=== PATIENT | female | born 1955 | race Caucasian/White ===

== ENCOUNTER → 2016-11-08 | Outpatient (CLI) | payer MEDICARE, BC ==
[2016-11-08 12:05] LABS: Basophils % (A) 1 %; CH 32.1; CHCM 32.7; Eosinophils # (A) 0.2 k/uL (0-0.7); Eosinophils % (A) 3 %; HCT 43.6 % (34.0-46.0); HDW 2.91; Luc # (Auto) 0.19; Luc % (Auto) 3; Lymphocytes # (A) 1.9 k/uL (1.0-4.8); Lymphocytes % (A) 27 %; MCH 31.8 pg (25.0-35.0); MCHC 32.1 g/dL (31.0-37.0); MCV 98.8 fL (80.0-100.0); Mean Platelet Volume 7.7; Monocytes # (A) 0.4 k/uL (0-1.0); Monocytes % (A) 6 %; Neutrophils # (A) 4.1 k/uL (1.3-7.7); Neutrophils % (A) 60 %; RBC 4.41 m/uL (3.80-5.40); RDW 14.4 % (11.5-15.5); WBC 6.8 k/uL (3.8-10.6); WBC (Perox) 7.01
[2016-11-08 12:17] LABS: ALT 30 U/L (9-52); AST 18 U/L (14-36); Alkaline Phosphatase 106 U/L (38-126); Anion Gap 11 mmol/L; Blood Urea Nitrogen 16 mg/dL (7-17); Calcium 9.4 mg/dL (8.4-10.2); Carbon Dioxide 25 mmol/L (22-30); Chloride 107 mmol/L (98-107); Cholesterol 173 mg/dL (<200); Glucose 100 mg/dL (74-99); HDL Cholesterol 49 mg/dL (40-60); Non-African American GFR(MDRD) 56 (>60 ml/min/1.73 sqM); Potassium 4.4 mmol/L (3.5-5.1); Sodium 143 mmol/L (137-145); Total Bilirubin 0.6 mg/dL (0.2-1.3); Total Protein 6.7 g/dL (6.3-8.2); Triglycerides 121 mg/dL (<150)
[2016-11-08 13:21] LABS: Vitamin B12 299 pg/mL (239-931)
== END | disposition home or self-care (01) ==
LOC: LABWHC1 11:35
PROVIDERS: ATTEND Family Medicine
DX: E55.9 Vitamin D deficiency, unspecified (principal); I10 Essential (primary) hypertension; E78.00 Pure hypercholesterolemia, unspecified; E53.8 Deficiency of other specified B group vitamins; E03.9 Hypothyroidism, unspecified
CPT/HCPCS: 36415; 80053; 80061; 82306; 82607; 82746; 84443; 85025

== ENCOUNTER → 2016-11-26 | Outpatient (CLI) | payer MEDICARE, BC ==
--- NOTE | 2016-11-26 13:34 | US ---
EXAMINATION TYPE: US thyroid st tissue head/neck DATE OF EXAM: 11/26/2016 12:38 PM COMPARISON: NONE CLINICAL HISTORY: E04.1 THYROID NODULE. follow up from 2013 scan GLAND SIZE: Right Lobe: 3.9 x 1.5 x 1.5 cm Overall Parenchyma: heterogenous Left Lobe: 3.4 x 1.4 x 1.4 cm Overall Parenchyma: heterogeneous Isthmus Thickness: 0.3 cm NODULES RIGHT: # of nodules measured on right: 2 1. 0.6 X 0.6 x 0.7 cm hypoechoic solid nodule at the lower pole with well-defined margins; present with microcalcifications. This nodule is wider than tall and shows intranodular vascularity. Prior size: 0.6 x 0.5 x 0.6 cm 2. 0.7 X 0.3 x 0.7 cm hypoechoic mixed nodule at the mid pole with well-defined margins; . This nod ule is taller than wide and shows no intranodular vascularity. Prior size: not previously measured even though multiple other nodules were seen under 5mm. LEFT: # of nodules measured on left: 1 1. 0.9 X 0.4 x 0.7 cm hypoechoic cystic nodule at the mid pole with well-defined margins; . This n odule is wider than tall and shows no intranodular vascularity. Prior size: 0.6 x 0.3 x 0.6 cm ISTHMUS: # of nodules measured in the isthmus: 0 Bilateral neck scanned, no evidence of lymphadenopathy. Nodules as described IMPRESSION: MULTINODULAR GOITER.
== END | disposition home or self-care (01) ==
LOC: RADUSWWP 12:19
PROVIDERS: ATTEND Family Medicine
DX: E04.2 Nontoxic multinodular goiter (principal)
CPT/HCPCS: 76536

== ENCOUNTER → 2017-03-01 | Outpatient (CLI) | payer MEDICARE, BC ==
[2017-03-01 10:24] LABS: INR 1.1 (<1.2); Partial Thromboplastin Time 23.6 sec (22.0-30.0); Prothrombin Time 10.8 sec (9.0-12.0)
== END | disposition home or self-care (01) ==
LOC: LABWHC1 09:51
PROVIDERS: ATTEND Physical Medicine & Rehabilitation
DX: M51.17 Intervertebral disc disorders with radiculopathy, lumbosacral region (principal); M43.16 Spondylolisthesis, lumbar region; M47.817 Spondylosis without myelopathy or radiculopathy, lumbosacral region; M41.86 Other forms of scoliosis, lumbar region; R20.2 Paresthesia of skin; Z86.718 Personal history of other venous thrombosis and embolism; Z51.81 Encounter for therapeutic drug level monitoring; Z79.01 Long term (current) use of anticoagulants
CPT/HCPCS: 36415; 85610; 85730; 86735; 86762; 86765; 86787

== ENCOUNTER → 2017-03-15 | Outpatient (CLI) | payer MEDICARE, BC | END | disposition home or self-care (01) | LOC: LABWHC1 13:48 | PROVIDERS: ATTEND Internal Medicine Endocrinology, Diabetes & Metabolism | DX: E03.8 Other specified hypothyroidism (principal); E04.1 Nontoxic single thyroid nodule | CPT/HCPCS: 36415; 84439; 84443; 84481 ==

== ENCOUNTER → 2017-07-11 | Outpatient (CLI) | payer MEDICARE, BC ==
[2017-07-11 12:08] LABS: Basophils % (A) 1 %; Eosinophils # (A) 0.2 k/uL (0-0.7); Eosinophils % (A) 4 %; HDW 2.72; HGB 13.6 gm/dL (11.4-16.0); Luc # (Auto) 0.24; Luc % (Auto) 4; Lymphocytes # (A) 2.1 k/uL (1.0-4.8); Lymphocytes % (A) 33 %; MCH 31.5 pg (25.0-35.0); MCHC 32.3 g/dL (31.0-37.0); MCV 97.3 fL (80.0-100.0); Mean Platelet Volume 7.1; Monocytes # (A) 0.4 k/uL (0-1.0); Monocytes % (A) 6 %; Neutrophils # (A) 3.4 k/uL (1.3-7.7); Neutrophils % (A) 54 %; RBC 4.31 m/uL (3.80-5.40); RDW 14.1 % (11.5-15.5); WBC 6.4 k/uL (3.8-10.6); WBC (Perox) 6.43
[2017-07-11 12:20] LABS: Appearance,Urine Cloudy (Clear); Bacteria,Urine Rare /hpf; Bilirubin,Urine Negative (Negative); Glucose,Urine (UA) Negative (Negative); Ketones,Urine Negative (Negative); Leukocyte Esterase,Urine Negative (Negative); Mucus,Urine Few /hpf; Nitrite,Urine Negative (Negative); PH, Urine 5.5 (5.0-8.0); Particle Count 4844; Protein,Urine 1+ (Negative); RBC,Urine <1 /hpf (0-5); Specific Gravity,Urine 1.023 (1.001-1.035); Squamous Epithelial Cell,Urine 12 /hpf (0-4); UA Billing (MACRO vs. MICRO) MICRO; Urobilinogen,Urine <2.0 mg/dL (<2.0); WBC,Urine 2 /hpf (0-5)
[2017-07-11 12:40] LABS: Anion Gap 8 mmol/L; Blood Urea Nitrogen 16 mg/dL (7-17); Calcium 9.5 mg/dL (8.4-10.2); Carbon Dioxide 22 mmol/L (22-30); Chloride 110 mmol/L (98-107); Glucose 104 mg/dL (74-99); Non-African American GFR(MDRD) 56 (>60 ml/min/1.73 sqM); Potassium 4.5 mmol/L (3.5-5.1); Sodium 140 mmol/L (137-145)
[2017-07-11 13:32] LABS: INR 1.9 (<1.2); Partial Thromboplastin Time 29.2 sec (22.0-30.0); Prothrombin Time 18.7 sec (9.0-12.0)
--- NOTE | 2017-07-11 16:38 | XR ---
EXAMINATION TYPE: XR chest 2V DATE OF EXAM: 07/11/2017 COMPARISON: 12/29/2015 HISTORY: 61-year-old female preoperative evaluation prior to lumbar fusion TECHNIQUE: Frontal and lateral views FINDINGS: The heart is borderline enlarged. Aorta and pulmonary vasculature within normal limits. Mild intersti tial prominence is chronic and unchanged. No consolidation or pleural effusion. IMPRESSION: 1. Borderline heart size. 2. Chronic changes; no acute cardiopulmonary process.
== END | disposition home or self-care (01) ==
LOC: LABPAT 11:21
PROVIDERS: ATTEND Orthopaedic Surgery Orthopaedic Surgery of the Spine
DX: Z01.818 Encounter for other preprocedural examination (principal); Z01.812 Encounter for preprocedural laboratory examination; M48.061 Spinal stenosis, lumbar region without neurogenic claudication
CPT/HCPCS: 36415; 71020; 80048; 81001; 85025; 85610; 85730; 87070

== ENCOUNTER → 2017-07-22 | Outpatient (CLI) | payer MEDICARE, BC | END | disposition home or self-care (01) | LOC: LABWHC1 09:00 | PROVIDERS: ATTEND Orthopaedic Surgery Orthopaedic Surgery of the Spine | DX: Z01.812 Encounter for preprocedural laboratory examination (principal) | CPT/HCPCS: 86850; 86900; 86901 ==

== ENCOUNTER → 2017-12-22 | Outpatient (CLI) | payer MEDICARE, BC ==
[2017-12-22 11:06] LABS: Basophils % (A) 0 %; Eosinophils # (A) 0.2 k/uL (0-0.7); Eosinophils % (A) 3 %; HCT 36.1 % (34.0-46.0); HGB 12.2 gm/dL (11.4-16.0); Lymphocytes # (A) 2.4 k/uL (1.0-4.8); Lymphocytes % (A) 30 %; MCH 30.5 pg (25.0-35.0); MCHC 33.6 g/dL (31.0-37.0); MCV 90.6 fL (80.0-100.0); Mean Platelet Volume 7.1; Monocytes # (A) 0.5 k/uL (0-1.0); Monocytes % (A) 6 %; Neutrophils # (A) 4.8 k/uL (1.3-7.7); Neutrophils % (A) 59 %; Platelet Count 328 k/uL (150-450); RBC 3.99 m/uL (3.80-5.40); WBC 8.1 k/uL (3.8-10.6)
[2017-12-22 11:16] LABS: INR 2.9 (<1.2); Prothrombin Time 25.9 sec (9.0-12.0)
[2017-12-22 11:32] LABS: Albumin 3.7 g/dL (3.5-5.0); Calcium 9.4 mg/dL (8.4-10.2); Potassium 4.2 mmol/L (3.5-5.1); Total Bilirubin 0.5 mg/dL (0.2-1.3); Total Protein 6.5 g/dL (6.3-8.2)
== END | disposition home or self-care (01) ==
LOC: LABWHC1 10:40
PROVIDERS: ATTEND Family Medicine
DX: E55.9 Vitamin D deficiency, unspecified (principal); I10 Essential (primary) hypertension; E03.9 Hypothyroidism, unspecified; D68.9 Coagulation defect, unspecified
CPT/HCPCS: 36415; 80053; 80061; 82306; 84443; 85025; 85610

== ENCOUNTER → 2018-05-30 | Outpatient (CLI) | payer MEDICARE, BC ==
--- NOTE | 2018-05-30 08:19 | BD ---
EXAMINATION TYPE: Axial Bone Density DATE OF EXAM: 05/30/2018 CLINICAL HISTORY: Postmenopausal female. Osteoporosis screening. Height: 62.5 Weight: 218 FRAX RISK QUESTIONS: Alcohol (3 or more units per day): no Family History (Parent hip fracture): no Glucocorticoids (More than 3mos): yes, on & off as needed (Ex: prednisone, prednisolone, methylprednisolone, dexamethasone, and hydrocortisone). History of Fracture in Adulthood: yes; both feet, ankle Secondary Osteoporosis: 1. Type 1 Diabetes: no 2. Hyperthyroidism: no 3. Menopause before 45: yes 4. Malnutrition: no 5. Chronic liver disease: no Rheumatoid Arthritis: no Current Tobacco Use: yes RISK FACTORS HISTORY OF: History of Wrist Fracture: yes; patient believes it was right When: as child Surgery to Spine, hips, : yes, laminectomy fusion Jul 2017 & bilateral hip replacement Family History of Osteoporosis: yes, mother Active: yes Diet low in dairy products/other sources of calcium: perhaps about one serving a day of cheese Postmenopausal woman: yes Take estrogen and/or progesterone medications: not now How long: about age [age] Lost more than 2 inches in height since high school: states was about 64 inches tall at one time, to ay measure at about 62.5 inches Frequent falls: yes Poor Health: fair health Hyperparathyroidism: no Adrenal Insufficiency: no MEDICATIONS: Prednisone or other steroids: yes How Long: about 20 years as needed Thyroid Medications: yes Which medication: Synthroid How Long: about 40 years Osteoporosis Medications: no Additional Medications: blood pressure meds, cholesterol meds (see notes scanned ) Additional History: multilevel degenerative disc disease EXAM MEASUREMENTS: Bone mineral densitometry was performed using the [employer]. Bone mineral density NOT measured about the Lumbar spine because of back surgery since last Bone Dens ity study in 2011 Bone mineral density about the R hip NOT measured due to right replacement since last Bone Density st udy in 2011 Bone mineral density about the L hip NOT measured due to left replacement since last Bone Density st udy in 2011 Bone mineral density about the L Wrist (g/cm2): 0.642 T Score values are as follows: -----Dist. R+U: -0.4 -----Prox. R+U: -0.2 -----Radius total: -0.5 Bone mineral density for wrist is BASELINE ( previously scan was performed on hips & Lumbar Spine) IMPRESSION: Normal (Values between +1 and -1 indicate normal bone mass). Consider repeating this study in 5 year s or sooner if there is some new clinical indication. NOTE: T-SCORE=SD OF THE YOUNG ADULT MEAN.
--- NOTE | 2018-05-30 08:51 | US ---
EXAMINATION TYPE: US thyroid st tissue head/neck DATE OF EXAM: 05/30/2018 COMPARISON: 2017 CLINICAL HISTORY: E04.1.THYROID NODULE. GLAND SIZE: Right Lobe: 4.5 X 1.0 X 1.7 cm Overall Parenchyma: heterogenous Left Lobe: 4.1 X 1.1 X 1.2 cm Overall Parenchyma: heterogeneous Isthmus Thickness: 0.2 cm NODULES RIGHT: # of nodules measured on right: 3 1. 0.5 X 0.6 x 0.5 cm solid nodule at the lower pole with well-defined margins; . This nodule is w ider than tall and shows intranodular vascularity. Prior size: 0.6 x 0.6 x 0.7 cm 2. 0.7 X 0.6 x 0.5 cm mixed nodule at the mid pole with well-defined margins; . This nodule is wider than tall and shows no intranodular vascularity. Prior size: 0.7 x 0.3 x 0.7 cm 3. 0.6 X 0.7 x 0.5 cm solid nodule at the upper pole with well-defined margins; present with microca lcifications. This nodule is wider than tall and shows no intranodular vascularity. Prior size: no prior LEFT: # of nodules measured on left: 1 1. 0.9 X 0.6 x 0.4 cm cystic nodule at the mid pole with well-defined margins; . This nodule is wi aiden than tall and shows no intranodular vascularity. Prior size: 0.9 x 0.4 x 0.7 cm ISTHMUS: # of nodules measured in the isthmus: 0 Bilateral neck scanned, no evidence of lymphadenopathy. IMPRESSION: Similar size of the bilateral multiple thyroid nodules in a mildly enlarged thyroid gland compatible with multinodular goiter. No greater than 1 cm nodule.
--- NOTE | 2018-05-30 11:15 | MM ---
Reason for exam: screening (asymptomatic). Last mammogram was performed 1 year and 10 months ago. History: Patient is postmenopausal. Took estrogen for 10 years beginning at age 26. Physical Findings: A clinical breast exam by your physician is recommended on an annual basis and results should be correlated with mammographic findings. MG 3D Screening Mammo W/Cad Bilateral CC and MLO view(s) were taken. Prior study comparison: July 30, 2016, bilateral MG 3d screening mammo w/cad. August 13, 2013, bilateral digital screening mammo w/CAD. The breast tissue is almost entirely fat. No significant changes when compared with prior studies. ASSESSMENT: Benign, BI-RAD 2 RECOMMENDATION: Routine screening mammogram of both breasts in 1 year.
== END ==
LOC: RADBDWWP 07:04
PROVIDERS: ATTEND Family Medicine
DX: Z12.31 Encounter for screening mammogram for malignant neoplasm of breast (principal); E04.2 Nontoxic multinodular goiter; Z78.0 Asymptomatic menopausal state
CPT/HCPCS: 76536; 77063; 77067; 77081

== ENCOUNTER → 2019-01-24 | Outpatient (CLI) | payer MEDICARE, BC ==
[2019-01-24 11:55] LABS: INR 2.8 (<1.2); Prothrombin Time 27.2 sec (9.0-12.0)
== END | disposition home or self-care (01) ==
LOC: LABWHC1 10:20
PROVIDERS: ATTEND Family Medicine
DX: D68.9 Coagulation defect, unspecified (principal)
CPT/HCPCS: 36415; 85610

== ENCOUNTER → 2020-05-27 | Outpatient (CLI) | payer MEDICARE, BC ==
--- NOTE | 2020-05-27 07:52 | US ---
EXAMINATION TYPE: US thyroid st tissue head/neck DATE OF EXAM: 05/27/2020 COMPARISON: US CLINICAL HISTORY: Z12.31 Screening mammogram; E04.1 thyroid nodule. F/U nodules GLAND SIZE: Right Lobe: 4.0 x 1.4 x 1.1 cm Overall Parenchyma: heterogenous Left Lobe: 3.8 x 1.4 x 1.2 cm Overall Parenchyma: heterogeneous Isthmus Thickness: 0.2 cm NODULES RIGHT: # of nodules measured on right: 1 1. 0.5 X 0.6 x 0.6 cm isoechoic solid nodule at the lower pole with well-defined margins; This nod ule is wider than tall and shows no intranodular vascularity. Prior size: 0.5 x 0.6 x 0.5 cm Stable sub-centimeter cystic nodules scattered throughout right lobe LEFT: # of nodules measured on left: 1 1. 0.7 X 0.2 x 0.5 cm cystic nodule at the mid pole with well-defined margins; This nodule is wider than tall and shows no intranodular vascularity. Prior size: 0.9 x 0.4 x 0.6 cm Stable sub-centimeter cystic nodules scattered throughout left lobe Bilateral neck scanned, no evidence of lymphadenopathy. Stable sub-centimeter nodules bilaterally. IMPRESSION: Stable nonspecific thyroid nodularity.
[2020-05-27 08:25] LABS: Basophils # (A) 0.1 k/uL (0-0.2); Basophils % (A) 1 %; Eosinophils # (A) 0.2 k/uL (0-0.7); Eosinophils % (A) 4 %; HCT 43.3 % (34.0-46.0); HGB 14.3 gm/dL (11.4-16.0); Lymphocytes # (A) 2.4 k/uL (1.0-4.8); Lymphocytes % (A) 35 %; MCH 33.9 pg (25.0-35.0); MCHC 33.1 g/dL (31.0-37.0); MCV 102.3 fL (80.0-100.0); Macrocytosis Slight; Mean Platelet Volume 6.9; Monocytes # (A) 0.4 k/uL (0-1.0); Monocytes % (A) 6 %; Neutrophils # (A) 3.5 k/uL (1.3-7.7); Neutrophils % (A) 52 %; Platelet Count 263 k/uL (150-450); RBC 4.23 m/uL (3.80-5.40); RDW 14.3 % (11.5-15.5); WBC 6.7 k/uL (3.8-10.6)
[2020-05-27 09:01] LABS: Albumin 3.8 g/dL (3.5-5.0); Calcium 9.2 mg/dL (8.4-10.2); Potassium 4.5 mmol/L (3.5-5.1); Total Bilirubin 0.6 mg/dL (0.2-1.3); Total Protein 6.8 g/dL (6.3-8.2)
--- NOTE | 2020-05-28 11:42 | MM ---
Reason for exam: screening (asymptomatic). Last mammogram was performed 2 years ago. History: Patient is postmenopausal and history of other cancer. Took estrogen for 10 years beginning at age 26. Physical Findings: A clinical breast exam by your physician is recommended on an annual basis and results should be correlated with mammographic findings. MG 3D Screening Mammo W/Cad Bilateral CC and MLO view(s) were taken. Prior study comparison: May 30, 2018, bilateral MG 3d screening mammo w/cad. July 30, 2016, bilateral MG 3d screening mammo w/cad. There are scattered fibroglandular densities. There is no discrete abnormality. No significant changes when compared with prior studies. ASSESSMENT: Negative, BI-RAD 1 RECOMMENDATION: Routine screening mammogram of both breasts in 1 year.
== END | disposition home or self-care (01) ==
LOC: RADMAMWWP 06:57
PROVIDERS: ATTEND Family Medicine
DX: Z12.31 Encounter for screening mammogram for malignant neoplasm of breast (principal); E04.1 Nontoxic single thyroid nodule; I10 Essential (primary) hypertension; E55.9 Vitamin D deficiency, unspecified
CPT/HCPCS: 36415; 76536; 77063; 77067; 80053; 82306; 84443; 85025; 85610

== ENCOUNTER 2020-07-12 00:06 | Emergency (ER) | payer MEDICARE, BC ==
[2020-07-12] MEDS ORDERED: SODIUM CHLORIDE 0.9% 500 ML 500 ML IV STA (00:19)
[2020-07-12 00:27] LABS: Glucose,Whole Blood 119 mg/dL (75-99)
--- NOTE | 2020-07-12 00:54 | ED ---
Weakness HPI - General Chief complaint: Weakness Stated complaint: Poss stroke Time Seen by Provider: 07/12/20 00:12 Source: patient, EMS Mode of arrival: EMS Limitations: no limitations, physical limitation - History of Present Illness Initial comments: This patient is a 64-year-old woman brought by ambulance to be evaluated for right-sided weakness. The patient relates that on night at about 8 PM she had a fall. Subsequent to that she noticed development of right-sided weakness which has gotten worse. She also has headache. She does note that there had been a little bit of a headache going back to 3 days is now much worse. The patient states that she takes warfarin and has done so for years after she had developed PE approximately 2004. MD Complaint: focal weakness Onset/Timin -: hour(s) Location: RUE, DILLANE Severity: severe Quality: constant Consistency: constant Improves with: none Worsens with: none Context: trauma/injury - Related Data Home Medications Medication Instructions Recorded Confirmed Aspirin 81 mg PO QAM 07/27/14 07/27/17 Warfarin [Coumadin] 2.5 mg PO SUTUTHSA 07/27/14 07/27/17 Warfarin [Coumadin] 5 mg PO MOWEFR 07/27/14 07/27/17 oxyCODONE HCL [oxyCODONE HCL (IR)] 10 mg PO Q8H PRN 07/27/14 07/27/17 Albuterol Inhaler (Mhu) [Ventolin 2 puff INHALATION RT-Q6H PRN 12/28/15 07/27/17 Hfa Inhaler (Mhu)] Artificial Tears-Hypromellose 1 drops BOTH EYES TID PRN 12/28/15 07/27/17 [Artificial Tear Drops] Cevimeline [Evoxac] 30 mg PO TID 12/28/15 07/27/17 Cholecalciferol [Vitamin D3 (25 2,000 unit PO QAM 12/28/15 07/27/17 Mcg = 1000 Iu)] Docusate [Colace] 100 mg PO Q48H PRN 12/28/15 07/27/17 Famotidine [Pepcid] 20 mg PO BID 12/28/15 07/27/17 Levothyroxine Sodium [Synthroid] 37.5 mcg PO QAM 12/28/15 07/27/17 Lisinopril [Prinivil] 5 mg PO HS 12/28/15 07/27/17 Montelukast Sodium [Singulair] 10 mg PO HS 12/28/15 07/27/17 Pravastatin Sodium [Pravachol] 10 mg PO HS 12/28/15 07/27/17 Pregabalin [Lyrica] 150 mg PO BID 12/28/15 07/27/17 Venlafaxine HCl ER [Effexor XR] 150 mg PO QAM 12/28/15 07/27/17 Budesonide-Formot 160-4.5 Mcg 2 puff INHALATION RT-BID PRN 07/27/17 07/27/17 [Symbicort 160-4.5 Mcg Inhaler] Ipratropium Nebulized [Atrovent 0.5 mg INHALATION RT-QID PRN 07/27/17 07/27/17 Nebulized 0.2 MG/ML] Levalbuterol Nebulized (Conc) 1.25 mg INHALATION RT-QID PRN 07/27/17 07/27/17 [Xopenex Nebulized (Conc)] Metoprolol Succinate (ER) [Toprol 50 mg PO DAILY 07/27/17 07/27/17 Xl] amLODIPine BESYLATE [Norvasc] 5 mg PO DAILY 07/27/17 07/27/17 Previous Rx's Medication Instructions Recorded Nicotine 14Mg/24Hr Patch [Habitrol] 1 patch TRANSDERM DAILY #30 patch 12/31/15 diazePAM [Valium] 5 mg PO TID PRN #90 tab 08/03/17 Allergies Allergy/AdvReac Type Severity Reaction Status Date / Time erythromycin lactobionate Allergy RASH,VOMITI Verified 07/12/20 00:46 [From Erythrocin] NG influenza virus vaccine, Allergy LOW WHITE Verified 07/12/20 00:46 specific COUNT,INFLAMED [influenza virus LIVER vacc,specific] morphine Allergy Nausea & Verified 07/12/20 00:46 Vomiting shellfish derived [Shellfish] Allergy Swelling Verified 07/12/20 00:46 of tongue,rash iodine AdvReac Anaphylaxis Verified 07/12/20 00:46 Review of Systems ROS Statement: Those systems with pertinent positive or pertinent negative responses have been documented in the HPI. ROS Other: All systems not noted in ROS Statement are negative. Constitutional: Denies: fever, chills Eyes: Denies: vision change ENT: Denies: hearing loss, epistaxis Respiratory: Denies: cough, dyspnea Cardiovascular: Denies: chest pain, palpitations, syncope Gastrointestinal: Denies: abdominal pain, vomiting, diarrhea Genitourinary: Denies: dysuria, hematuria Musculoskeletal: Denies: back pain Skin: Denies: rash Neurological: Reports: headache, weakness Hematological/Lymphatic: Reports: other (Taking warfarin) Past Medical History Past Medical History: Asthma, Coronary Artery Disease (CAD), Deep Vein Thrombosis (DVT), Fibromyalgia, GERD/Reflux, Hyperlipidemia, Hypertension, Osteoarthritis (OA), Pneumonia, Thyroid Disorder Additional Past Medical History / Comment(s): "osteopenia, renal insufficiency, back pain chronic per patient" History of Any Multi-Drug Resistant Organisms: None Reported Past Surgical History: Appendectomy, Cholecystectomy, Hysterectomy, Joint Replacement Additional Past Surgical History / Comment(s): TOTAL RIGHT AND LEFT HIP, TOTAL RIGHT AND LEFT KNEE, BILATERAL FOOT SURGERY, BILATERAL HAND SURGERY-JOINT REPLACEMENT, Chamisal filter placement, left wrist tendon repair, posterior lateral decompression and fusion of the lumbar spine Past Anesthesia/Blood Transfusion Reactions: No Reported Reaction Past Psychological History: No Psychological Hx Reported Smoking Status: Current every day smoker Past Alcohol Use History: Occasional Past Drug Use History: Marijuana - Past Family History Father Family Medical History: Congestive Heart Failure (CHF) Additional Family Medical History / Comment(s): Father is alive at age 85 currently at the hospice home with history of mesothelioma Mother Family Medical History: Cancer, Deep Vein Thrombosis (DVT) Additional Family Medical History / Comment(s): Mother is alive at age 85 currently at the hospice home with history of dementia and GI cancer. Sister(s) Family Medical History: Cancer Additional Family Medical History / Comment(s): Patient has 3 sisters and 3 brothers. Daughter(s) Additional Family Medical History / Comment(s): Patient is 3 daughters and one has history of arrhythmia. Patient has 2 sons with no major medical problems. General Exam Limitations: no limitations, physical limitation General appearance: alert, in no apparent distress Head exam: Present: atraumatic, normocephalic Eye exam: Present: normal appearance, PERRL, EOMI. Absent: scleral icterus, conjunctival injection ENT exam: Present: normal oropharynx Neck exam: Present: normal inspection Respiratory exam: Present: normal lung sounds bilaterally. Absent: respiratory distress, wheezes, rales, rhonchi, stridor Cardiovascular Exam: Present: regular rate, normal rhythm, normal heart sounds. Absent: systolic murmur, diastolic murmur, rubs, gallop GI/Abdominal exam: Present: soft. Absent: distended, tenderness, guarding, rebo und, rigid, mass Extremities exam: Present: normal inspection, normal capillary refill. Absent: pedal edema, calf tenderness Back exam: Present: normal inspection. Absent: CVA tenderness (R), CVA tenderness (L) Neurological exam: Present: alert, oriented X3, CN II-XII intact, motor sensory deficit Course Vital Signs 07/12/20 07/12/20 07/12/20 00:07 00:25 00:35 Temperature 98.7 F Pulse Rate 107 H 104 H 106 H Respiratory 22 22 20 Rate Blood Pressure 186/99 172/92 154/120 O2 Sat by Pulse 96 96 96 Oximetry 07/12/20 07/12/20 07/12/20 00:50 01:05 01:20 Temperature 98.7 F Pulse Rate 105 H 105 H 104 H Respiratory 18 16 18 Rate Blood Pressure 162/82 182/97 185/96 O2 Sat by Pulse 96 96 96 Oximetry - Reevaluation(s) Reevaluation #1: 07/12/20 01:16 I reviewed the patient's computed tomography scan which does show intraparenchymal and subdural hemorrhage, I did receive a call from the radiologist. I did initiate the transfer team attempting to reach neurosurgeon through [facility] Reevaluation #2: 07/12/20 01:45 Transfer team at [facility] did inform us that neurosurgery is not able to take the patient though there was some delay and they're getting back to us. The patient then expressed desire for [facility]. I surgical he discussed case with Dr. Waldrop at [facility] who will accept patient after she had discussed the case with their neurosurgeon on-call Reevaluation #3: 07/12/20 02:10 Subsequent discussion with patient's on the phone, reveals the patient may have been having some weakness prior to the fall that this weakness may have led to the fall. EKG Findings - EKG Results: EKG: interpreted by GRABIEL, sinus rhythm, normal axis, normal QRS, normal ST/T EKG shows: tachycardia (Rate 13 bpm) Medical Decision Making - Medical Decision Making Patient is 64-year-old woman with ground-level fall approximately 29 hours prior presenting with right sided weakness. Her CT does show intraparenchymal and subdural hemorrhage. Initially discussed with patient and she expressed desire to go to closest facility, [facility]. Please see the course. Patient then expressed desire to go to [facility] after [facility] unavailable. - Lab Data Result diagrams: 07/12/20 00:29 07/12/20 00:29 Lab Results 07/12/20 07/12/20 07/12/20 Range/Units 00:22 00:29 00:29 WBC 10.9 H (3.8-10.6) k/uL RBC 4.26 (3.80-5.40) m/uL Hgb 13.6 (11.4-16.0) gm/dL Hct 42.5 (34.0-46.0) % MCV 99.8 (80.0-100.0) fL MCH 31.8 (25.0-35.0) pg MCHC 31.9 (31.0-37.0) g/dL RDW 15.4 (11.5-15.5) % Plt Count 286 (150-450) k/uL MPV 7.4 Neutrophils % 72 % Lymphocytes % 18 % Monocytes % 8 % Eosinophils % 1 % Basophils % 0 % Neutrophils # 7.8 H (1.3-7.7) k/uL Lymphocytes # 1.9 (1.0-4.8) k/uL Monocytes # 0.9 (0-1.0) k/uL Eosinophils # 0.1 (0-0.7) k/uL Basophils # 0.0 (0-0.2) k/uL Macrocytosis Slight PT 44.5 H (9.0-12.0) sec INR 4.5 H (<1.2) APTT 53.5 H (22.0-30.0) sec Sodium (137-145) mmol/L Potassium (3.5-5.1) mmol/L Chloride (98-107) mmol/L Carbon Dioxide (22-30) mmol/L Anion Gap mmol/L BUN (7-17) mg/dL Creatinine (0.52-1.04) mg/dL Est GFR (CKD-EPI)AfAm (>60 ml/min/1.73 sqM) Est GFR (CKD-EPI)NonAf (>60 ml/min/1.73 sqM) Glucose (74-99) mg/dL POC Glucose (mg/dL) 119 H (75-99) mg/dL POC Glu [employer] Analyst ID Giovana Oro Calcium (8.4-10.2) mg/dL Total Bilirubin (0.2-1.3) mg/dL AST (14-36) U/L ALT (4-34) U/L Alkaline Phosphatase (38-126) U/L Troponin I (0.000-0.034) ng/mL Total Protein (6.3-8.2) g/dL Albumin (3.5-5.0) g/dL 07/12/20 07/12/20 Range/Units 00:29 00:29 WBC (3.8-10.6) k/uL RBC (3.80-5.40) m/uL Hgb (11.4-16.0) gm/dL Hct (34.0-46.0) % MCV (80.0-100.0) fL MCH (25.0-35.0) pg MCHC (31.0-37.0) g/dL RDW (11.5-15.5) % Plt Count (150-450) k/uL MPV Neutrophils % % Lymphocytes % % Monocytes % % Eosinophils % % Basophils % % Neutrophils # (1.3-7.7) k/uL Lymphocytes # (1.0-4.8) k/uL Monocytes # (0-1.0) k/uL Eosinophils # (0-0.7) k/uL Basophils # (0-0.2) k/uL Macrocytosis PT (9.0-12.0) sec INR (<1.2) APTT (22.0-30.0) sec Sodium 136 L (137-145) mmol/L Potassium 4.8 (3.5-5.1) mmol/L Chloride 106 (98-107) mmol/L Carbon Dioxide 25 (22-30) mmol/L Anion Gap 5 mmol/L BUN 23 H (7-17) mg/dL Creatinine 1.52 H (0.52-1.04) mg/dL Est GFR (CKD-EPI)AfAm 41 (>60 ml/min/1.73 sqM) Est GFR (CKD-EPI)NonAf 36 (>60 ml/min/1.73 sqM) Glucose 122 H (74-99) mg/dL POC Glucose (mg/dL) (75-99) mg/dL POC Glu [employer] Systems Analyst ID Calcium 9.5 (8.4-10.2) mg/dL Total Bilirubin 0.7 (0.2-1.3) mg/dL AST 56 H (14-36) U/L ALT 50 H (4-34) U/L Alkaline Phosphatase 198 H (38-126) U/L Troponin I <0.012 (0.000-0.034) ng/mL Total Protein 7.4 (6.3-8.2) g/dL Albumin 4.2 (3.5-5.0) g/dL Critical Care Time Critical Care Time: Yes (60) Disposition Clinical Impression: Subdural hematoma, Intraparenchymal hematoma of brain due to trauma Disposition: ADMITTED IP TO THIS [facility] Condition: Critical Is patient prescribed a controlled substance at d/c from ED?: No Referrals: Eddy Siu MD [Primary Care Provider] - 1-2 days
--- NOTE | 2020-07-12 00:56 | XR ---
EXAMINATION TYPE: XR chest 1V DATE OF EXAM: 07/12/2020 COMPARISON: 07/11/2017 HISTORY: Altered mental status TECHNIQUE: FINDINGS: Heart is enlarged. There is pulmonary interstitial edema. Exam limited by patient's size. T here is no definite pleural effusion. There are chest leads. IMPRESSION: There is new pulmonary interstitial edema compared to old exam that could be acute heart failure. No significant pleural fluid.
[2020-07-12 00:58] LABS: Basophils % (A) 0 %; Eosinophils # (A) 0.1 k/uL (0-0.7); Eosinophils % (A) 1 %; HCT 42.5 % (34.0-46.0); HGB 13.6 gm/dL (11.4-16.0); Lymphocytes # (A) 1.9 k/uL (1.0-4.8); Lymphocytes % (A) 18 %; MCH 31.8 pg (25.0-35.0); MCHC 31.9 g/dL (31.0-37.0); MCV 99.8 fL (80.0-100.0); Macrocytosis Slight; Mean Platelet Volume 7.4; Monocytes # (A) 0.9 k/uL (0-1.0); Monocytes % (A) 8 %; Neutrophils # (A) 7.8 k/uL (1.3-7.7); Neutrophils % (A) 72 %; Platelet Count 286 k/uL (150-450); RBC 4.26 m/uL (3.80-5.40); RDW 15.4 % (11.5-15.5); WBC 10.9 k/uL (3.8-10.6)
[2020-07-12] MEDS ORDERED: HYDROmorphone 0.5 MG/0.5 ML SYRINGE IVP STA (01:06)
[2020-07-12 01:07] LABS: INR 4.5 (<1.2); Partial Thromboplastin Time 53.5 sec (22.0-30.0); Prothrombin Time 44.5 sec (9.0-12.0)
[2020-07-12 01:12] LABS: Albumin 4.2 g/dL (3.5-5.0); Calcium 9.5 mg/dL (8.4-10.2); Potassium 4.8 mmol/L (3.5-5.1); Total Bilirubin 0.7 mg/dL (0.2-1.3); Total Protein 7.4 g/dL (6.3-8.2)
--- NOTE | 2020-07-12 01:16 | CT ---
EXAMINATION TYPE: CT brain wo con DATE OF EXAM: 07/12/2020 COMPARISON: None HISTORY: RIGHT ARM NUMBNESS CT DLP: 1063.4 mGycm Automated exposure control for dose reduction was used. There is 2.3 cm rounded area of high attenuation left posterior frontal lobe white matter. There is l arge area of intracranial hemorrhage involving the left frontoparietal convexity that appears extra-a xial and subdural and measures up to 2 cm in thickness. There is some mass effect upon the left later al ventricle with slight effacement. There is slight midline shift to the right side. There are a few small foci of calcification in the left parietal convexity near the midline at could BE arachnoid ca lcification. The calvarium is intact. I see no evidence of a skull fracture. The skull base is intact . There is normal aeration of the mastoid sinuses. There is small amount of subdural acute hemorrhage along the inferior left temporal lobe extending in to the left middle cranial fossa. IMPRESSION: Large left hemisphere subdural acute hemorrhage as above. There is a smaller component of left art consultant ior frontal and left anterior parietal lobe parenchymal hemorrhage. Hemorrhage appears acute. This wo uld be consistent with acute traumatic subdural and intraparenchymal hemorrhage. No skull fracture se en. Exam was discussed with Dr. Coyle at 1:00 AM.
[2020-07-12 01:36] VITALS: PULSE 104
[2020-07-12 02:12] VITALS: BP 172/97; RESP 16; TEMP 98.2
== END 2020-07-12 02:10 | disposition other institution (70) ==
LOC: EC 00:06
DX: S06.5X0A Traumatic subdural hemorrhage without loss of consciousness, initial encounter (principal); J45.909 Unspecified asthma, uncomplicated; I25.10 Atherosclerotic heart disease of native coronary artery without angina pectoris; M79.7 Fibromyalgia; K21.9 Gastro-esophageal reflux disease without esophagitis; E78.5 Hyperlipidemia, unspecified; I10 Essential (primary) hypertension; M19.90 Unspecified osteoarthritis, unspecified site; E07.9 Disorder of thyroid, unspecified; G89.29 Other chronic pain; M85.80 Other specified disorders of bone density and structure, unspecified site; F17.200 Nicotine dependence, unspecified, uncomplicated; Z79.51 Long term (current) use of inhaled steroids; Z79.899 Other long term (current) drug therapy; Z79.890 Hormone replacement therapy; Z79.82 Long term (current) use of aspirin; Z79.01 Long term (current) use of anticoagulants; Z90.49 Acquired absence of other specified parts of digestive tract; Z88.1 Allergy status to other antibiotic agents; Z91.048 Other nonmedicinal substance allergy status; Z88.5 Allergy status to narcotic agent; Z88.7 Allergy status to serum and vaccine; Z91.013 Allergy to seafood; Z96.653 Presence of artificial knee joint, bilateral; Z96.643 Presence of artificial hip joint, bilateral; Z86.718 Personal history of other venous thrombosis and embolism; W18.39XA Other fall on same level, initial encounter
CPT/HCPCS: 36415; 93005; 80053; 84484; 85025; 85610; 85730; 71045; 70450; 99291; 96374; J1170

== ENCOUNTER 2020-08-16 10:04 | Inpatient (IN) | payer MEDICARE, BC ==
--- NOTE | 2020-08-16 10:17 | ED ---
General Adult HPI - General Stated complaint: TAYO Time Seen by Provider: 08/16/20 10:04 Source: patient, RN notes reviewed, old records reviewed - History of Present Illness Initial comments: This is a 64-year-old female presents emergency Department with a past history for COPD and a recent craniotomy for meningioma. No details on that surgery other than what was mentioned is available at this time. No family members with the patient at this time. Patient is confused and her history may not be accurate. Patient believes it is 1952. Patient does not complain of any pain currently she denies any shortness of breath. Patient is only oxygenating in the 80s. When EMS arrived at her house she was unresponsive and her oxygen was in the 40s. Patient was discharged from the hospital recently. No further history is available this time - Related Data Home Medications Medication Instructions Recorded Confirmed Aspirin 81 mg PO QAM 07/27/14 07/27/17 Warfarin [Coumadin] 2.5 mg PO SUTUTHSA 07/27/14 07/27/17 Warfarin [Coumadin] 5 mg PO MOWEFR 07/27/14 07/27/17 oxyCODONE HCL [oxyCODONE HCL (IR)] 10 mg PO Q8H PRN 07/27/14 07/27/17 Albuterol Inhaler (Mhu) [Ventolin 2 puff INHALATION RT-Q6H PRN 12/28/15 07/27/17 Hfa Inhaler (Mhu)] Artificial Tears-Hypromellose 1 drops BOTH EYES TID PRN 12/28/15 07/27/17 [Artificial Tear Drops] Cevimeline [Evoxac] 30 mg PO TID 12/28/15 07/27/17 Cholecalciferol [Vitamin D3 (25 2,000 unit PO QAM 12/28/15 07/27/17 Mcg = 1000 Iu)] Docusate [Colace] 100 mg PO Q48H PRN 12/28/15 07/27/17 Famotidine [Pepcid] 20 mg PO BID 12/28/15 07/27/17 Levothyroxine Sodium [Synthroid] 37.5 mcg PO QAM 12/28/15 07/27/17 Lisinopril [Prinivil] 5 mg PO HS 12/28/15 07/27/17 Montelukast Sodium [Singulair] 10 mg PO HS 12/28/15 07/27/17 Pravastatin Sodium [Pravachol] 10 mg PO HS 12/28/15 07/27/17 Pregabalin [Lyrica] 150 mg PO BID 12/28/15 07/27/17 Venlafaxine HCl ER [Effexor XR] 150 mg PO QAM 12/28/15 07/27/17 Budesonide-Formot 160-4.5 Mcg 2 puff INHALATION RT-BID PRN 07/27/17 07/27/17 [Symbicort 160-4.5 Mcg Inhaler] Ipratropium Nebulized [Atrovent 0.5 mg INHALATION RT-QID PRN 07/27/17 07/27/17 Nebulized 0.2 MG/ML] Levalbuterol Nebulized (Conc) 1.25 mg INHALATION RT-QID PRN 07/27/17 07/27/17 [Xopenex Nebulized (Conc)] Metoprolol Succinate (ER) [Toprol 50 mg PO DAILY 07/27/17 07/27/17 Xl] amLODIPine BESYLATE [Norvasc] 5 mg PO DAILY 07/27/17 07/27/17 Previous Rx's Medication Instructions Recorded Nicotine 14Mg/24Hr Patch [Habitrol] 1 patch TRANSDERM DAILY #30 patch 12/31/15 diazePAM [Valium] 5 mg PO TID PRN #90 tab 08/03/17 Allergies Allergy/AdvReac Type Severity Reaction Status Date / Time erythromycin lactobionate Allergy RASH,VOMITI Verified 07/12/20 00:46 [From Erythrocin] NG influenza virus vaccine, Allergy LOW WHITE Verified 07/12/20 00:46 specific COUNT,INFLAMED [influenza virus LIVER vacc,specific] morphine Allergy Nausea & Verified 07/12/20 00:46 Vomiting shellfish derived [Shellfish] Allergy Swelling Verified 07/12/20 00:46 of tongue,rash iodine AdvReac Anaphylaxis Verified 07/12/20 00:46 Review of Systems ROS Statement: Those systems with pertinent positive or pertinent negative responses have been documented in the HPI. ROS Other: All systems not noted in ROS Statement are negative. Past Medical History Past Medical History: Asthma, Coronary Artery Disease (CAD), Deep Vein Thrombosis (DVT), Fibromyalgia, GERD/Reflux, Hyperlipidemia, Hypertension, Osteoarthritis (OA), Pneumonia, Thyroid Disorder Additional Past Medical History / Comment(s): "osteopenia, renal insufficiency, back pain chronic per patient" History of Any Multi-Drug Resistant Organisms: None Reported Past Surgical History: Appendectomy, Cholecystectomy, Hysterectomy, Joint Replacement Additional Past Surgical History / Comment(s): TOTAL RIGHT AND LEFT HIP, TOTAL RIGHT AND LEFT KNEE, BILATERAL FOOT SURGERY, BILATERAL HAND SURGERY-JOINT REPLACEMENT, [place] filter placement, left wrist tendon repair, posterior lateral decompression and fusion of the lumbar spine Past Anesthesia/Blood Transfusion Reactions: No Reported Reaction Past Psychological History: No Psychological Hx Reported Smoking Status: Current every day smoker Past Alcohol Use History: Occasional Past Drug Use History: Marijuana - Past Family History Father Family Medical History: Congestive Heart Failure (CHF) Additional Family Medical History / Comment(s): Father is alive at age 85 currently at the hospice home with history of mesothelioma Mother Family Medical History: Cancer, Deep Vein Thrombosis (DVT) Additional Family Medical History / Comment(s): Mother is alive at age 85 currently at the hospice home with history of dementia and GI cancer. Sister(s) Family Medical History: Cancer Additional Family Medical History / Comment(s): Patient has 3 sisters and 3 brothers. Daughter(s) Additional Family Medical History / Comment(s): Patient is 3 daughters and one has history of arrhythmia. Patient has 2 sons with no major medical problems. General Exam - General Exam Comments Initial Comments: GENERAL: Patient is well-developed and well-nourished. Patient is nontoxic and well- hydrated and is in mild distress. ENT: Neck is soft and supple. No significant lymphadenopathy is noted. Oropharynx is clear. Moist mucous membranes. Neck has full range of motion without eliciting any pain. EYES: The sclera were anicteric and conjunctiva were pink and moist. Extraocular movements were intact and pupils were equal round and reactive to light. Eyeli ds were unremarkable. PULMONARY: Patient is crackles bilateral bases CARDIOVASCULAR: There is a regular rate and rhythm without any murmurs gallops or rubs. ABDOMEN: Soft and nontender with normal bowel sounds. SKIN: Skin is clear with no lesions or rashes and otherwise unremarkable. NEUROLOGIC: Patient is alert and oriented x3. Cranial nerves II through XII are grossly intact. Motor and sensory are also intact. Normal speech, volume and content. Symmetrical smile. MUSCULOSKELETAL: Normal extremities with adequate strength and full range of motion. LYMPHATICS: No significant lymphadenopathy is noted PSYCHIATRIC: Normal psychiatric evaluation. Course Vital Signs 08/16/20 08/16/20 10:08 11:15 Temperature 97.7 F 97.5 F L Pulse Rate 92 87 Respiratory 22 17 Rate Blood Pressure 133/62 129/76 O2 Sat by Pulse 86 L 100 Oximetry Medical Decision Making - Medical Decision Making EKG shows normal sinus rhythm at 91 bpm UT interval 244 QRS is 80 QT interval 3 32 QTC is 408. Patient's EKG shows no ST segment elevation or depression. Chest x-ray shows diffuse infiltrates bilaterally consistent with COVID. Patient is COVID positive. I spoke with Dr. Orta she agreed to admit the patient admitted the patient wrote admitting orders. Patient continued on BiPAP and I started the patient on steroids as well. - Lab Data Result diagrams: 08/16/20 10:16 08/16/20 10:16 Lab Results 08/16/20 08/16/20 08/16/20 Range/Units 10:16 10:16 10:16 WBC 5.8 (3.8-10.6) k/uL RBC 3.02 L (3.80-5.40) m/uL Hgb 10.4 L D (11.4-16.0) gm/dL Hct 31.0 L (34.0-46.0) % MCV 102.7 H (80.0-100.0) fL MCH 34.5 (25.0-35.0) pg MCHC 33.6 (31.0-37.0) g/dL RDW 16.1 H (11.5-15.5) % Plt Count 162 (150-450) k/uL MPV 8.5 Neutrophils % 84 % Lymphocytes % 12 % Monocytes % 3 % Eosinophils % 0 % Basophils % 0 % Neutrophils # 4.8 (1.3-7.7) k/uL Lymphocytes # 0.7 L (1.0-4.8) k/uL Monocytes # 0.2 (0-1.0) k/uL Eosinophils # 0.0 (0-0.7) k/uL Basophils # 0.0 (0-0.2) k/uL Anisocytosis Slight Macrocytosis Moderate PT 25.8 H (9.0-12.0) sec INR 2.6 H (<1.2) APTT 50.0 H (22.0-30.0) sec D-Dimer 0.52 (<0.60) mg/L FEU Sample Site ABG pH (7.35-7.45) ABG pCO2 (35-45) mmHg ABG pO2 (83-108) mmHg ABG HCO3 (21-25) mmol/L ABG Total CO2 (19-24) mmol/L ABG O2 Saturation (94-97) % ABG Base Excess mmol/L Edson Test FiO2 % Sodium 146 H (137-145) mmol/L Potassium 4.8 (3.5-5.1) mmol/L Chloride 117 H (98-107) mmol/L Carbon Dioxide 27 (22-30) mmol/L Anion Gap 2 mmol/L BUN 48 H (7-17) mg/dL Creatinine 1.01 (0.52-1.04) mg/dL Est GFR (CKD-EPI)AfAm 67 (>60 ml/min/1.73 sqM) Est GFR (CKD-EPI)NonAf 58 (>60 ml/min/1.73 sqM) Glucose 110 H (74-99) mg/dL Plasma Lactic Acid Dino (0.7-2.0) mmol/L Calcium 9.1 (8.4-10.2) mg/dL Magnesium 2.5 H (1.6-2.3) mg/dL Total Bilirubin 0.4 (0.2-1.3) mg/dL AST 74 H (14-36) U/L ALT 79 H (4-34) U/L Alkaline Phosphatase 116 (38-126) U/L Lactate Dehydrogenase 2556 H (313-618) U/L Troponin I (0.000-0.034) ng/mL C-Reactive Protein 220.6 H (<10.0) mg/L NT-Pro-B Natriuret Pep pg/mL Total Protein 5.9 L (6.3-8.2) g/dL Albumin 3.2 L (3.5-5.0) g/dL Coronavirus (PCR) (Not Detectd) 08/16/20 08/16/20 08/16/20 Range/Units 10:16 10:16 10:16 WBC (3.8-10.6) k/uL RBC (3.80-5.40) m/uL Hgb (11.4-16.0) gm/dL Hct (34.0-46.0) % MCV (80.0-100.0) fL MCH (25.0-35.0) pg MCHC (31.0-37.0) g/dL RDW (11.5-15.5) % Plt Count (150-450) k/uL MPV Neutrophils % % Lymphocytes % % Monocytes % % Eosinophils % % Basophils % % Neutrophils # (1.3-7.7) k/uL Lymphocytes # (1.0-4.8) k/uL Monocytes # (0-1.0) k/uL Eosinophils # (0-0.7) k/uL Basophils # (0-0.2) k/uL Anisocytosis Macrocytosis PT (9.0-12.0) sec INR (<1.2) APTT (22.0-30.0) sec D-Dimer (<0.60) mg/L FEU Sample Site ABG pH (7.35-7.45) ABG pCO2 (35-45) mmHg ABG pO2 (83-108) mmHg ABG HCO3 (21-25) mmol/L ABG Total CO2 (19-24) mmol/L ABG O2 Saturation (94-97) % ABG Base Excess mmol/L Edson Test FiO2 % Sodium (137-145) mmol/L Potassium (3.5-5.1) mmol/L Chloride (98-107) mmol/L Carbon Dioxide (22-30) mmol/L Anion Gap mmol/L BUN (7-17) mg/dL Creatinine (0.52-1.04) mg/dL Est GFR (CKD-EPI)AfAm (>60 ml/min/1.73 sqM) Est GFR (CKD-EPI)NonAf (>60 ml/min/1.73 sqM) Glucose (74-99) mg/dL Plasma Lactic Acid Dino 1.6 (0.7-2.0) mmol/L Calcium (8.4-10.2) mg/dL Magnesium (1.6-2.3) mg/dL Total Bilirubin (0.2-1.3) mg/dL AST (14-36) U/L ALT (4-34) U/L Alkaline Phosphatase (38-126) U/L Lactate Dehydrogenase (313-618) U/L Troponin I 0.021 (0.000-0.034) ng/mL C-Reactive Protein (<10.0) mg/L NT-Pro-B Natriuret Pep 1560 pg/mL Total Protein (6.3-8.2) g/dL Albumin (3.5-5.0) g/dL Coronavirus (PCR) (Not Detectd) 08/16/20 08/16/20 Range/Units 10:22 10:44 WBC (3.8-10.6) k/uL RBC (3.80-5.40) m/uL Hgb (11.4-16.0) gm/dL Hct (34.0-46.0) % MCV (80.0-100.0) fL MCH (25.0-35.0) pg MCHC (31.0-37.0) g/dL RDW (11.5-15.5) % Plt Count (150-450) k/uL MPV Neutrophils % % Lymphocytes % % Monocytes % % Eosinophils % % Basophils % % Neutrophils # (1.3-7.7) k/uL Lymphocytes # (1.0-4.8) k/uL Monocytes # (0-1.0) k/uL Eosinophils # (0-0.7) k/uL Basophils # (0-0.2) k/uL Anisocytosis Macrocytosis PT (9.0-12.0) sec INR (<1.2) APTT (22.0-30.0) sec D-Dimer (<0.60) mg/L FEU Sample Site rbrac ABG pH 7.35 (7.35-7.45) ABG pCO2 44 (35-45) mmHg ABG pO2 55 L* (83-108) mmHg ABG HCO3 24 (21-25) mmol/L ABG Total CO2 26 H (19-24) mmol/L ABG O2 Saturation 87.8 L (94-97) % ABG Base Excess -1.5 mmol/L Edson Test Yes FiO2 100 % Sodium (137-145) mmol/L Potassium (3.5-5.1) mmol/L Chloride (98-107) mmol/L Carbon Dioxide (22-30) mmol/L Anion Gap mmol/L BUN (7-17) mg/dL Creatinine (0.52-1.04) mg/dL Est GFR (CKD-EPI)AfAm (>60 ml/min/1.73 sqM) Est GFR (CKD-EPI)NonAf (>60 ml/min/1.73 sqM) Glucose (74-99) mg/dL Plasma Lactic Acid Dino (0.7-2.0) mmol/L Calcium (8.4-10.2) mg/dL Magnesium (1.6-2.3) mg/dL Total Bilirubin (0.2-1.3) mg/dL AST (14-36) U/L ALT (4-34) U/L Alkaline Phosphatase (38-126) U/L Lactate Dehydrogenase (313-618) U/L Troponin I (0.000-0.034) ng/mL C-Reactive Protein (<10.0) mg/L NT-Pro-B Natriuret Pep pg/mL Total Protein (6.3-8.2) g/dL Albumin (3.5-5.0) g/dL Coronavirus (PCR) Detected A (Not Detectd) Disposition Clinical Impression: Pneumonia due to COVID-19 virus, Hypoxia Disposition: ADMITTED IP TO THIS HOSP Referrals: Eddy Siu MD [Primary Care Provider] - 1-2 days Time of Disposition: 11:37
[2020-08-16 10:37] LABS: Anisocytosis Slight; Basophils % (A) 0 %; Eosinophils % (A) 0 %; Lymphocytes # (A) 0.7 k/uL (1.0-4.8); Lymphocytes % (A) 12 %; MCH 34.5 pg (25.0-35.0); MCHC 33.6 g/dL (31.0-37.0); MCV 102.7 fL (80.0-100.0); Macrocytosis Moderate; Mean Platelet Volume 8.5; Monocytes # (A) 0.2 k/uL (0-1.0); Monocytes % (A) 3 %; Neutrophils # (A) 4.8 k/uL (1.3-7.7); Neutrophils % (A) 84 %; Platelet Count 162 k/uL (150-450); RBC 3.02 m/uL (3.80-5.40); RDW 16.1 % (11.5-15.5); WBC 5.8 k/uL (3.8-10.6)
[2020-08-16 10:43] LABS: Potassium 4.8 mmol/L (3.5-5.1)
[2020-08-16 10:44] LABS: HGB 10.4 gm/dL (11.4-16.0)
[2020-08-16 10:45] LABS: Albumin 3.2 g/dL (3.5-5.0); Calcium 9.1 mg/dL (8.4-10.2); Magnesium 2.5 mg/dL (1.6-2.3); Total Bilirubin 0.4 mg/dL (0.2-1.3); Total Protein 5.9 g/dL (6.3-8.2)
[2020-08-16 10:46] LABS: ABG Base Excess -1.5 mmol/L; ABG HCO3 24 mmol/L (21-25); ABG Oxygen Saturation 87.8 % (94-97); ABG PCO2 44 mmHg (35-45); ABG PH 7.35 (7.35-7.45); ABG TCO2 26 mmol/L (19-24); Allen Test Performed? Yes
[2020-08-16 10:46] LABS: D-Dimer 0.52 mg/L FEU (<0.60); INR 2.6 (<1.2); Prothrombin Time 25.8 sec (9.0-12.0)
[2020-08-16 10:49] LABS: ABG PO2 55 mmHg (83-108)
[2020-08-16 10:58] LABS: C Reactive Protein 220.6 mg/L (<10.0)
[2020-08-16] MEDS ORDERED: dexAMETHasone 2 MG TAB PO STA (11:08)
--- NOTE | 2020-08-16 11:09 | XR ---
EXAMINATION TYPE: XR chest 1V portable DATE OF EXAM: 08/16/2020 COMPARISON: Chest x-ray July 12, 2020 HISTORY: Altered mental status and weakness. TECHNIQUE: Single AP portable frontal upright view of the chest is obtained. FINDINGS: Multifocal bilateral opacities. No pleural effusion or pneumothorax seen bilaterally. The cardiac silhouette size is stable and enlarged. The osseous structures are intact. IMPRESSION: Cardiomegaly with bilateral multifocal acute infiltrates could reflect product of covid 19 infection.
--- NOTE | 2020-08-16 11:24 | CT ---
EXAMINATION TYPE: CT brain wo con DATE OF EXAM: 08/16/2020 HISTORY: Difficulty in breathing CT DLP: 1064.4 mGycm. Automated Exposure Control for Dose Reduction was Utilized. TECHNIQUE: CT scan of the head is performed without contrast. COMPARISON: CT brain July 12, 2020. FINDINGS: New left frontal craniotomy. Some new encephalomalacia over the left frontal lobe. No acu te intracranial hemorrhage currently. Background mild ventricular and sulcal prominence. Background m ild to moderate low-attenuation in the periventricular white matter. Globes are intact and visualized sinuses are clear. IMPRESSION: Interval surgical decompression. There is mild diffuse age-related cerebral atrophy and mild to moderate chronic small vessel ischemic change currently. No recurrent acute intracranial hem orrhage.
[2020-08-16 14:57] LABS: Glucose,Whole Blood 110 mg/dL (75-99)
[2020-08-16] MEDS: ZINC SULFATE 220 MG CAP PO SCH (16:05)
[2020-08-16] MEDS: hydrALAZINE HCL 50 MG TAB PO SCH ×2 (16:05→21:27)
[2020-08-16] MEDS: CHOLECALCIFEROL 1,000 UNIT TAB PO SCH (16:05)
[2020-08-16] MEDS: ASCORBIC ACID 500 MG TAB PO SCH (16:06)
--- NOTE | 2020-08-16 16:12 | P.HPIM ---
History of Present Illness H&P Date: 08/16/20 Ms. Sutherland is a 64 years old female patient of Dr. Siu with past medical history of coronary artery disease, hypertension, history of DVT and pulmonary embolism in 2002, fibromyalgia, asthma who presented to the hospital with worsening shortness of breath associated with change in mental status for the past 24 hours. Patient was in [facility] for subdural hemorrhage associated with meningioma in the left frontal lobe. Patient underwent left frontal craniotomy and was discharged on 08/13 on seizure precaution medication and pain medication. Patient's daughter is an RN who checked her oxygen at home which was saturating at 38%. Patient was brought to the hospital by EMS as patient was found unresponsive with her oxygen in the 40s and was placed on a BiPAP. Patient is unable to provide any history as she Is confused. Called patient's who stated that patient was doing well post discharge until last night when she became short of breath and confused. Patient did have acute stroke from the subdural hemorrhage causing right arm and right leg weakness associated with a phase ER. Patient was in the hospital for 6 weeks and recovered from both right upper and lower extremity weakness and a phasia. Patient was smoking at home post discharge. She was evaluated by her daughter who is an RN who insisted on calling EMS as she did not appear well.On evaluation in the ER patient was found to have bilateral groundglass opacities concerning for call with pneumonia. Vital suggested temp of 97.9 pulse 81 blood pressure 122/78 respiratory rate of 20. Call with 19 was positive. WBC 5.8 hemoglobin 10.4. ABG was obtained with a pO2 of 55 pCO2 of 44 . Patient's sodium is 146 chloride 117 BUN 48 creatinine 1.01 glucose 110 AST 74 8079 magnesium 2.5 proBNP 1560 LDH 2556 troponin negative 1 CRP 220. INR is elevated at 2.6. Pulmonary consult was placed. Patient placed on Solu-Medrol 60 every 6, zinc sulfide 220 vitamin C 1000 mg daily. EKG was normal sinus rhythm with no ST or segment depression or elevation. Review of Systems Could not be obtained due to patient's confusion Past Medical History Past Medical History: Asthma, Coronary Artery Disease (CAD), Deep Vein Thrombosis (DVT), Fibromyalgia, GERD/Reflux, Hyperlipidemia, Hypertension, Osteoarthritis (OA), Pneumonia, Thyroid Disorder Additional Past Medical History / Comment(s): "osteopenia, renal insufficiency, back pain chronic per patient" History of Any Multi-Drug Resistant Organisms: None Reported Past Surgical History: Appendectomy, Cholecystectomy, Hysterectomy, Joint Replacement Additional Past Surgical History / Comment(s): TOTAL RIGHT AND LEFT HIP, TOTAL RIGHT AND LEFT KNEE, BILATERAL FOOT SURGERY, BILATERAL HAND SURGERY-JOINT REPLACEMENT, [place] filter placement, left wrist tendon repair, posterior lateral decompression and fusion of the lumbar spine Past Anesthesia/Blood Transfusion Reactions: No Reported Reaction Past Psychological History: No Psychological Hx Reported Smoking Status: Current every day smoker Past Alcohol Use History: Occasional Past Drug Use History: Marijuana - Past Family History Father Family Medical History: Congestive Heart Failure (CHF) Additional Family Medical History / Comment(s): Father is alive at age 85 currently at the hospice home with history of mesothelioma Mother Family Medical History: Cancer, Deep Vein Thrombosis (DVT) Additional Family Medical History / Comment(s): Mother is alive at age 85 currently at the hospice home with history of dementia and GI cancer. Sister(s) Family Medical History: Cancer Additional Family Medical History / Comment(s): Patient has 3 sisters and 3 brothers. Daughter(s) Additional Family Medical History / Comment(s): Patient is 3 daughters and one has history of arrhythmia. Patient has 2 sons with no major medical problems. Medications and Allergies Home Medications Medication Instructions Recorded Confirmed Type Warfarin [Coumadin] 2.5 mg PO HS 07/27/14 08/16/20 History Cholecalciferol [Vitamin D3 (25 1,000 unit PO QAM 12/28/15 08/16/20 History Mcg = 1000 Iu)] Docusate [Colace] 100 mg PO DAILY 12/28/15 08/16/20 History Famotidine [Pepcid] 20 mg PO DAILY 12/28/15 08/16/20 History Pravastatin Sodium [Pravachol] 10 mg PO HS 12/28/15 08/16/20 History Pregabalin [Lyrica] 150 mg PO BID 12/28/15 08/16/20 History Venlafaxine HCl ER [Effexor XR] 150 mg PO DAILY 12/28/15 08/16/20 History amLODIPine BESYLATE [Norvasc] 5 mg PO BID 07/27/17 08/16/20 History Albuterol Inhaler [Ventolin Hfa 1 puff INHALATION RT-Q6H PRN 08/16/20 08/16/20 History Inhaler] Bisacodyl 10 mg PO DAILY 08/16/20 08/16/20 History Carvedilol [Coreg] 25 mg PO BID 08/16/20 08/16/20 History Fluticasone/Vilanterol [Breo 1 puff INHALATION RT-DAILY 08/16/20 08/16/20 History Ellipta 100-25 Mcg Inhaler] HYDROcodone/APAP 5-325MG [Carlton 1 - 2 tab PO Q4HR PRN 08/16/20 08/16/20 History 5-325] Levothyroxine Sodium [Synthroid] 37.5 mcg PO DAILY 08/16/20 08/16/20 History Miconazole Nitrate [Desenex] 1 applic TOPICAL BID 08/16/20 08/16/20 History dexAMETHasone [Dexamethasone] 2 mg PO BID 08/16/20 08/16/20 History hydrALAZINE HCL [Apresoline] 100 mg PO TID 08/16/20 08/16/20 History levETIRAcetam [Keppra] 500 mg PO Q12HR 08/16/20 08/16/20 History Allergies Allergy/AdvReac Type Severity Reaction Status Date / Time erythromycin lactobionate Allergy RASH,VOMITI Verified 08/16/20 11:46 [From Erythrocin] NG influenza virus vaccine, Allergy LOW WHITE Verified 08/16/20 11:46 specific COUNT,INFLAMED [influenza virus LIVER vacc,specific] morphine Allergy Nausea & Verified 08/16/20 11:46 Vomiting shellfish derived [Shellfish] Allergy Swelling Verified 08/16/20 11:46 of tongue,rash iodine AdvReac Anaphylaxis Verified 08/16/20 11:46 Physical Exam Vitals: Vital Signs Temp Pulse Pulse Resp BP BP Pulse Ox 08/16/20 14:18 97.8 F 80 20 165/71 97 08/16/20 14:00 20 08/16/20 13:30 97.9 F 82 20 141/72 97 08/16/20 12:00 81 16 122/78 100 08/16/20 11:15 97.5 F L 87 17 129/76 100 08/16/20 10:08 97.7 F 92 22 133/62 86 L Intake and Output 08/16/20 08/16/20 08/16/20 06:59 14:59 22:59 Other: Weight 113.398 kg - Constitutional General appearance: cooperative, mild to moderate distress, obese - EENT Eyes: anicteric sclerae, PERRLA, normal appearance ENT: hearing grossly normal - Neck Neck: no lymphadenopathy, normal ROM, no other, no rigidity, no stridor, no thyromegaly - Respiratory Respiratory: bilateral: Decreased air entry with crackles at the bases - Cardiovascular Rhythm: regular Heart sounds: normal: S1, S2 Abnormal Heart Sounds: 3/6 systolic murmur, no diastolic murmur, no rub, no S3 Gallop, no S4 Gallop, no click, no other - Gastrointestinal General gastrointestinal: normal bowel sounds, soft, nontender - Integumentary Integumentary: no rash - Neurologic Neurologic: CNII-XII intact - Musculoskeletal Musculoskeletal: V in all extremities - Psychiatric Psychiatric: A& continues to repeat one word again and again, oriented 1, ap propriate affect Results CBC & Chem 7: 08/16/20 10:16 08/16/20 10:16 Labs: Abnormal Lab Results - Last 24 Hours (Table) 08/16/20 08/16/20 08/16/20 Range/Units 10:16 10:16 10:16 RBC 3.02 L (3.80-5.40) m/uL Hgb 10.4 L D (11.4-16.0) gm/dL Hct 31.0 L (34.0-46.0) % MCV 102.7 H (80.0-100.0) fL RDW 16.1 H (11.5-15.5) % Lymphocytes # 0.7 L (1.0-4.8) k/uL PT 25.8 H (9.0-12.0) sec INR 2.6 H (<1.2) APTT 50.0 H (22.0-30.0) sec ABG pO2 (83-108) mmHg ABG Total CO2 (19-24) mmol/L ABG O2 Saturation (94-97) % Sodium 146 H (137-145) mmol/L Chloride 117 H (98-107) mmol/L BUN 48 H (7-17) mg/dL Glucose 110 H (74-99) mg/dL POC Glucose (mg/dL) (75-99) mg/dL Magnesium 2.5 H (1.6-2.3) mg/dL AST 74 H (14-36) U/L ALT 79 H (4-34) U/L Lactate Dehydrogenase 2556 H (313-618) U/L C-Reactive Protein 220.6 H (<10.0) mg/L Total Protein 5.9 L (6.3-8.2) g/dL Albumin 3.2 L (3.5-5.0) g/dL Coronavirus (PCR) (Not Detectd) 08/16/20 08/16/20 08/16/20 Range/Units 10:22 10:44 14:55 RBC (3.80-5.40) m/uL Hgb (11.4-16.0) gm/dL Hct (34.0-46.0) % MCV (80.0-100.0) fL RDW (11.5-15.5) % Lymphocytes # (1.0-4.8) k/uL PT (9.0-12.0) sec INR (<1.2) APTT (22.0-30.0) sec ABG pO2 55 L* (83-108) mmHg ABG Total CO2 26 H (19-24) mmol/L ABG O2 Saturation 87.8 L (94-97) % Sodium (137-145) mmol/L Chloride (98-107) mmol/L BUN (7-17) mg/dL Glucose (74-99) mg/dL POC Glucose (mg/dL) 110 H (75-99) mg/dL Magnesium (1.6-2.3) mg/dL AST (14-36) U/L ALT (4-34) U/L Lactate Dehydrogenase (313-618) U/L C-Reactive Protein (<10.0) mg/L Total Protein (6.3-8.2) g/dL Albumin (3.5-5.0) g/dL Coronavirus (PCR) Detected A (Not Detectd) Thrombosis Risk Factor Assmnt - DVT/VTE Prophylaxis DVT/VTE Prophylaxis: Pharmacologic Prophylaxis ordered Assessment and Plan Plan: #1 acute hypoxic respiratory failure secondary to covid pneumonia with underlying COPD exacerbation. Continue Solu-Medrol 60 IV every 6. Patient transferred to the ICU for stabilization. Pulmonary consult placed bronchodilators per pulmonary recommendations. Patient would benefit from anticoag and remdesiver, zinc and vitamin C and .D. #2 acute hemorrhagic stroke with acute left subdural hemorrhage with benign tumor status post left frontal craniotomy. Recently discharged on 08/13 from [facility]. Was on dexamethasone 2 mg twice a day switch to Solu-Medrol for acute Covid pneumonia. Continue Keppra 500 by mouth every 12. #3 acute metabolic encephalopathy likely secondary to COVID 19. Other possibility includes new prescription for Carlton and Keppra. We will hold Carlton and watch for improvement. CT head suggestive of postsurgical changes with mild diffuse age-related cerebral atrophy and mild to moderate chronic small vessel ischemic changes. No acute intracranial hemorrhage noted. #4 history of pulmonary embolism and DVT continue Coumadin currently therapeutic. #5 coronary artery disease continue Coreg 25 twice a day, pravastatin 10 mg daily at bedtime #6 hypertension continue Norvasc 5 mg twice a day, Coreg 25 twice a day, hydralazine 100 3 times a day #7 low back pain stable. Hold lyrica, and Carlton #8 hypothyroidism continue levothyroxine 37.5 g by mouth daily # 9 Hyperlipidemia continue pravastatin 10 mg by mouth daily #10 Depression venlafaxine 150 mg po daily #11 CODE STATUS full code #12 detailed discussion with the was done. Patient is full code including intubation and resuscitation if needed. Family will change with status based on patient's prognosis and recovery
--- NOTE | 2020-08-16 18:13 | CONS ---
CONSULTATION PULMONARY/CRITICAL CARE CONSULTATION: August 16, 2020 REASON FOR CONSULTATION: COVID-19 pneumonitis, acute hypoxemic respiratory failure, shortness of breath. HISTORY OF PRESENT ILLNESS: This 64-year-old female who apparently presented to the emergency department for shortness of breath. The patient had a recent craniotomy for meningioma at an outside hospital. The patient apparently was profoundly short of breath over the last 3 or 4 days. She states that the breathing continued to get worse and for that reason, she wanted to be evaluated. She apparently was confused and her saturations were quite low when the EMS arrived at the house. Apparently her saturations were below 60%. Anyway, she apparently told the ER doctor she thought it was 1949 as opposed to 2020. She denies currently any pain. She is not coughing or bringing up any phlegm. No fever, chills. She just feels that her breathing is off. Apparently, according to the ER obinna, her saturations were actually in the 40s and she was somewhat unresponsive. Currently, she is on the floor. She was admitted to the floor from the ER. She is on BiPAP at 12/5 and FiO2 of 100%. She is awake and alert. Her saturations are good. Her chest x-ray is off, although and we are concerned that the patient may deteriorate, so we decided to move the patient to the intensive care unit for further monitoring. Home medications include aspirin, Coumadin, oxycodone, albuterol inhaler, Artificial Tears, Evoxac, vitamin D3, Colace, Pepcid, Synthroid, Prinivil, Singulair, Pravachol, Lyrica, Effexor XR, Symbicort, updrafts, with Xopenex and Atrovent, metoprolol and amlodipine. She also apparently was placed on a nicotine patch and Valium. ALLERGIES: INCLUDE ERYTHROMYCIN, INFLUENZA VACCINE, MORPHINE, AND SHELLFISH. MEDICAL HISTORY: COPD from heavy tobacco use. Actually she quit she tells us 3 weeks ago. She also has a history of CAD, deep venous thrombosis, fibromyalgia, GERD, hyperlipidemia, hypertension, DJD, pneumonia, and hypothyroidism. In addition, she apparently had a recent craniotomy for meningioma. Other medical problems include chronic back pain. SURGICAL HISTORY: Includes appendectomy, cholecystectomy, hysterectomy, total right and left hip replacement, total right and left knee replacement, bilateral foot surgery, bilateral hand surgery, Marissa filter placement, left wrist tendon repair, and lumbar decompression and fusion of the lumbar spine. In addition, her history is positive for recent craniotomy for meningioma. SOCIAL HISTORY: Positive for many years of tobacco use. She has been smoking probably for 50 years or so. She states she quit 3 weeks ago. She apparently drinks alcohol occasionally and also uses marijuana. FAMILY HISTORY: Positive for congestive heart failure. Her father who also apparently had mesothelioma and mother with a history of gastrointestinal cancer, dementia, deep venous thrombosis. She has a sister with cancer and a daughter with history of cardiac arrhythmia. REVIEW OF SYSTEMS: CONSTITUTIONAL negative. NEUROLOGIC confusion. HEENT negative. CARDIOVASCULAR negative. PULMONARY: Shortness of breath, minimal cough. GI negative. negative. RHEUMATOLOGIC negative. IMMUNOLOGIC negative. ENDOCRINOLOGIC negative. DERMATOLOGIC negative. PHYSICAL EXAMINATION: VITAL SIGNS: Vital signs reviewed. Temperature 97.5. Heart rate 81, respiratory rate 20. Blood pressure 122/78, mean 92. Saturations are 100% on BiPAP at 12/5 and 100%. GENERAL: She is awake and alert. Seems to be pretty with it at this time. HEENT: Examination is grossly unremarkable. BiPAP mask in place. NECK: Supple. Full range of motion. No adenopathy. Neck veins are flat. CARDIOVASCULAR: Examination reveals regular rhythm and rate. Heart rate 81. Heart sounds distant. LUNGS: Reveal diffuse coarse rhonchi. Breath sounds equal. No wheezes or crackles. ABDOMEN: Obese. Bowel sounds are heard. EXTREMITIES: Reveal no edema. SKIN: Without rash. NEUROLOGIC: Examination is brief but nonfocal. LABS: Reviewed. White count 5.8, hemoglobin 10.4, hematocrit 31, platelet count 162,000. PT/INR were 25.8 and 2.6. PTT is 50. D-dimer 0.52. Blood gases show pO2 of 55, a pCO2 of 44, and pH of 7.35. These blood gases are consistent with hypoxemia and a mild respiratory acidosis. Sodium 146, potassium 4.8, chloride 117, CO2 27, anion gap is 2, BUN and creatinine were 48 and 1.01, glucose 110, magnesium 2.5, AST 74, ALT 79, LDH 2556. Troponin 0.021. C-reactive protein 221. N terminal proBNP 50 160. Covid testing was positive. Microbiology is pending or negative. Chest x-ray shows diffuse bilateral infiltrates with consolidation. Brain CT shows interval surgical decompression with evidence of age-related cerebral atrophy and mild to moderate small-vessel ischemic changes. CURRENT MEDICATIONS: Reviewed. The patient is on vitamin C, vitamin D3, famotidine, melatonin, and zinc. The patient is also on Solu-Medrol 60 mg q.6 hours. ASSESSMENT: 1. Acute hypoxemic respiratory failure secondary to acute COVID-19 pneumonitis/pneumonia. 2. Recent craniotomy for subdural hematoma. 3. Probable underlying chronic obstructive pulmonary disease from heavy tobacco use. 4. History of coronary artery disease. 5. Deep vein thrombosis. 6. Fibromyalgia. 7. Gastroesophageal reflux disease. 8. Hyperlipidemia. 9. Hypertension. 10.Osteoarthritis. 11.History of pneumonia. 12.Hypothyroidism. 13.Osteopenia. 14.Chronic back pain. 15.Multiple orthopedic procedures. PLAN: The patient will be moved to the ICU. She has acute hypoxemic respiratory failure secondary to acute COVID-19 pneumonitis. She also had a recent craniotomy for a left frontal subdural hematoma. It was done at an outside hospital I suspect. The patient will be started on vitamin C, vitamin D3, and zinc. In addition, we will give her melatonin and Pepcid as well as high-dose corticosteroids in the form of Solu-Medrol 60 mg q.6h. Because of her high FiO2 requirements, she is not a candidate for Remdesivir. We may even consider convalescent plasma should she not show any improvement. Additional recommendations and suggestions are forthcoming. Prognosis is guarded. The patient is at high risk for deterioration. MMODL / IJN: [id number] /
[2020-08-16 18:17] LABS: Glucose,Whole Blood 119 mg/dL (75-99)
[2020-08-16] MEDS: INSULIN ASPART (NovoLOG) 100 UNIT/ML VIAL SQ SCH (18:18)
[2020-08-16] MEDS: methylPREDNISolone SOD SUCCI 125 MG/2 ML VIAL IV SCH (18:23)
[2020-08-16] MEDS: carvediloL 12.5 MG TAB PO SCH (18:23)
[2020-08-16] MEDS ORDERED: WARFARIN 2.5 MG TAB PO SCH (21:00)
[2020-08-16] MEDS ORDERED: PRAVASTATIN SODIUM 20 MG TAB PO SCH (21:00)
[2020-08-16] MEDS ORDERED: PREGABALIN 50 MG CAP PO SCH (21:00)
[2020-08-16] MEDS: amLODIPine 5 MG TAB PO SCH (21:27)
[2020-08-16] MEDS: MELATONIN 5 MG TABLET PO SCH (21:27)
[2020-08-16] MEDS: FAMOTIDINE 20 MG TAB PO SCH (21:27)
[2020-08-16] MEDS: levETIRAcetam 500 MG TAB PO SCH (21:28)
[2020-08-17 00:02] LABS: Glucose,Whole Blood 145 mg/dL (75-99)
[2020-08-17] MEDS: methylPREDNISolone SOD SUCCI 125 MG/2 ML VIAL IV SCH ×5 (00:22→23:57)
[2020-08-17] MEDS: INSULIN ASPART (NovoLOG) 100 UNIT/ML VIAL SQ SCH ×5 (00:22→23:54)
[2020-08-17 05:29] LABS: Hypochromasia Slight; MCH 33.1 pg (25.0-35.0); MCHC 31.9 g/dL (31.0-37.0); MCV 103.7 fL (80.0-100.0); Macrocytosis Moderate; Mean Platelet Volume 7.6; Platelet Count 188 k/uL (150-450); RBC 2.41 m/uL (3.80-5.40); RDW 15.8 % (11.5-15.5); WBC 8.1 k/uL (3.8-10.6)
[2020-08-17 05:42] LABS: D-Dimer 0.97 mg/L FEU (<0.60); INR 1.8 (<1.2); Partial Thromboplastin Time 36.6 sec (22.0-30.0); Prothrombin Time 17.6 sec (9.0-12.0)
[2020-08-17 05:54] LABS: Glucose,Whole Blood 140 mg/dL (75-99)
[2020-08-17 05:56] LABS: Albumin 3.4 g/dL (3.5-5.0); Calcium 9.3 mg/dL (8.4-10.2); Magnesium 2.5 mg/dL (1.6-2.3); Potassium 4.7 mmol/L (3.5-5.1); Total Bilirubin 0.3 mg/dL (0.2-1.3); Total Protein 6.2 g/dL (6.3-8.2)
[2020-08-17 06:12] LABS: C Reactive Protein 190.8 mg/L (<10.0)
[2020-08-17] MEDS ORDERED: LEVOTHYROXINE 75 MCG TAB PO SCH (06:30)
[2020-08-17] MEDS: carvediloL 12.5 MG TAB PO SCH (06:37)
--- NOTE | 2020-08-17 07:08 | XR ---
EXAMINATION TYPE: XR chest 1V portable DATE OF EXAM: 08/17/2020 CLINICAL HISTORY: Difficulty breathing progress study. TECHNIQUE: Single AP portable semiupright view of the chest is obtained. COMPARISON: Chest x-ray from one day earlier and older studies FINDINGS: Multifocal bilateral opacities remain present. The cardiac silhouette size is stable and e nlarged. The osseous structures are intact. Overlying EKG leads noted. IMPRESSION: Cardiomegaly with bilateral multifocal acute infiltrates consistent with product of covi d 19 infection. No significant change from prior.
[2020-08-17] MEDS ORDERED: FAMOTIDINE 20 MG TAB PO SCH (09:00)
[2020-08-17] MEDS ORDERED: dexAMETHasone 2 MG TAB PO SCH (09:00)
[2020-08-17] MEDS ORDERED: CHOLECALCIFEROL 1,000 UNIT TAB PO SCH (09:00)
[2020-08-17] MEDS ORDERED: bisacodyL 5 MG TABLET.DR PO SCH (09:00)
[2020-08-17 09:52] LABS: ABG Base Excess 0.9 mmol/L; ABG HCO3 26 mmol/L (21-25); ABG Oxygen Saturation 95.4 % (94-97); ABG PCO2 46 mmHg (35-45); ABG PH 7.37 (7.35-7.45); ABG PO2 71 mmHg (83-108); ABG TCO2 28 mmol/L (19-24); Allen Test Performed? Yes
[2020-08-17] MEDS: ASCORBIC ACID 500 MG TAB PO SCH (10:12)
[2020-08-17] MEDS: CHOLECALCIFEROL 1,000 UNIT TAB PO SCH (10:12)
[2020-08-17] MEDS: DOCUSATE 100 MG CAP PO SCH (10:12)
[2020-08-17] MEDS: ZINC SULFATE 220 MG CAP PO SCH (10:12)
[2020-08-17] MEDS ORDERED: METOPROLOL TARTRATE 5 MG/5 ML VIAL IVP PRN (10:17)
[2020-08-17] MEDS: VENLAFAXINE HCL ER 150 MG CAP PO SCH (10:32)
[2020-08-17] MEDS: levETIRAcetam IV 500 MG in SODIUM CHLORIDE 0.9% 100 ML IVPB SCH ×2 (10:33→21:02)
[2020-08-17] MEDS: FAMOTIDINE 20 MG/2 ML VIAL IV SCH ×2 (10:33→21:02)
--- NOTE | 2020-08-17 10:36 | P.PN ---
Subjective Progress Note Date: 08/17/20 Principal diagnosis: Chief complaint acute shortness of breath, change in mental status, COVID 19 pneumonia Ms. Sutherland is a 64 years old female patient of Dr. Siu with past medical history of coronary artery disease, hypertension, history of DVT and pulmonary embolism in 2002, fibromyalgia, asthma who presented to the hospital with worsening shortness of breath associated with change in mental status for the past 24 hours. Patient was in [facility] for subdural hemorrhage associated with meningioma in the left frontal lobe. Patient underwent left frontal craniotomy and was discharged on 08/13 on seizure precaution medication and pain medication. Patient's daughter is an RN who checked her oxygen at home which was saturating at 38%. Patient was brought to the hospital by EMS as patient was found unresponsive with her oxygen in the 40s and was placed on a BiPAP. Patient is unable to provide any history as she Is confused. Called patient's who stated that patient was doing well post discharge until last night when she became short of breath and confused. Patient did have acute stroke from the subdural hemorrhage causing right arm and right leg weakness associated with a phase ER. Patient was in the hospital for 6 weeks and recover ed from both right upper and lower extremity weakness and a phasia. Patient was smoking at home post discharge. She was evaluated by her daughter who is an RN who insisted on calling EMS as she did not appear well.On evaluation in the ER patient was found to have bilateral groundglass opacities concerning for call with pneumonia. Vital suggested temp of 97.9 pulse 81 blood pressure 122/78 respiratory rate of 20. Call with 19 was positive. WBC 5.8 hemoglobin 10.4. ABG was obtained with a pO2 of 55 pCO2 of 44 . Patient's sodium is 146 chloride 117 BUN 48 creatinine 1.01 glucose 110 AST 74 8079 magnesium 2.5 proBNP 1560 LDH 2556 troponin negative 1 CRP 220. INR is elevated at 2.6. Pulmonary consult was placed. Patient placed on Solu-Medrol 60 every 6, zinc sulfide 220 vitamin C 1000 mg daily. EKG was normal sinus rhythm with no ST or segment depression or elevation. 1/3 patient assessed in ICU currently on BiPAP. Patient is oriented 2. Patient was not able to tolerate being off BiPAP for even a few minutes to take her medications. Patient is currently on 100% FiO2 on BiPAP saturating at 91- 92% vitals otherwise stable temp of 98.8 pulse 75 respiratory rate 27 blood p ressure 129/53. Patient has a drop of hemoglobin from 10.4-8 today with MCV 103. INR is 1.8 subtherapeutic, elevated APTT 50 in origin and d-dimer 0.97. PCO2 is 46 pO2 71 bicarb 28 with a pH of 7.37, sodium 146 chloride 1:15, BUN 48 creatinine 0.87 glucose 125. Alkaline phosphatase has increased to 215 from 1:15, AST increased from 7 to 151 ALT increased from 79 to 201. Ultrasound abdomen ordered to evaluate for liver and gallbladder. 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 Patient is unable to take oral medication will switch patient's medication to IV today ROS Could not be obtained due to mental status Objective - Vital Signs Vital signs: Vital Signs Temp 98.8 F 08/17/20 08:00 Pulse 73 08/17/20 10:00 Resp 18 08/17/20 10:00 BP 118/52 08/17/20 10:00 Pulse Ox 98 08/17/20 10:00 Intake & Output 08/16/20 08/17/20 08/17/20 18:59 06:59 18:59 Intake Total 200 592 Output Total 280 615 250 Balance -80 -23 -250 Weight 113.398 kg 103.6 kg Intake: Blood Product 200 592 Ffp Convalescent Plasma 283 Cpd Unit [id number] Ffp Convalescent Plasma 0 309 Cpd Unit [id number] Output: Urine 280 615 250 Other: Voiding Method Indwelling Catheter Indwelling Catheter Indwelling Catheter - Exam - Constitutional General appearance: cooperative, mild distress on BiPAP, obese - EENT Eyes: anicteric sclerae, PERRLA, normal appearance ENT: hearing grossly normal - Neck Neck: no lymphadenopathy, normal ROM, no other, no rigidity, no stridor, no thyromegaly - Respiratory Respiratory: Decreased air entry bilaterally with crackles at the bases - Cardiovascular Rhythm: regular Heart sounds: normal: S1, S2 Abnormal Heart Sounds: 3/6 systolic murmur, no diastolic murmur, no rub, no S3 Gallop, no S4 Gallop, no click, no other - Gastrointestinal General gastrointestinal: normal bowel sounds, soft nontender - Integumentary Integumentary: no rash - Neurologic Neurologic: CNII-XII intact no motor deficit but appears to be generally follows commands - Musculoskeletal Musculoskeletal: gait not assessed strength equal bilaterally - Psychiatric Psychiatric: A&O x's 2, appropriate affect - Labs CBC & Chem 7: 08/17/20 05:12 08/17/20 05:12 Labs: Abnormal Lab Results - Last 24 Hours (Table) 08/16/20 08/16/20 08/16/20 Range/Units 10:16 10:16 10:16 RBC 3.02 L (3.80-5.40) m/uL Hgb 10.4 L D (11.4-16.0) gm/dL Hct 31.0 L (34.0-46.0) % MCV 102.7 H (80.0-100.0) fL RDW 16.1 H (11.5-15.5) % Lymphocytes # 0.7 L (1.0-4.8) k/uL PT 25.8 H (9.0-12.0) sec INR 2.6 H (<1.2) APTT 50.0 H (22.0-30.0) sec Fibrinogen (200-500) mg/dL D-Dimer (<0.60) mg/L FEU ABG pCO2 (35-45) mmHg ABG pO2 (83-108) mmHg ABG HCO3 (21-25) mmol/L ABG Total CO2 (19-24) mmol/L ABG O2 Saturation (94-97) % Sodium 146 H (137-145) mmol/L Chloride 117 H (98-107) mmol/L BUN 48 H (7-17) mg/dL Glucose 110 H (74-99) mg/dL POC Glucose (mg/dL) (75-99) mg/dL Magnesium 2.5 H (1.6-2.3) mg/dL Ferritin 3653.0 H (10.0-291.0) ng/mL AST 74 H (14-36) U/L ALT 79 H (4-34) U/L Alkaline Phosphatase (38-126) U/L Lactate Dehydrogenase 2556 H (313-618) U/L Creatine Kinase (30-135) U/L C-Reactive Protein 220.6 H (<10.0) mg/L Total Protein 5.9 L (6.3-8.2) g/dL Albumin 3.2 L (3.5-5.0) g/dL Procalcitonin (0.02-0.09) ng/mL Coronavirus (PCR) (Not Detectd) 08/16/20 08/16/20 08/16/20 Range/Units 10:16 10:22 10:44 RBC (3.80-5.40) m/uL Hgb (11.4-16.0) gm/dL Hct (34.0-46.0) % MCV (80.0-100.0) fL RDW (11.5-15.5) % Lymphocytes # (1.0-4.8) k/uL PT (9.0-12.0) sec INR (<1.2) APTT (22.0-30.0) sec Fibrinogen (200-500) mg/dL D-Dimer (<0.60) mg/L FEU ABG pCO2 (35-45) mmHg ABG pO2 55 L* (83-108) mmHg ABG HCO3 (21-25) mmol/L ABG Total CO2 26 H (19-24) mmol/L ABG O2 Saturation 87.8 L (94-97) % Sodium (137-145) mmol/L Chloride (98-107) mmol/L BUN (7-17) mg/dL Glucose (74-99) mg/dL POC Glucose (mg/dL) (75-99) mg/dL Magnesium (1.6-2.3) mg/dL Ferritin (10.0-291.0) ng/mL AST (14-36) U/L ALT (4-34) U/L Alkaline Phosphatase (38-126) U/L Lactate Dehydrogenase (313-618) U/L Creatine Kinase (30-135) U/L C-Reactive Protein (<10.0) mg/L Total Protein (6.3-8.2) g/dL Albumin (3.5-5.0) g/dL Procalcitonin 0.34 H (0.02-0.09) ng/mL Coronavirus (PCR) Detected A (Not Detectd) 08/16/20 08/16/20 08/17/20 Range/Units 14:55 18:15 00:01 RBC (3.80-5.40) m/uL Hgb (11.4-16.0) gm/dL Hct (34.0-46.0) % MCV (80.0-100.0) fL RDW (11.5-15.5) % Lymphocytes # (1.0-4.8) k/uL PT (9.0-12.0) sec INR (<1.2) APTT (22.0-30.0) sec Fibrinogen (200-500) mg/dL D-Dimer (<0.60) mg/L FEU ABG pCO2 (35-45) mmHg ABG pO2 (83-108) mmHg ABG HCO3 (21-25) mmol/L ABG Total CO2 (19-24) mmol/L ABG O2 Saturation (94-97) % Sodium (137-145) mmol/L Chloride (98-107) mmol/L BUN (7-17) mg/dL Glucose (74-99) mg/dL POC Glucose (mg/dL) 110 H 119 H 145 H (75-99) mg/dL Magnesium (1.6-2.3) mg/dL Ferritin (10.0-291.0) ng/mL AST (14-36) U/L ALT (4-34) U/L Alkaline Phosphatase (38-126) U/L Lactate Dehydrogenase (313-618) U/L Creatine Kinase (30-135) U/L C-Reactive Protein (<10.0) mg/L Total Protein (6.3-8.2) g/dL Albumin (3.5-5.0) g/dL Procalcitonin (0.02-0.09) ng/mL Coronavirus (PCR) (Not Detectd) 08/17/20 08/17/20 08/17/20 Range/Units 05:12 05:12 05:12 RBC 2.41 L (3.80-5.40) m/uL Hgb 8.0 L D (11.4-16.0) gm/dL Hct 25.0 L (34.0-46.0) % MCV 103.7 H (80.0-100.0) fL RDW 15.8 H (11.5-15.5) % Lymphocytes # (1.0-4.8) k/uL PT 17.6 H (9.0-12.0) sec INR 1.8 H (<1.2) APTT 36.6 H (22.0-30.0) sec Fibrinogen 655 H (200-500) mg/dL D-Dimer 0.97 H (<0.60) mg/L FEU ABG pCO2 (35-45) mmHg ABG pO2 (83-108) mmHg ABG HCO3 (21-25) mmol/L ABG Total CO2 (19-24) mmol/L ABG O2 Saturation (94-97) % Sodium 146 H (137-145) mmol/L Chloride 115 H (98-107) mmol/L BUN 48 H (7-17) mg/dL Glucose 125 H (74-99) mg/dL POC Glucose (mg/dL) (75-99) mg/dL Magnesium 2.5 H (1.6-2.3) mg/dL Ferritin (10.0-291.0) ng/mL AST 151 H (14-36) U/L ALT 201 H (4-34) U/L Alkaline Phosphatase 208 H (38-126) U/L Lactate Dehydrogenase 2805 H (313-618) U/L Creatine Kinase 25 L (30-135) U/L C-Reactive Protein 190.8 H (<10.0) mg/L Total Protein 6.2 L (6.3-8.2) g/dL Albumin 3.4 L (3.5-5.0) g/dL Procalcitonin (0.02-0.09) ng/mL Coronavirus (PCR) (Not Detectd) 08/17/20 08/17/20 Range/Units 05:42 09:48 RBC (3.80-5.40) m/uL Hgb (11.4-16.0) gm/dL Hct (34.0-46.0) % MCV (80.0-100.0) fL RDW (11.5-15.5) % Lymphocytes # (1.0-4.8) k/uL PT (9.0-12.0) sec INR (<1.2) APTT (22.0-30.0) sec Fibrinogen (200-500) mg/dL D-Dimer (<0.60) mg/L FEU ABG pCO2 46 H (35-45) mmHg ABG pO2 71 L (83-108) mmHg ABG HCO3 26 H (21-25) mmol/L ABG Total CO2 28 H (19-24) mmol/L ABG O2 Saturation (94-97) % Sodium (137-145) mmol/L Chloride (98-107) mmol/L BUN (7-17) mg/dL Glucose (74-99) mg/dL POC Glucose (mg/dL) 140 H (75-99) mg/dL Magnesium (1.6-2.3) mg/dL Ferritin (10.0-291.0) ng/mL AST (14-36) U/L ALT (4-34) U/L Alkaline Phosphatase (38-126) U/L Lactate Dehydrogenase (313-618) U/L Creatine Kinase (30-135) U/L C-Reactive Protein (<10.0) mg/L Total Protein (6.3-8.2) g/dL Albumin (3.5-5.0) g/dL Procalcitonin (0.02-0.09) ng/mL Coronavirus (PCR) (Not Detectd) Assessment and Plan Plan: #1 acute hypoxic respiratory failure secondary to covid pneumonia with underlying COPD exacerbation. Continue Solu-Medrol 60 IV every 6. Patient transferred to the ICU for stabilization. Pulmonary consult placed bronchodi lators per pulmonary recommendations. Patient would benefit from anticoag. Patient initiated on heparin drip , zinc and vitamin C and .D. Remdesivir not indicated due to high FiO2 #2 acute hemorrhagic stroke with acute left subdural hemorrhage with benign tumor status post left frontal craniotomy. Recently discharged on 08/13 from [facility]. Was on dexamethasone 2 mg twice a day switch to Solu-Medrol for acute Covid pneumonia. Continue Keppra 500 by mouth every 12. Switch to IV as patient is unable to take oral medication #3 acute metabolic encephalopathy likely secondary to COVID 19. Other possibility includes new prescription for [place] and Keppra. Rule out central diabetes insipidus We will hold [place] and watch for improvement. CT head suggestive of postsurgical changes with mild diffuse age-related cerebral atrophy and mild to moderate chronic small vessel ischemic changes. No acute intracranial hemorrhage noted. Positive consult #4 history of pulmonary embolism and DVT hold Coumadin was started on heparin drip #5 coronary artery disease continue Coreg 25 twice a day, pravastatin 10 mg daily at bedtime #6 hypertension hold Norvasc, Coreg and hydralazine switch to metoprolol and hydralazine IV push every 6 hours for high blood pressure #7 low back pain stable. Hold lyrica, and [place] #8 hypothyroidism hold levothyroxine 37.5 g by mouth daily # 9 Hyperlipidemia hold pravastatin 10 mg by mouth daily #10 Depression venlafaxine 150 mg po daily #11 hypernatremia likely central diabetes insipidus for recent history of craniotomy. Urine sodium, urine osmolality and serum osmolality ordered. Neurology consulted #11 CODE STATUS full code #12 detailed discussion with the was done. Patient is full code including intubation and resuscitation if needed. Family will change with status based on patient's prognosis and recovery
[2020-08-17 11:09] LABS: Glucose,Whole Blood 137 mg/dL (75-99)
--- NOTE | 2020-08-17 11:22 | US ---
EXAMINATION TYPE: US abdomen complete DATE OF EXAM: 08/17/2020 COMPARISON: NONE CLINICAL HISTORY: transaminitis. ICU Patient and her RN stated she had cholecystectomy, COVID patient , large body habitus at 228lbs,Ht 5'2". EXAM MEASUREMENTS: Liver Length: 17.3 cm Gallbladder Wall: surgically removed after confirmation from patient's RN CBD: 0.65 cm post cholecystectomy Spleen: 10.3 cm Right Kidney: 11.2 x 6.8 x 6.6 cm Left Kidney: 13.1 x 7.6 x 6.4 cm Pancreas: hyperechoic Liver: increased echogenicity and attenuated posteriorly suggests fatty liver Gallbladder: surgically removed Evidence for sonographic Garcia's sign: patient c/o overall body pain with probe pressure CBD: wnl post Spleen: wnl Right Kidney: thin renal cortex, mid cortical cyt = 1.7 x 1.8 x 1.2cm Left Kidney: thinner cortex of cysts mid lower pole = 7.1 x 7.6 x 6.1cm Upper IVC: wnl Abd Aorta: upper aorta size wnl with wall thickening noted here;mid and distal aorta obscured by ove rlying bowel gas Small amount of complex ascites noted inferior to liver on images #[id number], [id number]. Visualized pancreas is slightly heterogeneous in appearance. No aneurysmal change of visualized upper abdominal aorta. IVC seen near hepatic dome. Visualized liver is heterogeneously hyperechoic. Evalua tion for focal masses suboptimal due to the heterogeneity. No intrapelvic ductal dilatation. Gallblad aiden noted surgically absent. Some cortical thinning in both kidneys. No hydronephrosis seen bilateral ly. Technologist [place] 1.5 cm simple appearing thin-walled cyst right kidney. There is larger 7.0 cm thin-walled cyst lower level left kidney. Spleen is normal in size IMPRESSION: Heterogeneous hyperechoic appearance of liver likely on basis of diffuse fatty infiltrati on. Evidence of chronic medical renal disease. Gallbladder noted surgically absent.
--- NOTE | 2020-08-17 12:14 | PN ---
PROGRESS NOTE PULMONARY/CRITICAL CARE PROGRESS NOTE: DATE OF SERVICE: 08/17/2020 This is a 64-year-old female who we saw yesterday in consultation. She was admitted with a diagnosis of COVID-19 pneumonitis with acute hypoxemic respiratory failure. Because she was requiring high-flow oxygen and 100% oxygen, the patient was transferred to the intensive care unit. Currently, she is on BiPAP with settings of IPAP 12, EPAP of 5 and 100%. She is not receiving any IV fluids. We did ask the nurses to get a blood gas. The patient had a recent craniotomy for a subdural hematoma. I believe it was done at [facility]. The patient is currently doing about the same. She is oriented x1 according to the nurse. The patient may end up finding herself on the mechanical ventilator. We are hoping to prevent that if possible. PHYSICAL EXAMINATION: VITAL SIGNS: Current vital signs are reviewed. Temperature is 98.8, heart rate 78, respiratory rate 15, blood pressure 117/55, mean 75 and saturations are 97% on BiPAP. Appears with mild respiratory distress. HEENT: Examination is grossly unremarkable. BiPAP mask in place. NECK: Supple. Full range of motion. CARDIOVASCULAR: Examination reveals regular rhythm and rate. Heart rate 78 beats per minute. S1, S2 normal. LUNGS: Reveal diffuse coarse rhonchi. Some bibasilar crackles. No wheezes. ABDOMEN: Soft. No masses or tenderness. EXTREMITIES are intact. There is no edema. SKIN: Without rash. NEUROLOGIC: Examination is nonfocal. LABS: Reviewed. White count 8.1, hemoglobin 8, hematocrit 25.0, platelet count 188,000. PT 17.6, INR 1.8, PTT 36.6, fibrinogen 655. D-dimer 0.97. Blood gases show pO2 of 71, a pCO2 of 46 and a pH of 7.37. This blood gas is consistent with a mixed acid-base disturbance including a mild respiratory acidosis and metabolic alkalosis. PH is essentially normal. Sodium 146, potassium 4.7, chloride 115, CO2 26, anion gap is 5. BUN and creatinine were 48 and 0.87. Magnesium 2.5. Ferritin 5001. AST 151, ALT 201, alkaline phosphatase 208, LDH 2805. CK 25. C-reactive protein 191. Albumin 3.4. Current microbiology is negative. Chest x-ray shows diffuse bilateral patchy infiltrates. CURRENT MEDICATIONS: Reviewed. The patient is on vitamin C, vitamin D3, Colace, Lovenox, Pepcid, Apresoline, insulin, Keppra, melatonin, Solu-Medrol, metoprolol, Effexor, and zinc. ASSESSMENT: 1. Acute hypoxemic respiratory failure secondary to acute COVID-19 pneumonitis/pneumonia. 2. Recent craniotomy for subdural hematoma. 3. Probable underlying chronic obstructive pulmonary disease from heavy tobacco use. 4. History of coronary artery disease. 5. Deep venous thrombosis status post Marissa filter. 6. Fibromyalgia. 7. Gastroesophageal reflux disease. 8. Hyperlipidemia. 9. Essential hypertension. 10.Degenerative joint disease. 11.History of pneumonia. 12.Hypothyroidism. 13.Osteopenia. 14.Chronic back pain. 15.Multiple orthopedic procedures. PLAN: The patient remains on the COVID cocktail including vitamin C, vitamin D3, zinc, and corticosteroids. The patient was beyond on the Remdesivir window. We did give the patient convalescent plasma x2. She is currently on BiPAP with settings of 12/5 and 100%. She is not receiving any IV fluids. Overall prognosis remains very guarded. Will continue to follow. She may end up requiring intubation and mechanical ventilation. Critical care time greater than 30 minutes. MMODL / IJN: [id number] /
[2020-08-17] MEDS: ENOXAPARIN 80 MG/0.8 ML SYRINGE SQ SCH ×2 (12:19→21:29)
[2020-08-17 17:35] LABS: Glucose,Whole Blood 138 mg/dL (75-99)
[2020-08-17] MEDS ORDERED: WARFARIN 3 MG TAB PO ONE (18:00)
[2020-08-17] MEDS: MELATONIN 5 MG TABLET PO SCH (21:02)
[2020-08-17 22:57] LABS: Hemoglobin A1C 5.6 % (4.0-6.0)
[2020-08-17 23:48] LABS: Glucose,Whole Blood 123 mg/dL (75-99)
[2020-08-18 04:22] LABS: D-Dimer 1.09 mg/L FEU (<0.60); INR 3.1 (<1.2); Partial Thromboplastin Time 59.9 sec (22.0-30.0); Prothrombin Time 30.6 sec (9.0-12.0)
[2020-08-18 04:32] LABS: C Reactive Protein 87.9 mg/L (<10.0)
[2020-08-18 05:53] LABS: Glucose,Whole Blood 138 mg/dL (75-99)
[2020-08-18 06:22] LABS: Anisocytosis Slight; Basophils % (A) 0 %; Eosinophils % (A) 0 %; HCT 32.3 % (34.0-46.0); Hypochromasia Slight; Lymphocytes # (A) 0.6 k/uL (1.0-4.8); Lymphocytes % (A) 9 %; MCH 32.4 pg (25.0-35.0); MCV 104.3 fL (80.0-100.0); Macrocytosis Moderate; Mean Platelet Volume 9.1; Monocytes # (A) 0.2 k/uL (0-1.0); Monocytes % (A) 3 %; Neutrophils # (A) 5.4 k/uL (1.3-7.7); Neutrophils % (A) 86 %; Platelet Count 173 k/uL (150-450); RDW 16.3 % (11.5-15.5); WBC 6.3 k/uL (3.8-10.6)
[2020-08-18] MEDS: INSULIN ASPART (NovoLOG) 100 UNIT/ML VIAL SQ SCH ×3 (06:32→17:53)
[2020-08-18] MEDS: methylPREDNISolone SOD SUCCI 125 MG/2 ML VIAL IV SCH ×3 (06:32→17:53)
--- NOTE | 2020-08-18 07:53 | XR ---
EXAMINATION TYPE: XR chest 1V DATE OF EXAM: 08/18/2020 COMPARISON: 08/17/2020 HISTORY: 64-year-old female COVID TECHNIQUE: Single frontal view of the chest is obtained. FINDINGS: Heart mildly enlarged. Diffuse bilateral airspace opacity persists. No sizable effusion. IMPRESSION: Continued diffuse bilateral airspace disease.
[2020-08-18] MEDS: levETIRAcetam IV 500 MG in SODIUM CHLORIDE 0.9% 100 ML IVPB SCH ×2 (08:40→20:54)
[2020-08-18] MEDS: ENOXAPARIN 80 MG/0.8 ML SYRINGE SQ SCH ×2 (08:40→20:55)
[2020-08-18] MEDS: FAMOTIDINE 20 MG/2 ML VIAL IV SCH ×2 (08:40→20:54)
[2020-08-18] MEDS ORDERED: DESMOPRESSIN 0.2 MG TAB PO SCH (09:15)
[2020-08-18 10:08] LABS: Calcium 9.2 mg/dL (8.4-10.2); Potassium 4.4 mmol/L (3.5-5.1)
--- NOTE | 2020-08-18 10:10 | P.NPCON ---
History of Present Illness - Reason for Consult hypernatremia - History of Present Illness Reason for consultation: Hypernatremia History of present illness: Patient is a 64-year-old female seen in consultation for hypernatremia. Patient presented to the hospital on 08/16/2020 as she was found unresponsive at her house. She was noted to be hypoxic. She is Covid positive and is currently on BiPAP. Her sodium level has been stable at 146 the last 2 days. Labs from this morning are pending. She is currently not on any IV fluids or diuretics. Patient has history of subdural hemorrhage and meningioma and recently underwent left frontal craniotomy at [facility] in July 2020. Patient's urine output in the last 24 hours is documented as 1315 mL. She has been making about 40-70 cc of urine per hour. Patient's urine sodium was 47 and urine osmolality 631. Serum osmolality was high at 331. She is not able to tolerate much oral intake at this time. Blood pressure is stable. Creatinine 0.87 as of yesterday. Vital signs are stable. HEENT: Head exam is unremarkable. On BiPAP. LUNGS: Breath sounds decreased. HEART: Rate and Rhythm are regular. ABDOMEN: Soft, nontender. EXTREMITITES: No edema. Past Medical History Past Medical History: Asthma, Coronary Artery Disease (CAD), Deep Vein Thrombosis (DVT), Fibromyalgia, GERD/Reflux, Hyperlipidemia, Hypertension, Osteoarthritis (OA), Pneumonia, Thyroid Disorder Additional Past Medical History / Comment(s): "osteopenia, renal insufficiency, back pain chronic per patient" History of Any Multi-Drug Resistant Organisms: None Reported Past Surgical History: Appendectomy, Cholecystectomy, Hysterectomy, Joint Repla cement Additional Past Surgical History / Comment(s): TOTAL RIGHT AND LEFT HIP, TOTAL RIGHT AND LEFT KNEE, BILATERAL FOOT SURGERY, BILATERAL HAND SURGERY-JOINT REPLACEMENT, [place]issa filter placement, left wrist tendon repair, posterior lateral decompression and fusion of the lumbar spine Past Anesthesia/Blood Transfusion Reactions: No Reported Reaction Past Psychological History: No Psychological Hx Reported Smoking Status: Current every day smoker Past Alcohol Use History: Occasional Past Drug Use History: Marijuana - Past Family History Father Family Medical History: Congestive Heart Failure (CHF) Additional Family Medical History / Comment(s): Father is alive at age 85 currently at the hospice home with history of mesothelioma Mother Family Medical History: Cancer, Deep Vein Thrombosis (DVT) Additional Family Medical History / Comment(s): Mother is alive at age 85 currently at the hospice home with history of dementia and GI cancer. Sister(s) Family Medical History: Cancer Additional Family Medical History / Comment(s): Patient has 3 sisters and 3 brothers. Daughter(s) Additional Family Medical History / Comment(s): Patient is 3 daughters and one has history of arrhythmia. Patient has 2 sons with no major medical problems. Medications and Allergies Home Medications Medication Instructions Recorded Confirmed Type Warfarin [Coumadin] 2.5 mg PO HS 07/27/14 08/16/20 History Cholecalciferol [Vitamin D3 (25 1,000 unit PO QAM 12/28/15 08/16/20 History Mcg = 1000 Iu)] Docusate [Colace] 100 mg PO DAILY 12/28/15 08/16/20 History Famotidine [Pepcid] 20 mg PO DAILY 12/28/15 08/16/20 History Pravastatin Sodium [Pravachol] 10 mg PO HS 12/28/15 08/16/20 History Pregabalin [Lyrica] 150 mg PO BID 12/28/15 08/16/20 History Venlafaxine HCl ER [Effexor XR] 150 mg PO DAILY 12/28/15 08/16/20 History amLODIPine BESYLATE [Norvasc] 5 mg PO BID 07/27/17 08/16/20 History Albuterol Inhaler [Ventolin Hfa 1 puff INHALATION RT-Q6H PRN 08/16/20 08/16/20 History Inhaler] Bisacodyl 10 mg PO DAILY 08/16/20 08/16/20 History Carvedilol [Coreg] 25 mg PO BID 08/16/20 08/16/20 History Fluticasone/Vilanterol [Breo 1 puff INHALATION RT-DAILY 08/16/20 08/16/20 History Ellipta 100-25 Mcg Inhaler] HYDROcodone/APAP 5-325MG [[place] 1 - 2 tab PO Q4HR PRN 08/16/20 08/16/20 History 5-325] Levothyroxine Sodium [Synthroid] 37.5 mcg PO DAILY 08/16/20 08/16/20 History Miconazole Nitrate [Desenex] 1 applic TOPICAL BID 08/16/20 08/16/20 History dexAMETHasone [Dexamethasone] 2 mg PO BID 08/16/20 08/16/20 History hydrALAZINE HCL [Apresoline] 100 mg PO TID 08/16/20 08/16/20 History levETIRAcetam [Keppra] 500 mg PO Q12HR 08/16/20 08/16/20 History Allergies Allergy/AdvReac Type Severity Reaction Status Date / Time erythromycin lactobionate Allergy RASH,VOMITI Verified 08/16/20 11:46 [From Erythrocin] NG influenza virus vaccine, Allergy LOW WHITE Verified 08/16/20 11:46 specific COUNT,INFLAMED [influenza virus LIVER vacc,specific] morphine Allergy Nausea & Verified 08/16/20 11:46 Vomiting shellfish derived [Shellfish] Allergy Swelling Verified 08/16/20 11:46 of tongue,rash iodine AdvReac Anaphylaxis Verified 08/16/20 11:46 Physical Exam Vitals: Vital Signs Temp Pulse Resp BP Pulse Ox 08/18/20 09:00 73 22 143/76 96 08/18/20 08:00 73 21 146/75 95 08/18/20 07:00 74 18 131/68 91 L 08/18/20 06:00 73 14 122/73 95 08/18/20 05:00 86 18 126/66 95 08/18/20 04:00 75 17 133/71 88 L 08/18/20 03:00 77 20 131/66 95 08/18/20 02:00 69 35 H 132/68 93 L 08/18/20 01:00 74 23 114/62 95 08/18/20 00:17 68 17 114/62 93 L 08/18/20 00:00 71 19 117/63 94 L 08/17/20 23:00 74 16 115/64 93 L 08/17/20 22:00 73 17 116/63 93 L 08/17/20 21:00 70 16 118/65 94 L 08/17/20 20:00 98.2 F 80 11 L 113/67 93 L 08/17/20 19:00 69 15 112/63 93 L 08/17/20 18:00 75 20 108/64 95 08/17/20 17:00 70 24 120/65 92 L 08/17/20 16:00 98.7 F 68 17 103/60 93 L 08/17/20 15:00 78 18 141/72 93 L 08/17/20 14:00 76 18 131/60 93 L 08/17/20 13:00 77 17 140/77 88 L 08/17/20 12:00 98.3 F 81 26 H 108/45 97 08/17/20 11:00 78 15 117/55 97 08/17/20 10:00 73 18 118/52 98 Intake and Output 08/17/20 08/18/20 08/18/20 22:59 06:59 14:59 Intake Total 100 100 Output Total 420 445 165 Balance -420 -070 -65 Intake: Intake, IV Titration 100 Amount levETIRAcetam IV 500 mg 100 In Sodium Chloride 0.9% 100 ml @ 400 mls/hr IVPB Q12HR [facility] Rx#:[id number] Oral 100 Output: Urine 420 445 165 Other: Voiding Method Indwelling Catheter Indwelling Catheter Indwelling Catheter Weight 100.6 kg Results - Lab Results Most recent lab results ABG pH 7.37 (7.35-7.45) 08/17/20 09:48 ABG pCO2 46 mmHg (35-45) H 08/17/20 09:48 ABG pO2 71 mmHg (83-108) L 08/17/20 09:48 ABG HCO3 26 mmol/L (21-25) H 08/17/20 09:48 ABG O2 Saturation 95.4 % (94-97) 08/17/20 09:48 Calcium 9.3 mg/dL (8.4-10.2) 08/17/20 05:12 Magnesium 2.5 mg/dL (1.6-2.3) H 08/17/20 05:12 08/18/20 03:28 08/17/20 05:12 Assessment and Plan Plan: Assessment: 1. Hypernatremia secondary to lack of oral water intake. Patient does not polyuric. Urine osmolality 631 and urine random sodium 47. No evidence of diabetes insipidus. 2. Acute hypoxic respiratory failure secondary to covid 19 pneumonia. C urrently on BiPAP. 3. History of meningioma and left subdural hemorrhage status post left frontal craniotomy in July 2020. 4. Benign hypertension. Stable. Plan: Start normal saline at 50 mL an hour. I will change to D5W if sodium level still elevated. Continue to monitor renal function and urine output. Check UA. Follow-up morning labs. Thank you for the consultation. I will continue to follow the patient with you during her hospital stay.
[2020-08-18] MEDS: ASCORBIC ACID 500 MG TAB PO SCH (10:13)
[2020-08-18] MEDS: CHOLECALCIFEROL 1,000 UNIT TAB PO SCH (10:14)
[2020-08-18] MEDS: DOCUSATE 100 MG CAP PO SCH (10:14)
[2020-08-18] MEDS: VENLAFAXINE HCL ER 150 MG CAP PO SCH (10:14)
[2020-08-18] MEDS: ZINC SULFATE 220 MG CAP PO SCH (10:14)
[2020-08-18] MEDS: THIAMINE 100 MG TAB PO SCH (10:14)
[2020-08-18] MEDS: DEXTROSE 5% IN WATER 1,000 ML IV SCH (10:15)
--- NOTE | 2020-08-18 10:20 | P.CNNES ---
History of Present Illness Consult date: 08/18/19 Requesting physician: Alexandra Orta Reason for Consult: altered mental status History of Present Illness: This is a 64-year-old woman with medical history of left frontal subdural hemorrhage with meningioma status post recent craniotomy, coronary artery disease, hypertension, DVT, pulmonary embolism (2002), , fibromyalgia who presented to the emergency department on 08/16/2020 for altered mental status. History is obtained from the medical records since the patient is unable to provide all of the history. Currently the patient is on BiPAP machine and that was the main reason she cannot provide most of the history. That she stated that she had a stroke over the left frontal region and that she had that craniot denis and she was over at [facility]. She stated that her stroke was about 5 weeks ago. Per medical records, the patient daughter is a nurse who checked on her on 08/16/2019 and it is documented that patient having shortness of breath, her oxygen was saturating at 30%. EMS was the contacted and that they found the patient unresponsive in her oxygen was in the 40s. She was placed on BiPAP. According to the daughter she stated that the patient had a acute stroke from the subdural hemorrhage causing right arm and right leg weakness as well as the patient had the aphasia. Patient had the craniotomy over the left frontal and was hospitalized at the [facility] and was discharged on 08/13/2020. She was placed on a seizure prophylaxis. She was hospitalized for a total of 6 week s and her weakness as well as speech difficulty improved. Patient was discharged on Keppra 500 mg 1 tablet twice a day. Workup in the hospital consisted of: Initial vital signs is a blood pressure of 133/62, heart rate of 92, average of 97.7 Fahrenheit axillary, respiratory of 22 and the pulse ox of 86 L on 15 L of non-rebreather. CT of the head was reported as interval surgical decompression. There is mild diffuse age-related related as cerebral atrophy and mild to moderate chronic small vessel ischemic changes currently. No recurrent acute intracranial hemorrhage. In the body of the report and mentioned that the there is a new left frontal craniotomy. Some manual encephalomalacia over the left frontal lobe. No acute intracranial hemorrhage currently. EKG is reported as normal sinus rhythm. Nonspecific T wave abnormality. Abnormal EKG. Chest x-ray is reported as cardiomegaly with bilateral multifocal acute infiltrates consistent with a product of covert 19 infection. No significant change from prior. The flores virus PCR on 08/16/2020 is detected Patient MCV is 102.7 on presentation the repeat is 103.7. Upon initial hemoglobin 7.4 and a repeat is 8.0. Initial coagulation study: PT of 25.8, INR 2.6 and PTT of 50.0 Initial arterial blood gas shows pO2 of 55, oxygen saturation of 87.8 and a total CO2 is 26. Fine Initial sodium was 146, BUN 48, glucose initially is 110 and the repeated POC glucose is 110. AST a 74 and ALT 79. Patient was restarted on the Keppra 500 mg 1 tablet twice a day. Per the patient nurse the patient continues to have a large urine output even though the patient is not getting much of fluids. Per the patient nurse has not had IV fluids for 2 days and regard oral cheese having minimal to none. Urine output that she is urinating the in the 60 to his mid 60s cc an hour. Review of Systems R the 12 point review of system is limited because of patient condition by the prone positive and negative as per HPI. Past Medical History Past Medical History: Asthma, Coronary Artery Disease (CAD), Deep Vein Thrombosis (DVT), Fibromyalgia, GERD/Reflux, Hyperlipidemia, Hypertension, Osteoarthritis (OA), Pneumonia, Thyroid Disorder Additional Past Medical History / Comment(s): "osteopenia, renal insufficiency, back pain chronic per patient" History of Any Multi-Drug Resistant Organisms: None Reported Past Surgical History: Appendectomy, Cholecystectomy, Hysterectomy, Joint Replacement Additional Past Surgical History / Comment(s): TOTAL RIGHT AND LEFT HIP, TOTAL RIGHT AND LEFT KNEE, BILATERAL FOOT SURGERY, BILATERAL HAND SURGERY-JOINT REPLACEMENT, [place] filter placement, left wrist tendon repair, posterior lateral decompression and fusion of the lumbar spine Past Anesthesia/Blood Transfusion Reactions: No Reported Reaction Past Psychological History: No Psychological Hx Reported Smoking Status: Current every day smoker Past Alcohol Use History: Occasional Past Drug Use History: Marijuana - Past Family History Father Family Medical History: Congestive Heart Failure (CHF) Additional Family Medical History / Comment(s): Father is alive at age 85 curre ntly at the hospice home with history of mesothelioma Mother Family Medical History: Cancer, Deep Vein Thrombosis (DVT) Additional Family Medical History / Comment(s): Mother is alive at age 85 currently at the hospice home with history of dementia and GI cancer. Sister(s) Family Medical History: Cancer Additional Family Medical History / Comment(s): Patient has 3 sisters and 3 brothers. Daughter(s) Additional Family Medical History / Comment(s): Patient is 3 daughters and one has history of arrhythmia. Patient has 2 sons with no major medical problems. Medications and Allergies Home Medications Medication Instructions Recorded Confirmed Type Warfarin [Coumadin] 2.5 mg PO HS 07/27/14 08/16/20 History Cholecalciferol [Vitamin D3 (25 1,000 unit PO QAM 12/28/15 08/16/20 History Mcg = 1000 Iu)] Docusate [Colace] 100 mg PO DAILY 12/28/15 08/16/20 History Famotidine [Pepcid] 20 mg PO DAILY 12/28/15 08/16/20 History Pravastatin Sodium [Pravachol] 10 mg PO HS 12/28/15 08/16/20 History Pregabalin [Lyrica] 150 mg PO BID 12/28/15 08/16/20 History Venlafaxine HCl ER [Effexor XR] 150 mg PO DAILY 12/28/15 08/16/20 History amLODIPine BESYLATE [Norvasc] 5 mg PO BID 07/27/17 08/16/20 History Albuterol Inhaler [Ventolin Hfa 1 puff INHALATION RT-Q6H PRN 08/16/20 08/16/20 History Inhaler] Bisacodyl 10 mg PO DAILY 08/16/20 08/16/20 History Carvedilol [Coreg] 25 mg PO BID 08/16/20 08/16/20 History Fluticasone/Vilanterol [Breo 1 puff INHALATION RT-DAILY 08/16/20 08/16/20 History Ellipta 100-25 Mcg Inhaler] HYDROcodone/APAP 5-325MG [[place] 1 - 2 tab PO Q4HR PRN 08/16/20 08/16/20 History 5-325] Levothyroxine Sodium [Synthroid] 37.5 mcg PO DAILY 08/16/20 08/16/20 History Miconazole Nitrate [Desenex] 1 applic TOPICAL BID 08/16/20 08/16/20 History dexAMETHasone [Dexamethasone] 2 mg PO BID 08/16/20 08/16/20 History hydrALAZINE HCL [Apresoline] 100 mg PO TID 08/16/20 08/16/20 History levETIRAcetam [Keppra] 500 mg PO Q12HR 08/16/20 08/16/20 History Allergies Allergy/AdvReac Type Severity Reaction Status Date / Time erythromycin lactobionate Allergy RASH,VOMITI Verified 08/16/20 11:46 [From Erythrocin] NG influenza virus vaccine, Allergy LOW WHITE Verified 08/16/20 11:46 specific COUNT,INFLAMED [influenza virus LIVER vacc,specific] morphine Allergy Nausea & Verified 08/16/20 11:46 Vomiting shellfish derived [Shellfish] Allergy Swelling Verified 08/16/20 11:46 of tongue,rash iodine AdvReac Anaphylaxis Verified 08/16/20 11:46 Physical Examination - Vital Signs Vital Signs: Vital Signs Temp Pulse Resp BP Pulse Ox 08/18/20 07:00 74 18 131/68 91 L 08/18/20 06:00 73 14 122/73 95 08/18/20 05:00 86 18 126/66 95 08/18/20 04:00 75 17 133/71 88 L 08/18/20 03:00 77 20 131/66 95 08/18/20 02:00 69 35 H 132/68 93 L 08/18/20 01:00 74 23 114/62 95 08/18/20 00:17 68 17 114/62 93 L 08/18/20 00:00 71 19 117/63 94 L 08/17/20 23:00 74 16 115/64 93 L 08/17/20 22:00 73 17 116/63 93 L 08/17/20 21:00 70 16 118/65 94 L 08/17/20 20:00 98.2 F 80 11 L 113/67 93 L 08/17/20 19:00 69 15 112/63 93 L 08/17/20 18:00 75 20 108/64 95 08/17/20 17:00 70 24 120/65 92 L 08/17/20 16:00 98.7 F 68 17 103/60 93 L 08/17/20 15:00 78 18 141/72 93 L 08/17/20 14:00 76 18 131/60 93 L 08/17/20 13:00 77 17 140/77 88 L 08/17/20 12:00 98.3 F 81 26 H 108/45 97 08/17/20 11:00 78 15 117/55 97 08/17/20 10:00 73 18 118/52 98 08/17/20 09:00 73 23 123/48 91 L Intake and Output 08/17/20 08/18/20 08/18/20 22:59 06:59 14:59 Intake Total 100 Output Total 420 445 50 Balance -420 -345 -50 Intake: Oral 100 Output: Urine 420 445 50 Other: Voiding Method Indwelling Catheter Indwelling Catheter Weight 100.6 kg GENERAL: The patient is lying in bed and is not in acute distress. CHEST: The heart rate is regular rate rhythm. No murmurs to auscultation. LUNG: Clear to auscultation bilaterally no wheezing noted throughout. Not labored breathing. Is currently on BiPAP machine. ABDOMEN/GI: Bowel sounds present in all 4 quadrants. No tenderness to palpation throughout. NEUROLOGICAL: Limited since on BIPAP machine. Higher mental function: The patient is awake, alert, oriented to self, place. Regarding to time she correctly answered it to options. Patient is following commands. No aphasia and no neglect. Cranial nerves: The pupils are round, equal and reactive to light and accommodation. Visual mccauley are full to confrontation throughout. Extraocular movement is intact no nystagmus is noted. Facial sensation is normal to touch throughout. The facial strength could not fully assess since had mask for respiratory treatment but no focal deficit seen with mask on. Hearing is normal bilaterally to hand rub. Shoulder shrug is normal bilaterally. Motor: Gait is deferred because of patient's condition. 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 Otherwise I felt it was 5/5 throughout. Normal tone and bulk. Sensation: Sensation is normal to touch throughout. Reflexes (right/left): 3+ right patellar otherwise 2+ throughout. Plantars are downgoing bilaterally. Results Urine osmolality is 631. Urine random sodium is 47mmole/L - Laboratory Findings CBC and BMP: 08/18/20 03:28 08/17/20 05:12 Abnormal Lab Findings: Abnormal Labs 08/16/20 08/16/20 08/16/20 10:16 10:16 10:16 RBC 3.02 L Hgb 10.4 L D Hct 31.0 L MCV 102.7 H RDW 16.1 H Lymphocytes # 0.7 L PT 25.8 H INR 2.6 H APTT 50.0 H Fibrinogen D-Dimer ABG pCO2 ABG pO2 ABG HCO3 ABG Total CO2 ABG O2 Saturation Sodium 146 H Chloride 117 H BUN 48 H Glucose 110 H POC Glucose (mg/dL) Osmolality Magnesium 2.5 H Ferritin 3653.0 H AST 74 H ALT 79 H Alkaline Phosphatase Lactate Dehydrogenase 2556 H Creatine Kinase C-Reactive Protein 220.6 H Total Protein 5.9 L Albumin 3.2 L Procalcitonin Coronavirus (PCR) 08/16/20 08/16/20 08/16/20 10:16 10:22 10:44 RBC Hgb Hct MCV RDW Lymphocytes # PT INR APTT Fibrinogen D-Dimer ABG pCO2 ABG pO2 55 L* ABG HCO3 ABG Total CO2 26 H ABG O2 Saturation 87.8 L Sodium Chloride BUN Glucose POC Glucose (mg/dL) Osmolality Magnesium Ferritin AST ALT Alkaline Phosphatase Lactate Dehydrogenase Creatine Kinase C-Reactive Protein Total Protein Albumin Procalcitonin 0.34 H Coronavirus (PCR) Detected A 08/16/20 08/16/20 08/17/20 14:55 18:15 00:01 RBC Hgb Hct MCV RDW Lymphocytes # PT INR APTT Fibrinogen D-Dimer ABG pCO2 ABG pO2 ABG HCO3 ABG Total CO2 ABG O2 Saturation Sodium Chloride BUN Glucose POC Glucose (mg/dL) 110 H 119 H 145 H Osmolality Magnesium Ferritin AST ALT Alkaline Phosphatase Lactate Dehydrogenase Creatine Kinase C-Reactive Protein Total Protein Albumin Procalcitonin Coronavirus (PCR) 08/17/20 08/17/20 08/17/20 05:12 05:12 05:12 RBC 2.41 L Hgb 8.0 L D Hct 25.0 L MCV 103.7 H RDW 15.8 H Lymphocytes # PT 17.6 H INR 1.8 H APTT 36.6 H Fibrinogen 655 H D-Dimer 0.97 H ABG pCO2 ABG pO2 ABG HCO3 ABG Total CO2 ABG O2 Saturation Sodium 146 H Chloride 115 H BUN 48 H Glucose 125 H POC Glucose (mg/dL) Osmolality Magnesium 2.5 H Ferritin 5001.0 H AST 151 H ALT 201 H Alkaline Phosphatase 208 H Lactate Dehydrogenase 2805 H Creatine Kinase 25 L C-Reactive Protein 190.8 H Total Protein 6.2 L Albumin 3.4 L Procalcitonin Coronavirus (PCR) 08/17/20 08/17/20 08/17/20 05:34 05:42 09:48 RBC Hgb Hct MCV RDW Lymphocytes # PT INR APTT Fibrinogen D-Dimer ABG pCO2 46 H ABG pO2 71 L ABG HCO3 26 H ABG Total CO2 28 H ABG O2 Saturation Sodium Chloride BUN Glucose POC Glucose (mg/dL) 140 H Osmolality 331 H* Magnesium Ferritin AST ALT Alkaline Phosphatase Lactate Dehydrogenase Creatine Kinase C-Reactive Protein Total Protein Albumin Procalcitonin Coronavirus (PCR) 08/17/20 08/17/20 08/17/20 11:08 17:34 23:47 RBC Hgb Hct MCV RDW Lymphocytes # PT INR APTT Fibrinogen D-Dimer ABG pCO2 ABG pO2 ABG HCO3 ABG Total CO2 ABG O2 Saturation Sodium Chloride BUN Glucose POC Glucose (mg/dL) 137 H 138 H 123 H Osmolality Magnesium Ferritin AST ALT Alkaline Phosphatase Lactate Dehydrogenase Creatine Kinase C-Reactive Protein Total Protein Albumin Procalcitonin Coronavirus (PCR) 08/18/20 08/18/20 08/18/20 03:28 03:28 03:28 RBC 3.10 L Hgb 10.0 L D Hct 32.3 L MCV 104.3 H RDW 16.3 H Lymphocytes # 0.6 L PT 30.6 H INR 3.1 H APTT 59.9 H Fibrinogen 572 H D-Dimer 1.09 H ABG pCO2 ABG pO2 ABG HCO3 ABG Total CO2 ABG O2 Saturation Sodium Chloride BUN Glucose POC Glucose (mg/dL) Osmolality Magnesium Ferritin AST ALT Alkaline Phosphatase Lactate Dehydrogenase 2721 H Creatine Kinase 22 L C-Reactive Protein 87.9 H Total Protein Albumin Procalcitonin Coronavirus (PCR) 08/18/20 05:50 RBC Hgb Hct MCV RDW Lymphocytes # PT INR APTT Fibrinogen D-Dimer ABG pCO2 ABG pO2 ABG HCO3 ABG Total CO2 ABG O2 Saturation Sodium Chloride BUN Glucose POC Glucose (mg/dL) 138 H Osmolality Magnesium Ferritin AST ALT Alkaline Phosphatase Lactate Dehydrogenase Creatine Kinase C-Reactive Protein Total Protein Albumin Procalcitonin Coronavirus (PCR) Assessment and Plan Assessment: This is a 64-year-old woman with medical history of recent left hemorrhage stroke/frontal subdural hemorrhage with meningioma status post recent craniotomy that presented to the emergency department on 08/16/2020 since the patient was having shortness of breath and the her oxygen saturation per the daughter was in the 30s. She was found to have the Covid 19 positive on this admission. Altered mental status as seems to be toxic metabolic encephalopathy (from multifactorial: Elevated liver function tests, mild hypernatremia, anemia, hypoxia) and underlying pneumonia from covid---improving. Recent left hemorrhage stroke from subdural hemorrhage over the left frontal with meningioma status post craniotomy (at [facility] and discharged on 08/13/2020). 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 Acute hypoxic respiratory failure secondary due to Covid pneumonia was underlying COPD exacerbation Elevated liver function test Macrocytic anemia History of DVT History of pulmonary embolism History of coronary artery disease Hypertension Hypothyroidism Hyperlipidemia Fibromyalgia Depression Plan: Continue Keppra 500 mg 1 tablet twice a day as seizure prophylaxis. An EEG is not warranted since the patient is awake alert oriented 3 and that was following commands. If the patient's condition worsens an EEG can be considered. During nighttime the patient gets agitated and likely it's the due to delirium because of her medical condition as well as hospital stay. Will try to obtain records from [facility]. 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 If there is a decrease in the urine output after desmopressin then that this seems the to support the central diabetes insipidus. Regarding the macrocytic anemia I'll order vitamin B12 and folate level. I'll also order a TSH and ammonia level. I started the patient on thiamine 100mg daily. Continue stricts In/outs. Recommend daily serum sodium and osmolality as well as urine sodium and urine osmolality Nephrology is on board. Regarding the rest of the medical management will defer to the primary team as well as ICU team. The plan was discussed with the patient's nurse. Thank you for the consultation. James Nava MD Neuro-hospitalist. Time with Patient: Greater than 30
[2020-08-18 10:39] LABS: Ferritin 6418.7 ng/mL (10.0-291.0)
--- NOTE | 2020-08-18 10:53 | P.PN ---
Subjective Progress Note Date: 08/18/20 HISTORY OF PRESENT ILLNESS Ms. Sutherland is a 64 years old female patient of Dr. Siu with past medical history of coronary artery disease, hypertension, history of DVT and pul monary embolism in 2002, fibromyalgia, asthma who presented to the hospital with worsening shortness of breath associated with change in mental status for the past 24 hours. Patient was in [facility] for subdural hemorrhage associated with meningioma in the left frontal lobe. Patient underwent left frontal craniotomy and was discharged on 08/13 on seizure precaution medication and pain medication. Patient's daughter is an RN who checked her oxygen at home which was saturating at 38%. Patient was brought to the hospital by EMS as patient was found unresponsive with her oxygen in the 40s and was placed on a BiPAP. Patient is unable to provide any history as she Is confused. Called patient's who stated that patient was doing well post discharge until last night when she became short of breath and confused. Patient did have acute stroke from the subdural hemorrhage causing right arm and right leg weakness associated with a phase ER. Patient was in the hospital for 6 weeks and recovered from both right upper and lower extremity weakness and a phasia. Patient was smoking at home post discharge. She was evaluated by her daughter who is an RN who insisted on calling EMS as she did not appear well.On evaluation in the ER patient was found to have bilateral groundglass opacities concerning for call with pneumonia. Vital suggested temp of 97.9 pulse 81 blood pressure 122/78 respiratory rate of 20. Call with 19 was positive. WBC 5.8 hemoglobin 10.4. ABG was obtained with a pO2 of 55 pCO2 of 44 . Patient's sodium is 146 chloride 117 BUN 48 creatinine 1.01 glucose 110 AST 74 8079 magnesium 2.5 proBNP 1560 LDH 2556 troponin negative 1 CRP 220. INR is jose vated at 2.6. Pulmonary consult was placed. Patient placed on Solu-Medrol 60 every 6, zinc sulfide 220 vitamin C 1000 mg daily. EKG was normal sinus rhythm with no ST or segment depression or elevation. 1/3 patient assessed in ICU currently on BiPAP. Patient is oriented 2. Patient was not able to tolerate being off BiPAP for even a few minutes to take her medications. Patient is currently on 100% FiO2 on BiPAP saturating at 91- 92% vitals otherwise stable temp of 98.8 pulse 75 respiratory rate 27 blood pressure 129/53. Patient has a drop of hemoglobin from 10.4-8 today with MCV 103. INR is 1.8 subtherapeutic, elevated APTT 50 in origin and d-dimer 0.97. PCO2 is 46 pO2 71 bicarb 28 with a pH of 7.37, sodium 146 chloride 1:15, BUN 48 creatinine 0.87 glucose 125. Alkaline phosphatase has increased to 215 from 1:15, AST increased from 7 to 151 ALT increased from 79 to 201. Ultrasound abdomen ordered to evaluate for liver and gallbladder. 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 Patient is unable to take oral medication will switch patient's medication to IV today 08/18: Patient remains in the intensive care unit on BiPAP. She maintains a pulse ox of 91-96% but quickly drops if BiPAP is removed. She's been afebrile, heart rate 73, blood pressure 146/75. Repeat blood work reveals WBC 6.3, hemoglobin 10, platelet count 173. INR is 3.1. Fibrinogen 572, d-dimer 1.09. Sodium 152, potassium 4.4, chloride 117, CO2 31, BUN 48 and creatinine 0.89. TSH 0.305. ProBNP 1290. C-reactive protein 87.9. CK 22, LDH 2721. Blood sugars running in the 120s and 130s. Repeat chest x-ray reveals continued bilateral airspace disease. Patient has been seen by neurology with recommendations to continue Keppra 500 mg twice daily for seizure prophylaxis. Records from [facility] to be obtained. Patient was started on desmopressin 0.05 mg 1 tablet twice a day for central diabetes insipidus. Vitamin B-12 and folate levels ordered. TSH and ammonia level. Thiamine was started. Patient was also seen by nephrology for hypernatremia and started on normal saline at 50 mL per hour for now. REVIEW OF SYSTEMS Constitutional: No fever, no chills, no night sweats. No weight change. Reports weakness, reports fatigue, reports daytime sleepiness. EENT: No headache. No blurred vision or double vision, no loss of vision. No loss of Hearing, no ringing in the ears, no dizziness. No nasal drainage or congestion. No epistaxis. No sore throat. Lungs: Reports shortness of breath, reports cough, no sputum production. No wheezing. Cardiovascular: No chest pain, no lower extremity edema. No palpitations. No paroxysmal nocturnal dyspnea. No orthopnea. No lightheadedness or dizziness. No syncopal episodes. Abdominal: No abdominal pain. No nausea, vomiting. No diarrhea. No constipation. No bloody or tarry stools.. No loss of appetite. Genitourinary: No dysuria, increased frequency, urgency. No urinary retention. Musculoskeletal: No myalgias. No muscle weakness, no gait dysfunction, no frequent falls. No back pain. No neck pain. Integumentary: No wounds, no lesions. No rash or pruritus. No unusual bruising. No change in hair or nails. Neurologic: No aphasia. No facial droop. Reported change in mentation- improving. No head injury. No headache. No paralysis. No paresthesia. Psychiatric: No depression. No anxiety. No mood swings. Endocrine: No abnormal blood sugars. No weight change. PHYSICAL EXAMINATION Gen: This is a 63-year-old female. She is in the ICU on BiPAP. HEENT: Head is atraumatic, normocephalic. Pupils equal, round. Sclerae is anicteric. NECK: Supple. No JVD. No lymphadenopathy. No thyromegaly. LUNGS: Scattered rhonchi. No wheezes. Mild intercostal retractions. HEART: Regular rate and rhythm. 3/6 systolic murmur. ABDOMEN: Soft. Bowel sounds are present. No masses. No tenderness. Moses catheter in place. EXTREMITIES: No pedal edema. No calf tenderness. NEUROLOGICAL: Patient is awake, alert and oriented x3. Cranial nerves 2 through 12 are grossly intact. Mental status has improved. ASSESSMENT AND PLAN 1. Acute hypoxic respiratory failure secondary to COVID-19 Pneumonia and COPD exacerbation. Consult with pulmonary medicine appreciated. Continue oxygen therapy currently on BiPAP 2. COVID-19 pneumonia. Continue vitamin C, vitamin D, zinc, Solu-Medrol, Lovenox. 3. COPD exacerbation. Continue Solu-Medrol 60 mg IV every 6 hours, pulmonary c onsult appreciated. 4. Acute hemorrhagic stroke with acute left subdural hemorrhage with benign tu mor status post left frontal craniotomy. Patient was discharged on August 13 from [facility]/rehab facility. Continue Keppra and steroids. Consult with neurology appreciated. 5. Acute toxic metabolic encephalopathy secondary to Covid 19. Neurology consult appreciated. Continue Keppra for prophylaxis seizure activity. Hold [place] and Lyrica. 6. Central diabetes insipidus with hypernatremia. Patient is currently on desmopressin 0.05 mg 1 tablet twice daily. 7. History of pulmonary embolism and DVT. Continue Lovenox 80 mg subcu every 12 hours. Hold Coumadin. 8. History of coronary artery disease. Continue Lopressor 9. Hypertension. Continue Lopressor 5 mg IV push every 6 hours as needed, hydralazine 10 mg IV push every 6 hours as needed 10. Hypothyroidism. Patient will be resumed on levothyroxine 25 g IV daily. 11. Hyperlipidemia. Hold pravastatin. 12. Recurrent depression. Continue venlafaxine 150 mg oral daily. 13. GI prophylaxis. Pepcid 20 mg IV every 12 hours. 14. DVT prophylaxis. Lovenox subcu. DISCHARGE PLAN To be determined. Impression and plan of care have been directed as dictated by the signing physician. Karyn Tamayo nurse practitioner acting as scribe for signing physician. Objective - Vital Signs Vital signs: Vital Signs Temp 98.2 F 08/17/20 20:00 Pulse 74 08/18/20 07:00 Resp 18 08/18/20 07:00 BP 131/68 08/18/20 07:00 Pulse Ox 91 L 08/18/20 07:00 Intake & Output 08/17/20 08/18/20 08/18/20 18:59 06:59 18:59 Intake Total 50 100 Output Total 675 640 50 Balance -625 -540 -50 Weight 100.6 kg Intake: Oral 50 100 Output: Urine 675 640 50 Other: Voiding Method Indwelling Catheter Indwelling Catheter - Labs CBC & Chem 7: 08/18/20 03:28 08/18/20 09:00 Labs: Abnormal Lab Results - Last 24 Hours (Table) 08/17/20 08/17/20 08/17/20 Range/Units 05:12 05:34 09:48 RBC (3.80-5.40) m/uL Hgb (11.4-16.0) gm/dL Hct (34.0-46.0) % MCV (80.0-100.0) fL RDW (11.5-15.5) % Lymphocytes # (1.0-4.8) k/uL PT (9.0-12.0) sec INR (<1.2) APTT (22.0-30.0) sec Fibrinogen (200-500) mg/dL D-Dimer (<0.60) mg/L FEU ABG pCO2 46 H (35-45) mmHg ABG pO2 71 L (83-108) mmHg ABG HCO3 26 H (21-25) mmol/L ABG Total CO2 28 H (19-24) mmol/L POC Glucose (mg/dL) (75-99) mg/dL Osmolality 331 H* (280-301) mosm/kg Ferritin 5001.0 H (10.0-291.0) ng/mL Lactate Dehydrogenase (313-618) U/L Creatine Kinase (30-135) U/L C-Reactive Protein (<10.0) mg/L 08/17/20 08/17/20 08/17/20 Range/Units 11:08 17:34 23:47 RBC (3.80-5.40) m/uL Hgb (11.4-16.0) gm/dL Hct (34.0-46.0) % MCV (80.0-100.0) fL RDW (11.5-15.5) % Lymphocytes # (1.0-4.8) k/uL PT (9.0-12.0) sec INR (<1.2) APTT (22.0-30.0) sec Fibrinogen (200-500) mg/dL D-Dimer (<0.60) mg/L FEU ABG pCO2 (35-45) mmHg ABG pO2 (83-108) mmHg ABG HCO3 (21-25) mmol/L ABG Total CO2 (19-24) mmol/L POC Glucose (mg/dL) 137 H 138 H 123 H (75-99) mg/dL Osmolality (280-301) mosm/kg Ferritin (10.0-291.0) ng/mL Lactate Dehydrogenase (313-618) U/L Creatine Kinase (30-135) U/L C-Reactive Protein (<10.0) mg/L 08/18/20 08/18/20 08/18/20 Range/Units 03:28 03:28 03:28 RBC 3.10 L (3.80-5.40) m/uL Hgb 10.0 L D (11.4-16.0) gm/dL Hct 32.3 L (34.0-46.0) % MCV 104.3 H (80.0-100.0) fL RDW 16.3 H (11.5-15.5) % Lymphocytes # 0.6 L (1.0-4.8) k/uL PT 30.6 H (9.0-12.0) sec INR 3.1 H (<1.2) APTT 59.9 H (22.0-30.0) sec Fibrinogen 572 H (200-500) mg/dL D-Dimer 1.09 H (<0.60) mg/L FEU ABG pCO2 (35-45) mmHg ABG pO2 (83-108) mmHg ABG HCO3 (21-25) mmol/L ABG Total CO2 (19-24) mmol/L POC Glucose (mg/dL) (75-99) mg/dL Osmolality (280-301) mosm/kg Ferritin (10.0-291.0) ng/mL Lactate Dehydrogenase 2721 H (313-618) U/L Creatine Kinase 22 L (30-135) U/L C-Reactive Protein 87.9 H (<10.0) mg/L 08/18/20 Range/Units 05:50 RBC (3.80-5.40) m/uL Hgb (11.4-16.0) gm/dL Hct (34.0-46.0) % MCV (80.0-100.0) fL RDW (11.5-15.5) % Lymphocytes # (1.0-4.8) k/uL PT (9.0-12.0) sec INR (<1.2) APTT (22.0-30.0) sec Fibrinogen (200-500) mg/dL D-Dimer (<0.60) mg/L FEU ABG pCO2 (35-45) mmHg ABG pO2 (83-108) mmHg ABG HCO3 (21-25) mmol/L ABG Total CO2 (19-24) mmol/L POC Glucose (mg/dL) 138 H (75-99) mg/dL Osmolality (280-301) mosm/kg Ferritin (10.0-291.0) ng/mL Lactate Dehydrogenase (313-618) U/L Creatine Kinase (30-135) U/L C-Reactive Protein (<10.0) mg/L Microbiology - Last 24 Hours (Table) 08/16/20 11:43 Blood Culture - Preliminary Blood No Growth after 24 hours 08/16/20 11:55 Blood Culture - Preliminary Blood No Growth after 24 hours
[2020-08-18 11:11] LABS: T4, Free (Free Thyroxine) 0.85 ng/dL (0.78-2.19)
[2020-08-18] MEDS: LEVOTHYROXINE IVP 100 MCG/5 ML VIAL IV SCH (11:13)
[2020-08-18] MEDS: DESMOPRESSIN ACETATE 4 MCG/ML VIAL (MDV) IV SCH ×2 (11:14→20:53)
[2020-08-18 11:27] LABS: Glucose,Whole Blood 157 mg/dL (75-99)
[2020-08-18 12:05] LABS: Appearance,Urine Turbid (Clear); Bacteria,Urine Many /hpf; Bilirubin,Urine Negative (Negative); Blood,Urine Small (Negative); Color,Urine Yellow; Glucose,Urine (UA) Negative (Negative); Ketones,Urine Negative (Negative); Leukocyte Esterase,Urine Large (Negative); Mucus,Urine Occasional /hpf; Nitrite,Urine Positive (Negative); PH, Urine 5.5 (5.0-8.0); Protein,Urine 1+ (Negative); RBC,Urine 5 /hpf (0-5); Specific Gravity,Urine 1.019 (1.001-1.035); Squamous Epithelial Cell,Urine 1 /hpf (0-4); Urobilinogen,Urine <2.0 mg/dL (<2.0); WBC,Urine 125 /hpf (0-5)
--- NOTE | 2020-08-18 13:39 | P.PN ---
Subjective Progress Note Date: 08/18/20 Principal diagnosis: Acute hypoxic respiratory failure secondary to covid 19 pneumonitis. Patient was reevaluated today on 08/18/2020, remains in the ICU, she seems to be now almost BiPAP dependent. Patient was admitted 2 days ago, she has covid 19 pneumonia. Patient was out of the window for remdesivir, received 2 units of convalescent plasma. Chest x-ray shows diffuse interstitial infiltrates. Overall pulmonary status is marginal at best. Patient seems to be quite ill, and I have a strong feeling that the patient may eventually require intubation and mechanical ventilation. O2 saturation is marginal. She is being evaluated by nephrology for hyponatremia felt to be secondary to lack of water intake. Patient is not polyuric, and her urine osmolality does not point to diabetes insipidus. Patient did have previous history of meningioma and left subdural hemorrhage she had previous left frontal craniotomy in July of 2020. Sodium level today went as high as 152, and I have switched the patient to D5W. Looking at the chart, patient had recent craniotomy at [facility], and she was discharged on 08/13/2020. Her other medical problems included history of DVT and pulmonary embolism, history of hypertension, fibromyalgia, and depression as well as hypothyroidism. Objective - Vital Signs Vital signs: Vital Signs Temp 97.8 F 08/18/20 11:00 Pulse 85 08/18/20 12:00 Resp 22 08/18/20 12:00 BP 122/63 08/18/20 12:00 Pulse Ox 92 L 08/18/20 12:00 Intake & Output 08/17/20 08/18/20 08/18/20 18:59 06:59 18:59 Intake Total 50 100 350 Output Total 675 640 320 Balance -625 -540 30 Weight 100.6 kg Intake: Intake, IV Titration 100 Amount levETIRAcetam IV 500 mg 100 In Sodium Chloride 0.9% 100 ml @ 400 mls/hr IVPB Q12HR [facility] Rx#:[id number] Oral 50 100 250 Output: Urine 675 640 320 Other: Voiding Method Indwelling Catheter Indwelling Catheter Indwelling Catheter - Exam Gen: This is a 63-year-old female. She is in the ICU on BiPAP. HEENT: Head is atraumatic, normocephalic. Pupils equal, round. Sclerae is anicteric. NECK: Supple. No JVD. No lymphadenopathy. No thyromegaly. LUNGS: Scattered rhonchi. No wheezes. Mild intercostal retractions. HEART: Regular rate and rhythm. 3/6 systolic murmur. ABDOMEN: Soft. Bowel sounds are present. No masses. No tenderness. Moses catheter in place. EXTREMITIES: No pedal edema. No calf tenderness. NEUROLOGICAL: Patient is awake, alert and oriented x3. Cranial nerves 2 through 12 are grossly intact. Mental status has improved. - Labs CBC & Chem 7: 08/18/20 03:28 08/18/20 09:00 Labs: Abnormal Lab Results - Last 24 Hours (Table) 08/17/20 08/17/20 08/18/20 Range/Units 17:34 23:47 03:28 RBC (3.80-5.40) m/uL Hgb (11.4-16.0) gm/dL Hct (34.0-46.0) % MCV (80.0-100.0) fL RDW (11.5-15.5) % Lymphocytes # (1.0-4.8) k/uL PT 30.6 H (9.0-12.0) sec INR 3.1 H (<1.2) APTT 59.9 H (22.0-30.0) sec Fibrinogen 572 H (200-500) mg/dL D-Dimer 1.09 H (<0.60) mg/L FEU Sodium (137-145) mmol/L Chloride (98-107) mmol/L Carbon Dioxide (22-30) mmol/L BUN (7-17) mg/dL Glucose (74-99) mg/dL POC Glucose (mg/dL) 138 H 123 H (75-99) mg/dL Magnesium (1.6-2.3) mg/dL Ferritin (10.0-291.0) ng/mL Lactate Dehydrogenase (313-618) U/L Creatine Kinase (30-135) U/L C-Reactive Protein (<10.0) mg/L TSH (0.465-4.680) mIU/L Urine Appearance (Clear) Urine Protein (Negative) Urine Blood (Negative) Urine Nitrite (Negative) Ur Leukocyte Esterase (Negative) Urine WBC (0-5) /hpf Urine WBC Clumps (None) /hpf Urine Bacteria (None) /hpf Urine Mucus (None) /hpf 08/18/20 08/18/20 08/18/20 Range/Units 03:28 03:28 05:50 RBC 3.10 L (3.80-5.40) m/uL Hgb 10.0 L D (11.4-16.0) gm/dL Hct 32.3 L (34.0-46.0) % MCV 104.3 H (80.0-100.0) fL RDW 16.3 H (11.5-15.5) % Lymphocytes # 0.6 L (1.0-4.8) k/uL PT (9.0-12.0) sec INR (<1.2) APTT (22.0-30.0) sec Fibrinogen (200-500) mg/dL D-Dimer (<0.60) mg/L FEU Sodium (137-145) mmol/L Chloride (98-107) mmol/L Carbon Dioxide (22-30) mmol/L BUN (7-17) mg/dL Glucose (74-99) mg/dL POC Glucose (mg/dL) 138 H (75-99) mg/dL Magnesium (1.6-2.3) mg/dL Ferritin 6418.7 H (10.0-291.0) ng/mL Lactate Dehydrogenase 2721 H (313-618) U/L Creatine Kinase 22 L (30-135) U/L C-Reactive Protein 87.9 H (<10.0) mg/L TSH (0.465-4.680) mIU/L Urine Appearance (Clear) Urine Protein (Negative) Urine Blood (Negative) Urine Nitrite (Negative) Ur Leukocyte Esterase (Negative) Urine WBC (0-5) /hpf Urine WBC Clumps (None) /hpf Urine Bacteria (None) /hpf Urine Mucus (None) /hpf 08/18/20 08/18/20 08/18/20 Range/Units 09:00 09:00 09:00 RBC (3.80-5.40) m/uL Hgb (11.4-16.0) gm/dL Hct (34.0-46.0) % MCV (80.0-100.0) fL RDW (11.5-15.5) % Lymphocytes # (1.0-4.8) k/uL PT (9.0-12.0) sec INR (<1.2) APTT (22.0-30.0) sec Fibrinogen (200-500) mg/dL D-Dimer (<0.60) mg/L FEU Sodium 152 H (137-145) mmol/L Chloride 117 H (98-107) mmol/L Carbon Dioxide 31 H (22-30) mmol/L BUN 48 H (7-17) mg/dL Glucose 135 H (74-99) mg/dL POC Glucose (mg/dL) (75-99) mg/dL Magnesium 2.8 H (1.6-2.3) mg/dL Ferritin (10.0-291.0) ng/mL Lactate Dehydrogenase (313-618) U/L Creatine Kinase (30-135) U/L C-Reactive Protein (<10.0) mg/L TSH 0.305 L (0.465-4.680) mIU/L Urine Appearance (Clear) Urine Protein (Negative) Urine Blood (Negative) Urine Nitrite (Negative) Ur Leukocyte Esterase (Negative) Urine WBC (0-5) /hpf Urine WBC Clumps (None) /hpf Urine Bacteria (None) /hpf Urine Mucus (None) /hpf 08/18/20 08/18/20 Range/Units 10:08 11:26 RBC (3.80-5.40) m/uL Hgb (11.4-16.0) gm/dL Hct (34.0-46.0) % MCV (80.0-100.0) fL RDW (11.5-15.5) % Lymphocytes # (1.0-4.8) k/uL PT (9.0-12.0) sec INR (<1.2) APTT (22.0-30.0) sec Fibrinogen (200-500) mg/dL D-Dimer (<0.60) mg/L FEU Sodium (137-145) mmol/L Chloride (98-107) mmol/L Carbon Dioxide (22-30) mmol/L BUN (7-17) mg/dL Glucose (74-99) mg/dL POC Glucose (mg/dL) 157 H (75-99) mg/dL Magnesium (1.6-2.3) mg/dL Ferritin (10.0-291.0) ng/mL Lactate Dehydrogenase (313-618) U/L Creatine Kinase (30-135) U/L C-Reactive Protein (<10.0) mg/L TSH (0.465-4.680) mIU/L Urine Appearance Turbid H (Clear) Urine Protein 1+ H (Negative) Urine Blood Small H (Negative) Urine Nitrite Positive H (Negative) Ur Leukocyte Esterase Large H (Negative) Urine WBC 125 H (0-5) /hpf Urine WBC Clumps Few H (None) /hpf Urine Bacteria Many H (None) /hpf Urine Mucus Occasional H (None) /hpf Microbiology - Last 24 Hours (Table) 08/16/20 11:43 Blood Culture - Preliminary Blood No Growth after 24 hours 08/16/20 11:55 Blood Culture - Preliminary Blood No Growth after 24 hours Assessment and Plan Assessment: Impression: Acute hypoxic respiratory failure secondary tocovid 19 and pneumonia. Recent history of hemorrhagic stroke with left subdural hematoma status post left frontal craniotomy Acute toxic metabolic encephalopathy Mild hypernatremia, clearly not related to diabetes insipidus based on the urinary findings. However the patient will improve with liberalizing free water but no need for DDAVP. History of pulmonary embolism and DVT. On Lovenox. History of underlying coronary artery disease. Benign essential hypertension. Hypothyroidism. Dyslipidemia. Recommendation: Continue BiPAP. And titrate accordingly. If the patient's condition deteriorates, may require intubation and mechanical ventilation. We'll arrange for PICC line placement and this patient. Continue the Covid 19 cocktail. Continue Solu-Medrol. Continue free water. Continue GI and DVT prophylaxis. Continue Lovenox. Overall prognosis remains poor and guarded. Critical care time is over 30 minutes. Time with Patient: Greater than 30
[2020-08-18 17:51] LABS: Glucose,Whole Blood 124 mg/dL (75-99)
[2020-08-18] MEDS: MELATONIN 5 MG TABLET PO SCH (20:55)
[2020-08-19 00:05] LABS: Glucose,Whole Blood 225 mg/dL (75-99)
[2020-08-19] MEDS: methylPREDNISolone SOD SUCCI 125 MG/2 ML VIAL IV SCH ×4 (00:16→18:33)
[2020-08-19] MEDS: INSULIN ASPART (NovoLOG) 100 UNIT/ML VIAL SQ SCH ×4 (00:16→18:26)
[2020-08-19 05:43] LABS: Glucose,Whole Blood 174 mg/dL (75-99)
[2020-08-19 05:52] LABS: Basophils % (A) 1 %; Eosinophils % (A) 0 %; HCT 28.4 % (34.0-46.0); HGB 9.2 gm/dL (11.4-16.0); Lymphocytes # (A) 0.5 k/uL (1.0-4.8); Lymphocytes % (A) 8 %; MCHC 32.4 g/dL (31.0-37.0); MCV 101.8 fL (80.0-100.0); Macrocytosis Slight; Mean Platelet Volume 8.5; Monocytes # (A) 0.2 k/uL (0-1.0); Monocytes % (A) 3 %; Neutrophils # (A) 5.7 k/uL (1.3-7.7); Neutrophils % (A) 87 %; Platelet Count 161 k/uL (150-450); RBC 2.79 m/uL (3.80-5.40); RDW 15.7 % (11.5-15.5); WBC 6.5 k/uL (3.8-10.6)
[2020-08-19 06:06] LABS: D-Dimer 2.63 mg/L FEU (<0.60); INR 4.1 (<1.2); Prothrombin Time 39.7 sec (9.0-12.0)
[2020-08-19 06:08] LABS: Calcium 8.7 mg/dL (8.4-10.2); Potassium 3.7 mmol/L (3.5-5.1)
[2020-08-19] MEDS: DEXTROSE 5% IN WATER 1,000 ML IV SCH ×2 (09:57→13:29)
[2020-08-19] MEDS: ASCORBIC ACID 500 MG TAB PO SCH (10:11)
[2020-08-19] MEDS: VENLAFAXINE HCL ER 150 MG CAP PO SCH (10:14)
[2020-08-19] MEDS: ZINC SULFATE 220 MG CAP PO SCH (10:15)
[2020-08-19] MEDS: DOCUSATE 100 MG CAP PO SCH (10:15)
[2020-08-19] MEDS: THIAMINE 100 MG TAB PO SCH (10:15)
[2020-08-19] MEDS: CHOLECALCIFEROL 1,000 UNIT TAB PO SCH (10:16)
[2020-08-19] MEDS: FAMOTIDINE 20 MG/2 ML VIAL IV SCH ×2 (10:16→22:28)
[2020-08-19] MEDS: levETIRAcetam IV 500 MG in SODIUM CHLORIDE 0.9% 100 ML IVPB SCH ×2 (10:27→22:28)
--- NOTE | 2020-08-19 10:30 | XR ---
EXAMINATION TYPE: XR chest 1V DATE OF EXAM: 08/19/2020 COMPARISON: 08/18/2020 INDICATION: Covid TECHNIQUE: Single frontal view of the chest is obtained. FINDINGS: The heart size is normal. The pulmonary vasculature is normal. Diffuse increased opacity is present. This may have mild improvement. Findings are nonspecific and ca n be compatible with atypical pneumonia. IMPRESSION: 1. Slight improvement of diffuse infiltrate can be compatible with atypical pneumonia
[2020-08-19 10:46] LABS: Ferritin 3735.7 ng/mL (10.0-291.0)
--- NOTE | 2020-08-19 11:25 | P.PN ---
Subjective Patient is seen in follow-up for hyponatremia. Sodium level normal today. She is maintained on D5W at 60 mL an hour. She did receive DDAVP yesterday but was discontinued this morning. Patient is awake and alert. Oxygen is being weaned. No chest pain or shortness of breath. Vital signs are stable. General: The patient appeared well nourished and normally developed. HEENT: Head exam is unremarkable. Neck is without jugular venous distension. LUNGS: Breath sounds decreased. HEART: Rate and Rhythm are regular. ABDOMEN: Soft, nontender. EXTREMITITES: No edema. Objective - Vital Signs Vital signs: Vital Signs Temp 97.9 F 08/19/20 04:00 Pulse 73 08/19/20 11:00 Resp 33 H 08/19/20 11:00 BP 101/59 08/19/20 11:00 Pulse Ox 89 L 08/19/20 11:00 Intake & Output 08/18/20 08/19/20 08/19/20 18:59 06:59 18:59 Intake Total 1250 1400 400 Output Total 680 955 400 Balance 570 445 0 Weight 104.1 kg Intake: Intake, IV Titration 1000 720 400 Amount Dextrose 5% in Water 1, 900 720 300 000 ml @ 60 mls/hr IV . [id number] [facility] Rx#:[id number] levETIRAcetam IV 500 mg 100 100 In Sodium Chloride 0.9% 100 ml @ 400 mls/hr IVPB Q12HR [facility] Rx#:[id number] Oral 250 680 Output: Urine 680 955 400 Other: Voiding Method Indwelling Catheter Indwelling Catheter Indwelling Catheter - Labs CBC & Chem 7: 08/19/20 05:39 08/19/20 05:39 Labs: Abnormal Lab Results - Last 24 Hours (Table) 08/18/20 08/18/20 08/18/20 Range/Units 10:08 11:26 16:40 RBC (3.80-5.40) m/uL Hgb (11.4-16.0) gm/dL Hct (34.0-46.0) % MCV (80.0-100.0) fL RDW (11.5-15.5) % Lymphocytes # (1.0-4.8) k/uL PT (9.0-12.0) sec INR (<1.2) APTT (22.0-30.0) sec Fibrinogen (200-500) mg/dL D-Dimer (<0.60) mg/L FEU Sodium 146 H (137-145) mmol/L Chloride (98-107) mmol/L BUN (7-17) mg/dL Glucose (74-99) mg/dL POC Glucose (mg/dL) 157 H (75-99) mg/dL Osmolality (280-301) mosm/kg Ferritin (10.0-291.0) ng/mL Lactate Dehydrogenase (313-618) U/L Creatine Kinase (30-135) U/L C-Reactive Protein (<10.0) mg/L Urine Appearance Turbid H (Clear) Urine Protein 1+ H (Negative) Urine Blood Small H (Negative) Urine Nitrite Positive H (Negative) Ur Leukocyte Esterase Large H (Negative) Urine WBC 125 H (0-5) /hpf Urine WBC Clumps Few H (None) /hpf Urine Bacteria Many H (None) /hpf Urine Mucus Occasional H (None) /hpf 08/18/20 08/19/20 08/19/20 Range/Units 17:49 00:03 05:39 RBC (3.80-5.40) m/uL Hgb (11.4-16.0) gm/dL Hct (34.0-46.0) % MCV (80.0-100.0) fL RDW (11.5-15.5) % Lymphocytes # (1.0-4.8) k/uL PT 39.7 H (9.0-12.0) sec INR 4.1 H (<1.2) APTT 47.0 H (22.0-30.0) sec Fibrinogen 503 H (200-500) mg/dL D-Dimer 2.63 H (<0.60) mg/L FEU Sodium (137-145) mmol/L Chloride (98-107) mmol/L BUN (7-17) mg/dL Glucose (74-99) mg/dL POC Glucose (mg/dL) 124 H 225 H (75-99) mg/dL Osmolality (280-301) mosm/kg Ferritin (10.0-291.0) ng/mL Lactate Dehydrogenase (313-618) U/L Creatine Kinase (30-135) U/L C-Reactive Protein (<10.0) mg/L Urine Appearance (Clear) Urine Protein (Negative) Urine Blood (Negative) Urine Nitrite (Negative) Ur Leukocyte Esterase (Negative) Urine WBC (0-5) /hpf Urine WBC Clumps (None) /hpf Urine Bacteria (None) /hpf Urine Mucus (None) /hpf 08/19/20 08/19/20 08/19/20 Range/Units 05:39 05:39 05:39 RBC 2.79 L (3.80-5.40) m/uL Hgb 9.2 L (11.4-16.0) gm/dL Hct 28.4 L (34.0-46.0) % MCV 101.8 H (80.0-100.0) fL RDW 15.7 H (11.5-15.5) % Lymphocytes # 0.5 L (1.0-4.8) k/uL PT (9.0-12.0) sec INR (<1.2) APTT (22.0-30.0) sec Fibrinogen (200-500) mg/dL D-Dimer (<0.60) mg/L FEU Sodium (137-145) mmol/L Chloride 112 H (98-107) mmol/L BUN 42 H (7-17) mg/dL Glucose 171 H (74-99) mg/dL POC Glucose (mg/dL) (75-99) mg/dL Osmolality 313 H (280-301) mosm/kg Ferritin 3735.7 H (10.0-291.0) ng/mL Lactate Dehydrogenase 2437 H (313-618) U/L Creatine Kinase 21 L (30-135) U/L C-Reactive Protein 41.0 H (<10.0) mg/L Urine Appearance (Clear) Urine Protein (Negative) Urine Blood (Negative) Urine Nitrite (Negative) Ur Leukocyte Esterase (Negative) Urine WBC (0-5) /hpf Urine WBC Clumps (None) /hpf Urine Bacteria (None) /hpf Urine Mucus (None) /hpf 08/19/20 Range/Units 05:40 RBC (3.80-5.40) m/uL Hgb (11.4-16.0) gm/dL Hct (34.0-46.0) % MCV (80.0-100.0) fL RDW (11.5-15.5) % Lymphocytes # (1.0-4.8) k/uL PT (9.0-12.0) sec INR (<1.2) APTT (22.0-30.0) sec Fibrinogen (200-500) mg/dL D-Dimer (<0.60) mg/L FEU Sodium (137-145) mmol/L Chloride (98-107) mmol/L BUN (7-17) mg/dL Glucose (74-99) mg/dL POC Glucose (mg/dL) 174 H (75-99) mg/dL Osmolality (280-301) mosm/kg Ferritin (10.0-291.0) ng/mL Lactate Dehydrogenase (313-618) U/L Creatine Kinase (30-135) U/L C-Reactive Protein (<10.0) mg/L Urine Appearance (Clear) Urine Protein (Negative) Urine Blood (Negative) Urine Nitrite (Negative) Ur Leukocyte Esterase (Negative) Urine WBC (0-5) /hpf Urine WBC Clumps (None) /hpf Urine Bacteria (None) /hpf Urine Mucus (None) /hpf Microbiology - Last 24 Hours (Table) 08/18/20 10:08 Urine Culture - Preliminary Urine,Voided 08/16/20 11:55 Blood Culture - Preliminary Blood No Growth after 48 hours 08/16/20 11:43 Blood Culture - Preliminary Blood No Growth after 48 hours Assessment and Plan Plan: Assessment: 1. Hypernatremia secondary to lack of oral water intake. Patient is not polyuric. Urine osmolality 631 and urine random sodium 47. No evidence of diabetes insipidus. Sodium level is improving. 2. Acute hypoxic respiratory failure secondary to covid 19 pneumonia. 3. History of meningioma and left subdural hemorrhage status post left frontal craniotomy in July 2020. 4. Benign hypertension. Stable. Plan: Maintain D5W at 60 mL an hour. Encourage oral intake, including free water. DDAVP discontinued.
[2020-08-19 12:00] LABS: Glucose,Whole Blood 146 mg/dL (75-99)
[2020-08-19] MEDS: LEVOTHYROXINE IVP 100 MCG/5 ML VIAL IV SCH (12:09)
[2020-08-19] MEDS: ENOXAPARIN 80 MG/0.8 ML SYRINGE SQ SCH ×2 (12:09→22:28)
--- NOTE | 2020-08-19 13:54 | P.PN ---
Subjective Progress Note Date: 08/19/20 HISTORY OF PRESENT ILLNESS Ms. Sutherland is a 64 years old female patient of Dr. Siu with past medical history of coronary artery disease, hypertension, history of DVT and pul monary embolism in 2002, fibromyalgia, asthma who presented to the hospital with worsening shortness of breath associated with change in mental status for the past 24 hours. Patient was in [facility] for subdural hemorrhage associated with meningioma in the left frontal lobe. Patient underwent left frontal craniotomy and was discharged on 08/13 on seizure precaution medication and pain medication. Patient's daughter is an RN who checked her oxygen at home which was saturating at 38%. Patient was brought to the hospital by EMS as patient was found unresponsive with her oxygen in the 40s and was placed on a BiPAP. Patient is unable to provide any history as she Is confused. Called patient's who stated that patient was doing well post discharge until last night when she became short of breath and confused. Patient did have acute stroke from the subdural hemorrhage causing right arm and right leg weakness associated with a phase ER. Patient was in the hospital for 6 weeks and recovered from both right upper and lower extremity weakness and a phasia. Patient was smoking at home post discharge. She was evaluated by her daughter who is an RN who insisted on calling EMS as she did not appear well.On evaluation in the ER patient was found to have bilateral groundglass opacities concerning for call with pneumonia. Vital suggested temp of 97.9 pulse 81 blood pressure 122/78 respiratory rate of 20. Call with 19 was positive. WBC 5.8 hemoglobin 10.4. ABG was obtained with a pO2 of 55 pCO2 of 44 . Patient's sodium is 146 chloride 117 BUN 48 creatinine 1.01 glucose 110 AST 74 8079 magnesium 2.5 proBNP 1560 LDH 2556 troponin negative 1 CRP 220. INR is jose vated at 2.6. Pulmonary consult was placed. Patient placed on Solu-Medrol 60 every 6, zinc sulfide 220 vitamin C 1000 mg daily. EKG was normal sinus rhythm with no ST or segment depression or elevation. 1/3 patient assessed in ICU currently on BiPAP. Patient is oriented 2. Patient was not able to tolerate being off BiPAP for even a few minutes to take her medications. Patient is currently on 100% FiO2 on BiPAP saturating at 91- 92% vitals otherwise stable temp of 98.8 pulse 75 respiratory rate 27 blood pressure 129/53. Patient has a drop of hemoglobin from 10.4-8 today with MCV 103. INR is 1.8 subtherapeutic, elevated APTT 50 in origin and d-dimer 0.97. PCO2 is 46 pO2 71 bicarb 28 with a pH of 7.37, sodium 146 chloride 1:15, BUN 48 creatinine 0.87 glucose 125. Alkaline phosphatase has increased to 215 from 1:15, AST increased from 7 to 151 ALT increased from 79 to 201. Ultrasound abdomen ordered to evaluate for liver and gallbladder. 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 Patient is unable to take oral medication will switch patient's medication to IV today 08/18: Patient remains in the intensive care unit on BiPAP. She maintains a pulse ox of 91-96% but quickly drops if BiPAP is removed. She's been afebrile, heart rate 73, blood pressure 146/75. Repeat blood work reveals WBC 6.3, hemoglobin 10, platelet count 173. INR is 3.1. Fibrinogen 572, d-dimer 1.09. Sodium 152, potassium 4.4, chloride 117, CO2 31, BUN 48 and creatinine 0.89. TSH 0.305. ProBNP 1290. C-reactive protein 87.9. CK 22, LDH 2721. Blood sugars running in the 120s and 130s. Repeat chest x-ray reveals continued bilateral airspace disease. Patient has been seen by neurology with recommendations to continue Keppra 500 mg twice daily for seizure prophylaxis. Records from [facility] to be obtained. Patient was started on desmopressin 0.05 mg 1 tablet twice a day for central diabetes insipidus. Vitamin B-12 and folate levels ordered. TSH and ammonia level. Thiamine was started. Patient was also seen by nephrology for hypernatremia and started on normal saline at 50 mL per hour for now. 08/19: Patient remains in the intensive care unit oxygen is down to 80% on BiPAP with pulse ox running between 89 and 92. She has been afebrile, heart rate 73, blood pressure 101/59. Pulse ox drops if BiPAP is removed. We will start a soft diet as she is stating she is hungry. Midline was placed yesterday. Repe at blood work reveals WBC 6.5, hemoglobin 9.2, platelet count 161. D-dimer 2.63, fibrinogen 503, INR 4.1. Creatinine 0.81. Blood sugars run between 146 and 225. Repeat chest x-ray reveals slight improvement of diffuse infiltrate can be compatible with atypical pneumonia. Patient received DDAVP yesterday. She is currently on D5W at 60 mL per hour. She remains on Solu-Medrol 60 mg IV every 6 hours. REVIEW OF SYSTEMS Constitutional: No fever, no chills, no night sweats. No weight change. Reports weakness, reports fatigue, reports daytime sleepiness. EENT: No headache. No blurred vision or double vision, no loss of vision. No loss of Hearing, no ringing in the ears, no dizziness. No nasal drainage or congestion. No epistaxis. No sore throat. Lungs: Reports continued shortness of breath, reports cough, no sputum production. No wheezing. Cardiovascular: No chest pain, no lower extremity edema. No palpitations. No paroxysmal nocturnal dyspnea. No orthopnea. No lightheadedness or dizziness. No syncopal episodes. Abdominal: No abdominal pain. No nausea, vomiting. No diarrhea. No constipation. No bloody or tarry stools. Reports increased appetite. Genitourinary: No dysuria, increased frequency, urgency. No urinary retention. Musculoskeletal: No myalgias. No muscle weakness, no gait dysfunction, no frequent falls. No back pain. No neck pain. Integumentary: No wounds, no lesions. No rash or pruritus. No unusual bruising. No change in hair or nails. Neurologic: No aphasia. No facial droop. Reported change in mentation-improving. No head injury. No headache. No paralysis. No paresthesia. Psychiatric: No depression. No anxiety. No mood swings. Endocrine: No abnormal blood sugars. No weight change. PHYSICAL EXAMINATION Gen: This is a 63-year-old female. She is in the ICU on BiPAP. No acute distress. HEENT: Head is atraumatic, normocephalic. Pupils equal, round. Sclerae is anicteric. NECK: Supple. No JVD. No lymphadenopathy. No thyromegaly. LUNGS: Scattered rhonchi. No wheezes. Mild intercostal retractions. HEART: Regular rate and rhythm. 3/6 systolic murmur. ABDOMEN: Soft. Bowel sounds are present. No masses. No tenderness. Moses catheter in place. EXTREMITIES: No pedal edema. No calf tenderness. NEUROLOGICAL: Patient is awake, alert and oriented x3. Cranial nerves 2 through 12 are grossly intact. Mental status has improved. ASSESSMENT AND PLAN 1. Acute hypoxic respiratory failure secondary to COVID-19 Pneumonia and COPD exacerbation. Consult with pulmonary medicine appreciated. Continue oxygen therapy currently on BiPAP 2. COVID-19 pneumonia. Continue vitamin C, vitamin D, zinc, Solu-Medrol 60 mg IV every 6 hours, Lovenox. 3. COPD exacerbation. Continue Solu-Medrol 60 mg IV every 6 hours, pulmonary consult appreciated. 4. Acute hemorrhagic stroke with acute left subdural hemorrhage with benign tumor status post left frontal craniotomy. Patient was discharged on August 13 from [facility]/rehab facility. Continue Keppra and steroids. Consult with neurology appreciated. 5. Acute toxic metabolic encephalopathy secondary to Covid 19. Neurology consult appreciated. Continue Keppra for prophylaxis seizure activity. Hold Malden and Lyrica. 6. Central diabetes insipidus with hypernatremia. 7. History of pulmonary embolism and DVT. Continue Lovenox 80 mg subcu every 12 hours. Hold Coumadin. 8. History of coronary artery disease. Continue Lopressor 9. Hypertension. Continue Lopressor 5 mg IV push every 6 hours as needed, hydralazine 10 mg IV push every 6 hours as needed 10. Hypothyroidism. Patient will be resumed on levothyroxine 25 g IV daily. 11. Hyperlipidemia. Hold pravastatin. 12. Recurrent depression. Continue venlafaxine 150 mg oral daily. 13. GI prophylaxis. Pepcid 20 mg IV every 12 hours. 14. DVT prophylaxis. Lovenox subcu. DISCHARGE PLAN To be determined. Impression and plan of care have been directed as dictated by the signing physician. Karyn Tamayo nurse practitioner acting as scribe for signing physician. Objective - Vital Signs Vital signs: Vital Signs Temp 97.9 F 08/19/20 04:00 Pulse 75 08/19/20 07:00 Resp 18 08/19/20 07:00 BP 151/72 08/19/20 07:00 Pulse Ox 92 L 08/19/20 07:00 Intake & Output 08/18/20 08/19/20 08/19/20 18:59 06:59 18:59 Intake Total 1250 1400 120 Output Total 680 955 225 Balance 570 445 -105 Weight 104.1 kg Intake: Intake, IV Titration 1000 720 120 Amount Dextrose 5% in Water 1, 900 720 120 000 ml @ 60 mls/hr IV . [id number] [facility] Rx#:[id number] levETIRAcetam IV 500 mg 100 In Sodium Chloride 0.9% 100 ml @ 400 mls/hr IVPB Q12HR [facility] Rx#:[id number] Oral 250 680 Output: Urine 680 955 225 Other: Voiding Method Indwelling Catheter Indwelling Catheter - Labs CBC & Chem 7: 08/19/20 05:39 08/19/20 05:39 Labs: Abnormal Lab Results - Last 24 Hours (Table) 08/18/20 08/18/20 08/18/20 Range/Units 03:28 09:00 09:00 RBC (3.80-5.40) m/uL Hgb (11.4-16.0) gm/dL Hct (34.0-46.0) % MCV (80.0-100.0) fL RDW (11.5-15.5) % Lymphocytes # (1.0-4.8) k/uL PT (9.0-12.0) sec INR (<1.2) APTT (22.0-30.0) sec Fibrinogen (200-500) mg/dL D-Dimer (<0.60) mg/L FEU Sodium 152 H (137-145) mmol/L Chloride 117 H (98-107) mmol/L Carbon Dioxide 31 H (22-30) mmol/L BUN 48 H (7-17) mg/dL Glucose 135 H (74-99) mg/dL POC Glucose (mg/dL) (75-99) mg/dL Osmolality (280-301) mosm/kg Magnesium (1.6-2.3) mg/dL Ferritin 6418.7 H (10.0-291.0) ng/mL Lactate Dehydrogenase (313-618) U/L Creatine Kinase (30-135) U/L C-Reactive Protein (<10.0) mg/L TSH 0.305 L (0.465-4.680) mIU/L Urine Appearance (Clear) Urine Protein (Negative) Urine Blood (Negative) Urine Nitrite (Negative) Ur Leukocyte Esterase (Negative) Urine WBC (0-5) /hpf Urine WBC Clumps (None) /hpf Urine Bacteria (None) /hpf Urine Mucus (None) /hpf 08/18/20 08/18/20 08/18/20 Range/Units 09:00 10:08 11:26 RBC (3.80-5.40) m/uL Hgb (11.4-16.0) gm/dL Hct (34.0-46.0) % MCV (80.0-100.0) fL RDW (11.5-15.5) % Lymphocytes # (1.0-4.8) k/uL PT (9.0-12.0) sec INR (<1.2) APTT (22.0-30.0) sec Fibrinogen (200-500) mg/dL D-Dimer (<0.60) mg/L FEU Sodium (137-145) mmol/L Chloride (98-107) mmol/L Carbon Dioxide (22-30) mmol/L BUN (7-17) mg/dL Glucose (74-99) mg/dL POC Glucose (mg/dL) 157 H (75-99) mg/dL Osmolality (280-301) mosm/kg Magnesium 2.8 H (1.6-2.3) mg/dL Ferritin (10.0-291.0) ng/mL Lactate Dehydrogenase (313-618) U/L Creatine Kinase (30-135) U/L C-Reactive Protein (<10.0) mg/L TSH (0.465-4.680) mIU/L Urine Appearance Turbid H (Clear) Urine Protein 1+ H (Negative) Urine Blood Small H (Negative) Urine Nitrite Positive H (Negative) Ur Leukocyte Esterase Large H (Negative) Urine WBC 125 H (0-5) /hpf Urine WBC Clumps Few H (None) /hpf Urine Bacteria Many H (None) /hpf Urine Mucus Occasional H (None) /hpf 08/18/20 08/18/20 08/19/20 Range/Units 16:40 17:49 00:03 RBC (3.80-5.40) m/uL Hgb (11.4-16.0) gm/dL Hct (34.0-46.0) % MCV (80.0-100.0) fL RDW (11.5-15.5) % Lymphocytes # (1.0-4.8) k/uL PT (9.0-12.0) sec INR (<1.2) APTT (22.0-30.0) sec Fibrinogen (200-500) mg/dL D-Dimer (<0.60) mg/L FEU Sodium 146 H (137-145) mmol/L Chloride (98-107) mmol/L Carbon Dioxide (22-30) mmol/L BUN (7-17) mg/dL Glucose (74-99) mg/dL POC Glucose (mg/dL) 124 H 225 H (75-99) mg/dL Osmolality (280-301) mosm/kg Magnesium (1.6-2.3) mg/dL Ferritin (10.0-291.0) ng/mL Lactate Dehydrogenase (313-618) U/L Creatine Kinase (30-135) U/L C-Reactive Protein (<10.0) mg/L TSH (0.465-4.680) mIU/L Urine Appearance (Clear) Urine Protein (Negative) Urine Blood (Negative) Urine Nitrite (Negative) Ur Leukocyte Esterase (Negative) Urine WBC (0-5) /hpf Urine WBC Clumps (None) /hpf Urine Bacteria (None) /hpf Urine Mucus (None) /hpf 08/19/20 08/19/20 08/19/20 Range/Units 05:39 05:39 05:39 RBC 2.79 L (3.80-5.40) m/uL Hgb 9.2 L (11.4-16.0) gm/dL Hct 28.4 L (34.0-46.0) % MCV 101.8 H (80.0-100.0) fL RDW 15.7 H (11.5-15.5) % Lymphocytes # 0.5 L (1.0-4.8) k/uL PT 39.7 H (9.0-12.0) sec INR 4.1 H (<1.2) APTT 47.0 H (22.0-30.0) sec Fibrinogen 503 H (200-500) mg/dL D-Dimer 2.63 H (<0.60) mg/L FEU Sodium (137-145) mmol/L Chloride 112 H (98-107) mmol/L Carbon Dioxide (22-30) mmol/L BUN 42 H (7-17) mg/dL Glucose 171 H (74-99) mg/dL POC Glucose (mg/dL) (75-99) mg/dL Osmolality (280-301) mosm/kg Magnesium (1.6-2.3) mg/dL Ferritin (10.0-291.0) ng/mL Lactate Dehydrogenase 2437 H (313-618) U/L Creatine Kinase 21 L (30-135) U/L C-Reactive Protein 41.0 H (<10.0) mg/L TSH (0.465-4.680) mIU/L Urine Appearance (Clear) Urine Protein (Negative) Urine Blood (Negative) Urine Nitrite (Negative) Ur Leukocyte Esterase (Negative) Urine WBC (0-5) /hpf Urine WBC Clumps (None) /hpf Urine Bacteria (None) /hpf Urine Mucus (None) /hpf 08/19/20 08/19/20 Range/Units 05:39 05:40 RBC (3.80-5.40) m/uL Hgb (11.4-16.0) gm/dL Hct (34.0-46.0) % MCV (80.0-100.0) fL RDW (11.5-15.5) % Lymphocytes # (1.0-4.8) k/uL PT (9.0-12.0) sec INR (<1.2) APTT (22.0-30.0) sec Fibrinogen (200-500) mg/dL D-Dimer (<0.60) mg/L FEU Sodium (137-145) mmol/L Chloride (98-107) mmol/L Carbon Dioxide (22-30) mmol/L BUN (7-17) mg/dL Glucose (74-99) mg/dL POC Glucose (mg/dL) 174 H (75-99) mg/dL Osmolality 313 H (280-301) mosm/kg Magnesium (1.6-2.3) mg/dL Ferritin (10.0-291.0) ng/mL Lactate Dehydrogenase (313-618) U/L Creatine Kinase (30-135) U/L C-Reactive Protein (<10.0) mg/L TSH (0.465-4.680) mIU/L Urine Appearance (Clear) Urine Protein (Negative) Urine Blood (Negative) Urine Nitrite (Negative) Ur Leukocyte Esterase (Negative) Urine WBC (0-5) /hpf Urine WBC Clumps (None) /hpf Urine Bacteria (None) /hpf Urine Mucus (None) /hpf Microbiology - Last 24 Hours (Table) 08/18/20 10:08 Urine Culture - Preliminary Urine,Voided 08/16/20 11:55 Blood Culture - Preliminary Blood No Growth after 48 hours 08/16/20 11:43 Blood Culture - Preliminary Blood No Growth after 48 hours
--- NOTE | 2020-08-19 14:16 | P.PN ---
Subjective Progress Note Date: 08/19/20 Principal diagnosis: Acute hypoxic respiratory failure secondary to covid 19 pneumonitis. Patient was reevaluated today on 08/18/2020, remains in the ICU, she seems to be now almost BiPAP dependent. Patient was admitted 2 days ago, she has covid 19 pneumonia. Patient was out of the window for remdesivir, received 2 units of convalescent plasma. Chest x-ray shows diffuse interstitial infiltrates. Overall pulmonary status is marginal at best. Patient seems to be quite ill, and I have a strong feeling that the patient may eventually require intubation and mechanical ventilation. O2 saturation is marginal. She is being evaluated by nephrology for hyponatremia felt to be secondary to lack of water intake. Patient is not polyuric, and her urine osmolality does not point to diabetes insipidus. Patient did have previous history of meningioma and left subdural hemorrhage she had previous left frontal craniotomy in July of 2020. Sodium level today went as high as 152, and I have switched the patient to D5W. Looking at the chart, patient had recent craniotomy at [facility], and she was discharged on 08/13/2020. Her other medical problems included history of DVT and pulmonary embolism, history of hypertension, fibromyalgia, and depression as well as hypothyroidism. Reevaluated today on 08/19/2020, patient remains in the ICU, presently on BiPAP, with IPAP of 12 and EPAP 5, FiO2 80% I cut it down to 70%. She is on D5W at 60 mL/h. Clearly her urine tests and her osmolality as well as specific gravity do not point to diabetes insipidus. Sodium is correcting nicely with D5W. Has discontinued DDAVP. Patient is being treated for acute hypoxic respiratory failure secondary to Covid 19 pneumonitis. Patient was outside the window for remdesivir but she did receive 2 units of convalescent plasma. Overall I believe the patient is making slight improvement, hence I was able to titrate her FiO2 down to 70%. Remains on Lovenox 80 mg subcu twice a day and she is also on Solu-Medrol. She is also on the Covid 19 cocktails. Objective - Vital Signs Vital signs: Vital Signs Temp 97.9 F 08/19/20 04:00 Pulse 74 08/19/20 13:00 Resp 27 H 08/19/20 13:00 BP 136/76 08/19/20 13:00 Pulse Ox 90 L 08/19/20 13:00 Intake & Output 08/18/20 08/19/20 08/19/20 18:59 06:59 18:59 Intake Total 1250 1400 580 Output Total 680 955 575 Balance 570 445 5 Weight 104.1 kg Intake: Intake, IV Titration 1000 720 580 Amount Dextrose 5% in Water 1, 900 720 480 000 ml @ 60 mls/hr IV . [id number] TABATHA Rx#:[id number] levETIRAcetam IV 500 mg 100 100 In Sodium Chloride 0.9% 100 ml @ 400 mls/hr IVPB Q12HR TABATHA Rx#:[id number] Oral 250 680 Output: Urine 680 955 575 Other: Voiding Method Indwelling Catheter Indwelling Catheter Indwelling Catheter - Exam Gen: This is a 63-year-old female. She is in the ICU on BiPAP. 07/19/80% HEENT: Head is atraumatic, normocephalic. Pupils equal, round. Sclerae is anicteric. NECK: Supple. No JVD. No lymphadenopathy. No thyromegaly. LUNGS: Scattered rhonchi. No wheezes. Mild intercostal retractions. HEART: Regular rate and rhythm. 3/6 systolic murmur. ABDOMEN: Soft. Bowel sounds are present. No masses. No tenderness. Moses catheter in place. EXTREMITIES: No pedal edema. No calf tenderness. NEUROLOGICAL: Patient is awake, alert and oriented x3. Cranial nerves 2 through 12 are grossly intact. - Labs CBC & Chem 7: 08/19/20 05:39 08/19/20 05:39 Labs: Abnormal Lab Results - Last 24 Hours (Table) 08/18/20 08/18/20 08/19/20 Range/Units 16:40 17:49 00:03 RBC (3.80-5.40) m/uL Hgb (11.4-16.0) gm/dL Hct (34.0-46.0) % MCV (80.0-100.0) fL RDW (11.5-15.5) % Lymphocytes # (1.0-4.8) k/uL PT (9.0-12.0) sec INR (<1.2) APTT (22.0-30.0) sec Fibrinogen (200-500) mg/dL D-Dimer (<0.60) mg/L FEU Sodium 146 H (137-145) mmol/L Chloride (98-107) mmol/L BUN (7-17) mg/dL Glucose (74-99) mg/dL POC Glucose (mg/dL) 124 H 225 H (75-99) mg/dL Osmolality (280-301) mosm/kg Ferritin (10.0-291.0) ng/mL Lactate Dehydrogenase (313-618) U/L Creatine Kinase (30-135) U/L C-Reactive Protein (<10.0) mg/L 08/19/20 08/19/20 08/19/20 Range/Units 05:39 05:39 05:39 RBC 2.79 L (3.80-5.40) m/uL Hgb 9.2 L (11.4-16.0) gm/dL Hct 28.4 L (34.0-46.0) % MCV 101.8 H (80.0-100.0) fL RDW 15.7 H (11.5-15.5) % Lymphocytes # 0.5 L (1.0-4.8) k/uL PT 39.7 H (9.0-12.0) sec INR 4.1 H (<1.2) APTT 47.0 H (22.0-30.0) sec Fibrinogen 503 H (200-500) mg/dL D-Dimer 2.63 H (<0.60) mg/L FEU Sodium (137-145) mmol/L Chloride 112 H (98-107) mmol/L BUN 42 H (7-17) mg/dL Glucose 171 H (74-99) mg/dL POC Glucose (mg/dL) (75-99) mg/dL Osmolality (280-301) mosm/kg Ferritin 3735.7 H (10.0-291.0) ng/mL Lactate Dehydrogenase 2437 H (313-618) U/L Creatine Kinase 21 L (30-135) U/L C-Reactive Protein 41.0 H (<10.0) mg/L 08/19/20 08/19/20 08/19/20 Range/Units 05:39 05:40 11:59 RBC (3.80-5.40) m/uL Hgb (11.4-16.0) gm/dL Hct (34.0-46.0) % MCV (80.0-100.0) fL RDW (11.5-15.5) % Lymphocytes # (1.0-4.8) k/uL PT (9.0-12.0) sec INR (<1.2) APTT (22.0-30.0) sec Fibrinogen (200-500) mg/dL D-Dimer (<0.60) mg/L FEU Sodium (137-145) mmol/L Chloride (98-107) mmol/L BUN (7-17) mg/dL Glucose (74-99) mg/dL POC Glucose (mg/dL) 174 H 146 H (75-99) mg/dL Osmolality 313 H (280-301) mosm/kg Ferritin (10.0-291.0) ng/mL Lactate Dehydrogenase (313-618) U/L Creatine Kinase (30-135) U/L C-Reactive Protein (<10.0) mg/L Microbiology - Last 24 Hours (Table) 08/16/20 11:55 Blood Culture - Preliminary Blood No Growth after 72 hours 08/16/20 11:43 Blood Culture - Preliminary Blood No Growth after 72 hours 08/18/20 10:08 Urine Culture - Preliminary Urine,Voided Assessment and Plan Assessment: Impression: Acute hypoxic respiratory failure secondary tocovid 19 and pneumonia. Recent history of hemorrhagic stroke with left subdural hematoma status post left frontal craniotomy Acute toxic metabolic encephalopathy Mild hypernatremia, clearly not related to diabetes insipidus based on the urinary findings. However the patient will improve with liberalizing free water but no need for DDAVP. History of pulmonary embolism and DVT. On Lovenox. History of underlying coronary artery disease. Benign essential hypertension. Hypothyroidism. Dyslipidemia. Recommendation: Continue BiPAP. Decreased FiO2 down to 70%, remains on 07/19 PICC line was placed yesterday. Continue the Covid 19 cocktail. Continue Solu-Medrol. Continue free water. Continue GI and DVT prophylaxis. Continue Lovenox. Overall prognosis remains poor and guarded. Critical care time is over 30 minutes. Time with Patient: Greater than 30
--- NOTE | 2020-08-19 17:00 | P.PN ---
Subjective Progress Note Date: 08/19/20 The patient stated that she's doing better today compared that to her initial presentation. He denies of any new weakness numbness or visual disturbance. Desmopressin was discontinued by the ICU team since it was not felt she has the central diabetes insepdius by the senior teller as well as ICU which I'm in agreement. Objective - Vital Signs Vital signs: Vital Signs Temp 97.9 F 08/19/20 04:00 Pulse 70 08/19/20 14:00 Resp 23 08/19/20 14:00 BP 144/78 08/19/20 14:00 Pulse Ox 90 L 08/19/20 13:00 Intake & Output 08/18/20 08/19/20 08/19/20 18:59 06:59 18:59 Intake Total 1250 1400 580 Output Total 680 955 575 Balance 570 445 5 Weight 104.1 kg Intake: Intake, IV Titration 1000 720 580 Amount Dextrose 5% in Water 1, 900 720 480 000 ml @ 60 mls/hr IV . [id number] TABATHA Rx#:[id number] levETIRAcetam IV 500 mg 100 100 In Sodium Chloride 0.9% 100 ml @ 400 mls/hr IVPB Q12HR TABATHA Rx#:[id number] Oral 250 680 Output: Urine 680 955 575 Other: Voiding Method Indwelling Catheter Indwelling Catheter Indwelling Catheter - Exam GENERAL: The patient is lying in bed and is not in acute distress. NEUROLOGICAL: Limited since on BIPAP machine. Higher mental function: The patient is awake, alert, oriented to self and place. Regarding to time she correctly answered it to options. Patient is following commands. No aphasia and no neglect. Cranial nerves: The pupils are round, equal and reactive to light and accommodation. Visual mccauley are full to confrontation throughout. Extraocular movement is intact no nystagmus is noted. Facial sensation is normal to touch throughout. The facial strength could not fully assess since had mask for respiratory treatment but no focal deficit seen with mask on. Hearing is normal bilaterally to hand rub. Shoulder shrug is normal bilaterally. Motor: Gait is deferred because of patient's condition. The strength is right upper extremity of right elbow flexion is 4+ while right hand fur farmer is 5-. Otherwise strength is 5/5 throughout. Normal tone and bulk. Sensation: Sensation is normal to touch throughout. Reflexes (right/left): 3+ right patellar otherwise 2+ throughout. Plantars are downgoing bilaterally. - Labs CBC & Chem 7: 08/19/20 05:39 08/19/20 05:39 Labs: Abnormal Lab Results - Last 24 Hours (Table) 08/18/20 08/18/20 08/19/20 Range/Units 16:40 17:49 00:03 RBC (3.80-5.40) m/uL Hgb (11.4-16.0) gm/dL Hct (34.0-46.0) % MCV (80.0-100.0) fL RDW (11.5-15.5) % Lymphocytes # (1.0-4.8) k/uL PT (9.0-12.0) sec INR (<1.2) APTT (22.0-30.0) sec Fibrinogen (200-500) mg/dL D-Dimer (<0.60) mg/L FEU Sodium 146 H (137-145) mmol/L Chloride (98-107) mmol/L BUN (7-17) mg/dL Glucose (74-99) mg/dL POC Glucose (mg/dL) 124 H 225 H (75-99) mg/dL Osmolality (280-301) mosm/kg Ferritin (10.0-291.0) ng/mL Lactate Dehydrogenase (313-618) U/L Creatine Kinase (30-135) U/L C-Reactive Protein (<10.0) mg/L 08/19/20 08/19/20 08/19/20 Range/Units 05:39 05:39 05:39 RBC 2.79 L (3.80-5.40) m/uL Hgb 9.2 L (11.4-16.0) gm/dL Hct 28.4 L (34.0-46.0) % MCV 101.8 H (80.0-100.0) fL RDW 15.7 H (11.5-15.5) % Lymphocytes # 0.5 L (1.0-4.8) k/uL PT 39.7 H (9.0-12.0) sec INR 4.1 H (<1.2) APTT 47.0 H (22.0-30.0) sec Fibrinogen 503 H (200-500) mg/dL D-Dimer 2.63 H (<0.60) mg/L FEU Sodium (137-145) mmol/L Chloride 112 H (98-107) mmol/L BUN 42 H (7-17) mg/dL Glucose 171 H (74-99) mg/dL POC Glucose (mg/dL) (75-99) mg/dL Osmolality (280-301) mosm/kg Ferritin 3735.7 H (10.0-291.0) ng/mL Lactate Dehydrogenase 2437 H (313-618) U/L Creatine Kinase 21 L (30-135) U/L C-Reactive Protein 41.0 H (<10.0) mg/L 08/19/20 08/19/20 08/19/20 Range/Units 05:39 05:40 11:59 RBC (3.80-5.40) m/uL Hgb (11.4-16.0) gm/dL Hct (34.0-46.0) % MCV (80.0-100.0) fL RDW (11.5-15.5) % Lymphocytes # (1.0-4.8) k/uL PT (9.0-12.0) sec INR (<1.2) APTT (22.0-30.0) sec Fibrinogen (200-500) mg/dL D-Dimer (<0.60) mg/L FEU Sodium (137-145) mmol/L Chloride (98-107) mmol/L BUN (7-17) mg/dL Glucose (74-99) mg/dL POC Glucose (mg/dL) 174 H 146 H (75-99) mg/dL Osmolality 313 H (280-301) mosm/kg Ferritin (10.0-291.0) ng/mL Lactate Dehydrogenase (313-618) U/L Creatine Kinase (30-135) U/L C-Reactive Protein (<10.0) mg/L Microbiology - Last 24 Hours (Table) 08/16/20 11:55 Blood Culture - Preliminary Blood No Growth after 72 hours 08/16/20 11:43 Blood Culture - Preliminary Blood No Growth after 72 hours 08/18/20 10:08 Urine Culture - Preliminary Urine,Voided Assessment and Plan Assessment: This is a 64-year-old woman with medical history of recent left hemorrhage stroke/frontal subdural hemorrhage with meningioma status post recent craniotomy that presented to the emergency department on 08/16/2020 since the patient was having shortness of breath and the her oxygen saturation per the daughter was in the 30s. She was found to have the Covid 19 positive on this admission. Altered mental status as seems to be toxic metabolic encephalopathy (from multifactorial: Elevated liver function tests, mild hypernatremia, anemia, hypoxia) and underlying pneumonia from covid---resolved Recent left hemorrhage stroke from subdural hemorrhage over the left frontal with meningioma status post craniotomy (at [facility] and discharged on 08/13/2020). Mild hypernatremia due to dehydration---resolved Acute hypoxic respiratory failure secondary due to Covid pneumonia was underlying COPD exacerbation Elevated liver function test Macrocytic anemia History of DVT History of pulmonary embolism History of coronary artery disease Hypertension Hypothyroidism Hyperlipidemia Fibromyalgia Depression Plan: Continue Keppra 500 mg 1 tablet twice a day as seizure prophylaxis. An EEG is not warranted since the patient is awake alert oriented 3 and that was following commands. If the patient's condition worsens an EEG can be considered. During nighttime the patient gets agitated and likely it's the due to delirium because of her medical condition as well as hospital stay. Regarding the macrocytic anemia: Vitamin B-12 is a 342 which is low normal as a result, I'll place the patient on 1000 g daily. Pending the folate. Ammonia level is less than 9 which is normal. TSH is 0.305 which is low and the free T4 is 0.85 which is considered within normal range. Continue thiamine 100mg daily. Nephrology is on board. Regarding the rest of the medical management will defer to the primary team as well as ICU team. The plan was discussed with the patient's nurse. James Nava MD Neuro-hospitalist. Time with Patient: Less than 30
[2020-08-19 17:11] LABS: Glucose,Whole Blood 133 mg/dL (75-99)
[2020-08-19] MEDS: CYANOCOBALAMIN 500 MCG TAB PO SCH (18:28)
[2020-08-19] MEDS: MELATONIN 5 MG TABLET PO SCH (22:27)
[2020-08-20 01:29] LABS: Glucose,Whole Blood 142 mg/dL (75-99)
[2020-08-20] MEDS: methylPREDNISolone SOD SUCCI 125 MG/2 ML VIAL IV SCH ×4 (01:43→17:41)
[2020-08-20] MEDS: INSULIN ASPART (NovoLOG) 100 UNIT/ML VIAL SQ SCH ×4 (01:43→17:49)
[2020-08-20 04:06] LABS: Basophils % (A) 1 %; Eosinophils % (A) 1 %; HCT 28.3 % (34.0-46.0); HGB 9.6 gm/dL (11.4-16.0); Lymphocytes # (A) 0.7 k/uL (1.0-4.8); Lymphocytes % (A) 11 %; MCH 34.1 pg (25.0-35.0); MCHC 34.1 g/dL (31.0-37.0); MCV 100.1 fL (80.0-100.0); Macrocytosis Slight; Mean Platelet Volume 7.8; Monocytes # (A) 0.2 k/uL (0-1.0); Monocytes % (A) 3 %; Neutrophils # (A) 5.3 k/uL (1.3-7.7); Neutrophils % (A) 83 %; Platelet Count 158 k/uL (150-450); RBC 2.82 m/uL (3.80-5.40); RDW 15.3 % (11.5-15.5); WBC 6.3 k/uL (3.8-10.6)
[2020-08-20 04:28] LABS: ALT 198 U/L (4-34); AST 92 U/L (14-36); African American GFR (CKD) >90 (>60 ml/min/1.73 sqM); Albumin 3.1 g/dL (3.5-5.0); Alkaline Phosphatase 294 U/L (38-126); Anion Gap 2 mmol/L; Blood Urea Nitrogen 36 mg/dL (7-17); Calcium 8.8 mg/dL (8.4-10.2); Carbon Dioxide 30 mmol/L (22-30); Chloride 109 mmol/L (98-107); Glucose 139 mg/dL (74-99); Non-African American GFR(CKD) 88 (>60 ml/min/1.73 sqM); Potassium 3.9 mmol/L (3.5-5.1); Sodium 141 mmol/L (137-145)
[2020-08-20 04:29] LABS: C Reactive Protein 22.7 mg/L (<10.0); Creatine Kinase 21 U/L (30-135)
[2020-08-20 04:33] LABS: LDH 2668 U/L (313-618)
[2020-08-20] MEDS ORDERED: Potassium Replacement Protocol 1 EACH MISC MISCELLANE PRN (05:06)
[2020-08-20] MEDS: POTASSIUM CHLORIDE 10 MEQ in WATER FOR INJECTION 1 100ML.BAG IVPB SCH ×2 (05:15→06:26)
[2020-08-20] MEDS: hydrALAZINE HCL 20 MG/ML 1 ML VIAL IVP PRN ×3 (06:26→17:41)
--- NOTE | 2020-08-20 06:40 | XR ---
EXAMINATION TYPE: XR chest 1V DATE OF EXAM: 08/20/2020 CLINICAL HISTORY: Difficulty breathing and covid 19 infection progress study. TECHNIQUE: Single AP portable upright view of the chest is obtained. COMPARISON: Chest x-ray from one day earlier and older studies. FINDINGS: Multifocal bilateral opacities remain present. The cardiac silhouette size is stable and e nlarged. The osseous structures are intact. Overlying EKG leads noted. IMPRESSION: Cardiomegaly with bilateral multifocal acute infiltrates consistent with product of covi d 19 infection. No significant change from most recent prior.
[2020-08-20] MEDS: CYANOCOBALAMIN 500 MCG TAB PO SCH (08:28)
[2020-08-20] MEDS: ASCORBIC ACID 500 MG TAB PO SCH ×2 (08:28→10:23)
[2020-08-20] MEDS: LEVOTHYROXINE IVP 100 MCG/5 ML VIAL IV SCH (08:29)
[2020-08-20] MEDS: ZINC SULFATE 220 MG CAP PO SCH (08:29)
[2020-08-20] MEDS: THIAMINE 100 MG TAB PO SCH (08:29)
[2020-08-20] MEDS: DOCUSATE 100 MG CAP PO SCH (08:29)
[2020-08-20] MEDS: FAMOTIDINE 20 MG/2 ML VIAL IV SCH ×2 (08:31→20:12)
[2020-08-20] MEDS: levETIRAcetam IV 500 MG in SODIUM CHLORIDE 0.9% 100 ML IVPB SCH ×2 (08:39→20:11)
[2020-08-20] MEDS: ENOXAPARIN 80 MG/0.8 ML SYRINGE SQ SCH ×2 (08:40→20:11)
[2020-08-20] MEDS: VENLAFAXINE HCL ER 150 MG CAP PO SCH (08:40)
[2020-08-20] MEDS: DEXTROSE 5% IN WATER 1,000 ML IV SCH (08:40)
[2020-08-20] MEDS: CHOLECALCIFEROL 1,000 UNIT TAB PO SCH (08:49)
[2020-08-20] MEDS ORDERED: FUROSEMIDE 10 MG/ML 4 ML VIAL IV STA (09:22)
[2020-08-20 10:12] LABS: Ferritin 2476.2 ng/mL (10.0-291.0)
--- NOTE | 2020-08-20 11:06 | P.PN ---
Subjective Patient is seen in follow-up for hyponatremia. Sodium level normal today. She is maintained on D5W at 60 mL an hour. Currently on BiPAP. Oral intake poor per the nurse. Vital signs are stable. On BiPAP. No gross edema noted. Exam discussed with the nurse. Objective - Vital Signs Vital signs: Vital Signs Temp 98.8 F 08/20/20 09:00 Pulse 76 08/20/20 10:00 Resp 38 H 08/20/20 10:00 BP 163/93 08/20/20 10:00 Pulse Ox 95 08/20/20 10:00 Intake & Output 08/19/20 08/20/20 08/20/20 18:59 06:59 18:59 Intake Total 760 780 240 Output Total 750 1050 410 Balance 10 -270 -170 Weight 99.7 kg Intake: IV 780 240 Dextrose 5% in Water 1, 480 240 000 ml @ 60 mls/hr IV . [id number] TABATHA Rx#:[id number] Potassium Chloride 10 meq 200 In Water For Injection 1 100ml.bag @ 100 mls/hr IVPB Q1H TABATHA Rx#: [id number] levETIRAcetam IV 500 mg 100 In Sodium Chloride 0.9% 100 ml @ 400 mls/hr IVPB Q12HR TABATHA Rx#:[id number] Intake, IV Titration 760 Amount Dextrose 5% in Water 1, 660 000 ml @ 60 mls/hr IV . [id number] TABATHA Rx#:[id number] levETIRAcetam IV 500 mg 100 In Sodium Chloride 0.9% 100 ml @ 400 mls/hr IVPB Q12HR TABATHA Rx#:[id number] Output: Urine 750 1050 410 Other: Voiding Method Indwelling Catheter Indwelling Catheter - Labs CBC & Chem 7: 08/20/20 03:50 08/20/20 03:50 Labs: Abnormal Lab Results - Last 24 Hours (Table) 08/19/20 08/19/20 08/20/20 Range/Units 11:59 17:10 01:27 RBC (3.80-5.40) m/uL Hgb (11.4-16.0) gm/dL Hct (34.0-46.0) % MCV (80.0-100.0) fL Lymphocytes # (1.0-4.8) k/uL Chloride (98-107) mmol/L BUN (7-17) mg/dL Glucose (74-99) mg/dL POC Glucose (mg/dL) 146 H 133 H 142 H (75-99) mg/dL Ferritin (10.0-291.0) ng/mL AST (14-36) U/L ALT (4-34) U/L Alkaline Phosphatase (38-126) U/L Lactate Dehydrogenase (313-618) U/L Creatine Kinase (30-135) U/L C-Reactive Protein (<10.0) mg/L Total Protein (6.3-8.2) g/dL Albumin (3.5-5.0) g/dL 08/20/20 08/20/20 Range/Units 03:50 03:50 RBC 2.82 L (3.80-5.40) m/uL Hgb 9.6 L (11.4-16.0) gm/dL Hct 28.3 L (34.0-46.0) % MCV 100.1 H (80.0-100.0) fL Lymphocytes # 0.7 L (1.0-4.8) k/uL Chloride 109 H (98-107) mmol/L BUN 36 H (7-17) mg/dL Glucose 139 H (74-99) mg/dL POC Glucose (mg/dL) (75-99) mg/dL Ferritin 2476.2 H (10.0-291.0) ng/mL AST 92 H (14-36) U/L ALT 198 H (4-34) U/L Alkaline Phosphatase 294 H (38-126) U/L Lactate Dehydrogenase 2668 H (313-618) U/L Creatine Kinase 21 L (30-135) U/L C-Reactive Protein 22.7 H (<10.0) mg/L Total Protein 6.0 L (6.3-8.2) g/dL Albumin 3.1 L (3.5-5.0) g/dL Microbiology - Last 24 Hours (Table) 08/18/20 10:08 Urine Culture - Preliminary Urine,Voided Gram Neg Bacilli 08/16/20 11:55 Blood Culture - Preliminary Blood No Growth after 72 hours 08/16/20 11:43 Blood Culture - Preliminary Blood No Growth after 72 hours Assessment and Plan Plan: Assessment: 1. Hypernatremia secondary to lack of oral water intake. Patient is not polyuric. Urine osmolality 631 and urine random sodium 47. No evidence of diabetes insipidus. Sodium level is improving. 2. Acute hypoxic respiratory failure secondary to covid 19 pneumonia. On BiPap. 3. History of meningioma and left subdural hemorrhage status post left frontal craniotomy in July 2020. 4. Benign hypertension. Exacerbated by steroids. Maintained on Lopressor and hydralazine. Plan: Agree with changing IV fluids to half-normal saline. Encourage oral intake, including free water. Status post IV Lasix this morning. Wean FiO2. Repeat electrolytes in the morning.
[2020-08-20] MEDS: DEXTROSE 5%-0.45% NACL 1,000 ML IV SCH (11:19)
[2020-08-20 11:49] LABS: Glucose,Whole Blood 148 mg/dL (75-99)
--- NOTE | 2020-08-20 12:47 | P.PN ---
Subjective Progress Note Date: 08/20/20 HISTORY OF PRESENT ILLNESS Ms. Sutherland is a 64 years old female patient of Dr. Siu with past medical history of coronary artery disease, hypertension, history of DVT and pul monary embolism in 2002, fibromyalgia, asthma who presented to the hospital with worsening shortness of breath associated with change in mental status for the past 24 hours. Patient was in [facility] for subdural hemorrhage associated with meningioma in the left frontal lobe. Patient underwent left frontal craniotomy and was discharged on 08/13 on seizure precaution medication and pain medication. Patient's daughter is an RN who checked her oxygen at home which was saturating at 38%. Patient was brought to the hospital by EMS as patient was found unresponsive with her oxygen in the 40s and was placed on a BiPAP. Patient is unable to provide any history as she Is confused. Called patient's who stated that patient was doing well post discharge until last night when she became short of breath and confused. Patient did have acute stroke from the subdural hemorrhage causing right arm and right leg weakness associated with a phase ER. Patient was in the hospital for 6 weeks and recovered from both right upper and lower extremity weakness and a phasia. Patient was smoking at home post discharge. She was evaluated by her daughter who is an RN who insisted on calling EMS as she did not appear well.On evaluation in the ER patient was found to have bilateral groundglass opacities concerning for call with pneumonia. Vital suggested temp of 97.9 pulse 81 blood pressure 122/78 respiratory rate of 20. Call with 19 was positive. WBC 5.8 hemoglobin 10.4. ABG was obtained with a pO2 of 55 pCO2 of 44 . Patient's sodium is 146 chloride 117 BUN 48 creatinine 1.01 glucose 110 AST 74 8079 magnesium 2.5 proBNP 1560 LDH 2556 troponin negative 1 CRP 220. INR is jose vated at 2.6. Pulmonary consult was placed. Patient placed on Solu-Medrol 60 every 6, zinc sulfide 220 vitamin C 1000 mg daily. EKG was normal sinus rhythm with no ST or segment depression or elevation. 1/3 patient assessed in ICU currently on BiPAP. Patient is oriented 2. Patient was not able to tolerate being off BiPAP for even a few minutes to take her medications. Patient is currently on 100% FiO2 on BiPAP saturating at 91- 92% vitals otherwise stable temp of 98.8 pulse 75 respiratory rate 27 blood pressure 129/53. Patient has a drop of hemoglobin from 10.4-8 today with MCV 103. INR is 1.8 subtherapeutic, elevated APTT 50 in origin and d-dimer 0.97. PCO2 is 46 pO2 71 bicarb 28 with a pH of 7.37, sodium 146 chloride 1:15, BUN 48 creatinine 0.87 glucose 125. Alkaline phosphatase has increased to 215 from 1:15, AST increased from 7 to 151 ALT increased from 79 to 201. Ultrasound abdomen ordered to evaluate for liver and gallbladder. 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 Patient is unable to take oral medication will switch patient's medication to IV today 08/18: Patient remains in the intensive care unit on BiPAP. She maintains a pulse ox of 91-96% but quickly drops if BiPAP is removed. She's been afebrile, heart rate 73, blood pressure 146/75. Repeat blood work reveals WBC 6.3, hemoglobin 10, platelet count 173. INR is 3.1. Fibrinogen 572, d-dimer 1.09. Sodium 152, potassium 4.4, chloride 117, CO2 31, BUN 48 and creatinine 0.89. TSH 0.305. ProBNP 1290. C-reactive protein 87.9. CK 22, LDH 2721. Blood sugars running in the 120s and 130s. Repeat chest x-ray reveals continued bilateral airspace disease. Patient has been seen by neurology with recommendations to continue Keppra 500 mg twice daily for seizure prophylaxis. Records from [facility] to be obtained. Patient was started on desmopressin 0.05 mg 1 tablet twice a day for central diabetes insipidus. Vitamin B-12 and folate levels ordered. TSH and ammonia level. Thiamine was started. Patient was also seen by nephrology for hypernatremia and started on normal saline at 50 mL per hour for now. 08/19: Patient remains in the intensive care unit oxygen is down to 80% on BiPAP with pulse ox running between 89 and 92. She has been afebrile, heart rate 73, blood pressure 101/59. Pulse ox drops if BiPAP is removed. We will start a soft diet as she is stating she is hungry. Midline was placed yesterday. Repe at blood work reveals WBC 6.5, hemoglobin 9.2, platelet count 161. D-dimer 2.63, fibrinogen 503, INR 4.1. Creatinine 0.81. Blood sugars run between 146 and 225. Repeat chest x-ray reveals slight improvement of diffuse infiltrate can be compatible with atypical pneumonia. Patient received DDAVP yesterday. She is currently on D5W at 60 mL per hour. She remains on Solu-Medrol 60 mg IV every 6 hours. 08/20: Patient remains in intensive care unit. She is on BiPAP and desats quickly if this is removed down to 75. She is confused and has pulled off her BiPAP. She is able to a very little today due to desaturation. Daughter has been updated during the night of the patient's status. She has been afebrile, heart rate 80, respiratory rate 26-44, blood pressure 169/88, pulse ox 92% on 70% FiO2 on BiPAP. Repeat blood work reveals Gaby BC 6.3, hemoglobin 9.6, platelet count 158. Lymphocytes are 0.7. BUN 36 creatinine 0.72. Blood sugars running between 130 348. Ferritin 2476. AST 92, ALT 198, alkaline phosphatase 294. LDH 2668. CK 0.1, C-reactive protein 22.7. Urine culture is showing gram- negative bacilli. Blood culture no growth after 72 hours 2 specimens. Repeat chest x-ray reveals cardiomegaly with bilateral multifocal acute infiltrates consistent with COVID-19. Patient is continued on IV fluids of D5W at 60 mL per hour and change today to half-normal saline. Patient received 1 dose of IV Lasix this morning. Desmopressin was discontinued as central diabetes insipidus was ruled out. REVIEW OF SYSTEMS Constitutional: No fever, no chills, no night sweats. No weight change. Reports weakness, reports fatigue, reports daytime sleepiness. EENT: No headache. No blurred vision or double vision, no loss of vision. No loss of Hearing, no ringing in the ears, no dizziness. No nasal drainage or congestion. No epistaxis. No sore throat. Lungs: Reports continued shortness of breath, reports cough, no sputum production. No wheezing. Cardiovascular: No chest pain, no lower extremity edema. No palpitations. No paroxysmal nocturnal dyspnea. No orthopnea. No lightheadedness or dizziness. No syncopal episodes. Abdominal: No abdominal pain. No nausea, vomiting. No diarrhea. No constipation. No bloody or tarry stools. Reports increased appetite. Genitourinary: No dysuria, increased frequency, urgency. No urinary retention. Moses catheter in place. Musculoskeletal: No myalgias. No muscle weakness, no gait dysfunction, no frequent falls. No back pain. No neck pain. Integumentary: No wounds, no lesions. No rash or pruritus. No unusual bruising. Neurologic: No aphasia. No facial droop. Reported change in mentation- improving. No head injury. No headache. No paralysis. No paresthesia. Psychiatric: No depression. No anxiety. No mood swings. Endocrine: No abnormal blood sugars. No weight change. PHYSICAL EXAMINATION Gen: This is a 63-year-old female. She is in the ICU on BiPAP. HEENT: Head is atraumatic, normocephalic. Pupils equal, round. Sclerae is anicteric. NECK: Supple. No JVD. No lymphadenopathy. No thyromegaly. LUNGS: Scattered rhonchi. No wheezes. Mild intercostal retractions. HEART: Regular rate and rhythm. 3/6 systolic murmur. ABDOMEN: Soft. Bowel sounds are present. No masses. No tenderness. Moses catheter in place. EXTREMITIES: No pedal edema. No calf tenderness. NEUROLOGICAL: Patient is awake, alert and oriented to person and place. ASSESSMENT AND PLAN 1. Acute hypoxic respiratory failure secondary to COVID-19 Pneumonia and COPD exacerbation. Consult with pulmonary medicine appreciated. Continue oxygen therapy currently on BiPAP 2. COVID-19 pneumonia. Continue vitamin C, vitamin D, zinc, Solu-Medrol 60 mg IV every 6 hours, Lovenox. 3. COPD exacerbation. Continue Solu-Medrol 60 mg IV every 6 hours, pulmonary consult appreciated. 4. Acute hemorrhagic stroke with acute left subdural hemorrhage with benign tumor status post left frontal craniotomy. Patient was discharged on August 13 from [facility]/rehab facility. Continue Keppra and steroids. Consult with neurology appreciated. 5. Acute toxic metabolic encephalopathy secondary to Covid 19, hyponatremia. Neurology consult appreciated. Continue Keppra for prophylaxis seizure activity. Hold [place] and Lyrica. 6. Central diabetes insipidus ruled out. 7. History of pulmonary embolism and DVT. Continue Lovenox 80 mg subcu every 12 hours. Hold Coumadin. 8. History of coronary artery disease. Continue Lopressor 9. Hypertension. Continue Lopressor 5 mg IV push every 6 hours as needed, hydralazine 10 mg IV push every 6 hours as needed 10. Hypothyroidism. Patient will be resumed on levothyroxine 25 g IV daily. 11. Hyperlipidemia. Hold pravastatin. 12. Recurrent depression. Continue venlafaxine 150 mg oral daily. 13. GI prophylaxis. Pepcid 20 mg IV every 12 hours. 14. DVT prophylaxis. Lovenox subcu. DISCHARGE PLAN To be determined. Impression and plan of care have been directed as dictated by the signing physician. Karyn Tamayo nurse practitioner acting as scribe for signing physician. Objective - Vital Signs Vital signs: Vital Signs Temp 98.6 F 08/20/20 08:00 Pulse 117 H 08/20/20 08:00 Resp 21 08/20/20 08:00 BP 168/82 08/20/20 08:00 Pulse Ox 88 L 08/20/20 08:00 Intake & Output 08/19/20 08/20/20 08/20/20 18:59 06:59 18:59 Intake Total 760 780 120 Output Total 750 1050 250 Balance 10 -270 -130 Weight 99.7 kg Intake: IV 780 120 Dextrose 5% in Water 1, 480 120 000 ml @ 60 mls/hr IV . [id number] TABATHA Rx#:[id number] Potassium Chloride 10 meq 200 In Water For Injection 1 100ml.bag @ 100 mls/hr IVPB Q1H TABATHA Rx#: [id number] levETIRAcetam IV 500 mg 100 In Sodium Chloride 0.9% 100 ml @ 400 mls/hr IVPB Q12HR TABATHA Rx#:[id number] Intake, IV Titration 760 Amount Dextrose 5% in Water 1, 660 000 ml @ 60 mls/hr IV . [id number] TABATHA Rx#:[id number] levETIRAcetam IV 500 mg 100 In Sodium Chloride 0.9% 100 ml @ 400 mls/hr IVPB Q12HR TABATHA Rx#:[id number] Output: Urine 750 1050 250 Other: Voiding Method Indwelling Catheter Indwelling Catheter - Labs CBC & Chem 7: 08/20/20 03:50 08/20/20 03:50 Labs: Abnormal Lab Results - Last 24 Hours (Table) 08/19/20 08/19/20 08/19/20 Range/Units 05:39 11:59 17:10 RBC (3.80-5.40) m/uL Hgb (11.4-16.0) gm/dL Hct (34.0-46.0) % MCV (80.0-100.0) fL Lymphocytes # (1.0-4.8) k/uL Chloride (98-107) mmol/L BUN (7-17) mg/dL Glucose (74-99) mg/dL POC Glucose (mg/dL) 146 H 133 H (75-99) mg/dL Ferritin 3735.7 H (10.0-291.0) ng/mL AST (14-36) U/L ALT (4-34) U/L Alkaline Phosphatase (38-126) U/L Lactate Dehydrogenase (313-618) U/L Creatine Kinase (30-135) U/L C-Reactive Protein (<10.0) mg/L Total Protein (6.3-8.2) g/dL Albumin (3.5-5.0) g/dL 08/20/20 08/20/20 08/20/20 Range/Units 01:27 03:50 03:50 RBC 2.82 L (3.80-5.40) m/uL Hgb 9.6 L (11.4-16.0) gm/dL Hct 28.3 L (34.0-46.0) % MCV 100.1 H (80.0-100.0) fL Lymphocytes # 0.7 L (1.0-4.8) k/uL Chloride 109 H (98-107) mmol/L BUN 36 H (7-17) mg/dL Glucose 139 H (74-99) mg/dL POC Glucose (mg/dL) 142 H (75-99) mg/dL Ferritin (10.0-291.0) ng/mL AST 92 H (14-36) U/L ALT 198 H (4-34) U/L Alkaline Phosphatase 294 H (38-126) U/L Lactate Dehydrogenase 2668 H (313-618) U/L Creatine Kinase 21 L (30-135) U/L C-Reactive Protein 22.7 H (<10.0) mg/L Total Protein 6.0 L (6.3-8.2) g/dL Albumin 3.1 L (3.5-5.0) g/dL Microbiology - Last 24 Hours (Table) 08/18/20 10:08 Urine Culture - Preliminary Urine,Voided Gram Neg Bacilli 08/16/20 11:55 Blood Culture - Preliminary Blood No Growth after 72 hours 08/16/20 11:43 Blood Culture - Preliminary Blood No Growth after 72 hours
--- NOTE | 2020-08-20 13:42 | P.PN ---
Subjective Progress Note Date: 08/20/20 Principal diagnosis: Acute hypoxic respiratory failure secondary to covid 19 pneumonitis. Patient was reevaluated today on 08/18/2020, remains in the ICU, she seems to be now almost BiPAP dependent. Patient was admitted 2 days ago, she has covid 19 pneumonia. Patient was out of the window for remdesivir, received 2 units of convalescent plasma. Chest x-ray shows diffuse interstitial infiltrates. Overall pulmonary status is marginal at best. Patient seems to be quite ill, and I have a strong feeling that the patient may eventually require intubation and mechanical ventilation. O2 saturation is marginal. She is being evaluated by nephrology for hyponatremia felt to be secondary to lack of water intake. Patient is not polyuric, and her urine osmolality does not point to diabetes insipidus. Patient did have previous history of meningioma and left subdural hemorrhage she had previous left frontal craniotomy in July of 2020. Sodium level today went as high as 152, and I have switched the patient to D5W. Looking at the chart, patient had recent craniotomy at [facility], and she was discharged on 08/13/2020. Her other medical problems included history of DVT and pulmonary embolism, history of hypertension, fibromyalgia, and depression as well as hypothyroidism. Reevaluated today on 08/19/2020, patient remains in the ICU, presently on BiPAP, with IPAP of 12 and EPAP 5, FiO2 80% I cut it down to 70%. She is on D5W at 60 mL/h. Clearly her urine tests and her osmolality as well as specific gravity do not point to diabetes insipidus. Sodium is correcting nicely with D5W. Has discontinued DDAVP. Patient is being treated for acute hypoxic respiratory failure secondary to Covid 19 pneumonitis. Patient was outside the window for remdesivir but she did receive 2 units of convalescent plasma. Overall I believe the patient is making slight improvement, hence I was able to titrate her FiO2 down to 70%. Remains on Lovenox 80 mg subcu twice a day and she is also on Solu-Medrol. She is also on the Covid 19 cocktails. Reevaluated today on 08/20/2020, patient remains in the ICU, she is presently on BiPAP with IPAP of 12 and EPAP of 5, O2 saturations 96%, patient could not swallow, hence we attempted placement of the nasogastric tube, did not tolerate that very well, hence I will go ahead and recommend a PICC line and TPN on this patient and set of enteral feeding. Not much change noted since the patient was admitted, she remains marginal at best. IV fluids remains at D545 at 60 mL per hour. And we have consulted dietitian to evaluate for TPN. Chest x-ray continues to show diffuse airspace disease consistent with Covid 19 pneumonitis. CBC is relatively normal basic metabolic profile is normal renal profile is normal. LDH is 2668 and C-reactive protein is 22.7. Objective - Vital Signs Vital signs: Vital Signs Temp 97.8 F 08/20/20 12:00 Pulse 80 08/20/20 12:00 Resp 26 H 08/20/20 12:00 BP 169/88 08/20/20 12:00 Pulse Ox 92 L 08/20/20 12:00 Intake & Output 08/19/20 08/20/20 08/20/20 18:59 06:59 18:59 Intake Total 760 780 460 Output Total 750 1050 610 Balance 10 -270 -150 Weight 99.7 kg Intake: IV 780 460 Dextrose 5% in Water 1, 480 240 000 ml @ 60 mls/hr IV . [id number] TABATHA Rx#:[id number] Dextrose 5%-0.45% NaCl 1, 120 000 ml @ 60 mls/hr IV . [id number] TABATHA Rx#:[id number] Potassium Chloride 10 meq 200 In Water For Injection 1 100ml.bag @ 100 mls/hr IVPB Q1H TABATHA Rx#: [id number] levETIRAcetam IV 500 mg 100 100 In Sodium Chloride 0.9% 100 ml @ 400 mls/hr IVPB Q12HR TABATHA Rx#:[id number] Intake, IV Titration 760 Amount Dextrose 5% in Water 1, 660 000 ml @ 60 mls/hr IV . [id number] TABATHA Rx#:[id number] levETIRAcetam IV 500 mg 100 In Sodium Chloride 0.9% 100 ml @ 400 mls/hr IVPB Q12HR TABATHA Rx#:[id number] Output: Urine 750 1050 610 Other: Voiding Method Indwelling Catheter Indwelling Catheter Indwelling Catheter - Exam Gen: This is a 63-year-old female. She is in the ICU on BiPAP. 07/19/70 HEENT: Head is atraumatic, normocephalic. Pupils equal, round. Sclerae is anic teric. NECK: Supple. No JVD. No lymphadenopathy. No thyromegaly. LUNGS: Scattered rhonchi. No wheezes. Mild intercostal retractions. HEART: Regular rate and rhythm. 3/6 systolic murmur. ABDOMEN: Soft. Bowel sounds are present. No masses. No tenderness. Moses catheter in place. EXTREMITIES: No pedal edema. No calf tenderness. NEUROLOGICAL: Patient is awake, alert and oriented x3. Cranial nerves 2 through 12 are grossly intact. - Labs CBC & Chem 7: 08/20/20 03:50 08/20/20 03:50 Labs: Abnormal Lab Results - Last 24 Hours (Table) 08/19/20 08/20/20 08/20/20 Range/Units 17:10 01:27 03:50 RBC 2.82 L (3.80-5.40) m/uL Hgb 9.6 L (11.4-16.0) gm/dL Hct 28.3 L (34.0-46.0) % MCV 100.1 H (80.0-100.0) fL Lymphocytes # 0.7 L (1.0-4.8) k/uL Chloride (98-107) mmol/L BUN (7-17) mg/dL Glucose (74-99) mg/dL POC Glucose (mg/dL) 133 H 142 H (75-99) mg/dL Ferritin (10.0-291.0) ng/mL AST (14-36) U/L ALT (4-34) U/L Alkaline Phosphatase (38-126) U/L Lactate Dehydrogenase (313-618) U/L Creatine Kinase (30-135) U/L C-Reactive Protein (<10.0) mg/L Total Protein (6.3-8.2) g/dL Albumin (3.5-5.0) g/dL 08/20/20 08/20/20 Range/Units 03:50 11:46 RBC (3.80-5.40) m/uL Hgb (11.4-16.0) gm/dL Hct (34.0-46.0) % MCV (80.0-100.0) fL Lymphocytes # (1.0-4.8) k/uL Chloride 109 H (98-107) mmol/L BUN 36 H (7-17) mg/dL Glucose 139 H (74-99) mg/dL POC Glucose (mg/dL) 148 H (75-99) mg/dL Ferritin 2476.2 H (10.0-291.0) ng/mL AST 92 H (14-36) U/L ALT 198 H (4-34) U/L Alkaline Phosphatase 294 H (38-126) U/L Lactate Dehydrogenase 2668 H (313-618) U/L Creatine Kinase 21 L (30-135) U/L C-Reactive Protein 22.7 H (<10.0) mg/L Total Protein 6.0 L (6.3-8.2) g/dL Albumin 3.1 L (3.5-5.0) g/dL Microbiology - Last 24 Hours (Table) 08/18/20 10:08 Urine Culture - Preliminary Urine,Voided Gram Neg Bacilli 08/16/20 11:55 Blood Culture - Preliminary Blood No Growth after 72 hours 08/16/20 11:43 Blood Culture - Preliminary Blood No Growth after 72 hours Assessment and Plan Assessment: Impression: Acute hypoxic respiratory failure secondary to covid 19 and pneumonia. Recent history of hemorrhagic stroke with left subdural hematoma status post left frontal craniotomy Acute toxic metabolic encephalopathy Mild hypernatremia, clearly not related to diabetes insipidus based on the urinary findings. However the patient will improve with liberalizing free water but no need for DDAVP. History of pulmonary embolism and DVT. On Lovenox. History of underlying coronary artery disease. Benign essential hypertension. Hypothyroidism. Dyslipidemia. Recommendation: Continue BiPAP. Titrate FiO2 accordingly. Enteral feeding via PICC line.. Continue the Covid 19 cocktail. Continue Solu-Medrol. Change IV fluid to D5 45. Continue GI and DVT prophylaxis. Continue Lovenox. Overall prognosis remains poor and guarded. We'll continue to follow, I am afraid that the patient may end up deteriorating and requiring intubation, hence I would keep the patient in the ICU for now. Time with Patient: Less than 30
[2020-08-20 15:12] LABS: Magnesium 2.2 mg/dL (1.6-2.3)
[2020-08-20] MEDS ORDERED: MVI, ADULT NO.4 WITH VIT K 10 ML, TRACE (CONC-1ML/DOSE) 1 ML in AMINO ACID 5%-D20W+LYTE... IV SCH ×3 (16:00)
--- NOTE | 2020-08-20 16:52 | P.PN ---
Subjective Progress Note Date: 08/20/20 She was seen at bedside today and she feels about the same as yesterday. While seen her she was she was on BiPAP machine. Objective - Vital Signs Vital signs: Vital Signs Temp 97.8 F 08/20/20 12:00 Pulse 77 08/20/20 15:00 Resp 32 H 08/20/20 15:00 BP 142/89 08/20/20 15:00 Pulse Ox 95 08/20/20 16:47 Intake & Output 08/19/20 08/20/20 08/20/20 18:59 06:59 18:59 Intake Total 760 780 580 Output Total 750 1050 1550 Balance 10 270 -970 Weight 99.7 kg 99.7 kg Intake: IV 780 580 Dextrose 5% in Water 1, 480 240 000 ml @ 60 mls/hr IV . [id number] [facility] Rx#:[id number] Dextrose 5%-0.45% NaCl 1, 240 000 ml @ 60 mls/hr IV . [id number] [facility] Rx#:[id number] Potassium Chloride 10 meq 200 In Water For Injection 1 100ml.bag @ 100 mls/hr IVPB Q1H [facility] Rx#: [id number] levETIRAcetam IV 500 mg 100 100 In Sodium Chloride 0.9% 100 ml @ 400 mls/hr IVPB Q12HR [facility] Rx#:[id number] Intake, IV Titration 760 Amount Dextrose 5% in Water 1, 660 000 ml @ 60 mls/hr IV . [id number] [facility] Rx#:[id number] levETIRAcetam IV 500 mg 100 In Sodium Chloride 0.9% 100 ml @ 400 mls/hr IVPB Q12HR [facility] Rx#:[id number] Output: Urine 750 1050 1550 Other: Voiding Method Indwelling Catheter Indwelling Catheter Indwelling Catheter - Exam GENERAL: The patient is lying in bed and is not in acute distress. NEUROLOGICAL: Limited since on BIPAP machine. Higher mental function: The patient is awake, alert, oriented to self and place. Regarding to time she correctly answered it to options. Patient is following commands. No aphasia and no neglect. Cranial nerves: The pupils are round, equal and reactive to light and accommodation. Visual mccauley are full to confrontation throughout. Extraocular movement is intact no nystagmus is noted. Facial sensation is normal to touch throughout. The facial strength could not fully assess since had mask for respiratory treatment but no focal deficit seen with mask on. Hearing is normal bilaterally to hand rub. Shoulder shrug is normal bilaterally. Motor: Gait is deferred because of patient's condition. The strength is right upper extremity of right elbow flexion is 4+ while right hand mail manager is 5-. Otherwise strength is 5/5 throughout. Normal tone and bulk. Sensation: Sensation is normal to touch throughout. Reflexes (right/left): 3+ right patellar otherwise 2+ throughout. Plantars are downgoing bilaterally. - Labs CBC & Chem 7: 08/20/20 03:50 08/20/20 03:50 Labs: Abnormal Lab Results - Last 24 Hours (Table) 08/19/20 08/20/20 08/20/20 Range/Units 17:10 01:27 03:50 RBC 2.82 L (3.80-5.40) m/uL Hgb 9.6 L (11.4-16.0) gm/dL Hct 28.3 L (34.0-46.0) % MCV 100.1 H (80.0-100.0) fL Lymphocytes # 0.7 L (1.0-4.8) k/uL Chloride (98-107) mmol/L BUN (7-17) mg/dL Glucose (74-99) mg/dL POC Glucose (mg/dL) 133 H 142 H (75-99) mg/dL Ferritin (10.0-291.0) ng/mL AST (14-36) U/L ALT (4-34) U/L Alkaline Phosphatase (38-126) U/L Lactate Dehydrogenase (313-618) U/L Creatine Kinase (30-135) U/L C-Reactive Protein (<10.0) mg/L Total Protein (6.3-8.2) g/dL Albumin (3.5-5.0) g/dL Triglycerides (<150) mg/dL 08/20/20 08/20/20 08/20/20 Range/Units 03:50 11:46 14:29 RBC (3.80-5.40) m/uL Hgb (11.4-16.0) gm/dL Hct (34.0-46.0) % MCV (80.0-100.0) fL Lymphocytes # (1.0-4.8) k/uL Chloride 109 H (98-107) mmol/L BUN 36 H (7-17) mg/dL Glucose 139 H (74-99) mg/dL POC Glucose (mg/dL) 148 H (75-99) mg/dL Ferritin 2476.2 H (10.0-291.0) ng/mL AST 92 H (14-36) U/L ALT 198 H (4-34) U/L Alkaline Phosphatase 294 H (38-126) U/L Lactate Dehydrogenase 2668 H (313-618) U/L Creatine Kinase 21 L (30-135) U/L C-Reactive Protein 22.7 H (<10.0) mg/L Total Protein 6.0 L (6.3-8.2) g/dL Albumin 3.1 L (3.5-5.0) g/dL Triglycerides 225 H (<150) mg/dL Microbiology - Last 24 Hours (Table) 08/16/20 11:55 Blood Culture - Preliminary Blood No Growth after 96 hours 08/16/20 11:43 Blood Culture - Preliminary Blood No Growth after 96 hours 08/18/20 10:08 Urine Culture - Preliminary Urine,Voided Gram Neg Bacilli Assessment and Plan Assessment: This is a 64-year-old woman with medical history of recent left hemorrhage stroke/frontal subdural hemorrhage with meningioma status post recent craniotomy that presented to the emergency department on 08/16/2020 since the patient was having shortness of breath and the her oxygen saturation per the daughter was in the 30s. She was found to have the Covid 19 positive on this admission. Altered mental status as seems to be toxic metabolic encephalopathy (from multifactorial: Elevated liver function tests, mild hypernatremia, anemia, hypoxia) and underlying pneumonia from covid---resolved Recent left hemorrhage stroke from subdural hemorrhage over the left frontal wit h meningioma status post craniotomy (at [facility] and discharged on 08/13/2020). Mild hypernatremia due to dehydration---resolved Acute hypoxic respiratory failure secondary due to Covid pneumonia was underlying COPD exacerbation Elevated liver function test Macrocytic anemia History of DVT History of pulmonary embolism History of coronary artery disease Hypertension Hypothyroidism Hyperlipidemia Fibromyalgia Depression Plan: Continue Keppra 500 mg 1 tablet twice a day as seizure prophylaxis. An EEG is not warranted since the patient is awake alert oriented 3 and that was following commands. If the patient's condition worsens an EEG can be considered. During nighttime the patient gets agitated and likely it's the due to delirium because of her medical condition as well as hospital stay. Regarding the macrocytic anemia: Vitamin B-12 is a 342 which is low normal as a result, I placed the patient on 1000 g daily. RBC Folate: 768 (normal). Ammonia level is less than 9 which is normal. TSH is 0.305 which is low and the free T4 is 0.85 which is considered within normal range. Continue thiamine 100mg daily. Nephrology is on board. Regarding the rest of the medical management will defer to the primary team as well as ICU team. The plan was discussed with the patient's nurse. We'll follow up with the patient sporadically. James Nava MD Neuro-hospitalist. Time with Patient: Less than 30
[2020-08-20] MEDS: FAT EMULSION 20% 250 ML in EMPTY BAG 1 BAG IV SCH (17:38)
[2020-08-20 17:48] LABS: Glucose,Whole Blood 165 mg/dL (75-99)
[2020-08-20] MEDS ORDERED: cloNIDine 0.1 MG/24HR PATCH TRANSDERM SCH (19:45)
[2020-08-20] MEDS: MELATONIN 5 MG TABLET PO SCH (20:12)
[2020-08-20] MEDS ORDERED: CALCIUM CARBONATE 500 MG CHEWABLE PO PRN (21:51)
[2020-08-20 22:57] LABS: Glucose,Whole Blood 154 mg/dL (75-99)
[2020-08-21] MEDS: methylPREDNISolone SOD SUCCI 125 MG/2 ML VIAL IV SCH ×5 (00:42→23:07)
[2020-08-21] MEDS: INSULIN ASPART (NovoLOG) 100 UNIT/ML VIAL SQ SCH ×5 (00:42→23:07)
[2020-08-21 04:19] LABS: Basophils # (A) 0.2 k/uL (0-0.2); Basophils % (A) 2 %; Eosinophils % (A) 0 %; HCT 28.3 % (34.0-46.0); HGB 9.5 gm/dL (11.4-16.0); Lymphocytes # (A) 0.7 k/uL (1.0-4.8); Lymphocytes % (A) 9 %; MCH 33.5 pg (25.0-35.0); MCHC 33.7 g/dL (31.0-37.0); MCV 99.6 fL (80.0-100.0); Macrocytosis Slight; Monocytes # (A) 0.2 k/uL (0-1.0); Monocytes % (A) 3 %; Neutrophils % (A) 82 %; Platelet Count 158 k/uL (150-450); RBC 2.84 m/uL (3.80-5.40); RDW 15.4 % (11.5-15.5); WBC 7.4 k/uL (3.8-10.6)
[2020-08-21 05:29] LABS: ALT 233 U/L (4-34); AST 78 U/L (14-36); African American GFR (CKD) >90 (>60 ml/min/1.73 sqM); Alkaline Phosphatase 287 U/L (38-126); Anion Gap 2 mmol/L; Blood Urea Nitrogen 38 mg/dL (7-17); C Reactive Protein 10.8 mg/L (<10.0); Calcium 8.9 mg/dL (8.4-10.2); Carbon Dioxide 31 mmol/L (22-30); Chloride 106 mmol/L (98-107); Creatine Kinase <20 U/L (30-135); Glucose 164 mg/dL (74-99); Magnesium 2.3 mg/dL (1.6-2.3); Non-African American GFR(CKD) 86 (>60 ml/min/1.73 sqM); Phosphorus 3.3 mg/dL (2.5-4.5); Potassium 3.6 mmol/L (3.5-5.1); Sodium 139 mmol/L (137-145); Total Protein 5.5 g/dL (6.3-8.2)
[2020-08-21 05:52] LABS: Glucose,Whole Blood 148 mg/dL (75-99)
[2020-08-21] MEDS: DEXTROSE 5%-0.45% NACL 1,000 ML IV SCH ×2 (05:55→18:54)
[2020-08-21 06:02] LABS: LDH 2566 U/L (313-618)
[2020-08-21] MEDS: POTASSIUM CHLORIDE 10 MEQ in WATER FOR INJECTION 1 100ML.BAG IVPB SCH ×2 (06:03→09:23)
[2020-08-21] MEDS: hydrALAZINE HCL 20 MG/ML 1 ML VIAL IVP PRN (06:19)
--- NOTE | 2020-08-21 07:08 | XR ---
EXAMINATION TYPE: XR chest 1V DATE OF EXAM: 08/21/2020 COMPARISON: 08/20/2020 INDICATION: Covid TECHNIQUE: Single frontal view of the chest is obtained. FINDINGS: The heart size is normal. The pulmonary vasculature is prominent. Diffuse patchy infiltrate is present bilaterally. IMPRESSION: 1. Stable bilateral lung infiltrates
[2020-08-21] MEDS ORDERED: LIDOCAINE 4% CREAM 5 GM TUBE TOPICAL PRN (09:16)
[2020-08-21] MEDS: CHOLECALCIFEROL 1,000 UNIT TAB PO SCH (09:24)
[2020-08-21] MEDS: ASCORBIC ACID 500 MG TAB PO SCH (09:24)
[2020-08-21] MEDS: DOCUSATE 100 MG CAP PO SCH (09:25)
[2020-08-21] MEDS: CYANOCOBALAMIN 500 MCG TAB PO SCH (09:25)
[2020-08-21] MEDS: ENOXAPARIN 80 MG/0.8 ML SYRINGE SQ SCH ×2 (09:25→20:10)
[2020-08-21] MEDS: FAMOTIDINE 20 MG/2 ML VIAL IV SCH ×2 (09:25→20:10)
[2020-08-21] MEDS: THIAMINE 100 MG TAB PO SCH (09:26)
[2020-08-21] MEDS: LEVOTHYROXINE IVP 100 MCG/5 ML VIAL IV SCH (09:26)
[2020-08-21] MEDS: levETIRAcetam IV 500 MG in SODIUM CHLORIDE 0.9% 100 ML IVPB SCH ×2 (09:26→20:09)
[2020-08-21] MEDS: ZINC SULFATE 220 MG CAP PO SCH (09:27)
[2020-08-21] MEDS ORDERED: FUROSEMIDE 10 MG/ML 2 ML VIAL IV ONE (10:02)
[2020-08-21] MEDS: VENLAFAXINE HCL ER 150 MG CAP PO SCH (10:38)
[2020-08-21] MEDS: HYDROcodone/APAP 5-325MG 1 EACH TAB PO PRN (10:42)
--- NOTE | 2020-08-21 11:10 | P.PN ---
Subjective Patient is seen in follow-up for hyponatremia. Sodium level normal today. She is maintained on half-normal saline at 60 mL an hour. Still requiring high amounts of oxygen. Oral intake poor per the nurse. Vital signs are stable. On Airvo. No gross edema noted. Exam discussed with the nurse. Objective - Vital Signs Vital signs: Vital Signs Temp 98.8 F 08/21/20 04:00 Pulse 82 08/21/20 07:00 Resp 24 08/21/20 07:00 BP 156/75 08/21/20 07:00 Pulse Ox 93 L 08/21/20 07:00 Intake & Output 08/20/20 08/21/20 08/21/20 18:59 06:59 18:59 Intake Total 820 910 100 Output Total 1910 1075 100 Balance -1090 -165 0 Weight 99.7 kg 101.3 kg Intake: IV 820 660 100 Dextrose 5% in Water 1, 240 000 ml @ 60 mls/hr IV . [id number] [facility] Rx#:[id number] Dextrose 5%-0.45% NaCl 1, 480 660 000 ml @ 60 mls/hr IV . [id number] [facility] Rx#:[id number] Potassium Chloride 10 meq 100 In Water For Injection 1 100ml.bag @ 100 mls/hr IVPB Q1H [facility] Rx#: [id number] levETIRAcetam IV 500 mg 100 In Sodium Chloride 0.9% 100 ml @ 400 mls/hr IVPB Q12HR [facility] Rx#:[id number] Oral 250 Output: Urine 1910 1075 100 Other: Voiding Method Indwelling Catheter Indwelling Catheter # Bowel Movements 1 - Labs CBC & Chem 7: 08/21/20 04:00 08/21/20 04:00 Labs: Abnormal Lab Results - Last 24 Hours (Table) 08/20/20 08/20/20 08/20/20 Range/Units 11:46 14:29 17:47 RBC (3.80-5.40) m/uL Hgb (11.4-16.0) gm/dL Hct (34.0-46.0) % Lymphocytes # (1.0-4.8) k/uL D-Dimer (<0.60) mg/L FEU Carbon Dioxide (22-30) mmol/L BUN (7-17) mg/dL Glucose (74-99) mg/dL POC Glucose (mg/dL) 148 H 165 H (75-99) mg/dL AST (14-36) U/L ALT (4-34) U/L Alkaline Phosphatase (38-126) U/L Lactate Dehydrogenase (313-618) U/L Creatine Kinase (30-135) U/L C-Reactive Protein (<10.0) mg/L Total Protein (6.3-8.2) g/dL Albumin (3.5-5.0) g/dL Triglycerides 225 H (<150) mg/dL 08/20/20 08/21/20 08/21/20 Range/Units 22:56 04:00 04:00 RBC 2.84 L (3.80-5.40) m/uL Hgb 9.5 L (11.4-16.0) gm/dL Hct 28.3 L (34.0-46.0) % Lymphocytes # 0.7 L (1.0-4.8) k/uL D-Dimer (<0.60) mg/L FEU Carbon Dioxide 31 H (22-30) mmol/L BUN 38 H (7-17) mg/dL Glucose 164 H (74-99) mg/dL POC Glucose (mg/dL) 154 H (75-99) mg/dL AST 78 H (14-36) U/L ALT 233 H (4-34) U/L Alkaline Phosphatase 287 H (38-126) U/L Lactate Dehydrogenase 2566 H (313-618) U/L Creatine Kinase <20 L (30-135) U/L C-Reactive Protein 10.8 H (<10.0) mg/L Total Protein 5.5 L (6.3-8.2) g/dL Albumin 3.0 L (3.5-5.0) g/dL Triglycerides (<150) mg/dL 08/21/20 08/21/20 Range/Units 04:00 05:50 RBC (3.80-5.40) m/uL Hgb (11.4-16.0) gm/dL Hct (34.0-46.0) % Lymphocytes # (1.0-4.8) k/uL D-Dimer 5.26 H (<0.60) mg/L FEU Carbon Dioxide (22-30) mmol/L BUN (7-17) mg/dL Glucose (74-99) mg/dL POC Glucose (mg/dL) 148 H (75-99) mg/dL AST (14-36) U/L ALT (4-34) U/L Alkaline Phosphatase (38-126) U/L Lactate Dehydrogenase (313-618) U/L Creatine Kinase (30-135) U/L C-Reactive Protein (<10.0) mg/L Total Protein (6.3-8.2) g/dL Albumin (3.5-5.0) g/dL Triglycerides (<150) mg/dL Microbiology - Last 24 Hours (Table) 08/18/20 10:08 Urine Culture - Final Urine,Voided Escherichia coli 08/16/20 11:55 Blood Culture - Preliminary Blood No Growth after 96 hours 08/16/20 11:43 Blood Culture - Preliminary Blood No Growth after 96 hours Assessment and Plan Plan: Assessment: 1. Hypernatremia secondary to lack of oral water intake. Patient is not polyuric. Urine osmolality 631 and urine random sodium 47. No evidence of diabetes insipidus. Sodium level is improving. 2. Acute hypoxic respiratory failure secondary to covid 19 pneumonia. 3. History of meningioma and left subdural hemorrhage status post left frontal craniotomy in July 2020. 4. Benign hypertension. Exacerbated by steroids. Stable. 5. Hypokalemia from diuresis and poor intake. Replaced. Plan: Hep-Lock IV fluids. She will be started on TPN today. Wean FiO2. Repeat electrolytes in the morning.
[2020-08-21 11:50] LABS: Glucose,Whole Blood 194 mg/dL (75-99)
[2020-08-21] MEDS ORDERED: POTASSIUM CHLORIDE 20 MEQ in WATER FOR INJECTION 1 100ML.BAG IVPB STA (11:55)
--- NOTE | 2020-08-21 11:57 | P.PN ---
Subjective Progress Note Date: 08/21/20 HISTORY OF PRESENT ILLNESS Ms. Sutherland is a 64 years old female patient of Dr. Siu with past medical history of coronary artery disease, hypertension, history of DVT and pul monary embolism in 2002, fibromyalgia, asthma who presented to the hospital with worsening shortness of breath associated with change in mental status for the past 24 hours. Patient was in [facility] for subdural hemorrhage associated with meningioma in the left frontal lobe. Patient underwent left frontal craniotomy and was discharged on 08/13 on seizure precaution medication and pain medication. Patient's daughter is an RN who checked her oxygen at home which was saturating at 38%. Patient was brought to the hospital by EMS as patient was found unresponsive with her oxygen in the 40s and was placed on a BiPAP. Patient is unable to provide any history as she Is confused. Called patient's who stated that patient was doing well post discharge until last night when she became short of breath and confused. Patient did have acute stroke from the subdural hemorrhage causing right arm and right leg weakness associated with a phase ER. Patient was in the hospital for 6 weeks and recovered from both right upper and lower extremity weakness and a phasia. Patient was smoking at home post discharge. She was evaluated by her daughter who is an RN who insisted on calling EMS as she did not appear well.On evaluation in the ER patient was found to have bilateral groundglass opacities concerning for call with pneumonia. Vital suggested temp of 97.9 pulse 81 blood pressure 122/78 respiratory rate of 20. Call with 19 was positive. WBC 5.8 hemoglobin 10.4. ABG was obtained with a pO2 of 55 pCO2 of 44 . Patient's sodium is 146 chloride 117 BUN 48 creatinine 1.01 glucose 110 AST 74 8079 magnesium 2.5 proBNP 1560 LDH 2556 troponin negative 1 CRP 220. INR is jose vated at 2.6. Pulmonary consult was placed. Patient placed on Solu-Medrol 60 every 6, zinc sulfide 220 vitamin C 1000 mg daily. EKG was normal sinus rhythm with no ST or segment depression or elevation. 1/3 patient assessed in ICU currently on BiPAP. Patient is oriented 2. Patient was not able to tolerate being off BiPAP for even a few minutes to take her medications. Patient is currently on 100% FiO2 on BiPAP saturating at 91- 92% vitals otherwise stable temp of 98.8 pulse 75 respiratory rate 27 blood pressure 129/53. Patient has a drop of hemoglobin from 10.4-8 today with MCV 103. INR is 1.8 subtherapeutic, elevated APTT 50 in origin and d-dimer 0.97. PCO2 is 46 pO2 71 bicarb 28 with a pH of 7.37, sodium 146 chloride 1:15, BUN 48 creatinine 0.87 glucose 125. Alkaline phosphatase has increased to 215 from 1:15, AST increased from 7 to 151 ALT increased from 79 to 201. Ultrasound abdomen ordered to evaluate for liver and gallbladder. 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 Patient is unable to take oral medication will switch patient's medication to IV today 08/18: Patient remains in the intensive care unit on BiPAP. She maintains a pulse ox of 91-96% but quickly drops if BiPAP is removed. She's been afebrile, heart rate 73, blood pressure 146/75. Repeat blood work reveals WBC 6.3, hemoglobin 10, platelet count 173. INR is 3.1. Fibrinogen 572, d-dimer 1.09. Sodium 152, potassium 4.4, chloride 117, CO2 31, BUN 48 and creatinine 0.89. TSH 0.305. ProBNP 1290. C-reactive protein 87.9. CK 22, LDH 2721. Blood sugars running in the 120s and 130s. Repeat chest x-ray reveals continued bilateral airspace disease. Patient has been seen by neurology with recommendations to continue Keppra 500 mg twice daily for seizure prophylaxis. Records from [facility] to be obtained. Patient was started on desmopressin 0.05 mg 1 tablet twice a day for central diabetes insipidus. Vitamin B-12 and folate levels ordered. TSH and ammonia level. Thiamine was started. Patient was also seen by nephrology for hypernatremia and started on normal saline at 50 mL per hour for now. 08/19: Patient remains in the intensive care unit oxygen is down to 80% on BiPAP with pulse ox running between 89 and 92. She has been afebrile, heart rate 73, blood pressure 101/59. Pulse ox drops if BiPAP is removed. We will start a soft diet as she is stating she is hungry. Midline was placed yesterday. Repe at blood work reveals WBC 6.5, hemoglobin 9.2, platelet count 161. D-dimer 2.63, fibrinogen 503, INR 4.1. Creatinine 0.81. Blood sugars run between 146 and 225. Repeat chest x-ray reveals slight improvement of diffuse infiltrate can be compatible with atypical pneumonia. Patient received DDAVP yesterday. She is currently on D5W at 60 mL per hour. She remains on Solu-Medrol 60 mg IV every 6 hours. 08/20: Patient remains in intensive care unit. She is on BiPAP and desats quickly if this is removed down to 75. She is confused and has pulled off her BiPAP. She is able to a very little today due to desaturation. Daughter has been updated during the night of the patient's status. She has been afebrile, heart rate 80, respiratory rate 26-44, blood pressure 169/88, pulse ox 92% on 70% FiO2 on BiPAP. Repeat blood work reveals Gaby BC 6.3, hemoglobin 9.6, platelet count 158. Lymphocytes are 0.7. BUN 36 creatinine 0.72. Blood sugars running between 130 348. Ferritin 2476. AST 92, ALT 198, alkaline phosphatase 294. LDH 2668. CK 0.1, C-reactive protein 22.7. Urine culture is showing gram- negative bacilli. Blood culture no growth after 72 hours 2 specimens. Repeat chest x-ray reveals cardiomegaly with bilateral multifocal acute infiltrates consistent with COVID-19. Patient is continued on IV fluids of D5W at 60 mL per hour and change today to half-normal saline. Patient received 1 dose of IV Lasix this morning. Desmopressin was discontinued as central diabetes insipidus was ruled out. 08/21: The patient is more alert today. She is now on high flow AirVo with FiO2 of 85%. Patient was able to tolerate chopped diet as morning. She was started yesterday on TPN. She is complaining of right shoulder pain which is of chronic nature and Buskirk resumed as well as lidocaine cream started. Patient has been afebrile, heart rate 82, blood pressure 156/75. Respiratory rate 24. Pulse ox 93% on FiO2 of 85%. satellite project site monitor is a sinus rhythm. Repeat chest x-ray reveals stable bilateral lung infiltrates. Repeat blood work reveals WBC 7.4, hemoglobin 9.5. Creatinine 0.73. Blood sugars between 148 and 165. Liver function tests remain elevated with total bilirubin 1, AST 78, ALT 233, alkaline phosphatase 286. LDH is 2566. CK less than 20. C-reactive protein 10.8. Urine culture finalized with E. coli. Blood cultures showing no growth. REVIEW OF SYSTEMS Constitutional: No fever, no chills, no night sweats. No weight change. Reports weakness, reports fatigue, reports daytime sleepiness. EENT: No headache. No blurred vision or double vision, no loss of vision. No loss of Hearing, no ringing in the ears, no dizziness. No nasal drainage or congestion. No epistaxis. No sore throat. Lungs: Reports continued shortness of breath, reports cough, no sputum production. No wheezing. Cardiovascular: No chest pain, no lower extremity edema. No palpitations. No paroxysmal nocturnal dyspnea. No orthopnea. No lightheadedness or dizziness. No syncopal episodes. Abdominal: No abdominal pain. No nausea, vomiting. No diarrhea. No constipation. No bloody or tarry stools. Reports increased appetite. Genitourinary: No dysuria, increased frequency, urgency. No urinary retention. Moses catheter in place. Musculoskeletal: No myalgias. No muscle weakness, no gait dysfunction, no frequent falls. No back pain. No neck pain. Integumentary: No wounds, no lesions. No rash or pruritus. No unusual bruising. Neurologic: No aphasia. No facial droop. Reported change in mentation- improving. No head injury. No headache. No paralysis. No paresthesia. Psychiatric: No depression. No anxiety. No mood swings. Endocrine: No abnormal blood sugars. No weight change. PHYSICAL EXAMINATION Gen: This is a 63-year-old female. She is in the ICU on BiPAP. HEENT: Head is atraumatic, normocephalic. Pupils equal, round. Sclerae is anicteric. NECK: Supple. No JVD. No lymphadenopathy. No thyromegaly. LUNGS: Scattered rhonchi. No wheezes. Mild intercostal retractions. HEART: Regular rate and rhythm. 3/6 systolic murmur. ABDOMEN: Soft. Bowel sounds are present. No masses. No tenderness. Moses catheter in place. EXTREMITIES: No pedal edema. No calf tenderness. NEUROLOGICAL: Patient is awake, alert and oriented to person and place. ASSESSMENT AND PLAN 1. Acute hypoxic respiratory failure secondary to COVID-19 Pneumonia and COPD exacerbation. Consult with pulmonary medicine appreciated. Continue oxygen therapy currently on AirVO. 2. COVID-19 pneumonia. Continue vitamin C, vitamin D, zinc, Solu-Medrol 60 mg IV every 6 hours, Lovenox. 3. COPD exacerbation. Continue Solu-Medrol 60 mg IV every 6 hours, pulmonary consult appreciated. 4. Acute hemorrhagic stroke with acute left subdural hemorrhage with benign tumor status post left frontal craniotomy. Patient was discharged on August 13 from [facility]/rehab facility. Continue Keppra and steroids. Consult with neurology appreciated. 5. Acute toxic metabolic encephalopathy secondary to Covid 19, hyponatremia. Neurology consult appreciated. Continue Keppra for prophylaxis seizure activity. Hold Lyrica. Buskirk resumed for shoulder pain. 6. Central diabetes insipidus ruled out. 7. History of pulmonary embolism and DVT. Continue Lovenox 80 mg subcu every 12 hours. Hold Coumadin. 8. History of coronary artery disease. Continue Lopressor 9. Hypertension. Continue Lopressor 5 mg IV push every 6 hours as needed, hydralazine 10 mg IV push every 6 hours as needed 10. Hypothyroidism. Patient will be resumed on levothyroxine 25 g IV daily. 11. Hyperlipidemia. Hold pravastatin. 12. Recurrent depression. Continue venlafaxine 150 mg oral daily. 13. GI prophylaxis. Pepcid 20 mg IV every 12 hours. 14. DVT prophylaxis. Lovenox subcu. 14. UTI. Patient started on Rocephin. DISCHARGE PLAN To be determined. Impression and plan of care have been directed as dictated by the signing physician. Karyn Tamayo nurse practitioner acting as scribe for signing physician. Objective - Vital Signs Vital signs: Vital Signs Temp 98.8 F 08/21/20 04:00 Pulse 82 08/21/20 07:00 Resp 24 08/21/20 07:00 BP 156/75 08/21/20 07:00 Pulse Ox 93 L 08/21/20 07:00 Intake & Output 08/20/20 08/21/20 08/21/20 18:59 06:59 18:59 Intake Total 820 910 100 Output Total 1910 1075 100 Balance -1090 -165 0 Weight 99.7 kg 101.3 kg Intake: IV 820 660 100 Dextrose 5% in Water 1, 240 000 ml @ 60 mls/hr IV . [id number] [facility] Rx#:[id number] Dextrose 5%-0.45% NaCl 1, 480 660 000 ml @ 60 mls/hr IV . [id number] [facility] Rx#:[id number] Potassium Chloride 10 meq 100 In Water For Injection 1 100ml.bag @ 100 mls/hr IVPB Q1H [facility] Rx#: [id number] levETIRAcetam IV 500 mg 100 In Sodium Chloride 0.9% 100 ml @ 400 mls/hr IVPB Q12HR [facility] Rx#:[id number] Oral 250 Output: Urine 1910 1075 100 Other: Voiding Method Indwelling Catheter Indwelling Catheter # Bowel Movements 1 - Labs CBC & Chem 7: 08/21/20 04:00 08/21/20 04:00 Labs: Abnormal Lab Results - Last 24 Hours (Table) 08/20/20 08/20/20 08/20/20 Range/Units 03:50 11:46 14:29 RBC (3.80-5.40) m/uL Hgb (11.4-16.0) gm/dL Hct (34.0-46.0) % Lymphocytes # (1.0-4.8) k/uL D-Dimer (<0.60) mg/L FEU Carbon Dioxide (22-30) mmol/L BUN (7-17) mg/dL Glucose (74-99) mg/dL POC Glucose (mg/dL) 148 H (75-99) mg/dL Ferritin 2476.2 H (10.0-291.0) ng/mL AST (14-36) U/L ALT (4-34) U/L Alkaline Phosphatase (38-126) U/L Lactate Dehydrogenase (313-618) U/L Creatine Kinase (30-135) U/L C-Reactive Protein (<10.0) mg/L Total Protein (6.3-8.2) g/dL Albumin (3.5-5.0) g/dL Triglycerides 225 H (<150) mg/dL 08/20/20 08/20/20 08/21/20 Range/Units 17:47 22:56 04:00 RBC (3.80-5.40) m/uL Hgb (11.4-16.0) gm/dL Hct (34.0-46.0) % Lymphocytes # (1.0-4.8) k/uL D-Dimer (<0.60) mg/L FEU Carbon Dioxide 31 H (22-30) mmol/L BUN 38 H (7-17) mg/dL Glucose 164 H (74-99) mg/dL POC Glucose (mg/dL) 165 H 154 H (75-99) mg/dL Ferritin (10.0-291.0) ng/mL AST 78 H (14-36) U/L ALT 233 H (4-34) U/L Alkaline Phosphatase 287 H (38-126) U/L Lactate Dehydrogenase 2566 H (313-618) U/L Creatine Kinase <20 L (30-135) U/L C-Reactive Protein 10.8 H (<10.0) mg/L Total Protein 5.5 L (6.3-8.2) g/dL Albumin 3.0 L (3.5-5.0) g/dL Triglycerides (<150) mg/dL 08/21/20 08/21/20 08/21/20 Range/Units 04:00 04:00 05:50 RBC 2.84 L (3.80-5.40) m/uL Hgb 9.5 L (11.4-16.0) gm/dL Hct 28.3 L (34.0-46.0) % Lymphocytes # 0.7 L (1.0-4.8) k/uL D-Dimer 5.26 H (<0.60) mg/L FEU Carbon Dioxide (22-30) mmol/L BUN (7-17) mg/dL Glucose (74-99) mg/dL POC Glucose (mg/dL) 148 H (75-99) mg/dL Ferritin (10.0-291.0) ng/mL AST (14-36) U/L ALT (4-34) U/L Alkaline Phosphatase (38-126) U/L Lactate Dehydrogenase (313-618) U/L Creatine Kinase (30-135) U/L C-Reactive Protein (<10.0) mg/L Total Protein (6.3-8.2) g/dL Albumin (3.5-5.0) g/dL Triglycerides (<150) mg/dL Microbiology - Last 24 Hours (Table) 08/18/20 10:08 Urine Culture - Final Urine,Voided Escherichia coli 08/16/20 11:55 Blood Culture - Preliminary Blood No Growth after 96 hours 08/16/20 11:43 Blood Culture - Preliminary Blood No Growth after 96 hours
[2020-08-21 12:41] LABS: Ferritin 2279.5 ng/mL (10.0-291.0)
--- NOTE | 2020-08-21 13:41 | P.PN ---
Subjective Progress Note Date: 08/21/20 Principal diagnosis: Acute hypoxic respiratory failure secondary to covid 19 pneumonitis. Patient was reevaluated today on 08/18/2020, remains in the ICU, she seems to be now almost BiPAP dependent. Patient was admitted 2 days ago, she has covid 19 pneumonia. Patient was out of the window for remdesivir, received 2 units of convalescent plasma. Chest x-ray shows diffuse interstitial infiltrates. Overall pulmonary status is marginal at best. Patient seems to be quite ill, and I have a strong feeling that the patient may eventually require intubation and mechanical ventilation. O2 saturation is marginal. She is being evaluated by nephrology for hyponatremia felt to be secondary to lack of water intake. Patient is not polyuric, and her urine osmolality does not point to diabetes insipidus. Patient did have previous history of meningioma and left subdural hemorrhage she had previous left frontal craniotomy in July of 2020. Sodium level today went as high as 152, and I have switched the patient to D5W. Looking at the chart, patient had recent craniotomy at [facility], and she was discharged on 08/13/2020. Her other medical problems included history of DVT and pulmonary embolism, history of hypertension, fibromyalgia, and depression as well as hypothyroidism. Reevaluated today on 08/19/2020, patient remains in the ICU, presently on BiPAP, with IPAP of 12 and EPAP 5, FiO2 80% I cut it down to 70%. She is on D5W at 60 mL/h. Clearly her urine tests and her osmolality as well as specific gravity do not point to diabetes insipidus. Sodium is correcting nicely with D5W. Has discontinued DDAVP. Patient is being treated for acute hypoxic respiratory failure secondary to Covid 19 pneumonitis. Patient was outside the window for remdesivir but she did receive 2 units of convalescent plasma. Overall I believe the patient is making slight improvement, hence I was able to titrate her FiO2 down to 70%. Remains on Lovenox 80 mg subcu twice a day and she is also on Solu-Medrol. She is also on the Covid 19 cocktails. Reevaluated today on 08/20/2020, patient remains in the ICU, she is presently on BiPAP with IPAP of 12 and EPAP of 5, O2 saturations 96%, patient could not swallow, hence we attempted placement of the nasogastric tube, did not tolerate that very well, hence I will go ahead and recommend a PICC line and TPN on this patient and set of enteral feeding. Not much change noted since the patient was admitted, she remains marginal at best. IV fluids remains at D545 at 60 mL per hour. And we have consulted dietitian to evaluate for TPN. Chest x-ray continues to show diffuse airspace disease consistent with Covid 19 pneumonitis. CBC is relatively normal basic metabolic profile is normal renal profile is normal. LDH is 2668 and C-reactive protein is 22.7. Patient was reevaluated today on 08/21/2020, patient remains in the ICU, remains on airvo, patient is on 60 L flow and 84% FiO2. And her O2 saturation is 92%. Patient is fatigued, but seems to be in no distress. Comfortable with the present high flow oxygenation. Patient is still not eating much, hence we'll arrange for TPN to be started today. Via PICC line. Chest x-ray continues to show worsening facial infiltrates. More diuretics will be given to the patient today, one dose of Lasix will be given 40 mg times one. Basic metabolic profile is normal LDH remains high at 2566, C-reactive protein is 10.8. Objective - Vital Signs Vital signs: Vital Signs Temp 99.2 F 08/21/20 08:00 Pulse 89 08/21/20 13:00 Resp 22 08/21/20 13:00 BP 139/70 08/21/20 13:00 Pulse Ox 95 08/21/20 13:00 Intake & Output 08/20/20 08/21/20 08/21/20 18:59 06:59 18:59 Intake Total 820 910 840 Output Total 1910 1075 635 Balance -1090 -165 205 Weight 99.7 kg 101.3 kg Intake: IV 820 660 340 Dextrose 5% in Water 1, 240 000 ml @ 60 mls/hr IV . [id number] [facility] Rx#:[id number] Dextrose 5%-0.45% NaCl 1, 480 660 240 000 ml @ 20 mls/hr IV . Q24H [facility] Rx#:[id number] Potassium Chloride 10 meq 100 In Water For Injection 1 100ml.bag @ 100 mls/hr IVPB Q1H [facility] Rx#: [id number] levETIRAcetam IV 500 mg 100 In Sodium Chloride 0.9% 100 ml @ 400 mls/hr IVPB Q12HR [facility] Rx#:[id number] Intake, IV Titration 400 Amount Potassium Chloride 10 meq 100 In Water For Injection 1 100ml.bag @ 100 mls/hr IVPB Q1H [facility] Rx#: [id number] Potassium Chloride 20 meq 100 In Water For Injection 1 100ml.bag @ 50 mls/hr IVPB ONCE [facility] Rx#: [id number] cefTRIAXone 1 gm In 100 Sodium Chloride 0.9% 50 ml @ 100 mls/hr IVPB Q24HR [facility] Rx#:[id number] levETIRAcetam IV 500 mg 100 In Sodium Chloride 0.9% 100 ml @ 400 mls/hr IVPB Q12HR [facility] Rx#:[id number] Oral 250 100 Output: Urine 1910 1075 635 Other: Voiding Method Indwelling Catheter Indwelling Catheter Indwelling Catheter # Bowel Movements 1 - Exam Gen: This is a 63-year-old female. on airvo HEENT: Head is atraumatic, normocephalic. Pupils equal, round. Sclerae is anicteric. NECK: Supple. No JVD. No lymphadenopathy. No thyromegaly. LUNGS: Scattered rhonchi. No wheezes. Mild intercostal retractions. HEART: Regular rate and rhythm. 3/6 systolic murmur. ABDOMEN: Soft. Bowel sounds are present. No masses. No tenderness. Moses catheter in place. EXTREMITIES: No pedal edema. No calf tenderness. NEUROLOGICAL: Patient is awake, alert and oriented x3. Cranial nerves 2 through 12 are grossly intact. - Labs CBC & Chem 7: 08/21/20 04:00 08/21/20 04:00 Labs: Abnormal Lab Results - Last 24 Hours (Table) 08/20/20 08/20/20 08/20/20 Range/Units 14:29 17:47 22:56 RBC (3.80-5.40) m/uL Hgb (11.4-16.0) gm/dL Hct (34.0-46.0) % Lymphocytes # (1.0-4.8) k/uL D-Dimer (<0.60) mg/L FEU Carbon Dioxide (22-30) mmol/L BUN (7-17) mg/dL Glucose (74-99) mg/dL POC Glucose (mg/dL) 165 H 154 H (75-99) mg/dL Ferritin (10.0-291.0) ng/mL AST (14-36) U/L ALT (4-34) U/L Alkaline Phosphatase (38-126) U/L Lactate Dehydrogenase (313-618) U/L Creatine Kinase (30-135) U/L C-Reactive Protein (<10.0) mg/L Total Protein (6.3-8.2) g/dL Albumin (3.5-5.0) g/dL Triglycerides 225 H (<150) mg/dL 08/21/20 08/21/20 08/21/20 Range/Units 04:00 04:00 04:00 RBC 2.84 L (3.80-5.40) m/uL Hgb 9.5 L (11.4-16.0) gm/dL Hct 28.3 L (34.0-46.0) % Lymphocytes # 0.7 L (1.0-4.8) k/uL D-Dimer 5.26 H (<0.60) mg/L FEU Carbon Dioxide 31 H (22-30) mmol/L BUN 38 H (7-17) mg/dL Glucose 164 H (74-99) mg/dL POC Glucose (mg/dL) (75-99) mg/dL Ferritin 2279.5 H (10.0-291.0) ng/mL AST 78 H (14-36) U/L ALT 233 H (4-34) U/L Alkaline Phosphatase 287 H (38-126) U/L Lactate Dehydrogenase 2566 H (313-618) U/L Creatine Kinase <20 L (30-135) U/L C-Reactive Protein 10.8 H (<10.0) mg/L Total Protein 5.5 L (6.3-8.2) g/dL Albumin 3.0 L (3.5-5.0) g/dL Triglycerides (<150) mg/dL 08/21/20 08/21/20 Range/Units 05:50 11:48 RBC (3.80-5.40) m/uL Hgb (11.4-16.0) gm/dL Hct (34.0-46.0) % Lymphocytes # (1.0-4.8) k/uL D-Dimer (<0.60) mg/L FEU Carbon Dioxide (22-30) mmol/L BUN (7-17) mg/dL Glucose (74-99) mg/dL POC Glucose (mg/dL) 148 H 194 H (75-99) mg/dL Ferritin (10.0-291.0) ng/mL AST (14-36) U/L ALT (4-34) U/L Alkaline Phosphatase (38-126) U/L Lactate Dehydrogenase (313-618) U/L Creatine Kinase (30-135) U/L C-Reactive Protein (<10.0) mg/L Total Protein (6.3-8.2) g/dL Albumin (3.5-5.0) g/dL Triglycerides (<150) mg/dL Microbiology - Last 24 Hours (Table) 08/18/20 10:08 Urine Culture - Final Urine,Voided Escherichia coli 08/16/20 11:55 Blood Culture - Preliminary Blood No Growth after 96 hours 08/16/20 11:43 Blood Culture - Preliminary Blood No Growth after 96 hours Assessment and Plan Assessment: Impression: Acute hypoxic respiratory failure secondary to covid 19 pneumonia. Recent history of hemorrhagic stroke with left subdural hematoma status post left frontal craniotomy Acute toxic metabolic encephalopathy Mild hypernatremia, clearly not related to diabetes insipidus based on the urinary findings. However the patient will improve with liberalizing free water but no need for DDAVP. History of pulmonary embolism and DVT. On Lovenox. History of underlying coronary artery disease. Benign essential hypertension. Hypothyroidism. Dyslipidemia. Recommendation: Continue high flow oxygen.. Titrate FiO2 accordingly. TPN via PICC line today. Continue the Covid 19 cocktail. Continue Solu-Medrol. Decrease of the fluid to KVO since the patient is going to be started on TPN. Gentle diuresis. Continue GI and DVT prophylaxis. Continue Lovenox. Overall prognosis remains poor and guarded. Time with Patient: Less than 30
[2020-08-21] MEDS ORDERED: LIDOCAINE 1% INJ 10MG/ML (20 ML MDV) SQ ONE (13:47)
--- NOTE | 2020-08-21 14:15 | XR ---
EXAMINATION TYPE: XR chest 1V portable DATE OF EXAM: 08/21/2020 COMPARISON: 08/21/2020 INDICATION: PICC line TECHNIQUE: Single frontal view of the chest is obtained. FINDINGS: The heart size is mildly prominent. The pulmonary vasculature is indistinct. Diffuse patchy infiltrates are present bilaterally. Findings are worsening over the interval. Findings present on the right with the tip in the right atrium. IMPRESSION: 1. Worsening bilateral lung infiltrates. 2. Placement of a PICC line with the tip in the right atrium
--- NOTE | 2020-08-21 14:38 | IR ---
PICC LINE PLACEMENT: HISTORY: Infection requiring long-term antibiotic therapy PROCEDURE: Ultrasound guidance of PICC line placement. LEAD CASE MANAGER: Dr. Belle. COMPLICATIONS: None ANESTHESIA: 1. 1% Lidocaine locally. FINDINGS/TECHNIQUE: The procedure was explained to the patient. The risks, complications, benefits and alternatives were discussed and any questions were answered. Informed consent was obtained. The patient was placed supine on the fluoroscopic table and prepped and draped in the usual sterile formerly [facility] ion. Utilizing a 21 gauge needle and sonographic guidance, access in right cephalic vein was achiev ed and there is placement of a 0.018 guidewire. The vein is patent. A 5-F. sheath was placed over t he guidewire. The guidewire and dilator were removed and a 5-F. Double lumen PICC line was placed th rough the sheath with the chest x-ray confirming the tip at the level of the SVC. The sheath was rem meagan, the catheter was flushed and sutured into position. The patient was stable throughout the proc edure and remained stable upon discharge from the Department of Radiology. The vein puncture was patent under ultrasound. A ferreira scale image was obtained to document patency of the vein punctured. All elements of the maximal barrier technique were utilized. IMPRESSION: 1. Successful PICC line placement under ultrasound performed bedside within the ICU.
[2020-08-21] MEDS ORDERED: DEXTROSE 5% IN WATER 100 ML with AMIODARONE 150 MG IV ONE (17:02)
[2020-08-21] MEDS ORDERED: AMIODARONE 360 MG in DEXTROSE 5% IN WATER 200 ML IV ONE ×2 (17:30)
[2020-08-21 17:45] LABS: Glucose,Whole Blood 156 mg/dL (75-99)
[2020-08-21] MEDS: MVI, ADULT NO.4 WITH VIT K 10 ML, TRACE (CONC-1ML/DOSE) 1 ML in AMINO ACID 5%-D20W+LYTE... IV SCH ×3 (17:46)
[2020-08-21] MEDS ORDERED: DILTIAZEM DRIP BOLUS FROM BAG 1 MG SOLN IV ONE (18:32)
[2020-08-21] MEDS: DILTIAZEM 125 MG in SODIUM CHLORIDE 0.9% 100 ML IV SCH (18:56)
[2020-08-21] MEDS: MELATONIN 5 MG TABLET PO SCH (20:10)
[2020-08-21] MEDS ORDERED: AMIODARONE 450 MG in DEXTROSE 5% IN WATER 250 ML IV SCH ×2 (23:02)
[2020-08-21 23:06] LABS: Glucose,Whole Blood 300 mg/dL (75-99)
[2020-08-22] MEDS: DILTIAZEM 125 MG in SODIUM CHLORIDE 0.9% 100 ML IV SCH ×2 (03:08→09:16)
[2020-08-22 04:52] LABS: HCT 27.8 % (34.0-46.0); HGB 9.4 gm/dL (11.4-16.0); MCH 33.6 pg (25.0-35.0); MCHC 33.6 g/dL (31.0-37.0); MCV 99.9 fL (80.0-100.0); Macrocytosis Slight; Mean Platelet Volume 7.7; Platelet Count 176 k/uL (150-450); RBC 2.79 m/uL (3.80-5.40); RDW 15.2 % (11.5-15.5)
[2020-08-22] MEDS: methylPREDNISolone SOD SUCCI 125 MG/2 ML VIAL IV SCH ×3 (05:54→17:48)
[2020-08-22 06:03] LABS: Glucose,Whole Blood 250 mg/dL (75-99)
[2020-08-22 06:04] LABS: ALT 288 U/L (4-34); AST 75 U/L (14-36); African American GFR (CKD) >90 (>60 ml/min/1.73 sqM); Albumin 2.8 g/dL (3.5-5.0); Alkaline Phosphatase 282 U/L (38-126); Anion Gap 1 mmol/L; Blood Urea Nitrogen 40 mg/dL (7-17); C Reactive Protein 8.8 mg/L (<10.0); Calcium 8.6 mg/dL (8.4-10.2); Carbon Dioxide 30 mmol/L (22-30); Chloride 106 mmol/L (98-107); Creatine Kinase <20 U/L (30-135); Glucose 228 mg/dL (74-99); Magnesium 2.4 mg/dL (1.6-2.3); Non-African American GFR(CKD) 88 (>60 ml/min/1.73 sqM); Phosphorus 3.1 mg/dL (2.5-4.5); Potassium 4.4 mmol/L (3.5-5.1); Sodium 137 mmol/L (137-145); Total Bilirubin 0.6 mg/dL (0.2-1.3); Total Protein 5.3 g/dL (6.3-8.2)
[2020-08-22] MEDS: INSULIN ASPART (NovoLOG) 100 UNIT/ML VIAL SQ SCH ×3 (06:05→17:47)
[2020-08-22 06:28] LABS: Anisocytosis (M) Present; Band Neutrophils % 9 %; Metamyelocytes # (M) 0.08 k/uL (0); Metamyelocytes % 1 %; Monocytes # (M) 0.08 k/uL (0-1.0); Neutrophils % (M) 80 %; Nucleated Red Blood Cells 0 /100 WBC (0-0); Total Cells Counted 200
[2020-08-22 06:29] LABS: Polychromasia Present
[2020-08-22 06:32] LABS: LDH 2469 U/L (313-618)
--- NOTE | 2020-08-22 07:43 | XR ---
EXAMINATION TYPE: XR chest 1V DATE OF EXAM: 08/22/2020 COMPARISON: 08/21/2020 INDICATION: Covid TECHNIQUE: Single frontal view of the chest is obtained. FINDINGS: The heart size is normal. The pulmonary vasculature is normal. Diffuse patchy infiltrate is present bilaterally. This has slight improvement over the interval. PICC line enters on the right with the tip in the distal superior vena cava region IMPRESSION: 1. Slight improvement of diffuse patchy infiltrates throughout the bilateral lung mccauley
[2020-08-22] MEDS: INSULIN DETEMIR (LEVEMIR) 100 UNIT/ML SYR SQ SCH ×2 (09:03→20:22)
[2020-08-22] MEDS: ASCORBIC ACID 500 MG TAB PO SCH (09:03)
[2020-08-22] MEDS: AMIODARONE 200 MG TAB PO SCH ×2 (09:03→20:22)
[2020-08-22] MEDS: DOCUSATE 100 MG CAP PO SCH (09:04)
[2020-08-22] MEDS: ENOXAPARIN 80 MG/0.8 ML SYRINGE SQ SCH ×2 (09:04→20:22)
[2020-08-22] MEDS: FAMOTIDINE 20 MG/2 ML VIAL IV SCH ×2 (09:04→20:22)
[2020-08-22] MEDS: CYANOCOBALAMIN 500 MCG TAB PO SCH (09:04)
[2020-08-22] MEDS: CHOLECALCIFEROL 1,000 UNIT TAB PO SCH (09:05)
[2020-08-22] MEDS: ZINC SULFATE 220 MG CAP PO SCH (09:05)
[2020-08-22] MEDS: LEVOTHYROXINE IVP 100 MCG/5 ML VIAL IV SCH (09:05)
[2020-08-22] MEDS: THIAMINE 100 MG TAB PO SCH (09:05)
[2020-08-22] MEDS: METOPROLOL TARTRATE 50 MG TAB PO SCH ×2 (09:05→20:22)
[2020-08-22] MEDS: VENLAFAXINE HCL ER 150 MG CAP PO SCH (09:05)
[2020-08-22] MEDS: levETIRAcetam IV 500 MG in SODIUM CHLORIDE 0.9% 100 ML IVPB SCH ×2 (09:09→20:24)
[2020-08-22] MEDS: HYDROcodone/APAP 5-325MG 1 EACH TAB PO PRN (09:14)
--- NOTE | 2020-08-22 10:05 | P.PN ---
Subjective Patient is seen in follow-up for hypernatremia. Sodium level 137 today. She is maintained on half-normal saline at 60 mL an hour. Still requiring high amounts of oxygen. Oral intake poor per the nurse. Receiving TPN. Vital signs are stable. On Airvo. No gross edema noted. Exam discussed with the nurse. Objective - Vital Signs Vital signs: Vital Signs Temp 98.0 F 08/22/20 04:00 Pulse 120 H 08/22/20 10:00 Resp 31 H 08/22/20 10:00 BP 126/79 08/22/20 10:00 Pulse Ox 95 08/22/20 10:00 Intake & Output 08/21/20 08/22/20 08/22/20 18:59 06:59 18:59 Intake Total 1076.6 1339.25 448.6 Output Total 850 745 255 Balance 226.6 594.25 193.6 Intake: IV 360 1182.7 356.6 Amiodarone 360 mg In 99.9 Dextrose 5% in Water 200 ml @ 1 MG/MIN 33.333 mls/ hr IV .Q6H [facility] Rx#: [id number] Amiodarone 450 mg In 132.8 16.6 Dextrose 5% in Water 250 ml @ 0.5 MG/MIN 16.667 mls/hr IV .Q15H [facility] Rx#: [id number] Dextrose 5%-0.45% NaCl 1, 260 200 80 000 ml @ 20 mls/hr IV . Q24H [facility] Rx#:[id number] Mvi, Adult No.4 with Vit 650 260 K 10 ml Trace (Conc-1Ml/ Dose) 1 ml In Amino Acid 5%-D20w+Lytes*E* 1,000 ml @ 65 mls/hr IV .[id number] [facility] Rx#:[id number] Potassium Chloride 10 meq 100 In Water For Injection 1 100ml.bag @ 100 mls/hr IVPB Q1H [facility] Rx#: [id number] levETIRAcetam IV 500 mg 100 In Sodium Chloride 0.9% 100 ml @ 400 mls/hr IVPB Q12HR [facility] Rx#:[id number] Intake, IV Titration 566.6 156.55 92 Amount Amiodarone 360 mg In 100 Dextrose 5% in Water 200 ml @ 1 MG/MIN 33.333 mls/ hr IV .Q6H [facility] Rx#: [id number] Amiodarone 450 mg In 66.6 33.3 Dextrose 5% in Water 250 ml @ 0.5 MG/MIN 16.667 mls/hr IV .Q15H [facility] Rx#: [id number] Diltiazem 125 mg In 123.25 92 Sodium Chloride 0.9% 100 ml @ Per Protocol IV .Q0M [facility] Rx#:[id number] Potassium Chloride 10 meq 100 In Water For Injection 1 100ml.bag @ 100 mls/hr IVPB Q1H [facility] Rx#: [id number] Potassium Chloride 20 meq 100 In Water For Injection 1 100ml.bag @ 50 mls/hr IVPB ONCE [facility] Rx#: [id number] cefTRIAXone 1 gm In 100 Sodium Chloride 0.9% 50 ml @ 100 mls/hr IVPB Q24HR [facility] Rx#:[id number] levETIRAcetam IV 500 mg 100 In Sodium Chloride 0.9% 100 ml @ 400 mls/hr IVPB Q12HR [facility] Rx#:[id number] Oral 150 Output: Urine 850 745 255 Other: Voiding Method Indwelling Catheter Indwelling Catheter - Labs CBC & Chem 7: 08/22/20 04:30 08/22/20 04:30 Labs: Abnormal Lab Results - Last 24 Hours (Table) 08/21/20 08/21/20 08/21/20 Range/Units 04:00 11:48 17:43 RBC (3.80-5.40) m/uL Hgb (11.4-16.0) gm/dL Hct (34.0-46.0) % Lymphocytes # (Manual) (1.0-4.8) k/uL Metamyelocytes # (Man) (0) k/uL BUN (7-17) mg/dL Glucose (74-99) mg/dL POC Glucose (mg/dL) 194 H 156 H (75-99) mg/dL Magnesium (1.6-2.3) mg/dL Ferritin 2279.5 H (10.0-291.0) ng/mL AST (14-36) U/L ALT (4-34) U/L Alkaline Phosphatase (38-126) U/L Lactate Dehydrogenase (313-618) U/L Creatine Kinase (30-135) U/L Total Protein (6.3-8.2) g/dL Albumin (3.5-5.0) g/dL 08/21/20 08/22/20 08/22/20 Range/Units 23:03 04:30 04:30 RBC 2.79 L (3.80-5.40) m/uL Hgb 9.4 L (11.4-16.0) gm/dL Hct 27.8 L (34.0-46.0) % Lymphocytes # (Manual) 0.80 L (1.0-4.8) k/uL Metamyelocytes # (Man) 0.08 H (0) k/uL BUN 40 H (7-17) mg/dL Glucose 228 H (74-99) mg/dL POC Glucose (mg/dL) 300 H (75-99) mg/dL Magnesium 2.4 H (1.6-2.3) mg/dL Ferritin (10.0-291.0) ng/mL AST 75 H (14-36) U/L ALT 288 H (4-34) U/L Alkaline Phosphatase 282 H (38-126) U/L Lactate Dehydrogenase 2469 H (313-618) U/L Creatine Kinase <20 L (30-135) U/L Total Protein 5.3 L (6.3-8.2) g/dL Albumin 2.8 L (3.5-5.0) g/dL 08/22/20 Range/Units 06:01 RBC (3.80-5.40) m/uL Hgb (11.4-16.0) gm/dL Hct (34.0-46.0) % Lymphocytes # (Manual) (1.0-4.8) k/uL Metamyelocytes # (Man) (0) k/uL BUN (7-17) mg/dL Glucose (74-99) mg/dL POC Glucose (mg/dL) 250 H (75-99) mg/dL Magnesium (1.6-2.3) mg/dL Ferritin (10.0-291.0) ng/mL AST (14-36) U/L ALT (4-34) U/L Alkaline Phosphatase (38-126) U/L Lactate Dehydrogenase (313-618) U/L Creatine Kinase (30-135) U/L Total Protein (6.3-8.2) g/dL Albumin (3.5-5.0) g/dL Microbiology - Last 24 Hours (Table) 08/16/20 11:43 Blood Culture - Preliminary Blood No Growth after 120 hours 08/16/20 11:55 Blood Culture - Preliminary Blood No Growth after 120 hours Assessment and Plan Plan: Assessment: 1. Hypernatremia secondary to lack of oral water intake. Patient is not polyuric. Urine osmolality 631 and urine random sodium 47. No evidence of diabetes insipidus. Hypernatremia resolved. 2. Acute hypoxic respiratory failure secondary to covid 19 pneumonia. 3. History of meningioma and left subdural hemorrhage status post left frontal craniotomy in July 2020. 4. Benign hypertension. Exacerbated by steroids. Stable. 5. Hypokalemia from diuresis and poor intake. Status post placement. Resolved. Plan: Hep-Lock IV fluids. Receiving TPN. I will sign off. Please call with any further questions or concerns.
--- NOTE | 2020-08-22 10:37 | P.PN ---
Subjective Progress Note Date: 08/22/20 HISTORY OF PRESENT ILLNESS Ms. Sutherland is a 64 years old female patient of Dr. Siu with past medical history of coronary artery disease, hypertension, history of DVT and pul monary embolism in 2002, fibromyalgia, asthma who presented to the hospital with worsening shortness of breath associated with change in mental status for the past 24 hours. Patient was in [facility] for subdural hemorrhage associated with meningioma in the left frontal lobe. Patient underwent left frontal craniotomy and was discharged on 08/13 on seizure precaution medication and pain medication. Patient's daughter is an RN who checked her oxygen at home which was saturating at 38%. Patient was brought to the hospital by EMS as patient was found unresponsive with her oxygen in the 40s and was placed on a BiPAP. Patient is unable to provide any history as she Is confused. Called patient's who stated that patient was doing well post discharge until last night when she became short of breath and confused. Patient did have acute stroke from the subdural hemorrhage causing right arm and right leg weakness associated with a phase ER. Patient was in the hospital for 6 weeks and recovered from both right upper and lower extremity weakness and a phasia. Patient was smoking at home post discharge. She was evaluated by her daughter who is an RN who insisted on calling EMS as she did not appear well.On evaluation in the ER patient was found to have bilateral groundglass opacities concerning for call with pneumonia. Vital suggested temp of 97.9 pulse 81 blood pressure 122/78 respiratory rate of 20. Call with 19 was positive. WBC 5.8 hemoglobin 10.4. ABG was obtained with a pO2 of 55 pCO2 of 44 . Patient's sodium is 146 chloride 117 BUN 48 creatinine 1.01 glucose 110 AST 74 8079 magnesium 2.5 proBNP 1560 LDH 2556 troponin negative 1 CRP 220. INR is jose vated at 2.6. Pulmonary consult was placed. Patient placed on Solu-Medrol 60 every 6, zinc sulfide 220 vitamin C 1000 mg daily. EKG was normal sinus rhythm with no ST or segment depression or elevation. 1/3 patient assessed in ICU currently on BiPAP. Patient is oriented 2. Patient was not able to tolerate being off BiPAP for even a few minutes to take her medications. Patient is currently on 100% FiO2 on BiPAP saturating at 91- 92% vitals otherwise stable temp of 98.8 pulse 75 respiratory rate 27 blood pressure 129/53. Patient has a drop of hemoglobin from 10.4-8 today with MCV 103. INR is 1.8 subtherapeutic, elevated APTT 50 in origin and d-dimer 0.97. PCO2 is 46 pO2 71 bicarb 28 with a pH of 7.37, sodium 146 chloride 1:15, BUN 48 creatinine 0.87 glucose 125. Alkaline phosphatase has increased to 215 from 1:15, AST increased from 7 to 151 ALT increased from 79 to 201. Ultrasound abdomen ordered to evaluate for liver and gallbladder. 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 Patient is unable to take oral medication will switch patient's medication to IV today 08/18: Patient remains in the intensive care unit on BiPAP. She maintains a pulse ox of 91-96% but quickly drops if BiPAP is removed. She's been afebrile, heart rate 73, blood pressure 146/75. Repeat blood work reveals WBC 6.3, hemoglobin 10, platelet count 173. INR is 3.1. Fibrinogen 572, d-dimer 1.09. Sodium 152, potassium 4.4, chloride 117, CO2 31, BUN 48 and creatinine 0.89. TSH 0.305. ProBNP 1290. C-reactive protein 87.9. CK 22, LDH 2721. Blood sugars running in the 120s and 130s. Repeat chest x-ray reveals continued bilateral airspace disease. Patient has been seen by neurology with recommendations to continue Keppra 500 mg twice daily for seizure prophylaxis. Records from [facility] to be obtained. Patient was started on desmopressin 0.05 mg 1 tablet twice a day for central diabetes insipidus. Vitamin B-12 and folate levels ordered. TSH and ammonia level. Thiamine was started. Patient was also seen by nephrology for hypernatremia and started on normal saline at 50 mL per hour for now. 08/19: Patient remains in the intensive care unit oxygen is down to 80% on BiPAP with pulse ox running between 89 and 92. She has been afebrile, heart rate 73, blood pressure 101/59. Pulse ox drops if BiPAP is removed. We will start a soft diet as she is stating she is hungry. Midline was placed yesterday. Repe at blood work reveals WBC 6.5, hemoglobin 9.2, platelet count 161. D-dimer 2.63, fibrinogen 503, INR 4.1. Creatinine 0.81. Blood sugars run between 146 and 225. Repeat chest x-ray reveals slight improvement of diffuse infiltrate can be compatible with atypical pneumonia. Patient received DDAVP yesterday. She is currently on D5W at 60 mL per hour. She remains on Solu-Medrol 60 mg IV every 6 hours. 08/20: Patient remains in intensive care unit. She is on BiPAP and desats quickly if this is removed down to 75. She is confused and has pulled off her BiPAP. She is able to a very little today due to desaturation. Daughter has been updated during the night of the patient's status. She has been afebrile, heart rate 80, respiratory rate 26-44, blood pressure 169/88, pulse ox 92% on 70% FiO2 on BiPAP. Repeat blood work reveals Gaby BC 6.3, hemoglobin 9.6, platelet count 158. Lymphocytes are 0.7. BUN 36 creatinine 0.72. Blood sugars running between 130 348. Ferritin 2476. AST 92, ALT 198, alkaline phosphatase 294. LDH 2668. CK 0.1, C-reactive protein 22.7. Urine culture is showing gram- negative bacilli. Blood culture no growth after 72 hours 2 specimens. Repeat chest x-ray reveals cardiomegaly with bilateral multifocal acute infiltrates consistent with COVID-19. Patient is continued on IV fluids of D5W at 60 mL per hour and change today to half-normal saline. Patient received 1 dose of IV Lasix this morning. Desmopressin was discontinued as central diabetes insipidus was ruled out. 08/21: The patient is more alert today. She is now on high flow AirVo with FiO2 of 85%. Patient was able to tolerate chopped diet as morning. She was started yesterday on TPN. She is complaining of right shoulder pain which is of chronic nature and [place] resumed as well as lidocaine cream started. Patient has been afebrile, heart rate 82, blood pressure 156/75. Respiratory rate 24. Pulse ox 93% on FiO2 of 85%. monitoring manager is a sinus rhythm. Repeat chest x-ray reveals stable bilateral lung infiltrates. Repeat blood work reveals WBC 7.4, hemoglobin 9.5. Creatinine 0.73. Blood sugars between 148 and 165. Liver function tests remain elevated with total bilirubin 1, AST 78, ALT 233, alkaline phosphatase 286. LDH is 2566. CK less than 20. C-reactive protein 10.8. Urine culture finalized with E. coli. Blood cultures showing no growth. 08/22: Patient remains in the intensive care unit. Oxygen is down to 70% with pulse ox of 95%. Heart rate is 140 and patient went into atrial fibrillation currently transitioned to oral amiodarone and Cardizem drip. TPN was started and patient ate 50% of her breakfast this morning. She has been afebrile. Blood pressure 147/83. Repeat blood work reveals WBC 8, hemoglobin 9.4. Blood sugars running between 228 and 300. Electrolytes normal, creatinine 0.72. Phosphorus 3.1, magnesium 2.4. Ferritin 2011, total bilirubin 0.6, AST 75, ALT 288, alkaline phosphatase 282. LDH 2469. CK less than 20. REVIEW OF SYSTEMS Constitutional: No fever, no chills, no night sweats. No weight change. Reports weakness, reports fatigue, reports daytime sleepiness. EENT: No headache. No blurred vision or double vision, no loss of vision. No loss of Hearing, no ringing in the ears, no dizziness. No nasal drainage or congestion. No epistaxis. No sore throat. Lungs: Reports continued shortness of breath, reports cough, no sputum production. No wheezing. Cardiovascular: No chest pain, no lower extremity edema. No palpitations. No paroxysmal nocturnal dyspnea. No orthopnea. No lightheadedness or dizziness. No syncopal episodes. Abdominal: No abdominal pain. No nausea, vomiting. No diarrhea. No constipation. No bloody or tarry stools. Reports increased appetite. Genitourinary: No dysuria, increased frequency, urgency. No urinary retention. Moses catheter in place. Musculoskeletal: No myalgias. No muscle weakness, no gait dysfunction, no frequent falls. No back pain. No neck pain. Integumentary: No wounds, no lesions. No rash or pruritus. No unusual bruising. Neurologic: No aphasia. No facial droop. Reported change in mentation- improving. No head injury. No headache. No paralysis. No paresthesia. Psychiatric: No depression. No anxiety. No mood swings. Endocrine: No abnormal blood sugars. No weight change. PHYSICAL EXAMINATION Gen: This is a 63-year-old female. She is in the ICU on BiPAP. HEENT: Head is atraumatic, normocephalic. Pupils equal, round. Sclerae is anicteric. NECK: Supple. No JVD. No lymphadenopathy. No thyromegaly. LUNGS: Scattered rhonchi. No wheezes. Mild intercostal retractions. HEART: Regular rate and rhythm. 3/6 systolic murmur. ABDOMEN: Soft. Bowel sounds are present. No masses. No tenderness. Moses catheter in place. EXTREMITIES: No pedal edema. No calf tenderness. NEUROLOGICAL: Patient is awake, alert and oriented to person and place. ASSESSMENT AND PLAN 1. Acute hypoxic respiratory failure secondary to COVID-19 Pneumonia and COPD exacerbation. Consult with pulmonary medicine appreciated. Continue oxygen therapy currently on AirVO. 2. COVID-19 pneumonia. Continue vitamin C, vitamin D, zinc, Solu-Medrol 60 mg IV every 6 hours, Lovenox. 3. COPD exacerbation. Continue Solu-Medrol 60 mg IV every 6 hours, pulmonary consult appreciated. 4. Acute hemorrhagic stroke with acute left subdural hemorrhage with benign tumor status post left frontal craniotomy. Patient was discharged on August 13 from [facility]/rehab facility. Continue Keppra and steroids. Consult with neurology appreciated. 5. Acute toxic metabolic encephalopathy secondary to Covid 19, hyponatremia. Neurology consult appreciated. Continue Keppra for prophylaxis seizure activity. Hold Lyrica. [place] resumed for shoulder pain. 6. Central diabetes insipidus ruled out. 7. History of pulmonary embolism and DVT. Continue Lovenox 80 mg subcu every 12 hours. Hold Coumadin. 8. History of coronary artery disease. Continue Lopressor 9. Hypertension. Continue Lopressor 5 mg IV push every 6 hours as needed, hydralazine 10 mg IV push every 6 hours as needed 10. Hypothyroidism. Patient will be resumed on levothyroxine 25 g IV daily. 11. Hyperlipidemia. Hold pravastatin. 12. Recurrent depression. Continue venlafaxine 150 mg oral daily. 13. GI prophylaxis. Pepcid 20 mg IV every 12 hours. 14. DVT prophylaxis. Lovenox subcu. 15. UTI. Patient started on Rocephin. 16. Chronic right shoulder pain. [place] and lidocaine cream. 17. Severe protein calorie malnutrition. Patient is on TPN and oral intake as well. DISCHARGE PLAN To be determined. Impression and plan of care have been directed as dictated by the signing physician. Karyn Tamayo nurse practitioner acting as scribe for signing physician. Objective - Vital Signs Vital signs: Vital Signs Temp 98.0 F 08/22/20 04:00 Pulse 140 H 08/22/20 07:00 Resp 35 H 08/22/20 07:00 BP 147/83 08/22/20 07:00 Pulse Ox 96 08/22/20 07:00 Intake & Output 08/21/20 08/22/20 08/22/20 18:59 06:59 18:59 Intake Total 1076.6 1339.25 193.6 Output Total 850 745 65 Balance 226.6 594.25 128.6 Intake: IV 360 1182.7 101.6 Amiodarone 360 mg In 99.9 Dextrose 5% in Water 200 ml @ 1 MG/MIN 33.333 mls/ hr IV .Q6H ONE Rx#: [id number] Amiodarone 450 mg In 132.8 16.6 Dextrose 5% in Water 250 ml @ 0.5 MG/MIN 16.667 mls/hr IV .Q15H [facility] Rx#: [id number] Dextrose 5%-0.45% NaCl 1, 260 200 20 000 ml @ 20 mls/hr IV . Q24H [facility] Rx#:[id number] Mvi, Adult No.4 with Vit 650 65 K 10 ml Trace (Conc-1Ml/ Dose) 1 ml In Amino Acid 5%-D20w+Lytes*E* 1,000 ml @ 65 mls/hr IV .[id number] [facility] Rx#:[id number] Potassium Chloride 10 meq 100 In Water For Injection 1 100ml.bag @ 100 mls/hr IVPB Q1H [facility] Rx#: [id number] levETIRAcetam IV 500 mg 100 In Sodium Chloride 0.9% 100 ml @ 400 mls/hr IVPB Q12HR [facility] Rx#:[id number] Intake, IV Titration 566.6 156.55 92 Amount Amiodarone 360 mg In 100 Dextrose 5% in Water 200 ml @ 1 MG/MIN 33.333 mls/ hr IV .Q6H ONE Rx#: [id number] Amiodarone 450 mg In 66.6 33.3 Dextrose 5% in Water 250 ml @ 0.5 MG/MIN 16.667 mls/hr IV .Q15H [facility] Rx#: [id number] Diltiazem 125 mg In 123.25 92 Sodium Chloride 0.9% 100 ml @ Per Protocol IV .Q0M [facility] Rx#:[id number] Potassium Chloride 10 meq 100 In Water For Injection 1 100ml.bag @ 100 mls/hr IVPB Q1H [facility] Rx#: [id number] Potassium Chloride 20 meq 100 In Water For Injection 1 100ml.bag @ 50 mls/hr IVPB ONCE STA Rx#: [id number] cefTRIAXone 1 gm In 100 Sodium Chloride 0.9% 50 ml @ 100 mls/hr IVPB Q24HR [facility] Rx#:[id number] levETIRAcetam IV 500 mg 100 In Sodium Chloride 0.9% 100 ml @ 400 mls/hr IVPB Q12HR [facility] Rx#:[id number] Oral 150 Output: Urine 850 745 65 Other: Voiding Method Indwelling Catheter Indwelling Catheter - Labs CBC & Chem 7: 08/22/20 04:30 08/22/20 04:30 Labs: Abnormal Lab Results - Last 24 Hours (Table) 08/21/20 08/21/20 08/21/20 Range/Units 04:00 11:48 17:43 RBC (3.80-5.40) m/uL Hgb (11.4-16.0) gm/dL Hct (34.0-46.0) % Lymphocytes # (Manual) (1.0-4.8) k/uL Metamyelocytes # (Man) (0) k/uL BUN (7-17) mg/dL Glucose (74-99) mg/dL POC Glucose (mg/dL) 194 H 156 H (75-99) mg/dL Magnesium (1.6-2.3) mg/dL Ferritin 2279.5 H (10.0-291.0) ng/mL AST (14-36) U/L ALT (4-34) U/L Alkaline Phosphatase (38-126) U/L Lactate Dehydrogenase (313-618) U/L Creatine Kinase (30-135) U/L Total Protein (6.3-8.2) g/dL Albumin (3.5-5.0) g/dL 08/21/20 08/22/20 08/22/20 Range/Units 23:03 04:30 04:30 RBC 2.79 L (3.80-5.40) m/uL Hgb 9.4 L (11.4-16.0) gm/dL Hct 27.8 L (34.0-46.0) % Lymphocytes # (Manual) 0.80 L (1.0-4.8) k/uL Metamyelocytes # (Man) 0.08 H (0) k/uL BUN 40 H (7-17) mg/dL Glucose 228 H (74-99) mg/dL POC Glucose (mg/dL) 300 H (75-99) mg/dL Magnesium 2.4 H (1.6-2.3) mg/dL Ferritin (10.0-291.0) ng/mL AST 75 H (14-36) U/L ALT 288 H (4-34) U/L Alkaline Phosphatase 282 H (38-126) U/L Lactate Dehydrogenase 2469 H (313-618) U/L Creatine Kinase <20 L (30-135) U/L Total Protein 5.3 L (6.3-8.2) g/dL Albumin 2.8 L (3.5-5.0) g/dL 08/22/20 Range/Units 06:01 RBC (3.80-5.40) m/uL Hgb (11.4-16.0) gm/dL Hct (34.0-46.0) % Lymphocytes # (Manual) (1.0-4.8) k/uL Metamyelocytes # (Man) (0) k/uL BUN (7-17) mg/dL Glucose (74-99) mg/dL POC Glucose (mg/dL) 250 H (75-99) mg/dL Magnesium (1.6-2.3) mg/dL Ferritin (10.0-291.0) ng/mL AST (14-36) U/L ALT (4-34) U/L Alkaline Phosphatase (38-126) U/L Lactate Dehydrogenase (313-618) U/L Creatine Kinase (30-135) U/L Total Protein (6.3-8.2) g/dL Albumin (3.5-5.0) g/dL Microbiology - Last 24 Hours (Table) 08/16/20 11:43 Blood Culture - Preliminary Blood No Growth after 120 hours 08/16/20 11:55 Blood Culture - Preliminary Blood No Growth after 120 hours
--- NOTE | 2020-08-22 11:00 | ECHOF ---
Referral Reason:NEW ONSET AFIB MEASUREMENTS -------- HEIGHT: 162.6 cm WEIGHT: 101.2 kg BP: 131/85 RVIDd: 2.9 cm (< 3.3) IVSd: 1.4 cm (0.6 - 1.1) LVIDd: 3.9 cm (3.9 - 5.3) LVPWd: 1.3 cm (0.6 - 1.1) IVSs: 1.5 cm LVIDs: 2.6 cm LVPWs: 1.6 cm LA Diam: 3.6 cm (2.7 - 3.8) Ao Diam: 3.4 cm (2.0 - 3.7) AV Cusp: 1.6 cm (1.5 - 2.6) MV EXCURSION: 4.901 mm (> 18.000) MV EF SLOPE: 52 mm/s (70 - 150) EPSS: 0.9 cm RAP: 5.00 mmHg RVSP: 32.72 mmHg FINDINGS -------- Atrial fibrillation. This was a technically difficult study with suboptimal views. The left ventricular size is normal. There is moderate concentric left ventricular hypertrophy. O verall left ventricular systolic function is normal with, an EF between 60 - 65 %. The right ventricle is normal in size. The left atrium is normal in size. The right atrium is normal in size. 5.0mg of Lumason was utilized for enhancement of images There is mild aortic valve sclerosis. Mild mitral annular calcification present. There is trace to mild mitral regurgitation. Mild tricuspid regurgitation present. Right ventricular systolic pressure is normal at < 35 mmHg. The pulmonic valve was not well visualized. The aortic root size is normal. Normal inferior vena cava with normal inspiratory collapse consistent with estimated right atrial pre ssure of 5 mmHg. There is no pericardial effusion. CONCLUSIONS -------- 1. The left ventricular size is normal. 2. There is moderate concentric left ventricular hypertrophy. 3. Overall left ventricular systolic function is normal with, an EF between 60 - 65 %. 4. 5.0mg of Lumason was utilized for enhancement of images 5. There is mild aortic valve sclerosis. 6. Mild mitral annular calcification present. 7. There is trace to mild mitral regurgitation. 8. Mild tricuspid regurgitation present. 9. There is no pericardial effusion. AUT[employer]IVE TIRE WORKER: PRASHANT Parker
[2020-08-22] MEDS: MVI, ADULT NO.4 WITH VIT K 10 ML, TRACE (CONC-1ML/DOSE) 1 ML in AMINO ACID 5%-D20W+LYTE... IV SCH ×6 (12:04→21:40)
[2020-08-22 12:07] LABS: Glucose,Whole Blood 249 mg/dL (75-99)
--- NOTE | 2020-08-22 12:33 | CONS ---
CONSULTATION Mrs. Sutherland is a 64-year-old female who was admitted to the hospital with symptoms of progressive dyspnea and COVID-19 pneumonia. Cardiology consultation was requested because of recent onset atrial fibrillation. The patient was discharged shortly before from [facility] after being admitted for subdural hemorrhage and angioma. She underwent left frontal craniotomy. The patient is awake, alert, confused at this time. She denies any symptoms of chest discomfort. She denies any history of myocardial infarction on knowledge of atrial fibrillation. She denies any history of heart attack, although according to the notes, there is a mention of history of coronary artery disease. She has a history of DVT and pulmonary embolism and has been on Coumadin as an outpatient prior to admission to [facility]. The patient does not feel her palpitation is not aware of the arrhythmia. She had no ventricular ectopic activity and no pauses. She was started on IV Cardizem and IV amiodarone yesterday. Hemodynamically, she continues to be relatively stable. She continues to be quite dyspneic and hypoxic high oxygen at delivery. Her oral intake has been low. MEDICATIONS: Her medications prior to admission included Keppra, Apresoline 100 mg 3 times a day, Norvasc, pravastatin, Synthroid, Colace, Coreg 25 mg twice a day. She is on IV amiodarone at this time. She is on a clonidine patch and Lopressor on a p.r.n. basis. REVIEW OF SYSTEMS: RESPIRATORY SYSTEM: She has significant dyspnea on exertion, requiring high-flow oxygen. She continues to be tachypneic during the examination. GI SYSTEM: She denies any recent GI bleeding. She has nausea. SYSTEM: No dysuria or hematuria. NERVOUS SYSTEM: She had the hemorrhage and the craniotomy as noted. PHYSICAL EXAMINATION: She was in sinus mechanism, her rate was in the 90s. She is now up to the one-teens to 140. Blood pressure 140/80. HEAD: Normocephalic. EYES: Sclerae anicteric. NECK: No bruit. LUNGS: With crackles bilaterally. HEART: Tachycardic, S1, S2 irregular, irregular. No rub. ABDOMEN: Soft, nontender. Positive bowel sounds. No organomegaly. EXTREMITIES: No edema. LAB DATA: Lab data revealed BUN and creatinine 40 and 2820.72, potassium 4.4, hemoglobin of 9.4. Her AST is , ALT of , which has been in the same range for the last few days. Her chest x-ray shows bilateral patchy infiltrate. EKG on presentation shows sinus mechanism with nonspecific ST-T wave changes. IMPRESSION: 1. Acute COVID-19 pneumonitis with severe hypoxemia requiring high-flow oxygen. 2. Atrial fibrillation. 3. Toxic encephalopathy, stabilizing. 4. Prior history of pulmonary embolism and deep vein thrombosis. 5. History of recent craniotomy for bleeding. 6. History of hypertension. 7. Hyperlipidemia in the past. RECOMMENDATION: From the cardiac standpoint, I will switch her to oral amiodarone and switch her to oral beta josh. I will obtain echocardiogram with Doppler. At this time, she is not a candidate for anticoagulation because of her recent neurological surgery and bleeding. Depending on her progress, further recommendation will be made. Thank you for this consult. We will follow with you. MMSHAEL / IJN: [id number] /
--- NOTE | 2020-08-22 13:37 | P.PN ---
Subjective Progress Note Date: 08/22/20 Principal diagnosis: Acute hypoxic respiratory failure secondary to covid 19 pneumonitis. Patient was reevaluated today on 08/18/2020, remains in the ICU, she seems to be now almost BiPAP dependent. Patient was admitted 2 days ago, she has covid 19 pneumonia. Patient was out of the window for remdesivir, received 2 units of convalescent plasma. Chest x-ray shows diffuse interstitial infiltrates. Overall pulmonary status is marginal at best. Patient seems to be quite ill, and I have a strong feeling that the patient may eventually require intubation and mechanical ventilation. O2 saturation is marginal. She is being evaluated by nephrology for hyponatremia felt to be secondary to lack of water intake. Patient is not polyuric, and her urine osmolality does not point to diabetes insipidus. Patient did have previous history of meningioma and left subdural hemorrhage she had previous left frontal craniotomy in July of 2020. Sodium level today went as high as 152, and I have switched the patient to D5W. Looking at the chart, patient had recent craniotomy at [facility], and she was discharged on 08/13/2020. Her other medical problems included history of DVT and pulmonary embolism, history of hypertension, fibromyalgia, and depression as well as hypothyroidism. Reevaluated today on 08/19/2020, patient remains in the ICU, presently on BiPAP, with IPAP of 12 and EPAP 5, FiO2 80% I cut it down to 70%. She is on D5W at 60 mL/h. Clearly her urine tests and her osmolality as well as specific gravity do not point to diabetes insipidus. Sodium is correcting nicely with D5W. Has discontinued DDAVP. Patient is being treated for acute hypoxic respiratory failure secondary to Covid 19 pneumonitis. Patient was outside the window for remdesivir but she did receive 2 units of convalescent plasma. Overall I believe the patient is making slight improvement, hence I was able to titrate her FiO2 down to 70%. Remains on Lovenox 80 mg subcu twice a day and she is also on Solu-Medrol. She is also on the Covid 19 cocktails. Reevaluated today on 08/20/2020, patient remains in the ICU, she is presently on BiPAP with IPAP of 12 and EPAP of 5, O2 saturations 96%, patient could not swallow, hence we attempted placement of the nasogastric tube, did not tolerate that very well, hence I will go ahead and recommend a PICC line and TPN on this patient and set of enteral feeding. Not much change noted since the patient was admitted, she remains marginal at best. IV fluids remains at D545 at 60 mL per hour. And we have consulted dietitian to evaluate for TPN. Chest x-ray continues to show diffuse airspace disease consistent with Covid 19 pneumonitis. CBC is relatively normal basic metabolic profile is normal renal profile is normal. LDH is 2668 and C-reactive protein is 22.7. Patient was reevaluated today on 08/21/2020, patient remains in the ICU, remains on airvo, patient is on 60 L flow and 84% FiO2. And her O2 saturation is 92%. Patient is fatigued, but seems to be in no distress. Comfortable with the present high flow oxygenation. Patient is still not eating much, hence we'll arrange for TPN to be started today. Via PICC line. Chest x-ray continues to show worsening facial infiltrates. More diuretics will be given to the patient today, one dose of Lasix will be given 40 mg times one. Basic metabolic profile is normal LDH remains high at 2566, C-reactive protein is 10.8. Reevaluated today on 08/22/2020, patient remains in the ICU, remains on same FiO2 settings, she is on 60 L flow, 85% FiO2, she is also on Cardizem drip because of atrial fibrillation yesterday, she was also placed on oral beta blockers, and her Cardizem drip is at 15 mg per hour. Patient remains on TPN, however she seems to be doing a bit better today in oral feeding, however she needs of system, shape 50% of her breakfast today. Hence may eventually discontinued TPN. But for now we will continue TPN at least for the next 24-48 hours. I believe the patient is definitely showing some improvement, and I would watch her in the ICU for the next 24 hours, and then we'll decide whether the patient could be transferred to a regular medical floor. Chest x-ray continues to show bilateral interstitial infiltrates. Objective - Vital Signs Vital signs: Vital Signs Temp 98.2 F 08/22/20 11:00 Pulse 98 08/22/20 11:00 Resp 32 H 08/22/20 11:00 BP 127/76 08/22/20 11:00 Pulse Ox 95 08/22/20 11:00 Intake & Output 08/21/20 08/22/20 08/22/20 18:59 06:59 18:59 Intake Total 1076.6 1339.25 1459.6 Output Total 850 745 255 Balance 226.6 594.25 1204.6 Weight 101.3 kg Intake: IV 360 1182.7 356.6 Amiodarone 360 mg In 99.9 Dextrose 5% in Water 200 ml @ 1 MG/MIN 33.333 mls/ hr IV .Q6H [facility] Rx#: [id number] Amiodarone 450 mg In 132.8 16.6 Dextrose 5% in Water 250 ml @ 0.5 MG/MIN 16.667 mls/hr IV .Q15H [facility] Rx#: [id number] Dextrose 5%-0.45% NaCl 1, 260 200 80 000 ml @ 20 mls/hr IV . Q24H [facility] Rx#:[id number] Mvi, Adult No.4 with Vit 650 260 K 10 ml Trace (Conc-1Ml/ Dose) 1 ml In Amino Acid 5%-D20w+Lytes*E* 1,000 ml @ 65 mls/hr IV .[id number] [facility] Rx#:[id number] Potassium Chloride 10 meq 100 In Water For Injection 1 100ml.bag @ 100 mls/hr IVPB Q1H [facility] Rx#: [id number] levETIRAcetam IV 500 mg 100 In Sodium Chloride 0.9% 100 ml @ 400 mls/hr IVPB Q12HR [facility] Rx#:[id number] Intake, IV Titration 566.6 156.55 1103 Amount Amiodarone 360 mg In 100 Dextrose 5% in Water 200 ml @ 1 MG/MIN 33.333 mls/ hr IV .Q6H [facility] Rx#: [id number] Amiodarone 450 mg In 66.6 33.3 Dextrose 5% in Water 250 ml @ 0.5 MG/MIN 16.667 mls/hr IV .Q15H [facility] Rx#: [id number] Diltiazem 125 mg In 123.25 92 Sodium Chloride 0.9% 100 ml @ Per Protocol IV .Q0M [facility] Rx#:[id number] Mvi, Adult No.4 with Vit 1011 K 10 ml Trace (Conc-1Ml/ Dose) 1 ml In Amino Acid 5%-D20w+Lytes*E* 1,000 ml @ 65 mls/hr IV .[id number] [facility] Rx#:[id number] Potassium Chloride 10 meq 100 In Water For Injection 1 100ml.bag @ 100 mls/hr IVPB Q1H [facility] Rx#: [id number] Potassium Chloride 20 meq 100 In Water For Injection 1 100ml.bag @ 50 mls/hr IVPB ONCE [facility] Rx#: [id number] cefTRIAXone 1 gm In 100 Sodium Chloride 0.9% 50 ml @ 100 mls/hr IVPB Q24HR [facility] Rx#:[id number] levETIRAcetam IV 500 mg 100 In Sodium Chloride 0.9% 100 ml @ 400 mls/hr IVPB Q12HR [facility] Rx#:[id number] Oral 150 Output: Urine 850 745 255 Other: Voiding Method Indwelling Catheter Indwelling Catheter Indwelling Catheter - Exam Gen: This is a 63-year-old female. on airvo at 60 L and 85% FiO2 HEENT: Head is atraumatic, normocephalic. Pupils equal, round. Sclerae is anicteric. NECK: Supple. No JVD. No lymphadenopathy. No thyromegaly. LUNGS: Scattered rhonchi. No wheezes. Mild intercostal retractions. HEART: Regular rate and rhythm. 3/6 systolic murmur. ABDOMEN: Soft. Bowel sounds are present. No masses. No tenderness. Moses catheter in place. EXTREMITIES: No pedal edema. No calf tenderness. NEUROLOGICAL: Patient is awake, alert and oriented x3. Cranial nerves 2 through 12 are grossly intact. - Labs CBC & Chem 7: 08/22/20 04:30 08/22/20 04:30 Labs: Abnormal Lab Results - Last 24 Hours (Table) 08/21/20 08/21/20 08/22/20 Range/Units 17:43 23:03 04:30 RBC (3.80-5.40) m/uL Hgb (11.4-16.0) gm/dL Hct (34.0-46.0) % Lymphocytes # (Manual) (1.0-4.8) k/uL Metamyelocytes # (Man) (0) k/uL BUN 40 H (7-17) mg/dL Glucose 228 H (74-99) mg/dL POC Glucose (mg/dL) 156 H 300 H (75-99) mg/dL Magnesium 2.4 H (1.6-2.3) mg/dL Ferritin 2011.6 H (10.0-291.0) ng/mL AST 75 H (14-36) U/L ALT 288 H (4-34) U/L Alkaline Phosphatase 282 H (38-126) U/L Lactate Dehydrogenase 2469 H (313-618) U/L Creatine Kinase <20 L (30-135) U/L Total Protein 5.3 L (6.3-8.2) g/dL Albumin 2.8 L (3.5-5.0) g/dL 08/22/20 08/22/20 08/22/20 Range/Units 04:30 06:01 12:05 RBC 2.79 L (3.80-5.40) m/uL Hgb 9.4 L (11.4-16.0) gm/dL Hct 27.8 L (34.0-46.0) % Lymphocytes # (Manual) 0.80 L (1.0-4.8) k/uL Metamyelocytes # (Man) 0.08 H (0) k/uL BUN (7-17) mg/dL Glucose (74-99) mg/dL POC Glucose (mg/dL) 250 H 249 H (75-99) mg/dL Magnesium (1.6-2.3) mg/dL Ferritin (10.0-291.0) ng/mL AST (14-36) U/L ALT (4-34) U/L Alkaline Phosphatase (38-126) U/L Lactate Dehydrogenase (313-618) U/L Creatine Kinase (30-135) U/L Total Protein (6.3-8.2) g/dL Albumin (3.5-5.0) g/dL Microbiology - Last 24 Hours (Table) 08/16/20 11:43 Blood Culture - Preliminary Blood No Growth after 120 hours 08/16/20 11:55 Blood Culture - Preliminary Blood No Growth after 120 hours Assessment and Plan Assessment: Impression: Acute hypoxic respiratory failure secondary to covid 19 pneumonia. Recent history of hemorrhagic stroke with left subdural hematoma status post left frontal craniotomy Acute toxic metabolic encephalopathy History of pulmonary embolism and DVT. On Lovenox. History of underlying coronary artery disease. Benign essential hypertension. Hypothyroidism. Dyslipidemia. Paroxysmal atrial fibrillation, patient is now on Cardizem, and beta blockers. Recommendation: Continue high flow oxygen.. Titrate FiO2 accordingly. 2 new TPN for now, may switch to oral feeding and the patient improves on her oral feedings. Continue the Covid 19 cocktail. Continue Solu-Medrol. Gentle diuresis. As needed. Continue GI and DVT prophylaxis. Continue Lovenox. Overall prognosis remains poor and guarded. We'll continue to monitor in the ICU for the next 24 hours Time with Patient: Less than 30
--- NOTE | 2020-08-22 15:40 | CDI ---
Documentation Clarification Form Date: 08/29/2020 03:05:40 PM From: Inez Cueva RN CCDS Admit Date: 08/16/2020 11:47:00 AM Patient Name: Michelle Sutherland Visit Number: [id number] Discharge Date: ATTENTION: The Clinical Documentation Specialists (CDI) and [facility] Coding Staff appreciate your assistance in clarifying documentation. Please respond to the clarification below the line at the bottom and electronically sign. The CDI & [facility] Coding staff will review the response and follow-up if needed. Please note: Queries are made part of the Legal Health Record. If you have any questions, please contact the author of this message via ITS. Dr. Valentín Ariza UTI is documented in the Internal medicine progress notes 08/21 and 08/22. History/Risk Factors: 64-year-old female presents to the ED Via EMS from home after being found unresponsive with oxygen in the 40s placed on BiPAP. Medical History: Hemorrhagic stroke with left subdural hemorrhage with benign tumor s/p left frontal craniotomy. HTN, CAD and Pulmonary embolism. Clinical Indicators: Vital Signs 08/18: B/P 115/81; HR 65; Temp 97.8 F Oral; RR 16; SpO2 95% BiPAP WBC 08/18: 6.4 Urinalysis 08/18: Appearance Turbid; Blood small; Nitrate positive; Leukocyte esterase Large; Wbc 125; Wbc clumps few; Bacteria many. Urine Culture 08/20: Escherichia coli Nursing assessment 08/16 14:00: Voiding Pattern - Incontinent Nursing assessment 08/16 16:00: Voiding Pattern Indwelling Catheter Treatment: Antibiotics: 08/21 Rocephin Ivpb Q24HR Please document the condition that these clinical indicators signify cause if known: xx UTI due to herrmann catheter UTI not due to herrmann catheter Other, please specify Unable to determine (Last Revision: May 2017) MTDD
[2020-08-22] MEDS: FAT EMULSION 20% 250 ML in EMPTY BAG 1 BAG IV SCH (16:24)
[2020-08-22 17:32] LABS: Glucose,Whole Blood 179 mg/dL (75-99)
[2020-08-22] MEDS: DEXTROSE 5%-0.45% NACL 1,000 ML IV SCH (17:45)
--- NOTE | 2020-08-22 19:35 | P.PN ---
Subjective Progress Note Date: 08/22/20 She was seen at the bedside and she is doing about the same as the couple days. There is no worsening of her weakness, numbness or visual disturbance. The patient nurse she gets agitated at night and that she was started on Seroquel 25 mg daily at bedtime. Patient sugar has been fluctuating between 150s to 300. Patient's liver function test AST On initial presentation was 74 than a got of 151 and the last read it is 75. ALT on presentation is 79 and on the last read is today it's to 88. Objective - Vital Signs Vital signs: Vital Signs Temp 98.0 F 08/22/20 04:00 Pulse 120 H 08/22/20 10:00 Resp 31 H 08/22/20 10:00 BP 126/79 08/22/20 10:00 Pulse Ox 95 08/22/20 10:00 Intake & Output 08/21/20 08/22/20 08/22/20 18:59 06:59 18:59 Intake Total 1076.6 1339.25 448.6 Output Total 850 745 255 Balance 226.6 594.25 193.6 Intake: IV 360 1182.7 356.6 Amiodarone 360 mg In 99.9 Dextrose 5% in Water 200 ml @ 1 MG/MIN 33.333 mls/ hr IV .Q6H [facility] Rx#: [id number] Amiodarone 450 mg In 132.8 16.6 Dextrose 5% in Water 250 ml @ 0.5 MG/MIN 16.667 mls/hr IV .Q15H [facility] Rx#: [id number] Dextrose 5%-0.45% NaCl 1, 260 200 80 000 ml @ 20 mls/hr IV . Q24H [facility] Rx#:[id number] Mvi, Adult No.4 with Vit 650 260 K 10 ml Trace (Conc-1Ml/ Dose) 1 ml In Amino Acid 5%-D20w+Lytes*E* 1,000 ml @ 65 mls/hr IV .[id number] [facility] Rx#:[id number] Potassium Chloride 10 meq 100 In Water For Injection 1 100ml.bag @ 100 mls/hr IVPB Q1H [facility] Rx#: [id number] levETIRAcetam IV 500 mg 100 In Sodium Chloride 0.9% 100 ml @ 400 mls/hr IVPB Q12HR [facility] Rx#:[id number] Intake, IV Titration 566.6 156.55 92 Amount Amiodarone 360 mg In 100 Dextrose 5% in Water 200 ml @ 1 MG/MIN 33.333 mls/ hr IV .Q6H [facility] Rx#: [id number] Amiodarone 450 mg In 66.6 33.3 Dextrose 5% in Water 250 ml @ 0.5 MG/MIN 16.667 mls/hr IV .Q15H [facility] Rx#: [id number] Diltiazem 125 mg In 123.25 92 Sodium Chloride 0.9% 100 ml @ Per Protocol IV .Q0M [facility] Rx#:[id number] Potassium Chloride 10 meq 100 In Water For Injection 1 100ml.bag @ 100 mls/hr IVPB Q1H [facility] Rx#: [id number] Potassium Chloride 20 meq 100 In Water For Injection 1 100ml.bag @ 50 mls/hr IVPB ONCE [facility] Rx#: [id number] cefTRIAXone 1 gm In 100 Sodium Chloride 0.9% 50 ml @ 100 mls/hr IVPB Q24HR [facility] Rx#:[id number] levETIRAcetam IV 500 mg 100 In Sodium Chloride 0.9% 100 ml @ 400 mls/hr IVPB Q12HR [facility] Rx#:[id number] Oral 150 Output: Urine 850 745 255 Other: Voiding Method Indwelling Catheter Indwelling Catheter Indwelling Catheter - Exam GENERAL: The patient is lying in bed and is not in acute distress. NEUROLOGICAL: Limited since on BIPAP machine. Higher mental function: The patient is awake, alert, oriented to self and place. Regarding to time she correctly answered it to options. Patient is following commands. No aphasia and no neglect. Cranial nerves: The pupils are round, equal and reactive to light and accommodation. Visual mccauley are full to confrontation throughout. Extraocular movement is intact no nystagmus is noted. Facial sensation is normal to touch throughout. The facial strength could not fully assess since had mask for respiratory treatment but no focal deficit seen with mask on. Hearing is normal bilaterally to hand rub. Shoulder shrug is normal bilaterally. Motor: Gait is deferred because of patient's condition. The strength is right upper extremity of right elbow flexion is 4+ while right hand tip cutter is 5-. Otherwise strength is 5/5 throughout. Normal tone and bulk. Sensation: Sensation is normal to touch throughout. Reflexes (right/left): 3+ right patellar otherwise 2+ throughout. Plantars are downgoing bilaterally. - Labs CBC & Chem 7: 08/22/20 04:30 08/22/20 04:30 Labs: Abnormal Lab Results - Last 24 Hours (Table) 08/21/20 08/21/20 08/21/20 Range/Units 04:00 11:48 17:43 RBC (3.80-5.40) m/uL Hgb (11.4-16.0) gm/dL Hct (34.0-46.0) % Lymphocytes # (Manual) (1.0-4.8) k/uL Metamyelocytes # (Man) (0) k/uL BUN (7-17) mg/dL Glucose (74-99) mg/dL POC Glucose (mg/dL) 194 H 156 H (75-99) mg/dL Magnesium (1.6-2.3) mg/dL Ferritin 2279.5 H (10.0-291.0) ng/mL AST (14-36) U/L ALT (4-34) U/L Alkaline Phosphatase (38-126) U/L Lactate Dehydrogenase (313-618) U/L Creatine Kinase (30-135) U/L Total Protein (6.3-8.2) g/dL Albumin (3.5-5.0) g/dL 08/21/20 08/22/20 08/22/20 Range/Units 23:03 04:30 04:30 RBC 2.79 L (3.80-5.40) m/uL Hgb 9.4 L (11.4-16.0) gm/dL Hct 27.8 L (34.0-46.0) % Lymphocytes # (Manual) 0.80 L (1.0-4.8) k/uL Metamyelocytes # (Man) 0.08 H (0) k/uL BUN 40 H (7-17) mg/dL Glucose 228 H (74-99) mg/dL POC Glucose (mg/dL) 300 H (75-99) mg/dL Magnesium 2.4 H (1.6-2.3) mg/dL Ferritin 2011.6 H (10.0-291.0) ng/mL AST 75 H (14-36) U/L ALT 288 H (4-34) U/L Alkaline Phosphatase 282 H (38-126) U/L Lactate Dehydrogenase 2469 H (313-618) U/L Creatine Kinase <20 L (30-135) U/L Total Protein 5.3 L (6.3-8.2) g/dL Albumin 2.8 L (3.5-5.0) g/dL 08/22/20 Range/Units 06:01 RBC (3.80-5.40) m/uL Hgb (11.4-16.0) gm/dL Hct (34.0-46.0) % Lymphocytes # (Manual) (1.0-4.8) k/uL Metamyelocytes # (Man) (0) k/uL BUN (7-17) mg/dL Glucose (74-99) mg/dL POC Glucose (mg/dL) 250 H (75-99) mg/dL Magnesium (1.6-2.3) mg/dL Ferritin (10.0-291.0) ng/mL AST (14-36) U/L ALT (4-34) U/L Alkaline Phosphatase (38-126) U/L Lactate Dehydrogenase (313-618) U/L Creatine Kinase (30-135) U/L Total Protein (6.3-8.2) g/dL Albumin (3.5-5.0) g/dL Microbiology - Last 24 Hours (Table) 08/16/20 11:43 Blood Culture - Preliminary Blood No Growth after 120 hours 08/16/20 11:55 Blood Culture - Preliminary Blood No Growth after 120 hours Assessment and Plan Assessment: This is a 64-year-old woman with medical history of recent left hemorrhage stroke/frontal subdural hemorrhage with meningioma status post recent craniotomy that presented to the emergency department on 08/16/2020 since the patient was having shortness of breath and the her oxygen saturation per the daughter was in the 30s. She was found to have the Covid 19 positive on this admission. Altered mental status as seems to be toxic metabolic encephalopathy (from multifactorial: elevated sugar, mild hypernatremia, anemia, hypoxia) and underlying pneumonia from covid Delirium due to above Recent left hemorrhage stroke from subdural hemorrhage over the left frontal with meningioma status post craniotomy (at [facility] and discharged on 08/13/2020). Mild hypernatremia due to dehydration---resolved Acute hypoxic respiratory failure secondary due to Covid pneumonia was underlying COPD exacerbation Elevated liver function test--slightly worsening Macrocytic anemia History of DVT History of pulmonary embolism History of coronary artery disease Hypertension Hypothyroidism Hyperlipidemia Fibromyalgia Depression Plan: Continue Keppra 500 mg 1 tablet twice a day as seizure prophylaxis. An EEG is not warranted since the patient is awake alert oriented 3 and that was following commands. If the patient's condition worsens an EEG can be considered. During nighttime the patient gets agitated and likely it's the due to delirium because of her medical condition as well as hospital stay. Regarding the macrocytic anemia: Vitamin B-12 is a 342 which is low normal as a result, I placed the patient on 1000 g daily. RBC Folate: 768 (normal). Ammonia level is less than 9 which is normal. TSH is 0.305 which is low and the free T4 is 0.85 which is considered within normal range. Continue thiamine 100mg daily. He is on Seroquel 25mg qhs. Nephrology is on board. Regarding the patient the elevated liver function defer the management to the primary and ICU team met. Regarding the rest of the medical management will defer to the primary team as well as ICU team. The patient needs to follow-up with her neurologist as well as neurosurgeon as an outpatient within the 1-2 weeks upon discharge. The plan was discussed with the patient's nurse. There is no further workup from a neurology perspective. We will sign off. Please reconsult if needed James Nava MD Neuro-hospitalist. Time with Patient: Less than 30
[2020-08-22] MEDS: QUEtiapine 25 MG TAB PO SCH (20:22)
[2020-08-22] MEDS: MELATONIN 5 MG TABLET PO SCH (20:22)
[2020-08-22 23:59] LABS: Glucose,Whole Blood 231 mg/dL (75-99)
[2020-08-23] MEDS: INSULIN ASPART (NovoLOG) 100 UNIT/ML VIAL SQ SCH ×5 (00:16→22:03)
[2020-08-23] MEDS: methylPREDNISolone SOD SUCCI 125 MG/2 ML VIAL IV SCH ×4 (00:16→17:54)
[2020-08-23] MEDS: INSULIN DETEMIR (LEVEMIR) 100 UNIT/ML SYR SQ SCH ×2 (05:59→22:04)
[2020-08-23 06:00] LABS: Glucose,Whole Blood 291 mg/dL (75-99)
[2020-08-23 06:42] LABS: Basophils % (A) 1 %; Eosinophils % (A) 0 %; HCT 26.1 % (34.0-46.0); HGB 8.2 gm/dL (11.4-16.0); Hypochromasia Slight; Lymphocytes # (A) 0.6 k/uL (1.0-4.8); Lymphocytes % (A) 7 %; MCH 32.3 pg (25.0-35.0); MCHC 31.5 g/dL (31.0-37.0); MCV 102.5 fL (80.0-100.0); Macrocytosis Slight; Mean Platelet Volume 8.2; Monocytes # (A) 0.3 k/uL (0-1.0); Monocytes % (A) 3 %; Neutrophils # (A) 7.8 k/uL (1.3-7.7); Neutrophils % (A) 87 %; Platelet Count 190 k/uL (150-450); RBC 2.55 m/uL (3.80-5.40); RDW 15.9 % (11.5-15.5)
[2020-08-23 06:56] LABS: ALT 211 U/L (4-34); AST 37 U/L (14-36); African American GFR (CKD) >90 (>60 ml/min/1.73 sqM); Albumin 2.7 g/dL (3.5-5.0); Alkaline Phosphatase 258 U/L (38-126); Anion Gap 1 mmol/L; Blood Urea Nitrogen 42 mg/dL (7-17); C Reactive Protein <5.0 mg/L (<10.0); Calcium 8.7 mg/dL (8.4-10.2); Carbon Dioxide 30 mmol/L (22-30); Chloride 106 mmol/L (98-107); Creatine Kinase <20 U/L (30-135); Glucose 258 mg/dL (74-99); Magnesium 2.4 mg/dL (1.6-2.3); Non-African American GFR(CKD) 81 (>60 ml/min/1.73 sqM); Phosphorus 3.3 mg/dL (2.5-4.5); Potassium 4.6 mmol/L (3.5-5.1); Sodium 137 mmol/L (137-145); Total Bilirubin 0.5 mg/dL (0.2-1.3); Total Protein 5.2 g/dL (6.3-8.2)
[2020-08-23 07:06] LABS: LDH 1980 U/L (313-618)
--- NOTE | 2020-08-23 07:11 | XR ---
EXAMINATION TYPE: XR chest 1V DATE OF EXAM: 08/23/2020 COMPARISON: 08/22/2020 HISTORY: Cough TECHNIQUE: Single frontal view of the chest is obtained. FINDINGS: A diffuse bilateral patchy infiltrates. Heart is prominent PICC line is in good position. No pneumothorax or sizable pleural effusion. IMPRESSION: Stable diffuse bilateral infiltrates
[2020-08-23] MEDS: AMIODARONE 200 MG TAB PO SCH ×2 (08:16→22:01)
[2020-08-23] MEDS: ASCORBIC ACID 500 MG TAB PO SCH (08:16)
[2020-08-23] MEDS: CHOLECALCIFEROL 1,000 UNIT TAB PO SCH (08:16)
[2020-08-23] MEDS: CYANOCOBALAMIN 500 MCG TAB PO SCH (08:17)
[2020-08-23] MEDS: ENOXAPARIN 80 MG/0.8 ML SYRINGE SQ SCH ×2 (08:17→22:39)
[2020-08-23] MEDS: levETIRAcetam IV 500 MG in SODIUM CHLORIDE 0.9% 100 ML IVPB SCH (08:17)
[2020-08-23] MEDS: LEVOTHYROXINE IVP 100 MCG/5 ML VIAL IV SCH (08:17)
[2020-08-23] MEDS: FAMOTIDINE 20 MG/2 ML VIAL IV SCH ×2 (08:17→22:02)
[2020-08-23] MEDS: DOCUSATE 100 MG CAP PO SCH (08:17)
[2020-08-23] MEDS: VENLAFAXINE HCL ER 150 MG CAP PO SCH (08:18)
[2020-08-23] MEDS: ZINC SULFATE 220 MG CAP PO SCH (08:18)
[2020-08-23] MEDS: THIAMINE 100 MG TAB PO SCH (08:18)
[2020-08-23] MEDS: METOPROLOL TARTRATE 50 MG TAB PO SCH ×2 (08:18→22:02)
--- NOTE | 2020-08-23 09:40 | PN ---
PROGRESS NOTE Mrs. Sutherland is a 64-year-old female who presented with symptoms of progressive dyspnea and evidence of COVID-19 pneumonia. Yesterday, she had an episode of atrial fibrillation. She is back in sinus mechanism. Today, discussing her case with the nursing staff, she is hemodynamically stable. She had no symptoms of chest discomfort. Her breathing is stable. She continues to be on high-flow oxygen. She is off the IV Cardizem. She had an echocardiogram yesterday that showed a preserved left ventricular size and systolic function with no significant valvular abnormalities. She continues to be at this time on amiodarone 400 mg twice a day, clonidine patch once a day and metoprolol tartrate 50 mg twice a day. PHYSICAL EXAM: Revealed a blood pressure running in the 130s to 140s with a heart rate in the 70s. IMPRESSION: 1. Respiratory failure with COVID-19 pneumonia. 2. Atrial fibrillation, paroxysmal, back in sinus mechanism. 3. History of recent hemorrhagic stroke with left-sided subdural hematoma. 4. History of pulmonary embolism and deep venous thrombosis, the patient is now on Lovenox. 5. History of hypertension. 6. Hyperlipidemia. RECOMMENDATION: From the cardiac standpoint, I will continue present therapy, follow her blood pressure and if stable, the clonidine patch can be stopped. I will continue on the beta josh and continue on present dose of amiodarone for another 72 hours and then the dose of Amiodarone can be decreased. Depending on her progress, further recommendations will be made. If stable, then she can be switched back to her oral Coumadin. MMODL / IJN: [id number] /
--- NOTE | 2020-08-23 11:25 | P.PN ---
Subjective Progress Note Date: 08/23/20 HISTORY OF PRESENT ILLNESS Ms. Sutherland is a 64 years old female patient of Dr. Siu with past medical history of coronary artery disease, hypertension, history of DVT and pul monary embolism in 2002, fibromyalgia, asthma who presented to the hospital with worsening shortness of breath associated with change in mental status for the past 24 hours. Patient was in [facility] for subdural hemorrhage associated with meningioma in the left frontal lobe. Patient underwent left frontal craniotomy and was discharged on 08/13 on seizure precaution medication and pain medication. Patient's daughter is an RN who checked her oxygen at home which was saturating at 38%. Patient was brought to the hospital by EMS as patient was found unresponsive with her oxygen in the 40s and was placed on a BiPAP. Patient is unable to provide any history as she Is confused. Called patient's who stated that patient was doing well post discharge until last night when she became short of breath and confused. Patient did have acute stroke from the subdural hemorrhage causing right arm and right leg weakness associated with a phase ER. Patient was in the hospital for 6 weeks and recovered from both right upper and lower extremity weakness and a phasia. Patient was smoking at home post discharge. She was evaluated by her daughter who is an RN who insisted on calling EMS as she did not appear well.On evaluation in the ER patient was found to have bilateral groundglass opacities concerning for call with pneumonia. Vital suggested temp of 97.9 pulse 81 blood pressure 122/78 respiratory rate of 20. Call with 19 was positive. WBC 5.8 hemoglobin 10.4. ABG was obtained with a pO2 of 55 pCO2 of 44 . Patient's sodium is 146 chloride 117 BUN 48 creatinine 1.01 glucose 110 AST 74 8079 magnesium 2.5 proBNP 1560 LDH 2556 troponin negative 1 CRP 220. INR is jose vated at 2.6. Pulmonary consult was placed. Patient placed on Solu-Medrol 60 every 6, zinc sulfide 220 vitamin C 1000 mg daily. EKG was normal sinus rhythm with no ST or segment depression or elevation. 1/3 patient assessed in ICU currently on BiPAP. Patient is oriented 2. Patient was not able to tolerate being off BiPAP for even a few minutes to take her medications. Patient is currently on 100% FiO2 on BiPAP saturating at 91- 92% vitals otherwise stable temp of 98.8 pulse 75 respiratory rate 27 blood pressure 129/53. Patient has a drop of hemoglobin from 10.4-8 today with MCV 103. INR is 1.8 subtherapeutic, elevated APTT 50 in origin and d-dimer 0.97. PCO2 is 46 pO2 71 bicarb 28 with a pH of 7.37, sodium 146 chloride 1:15, BUN 48 creatinine 0.87 glucose 125. Alkaline phosphatase has increased to 215 from 1:15, AST increased from 7 to 151 ALT increased from 79 to 201. Ultrasound abdomen ordered to evaluate for liver and gallbladder. 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 Patient is unable to take oral medication will switch patient's medication to IV today 08/18: Patient remains in the intensive care unit on BiPAP. She maintains a pulse ox of 91-96% but quickly drops if BiPAP is removed. She's been afebrile, heart rate 73, blood pressure 146/75. Repeat blood work reveals WBC 6.3, hemoglobin 10, platelet count 173. INR is 3.1. Fibrinogen 572, d-dimer 1.09. Sodium 152, potassium 4.4, chloride 117, CO2 31, BUN 48 and creatinine 0.89. TSH 0.305. ProBNP 1290. C-reactive protein 87.9. CK 22, LDH 2721. Blood sugars running in the 120s and 130s. Repeat chest x-ray reveals continued bilateral airspace disease. Patient has been seen by neurology with recommendations to continue Keppra 500 mg twice daily for seizure prophylaxis. Records from [facility] to be obtained. Patient was started on desmopressin 0.05 mg 1 tablet twice a day for central diabetes insipidus. Vitamin B-12 and folate levels ordered. TSH and ammonia level. Thiamine was started. Patient was also seen by nephrology for hypernatremia and started on normal saline at 50 mL per hour for now. 08/19: Patient remains in the intensive care unit oxygen is down to 80% on BiPAP with pulse ox running between 89 and 92. She has been afebrile, heart rate 73, blood pressure 101/59. Pulse ox drops if BiPAP is removed. We will start a soft diet as she is stating she is hungry. Midline was placed yesterday. Repe at blood work reveals WBC 6.5, hemoglobin 9.2, platelet count 161. D-dimer 2.63, fibrinogen 503, INR 4.1. Creatinine 0.81. Blood sugars run between 146 and 225. Repeat chest x-ray reveals slight improvement of diffuse infiltrate can be compatible with atypical pneumonia. Patient received DDAVP yesterday. She is currently on D5W at 60 mL per hour. She remains on Solu-Medrol 60 mg IV every 6 hours. 08/20: Patient remains in intensive care unit. She is on BiPAP and desats quickly if this is removed down to 75. She is confused and has pulled off her BiPAP. She is able to a very little today due to desaturation. Daughter has been updated during the night of the patient's status. She has been afebrile, heart rate 80, respiratory rate 26-44, blood pressure 169/88, pulse ox 92% on 70% FiO2 on BiPAP. Repeat blood work reveals Gaby BC 6.3, hemoglobin 9.6, platelet count 158. Lymphocytes are 0.7. BUN 36 creatinine 0.72. Blood sugars running between 130 348. Ferritin 2476. AST 92, ALT 198, alkaline phosphatase 294. LDH 2668. CK 0.1, C-reactive protein 22.7. Urine culture is showing gram- negative bacilli. Blood culture no growth after 72 hours 2 specimens. Repeat chest x-ray reveals cardiomegaly with bilateral multifocal acute infiltrates consistent with COVID-19. Patient is continued on IV fluids of D5W at 60 mL per hour and change today to half-normal saline. Patient received 1 dose of IV Lasix this morning. Desmopressin was discontinued as central diabetes insipidus was ruled out. 08/21: The patient is more alert today. She is now on high flow AirVo with FiO2 of 85%. Patient was able to tolerate chopped diet as morning. She was started yesterday on TPN. She is complaining of right shoulder pain which is of chronic nature and Blacklick resumed as well as lidocaine cream started. Patient has been afebrile, heart rate 82, blood pressure 156/75. Respiratory rate 24. Pulse ox 93% on FiO2 of 85%. residential monitor is a sinus rhythm. Repeat chest x-ray reveals stable bilateral lung infiltrates. Repeat blood work reveals WBC 7.4, hemoglobin 9.5. Creatinine 0.73. Blood sugars between 148 and 165. Liver function tests remain elevated with total bilirubin 1, AST 78, ALT 233, alkaline phosphatase 286. LDH is 2566. CK less than 20. C-reactive protein 10.8. Urine culture finalized with E. coli. Blood cultures showing no growth. 08/22: Patient remains in the intensive care unit. Oxygen is down to 70% with pulse ox of 95%. Heart rate is 140 and patient went into atrial fibrillation currently transitioned to oral amiodarone and Cardizem drip. TPN was started and patient ate 50% of her breakfast this morning. She has been afebrile. Blood pressure 147/83. Repeat blood work reveals WBC 8, hemoglobin 9.4. Blood sugars running between 228 and 300. Electrolytes normal, creatinine 0.72. Phosphorus 3.1, magnesium 2.4. Ferritin 2011, total bilirubin 0.6, AST 75, ALT 288, alkaline phosphatase 282. LDH 2469. CK less than 20. 08/23: Patient remains in the intensive care unit but has progressed very well over the past 24 hours and is scheduled for transfer out to the [facility] floor. Repeat chest x-ray reveals stable diffuse bilateral infiltrates. Dr. English has recommended continued treatment for blood pressure and his blood pressure is stable, clonidine patch can be discontinued. Patient continued on beta josh and amiodarone for another 72 hours and then amiodarone dose can be decreased. The patient can be switched back to oral Coumadin. She has been afebrile, heart rate 69, blood pressure 133/71, pulse ox 95% on high flow nasal cannula 15 L. WBC 9.0, hemoglobin 8.2. Electrolytes normal, BUN 42 and creatinine 0.77. Blood sugars running between 179 and 291. LDH 1980. Total bilirubin 0.5. AST 37, ALT 211, alkaline phosphatase 258. REVIEW OF SYSTEMS Constitutional: No fever, no chills, no night sweats. No weight change. Reports weakness, reports fatigue, reports daytime sleepiness. EENT: No headache. No blurred vision or double vision, no loss of vision. No loss of Hearing, no ringing in the ears, no dizziness. No nasal drainage or congestion. No epistaxis. No sore throat. Lungs: Reports continued shortness of breath, reports cough, no sputum production. No wheezing. Cardiovascular: No chest pain, no lower extremity edema. No palpitations. No paroxysmal nocturnal dyspnea. No orthopnea. No lightheadedness or dizziness. No syncopal episodes. Abdominal: No abdominal pain. No nausea, vomiting. No diarrhea. No constipation. No bloody or tarry stools. Reports increased appetite. Genitourinary: No dysuria, increased frequency, urgency. No urinary retention. Moses catheter in place. Musculoskeletal: No myalgias. No muscle weakness, no gait dysfunction, no frequent falls. No back pain. No neck pain. Integumentary: No wounds, no lesions. No rash or pruritus. No unusual bruising. Neurologic: No aphasia. No facial droop. Reported change in mentation- improving. No head injury. No headache. No paralysis. No paresthesia. Psychiatric: No depression. No anxiety. No mood swings. Endocrine: No abnormal blood sugars. No weight change. PHYSICAL EXAMINATION Gen: This is a 63-year-old female. She is in the ICU on high flow nasal cannula. HEENT: Head is atraumatic, normocephalic. Physical exam deferred to emergency dispatcher due to Covid 19. ASSESSMENT AND PLAN 1. Acute hypoxic respiratory failure secondary to COVID-19 Pneumonia and COPD exacerbation. Consult with pulmonary medicine appreciated. Continue oxygen therapy. She cleared for transfer to [facility] floor. 2. COVID-19 pneumonia. Continue vitamin C, vitamin D, zinc, Solu-Medrol 60 mg IV every 6 hours, Lovenox. 3. COPD exacerbation. Continue Solu-Medrol 60 mg IV every 6 hours, pulmonary consult appreciated. 4. Acute hemorrhagic stroke with acute left subdural hemorrhage with benign tumor status post left frontal craniotomy. Patient was discharged on August 13 from [facility]/rehab facility. Continue Keppra and steroids. Consult with neurology appreciated. 5. Acute toxic metabolic encephalopathy secondary to Covid 19, hyponatremia. Neurology consult appreciated. Continue Keppra for prophylaxis seizure activity. Hold Lyrica. Blacklick resumed for shoulder pain. IV Keppra will be transitioned to oral. 6. Central diabetes insipidus ruled out. 7. History of pulmonary embolism and DVT. Continue Lovenox 80 mg subcu every 12 hours. Resume Coumadin 5 mg tonight. Monitor INR daily. 8. History of coronary artery disease. Continue Lopressor 9. Hypertension. Continue Lopressor 5 mg IV push every 6 hours as needed, hydralazine 10 mg IV push every 6 hours as needed 10. Hypothyroidism. Patient will be resumed on levothyroxine 25 g IV daily. 11. Hyperlipidemia. Hold pravastatin. 12. Recurrent depression. Continue venlafaxine 150 mg oral daily. Seroquel 25 mg at bedtime. 13. GI prophylaxis. Pepcid 20 mg IV every 12 hours. 14. DVT prophylaxis. Lovenox subcu. 15. UTI. Patient started on Rocephin. 16. Chronic right shoulder pain. Blacklick and lidocaine cream. 17. Severe protein calorie malnutrition. Patient is on TPN and oral intake as well. 18. Hyperglycemia secondary to steroids. Hemoglobin A1c is 5.6. Levemir increased to 12 units twice daily, continue NovoLog scale before meals and at bedtime. DISCHARGE PLAN To be determined. Impression and plan of care have been directed as dictated by the signing physician. Karyn Tamayo nurse practitioner acting as scribe for signing physician. Objective - Vital Signs Vital signs: Vital Signs Temp 98.9 F 08/23/20 08:00 Pulse 69 08/23/20 10:00 Resp 12 08/23/20 10:00 BP 133/71 08/23/20 10:00 Pulse Ox 95 08/23/20 10:00 Intake & Output 08/22/20 08/23/20 08/23/20 18:59 06:59 18:59 Intake Total 2862.6 1917 435 Output Total 625 850 310 Balance 2237.6 1067 125 Weight 101.3 kg Intake: IV 1759.6 1168 435 Amiodarone 450 mg In 16.6 Dextrose 5% in Water 250 ml @ 0.5 MG/MIN 16.667 mls/hr IV .Q15H [facility] Rx#: [id number] Dextrose 5%-0.45% NaCl 1, 230 220 40 000 ml @ 20 mls/hr IV . Q24H [facility] Rx#:[id number] Fat Emulsion 20% 250 ml 42 168 In Empty Bag 1 bag @ 21 mls/hr IV MoWeFr [facility] Rx#: [id number] Mvi, Adult No.4 with Vit 1371 780 195 K 10 ml Trace (Conc-1Ml/ Dose) 1 ml In Amino Acid 5%-D20w+Lytes*E* 1,000 ml @ 65 mls/hr IV .[id number] [facility] Rx#:[id number] cefTRIAXone 1 gm In 100 Sodium Chloride 0.9% 50 ml @ 100 mls/hr IVPB Q24HR [facility] Rx#:[id number] levETIRAcetam IV 500 mg 100 100 In Sodium Chloride 0.9% 100 ml @ 400 mls/hr IVPB Q12HR [facility] Rx#:[id number] Intake, IV Titration 1103 749 Amount Diltiazem 125 mg In 92 125 Sodium Chloride 0.9% 100 ml @ Per Protocol IV .Q0M [facility] Rx#:[id number] Mvi, Adult No.4 with Vit 1011 624 K 10 ml Trace (Conc-1Ml/ Dose) 1 ml In Amino Acid 5%-D20w+Lytes*E* 1,000 ml @ 65 mls/hr IV .[id number] [facility] Rx#:[id number] Output: Urine 625 850 310 Other: Voiding Method Indwelling Catheter Indwelling Catheter Indwelling Catheter - Labs CBC & Chem 7: 08/23/20 06:14 08/23/20 06:14 Labs: Abnormal Lab Results - Last 24 Hours (Table) 08/22/20 08/22/20 08/22/20 Range/Units 12:05 17:11 23:57 RBC (3.80-5.40) m/uL Hgb (11.4-16.0) gm/dL Hct (34.0-46.0) % MCV (80.0-100.0) fL RDW (11.5-15.5) % Neutrophils # (1.3-7.7) k/uL Lymphocytes # (1.0-4.8) k/uL BUN (7-17) mg/dL Glucose (74-99) mg/dL POC Glucose (mg/dL) 249 H 179 H 231 H (75-99) mg/dL Magnesium (1.6-2.3) mg/dL AST (14-36) U/L ALT (4-34) U/L Alkaline Phosphatase (38-126) U/L Lactate Dehydrogenase (313-618) U/L Creatine Kinase (30-135) U/L Total Protein (6.3-8.2) g/dL Albumin (3.5-5.0) g/dL 08/23/20 08/23/2008/23/21 Range/Units 05:48 06:14 06:14 RBC 2.55 L (3.80-5.40) m/uL Hgb 8.2 L (11.4-16.0) gm/dL Hct 26.1 L (34.0-46.0) % MCV 102.5 H (80.0-100.0) fL RDW 15.9 H (11.5-15.5) % Neutrophils # 7.8 H (1.3-7.7) k/uL Lymphocytes # 0.6 L (1.0-4.8) k/uL BUN 42 H (7-17) mg/dL Glucose 258 H (74-99) mg/dL POC Glucose (mg/dL) 291 H (75-99) mg/dL Magnesium 2.4 H (1.6-2.3) mg/dL AST 37 H (14-36) U/L ALT 211 H (4-34) U/L Alkaline Phosphatase 258 H (38-126) U/L Lactate Dehydrogenase 1980 H (313-618) U/L Creatine Kinase <20 L (30-135) U/L Total Protein 5.2 L (6.3-8.2) g/dL Albumin 2.7 L (3.5-5.0) g/dL Microbiology - Last 24 Hours (Table) 08/16/20 11:55 Blood Culture - Final Blood No Growth after 144 hours 08/16/20 11:43 Blood Culture - Final Blood No Growth after 144 hours
[2020-08-23 12:36] LABS: INR 1.2 (<1.2); Prothrombin Time 12.8 sec (9.0-12.0)
[2020-08-23 12:37] LABS: Ferritin 1492.2 ng/mL (10.0-291.0)
[2020-08-23 12:38] LABS: Glucose,Whole Blood 176 mg/dL (75-99)
--- NOTE | 2020-08-23 13:43 | P.PN ---
Subjective Progress Note Date: 08/23/20 Principal diagnosis: Acute hypoxic respiratory failure secondary to covid 19 pneumonitis. Patient was reevaluated today on 08/18/2020, remains in the ICU, she seems to be now almost BiPAP dependent. Patient was admitted 2 days ago, she has covid 19 pneumonia. Patient was out of the window for remdesivir, received 2 units of convalescent plasma. Chest x-ray shows diffuse interstitial infiltrates. Overall pulmonary status is marginal at best. Patient seems to be quite ill, and I have a strong feeling that the patient may eventually require intubation and mechanical ventilation. O2 saturation is marginal. She is being evaluated by nephrology for hyponatremia felt to be secondary to lack of water intake. Patient is not polyuric, and her urine osmolality does not point to diabetes insipidus. Patient did have previous history of meningioma and left subdural hemorrhage she had previous left frontal craniotomy in July of 2020. Sodium level today went as high as 152, and I have switched the patient to D5W. Looking at the chart, patient had recent craniotomy at [facility], and she was discharged on 08/13/2020. Her other medical problems included history of DVT and pulmonary embolism, history of hypertension, fibromyalgia, and depression as well as hypothyroidism. Reevaluated today on 08/19/2020, patient remains in the ICU, presently on BiPAP, with IPAP of 12 and EPAP 5, FiO2 80% I cut it down to 70%. She is on D5W at 60 mL/h. Clearly her urine tests and her osmolality as well as specific gravity do not point to diabetes insipidus. Sodium is correcting nicely with D5W. Has discontinued DDAVP. Patient is being treated for acute hypoxic respiratory failure secondary to Covid 19 pneumonitis. Patient was outside the window for remdesivir but she did receive 2 units of convalescent plasma. Overall I believe the patient is making slight improvement, hence I was able to titrate her FiO2 down to 70%. Remains on Lovenox 80 mg subcu twice a day and she is also on Solu-Medrol. She is also on the Covid 19 cocktails. Reevaluated today on 08/20/2020, patient remains in the ICU, she is presently on BiPAP with IPAP of 12 and EPAP of 5, O2 saturations 96%, patient could not swallow, hence we attempted placement of the nasogastric tube, did not tolerate that very well, hence I will go ahead and recommend a PICC line and TPN on this patient and set of enteral feeding. Not much change noted since the patient was admitted, she remains marginal at best. IV fluids remains at D545 at 60 mL per hour. And we have consulted dietitian to evaluate for TPN. Chest x-ray continues to show diffuse airspace disease consistent with Covid 19 pneumonitis. CBC is relatively normal basic metabolic profile is normal renal profile is normal. LDH is 2668 and C-reactive protein is 22.7. Patient was reevaluated today on 08/21/2020, patient remains in the ICU, remains on airvo, patient is on 60 L flow and 84% FiO2. And her O2 saturation is 92%. Patient is fatigued, but seems to be in no distress. Comfortable with the present high flow oxygenation. Patient is still not eating much, hence we'll arrange for TPN to be started today. Via PICC line. Chest x-ray continues to show worsening facial infiltrates. More diuretics will be given to the patient today, one dose of Lasix will be given 40 mg times one. Basic metabolic profile is normal LDH remains high at 2566, C-reactive protein is 10.8. Reevaluated today on 08/22/2020, patient remains in the ICU, remains on same FiO2 settings, she is on 60 L flow, 85% FiO2, she is also on Cardizem drip because of atrial fibrillation yesterday, she was also placed on oral beta blockers, and her Cardizem drip is at 15 mg per hour. Patient remains on TPN, however she seems to be doing a bit better today in oral feeding, however she needs of system, shape 50% of her breakfast today. Hence may eventually discontinued TPN. But for now we will continue TPN at least for the next 24-48 hours. I believe the patient is definitely showing some improvement, and I would watch her in the ICU for the next 24 hours, and then we'll decide whether the patient could be transferred to a regular medical floor. Chest x-ray continues to show bilateral interstitial infiltrates. Reevaluated today on 08/23/2020, patient is now down to 15 L high flow nasal cannula, O2 saturation is in the low 90s, patient is feeling much better today compared to how she felt over the last few days. Chest x-ray continues to show bilateral interstitial. Patient is eating now, hence TPN was discontinued. Patient was placed on beta blockers 50 mg of Lopressor twice a day, and she is now in sinus rhythm. Significant improvement noted in the last 24 hours, hence I plan to transfer the patient out of the ICU to a regular medical floor with telemetry. LDH remains elevated at 1980, C-reactive protein is less than 5. LDH is down from 2668 a few days ago. Objective - Vital Signs Vital signs: Vital Signs Temp 98.2 F 08/23/20 12:00 Pulse 69 08/23/20 12:00 Resp 20 08/23/20 12:00 BP 128/64 08/23/20 12:00 Pulse Ox 96 08/23/20 12:00 Intake & Output 08/22/20 08/23/20 08/23/20 18:59 06:59 18:59 Intake Total 2862.6 1917 455 Output Total 625 850 510 Balance 2237.6 1067 -55 Weight 101.3 kg Intake: IV 1759.6 1168 455 Amiodarone 450 mg In 16.6 Dextrose 5% in Water 250 ml @ 0.5 MG/MIN 16.667 mls/hr IV .Q15H TABATHA Rx#: [id number] Dextrose 5%-0.45% NaCl 1, 230 220 60 000 ml @ 20 mls/hr IV . Q24H TABATHA Rx#:[id number] Fat Emulsion 20% 250 ml 42 168 In Empty Bag 1 bag @ 21 mls/hr IV MoWeFr TABATHA Rx#: [id number] Mvi, Adult No.4 with Vit 1371 780 195 K 10 ml Trace (Conc-1Ml/ Dose) 1 ml In Amino Acid 5%-D20w+Lytes*E* 1,000 ml @ 65 mls/hr IV .[id number] TABATHA Rx#:[id number] cefTRIAXone 1 gm In 100 Sodium Chloride 0.9% 50 ml @ 100 mls/hr IVPB Q24HR TABATHA Rx#:[id number] levETIRAcetam IV 500 mg 100 100 In Sodium Chloride 0.9% 100 ml @ 400 mls/hr IVPB Q12HR TABATHA Rx#:[id number] Intake, IV Titration 1103 749 Amount Diltiazem 125 mg In 92 125 Sodium Chloride 0.9% 100 ml @ Per Protocol IV .Q0M TABATHA Rx#:[id number] Mvi, Adult No.4 with Vit 1011 624 K 10 ml Trace (Conc-1Ml/ Dose) 1 ml In Amino Acid 5%-D20w+Lytes*E* 1,000 ml @ 65 mls/hr IV .[id number] TABATHA Rx#:[id number] Output: Urine 625 850 510 Other: Voiding Method Indwelling Catheter Indwelling Catheter Indwelling Catheter - Exam Gen: This is a 63-year-old female. on airvo at 60 L and 80% FiO2. O2 saturation is in the mid 90s. HEENT: Head is atraumatic, normocephalic. Pupils equal, round. Sclerae is anicteric. NECK: Supple. No JVD. No lymphadenopathy. No thyromegaly. LUNGS: Scattered rhonchi. No wheezes. Mild intercostal retractions. HEART: Regular rate and rhythm. 3/6 systolic murmur. ABDOMEN: Soft. Bowel sounds are present. No masses. No tenderness. Moses catheter in place. EXTREMITIES: No pedal edema. No calf tenderness. NEUROLOGICAL: Patient is awake, alert and oriented x3. Cranial nerves 2 through 12 are grossly intact. Psychiatric: Normal mood, affect and normal mental status examination. Skin: No rashes - Labs CBC & Chem 7: 08/23/20 06:14 08/23/20 06:14 Labs: Abnormal Lab Results - Last 24 Hours (Table) 08/22/20 08/22/20 08/23/20 Range/Units 17:11 23:57 05:48 RBC (3.80-5.40) m/uL Hgb (11.4-16.0) gm/dL Hct (34.0-46.0) % MCV (80.0-100.0) fL RDW (11.5-15.5) % Neutrophils # (1.3-7.7) k/uL Lymphocytes # (1.0-4.8) k/uL PT (9.0-12.0) sec INR (<1.2) BUN (7-17) mg/dL Glucose (74-99) mg/dL POC Glucose (mg/dL) 179 H 231 H 291 H (75-99) mg/dL Magnesium (1.6-2.3) mg/dL Ferritin (10.0-291.0) ng/mL AST (14-36) U/L ALT (4-34) U/L Alkaline Phosphatase (38-126) U/L Lactate Dehydrogenase (313-618) U/L Creatine Kinase (30-135) U/L Total Protein (6.3-8.2) g/dL Albumin (3.5-5.0) g/dL 08/23/20 08/23/20 08/23/20 Range/Units 06:14 06:14 12:18 RBC 2.55 L (3.80-5.40) m/uL Hgb 8.2 L (11.4-16.0) gm/dL Hct 26.1 L (34.0-46.0) % MCV 102.5 H (80.0-100.0) fL RDW 15.9 H (11.5-15.5) % Neutrophils # 7.8 H (1.3-7.7) k/uL Lymphocytes # 0.6 L (1.0-4.8) k/uL PT (9.0-12.0) sec INR (<1.2) BUN 42 H (7-17) mg/dL Glucose 258 H (74-99) mg/dL POC Glucose (mg/dL) 176 H (75-99) mg/dL Magnesium 2.4 H (1.6-2.3) mg/dL Ferritin 1492.2 H (10.0-291.0) ng/mL AST 37 H (14-36) U/L ALT 211 H (4-34) U/L Alkaline Phosphatase 258 H (38-126) U/L Lactate Dehydrogenase 1980 H (313-618) U/L Creatine Kinase <20 L (30-135) U/L Total Protein 5.2 L (6.3-8.2) g/dL Albumin 2.7 L (3.5-5.0) g/dL 08/23/20 Range/Units 12:20 RBC (3.80-5.40) m/uL Hgb (11.4-16.0) gm/dL Hct (34.0-46.0) % MCV (80.0-100.0) fL RDW (11.5-15.5) % Neutrophils # (1.3-7.7) k/uL Lymphocytes # (1.0-4.8) k/uL PT 12.8 H (9.0-12.0) sec INR 1.2 H (<1.2) BUN (7-17) mg/dL Glucose (74-99) mg/dL POC Glucose (mg/dL) (75-99) mg/dL Magnesium (1.6-2.3) mg/dL Ferritin (10.0-291.0) ng/mL AST (14-36) U/L ALT (4-34) U/L Alkaline Phosphatase (38-126) U/L Lactate Dehydrogenase (313-618) U/L Creatine Kinase (30-135) U/L Total Protein (6.3-8.2) g/dL Albumin (3.5-5.0) g/dL Microbiology - Last 24 Hours (Table) 08/16/20 11:55 Blood Culture - Final Blood No Growth after 144 hours 08/16/20 11:43 Blood Culture - Final Blood No Growth after 144 hours Assessment and Plan Assessment: Impression: Acute hypoxic respiratory failure secondary to covid 19 pneumonia. Recent history of hemorrhagic stroke with left subdural hematoma status post left frontal craniotomy Acute toxic metabolic encephalopathy History of pulmonary embolism and DVT. On Lovenox. History of underlying coronary artery disease. Benign essential hypertension. Hypothyroidism. Dyslipidemia. Paroxysmal atrial fibrillation, patient is now on Cardizem, and beta blockers. Presently in sinus rhythm. Recommendation: Continue high flow oxygen.. Titrate as recommended. Stop TPN and continue enteral feeding. Patient is feeding well on her own. Continue the Covid 19 cocktail. Continue Solu-Medrol. Gentle diuresis. As needed. Continue GI and DVT prophylaxis. Continue Lovenox. Transfer patient to a monitor bed today, we'll continue to follow. Time with Patient: Less than 30
[2020-08-23 17:22] LABS: Glucose,Whole Blood 134 mg/dL (75-99)
[2020-08-23] MEDS ORDERED: WARFARIN 5 MG TAB PO ONE (18:00)
[2020-08-23] MEDS: levETIRAcetam 500 MG TAB PO SCH ×2 (20:47→22:01)
[2020-08-23] MEDS: amLODIPine 5 MG TAB PO SCH (20:47)
[2020-08-23] MEDS: hydrALAZINE HCL 50 MG TAB PO SCH (20:47)
[2020-08-23] MEDS: FAMOTIDINE 20 MG TAB PO SCH (20:47)
[2020-08-23] MEDS: DESMOPRESSIN ACETATE 4 MCG/ML VIAL (MDV) IV SCH (20:48)
[2020-08-23 21:04] LABS: Glucose,Whole Blood 129 mg/dL (75-99)
[2020-08-23] MEDS: MELATONIN 5 MG TABLET PO SCH (22:02)
[2020-08-23] MEDS: QUEtiapine 25 MG TAB PO SCH (22:04)
[2020-08-24] MEDS: methylPREDNISolone SOD SUCCI 125 MG/2 ML VIAL IV SCH ×5 (00:06→23:31)
[2020-08-24 05:05] LABS: Glucose,Whole Blood 143 mg/dL (75-99)
[2020-08-24] MEDS: LEVOTHYROXINE 75 MCG TAB PO SCH (05:42)
[2020-08-24 06:41] LABS: D-Dimer 1.21 mg/L FEU (<0.60); INR 1.2 (<1.2); Prothrombin Time 12.4 sec (9.0-12.0)
[2020-08-24 07:42] LABS: Glucose,Whole Blood 144 mg/dL (75-99)
[2020-08-24] MEDS: levETIRAcetam 500 MG TAB PO SCH ×2 (08:14→21:22)
[2020-08-24] MEDS: CHOLECALCIFEROL 1,000 UNIT TAB PO SCH (08:15)
[2020-08-24] MEDS: ENOXAPARIN 80 MG/0.8 ML SYRINGE SQ SCH ×2 (08:15→21:22)
[2020-08-24] MEDS: INSULIN DETEMIR (LEVEMIR) 100 UNIT/ML SYR SQ SCH ×2 (08:15→21:24)
[2020-08-24] MEDS: THIAMINE 100 MG TAB PO SCH (08:15)
[2020-08-24] MEDS: DOCUSATE 100 MG CAP PO SCH (08:15)
[2020-08-24] MEDS: VENLAFAXINE HCL ER 150 MG CAP PO SCH (08:15)
[2020-08-24] MEDS: FAMOTIDINE 20 MG/2 ML VIAL IV SCH ×2 (08:15→21:22)
[2020-08-24] MEDS: AMIODARONE 200 MG TAB PO SCH ×2 (08:15→21:23)
[2020-08-24] MEDS: METOPROLOL TARTRATE 50 MG TAB PO SCH ×2 (08:15→21:24)
[2020-08-24] MEDS: CYANOCOBALAMIN 500 MCG TAB PO SCH (08:15)
[2020-08-24] MEDS: ZINC SULFATE 220 MG CAP PO SCH (08:15)
[2020-08-24] MEDS: ASCORBIC ACID 500 MG TAB PO SCH (08:15)
[2020-08-24] MEDS: INSULIN ASPART (NovoLOG) 100 UNIT/ML VIAL SQ SCH ×4 (08:18→21:23)
[2020-08-24 10:42] LABS: Albumin 3.4 g/dL (3.80-4.90); Albumin/Globulin Ratio 1.89 (1.60-3.17); Anion Gap 5.8 mmol/L (4.00-12.00); Calcium 8.6 mg/dL (8.7-10.3); Carbon Dioxide 28.2 mmol/L (21.6-31.8); Globulin 1.8 g/dL (1.6-3.3); Magnesium 2.5 mg/dL (1.5-2.4); Non-African American GFR(CKD) 76.8 (60.0-200.0); Phosphorus 4.4 mg/dL (2.4-5.1); Potassium 5.1 mmol/L (3.5-5.5); Total Bilirubin 0.4 mg/dL (0.3-1.2); Total Protein 5.2 g/dL (6.2-8.2)
--- NOTE | 2020-08-24 11:15 | P.PN ---
Subjective Progress Note Date: 08/24/20 HISTORY OF PRESENT ILLNESS Ms. Sutherland is a 64 years old female patient of Dr. Siu with past medical history of coronary artery disease, hypertension, history of DVT and pul monary embolism in 2002, fibromyalgia, asthma who presented to the hospital with worsening shortness of breath associated with change in mental status for the past 24 hours. Patient was in [facility] for subdural hemorrhage associated with meningioma in the left frontal lobe. Patient underwent left frontal craniotomy and was discharged on 08/13 on seizure precaution medication and pain medication. Patient's daughter is an RN who checked her oxygen at home which was saturating at 38%. Patient was brought to the hospital by EMS as patient was found unresponsive with her oxygen in the 40s and was placed on a BiPAP. Patient is unable to provide any history as she Is confused. Called patient's who stated that patient was doing well post discharge until last night when she became short of breath and confused. Patient did have acute stroke from the subdural hemorrhage causing right arm and right leg weakness associated with a phase ER. Patient was in the hospital for 6 weeks and recovered from both right upper and lower extremity weakness and a phasia. Patient was smoking at home post discharge. She was evaluated by her daughter who is an RN who insisted on calling EMS as she did not appear well.On evaluation in the ER patient was found to have bilateral groundglass opacities concerning for call with pneumonia. Vital suggested temp of 97.9 pulse 81 blood pressure 122/78 respiratory rate of 20. Call with 19 was positive. WBC 5.8 hemoglobin 10.4. ABG was obtained with a pO2 of 55 pCO2 of 44 . Patient's sodium is 146 chloride 117 BUN 48 creatinine 1.01 glucose 110 AST 74 8079 magnesium 2.5 proBNP 1560 LDH 2556 troponin negative 1 CRP 220. INR is jose vated at 2.6. Pulmonary consult was placed. Patient placed on Solu-Medrol 60 every 6, zinc sulfide 220 vitamin C 1000 mg daily. EKG was normal sinus rhythm with no ST or segment depression or elevation. 1/3 patient assessed in ICU currently on BiPAP. Patient is oriented 2. Patient was not able to tolerate being off BiPAP for even a few minutes to take her medications. Patient is currently on 100% FiO2 on BiPAP saturating at 91- 92% vitals otherwise stable temp of 98.8 pulse 75 respiratory rate 27 blood pressure 129/53. Patient has a drop of hemoglobin from 10.4-8 today with MCV 103. INR is 1.8 subtherapeutic, elevated APTT 50 in origin and d-dimer 0.97. PCO2 is 46 pO2 71 bicarb 28 with a pH of 7.37, sodium 146 chloride 1:15, BUN 48 creatinine 0.87 glucose 125. Alkaline phosphatase has increased to 215 from 1:15, AST increased from 7 to 151 ALT increased from 79 to 201. Ultrasound abdomen ordered to evaluate for liver and gallbladder. 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 Patient is unable to take oral medication will switch patient's medication to IV today 08/18: Patient remains in the intensive care unit on BiPAP. She maintains a pulse ox of 91-96% but quickly drops if BiPAP is removed. She's been afebrile, heart rate 73, blood pressure 146/75. Repeat blood work reveals WBC 6.3, hemoglobin 10, platelet count 173. INR is 3.1. Fibrinogen 572, d-dimer 1.09. Sodium 152, potassium 4.4, chloride 117, CO2 31, BUN 48 and creatinine 0.89. TSH 0.305. ProBNP 1290. C-reactive protein 87.9. CK 22, LDH 2721. Blood sugars running in the 120s and 130s. Repeat chest x-ray reveals continued bilateral airspace disease. Patient has been seen by neurology with recommendations to continue Keppra 500 mg twice daily for seizure prophylaxis. Records from [facility] to be obtained. Patient was started on desmopressin 0.05 mg 1 tablet twice a day for central diabetes insipidus. Vitamin B-12 and folate levels ordered. TSH and ammonia level. Thiamine was started. Patient was also seen by nephrology for hypernatremia and started on normal saline at 50 mL per hour for now. 08/19: Patient remains in the intensive care unit oxygen is down to 80% on BiPAP with pulse ox running between 89 and 92. She has been afebrile, heart rate 73, blood pressure 101/59. Pulse ox drops if BiPAP is removed. We will start a soft diet as she is stating she is hungry. Midline was placed yesterday. Repe at blood work reveals WBC 6.5, hemoglobin 9.2, platelet count 161. D-dimer 2.63, fibrinogen 503, INR 4.1. Creatinine 0.81. Blood sugars run between 146 and 225. Repeat chest x-ray reveals slight improvement of diffuse infiltrate can be compatible with atypical pneumonia. Patient received DDAVP yesterday. She is currently on D5W at 60 mL per hour. She remains on Solu-Medrol 60 mg IV every 6 hours. 08/20: Patient remains in intensive care unit. She is on BiPAP and desats quickly if this is removed down to 75. She is confused and has pulled off her BiPAP. She is able to a very little today due to desaturation. Daughter has been updated during the night of the patient's status. She has been afebrile, heart rate 80, respiratory rate 26-44, blood pressure 169/88, pulse ox 92% on 70% FiO2 on BiPAP. Repeat blood work reveals Gaby BC 6.3, hemoglobin 9.6, platelet count 158. Lymphocytes are 0.7. BUN 36 creatinine 0.72. Blood sugars running between 130 348. Ferritin 2476. AST 92, ALT 198, alkaline phosphatase 294. LDH 2668. CK 0.1, C-reactive protein 22.7. Urine culture is showing gram- negative bacilli. Blood culture no growth after 72 hours 2 specimens. Repeat chest x-ray reveals cardiomegaly with bilateral multifocal acute infiltrates consistent with COVID-19. Patient is continued on IV fluids of D5W at 60 mL per hour and change today to half-normal saline. Patient received 1 dose of IV Lasix this morning. Desmopressin was discontinued as central diabetes insipidus was ruled out. 08/21: The patient is more alert today. She is now on high flow AirVo with FiO2 of 85%. Patient was able to tolerate chopped diet as morning. She was started yesterday on TPN. She is complaining of right shoulder pain which is of chronic nature and Ringgold resumed as well as lidocaine cream started. Patient has been afebrile, heart rate 82, blood pressure 156/75. Respiratory rate 24. Pulse ox 93% on FiO2 of 85%. equipment monitor phototypesetting is a sinus rhythm. Repeat chest x-ray reveals stable bilateral lung infiltrates. Repeat blood work reveals WBC 7.4, hemoglobin 9.5. Creatinine 0.73. Blood sugars between 148 and 165. Liver function tests remain elevated with total bilirubin 1, AST 78, ALT 233, alkaline phosphatase 286. LDH is 2566. CK less than 20. C-reactive protein 10.8. Urine culture finalized with E. coli. Blood cultures showing no growth. 08/22: Patient remains in the intensive care unit. Oxygen is down to 70% with pulse ox of 95%. Heart rate is 140 and patient went into atrial fibrillation currently transitioned to oral amiodarone and Cardizem drip. TPN was started and patient ate 50% of her breakfast this morning. She has been afebrile. Blood pressure 147/83. Repeat blood work reveals WBC 8, hemoglobin 9.4. Blood sugars running between 228 and 300. Electrolytes normal, creatinine 0.72. Phosphorus 3.1, magnesium 2.4. Ferritin 2011, total bilirubin 0.6, AST 75, ALT 288, alkaline phosphatase 282. LDH 2469. CK less than 20. 08/23: Patient remains in the intensive care unit but has progressed very well over the past 24 hours and is scheduled for transfer out to the [facility] floor. Repeat chest x-ray reveals stable diffuse bilateral infiltrates. Dr. English has recommended continued treatment for blood pressure and his blood pressure is stable, clonidine patch can be discontinued. Patient continued on beta josh and amiodarone for another 72 hours and then amiodarone dose can be decreased. The patient can be switched back to oral Coumadin. She has been afebrile, heart rate 69, blood pressure 133/71, pulse ox 95% on high flow nasal cannula 15 L. WBC 9.0, hemoglobin 8.2. Electrolytes normal, BUN 42 and creatinine 0.77. Blood sugars running between 179 and 291. LDH 1980. Total bilirubin 0.5. AST 37, ALT 211, alkaline phosphatase 258. 08/24: Patient continues to have cough. Patient has been afebrile, heart rate 80, blood pressure 138/79, pulse ox 94-97% on 15 L high flow nasal cannula. INR is 1.2. Patient was started on Coumadin last night of 5 mg, pharmacy dosing. Blood sugar 129 244.She is very much looking forward to getting home eventually. She is agreeable to subacute rehab and PT has recommended subacute rehab. We will plan for his risk compliance manager/social services specialist following up tomorrow. REVIEW OF SYSTEMS Constitutional: No fever, no chills, no night sweats. No weight change. Reports weakness, reports fatigue, reports daytime sleepiness. EENT: No headache. No blurred vision or double vision, no loss of vision. No loss of Hearing, no ringing in the ears, no dizziness. No nasal drainage or congestion. No epistaxis. No sore throat. Lungs: Reports continued shortness of breath, reports cough, no sputum production. No wheezing. Cardiovascular: No chest pain, no lower extremity edema. No palpitations. No paroxysmal nocturnal dyspnea. No orthopnea. No lightheadedness or dizziness. No syncopal episodes. Abdominal: No abdominal pain. No nausea, vomiting. No diarrhea. No constipation. No bloody or tarry stools. Reports increased appetite. Genitourinary: No dysuria, increased frequency, urgency. No urinary retention. Moses catheter in place. Musculoskeletal: No myalgias. No muscle weakness, no gait dysfunction, no frequent falls. No back pain. No neck pain. Integumentary: No wounds, no lesions. No rash or pruritus. No unusual bruising. Neurologic: No aphasia. No facial droop. No change in mentation. No head injury. No headache. No paralysis. No paresthesia. Psychiatric: No depression. No anxiety. No mood swings. Endocrine: No abnormal blood sugars. No weight change. PHYSICAL EXAMINATION Gen: This is a 63-year-old female. She is seen today on the [facility] floor.. HEENT: Head is atraumatic, normocephalic. Pupils equal, round. Sclerae is anicteric. NECK: Supple. No JVD. No lymphadenopathy. No thyromegaly. LUNGS: Scattered rhonchi. No wheezes. Mild intercostal retractions. HEART: Regular rate and rhythm. 3/6 systolic murmur. ABDOMEN: Soft. Bowel sounds are present. No masses. No tenderness. Moses catheter in place. EXTREMITIES: No pedal edema. No calf tenderness. NEUROLOGICAL: Patient is awake, alert and oriented to person and place. ASSESSMENT AND PLAN 1. Acute hypoxic respiratory failure secondary to COVID-19 Pneumonia and COPD exacerbation. Consult with pulmonary medicine appreciated. Continue oxygen therapy. 2. COVID-19 pneumonia. Continue vitamin C, vitamin D, zinc, Solu-Medrol 60 mg IV every 6 hours, Lovenox. 3. COPD exacerbation. Continue Solu-Medrol 60 mg IV every 6 hours, pulmonary consult appreciated. 4. Acute hemorrhagic stroke with acute left subdural hemorrhage with benign tumor status post left frontal craniotomy. Patient was discharged on August 13 from [facility]/rehab facility. Continue Keppra and steroids. Consult with neurology appreciated. 5. Acute toxic metabolic encephalopathy secondary to Covid 19, hyponatremia. Neurology consult appreciated. Continue Keppra for prophylaxis seizure a ctivity. Hold Lyrica. Ringgold resumed for shoulder pain. IV Keppra will be transitioned to oral. 6. Central diabetes insipidus ruled out. 7. History of pulmonary embolism and DVT. Continue Lovenox 80 mg subcu every 12 hours. Resume Coumadin 5 mg tonight. Monitor INR daily. 8. History of coronary artery disease. Continue Lopressor 9. Hypertension. Continue Lopressor 5 mg IV push every 6 hours as needed, hydralazine 10 mg IV push every 6 hours as needed 10. Hypothyroidism. Patient will be resumed on levothyroxine 25 g IV daily. 11. Hyperlipidemia. Hold pravastatin. 12. Recurrent depression. Continue venlafaxine 150 mg oral daily. Seroquel 25 mg at bedtime. 13. GI prophylaxis. Pepcid 20 mg IV every 12 hours. 14. DVT prophylaxis. Lovenox subcu. 15. UTI. Patient started on Rocephin. 16. Chronic right shoulder pain. Ringgold and lidocaine cream. 17. Severe protein calorie malnutrition. TPN has been discontinued. Continue oral diet. 18. Hyperglycemia secondary to steroids. Hemoglobin A1c is 5.6. Levemir increased to 12 units twice daily, continue NovoLog scale before meals and at bedtime. DISCHARGE PLAN Subacute rehab at this week. Impression and plan of care have been directed as dictated by the signing physician. Karyn Tamayo nurse practitioner acting as scribe for signing physician. Objective - Vital Signs Vital signs: Vital Signs Temp 98.6 F 08/24/20 04:48 Pulse 80 08/24/20 04:48 Resp 16 08/24/20 04:48 BP 138/79 08/24/20 04:48 Pulse Ox 97 08/24/20 04:48 Intake & Output 08/23/20 08/24/20 08/24/20 18:59 06:59 18:59 Intake Total 455 480 Output Total 510 600 Balance -55 -120 Weight 104 kg Intake: IV 455 Dextrose 5%-0.45% NaCl 1, 60 000 ml @ 20 mls/hr IV . Q24H TABATHA Rx#:[id number] Mvi, Adult No.4 with Vit 195 K 10 ml Trace (Conc-1Ml/ Dose) 1 ml In Amino Acid 5%-D20w+Lytes*E* 1,000 ml @ 65 mls/hr IV .[id number] TABATHA Rx#:[id number] cefTRIAXone 1 gm In 100 Sodium Chloride 0.9% 50 ml @ 100 mls/hr IVPB Q24HR TABATHA Rx#:[id number] levETIRAcetam IV 500 mg 100 In Sodium Chloride 0.9% 100 ml @ 400 mls/hr IVPB Q12HR TABATHA Rx#:[id number] Oral 480 Output: Urine 510 600 Uretheral (Moses) 600 Other: Voiding Method Indwelling Catheter Indwelling Catheter - Labs CBC & Chem 7: 08/23/20 06:14 08/24/20 05:15 Labs: Abnormal Lab Results - Last 24 Hours (Table) 08/23/20 08/23/20 08/23/20 Range/Units 06:14 12:18 12:20 PT 12.8 H (9.0-12.0) sec INR 1.2 H (<1.2) D-Dimer (<0.60) mg/L FEU POC Glucose (mg/dL) 176 H (75-99) mg/dL Ferritin 1492.2 H (10.0-291.0) ng/mL 08/23/20 08/23/20 08/24/20 Range/Units 17:21 21:03 04:58 PT (9.0-12.0) sec INR (<1.2) D-Dimer (<0.60) mg/L FEU POC Glucose (mg/dL) 134 H 129 H 143 H (75-99) mg/dL Ferritin (10.0-291.0) ng/mL 08/24/20 08/24/20 Range/Units 05:15 07:41 PT 12.4 H (9.0-12.0) sec INR 1.2 H (<1.2) D-Dimer 1.21 H (<0.60) mg/L FEU POC Glucose (mg/dL) 144 H (75-99) mg/dL Ferritin (10.0-291.0) ng/mL
[2020-08-24 11:36] LABS: Glucose,Whole Blood 254 mg/dL (75-99)
--- NOTE | 2020-08-24 12:15 | P.PN ---
Subjective Progress Note Date: 08/24/20 Principal diagnosis: Acute hypoxic respiratory failure secondary to CoVID 19 pneumonitis The patient is seen today 08/24/2020 in follow-up on the regular medical floor. She was admitted for acute hypoxic respiratory failure secondary to CoVID 19 pneumonitis. She was outside the window for Remdesivir. She did receive 2 units of convalescent plasma. She was transferred out of the ICU yesterday. She remains awake and alert in no acute distress. Currently still requiring 15 L high flow nasal cannula to maintain O2 saturations in the 90s. Urine culture positive for E. coli. D-dimer 1.1. Sodium 145. Potassium 5.1. Creatinine 0.8. Remains on ceftriaxone. IV Solu-Medrol. Anticoagulated with Lovenox and initiated on warfarin. Objective - Vital Signs Vital signs: Vital Signs Temp 98.5 F 08/24/20 11:00 Pulse 72 08/24/20 11:00 Resp 18 08/24/20 11:00 BP 135/71 08/24/20 11:00 Pulse Ox 96 08/24/20 11:00 Intake & Output 08/23/20 08/24/20 08/24/20 18:59 06:59 18:59 Intake Total 455 480 Output Total 510 600 Balance -55 -120 Weight 104 kg Intake: IV 455 Dextrose 5%-0.45% NaCl 1, 60 000 ml @ 20 mls/hr IV . Q24H TABATHA Rx#:[id number] Mvi, Adult No.4 with Vit 195 K 10 ml Trace (Conc-1Ml/ Dose) 1 ml In Amino Acid 5%-D20w+Lytes*E* 1,000 ml @ 65 mls/hr IV .[id number] TABATHA Rx#:[id number] cefTRIAXone 1 gm In 100 Sodium Chloride 0.9% 50 ml @ 100 mls/hr IVPB Q24HR TABATHA Rx#:[id number] levETIRAcetam IV 500 mg 100 In Sodium Chloride 0.9% 100 ml @ 400 mls/hr IVPB Q12HR TABATHA Rx#:[id number] Oral 480 Output: Urine 510 600 Uretheral (Moses) 600 Other: Voiding Method Indwelling Catheter Indwelling Catheter Indwelling Catheter - Exam Gen: This is a 63-year-old female patient on 15 L high flow nasal cannula. O2 saturation is in the mid 90s. HEENT: Head is atraumatic, normocephalic. Pupils equal, round. Sclerae is anicteric. NECK: Supple. No JVD. No lymphadenopathy. No thyromegaly. LUNGS: Scattered rhonchi. No wheezes. Mild intercostal retractions. HEART: Regular rate and rhythm. 3/6 systolic murmur. ABDOMEN: Soft. Bowel sounds are present. No masses. No tenderness. Moses catheter in place. EXTREMITIES: No pedal edema. No calf tenderness. NEUROLOGICAL: Patient is awake, alert and oriented x3. Cranial nerves 2 through 12 are grossly intact. Psychiatric: Normal mood, affect and normal mental status examination. Skin: No rashes - Labs CBC & Chem 7: 08/23/20 06:14 08/24/20 05:15 Labs: Abnormal Lab Results - Last 24 Hours (Table) 08/23/20 08/23/20 08/23/20 Range/Units 06:14 12:18 12:20 PT 12.8 H (9.0-12.0) sec INR 1.2 H (<1.2) D-Dimer (<0.60) mg/L FEU Chloride (96-109) mmol/L BUN (9.0-27.0) mg/dL BUN/Creatinine Ratio (12.00-20.00) Ratio Glucose (70-110) mg/dL POC Glucose (mg/dL) 176 H (75-99) mg/dL Calcium (8.7-10.3) mg/dL Magnesium (1.5-2.4) mg/dL Ferritin 1492.2 H (10.0-291.0) ng/mL AST (13-35) U/L ALT (8-44) U/L Alkaline Phosphatase (41-126) U/L Total Protein (6.2-8.2) g/dL Albumin (3.80-4.90) g/dL 08/23/20 08/23/20 08/24/20 Range/Units 17:21 21:03 04:58 PT (9.0-12.0) sec INR (<1.2) D-Dimer (<0.60) mg/L FEU Chloride (96-109) mmol/L BUN (9.0-27.0) mg/dL BUN/Creatinine Ratio (12.00-20.00) Ratio Glucose (70-110) mg/dL POC Glucose (mg/dL) 134 H 129 H 143 H (75-99) mg/dL Calcium (8.7-10.3) mg/dL Magnesium (1.5-2.4) mg/dL Ferritin (10.0-291.0) ng/mL AST (13-35) U/L ALT (8-44) U/L Alkaline Phosphatase (41-126) U/L Total Protein (6.2-8.2) g/dL Albumin (3.80-4.90) g/dL 08/24/20 08/24/20 08/24/20 Range/Units 05:15 05:15 07:41 PT 12.4 H (9.0-12.0) sec INR 1.2 H (<1.2) D-Dimer 1.21 H (<0.60) mg/L FEU Chloride 111 H (96-109) mmol/L BUN 48.0 H (9.0-27.0) mg/dL BUN/Creatinine Ratio 60.00 H (12.00-20.00) Ratio Glucose 125 H (70-110) mg/dL POC Glucose (mg/dL) 144 H (75-99) mg/dL Calcium 8.6 L (8.7-10.3) mg/dL Magnesium 2.5 H (1.5-2.4) mg/dL Ferritin (10.0-291.0) ng/mL AST 47 H (13-35) U/L ALT 254 H (8-44) U/L Alkaline Phosphatase 280 H (41-126) U/L Total Protein 5.2 L (6.2-8.2) g/dL Albumin 3.40 L (3.80-4.90) g/dL 08/24/20 Range/Units 11:34 PT (9.0-12.0) sec INR (<1.2) D-Dimer (<0.60) mg/L FEU Chloride (96-109) mmol/L BUN (9.0-27.0) mg/dL BUN/Creatinine Ratio (12.00-20.00) Ratio Glucose (70-110) mg/dL POC Glucose (mg/dL) 254 H (75-99) mg/dL Calcium (8.7-10.3) mg/dL Magnesium (1.5-2.4) mg/dL Ferritin (10.0-291.0) ng/mL AST (13-35) U/L ALT (8-44) U/L Alkaline Phosphatase (41-126) U/L Total Protein (6.2-8.2) g/dL Albumin (3.80-4.90) g/dL Assessment and Plan Assessment: 1 Acute hypoxic respiratory failure secondary to CoVID 19 pneumonia. Outside t he window for Remdesivir. Did receive 2 units of convalescent plasma 2 Recent history of hemorrhagic stroke with left subdural hematoma status post left frontal craniotomy 3 Acute toxic metabolic encephalopathy 4 History of pulmonary embolism and DVT. On Lovenox. 5 History of underlying coronary artery disease. 6 Benign essential hypertension. 7 Hypothyroidism. 8 Dyslipidemia. 9 Paroxysmal atrial fibrillation, patient is now on Cardizem, and beta blockers. Presently in sinus rhythm. Plan: The patient was seen and evaluated by Dr. Benjamin Currently on 15 L high flow nasal cannula Continue the current treatment plan Resumed warfarin Titrate down the FiO2 as tolerated Chest x-ray in the a.m. We'll continue to follow I, the cosigning physician, performed a history & physical examination of the patient. Lungs sounds with bilateral scattered rhonchi. Maintaining good O2 saturations in the 90s on 15 L high flow nasal cannula. I discussed the assessment and plan of care with my nurse practitioner, Janneth Andrew. I attest to the above note as dictated by her.
--- NOTE | 2020-08-24 12:46 | P.PN ---
Subjective Progress Note Date: 08/24/20 HISTORY OF PRESENT ILLNESS: Patient examined this morning at bedside. She denies chest pain or pressure. She denies shortness of breath. She is maintaining sinus mechanism. Heart rate controlled. Blood pressure 138/79. PHYSICAL EXAM: VITAL SIGNS: Reviewed. GENERAL: Well-developed in no acute distress. NECK: Supple. No JVD or thyromegaly LUNGS: Respirations even and unlabored. Lungs essentially clear to auscultation bilaterally. HEART: Regular rate and rhythm. S1 and S2 heard. EXTREMITIES: Normal range of motion. No clubbing or cyanosis. Peripheral pulses intact. No lower extremity edema ASSESSMENT: Covid 19 pneumonia Acute hypoxic respiratory failure Paroxysmal atrial fibrillation History of recent hemorrhagic stroke with left-sided subdural hematoma History of PE and DVT Hypertension Hyperlipidemia PLAN: Discontinue clonidine patch Resume Norvasc 5 mg daily Continue amiodarone. Will decrease dose of amiodarone tomorrow Further recommendations pending patient's course Nurse practitioner note has been reviewed by physician. Signing provider agrees with the documented findings, assessment, and plan of care. Objective - Vital Signs Vital signs: Vital Signs Temp 98.5 F 08/24/20 11:00 Pulse 72 08/24/20 11:00 Resp 18 08/24/20 11:00 BP 135/71 08/24/20 11:00 Pulse Ox 96 08/24/20 11:00 Intake & Output 08/23/20 08/24/20 08/24/20 18:59 06:59 18:59 Intake Total 455 480 Output Total 510 600 Balance -55 -120 Weight 104 kg Intake: IV 455 Dextrose 5%-0.45% NaCl 1, 60 000 ml @ 20 mls/hr IV . Q24H TABATHA Rx#:[id number] Mvi, Adult No.4 with Vit 195 K 10 ml Trace (Conc-1Ml/ Dose) 1 ml In Amino Acid 5%-D20w+Lytes*E* 1,000 ml @ 65 mls/hr IV .[id number] TABATHA Rx#:[id number] cefTRIAXone 1 gm In 100 Sodium Chloride 0.9% 50 ml @ 100 mls/hr IVPB Q24HR TABATHA Rx#:[id number] levETIRAcetam IV 500 mg 100 In Sodium Chloride 0.9% 100 ml @ 400 mls/hr IVPB Q12HR TABATHA Rx#:[id number] Oral 480 Output: Urine 510 600 Uretheral (Moses) 600 Other: Voiding Method Indwelling Catheter Indwelling Catheter Indwelling Catheter - Labs CBC & Chem 7: 08/23/20 06:14 08/24/20 05:15 Labs: Abnormal Lab Results - Last 24 Hours (Table) 08/23/20 08/23/20 08/23/20 Range/Units 06:14 12:18 17:21 PT (9.0-12.0) sec INR (<1.2) D-Dimer (<0.60) mg/L FEU Chloride (96-109) mmol/L BUN (9.0-27.0) mg/dL BUN/Creatinine Ratio (12.00-20.00) Ratio Glucose (70-110) mg/dL POC Glucose (mg/dL) 176 H 134 H (75-99) mg/dL Calcium (8.7-10.3) mg/dL Magnesium (1.5-2.4) mg/dL Ferritin 1492.2 H (10.0-291.0) ng/mL AST (13-35) U/L ALT (8-44) U/L Alkaline Phosphatase (41-126) U/L Total Protein (6.2-8.2) g/dL Albumin (3.80-4.90) g/dL 08/23/20 08/24/20 08/24/20 Range/Units 21:03 04:58 05:15 PT (9.0-12.0) sec INR (<1.2) D-Dimer (<0.60) mg/L FEU Chloride 111 H (96-109) mmol/L BUN 48.0 H (9.0-27.0) mg/dL BUN/Creatinine Ratio 60.00 H (12.00-20.00) Ratio Glucose 125 H (70-110) mg/dL POC Glucose (mg/dL) 129 H 143 H (75-99) mg/dL Calcium 8.6 L (8.7-10.3) mg/dL Magnesium 2.5 H (1.5-2.4) mg/dL Ferritin (10.0-291.0) ng/mL AST 47 H (13-35) U/L ALT 254 H (8-44) U/L Alkaline Phosphatase 280 H (41-126) U/L Total Protein 5.2 L (6.2-8.2) g/dL Albumin 3.40 L (3.80-4.90) g/dL 08/24/20 08/24/20 08/24/20 Range/Units 05:15 07:41 11:34 PT 12.4 H (9.0-12.0) sec INR 1.2 H (<1.2) D-Dimer 1.21 H (<0.60) mg/L FEU Chloride (96-109) mmol/L BUN (9.0-27.0) mg/dL BUN/Creatinine Ratio (12.00-20.00) Ratio Glucose (70-110) mg/dL POC Glucose (mg/dL) 144 H 254 H (75-99) mg/dL Calcium (8.7-10.3) mg/dL Magnesium (1.5-2.4) mg/dL Ferritin (10.0-291.0) ng/mL AST (13-35) U/L ALT (8-44) U/L Alkaline Phosphatase (41-126) U/L Total Protein (6.2-8.2) g/dL Albumin (3.80-4.90) g/dL
[2020-08-24] MEDS: amLODIPine 5 MG TAB PO SCH (13:10)
[2020-08-24 17:52] LABS: Glucose,Whole Blood 200 mg/dL (75-99)
[2020-08-24] MEDS ORDERED: WARFARIN 5 MG TAB PO ONE (18:00)
[2020-08-24 20:44] LABS: Glucose,Whole Blood 188 mg/dL (75-99)
[2020-08-24] MEDS: HYDROcodone/APAP 5-325MG 1 EACH TAB PO PRN (21:22)
[2020-08-24] MEDS: QUEtiapine 25 MG TAB PO SCH (21:22)
[2020-08-24] MEDS: MELATONIN 5 MG TABLET PO SCH (21:35)
[2020-08-25] MEDS: methylPREDNISolone SOD SUCCI 125 MG/2 ML VIAL IV SCH ×2 (05:40→13:01)
[2020-08-25] MEDS: LEVOTHYROXINE 75 MCG TAB PO SCH (05:40)
[2020-08-25 06:17] LABS: Basophils # (A) 0.2 k/uL (0-0.2); Basophils % (A) 2 %; Eosinophils % (A) 1 %; HCT 27.9 % (34.0-46.0); HGB 9.3 gm/dL (11.4-16.0); Lymphocytes # (A) 0.3 k/uL (1.0-4.8); Lymphocytes % (A) 3 %; MCH 33.8 pg (25.0-35.0); MCHC 33.4 g/dL (31.0-37.0); MCV 101.2 fL (80.0-100.0); Macrocytosis Slight; Mean Platelet Volume 8.1; Monocytes # (A) 0.5 k/uL (0-1.0); Monocytes % (A) 6 %; Neutrophils # (A) 7.4 k/uL (1.3-7.7); Neutrophils % (A) 86 %; Platelet Count 226 k/uL (150-450); RBC 2.76 m/uL (3.80-5.40); RDW 15.6 % (11.5-15.5); WBC 8.6 k/uL (3.8-10.6)
[2020-08-25 07:02] LABS: Glucose,Whole Blood 155 mg/dL (75-99)
[2020-08-25] MEDS: INSULIN DETEMIR (LEVEMIR) 100 UNIT/ML SYR SQ SCH ×2 (08:27→22:14)
[2020-08-25] MEDS: INSULIN ASPART (NovoLOG) 100 UNIT/ML VIAL SQ SCH ×4 (08:28→22:14)
[2020-08-25] MEDS: AMIODARONE 200 MG TAB PO SCH ×2 (08:28→21:15)
[2020-08-25] MEDS: THIAMINE 100 MG TAB PO SCH (08:28)
[2020-08-25] MEDS: ASCORBIC ACID 500 MG TAB PO SCH (08:29)
[2020-08-25] MEDS: levETIRAcetam 500 MG TAB PO SCH ×2 (08:29→21:15)
[2020-08-25] MEDS: CHOLECALCIFEROL 1,000 UNIT TAB PO SCH (08:29)
[2020-08-25] MEDS: ZINC SULFATE 220 MG CAP PO SCH (08:29)
[2020-08-25] MEDS: DOCUSATE 100 MG CAP PO SCH (08:29)
[2020-08-25] MEDS: METOPROLOL TARTRATE 50 MG TAB PO SCH ×2 (08:29→21:16)
[2020-08-25] MEDS: FAMOTIDINE 20 MG/2 ML VIAL IV SCH ×2 (08:30→21:15)
[2020-08-25] MEDS: CYANOCOBALAMIN 500 MCG TAB PO SCH (08:30)
[2020-08-25] MEDS: amLODIPine 5 MG TAB PO SCH (08:30)
[2020-08-25] MEDS: ENOXAPARIN 80 MG/0.8 ML SYRINGE SQ SCH ×2 (08:31→21:15)
[2020-08-25 08:56] LABS: INR 1.7 (0.90-1.11); Prothrombin Time 17.7 sec (9.9-11.9)
[2020-08-25] MEDS: VENLAFAXINE HCL ER 150 MG CAP PO SCH (09:20)
[2020-08-25 09:34] LABS: Albumin 3.5 g/dL (3.80-4.90); Albumin/Globulin Ratio 1.84 (1.60-3.17); Anion Gap 6.5 mmol/L (4.00-12.00); Calcium 8.6 mg/dL (8.7-10.3); Carbon Dioxide 27.5 mmol/L (21.6-31.8); Globulin 1.9 g/dL (1.6-3.3); Magnesium 2.6 mg/dL (1.5-2.4); Non-African American GFR(CKD) 58.7 (60.0-200.0); Phosphorus 4.3 mg/dL (2.4-5.1); Potassium 5.4 mmol/L (3.5-5.5); Total Bilirubin 0.3 mg/dL (0.3-1.2); Total Protein 5.4 g/dL (6.2-8.2)
[2020-08-25 11:24] LABS: Glucose,Whole Blood 154 mg/dL (75-99)
--- NOTE | 2020-08-25 11:26 | P.PN ---
Subjective This is a pleasant 64-year-old female past medical history significant for hypertension, dyslipidemia, prior history of DVT and PE on warfarin in the past and hemorrhagic stroke with left-sided subdural hematoma status post left frontal craniotomy 07/2020. 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 She is currently being treated for Covid 19. Information was obtained from the medical record and nursing staff. She continues to maintain sinus mechanism on telemetry. Blood pressure 130/74 heart rate 70 requires high flow oxygen via nasal cannula to maintain normal oxygen saturation and she is afebrile. Laboratory data reviewed, WBC 8.6, hemoglobin 9.3, platelets 226, INR 1.7, sodium 147, potassium 5.4, creatinine 1.0 and magnesium 2.6. Currently maintained on amiodarone 400 mg twice a day, amlodipine 5 mg daily, Lovenox 80 mg twice a day, Lopressor 50 mg twice a day and daily warfarin. ASSESSMENT Acute Covid 19 pneumonitis New onset paroxysmal atrial fibrillation Toxic encephalopathy, stable Prior history of pulmonary embolism and DVT Recent craniotomy secondary to subdural hematoma Hypertension Dyslipidemia PLAN Decrease amiodarone to 200 mg twice a day for 7 days and then decrease to 200 mg daily thereafter. She continues to maintain sinus mechanism and is appropriately anticoagulated with Lovenox bridging. Target INR 2-3. We will follow along as needed, please feel free to call with further questions or concerns. Follow up upon discharge with Dr. English. Nurse Practitioner note has been reviewed, I agree with a documented findings and plan of care. Patient was seen and examined. Objective - Vital Signs Vital signs: Vital Signs Temp 98.7 F 08/25/20 10:31 Pulse 70 08/25/20 10:31 Resp 16 08/25/20 10:31 BP 130/74 08/25/20 10:31 Pulse Ox 98 08/25/20 10:31 Intake & Output 08/24/20 08/25/20 08/25/20 18:59 06:59 18:59 Output Total 600 Balance -600 Weight 104 kg 100.5 kg Output: Urine 600 Other: Voiding Method Indwelling Catheter Indwelling Catheter Indwelling Catheter # Bowel Movements 1 1 - Labs CBC & Chem 7: 08/25/20 05:51 08/25/20 05:51 Labs: Abnormal Lab Results - Last 24 Hours (Table) 01/06/0408/24/20 08/24/20 Range/Units 11:34 17:51 20:23 RBC (3.80-5.40) m/uL Hgb (11.4-16.0) gm/dL Hct (34.0-46.0) % MCV (80.0-100.0) fL RDW (11.5-15.5) % Lymphocytes # (1.0-4.8) k/uL PT (9.9-11.9) sec INR (0.90-1.11) Sodium (135-145) mmol/L Chloride (96-109) mmol/L BUN (9.0-27.0) mg/dL Est GFR (CKD-EPI)NonAf (60.0-200.0) BUN/Creatinine Ratio (12.00-20.00) Ratio Glucose (70-110) mg/dL POC Glucose (mg/dL) 254 H 200 H 188 H (75-99) mg/dL Calcium (8.7-10.3) mg/dL Magnesium (1.5-2.4) mg/dL AST (13-35) U/L ALT (8-44) U/L Alkaline Phosphatase (41-126) U/L Total Protein (6.2-8.2) g/dL Albumin (3.80-4.90) g/dL 08/25/20 08/25/20 08/25/20 Range/Units 05:51 05:51 05:51 RBC 2.76 L (3.80-5.40) m/uL Hgb 9.3 L (11.4-16.0) gm/dL Hct 27.9 L (34.0-46.0) % MCV 101.2 H (80.0-100.0) fL RDW 15.6 H (11.5-15.5) % Lymphocytes # 0.3 L (1.0-4.8) k/uL PT 17.7 H (9.9-11.9) sec INR 1.70 H (0.90-1.11) Sodium 147 H (135-145) mmol/L Chloride 113 H (96-109) mmol/L BUN 55.0 H (9.0-27.0) mg/dL Est GFR (CKD-EPI)NonAf 58.7 L (60.0-200.0) BUN/Creatinine Ratio 55.00 H (12.00-20.00) Ratio Glucose 137 H (70-110) mg/dL POC Glucose (mg/dL) (75-99) mg/dL Calcium 8.6 L (8.7-10.3) mg/dL Magnesium 2.6 H (1.5-2.4) mg/dL AST 51 H (13-35) U/L ALT 342 H (8-44) U/L Alkaline Phosphatase 265 H (41-126) U/L Total Protein 5.4 L (6.2-8.2) g/dL Albumin 3.50 L (3.80-4.90) g/dL 08/25/20 Range/Units 06:59 RBC (3.80-5.40) m/uL Hgb (11.4-16.0) gm/dL Hct (34.0-46.0) % MCV (80.0-100.0) fL RDW (11.5-15.5) % Lymphocytes # (1.0-4.8) k/uL PT (9.9-11.9) sec INR (0.90-1.11) Sodium (135-145) mmol/L Chloride (96-109) mmol/L BUN (9.0-27.0) mg/dL Est GFR (CKD-EPI)NonAf (60.0-200.0) BUN/Creatinine Ratio (12.00-20.00) Ratio Glucose (70-110) mg/dL POC Glucose (mg/dL) 155 H (75-99) mg/dL Calcium (8.7-10.3) mg/dL Magnesium (1.5-2.4) mg/dL AST (13-35) U/L ALT (8-44) U/L Alkaline Phosphatase (41-126) U/L Total Protein (6.2-8.2) g/dL Albumin (3.80-4.90) g/dL
--- NOTE | 2020-08-25 15:29 | PN ---
PROGRESS NOTE Patient is seen for followup for hypernatremia. Patient's serum sodium had improved to about 137, however, it has started to increase again. It is up to 145 yesterday and today it is at 147. Patient denies any significant complaints. She is not on any IV fluids. PHYSICAL EXAMINATION: On examination, blood pressure is 130/74, heart rate 70 per minute. Patient is afebrile. Examination of the leg shows no significant edema. Abdomen is soft, nontender. Lungs and heart are not examined. LABS: Labs show sodium 147, potassium 5.4, chloride 113, CO2 is 27.5, BUN 55, serum creatinine 1.0. Blood sugar is not significantly high. It was around 137. ASSESSMENT: 1. Hypernatremia associated with free water deficit. Encourage increased free water intake. If the patient is not able, I will restart D5W. 2. COVID-19 pneumonia. 3. History of meningioma and left subdural hemorrhage, status post left frontal craniotomy in July. 4. Hypokalemia from diuresis, status post replacement. Potassium, currently on the higher side. PLAN: Encourage increased free water. Consider adding D5W if serum sodium remains elevated tomorrow. Discontinue potassium supplementation. MMODL / IJN: [id number] /
--- NOTE | 2020-08-25 16:11 | P.PN ---
Subjective Progress Note Date: 08/25/20 HISTORY OF PRESENT ILLNESS Ms. Sutherland is a 64 years old female patient of Dr. Siu with past medical history of coronary artery disease, hypertension, history of DVT and pul monary embolism in 2002, fibromyalgia, asthma who presented to the hospital with worsening shortness of breath associated with change in mental status for the past 24 hours. Patient was in [facility] for subdural hemorrhage associated with meningioma in the left frontal lobe. Patient underwent left frontal craniotomy and was discharged on 08/13 on seizure precaution medication and pain medication. Patient's daughter is an RN who checked her oxygen at home which was saturating at 38%. Patient was brought to the hospital by EMS as patient was found unresponsive with her oxygen in the 40s and was placed on a BiPAP. Patient is unable to provide any history as she Is confused. Called patient's who stated that patient was doing well post discharge until last night when she became short of breath and confused. Patient did have acute stroke from the subdural hemorrhage causing right arm and right leg weakness associated with a phase ER. Patient was in the hospital for 6 weeks and recovered from both right upper and lower extremity weakness and a phasia. Patient was smoking at home post discharge. She was evaluated by her daughter who is an RN who insisted on calling EMS as she did not appear well.On evaluation in the ER patient was found to have bilateral groundglass opacities concerning for call with pneumonia. Vital suggested temp of 97.9 pulse 81 blood pressure 122/78 respiratory rate of 20. Call with 19 was positive. WBC 5.8 hemoglobin 10.4. ABG was obtained with a pO2 of 55 pCO2 of 44 . Patient's sodium is 146 chloride 117 BUN 48 creatinine 1.01 glucose 110 AST 74 8079 magnesium 2.5 proBNP 1560 LDH 2556 troponin negative 1 CRP 220. INR is jose vated at 2.6. Pulmonary consult was placed. Patient placed on Solu-Medrol 60 every 6, zinc sulfide 220 vitamin C 1000 mg daily. EKG was normal sinus rhythm with no ST or segment depression or elevation. 1/3 patient assessed in ICU currently on BiPAP. Patient is oriented 2. Patient was not able to tolerate being off BiPAP for even a few minutes to take her medications. Patient is currently on 100% FiO2 on BiPAP saturating at 91- 92% vitals otherwise stable temp of 98.8 pulse 75 respiratory rate 27 blood pressure 129/53. Patient has a drop of hemoglobin from 10.4-8 today with MCV 103. INR is 1.8 subtherapeutic, elevated APTT 50 in origin and d-dimer 0.97. PCO2 is 46 pO2 71 bicarb 28 with a pH of 7.37, sodium 146 chloride 1:15, BUN 48 creatinine 0.87 glucose 125. Alkaline phosphatase has increased to 215 from 1:15, AST increased from 7 to 151 ALT increased from 79 to 201. Ultrasound abdomen ordered to evaluate for liver and gallbladder. 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 Patient is unable to take oral medication will switch patient's medication to IV today 08/18: Patient remains in the intensive care unit on BiPAP. She maintains a pulse ox of 91-96% but quickly drops if BiPAP is removed. She's been afebrile, heart rate 73, blood pressure 146/75. Repeat blood work reveals WBC 6.3, hemoglobin 10, platelet count 173. INR is 3.1. Fibrinogen 572, d-dimer 1.09. Sodium 152, potassium 4.4, chloride 117, CO2 31, BUN 48 and creatinine 0.89. TSH 0.305. ProBNP 1290. C-reactive protein 87.9. CK 22, LDH 2721. Blood sugars running in the 120s and 130s. Repeat chest x-ray reveals continued bilateral airspace disease. Patient has been seen by neurology with recommendations to continue Keppra 500 mg twice daily for seizure prophylaxis. Records from [facility] to be obtained. Patient was started on desmopressin 0.05 mg 1 tablet twice a day for central diabetes insipidus. Vitamin B-12 and folate levels ordered. TSH and ammonia level. Thiamine was started. Patient was also seen by nephrology for hypernatremia and started on normal saline at 50 mL per hour for now. 08/19: Patient remains in the intensive care unit oxygen is down to 80% on BiPAP with pulse ox running between 89 and 92. She has been afebrile, heart rate 73, blood pressure 101/59. Pulse ox drops if BiPAP is removed. We will start a soft diet as she is stating she is hungry. Midline was placed yesterday. Repe at blood work reveals WBC 6.5, hemoglobin 9.2, platelet count 161. D-dimer 2.63, fibrinogen 503, INR 4.1. Creatinine 0.81. Blood sugars run between 146 and 225. Repeat chest x-ray reveals slight improvement of diffuse infiltrate can be compatible with atypical pneumonia. Patient received DDAVP yesterday. She is currently on D5W at 60 mL per hour. She remains on Solu-Medrol 60 mg IV every 6 hours. 08/20: Patient remains in intensive care unit. She is on BiPAP and desats quickly if this is removed down to 75. She is confused and has pulled off her BiPAP. She is able to a very little today due to desaturation. Daughter has been updated during the night of the patient's status. She has been afebrile, heart rate 80, respiratory rate 26-44, blood pressure 169/88, pulse ox 92% on 70% FiO2 on BiPAP. Repeat blood work reveals Gaby BC 6.3, hemoglobin 9.6, platelet count 158. Lymphocytes are 0.7. BUN 36 creatinine 0.72. Blood sugars running between 130 348. Ferritin 2476. AST 92, ALT 198, alkaline phosphatase 294. LDH 2668. CK 0.1, C-reactive protein 22.7. Urine culture is showing gram- negative bacilli. Blood culture no growth after 72 hours 2 specimens. Repeat chest x-ray reveals cardiomegaly with bilateral multifocal acute infiltrates consistent with COVID-19. Patient is continued on IV fluids of D5W at 60 mL per hour and change today to half-normal saline. Patient received 1 dose of IV Lasix this morning. Desmopressin was discontinued as central diabetes insipidus was ruled out. 08/21: The patient is more alert today. She is now on high flow AirVo with FiO2 of 85%. Patient was able to tolerate chopped diet as morning. She was started yesterday on TPN. She is complaining of right shoulder pain which is of chronic nature and [place] resumed as well as lidocaine cream started. Patient has been afebrile, heart rate 82, blood pressure 156/75. Respiratory rate 24. Pulse ox 93% on FiO2 of 85%. bus monitor is a sinus rhythm. Repeat chest x-ray reveals stable bilateral lung infiltrates. Repeat blood work reveals WBC 7.4, hemoglobin 9.5. Creatinine 0.73. Blood sugars between 148 and 165. Liver function tests remain elevated with total bilirubin 1, AST 78, ALT 233, alkaline phosphatase 286. LDH is 2566. CK less than 20. C-reactive protein 10.8. Urine culture finalized with E. coli. Blood cultures showing no growth. 08/22: Patient remains in the intensive care unit. Oxygen is down to 70% with pulse ox of 95%. Heart rate is 140 and patient went into atrial fibrillation currently transitioned to oral amiodarone and Cardizem drip. TPN was started and patient ate 50% of her breakfast this morning. She has been afebrile. Blood pressure 147/83. Repeat blood work reveals WBC 8, hemoglobin 9.4. Blood sugars running between 228 and 300. Electrolytes normal, creatinine 0.72. Phosphorus 3.1, magnesium 2.4. Ferritin 2011, total bilirubin 0.6, AST 75, ALT 288, alkaline phosphatase 282. LDH 2469. CK less than 20. 08/23: Patient remains in the intensive care unit but has progressed very well over the past 24 hours and is scheduled for transfer out to the [facility] floor. Repeat chest x-ray reveals stable diffuse bilateral infiltrates. Dr. English has recommended continued treatment for blood pressure and his blood pressure is stable, clonidine patch can be discontinued. Patient continued on beta josh and amiodarone for another 72 hours and then amiodarone dose can be decreased. The patient can be switched back to oral Coumadin. She has been afebrile, heart rate 69, blood pressure 133/71, pulse ox 95% on high flow nasal cannula 15 L. WBC 9.0, hemoglobin 8.2. Electrolytes normal, BUN 42 and creatinine 0.77. Blood sugars running between 179 and 291. LDH 1980. Total bilirubin 0.5. AST 37, ALT 211, alkaline phosphatase 258. 08/24: Patient continues to have cough. Patient has been afebrile, heart rate 80, blood pressure 138/79, pulse ox 94-97% on 15 L high flow nasal cannula. INR is 1.2. Patient was started on Coumadin last night of 5 mg, pharmacy dosing. Blood sugar 129 244.She is very much looking forward to getting home eventually. She is agreeable to subacute rehab and PT has recommended subacute rehab. We will plan for his manager language/community mental health social worker following up tomorrow. 08/25: Patient's pain status continues to improve. She has been afebrile, heart rate 76, blood pressure 163/74, pulse ox is 98% on 10 L high flow nasal cannula. WBC 8.6, hemoglobin 9.3, platelet count 226. Patient denies any abdominal pain. She is tolerating diet. She is continued on IV Solu-Medrol. INR today 1.7 and pharmacy is dosing Coumadin. Sodium 147, potassium 5.4, chloride 113, CO2 27.5. BUN 55 and creatinine 1. Blood sugars run between 137-188. Liver function tests remain elevated with AST 51, ALT 342, alkaline phosphatase 265. Nephrology has discontinued potassium supplement and considering D5W tomorrow sodium remains elevated. PT and OT to start working with the patient is a need for subacute rehab. REVIEW OF SYSTEMS Constitutional: No fever, no chills, no night sweats. No weight change. Reports continuedweakness, reports fatigue, reports daytime sleepiness. EENT: No headache. No blurred vision or double vision, no loss of vision. No loss of Hearing, no ringing in the ears, no dizziness. No nasal drainage or congestion. No epistaxis. No sore throat. Lungs: Reports continued shortness of breath, reports cough, no sputum production. No wheezing. Cardiovascular: No chest pain, no lower extremity edema. No palpitations. No paroxysmal nocturnal dyspnea. No orthopnea. No lightheadedness or dizziness. No syncopal episodes. Abdominal: No abdominal pain. No nausea, vomiting. No diarrhea. No constipation. No bloody or tarry stools. Reports increased appetite. Genitourinary: No dysuria, increased frequency, urgency. No urinary retention. Moses catheter in place. Musculoskeletal: No myalgias. No muscle weakness, no gait dysfunction, no frequent falls. No back pain. No neck pain. Integumentary: No wounds, no lesions. No rash or pruritus. No unusual bruising. Neurologic: No aphasia. No facial droop. No change in mentation. No head injury. No headache. No paralysis. No paresthesia. Psychiatric: No depression. No anxiety. No mood swings. Endocrine: No abnormal blood sugars. No weight change. PHYSICAL EXAMINATION Gen: This is a 63-year-old female. She is seen today on the [facility] floor.. HEENT: Head is atraumatic, normocephalic. Pupils equal, round. Sclerae is anicteric. NECK: Supple. No JVD. No lymphadenopathy. No thyromegaly. LUNGS: Scattered rhonchi. No wheezes. Mild intercostal retractions. HEART: Regular rate and rhythm. 3/6 systolic murmur. ABDOMEN: Soft. Bowel sounds are present. No masses. No tenderness. Moses catheter in place. EXTREMITIES: No pedal edema. No calf tenderness. NEUROLOGICAL: Patient is awake, alert and oriented to person and place. ASSESSMENT AND PLAN 1. Acute hypoxic respiratory failure secondary to COVID-19 Pneumonia and COPD exacerbation. Consult with pulmonary medicine appreciated. Continue oxygen therapy. 2. COVID-19 pneumonia. Continue vitamin C, vitamin D, zinc, Solu-Medrol 60 mg IV every 6 hours, Lovenox. 3. COPD exacerbation. Continue Solu-Medrol 60 mg IV every 6 hours, pulmonary consult appreciated. 4. Acute hemorrhagic stroke with acute left subdural hemorrhage with benign t umor status post left frontal craniotomy. Patient was discharged on August 13 from [facility]/rehab facility. Continue Keppra and steroids. Consult with neurology appreciated. 5. Acute toxic metabolic encephalopathy secondary to Covid 19, hyponatremia. Neurology consult appreciated. Continue Keppra for prophylaxis seizure activity. Hold Lyrica. [place] resumed for shoulder pain. IV Keppra will be transitioned to oral. 6. Central diabetes insipidus ruled out. 7. History of pulmonary embolism and DVT. Continue Lovenox 80 mg subcu every 12 hours. Resume Coumadin 5 mg tonight. Monitor INR daily. 8. History of coronary artery disease. Continue Lopressor 9. Hypertension. Continue Lopressor 5 mg IV push every 6 hours as needed, hydralazine 10 mg IV push every 6 hours as needed 10. Hypothyroidism. Patient will be resumed on levothyroxine 25 g IV daily. 11. Hyperlipidemia. Hold pravastatin. 12. Recurrent depression. Continue venlafaxine 150 mg oral daily. Seroquel 25 mg at bedtime. 13. GI prophylaxis. Pepcid 20 mg IV every 12 hours. 14. DVT prophylaxis. Lovenox subcu. 15. UTI. Patient started on Rocephin. 16. Chronic right shoulder pain. [place] and lidocaine cream. 17. Severe protein calorie malnutrition. TPN has been discontinued. Continue oral diet. 18. Hyperglycemia secondary to steroids. Hemoglobin A1c is 5.6. Levemir inc reased to 12 units twice daily, continue NovoLog scale before meals and at bedtime. 19. Hypernatremia. Nephrology is following. Possible need for D5W tomorrow. Potassium discontinued. DISCHARGE PLAN Subacute rehab this week. Impression and plan of care have been directed as dictated by the signing physician. Karyn Tamayo nurse practitioner acting as scribe for signing physician. Objective - Vital Signs Vital signs: Vital Signs Temp 98.6 F 08/25/20 04:50 Pulse 76 08/25/20 07:23 Resp 16 08/25/20 07:23 BP 163/74 08/25/20 04:50 Pulse Ox 98 08/25/20 04:50 Intake & Output 08/24/20 08/25/20 08/25/20 18:59 06:59 18:59 Output Total 600 Balance -600 Weight 104 kg 100.5 kg Output: Urine 600 Other: Voiding Method Indwelling Catheter Indwelling Catheter Indwelling Catheter # Bowel Movements 1 1 - Labs CBC & Chem 7: 08/25/20 05:51 08/25/20 05:51 Labs: Abnormal Lab Results - Last 24 Hours (Table) 08/24/20 08/24/20 08/24/20 Range/Units 05:15 11:34 17:51 RBC (3.80-5.40) m/uL Hgb (11.4-16.0) gm/dL Hct (34.0-46.0) % MCV (80.0-100.0) fL RDW (11.5-15.5) % Lymphocytes # (1.0-4.8) k/uL Chloride 111 H (96-109) mmol/L BUN 48.0 H (9.0-27.0) mg/dL BUN/Creatinine Ratio 60.00 H (12.00-20.00) Ratio Glucose 125 H (70-110) mg/dL POC Glucose (mg/dL) 254 H 200 H (75-99) mg/dL Calcium 8.6 L (8.7-10.3) mg/dL Magnesium 2.5 H (1.5-2.4) mg/dL AST 47 H (13-35) U/L ALT 254 H (8-44) U/L Alkaline Phosphatase 280 H (41-126) U/L Total Protein 5.2 L (6.2-8.2) g/dL Albumin 3.40 L (3.80-4.90) g/dL 08/24/20 08/25/20 08/25/20 Range/Units 20:23 05:51 06:59 RBC 2.76 L (3.80-5.40) m/uL Hgb 9.3 L (11.4-16.0) gm/dL Hct 27.9 L (34.0-46.0) % MCV 101.2 H (80.0-100.0) fL RDW 15.6 H (11.5-15.5) % Lymphocytes # 0.3 L (1.0-4.8) k/uL Chloride (96-109) mmol/L BUN (9.0-27.0) mg/dL BUN/Creatinine Ratio (12.00-20.00) Ratio Glucose (70-110) mg/dL POC Glucose (mg/dL) 188 H 155 H (75-99) mg/dL Calcium (8.7-10.3) mg/dL Magnesium (1.5-2.4) mg/dL AST (13-35) U/L ALT (8-44) U/L Alkaline Phosphatase (41-126) U/L Total Protein (6.2-8.2) g/dL Albumin (3.80-4.90) g/dL
--- NOTE | 2020-08-25 16:53 | PN ---
PROGRESS NOTE This is a 64-year-old female who was admitted back on August 16. She was admitted with a diagnosis of COVID-19 pneumonitis and hypoxemic respiratory failure. She did not receive remdesivir because she was outside the window. Currently the patient is doing better. She did receive 2 units of convalescent plasma. She was discharged out of the ICU a couple days back. She is currently on between 10 and 15 L high-flow oxygen therapy. Her saturations are in the low 90s. Her urine tested positive for E coli. Her inflammatory markers are reviewed. She remains on ceftriaxone. PHYSICAL EXAMINATION: VITAL SIGNS: Current vital signs are stable and include temperature 98.7, heart rate 70, respiratory rate 16, blood pressure 130/74, mean 92, and 10-liter high-flow oxygen saturations are 98%. That can be titrated down. HEENT: Examination is grossly unremarkable. Nasal oxygen noted. NECK: Supple. Full range of motion. No adenopathy. Neck veins are flat. CARDIOVASCULAR: Examination reveals regular rhythm and rate. S1, S2 normal. No S3, S4, murmur. Heart rate 70. LUNGS: Lungs reveal a few scattered rhonchi. No wheezes. Some bilateral basilar crackles are noted. ABDOMEN: Soft. Bowel sounds are heard. EXTREMITIES: Intact. No cyanosis, clubbing or edema. SKIN: Without rash. NEUROLOGIC: Neurologic examination is nonfocal. LABS: White count 8.6, hemoglobin 9.3, hematocrit 27.9, platelet count 226,000. PT 17.7, INR 1.7. Sodium 147, potassium 5.4, chloride 113, CO2 27.5. BUN and creatinine were 55 and 1.0. Her AST is 51, ALT 342. The rest of her labs are reviewed. Microbiology is showing E coli in the urine. That is from August 18. No recent chest x-ray. CURRENT MEDICATIONS: Reviewed. The patient is on Cordarone, amlodipine, vitamin C, Tums, ceftriaxone, vitamin D3, vitamin B12, Colace, Lovenox, famotidine, hydralazine, [place], NovoLog insulin, Keppra, levothyroxine, lidocaine cream, melatonin, Solu-Medrol, metoprolol, potassium replacement, Seroquel, thiamine, warfarin and zinc. ASSESSMENT: 1. Acute hypoxemic respiratory failure secondary to COVID-19 pneumonia/pneumonitis. The patient was outside the remdesivir window but did receive 2 units of convalescent plasma. 2. Recent history of hemorrhagic stroke with left subdural hematoma, status post left frontal craniotomy and evacuation. 3. Metabolic encephalopathy. 4. History of pulmonary embolism and deep venous thrombosis. 5. History of coronary artery disease. 6. Benign essential hypertension. 7. Hypothyroidism. 8. Hyperlipidemia. 9. History of paroxysmal atrial fibrillation. PLAN: Currently the patient has been weaned down to 10 L high-flow nasal oxygen. Her saturations are excellent, and she can probably come down further. She remains on appropriate treatment. She remains on steroids, vitamin C, vitamin D3 and zinc. Will continue to follow. Prognosis is guarded. MMODL / IJN: [id number] /
[2020-08-25 17:26] LABS: Glucose,Whole Blood 218 mg/dL (75-99)
[2020-08-25] MEDS: methylPREDNISolone SOD SUCCI 40 MG/ML 1 ML VIAL IV SCH ×2 (17:53→23:23)
[2020-08-25] MEDS ORDERED: WARFARIN 2 MG TAB PO ONE (18:00)
[2020-08-25] MEDS: MELATONIN 5 MG TABLET PO SCH (21:15)
[2020-08-25] MEDS: QUEtiapine 25 MG TAB PO SCH (21:16)
[2020-08-25 21:34] LABS: Glucose,Whole Blood 181 mg/dL (75-99)
[2020-08-26] MEDS: methylPREDNISolone SOD SUCCI 40 MG/ML 1 ML VIAL IV SCH ×4 (05:07→23:44)
[2020-08-26] MEDS: LEVOTHYROXINE 75 MCG TAB PO SCH (05:07)
[2020-08-26 06:58] LABS: Glucose,Whole Blood 150 mg/dL (75-99)
[2020-08-26] MEDS: INSULIN DETEMIR (LEVEMIR) 100 UNIT/ML SYR SQ SCH ×2 (09:03→20:58)
[2020-08-26] MEDS: METOPROLOL TARTRATE 50 MG TAB PO SCH ×2 (09:03→20:58)
[2020-08-26] MEDS: INSULIN ASPART (NovoLOG) 100 UNIT/ML VIAL SQ SCH ×4 (09:04→21:33)
[2020-08-26] MEDS: CYANOCOBALAMIN 500 MCG TAB PO SCH (09:04)
[2020-08-26] MEDS: FAMOTIDINE 20 MG/2 ML VIAL IV SCH ×2 (09:05→20:58)
[2020-08-26] MEDS: DOCUSATE 100 MG CAP PO SCH (09:05)
[2020-08-26] MEDS: AMIODARONE 200 MG TAB PO SCH ×2 (09:05→20:58)
[2020-08-26] MEDS: THIAMINE 100 MG TAB PO SCH (09:05)
[2020-08-26] MEDS: ASCORBIC ACID 500 MG TAB PO SCH (09:05)
[2020-08-26] MEDS: CHOLECALCIFEROL 1,000 UNIT TAB PO SCH (09:05)
[2020-08-26] MEDS: amLODIPine 5 MG TAB PO SCH (09:06)
[2020-08-26] MEDS: ENOXAPARIN 80 MG/0.8 ML SYRINGE SQ SCH (09:06)
[2020-08-26] MEDS: ZINC SULFATE 220 MG CAP PO SCH (09:06)
[2020-08-26] MEDS: levETIRAcetam 500 MG TAB PO SCH ×2 (09:06→20:58)
[2020-08-26] MEDS: VENLAFAXINE HCL ER 150 MG CAP PO SCH (09:06)
--- NOTE | 2020-08-26 10:27 | P.PN ---
Subjective Progress Note Date: 08/26/20 Principal diagnosis: COVID 19 pneumonia This is a 64-year-old white female patient that was admitted on 08/16/2020 with a diagnosis of Coumadin team pneumonitis, patient required intensive care admission, requiring high flow oxygen, and BiPAP support. She was out of the window for Remdesivir, she is status post transfusion with 2 units of convalescent plasma, she remains on IV steroids currently down to 40 mg every 6 hours, she is on Coumadin, and she is on Lovenox at 80 mg twice daily. He is awake and alert, she is currently down to 8 L of oxygen, she has not required B iPAP support overnight, pulse ox is 94-96%, doing well, no fever or chills, breathing has much improved since admission, still has exertional dyspnea, overall she is weak, she is currently participating with physical therapy, vital signs have been stable, is not had a chest x-ray since August which showed stable diffuse bilateral infiltrates. Yesterday's INR was 1.7, last d- dimer from [facility] was 1.21. Objective - Vital Signs Vital signs: Vital Signs Temp 97.5 F L 08/26/20 05:00 Pulse 75 08/26/20 05:00 Resp 16 08/26/20 05:00 BP 106/76 08/26/20 05:00 Pulse Ox 94 L 08/26/20 08:23 Intake & Output 08/25/20 08/26/20 08/26/20 18:59 06:59 18:59 Output Total 1025 475 Balance -1025 -475 Weight 101.5 kg Output: Urine 1025 475 Other: Voiding Method Indwelling Catheter Indwelling Catheter # Bowel Movements 1 - Exam GENERAL EXAM: Alert, active, very pleasant, obese 64-year-old white female, currently on 8 L of oxygen pulse ox of 93-96% comfortable in no apparent distress. HEAD: Normocephalic/atraumatic. EYES: Normal reaction of pupils, equal size. Conjunctiva pink, sclera white. NOSE: Clear with pink turbinates. THROAT: No erythema or exudates. NECK: No masses, no JVD, no thyroid enlargement, no adenopathy. CHEST: No chest wall deformity. Symmetrical expansion. LUNGS: Equal air entry with reddish breath sounds, CVS: Regular rate and rhythm, normal S1 and S2, no gallops, no murmurs, no rubs ABDOMEN: Soft, nontender. No hepatosplenomegaly, normal bowel sounds, no guarding or rigidity. EXTREMITIES: No clubbing, no edema, no cyanosis, 2+ pulses and upper and lower extremities. MUSCULOSKELETAL: Muscle strength and tone normal. SPINE: No scoliosis or deformity SKIN: No rashes CENTRAL NERVOUS SYSTEM: Alert and oriented -3. No focal deficits, tone is normal in all 4 extremities. PSYCHIATRIC: Alert and oriented -3. Appropriate affect. Intact judgment and insight. - Labs CBC & Chem 7: 08/25/20 05:51 08/25/20 05:51 Labs: Abnormal Lab Results - Last 24 Hours (Table) 08/22/20 08/25/20 08/25/20 Range/Units 11:01 11:16 17:21 POC Glucose (mg/dL) 154 H 218 H (75-99) mg/dL Interleukin 6 9.2 H (<6.4) pg/mL 08/25/20 08/26/20 Range/Units 21:32 06:54 POC Glucose (mg/dL) 181 H 150 H (75-99) mg/dL Interleukin 6 (<6.4) pg/mL Assessment and Plan Plan: Assessment: #1. Acute hypoxemic respiratory failure second to quit in 19 pneumonia/pneumoni tis, patient missed the Remdesivir window but did receive 2 units of convalescent plasma received anticoagulation in the form of Lovenox at therapeutic doses, and IV steroids #2. Recent history of hemorrhagic stroke with left subdural hematoma, status post left frontal craniotomy and evacuation #3. Metabolic encephalopathy, improved #4. History of pulmonary embolism and deep venous thrombosis #5. History of coronary artery disease #6. Benign essential hypertension #7. Hypothyroidism #8. Hyperlipidemia #9. History of problems point atrial fibrillation on Coumadin #10. Hypernatremia Plan: Continue weaning down FiO2 to keep O2 sat at 90% or better, increase activity as tolerated, continue same dose IV steroids, we will obtain follow-up chest x-ray, obtain follow-up d-dimer, PT INR, continue vitamin C, vitamin D3 and zinc, continue physical therapy I performed a history & physical examination of the patient and discussed their management with my nurse practitioner, Meenu Baker. I reviewed the nurse practitioner's note and agree with the documented findings and plan of care. Lung sounds are positive for bilateral crackles. The findings and the impression was discussed with the patient. I attest to the documentation by the nurse practitioner. Time with Patient: Less than 30
[2020-08-26 10:36] LABS: INR 2.29 (0.90-1.11); Prothrombin Time 23.3 sec (9.9-11.9)
[2020-08-26 11:06] LABS: African American GFR (CKD) >90 (>60 ml/min/1.73 sqM); Anion Gap 2 mmol/L; Blood Urea Nitrogen 49 mg/dL (7-17); Calcium 8.9 mg/dL (8.4-10.2); Carbon Dioxide 31 mmol/L (22-30); Chloride 111 mmol/L (98-107); Glucose 159 mg/dL (74-99); Non-African American GFR(CKD) 83 (>60 ml/min/1.73 sqM); Potassium 5.1 mmol/L (3.5-5.1); Sodium 144 mmol/L (137-145)
[2020-08-26 11:23] LABS: Glucose,Whole Blood 140 mg/dL (75-99)
--- NOTE | 2020-08-26 14:33 | P.PN ---
Subjective Progress Note Date: 08/26/20 HISTORY OF PRESENT ILLNESS Ms. Sutherland is a 64 years old female patient of Dr. Siu with past medical history of coronary artery disease, hypertension, history of DVT and pul monary embolism in 2002, fibromyalgia, asthma who presented to the hospital with worsening shortness of breath associated with change in mental status for the past 24 hours. Patient was in [facility] for subdural hemorrhage associated with meningioma in the left frontal lobe. Patient underwent left frontal craniotomy and was discharged on 08/13 on seizure precaution medication and pain medication. Patient's daughter is an RN who checked her oxygen at home which was saturating at 38%. Patient was brought to the hospital by EMS as patient was found unresponsive with her oxygen in the 40s and was placed on a BiPAP. Patient is unable to provide any history as she Is confused. Called patient's who stated that patient was doing well post discharge until last night when she became short of breath and confused. Patient did have acute stroke from the subdural hemorrhage causing right arm and right leg weakness associated with a phase ER. Patient was in the hospital for 6 weeks and recovered from both right upper and lower extremity weakness and a phasia. Patient was smoking at home post discharge. She was evaluated by her daughter who is an RN who insisted on calling EMS as she did not appear well.On evaluation in the ER patient was found to have bilateral groundglass opacities concerning for call with pneumonia. Vital suggested temp of 97.9 pulse 81 blood pressure 122/78 respiratory rate of 20. Call with 19 was positive. WBC 5.8 hemoglobin 10.4. ABG was obtained with a pO2 of 55 pCO2 of 44 . Patient's sodium is 146 chloride 117 BUN 48 creatinine 1.01 glucose 110 AST 74 8079 magnesium 2.5 proBNP 1560 LDH 2556 troponin negative 1 CRP 220. INR is jose vated at 2.6. Pulmonary consult was placed. Patient placed on Solu-Medrol 60 every 6, zinc sulfide 220 vitamin C 1000 mg daily. EKG was normal sinus rhythm with no ST or segment depression or elevation. 1/3 patient assessed in ICU currently on BiPAP. Patient is oriented 2. Patient was not able to tolerate being off BiPAP for even a few minutes to take her medications. Patient is currently on 100% FiO2 on BiPAP saturating at 91- 92% vitals otherwise stable temp of 98.8 pulse 75 respiratory rate 27 blood pressure 129/53. Patient has a drop of hemoglobin from 10.4-8 today with MCV 103. INR is 1.8 subtherapeutic, elevated APTT 50 in origin and d-dimer 0.97. PCO2 is 46 pO2 71 bicarb 28 with a pH of 7.37, sodium 146 chloride 1:15, BUN 48 creatinine 0.87 glucose 125. Alkaline phosphatase has increased to 215 from 1:15, AST increased from 7 to 151 ALT increased from 79 to 201. Ultrasound abdomen ordered to evaluate for liver and gallbladder. 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 Patient is unable to take oral medication will switch patient's medication to IV today 08/18: Patient remains in the intensive care unit on BiPAP. She maintains a pulse ox of 91-96% but quickly drops if BiPAP is removed. She's been afebrile, heart rate 73, blood pressure 146/75. Repeat blood work reveals WBC 6.3, hemoglobin 10, platelet count 173. INR is 3.1. Fibrinogen 572, d-dimer 1.09. Sodium 152, potassium 4.4, chloride 117, CO2 31, BUN 48 and creatinine 0.89. TSH 0.305. ProBNP 1290. C-reactive protein 87.9. CK 22, LDH 2721. Blood sugars running in the 120s and 130s. Repeat chest x-ray reveals continued bilateral airspace disease. Patient has been seen by neurology with recommendations to continue Keppra 500 mg twice daily for seizure prophylaxis. Records from [facility] to be obtained. Patient was started on desmopressin 0.05 mg 1 tablet twice a day for central diabetes insipidus. Vitamin B-12 and folate levels ordered. TSH and ammonia level. Thiamine was started. Patient was also seen by nephrology for hypernatremia and started on normal saline at 50 mL per hour for now. 08/19: Patient remains in the intensive care unit oxygen is down to 80% on BiPAP with pulse ox running between 89 and 92. She has been afebrile, heart rate 73, blood pressure 101/59. Pulse ox drops if BiPAP is removed. We will start a soft diet as she is stating she is hungry. Midline was placed yesterday. Repe at blood work reveals WBC 6.5, hemoglobin 9.2, platelet count 161. D-dimer 2.63, fibrinogen 503, INR 4.1. Creatinine 0.81. Blood sugars run between 146 and 225. Repeat chest x-ray reveals slight improvement of diffuse infiltrate can be compatible with atypical pneumonia. Patient received DDAVP yesterday. She is currently on D5W at 60 mL per hour. She remains on Solu-Medrol 60 mg IV every 6 hours. 08/20: Patient remains in intensive care unit. She is on BiPAP and desats quickly if this is removed down to 75. She is confused and has pulled off her BiPAP. She is able to a very little today due to desaturation. Daughter has been updated during the night of the patient's status. She has been afebrile, heart rate 80, respiratory rate 26-44, blood pressure 169/88, pulse ox 92% on 70% FiO2 on BiPAP. Repeat blood work reveals Gaby BC 6.3, hemoglobin 9.6, platelet count 158. Lymphocytes are 0.7. BUN 36 creatinine 0.72. Blood sugars running between 130 348. Ferritin 2476. AST 92, ALT 198, alkaline phosphatase 294. LDH 2668. CK 0.1, C-reactive protein 22.7. Urine culture is showing gram- negative bacilli. Blood culture no growth after 72 hours 2 specimens. Repeat chest x-ray reveals cardiomegaly with bilateral multifocal acute infiltrates consistent with COVID-19. Patient is continued on IV fluids of D5W at 60 mL per hour and change today to half-normal saline. Patient received 1 dose of IV Lasix this morning. Desmopressin was discontinued as central diabetes insipidus was ruled out. 08/21: The patient is more alert today. She is now on high flow AirVo with FiO2 of 85%. Patient was able to tolerate chopped diet as morning. She was started yesterday on TPN. She is complaining of right shoulder pain which is of chronic nature and [place] resumed as well as lidocaine cream started. Patient has been afebrile, heart rate 82, blood pressure 156/75. Respiratory rate 24. Pulse ox 93% on FiO2 of 85%. cardiovascular or nurse is a sinus rhythm. Repeat chest x-ray reveals stable bilateral lung infiltrates. Repeat blood work reveals WBC 7.4, hemoglobin 9.5. Creatinine 0.73. Blood sugars between 148 and 165. Liver function tests remain elevated with total bilirubin 1, AST 78, ALT 233, alkaline phosphatase 286. LDH is 2566. CK less than 20. C-reactive protein 10.8. Urine culture finalized with E. coli. Blood cultures showing no growth. 08/22: Patient remains in the intensive care unit. Oxygen is down to 70% with pulse ox of 95%. Heart rate is 140 and patient went into atrial fibrillation currently transitioned to oral amiodarone and Cardizem drip. TPN was started and patient ate 50% of her breakfast this morning. She has been afebrile. Blood pressure 147/83. Repeat blood work reveals WBC 8, hemoglobin 9.4. Blood sugars running between 228 and 300. Electrolytes normal, creatinine 0.72. Phosphorus 3.1, magnesium 2.4. Ferritin 2011, total bilirubin 0.6, AST 75, ALT 288, alkaline phosphatase 282. LDH 2469. CK less than 20. 08/23: Patient remains in the intensive care unit but has progressed very well over the past 24 hours and is scheduled for transfer out to the [facility] floor. Repeat chest x-ray reveals stable diffuse bilateral infiltrates. Dr. English has recommended continued treatment for blood pressure and his blood pressure is stable, clonidine patch can be discontinued. Patient continued on beta josh and amiodarone for another 72 hours and then amiodarone dose can be decreased. The patient can be switched back to oral Coumadin. She has been afebrile, heart rate 69, blood pressure 133/71, pulse ox 95% on high flow nasal cannula 15 L. WBC 9.0, hemoglobin 8.2. Electrolytes normal, BUN 42 and creatinine 0.77. Blood sugars running between 179 and 291. LDH 1980. Total bilirubin 0.5. AST 37, ALT 211, alkaline phosphatase 258. 08/24: Patient continues to have cough. Patient has been afebrile, heart rate 80, blood pressure 138/79, pulse ox 94-97% on 15 L high flow nasal cannula. INR is 1.2. Patient was started on Coumadin last night of 5 mg, pharmacy dosing. Blood sugar 129 244.She is very much looking forward to getting home eventually. She is agreeable to subacute rehab and PT has recommended subacute rehab. We will plan for his commercial manager/licensed master social worker following up tomorrow. 08/25: Patient's pain status continues to improve. She has been afebrile, heart rate 76, blood pressure 163/74, pulse ox is 98% on 10 L high flow nasal cannula. WBC 8.6, hemoglobin 9.3, platelet count 226. Patient denies any abdominal pain. She is tolerating diet. She is continued on IV Solu-Medrol. INR today 1.7 and pharmacy is dosing Coumadin. Sodium 147, potassium 5.4, chloride 113, CO2 27.5. BUN 55 and creatinine 1. Blood sugars run between 137-188. Liver function tests remain elevated with AST 51, ALT 342, alkaline phosphatase 265. Nephrology has discontinued potassium supplement and considering D5W tomorrow sodium remains elevated. PT and OT to start working with the patient is a need for subacute rehab. 08/26: She has been afebrile, heart rate 75, blood pressure 106/76, pulse ox 90- 96% on 8 L high flow nasal cannula. Blood sugars running between 150 and 218. Repeat INR 2.29 and Lovenox will be discontinued. Patient continues to complain of weakness. She denies having any diarrhea. Patient is awake and alert. No mental status changes. general manager road production is in process of making discharge plans with patient's . REVIEW OF SYSTEMS Constitutional: No fever, no chills, no night sweats. No weight change. Reports continued weakness, reports fatigue, reports daytime sleepiness. EENT: No headache. No blurred vision or double vision, no loss of vision. No loss of Hearing, no ringing in the ears, no dizziness. No nasal drainage or congestion. No epistaxis. No sore throat. Lungs: Reports continued shortness of breath improving, reports cough, no sputum production. No wheezing. Cardiovascular: No chest pain, no lower extremity edema. No palpitations. No paroxysmal nocturnal dyspnea. No orthopnea. No lightheadedness or dizziness. No syncopal episodes. Abdominal: No abdominal pain. No nausea, vomiting. No diarrhea. No constipation. No bloody or tarry stools. Reports increased appetite. Genitourinary: No dysuria, increased frequency, urgency. No urinary retention. Moses catheter in place. Musculoskeletal: No myalgias. No muscle weakness, no gait dysfunction, no frequent falls. No back pain. No neck pain. Integumentary: No wounds, no lesions. No rash or pruritus. No unusual bruising. Neurologic: No aphasia. No facial droop. No change in mentation. No head injury. No headache. No paralysis. No paresthesia. Psychiatric: No depression. No anxiety. No mood swings. Endocrine: No abnormal blood sugars. No weight change. PHYSICAL EXAMINATION Gen: This is a 63-year-old female. She is seen today on the [facility] floor. HEENT: Head is atraumatic, normocephalic. Pupils equal, round. Sclerae is anicteric. NECK: Supple. No JVD. No lymphadenopathy. No thyromegaly. LUNGS: Scattered rhonchi. No wheezes. Mild intercostal retractions. HEART: Regular rate and rhythm. 3/6 systolic murmur. ABDOMEN: Soft. Bowel sounds are present. No masses. No tenderness. Moses catheter in place. EXTREMITIES: No pedal edema. No calf tenderness. NEUROLOGICAL: Patient is awake, alert and oriented to person and place. ASSESSMENT AND PLAN 1. Acute hypoxic respiratory failure secondary to COVID-19 Pneumonia and COPD exacerbation. Consult with pulmonary medicine appreciated. Continue oxygen therapy. 2. COVID-19 pneumonia. Continue vitamin C, vitamin D, zinc, Solu-Medrol decreased to 40 mg IV every 6 hours, Lovenox. 3. COPD exacerbation. Continue Solu-Medrol 60 mg IV every 6 hours, pulmonary consult appreciated. 4. Acute hemorrhagic stroke with acute left subdural hemorrhage with benign tumor status post left frontal craniotomy. Patient was discharged on August 13 from [facility]/rehab facility. Continue Keppra and steroids. Cons ult with neurology appreciated. 5. Acute toxic metabolic encephalopathy secondary to Covid 19, hyponatremia. Neurology consult appreciated. Continue Keppra for prophylaxis seizure activity. Hold Lyrica. [place] resumed for shoulder pain. IV Keppra will be transitioned to oral. 6. Central diabetes insipidus ruled out. 7. History of pulmonary embolism and DVT. Continue Lovenox 80 mg subcu every 12 hours. Resume Coumadin 5 mg tonight. Monitor INR daily. 8. History of coronary artery disease. Continue Lopressor 9. Hypertension. Continue Lopressor 5 mg IV push every 6 hours as needed, hydralazine 10 mg IV push every 6 hours as needed 10. Hypothyroidism. Patient will be resumed on levothyroxine 25 g IV daily. 11. Hyperlipidemia. Hold pravastatin. 12. Recurrent depression. Continue venlafaxine 150 mg oral daily. Seroquel 25 mg at bedtime. 13. GI prophylaxis. Pepcid 20 mg IV every 12 hours. 14. DVT prophylaxis. Lovenox subcu. 15. UTI. Patient started on Rocephin. 16. Chronic right shoulder pain. [place] and lidocaine cream. 17. Severe protein calorie malnutrition. TPN has been discontinued. Continue oral diet. 18. Hyperglycemia secondary to steroids. Hemoglobin A1c is 5.6. Levemir increased to 12 units twice daily, continue NovoLog scale before meals and at bedtime. 19. Hypernatremia. Nephrology is following. DISCHARGE PLAN Subacute rehab this week. Impression and plan of care have been directed as dictated by the signing physician. Karyn Tamayo nurse practitioner acting as scribe for signing physician. Objective - Vital Signs Vital signs: Vital Signs Temp 97.5 F L 08/26/20 05:00 Pulse 75 08/26/20 05:00 Resp 16 08/26/20 05:00 BP 106/76 08/26/20 05:00 Pulse Ox 96 08/26/20 05:00 Intake & Output 08/25/20 08/26/20 08/26/20 18:59 06:59 18:59 Output Total 1025 475 Balance -1025 -475 Weight 101.5 kg Output: Urine 1025 475 Other: Voiding Method Indwelling Catheter Indwelling Catheter - Labs CBC & Chem 7: 08/25/20 05:51 08/26/20 05:28 Labs: Abnormal Lab Results - Last 24 Hours (Table) 08/22/20 08/25/20 08/25/20 Range/Units 11:01 05:51 05:51 PT 17.7 H (9.9-11.9) sec INR 1.70 H (0.90-1.11) Sodium 147 H (135-145) mmol/L Chloride 113 H (96-109) mmol/L BUN 55.0 H (9.0-27.0) mg/dL Est GFR (CKD-EPI)NonAf 58.7 L (60.0-200.0) BUN/Creatinine Ratio 55.00 H (12.00-20.00) Ratio Glucose 137 H (70-110) mg/dL POC Glucose (mg/dL) (75-99) mg/dL Calcium 8.6 L (8.7-10.3) mg/dL Magnesium 2.6 H (1.5-2.4) mg/dL AST 51 H (13-35) U/L ALT 342 H (8-44) U/L Alkaline Phosphatase 265 H (41-126) U/L Total Protein 5.4 L (6.2-8.2) g/dL Albumin 3.50 L (3.80-4.90) g/dL Interleukin 6 9.2 H (<6.4) pg/mL 08/25/20 08/25/20 08/25/20 Range/Units 11:16 17:21 21:32 PT (9.9-11.9) sec INR (0.90-1.11) Sodium (135-145) mmol/L Chloride (96-109) mmol/L BUN (9.0-27.0) mg/dL Est GFR (CKD-EPI)NonAf (60.0-200.0) BUN/Creatinine Ratio (12.00-20.00) Ratio Glucose (70-110) mg/dL POC Glucose (mg/dL) 154 H 218 H 181 H (75-99) mg/dL Calcium (8.7-10.3) mg/dL Magnesium (1.5-2.4) mg/dL AST (13-35) U/L ALT (8-44) U/L Alkaline Phosphatase (41-126) U/L Total Protein (6.2-8.2) g/dL Albumin (3.80-4.90) g/dL Interleukin 6 (<6.4) pg/mL 08/26/20 Range/Units 06:54 PT (9.9-11.9) sec INR (0.90-1.11) Sodium (135-145) mmol/L Chloride (96-109) mmol/L BUN (9.0-27.0) mg/dL Est GFR (CKD-EPI)NonAf (60.0-200.0) BUN/Creatinine Ratio (12.00-20.00) Ratio Glucose (70-110) mg/dL POC Glucose (mg/dL) 150 H (75-99) mg/dL Calcium (8.7-10.3) mg/dL Magnesium (1.5-2.4) mg/dL AST (13-35) U/L ALT (8-44) U/L Alkaline Phosphatase (41-126) U/L Total Protein (6.2-8.2) g/dL Albumin (3.80-4.90) g/dL Interleukin 6 (<6.4) pg/mL
[2020-08-26] MEDS: DEXTROSE 5% IN WATER 1,000 ML IV SCH ×2 (14:36→23:39)
--- NOTE | 2020-08-26 15:16 | P.PN ---
Subjective Progress Note Date: 08/26/[address] Patient initially seen by Dr. Vipin Nava. Please refer to his note for details. Reconsulted for altered mental status. Patient appears encephalopathic, laying in the bed, somewhat short of breath. Patient answers to some questions. Denies headache. Patient's INR is 2.29. Electrolytes are normal. BUN 49, creatinine 0.76. CBC with WBC 8.6, hemoglobin 9.3 with elevated MCV 101.2. Hemoglobin A1c 5.6 Ammonia <9 B12 342, folate normal TSH is mildly low 0.305. Free T4 normal 0.85. IM to address thyroid dysfunction. Objective - Vital Signs Vital signs: Vital Signs Temp 99.0 F 08/26/20 10:36 Pulse 78 08/26/20 10:36 Resp 16 08/26/20 10:36 BP 123/76 08/26/20 10:36 Pulse Ox 93 L 08/26/20 10:36 Intake & Output 08/25/20 08/26/20 08/26/20 18:59 06:59 18:59 Output Total 1025 475 Balance -1025 -475 Weight 101.5 kg Output: Urine 1025 475 Other: Voiding Method Indwelling Catheter Indwelling Catheter Indwelling Catheter # Bowel Movements 1 - Exam Patient encephalopathic, but able to tell me her name, date of and that she is in [facility]. Could not tell the current month or the year. Patient was able to name objects like thumb, straw. Patient's pupils are round and reacting. Visual mccauley could not be tested reliably because of her mental status. Her face is symmetric. Tongue protrudes the midline. On muscle strength testing patient is weak in the right arm as compared to the left. Patient denies headache. Plantars are withdrawal bilaterally. Patient moves her legs equally to plantar stimulation. No obvious seizure-like activity noted. Tone is equal. - Labs CBC & Chem 7: 08/25/20 05:51 08/26/20 05:28 Labs: Abnormal Lab Results - Last 24 Hours (Table) 08/25/20 08/25/20 08/26/20 Range/Units 17:21 21:32 05:28 PT 23.3 H (9.9-11.9) sec INR 2.29 H (0.90-1.11) Chloride (98-107) mmol/L Carbon Dioxide (22-30) mmol/L BUN (7-17) mg/dL Glucose (74-99) mg/dL POC Glucose (mg/dL) 218 H 181 H (75-99) mg/dL 08/26/20 08/26/20 08/26/20 Range/Units 05:28 06:54 11:13 PT (9.9-11.9) sec INR (0.90-1.11) Chloride 111 H (98-107) mmol/L Carbon Dioxide 31 H (22-30) mmol/L BUN 49 H (7-17) mg/dL Glucose 159 H (74-99) mg/dL POC Glucose (mg/dL) 150 H 140 H (75-99) mg/dL Assessment and Plan Assessment: * Recent history of left intracerebral hemorrhage, with left-sided frontal subdural hematoma status post craniotomy at [facility], discharged on 08/13/2020. Patient has mild residual right hemiparesis. * Altered mental status, likely due to toxic metabolic encephalopathy. * Recent history of Covid pneumonia. * Atrial fibrillation, currently on warfarin. * Anemia * Hypertension * Hypothyroidism * Hyperlipidemia Plan: * Patient's altered mental status is likely due to toxic metabolic encephalopathy. * Patient also has history of recent left-sided intracerebral hemorrhage with subdural hematoma requiring craniotomy. Patient's altered mentation could also be related to effect of recent craniotomy, CVA, recent Covid and other metabolic dysfunctions as mentioned above. * No evidence of seizures. No indication for EEG. Patient currently on Keppra 500 mg every 12 hours. * Patient's encephalopathy hopefully will improve over time. * No other workup indicated.
[2020-08-26 17:09] LABS: Glucose,Whole Blood 118 mg/dL (75-99)
[2020-08-26] MEDS ORDERED: WARFARIN 1 MG TAB PO ONE (18:00)
[2020-08-26] MEDS: QUEtiapine 25 MG TAB PO SCH (20:57)
[2020-08-26] MEDS: MELATONIN 5 MG TABLET PO SCH (20:58)
[2020-08-26 21:22] LABS: Glucose,Whole Blood 197 mg/dL (75-99)
[2020-08-27] MEDS: LEVOTHYROXINE 75 MCG TAB PO SCH (05:10)
[2020-08-27] MEDS: methylPREDNISolone SOD SUCCI 40 MG/ML 1 ML VIAL IV SCH ×3 (05:11→17:35)
[2020-08-27 06:55] LABS: Basophils % (A) 0 %; Eosinophils % (A) 0 %; HCT 24.8 % (34.0-46.0); HGB 8.3 gm/dL (11.4-16.0); Lymphocytes # (A) 0.5 k/uL (1.0-4.8); Lymphocytes % (A) 6 %; MCH 33.7 pg (25.0-35.0); MCHC 33.6 g/dL (31.0-37.0); MCV 100.4 fL (80.0-100.0); Macrocytosis Slight; Mean Platelet Volume 7.6; Monocytes # (A) 0.3 k/uL (0-1.0); Monocytes % (A) 5 %; Neutrophils # (A) 6.2 k/uL (1.3-7.7); Neutrophils % (A) 87 %; Platelet Count 282 k/uL (150-450); RBC 2.47 m/uL (3.80-5.40); RDW 15.5 % (11.5-15.5); WBC 7.2 k/uL (3.8-10.6)
[2020-08-27 07:11] LABS: D-Dimer 0.55 mg/L FEU (<0.60); INR 2.6 (<1.2); Prothrombin Time 25.2 sec (9.0-12.0)
[2020-08-27 07:15] LABS: Glucose,Whole Blood 136 mg/dL (75-99)
--- NOTE | 2020-08-27 07:57 | XR ---
EXAMINATION TYPE: XR chest 1V DATE OF EXAM: 08/27/2020 COMPARISON: 08/23/2020 HISTORY: 64-year-old female COVID 19, shortness of breath TECHNIQUE: Single frontal view of the chest is obtained. FINDINGS: Right PICC tip at the cavoatrial junction. Heart is enlarged. Diffuse bilateral airspace opacities. N o sizable effusion. IMPRESSION: Continued diffuse bilateral airspace disease. Cardiomegaly also redemonstrated.
[2020-08-27] MEDS: ZINC SULFATE 220 MG CAP PO SCH (08:18)
[2020-08-27] MEDS: FAMOTIDINE 20 MG/2 ML VIAL IV SCH ×2 (08:18→21:07)
[2020-08-27] MEDS: CHOLECALCIFEROL 1,000 UNIT TAB PO SCH (08:18)
[2020-08-27] MEDS: amLODIPine 5 MG TAB PO SCH (08:18)
[2020-08-27] MEDS: levETIRAcetam 500 MG TAB PO SCH ×2 (08:19→21:08)
[2020-08-27] MEDS: CYANOCOBALAMIN 500 MCG TAB PO SCH (08:19)
[2020-08-27] MEDS: METOPROLOL TARTRATE 50 MG TAB PO SCH ×2 (08:19→21:07)
[2020-08-27] MEDS: VENLAFAXINE HCL ER 150 MG CAP PO SCH (08:19)
[2020-08-27] MEDS: INSULIN DETEMIR (LEVEMIR) 100 UNIT/ML SYR SQ SCH ×2 (08:19→21:07)
[2020-08-27] MEDS: AMIODARONE 200 MG TAB PO SCH ×2 (08:19→21:07)
[2020-08-27] MEDS: ASCORBIC ACID 500 MG TAB PO SCH (08:19)
[2020-08-27] MEDS: THIAMINE 100 MG TAB PO SCH (08:19)
[2020-08-27] MEDS: INSULIN ASPART (NovoLOG) 100 UNIT/ML VIAL SQ SCH ×4 (08:20→21:06)
[2020-08-27] MEDS: DOCUSATE 100 MG CAP PO SCH (08:32)
[2020-08-27 10:22] LABS: African American GFR (CKD) 104.6 (60.0-200.0); Albumin 3.2 g/dL (3.80-4.90); Anion Gap 2.3 mmol/L (4.00-12.00); BUN/Creat Ratio 58.57 Ratio (12.00-20.00); C Reactive Protein 0.9 mg/dL (0.0-0.8); Calcium 8.5 mg/dL (8.7-10.3); Carbon Dioxide 33.7 mmol/L (21.6-31.8); Globulin 1.6 g/dL (1.6-3.3); Non-African American GFR(CKD) 90.3 (60.0-200.0); Potassium 4.8 mmol/L (3.5-5.5); Total Bilirubin 0.4 mg/dL (0.3-1.2); Total Protein 4.8 g/dL (6.2-8.2)
[2020-08-27 11:17] LABS: Glucose,Whole Blood 166 mg/dL (75-99)
--- NOTE | 2020-08-27 12:57 | P.PN ---
Subjective Progress Note Date: 08/27/20 HISTORY OF PRESENT ILLNESS Ms. Sutherland is a 64 years old female patient of Dr. Siu with past medical history of coronary artery disease, hypertension, history of DVT and pul monary embolism in 2002, fibromyalgia, asthma who presented to the hospital with worsening shortness of breath associated with change in mental status for the past 24 hours. Patient was in [facility] for subdural hemorrhage associated with meningioma in the left frontal lobe. Patient underwent left frontal craniotomy and was discharged on 08/13 on seizure precaution medication and pain medication. Patient's daughter is an RN who checked her oxygen at home which was saturating at 38%. Patient was brought to the hospital by EMS as patient was found unresponsive with her oxygen in the 40s and was placed on a BiPAP. Patient is unable to provide any history as she Is confused. Called patient's who stated that patient was doing well post discharge until last night when she became short of breath and confused. Patient did have acute stroke from the subdural hemorrhage causing right arm and right leg weakness associated with a phase ER. Patient was in the hospital for 6 weeks and recovered from both right upper and lower extremity weakness and a phasia. Patient was smoking at home post discharge. She was evaluated by her daughter who is an RN who insisted on calling EMS as she did not appear well.On evaluation in the ER patient was found to have bilateral groundglass opacities concerning for call with pneumonia. Vital suggested temp of 97.9 pulse 81 blood pressure 122/78 respiratory rate of 20. Call with 19 was positive. WBC 5.8 hemoglobin 10.4. ABG was obtained with a pO2 of 55 pCO2 of 44 . Patient's sodium is 146 chloride 117 BUN 48 creatinine 1.01 glucose 110 AST 74 8079 magnesium 2.5 proBNP 1560 LDH 2556 troponin negative 1 CRP 220. INR is jose vated at 2.6. Pulmonary consult was placed. Patient placed on Solu-Medrol 60 every 6, zinc sulfide 220 vitamin C 1000 mg daily. EKG was normal sinus rhythm with no ST or segment depression or elevation. 1/3 patient assessed in ICU currently on BiPAP. Patient is oriented 2. Patient was not able to tolerate being off BiPAP for even a few minutes to take her medications. Patient is currently on 100% FiO2 on BiPAP saturating at 91- 92% vitals otherwise stable temp of 98.8 pulse 75 respiratory rate 27 blood pressure 129/53. Patient has a drop of hemoglobin from 10.4-8 today with MCV 103. INR is 1.8 subtherapeutic, elevated APTT 50 in origin and d-dimer 0.97. PCO2 is 46 pO2 71 bicarb 28 with a pH of 7.37, sodium 146 chloride 1:15, BUN 48 creatinine 0.87 glucose 125. Alkaline phosphatase has increased to 215 from 1:15, AST increased from 7 to 151 ALT increased from 79 to 201. Ultrasound abdomen ordered to evaluate for liver and gallbladder. 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 Patient is unable to take oral medication will switch patient's medication to IV today 08/18: Patient remains in the intensive care unit on BiPAP. She maintains a pulse ox of 91-96% but quickly drops if BiPAP is removed. She's been afebrile, heart rate 73, blood pressure 146/75. Repeat blood work reveals WBC 6.3, hemoglobin 10, platelet count 173. INR is 3.1. Fibrinogen 572, d-dimer 1.09. Sodium 152, potassium 4.4, chloride 117, CO2 31, BUN 48 and creatinine 0.89. TSH 0.305. ProBNP 1290. C-reactive protein 87.9. CK 22, LDH 2721. Blood sugars running in the 120s and 130s. Repeat chest x-ray reveals continued bilateral airspace disease. Patient has been seen by neurology with recommendations to continue Keppra 500 mg twice daily for seizure prophylaxis. Records from [facility] to be obtained. Patient was started on desmopressin 0.05 mg 1 tablet twice a day for central diabetes insipidus. Vitamin B-12 and folate levels ordered. TSH and ammonia level. Thiamine was started. Patient was also seen by nephrology for hypernatremia and started on normal saline at 50 mL per hour for now. 08/19: Patient remains in the intensive care unit oxygen is down to 80% on BiPAP with pulse ox running between 89 and 92. She has been afebrile, heart rate 73, blood pressure 101/59. Pulse ox drops if BiPAP is removed. We will start a soft diet as she is stating she is hungry. Midline was placed yesterday. Repe at blood work reveals WBC 6.5, hemoglobin 9.2, platelet count 161. D-dimer 2.63, fibrinogen 503, INR 4.1. Creatinine 0.81. Blood sugars run between 146 and 225. Repeat chest x-ray reveals slight improvement of diffuse infiltrate can be compatible with atypical pneumonia. Patient received DDAVP yesterday. She is currently on D5W at 60 mL per hour. She remains on Solu-Medrol 60 mg IV every 6 hours. 08/20: Patient remains in intensive care unit. She is on BiPAP and desats quickly if this is removed down to 75. She is confused and has pulled off her BiPAP. She is able to a very little today due to desaturation. Daughter has been updated during the night of the patient's status. She has been afebrile, heart rate 80, respiratory rate 26-44, blood pressure 169/88, pulse ox 92% on 70% FiO2 on BiPAP. Repeat blood work reveals Gaby BC 6.3, hemoglobin 9.6, platelet count 158. Lymphocytes are 0.7. BUN 36 creatinine 0.72. Blood sugars running between 130 348. Ferritin 2476. AST 92, ALT 198, alkaline phosphatase 294. LDH 2668. CK 0.1, C-reactive protein 22.7. Urine culture is showing gram- negative bacilli. Blood culture no growth after 72 hours 2 specimens. Repeat chest x-ray reveals cardiomegaly with bilateral multifocal acute infiltrates consistent with COVID-19. Patient is continued on IV fluids of D5W at 60 mL per hour and change today to half-normal saline. Patient received 1 dose of IV Lasix this morning. Desmopressin was discontinued as central diabetes insipidus was ruled out. 08/21: The patient is more alert today. She is now on high flow AirVo with FiO2 of 85%. Patient was able to tolerate chopped diet as morning. She was started yesterday on TPN. She is complaining of right shoulder pain which is of chronic nature and [place] resumed as well as lidocaine cream started. Patient has been afebrile, heart rate 82, blood pressure 156/75. Respiratory rate 24. Pulse ox 93% on FiO2 of 85%. hall monitor is a sinus rhythm. Repeat chest x-ray reveals stable bilateral lung infiltrates. Repeat blood work reveals WBC 7.4, hemoglobin 9.5. Creatinine 0.73. Blood sugars between 148 and 165. Liver function tests remain elevated with total bilirubin 1, AST 78, ALT 233, alkaline phosphatase 286. LDH is 2566. CK less than 20. C-reactive protein 10.8. Urine culture finalized with E. coli. Blood cultures showing no growth. 08/22: Patient remains in the intensive care unit. Oxygen is down to 70% with pulse ox of 95%. Heart rate is 140 and patient went into atrial fibrillation currently transitioned to oral amiodarone and Cardizem drip. TPN was started and patient ate 50% of her breakfast this morning. She has been afebrile. Blood pressure 147/83. Repeat blood work reveals WBC 8, hemoglobin 9.4. Blood sugars running between 228 and 300. Electrolytes normal, creatinine 0.72. Phosphorus 3.1, magnesium 2.4. Ferritin 2011, total bilirubin 0.6, AST 75, ALT 288, alkaline phosphatase 282. LDH 2469. CK less than 20. 08/23: Patient remains in the intensive care unit but has progressed very well over the past 24 hours and is scheduled for transfer out to the [facility] floor. Repeat chest x-ray reveals stable diffuse bilateral infiltrates. Dr. English has recommended continued treatment for blood pressure and his blood pressure is stable, clonidine patch can be discontinued. Patient continued on beta josh and amiodarone for another 72 hours and then amiodarone dose can be decreased. The patient can be switched back to oral Coumadin. She has been afebrile, heart rate 69, blood pressure 133/71, pulse ox 95% on high flow nasal cannula 15 L. WBC 9.0, hemoglobin 8.2. Electrolytes normal, BUN 42 and creatinine 0.77. Blood sugars running between 179 and 291. LDH 1980. Total bilirubin 0.5. AST 37, ALT 211, alkaline phosphatase 258. 08/24: Patient continues to have cough. Patient has been afebrile, heart rate 80, blood pressure 138/79, pulse ox 94-97% on 15 L high flow nasal cannula. INR is 1.2. Patient was started on Coumadin last night of 5 mg, pharmacy dosing. Blood sugar 129 244.She is very much looking forward to getting home eventually. She is agreeable to subacute rehab and PT has recommended subacute rehab. We will plan for his jewelry store manager/administrator social welfare following up tomorrow. 08/25: Patient's pain status continues to improve. She has been afebrile, heart rate 76, blood pressure 163/74, pulse ox is 98% on 10 L high flow nasal cannula. WBC 8.6, hemoglobin 9.3, platelet count 226. Patient denies any abdominal pain. She is tolerating diet. She is continued on IV Solu-Medrol. INR today 1.7 and pharmacy is dosing Coumadin. Sodium 147, potassium 5.4, chloride 113, CO2 27.5. BUN 55 and creatinine 1. Blood sugars run between 137-188. Liver function tests remain elevated with AST 51, ALT 342, alkaline phosphatase 265. Nephrology has discontinued potassium supplement and considering D5W tomorrow sodium remains elevated. PT and OT to start working with the patient is a need for subacute rehab. 08/26: She has been afebrile, heart rate 75, blood pressure 106/76, pulse ox 90- 96% on 8 L high flow nasal cannula. Blood sugars running between 150 and 218. Repeat INR 2.29 and Lovenox will be discontinued. Patient continues to complain of weakness. She denies having any diarrhea. Patient is awake and alert. No mental status changes. workshop manager is in process of making discharge plans with patient's . 08/27: Patient has been afebrile, heart rate 78, blood pressure 133/75, pulse ox 92% on 8 L nasal cannula. Patient states that she is feeling so-so but better since she is bit on the MedSurg floor. The patient will update her to call social work regarding discharge planning. INR is 2.6. W BC 7.2, hemoglobin 8.3, platelet count 282. Blood sugars running between 118 197. Sodium 147, potassium 4.8. BUN 41 creatinine 0.7. ALT 189, alkaline phosphat ase 192, LDH 541, C-reactive protein 0.9. D-dimer 0.55. REVIEW OF SYSTEMS Constitutional: No fever, no chills, no night sweats. No weight change. Reports continued weakness, reports fatigue, reports daytime sleepiness. EENT: No headache. No blurred vision or double vision, no loss of vision. No loss of Hearing, no ringing in the ears, no dizziness. No nasal drainage or congestion. No epistaxis. No sore throat. Lungs: Reports continued shortness of breath improving, reports cough, no sputum production. No wheezing. Cardiovascular: No chest pain, no lower extremity edema. No palpitations. No paroxysmal nocturnal dyspnea. No orthopnea. No lightheadedness or dizziness. No syncopal episodes. Abdominal: No abdominal pain. No nausea, vomiting. No diarrhea. No constipation. No bloody or tarry stools. Reports increased appetite. Genitourinary: No dysuria, increased frequency, urgency. No urinary retention. Moses catheter in place. Musculoskeletal: No myalgias. No muscle weakness, no gait dysfunction, no frequent falls. No back pain. No neck pain. Integumentary: No wounds, no lesions. No rash or pruritus. No unusual bruising. Neurologic: No aphasia. No facial droop. No change in mentation. No head injury. No headache. No paralysis. No paresthesia. Psychiatric: No depression. No anxiety. Endocrine: No abnormal blood sugars. No weight change. PHYSICAL EXAMINATION Gen: This is a 63-year-old female. She is seen today on the [facility] floor. HEENT: Head is atraumatic, normocephalic. Pupils equal, round. Sclerae is anicteric. NECK: Supple. No JVD. No lymphadenopathy. No thyromegaly. LUNGS: Scattered rhonchi. No wheezes. Mild intercostal retractions. HEART: Regular rate and rhythm. 3/6 systolic murmur. ABDOMEN: Soft. Bowel sounds are present. No masses. No tenderness. Moses verito ter in place. EXTREMITIES: No pedal edema. No calf tenderness. NEUROLOGICAL: Patient is awake, alert and oriented 3. ASSESSMENT AND PLAN 1. Acute hypoxic respiratory failure secondary to COVID-19 Pneumonia and COPD exacerbation. Consult with pulmonary medicine appreciated. Continue oxygen therapy. 2. COVID-19 pneumonia. Continue vitamin C, vitamin D, zinc, Solu-Medrol decreased to 40 mg IV every 6 hours, Lovenox. 3. COPD exacerbation. Continue Solu-Medrol 60 mg IV every 6 hours, pulmonary consult appreciated. 4. Acute hemorrhagic stroke with acute left subdural hemorrhage with benign tumor status post left frontal craniotomy. Patient was discharged on August 13 from [facility]/rehab facility. Continue Keppra and steroids. Consult with neurology appreciated. 5. Acute toxic metabolic encephalopathy secondary to Covid 19, hyponatremia. Neurology consult appreciated. Continue Keppra for prophylaxis seizure activity. Hold Lyrica. [place] resumed for shoulder pain. IV Keppra will be transitioned to oral. 6. Central diabetes insipidus ruled out. 7. History of pulmonary embolism and DVT. Continue Lovenox 80 mg subcu every 12 hours. Resume Coumadin 5 mg tonight. Monitor INR daily. 8. History of coronary artery disease. Continue Lopressor 9. Hypertension. Continue Lopressor 5 mg IV push every 6 hours as needed, hydralazine 10 mg IV push every 6 hours as needed 10. Hypothyroidism. Patient will be resumed on levothyroxine 25 g IV daily. 11. Hyperlipidemia. Hold pravastatin. 12. Recurrent depression. Continue venlafaxine 150 mg oral daily. Seroquel 25 mg at bedtime. 13. GI prophylaxis. Pepcid 20 mg IV every 12 hours. 14. DVT prophylaxis. Lovenox subcu. 15. UTI. Patient started on Rocephin. 16. Chronic right shoulder pain. [place] and lidocaine cream. 17. Severe protein calorie malnutrition. TPN has been discontinued. Continue oral diet. 18. Hyperglycemia secondary to steroids. Hemoglobin A1c is 5.6. Levemir increased to 12 units twice daily, continue NovoLog scale before meals and at bedtime. 19. Hypernatremia. Nephrology is following. DISCHARGE PLAN Subacute rehab possibly on Tuesday. Impression and plan of care have been directed as dictated by the signing physician. Karyn Tamayo nurse practitioner acting as scribe for signing physician. Objective - Vital Signs Vital signs: Vital Signs Temp 98 F 08/27/20 11:00 Pulse 74 08/27/20 11:00 Resp 17 08/27/20 11:00 BP 144/79 08/27/20 11:00 Pulse Ox 91 L 08/27/20 11:00 Intake & Output 08/26/20 08/27/20 08/27/20 18:59 06:59 18:59 Intake Total 240 Output Total 650 700 Balance -650 -460 Weight 100.9 kg Intake: Oral 240 Output: Urine 650 700 Other: Voiding Method Indwelling Catheter Indwelling Catheter Indwelling Catheter # Bowel Movements 1 - Labs CBC & Chem 7: 08/27/20 06:20 08/27/20 06:20 Labs: Abnormal Lab Results - Last 24 Hours (Table) 01/08/0408/26/20 08/27/20 Range/Units 17:05 21:20 06:20 RBC (3.80-5.40) m/uL Hgb (11.4-16.0) gm/dL Hct (34.0-46.0) % MCV (80.0-100.0) fL Lymphocytes # (1.0-4.8) k/uL PT 25.2 H (9.0-12.0) sec INR 2.6 H (<1.2) Sodium (135-145) mmol/L Chloride (96-109) mmol/L Carbon Dioxide (21.6-31.8) mmol/L Anion Gap (4.00-12.00) mmol/L BUN (9.0-27.0) mg/dL BUN/Creatinine Ratio (12.00-20.00) Ratio Glucose (70-110) mg/dL POC Glucose (mg/dL) 118 H 197 H (75-99) mg/dL Calcium (8.7-10.3) mg/dL ALT (8-44) U/L Alkaline Phosphatase (41-126) U/L Lactate Dehydrogenase (120-246) U/L C-Reactive Protein (0.0-0.8) mg/dL Total Protein (6.2-8.2) g/dL Albumin (3.80-4.90) g/dL 08/27/20 08/27/20 08/27/20 Range/Units 06:20 06:20 07:14 RBC 2.47 L (3.80-5.40) m/uL Hgb 8.3 L (11.4-16.0) gm/dL Hct 24.8 L (34.0-46.0) % MCV 100.4 H (80.0-100.0) fL Lymphocytes # 0.5 L (1.0-4.8) k/uL PT (9.0-12.0) sec INR (<1.2) Sodium 147 H (135-145) mmol/L Chloride 111 H (96-109) mmol/L Carbon Dioxide 33.7 H (21.6-31.8) mmol/L Anion Gap 2.30 L (4.00-12.00) mmol/L BUN 41.0 H (9.0-27.0) mg/dL BUN/Creatinine Ratio 58.57 H (12.00-20.00) Ratio Glucose 132 H (70-110) mg/dL POC Glucose (mg/dL) 136 H (75-99) mg/dL Calcium 8.5 L (8.7-10.3) mg/dL ALT 189 H (8-44) U/L Alkaline Phosphatase 192 H (41-126) U/L Lactate Dehydrogenase 541 H (120-246) U/L C-Reactive Protein 0.9 H (0.0-0.8) mg/dL Total Protein 4.8 L (6.2-8.2) g/dL Albumin 3.20 L (3.80-4.90) g/dL 08/27/20 Range/Units 11:16 RBC (3.80-5.40) m/uL Hgb (11.4-16.0) gm/dL Hct (34.0-46.0) % MCV (80.0-100.0) fL Lymphocytes # (1.0-4.8) k/uL PT (9.0-12.0) sec INR (<1.2) Sodium (135-145) mmol/L Chloride (96-109) mmol/L Carbon Dioxide (21.6-31.8) mmol/L Anion Gap (4.00-12.00) mmol/L BUN (9.0-27.0) mg/dL BUN/Creatinine Ratio (12.00-20.00) Ratio Glucose (70-110) mg/dL POC Glucose (mg/dL) 166 H (75-99) mg/dL Calcium (8.7-10.3) mg/dL ALT (8-44) U/L Alkaline Phosphatase (41-126) U/L Lactate Dehydrogenase (120-246) U/L C-Reactive Protein (0.0-0.8) mg/dL Total Protein (6.2-8.2) g/dL Albumin (3.80-4.90) g/dL
--- NOTE | 2020-08-27 15:21 | P.PN ---
Subjective Progress Note Date: 08/27/20 Principal diagnosis: Acute hypoxic respiratory failure secondary to CoVID 19 pneumonitis The patient is seen today 08/27/2020 in follow-up on the regular medical floor. She was admitted for acute hypoxic respiratory failure secondary to CoVID 19 pneumonitis. She was outside the window for Remdesivir. She did receive 2 units of convalescent plasma. She remains awake and alert in no acute distress. Confused to place. Calling out for her father. Currently requiring 8 L high flow nasal cannula to maintain O2 saturations in the 90s. Chest x-ray continues to show diffuse bilateral airspace disease. White count 7.2. Hemoglobin 8.3. Lymphocytes 0.5. INR 2.6. D-dimer 0.55. Sodium 147. Potassium 4.8. Creatinine 0.7. LDH 541. Remains on IV Solu-Medrol, Pepcid, vitamin supplements. Anticoagulated with warfarin. Objective - Vital Signs Vital signs: Vital Signs Temp 98 F 08/27/20 11:00 Pulse 74 08/27/20 11:00 Resp 17 08/27/20 11:00 BP 144/79 08/27/20 11:00 Pulse Ox 91 L 08/27/20 11:00 Intake & Output 08/26/20 08/27/20 08/27/20 18:59 06:59 18:59 Intake Total 240 Output Total 650 700 Balance -650 -460 Weight 100.9 kg Intake: Oral 240 Output: Urine 650 700 Other: Voiding Method Indwelling Catheter Indwelling Catheter Indwelling Catheter # Bowel Movements 1 - Exam Gen: This is a 63-year-old female patient on 8 L high flow nasal cannula. O2 saturation is in the 90s. HEENT: Head is atraumatic, normocephalic. Pupils equal, round. Sclerae is anicteric. NECK: Supple. No JVD. No lymphadenopathy. No thyromegaly. LUNGS: Scattered rhonchi. No wheezes. Mild intercostal retractions. HEART: Regular rate and rhythm. 3/6 systolic murmur. ABDOMEN: Soft. Bowel sounds are present. No masses. No tenderness. Moses catheter in place. EXTREMITIES: No pedal edema. No calf tenderness. NEUROLOGICAL: Patient is awake, alert and oriented x3. Cranial nerves 2 through 12 are grossly intact. Psychiatric: Normal mood, affect and normal mental status examination. Skin: No rashes - Labs CBC & Chem 7: 08/27/20 06:20 08/27/20 06:20 Labs: Abnormal Lab Results - Last 24 Hours (Table) 08/26/20 08/26/20 08/27/20 Range/Units 17:05 21:20 06:20 RBC (3.80-5.40) m/uL Hgb (11.4-16.0) gm/dL Hct (34.0-46.0) % MCV (80.0-100.0) fL Lymphocytes # (1.0-4.8) k/uL PT 25.2 H (9.0-12.0) sec INR 2.6 H (<1.2) Sodium (135-145) mmol/L Chloride (96-109) mmol/L Carbon Dioxide (21.6-31.8) mmol/L Anion Gap (4.00-12.00) mmol/L BUN (9.0-27.0) mg/dL BUN/Creatinine Ratio (12.00-20.00) Ratio Glucose (70-110) mg/dL POC Glucose (mg/dL) 118 H 197 H (75-99) mg/dL Calcium (8.7-10.3) mg/dL ALT (8-44) U/L Alkaline Phosphatase (41-126) U/L Lactate Dehydrogenase (120-246) U/L C-Reactive Protein (0.0-0.8) mg/dL Total Protein (6.2-8.2) g/dL Albumin (3.80-4.90) g/dL 08/27/20 08/27/20 08/27/20 Range/Units 06:20 06:20 07:14 RBC 2.47 L (3.80-5.40) m/uL Hgb 8.3 L (11.4-16.0) gm/dL Hct 24.8 L (34.0-46.0) % MCV 100.4 H (80.0-100.0) fL Lymphocytes # 0.5 L (1.0-4.8) k/uL PT (9.0-12.0) sec INR (<1.2) Sodium 147 H (135-145) mmol/L Chloride 111 H (96-109) mmol/L Carbon Dioxide 33.7 H (21.6-31.8) mmol/L Anion Gap 2.30 L (4.00-12.00) mmol/L BUN 41.0 H (9.0-27.0) mg/dL BUN/Creatinine Ratio 58.57 H (12.00-20.00) Ratio Glucose 132 H (70-110) mg/dL POC Glucose (mg/dL) 136 H (75-99) mg/dL Calcium 8.5 L (8.7-10.3) mg/dL ALT 189 H (8-44) U/L Alkaline Phosphatase 192 H (41-126) U/L Lactate Dehydrogenase 541 H (120-246) U/L C-Reactive Protein 0.9 H (0.0-0.8) mg/dL Total Protein 4.8 L (6.2-8.2) g/dL Albumin 3.20 L (3.80-4.90) g/dL 08/27/20 Range/Units 11:16 RBC (3.80-5.40) m/uL Hgb (11.4-16.0) gm/dL Hct (34.0-46.0) % MCV (80.0-100.0) fL Lymphocytes # (1.0-4.8) k/uL PT (9.0-12.0) sec INR (<1.2) Sodium (135-145) mmol/L Chloride (96-109) mmol/L Carbon Dioxide (21.6-31.8) mmol/L Anion Gap (4.00-12.00) mmol/L BUN (9.0-27.0) mg/dL BUN/Creatinine Ratio (12.00-20.00) Ratio Glucose (70-110) mg/dL POC Glucose (mg/dL) 166 H (75-99) mg/dL Calcium (8.7-10.3) mg/dL ALT (8-44) U/L Alkaline Phosphatase (41-126) U/L Lactate Dehydrogenase (120-246) U/L C-Reactive Protein (0.0-0.8) mg/dL Total Protein (6.2-8.2) g/dL Albumin (3.80-4.90) g/dL Assessment and Plan Assessment: 1 Acute hypoxic respiratory failure secondary to CoVID 19 pneumonia. Outside the window for Remdesivir. Did receive 2 units of convalescent plasma 2 Recent history of hemorrhagic stroke with left subdural hematoma status post left frontal craniotomy 3 Acute toxic metabolic encephalopathy 4 History of pulmonary embolism and DVT. On Lovenox. 5 History of underlying coronary artery disease. 6 Benign essential hypertension. 7 Hypothyroidism. 8 Dyslipidemia. 9 Paroxysmal atrial fibrillation, patient is now on Cardizem, and beta blockers. Presently in sinus rhythm. Anticoagulated with warfarin. Plan: The patient was seen and evaluated by Dr. Nava Chest x-ray and labs reviewed Continue the current treatment plan Anticoagulated with warfarin Titrate down the FiO2 as tolerated We'll continue to follow I, the cosigning physician, performed a history & physical examination of the patient. Lungs sounds with bilateral scattered rhonchi. Maintaining good O2 saturations in the 90s on 8 L high flow nasal cannula. I discussed the assessment and plan of care with my nurse practitioner, Janneth Andrew. I attest to the above note as dictated by her.
[2020-08-27 16:38] LABS: Glucose,Whole Blood 165 mg/dL (75-99)
[2020-08-27] MEDS ORDERED: WARFARIN 1.5 MG TAB PO ONE (18:00)
[2020-08-27 20:13] LABS: Glucose,Whole Blood 239 mg/dL (75-99)
[2020-08-27] MEDS: MELATONIN 5 MG TABLET PO SCH (21:07)
[2020-08-27] MEDS: QUEtiapine 25 MG TAB PO SCH (21:07)
[2020-08-27] MEDS: HYDROcodone/APAP 5-325MG 1 EACH TAB PO PRN (21:08)
[2020-08-28] MEDS: methylPREDNISolone SOD SUCCI 40 MG/ML 1 ML VIAL IV SCH ×5 (00:29→23:54)
[2020-08-28] MEDS: LEVOTHYROXINE 75 MCG TAB PO SCH (05:38)
[2020-08-28] MEDS: DEXTROSE 5% IN WATER 1,000 ML IV SCH ×2 (06:44→23:53)
[2020-08-28 06:58] LABS: HCT 25.5 % (34.0-46.0); HGB 8.4 gm/dL (11.4-16.0); MCH 33.4 pg (25.0-35.0); MCHC 33.1 g/dL (31.0-37.0); MCV 101.1 fL (80.0-100.0); Macrocytosis Slight; Mean Platelet Volume 7.6; Platelet Count 296 k/uL (150-450); RBC 2.52 m/uL (3.80-5.40); RDW 15.9 % (11.5-15.5); WBC 9.4 k/uL (3.8-10.6)
[2020-08-28 07:06] LABS: Glucose,Whole Blood 132 mg/dL (75-99)
[2020-08-28] MEDS: INSULIN DETEMIR (LEVEMIR) 100 UNIT/ML SYR SQ SCH ×2 (08:18→20:52)
[2020-08-28] MEDS: INSULIN ASPART (NovoLOG) 100 UNIT/ML VIAL SQ SCH ×4 (08:19→20:51)
[2020-08-28] MEDS: amLODIPine 5 MG TAB PO SCH ×2 (08:20→20:31)
[2020-08-28] MEDS: AMIODARONE 200 MG TAB PO SCH ×2 (08:20→20:31)
[2020-08-28] MEDS: FAMOTIDINE 20 MG/2 ML VIAL IV SCH (08:21)
[2020-08-28] MEDS: CHOLECALCIFEROL 1,000 UNIT TAB PO SCH (08:21)
[2020-08-28] MEDS: CYANOCOBALAMIN 500 MCG TAB PO SCH (08:21)
[2020-08-28] MEDS: ASCORBIC ACID 500 MG TAB PO SCH (08:21)
[2020-08-28] MEDS: VENLAFAXINE HCL ER 150 MG CAP PO SCH (08:21)
[2020-08-28] MEDS: DOCUSATE 100 MG CAP PO SCH (08:21)
[2020-08-28] MEDS: levETIRAcetam 500 MG TAB PO SCH ×2 (08:21→20:31)
[2020-08-28] MEDS: ZINC SULFATE 220 MG CAP PO SCH (08:21)
[2020-08-28] MEDS: METOPROLOL TARTRATE 50 MG TAB PO SCH ×2 (08:21→20:31)
[2020-08-28] MEDS: THIAMINE 100 MG TAB PO SCH (08:21)
[2020-08-28 10:02] LABS: INR 2.37 (0.90-1.11)
[2020-08-28 10:47] LABS: Albumin 3.4 g/dL (3.80-4.90); Albumin/Globulin Ratio 1.89 (1.60-3.17); Anion Gap 8.6 mmol/L (4.00-12.00); Calcium 8.8 mg/dL (8.7-10.3); Carbon Dioxide 27.4 mmol/L (21.6-31.8); Globulin 1.8 g/dL (1.6-3.3); Non-African American GFR(CKD) 76.8 (60.0-200.0); Total Bilirubin 0.4 mg/dL (0.2-1.2); Total Protein 5.2 g/dL (6.2-8.2)
[2020-08-28 11:19] LABS: Glucose,Whole Blood 213 mg/dL (75-99)
--- NOTE | 2020-08-28 14:47 | P.PN ---
Subjective Progress Note Date: 08/28/20 HISTORY OF PRESENT ILLNESS Ms. Sutherland is a 64 years old female patient of Dr. Siu with past medical history of coronary artery disease, hypertension, history of DVT and pul monary embolism in 2002, fibromyalgia, asthma who presented to the hospital with worsening shortness of breath associated with change in mental status for the past 24 hours. Patient was in [facility] for subdural hemorrhage associated with meningioma in the left frontal lobe. Patient underwent left frontal craniotomy and was discharged on 08/13 on seizure precaution medication and pain medication. Patient's daughter is an RN who checked her oxygen at home which was saturating at 38%. Patient was brought to the hospital by EMS as patient was found unresponsive with her oxygen in the 40s and was placed on a BiPAP. Patient is unable to provide any history as she Is confused. Called patient's who stated that patient was doing well post discharge until last night when she became short of breath and confused. Patient did have acute stroke from the subdural hemorrhage causing right arm and right leg weakness associated with a phase ER. Patient was in the hospital for 6 weeks and recovered from both right upper and lower extremity weakness and a phasia. Patient was smoking at home post discharge. She was evaluated by her daughter who is an RN who insisted on calling EMS as she did not appear well.On evaluation in the ER patient was found to have bilateral groundglass opacities concerning for call with pneumonia. Vital suggested temp of 97.9 pulse 81 blood pressure 122/78 respiratory rate of 20. Call with 19 was positive. WBC 5.8 hemoglobin 10.4. ABG was obtained with a pO2 of 55 pCO2 of 44 . Patient's sodium is 146 chloride 117 BUN 48 creatinine 1.01 glucose 110 AST 74 8079 magnesium 2.5 proBNP 1560 LDH 2556 troponin negative 1 CRP 220. INR is jose vated at 2.6. Pulmonary consult was placed. Patient placed on Solu-Medrol 60 every 6, zinc sulfide 220 vitamin C 1000 mg daily. EKG was normal sinus rhythm with no ST or segment depression or elevation. 1/3 patient assessed in ICU currently on BiPAP. Patient is oriented 2. Patient was not able to tolerate being off BiPAP for even a few minutes to take her medications. Patient is currently on 100% FiO2 on BiPAP saturating at 91- 92% vitals otherwise stable temp of 98.8 pulse 75 respiratory rate 27 blood pressure 129/53. Patient has a drop of hemoglobin from 10.4-8 today with MCV 103. INR is 1.8 subtherapeutic, elevated APTT 50 in origin and d-dimer 0.97. PCO2 is 46 pO2 71 bicarb 28 with a pH of 7.37, sodium 146 chloride 1:15, BUN 48 creatinine 0.87 glucose 125. Alkaline phosphatase has increased to 215 from 1:15, AST increased from 7 to 151 ALT increased from 79 to 201. Ultrasound abdomen ordered to evaluate for liver and gallbladder. 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 Patient is unable to take oral medication will switch patient's medication to IV today 08/18: Patient remains in the intensive care unit on BiPAP. She maintains a pulse ox of 91-96% but quickly drops if BiPAP is removed. She's been afebrile, heart rate 73, blood pressure 146/75. Repeat blood work reveals WBC 6.3, hemoglobin 10, platelet count 173. INR is 3.1. Fibrinogen 572, d-dimer 1.09. Sodium 152, potassium 4.4, chloride 117, CO2 31, BUN 48 and creatinine 0.89. TSH 0.305. ProBNP 1290. C-reactive protein 87.9. CK 22, LDH 2721. Blood sugars running in the 120s and 130s. Repeat chest x-ray reveals continued bilateral airspace disease. Patient has been seen by neurology with recommendations to continue Keppra 500 mg twice daily for seizure prophylaxis. Records from [facility] to be obtained. Patient was started on desmopressin 0.05 mg 1 tablet twice a day for central diabetes insipidus. Vitamin B-12 and folate levels ordered. TSH and ammonia level. Thiamine was started. Patient was also seen by nephrology for hypernatremia and started on normal saline at 50 mL per hour for now. 08/19: Patient remains in the intensive care unit oxygen is down to 80% on BiPAP with pulse ox running between 89 and 92. She has been afebrile, heart rate 73, blood pressure 101/59. Pulse ox drops if BiPAP is removed. We will start a soft diet as she is stating she is hungry. Midline was placed yesterday. Repe at blood work reveals WBC 6.5, hemoglobin 9.2, platelet count 161. D-dimer 2.63, fibrinogen 503, INR 4.1. Creatinine 0.81. Blood sugars run between 146 and 225. Repeat chest x-ray reveals slight improvement of diffuse infiltrate can be compatible with atypical pneumonia. Patient received DDAVP yesterday. She is currently on D5W at 60 mL per hour. She remains on Solu-Medrol 60 mg IV every 6 hours. 08/20: Patient remains in intensive care unit. She is on BiPAP and desats quickly if this is removed down to 75. She is confused and has pulled off her BiPAP. She is able to a very little today due to desaturation. Daughter has been updated during the night of the patient's status. She has been afebrile, heart rate 80, respiratory rate 26-44, blood pressure 169/88, pulse ox 92% on 70% FiO2 on BiPAP. Repeat blood work reveals Gaby BC 6.3, hemoglobin 9.6, platelet count 158. Lymphocytes are 0.7. BUN 36 creatinine 0.72. Blood sugars running between 130 348. Ferritin 2476. AST 92, ALT 198, alkaline phosphatase 294. LDH 2668. CK 0.1, C-reactive protein 22.7. Urine culture is showing gram- negative bacilli. Blood culture no growth after 72 hours 2 specimens. Repeat chest x-ray reveals cardiomegaly with bilateral multifocal acute infiltrates consistent with COVID-19. Patient is continued on IV fluids of D5W at 60 mL per hour and change today to half-normal saline. Patient received 1 dose of IV Lasix this morning. Desmopressin was discontinued as central diabetes insipidus was ruled out. 08/21: The patient is more alert today. She is now on high flow AirVo with FiO2 of 85%. Patient was able to tolerate chopped diet as morning. She was started yesterday on TPN. She is complaining of right shoulder pain which is of chronic nature and Newell resumed as well as lidocaine cream started. Patient has been afebrile, heart rate 82, blood pressure 156/75. Respiratory rate 24. Pulse ox 93% on FiO2 of 85%. 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 Repeat chest x-ray reveals stable bilateral lung infiltrates. Repeat blood work reveals WBC 7.4, hemoglobin 9.5. Creatinine 0.73. Blood sugars between 148 and 165. Liver function tests remain elevated with total bilirubin 1, AST 78, ALT 233, alkaline phosphatase 286. LDH is 2566. CK less than 20. C-reactive protein 10.8. Urine culture finalized with E. coli. Blood cultures showing no growth. 08/22: Patient remains in the intensive care unit. Oxygen is down to 70% with pulse ox of 95%. Heart rate is 140 and patient went into atrial fibrillation currently transitioned to oral amiodarone and Cardizem drip. TPN was started and patient ate 50% of her breakfast this morning. She has been afebrile. Blood pressure 147/83. Repeat blood work reveals WBC 8, hemoglobin 9.4. Blood sugars running between 228 and 300. Electrolytes normal, creatinine 0.72. Phosphorus 3.1, magnesium 2.4. Ferritin 2011, total bilirubin 0.6, AST 75, ALT 288, alkaline phosphatase 282. LDH 2469. CK less than 20. 08/23: Patient remains in the intensive care unit but has progressed very well over the past 24 hours and is scheduled for transfer out to the [facility] floor. Repeat chest x-ray reveals stable diffuse bilateral infiltrates. Dr. English has recommended continued treatment for blood pressure and his blood pressure is stable, clonidine patch can be discontinued. Patient continued on beta josh and amiodarone for another 72 hours and then amiodarone dose can be decreased. The patient can be switched back to oral Coumadin. She has been afebrile, heart rate 69, blood pressure 133/71, pulse ox 95% on high flow nasal cannula 15 L. WBC 9.0, hemoglobin 8.2. Electrolytes normal, BUN 42 and creatinine 0.77. Blood sugars running between 179 and 291. LDH 1980. Total bilirubin 0.5. AST 37, ALT 211, alkaline phosphatase 258. 08/24: Patient continues to have cough. Patient has been afebrile, heart rate 80, blood pressure 138/79, pulse ox 94-97% on 15 L high flow nasal cannula. INR is 1.2. Patient was started on Coumadin last night of 5 mg, pharmacy dosing. Blood sugar 129 244.She is very much looking forward to getting home eventually. She is agreeable to subacute rehab and PT has recommended subacute rehab. We will plan for his base manager/social work supervisor following up tomorrow. 08/25: Patient's pain status continues to improve. She has been afebrile, heart rate 76, blood pressure 163/74, pulse ox is 98% on 10 L high flow nasal cannula. WBC 8.6, hemoglobin 9.3, platelet count 226. Patient denies any abdominal pain. She is tolerating diet. She is continued on IV Solu-Medrol. INR today 1.7 and pharmacy is dosing Coumadin. Sodium 147, potassium 5.4, chloride 113, CO2 27.5. BUN 55 and creatinine 1. Blood sugars run between 137-188. Liver function tests remain elevated with AST 51, ALT 342, alkaline phosphatase 265. Nephrology has discontinued potassium supplement and considering D5W tomorrow sodium remains elevated. PT and OT to start working with the patient is a need for subacute rehab. 08/26: She has been afebrile, heart rate 75, blood pressure 106/76, pulse ox 90- 96% on 8 L high flow nasal cannula. Blood sugars running between 150 and 218. Repeat INR 2.29 and Lovenox will be discontinued. Patient continues to complain of weakness. She denies having any diarrhea. Patient is awake and alert. No mental status changes. 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 08/27: Patient has been afebrile, heart rate 78, blood pressure 133/75, pulse ox 92% on 8 L nasal cannula. Patient states that she is feeling so-so but better since she is bit on the MedSurg floor. The patient will update her to call social work regarding discharge planning. INR is 2.6. W BC 7.2, hemoglobin 8.3, platelet count 282. Blood sugars running between 118 197. Sodium 147, potassium 4.8. BUN 41 creatinine 0.7. ALT 189, alkaline phosphat ase 192, LDH 541, C-reactive protein 0.9. D-dimer 0.55. 08/28: Patient has no new complaints. Respiratory status is slowly improving. Her pulse ox today is at 90% on 10 L nasal cannula, afebrile, heart rate 76, blood pressure 156/77. WBC 9.4, hemoglobin 8.4, platelet count 296. Blood sugars run between 132 and 239. Electrolytes are normal, creatinine 0.8. AST 29, ALT 170, alkaline phosphatase 176. Patient's has been contacted and updated regarding patient's progress. Anticipate discharge once oxygen need is down to 6 L. REVIEW OF SYSTEMS Constitutional: No fever, no chills, no night sweats. No weight change. Reports continued weakness, reports fatigue, reports daytime sleepiness. EENT: No headache. No blurred vision or double vision, no loss of vision. No loss of Hearing, no ringing in the ears, no dizziness. No nasal drainage or congestion. No epistaxis. No sore throat. Lungs: Reports continued shortness of breath improving, reports cough improving, no sputum production. No wheezing. Cardiovascular: No chest pain, no lower extremity edema. No palpitations. No paroxysmal nocturnal dyspnea. No orthopnea. No lightheadedness or dizziness. No syncopal episodes. Abdominal: No abdominal pain. No nausea, vomiting. No diarrhea. No constipation. No bloody or tarry stools. Reports increased appetite. Genitourinary: No dysuria, increased frequency, urgency. No urinary retention. Moses catheter in place. Musculoskeletal: No myalgias. No muscle weakness, no gait dysfunction, no frequent falls. No back pain. No neck pain. Integumentary: No wounds, no lesions. No rash or pruritus. No unusual bruising. Neurologic: No aphasia. No facial droop. No change in mentation. No head injury. No headache. No paralysis. No paresthesia. Psychiatric: No depression. No anxiety. Endocrine: No abnormal blood sugars. No weight change. PHYSICAL EXAMINATION Gen: This is a 63-year-old female. She is seen today on the [facility] floor. HEENT: Head is atraumatic, normocephalic. Pupils equal, round. Sclerae is anicteric. NECK: Supple. No JVD. No lymphadenopathy. No thyromegaly. LUNGS: Scattered rhonchi. No wheezes. Mild intercostal retractions. HEART: Regular rate and rhythm. 3/6 systolic murmur. ABDOMEN: Soft. Bowel sounds are present. No masses. No tenderness. Moses catheter in place. EXTREMITIES: No pedal edema. No calf tenderness. NEUROLOGICAL: Patient is awake, alert and oriented 3. No neuro deficits noted. ASSESSMENT AND PLAN 1. Acute hypoxic respiratory failure secondary to COVID-19 Pneumonia and COPD exacerbation. Consult with pulmonary medicine appreciated. Continue oxygen therapy. 2. COVID-19 pneumonia. Continue vitamin C, vitamin D, zinc, Solu-Medrol 40 mg IV every 6 hours, Lovenox. 3. COPD exacerbation. Continue Solu-Medrol 60 mg IV every 6 hours, pulmonary consult appreciated. 4. Acute hemorrhagic stroke with acute left subdural hemorrhage with benign tumor status post left frontal craniotomy. Patient was discharged on August 13 from [facility]/rehab facility. Continue Keppra and steroids. Consult with neurology appreciated. 5. Acute toxic metabolic encephalopathy secondary to Covid 19, hyponatremia. Neurology consult appreciated. Continue Keppra for prophylaxis seizure activity. Hold Lyrica. Newell resumed for shoulder pain. IV Keppra will be transitioned to oral. 6. Central diabetes insipidus ruled out. 7. History of pulmonary embolism and DVT. Continue Coumadin, pharmacy dosing. Monitor INR daily. 8. History of coronary artery disease. Continue Lopressor 9. Hypertension. Continue Lopressor 50 mg twice daily, amlodipine increased to 5 mg twice daily. hydralazine 10 mg IV push every 6 hours as needed 10. Hypothyroidism. Patient will be resumed on levothyroxine 25 g IV daily. 11. Hyperlipidemia. Hold pravastatin. 12. Recurrent depression. Continue venlafaxine 150 mg oral daily. Seroquel 25 mg at bedtime. 13. GI prophylaxis. Pepcid 20 mg IV every 12 hours. 14. DVT prophylaxis. Coumadin 15. UTI. Patient started on Rocephin. 16. Chronic right shoulder pain. Newell and lidocaine cream. 17. Severe protein calorie malnutrition. TPN has been discontinued. Continue oral diet. 18. Hyperglycemia secondary to steroids. Hemoglobin A1c is 5.6. Levemir 12 units twice daily, continue NovoLog scale before meals and at bedtime. 19. Hypernatremia. Nephrology is following. DISCHARGE PLAN Subacute rehab possibly on Tuesday. Impression and plan of care have been directed as dictated by the signing physician. Karyn Tamayo nurse practitioner acting as scribe for signing physician. Objective - Vital Signs Vital signs: Vital Signs Temp 98.7 F 08/28/20 05:00 Pulse 76 08/28/20 05:00 Resp 20 08/28/20 05:00 BP 156/77 08/28/20 05:00 Pulse Ox 90 L 08/28/20 05:00 Intake & Output 08/27/20 08/28/2021 18:59 06:59 18:59 Intake Total 590 Output Total 700 Balance -110 Weight 100.5 kg Intake: Oral 590 Output: Urine 700 Uretheral (Moses) 700 Other: Voiding Method Indwelling Catheter Indwelling Catheter # Bowel Movements 1 - Labs CBC & Chem 7: 08/28/20 06:22 08/28/20 06:22 Labs: Abnormal Lab Results - Last 24 Hours (Table) 08/27/20 08/27/20 08/27/20 Range/Units 06:20 11:16 16:37 RBC (3.80-5.40) m/uL Hgb (11.4-16.0) gm/dL Hct (34.0-46.0) % MCV (80.0-100.0) fL RDW (11.5-15.5) % Sodium 147 H (135-145) mmol/L Chloride 111 H (96-109) mmol/L Carbon Dioxide 33.7 H (21.6-31.8) mmol/L Anion Gap 2.30 L (4.00-12.00) mmol/L BUN 41.0 H (9.0-27.0) mg/dL BUN/Creatinine Ratio 58.57 H (12.00-20.00) Ratio Glucose 132 H (70-110) mg/dL POC Glucose (mg/dL) 166 H 165 H (75-99) mg/dL Calcium 8.5 L (8.7-10.3) mg/dL ALT 189 H (8-44) U/L Alkaline Phosphatase 192 H (41-126) U/L Lactate Dehydrogenase 541 H (120-246) U/L C-Reactive Protein 0.9 H (0.0-0.8) mg/dL Total Protein 4.8 L (6.2-8.2) g/dL Albumin 3.20 L (3.80-4.90) g/dL 08/27/20 08/28/20 08/28/20 Range/Units 20:11 06:22 07:03 RBC 2.52 L (3.80-5.40) m/uL Hgb 8.4 L (11.4-16.0) gm/dL Hct 25.5 L (34.0-46.0) % MCV 101.1 H (80.0-100.0) fL RDW 15.9 H (11.5-15.5) % Sodium (135-145) mmol/L Chloride (96-109) mmol/L Carbon Dioxide (21.6-31.8) mmol/L Anion Gap (4.00-12.00) mmol/L BUN (9.0-27.0) mg/dL BUN/Creatinine Ratio (12.00-20.00) Ratio Glucose (70-110) mg/dL POC Glucose (mg/dL) 239 H 132 H (75-99) mg/dL Calcium (8.7-10.3) mg/dL ALT (8-44) U/L Alkaline Phosphatase (41-126) U/L Lactate Dehydrogenase (120-246) U/L C-Reactive Protein (0.0-0.8) mg/dL Total Protein (6.2-8.2) g/dL Albumin (3.80-4.90) g/dL
--- NOTE | 2020-08-28 17:09 | PN ---
PROGRESS NOTE Patient is seen for followup for hypernatremia. Her sodium has improved. It had gone down to 144 but then increased again to 147 yesterday. Patient is maintained on D5W. She has been drinking as well. This morning blood pressure was 141/80, heart rate 65 per minute. She is afebrile. Patient appears euvolemic. No evidence of edema in lower extremities. Abdomen is soft, nontender. Labs show sodium 143, potassium 5.0, chloride 107. BUN 44, creatinine 0.8. ASSESSMENT: 1. Hypernatremia associated with free water deficit, currently improved. Patient has been maintained on D5W. If she has increased oral intake, we may be able to discontinue the D5W. Continue to monitor electrolytes periodically. 2. COVID-19 pneumonia, status post steroids. 3. Acute hemorrhagic stroke with acute left subdural hemorrhage with a benign tumor, status post left frontal craniotomy at [facility], being followed by Neurology. 4. Escherichia coli urinary tract infection, status post antibiotics. PLAN: Continue D5W until patient is eating better. Continue to encourage free water intake. MMODL / IJN: [id number] /
--- NOTE | 2020-08-28 17:17 | P.PN ---
Subjective Progress Note Date: 08/28/20 Principal diagnosis: Acute hypoxic respiratory failure secondary to CoVID 19 pneumonitis The patient is seen today 08/27/2020 in follow-up on the regular medical floor. She was admitted for acute hypoxic respiratory failure secondary to CoVID 19 pneumonitis. She was outside the window for Remdesivir. She did receive 2 units of convalescent plasma. She remains awake and alert in no acute distress. Confused to place. Calling out for her father. Currently requiring 8 L high flow nasal cannula to maintain O2 saturations in the 90s. Chest x-ray continues to show diffuse bilateral airspace disease. White count 7.2. Hemoglobin 8.3. Lymphocytes 0.5. INR 2.6. D-dimer 0.55. Sodium 147. Potassium 4.8. Creatinine 0.7. LDH 541. Remains on IV Solu-Medrol, Pepcid, vitamin supplements. Anticoagulated with warfarin. Patient is seen today 08/28/2020 follow-up on the regular medical floor. She is currently resting quite comfortably in bed. Awake and alert in no acute distress. States she is breathing easier today today. Remains on 10 L high flow nasal cannula. She's afebrile. White count 9.4. Hemoglobin 8.4. INR 2.37. Sodium 143. Potassium 5.0. Creatinine 0.8. She remains on vitamin supplements, Pepcid, melatonin, IV Solu-Medrol, anticoagulated with warfarin. Objective - Vital Signs Vital signs: Vital Signs Temp 97.8 F 08/28/20 17:00 Pulse 69 08/28/20 17:00 Resp 17 08/28/20 17:00 BP 146/83 08/28/20 17:00 Pulse Ox 99 08/28/20 17:00 Intake & Output 08/27/20 08/28/20 08/28/20 18:59 06:59 18:59 Intake Total 590 240 Output Total 700 700 Balance -110 -460 Weight 100.5 kg 100.5 kg Intake: Oral 590 240 Output: Urine 700 700 Uretheral (Moses) 700 Other: Voiding Method Indwelling Catheter Indwelling Catheter Indwelling Catheter # Bowel Movements 1 - Exam Gen: This is a pleasant 63-year-old female patient on 10 L high flow nasal cannula. O2 saturation is in the 90s. HEENT: Head is atraumatic, normocephalic. Pupils equal, round. Sclerae is anicteric. NECK: Supple. No JVD. No lymphadenopathy. No thyromegaly. LUNGS: Scattered rhonchi. No wheezes. Mild intercostal retractions. HEART: Regular rate and rhythm. 3/6 systolic murmur. ABDOMEN: Soft. Bowel sounds are present. No masses. No tenderness. Moses catheter in place. EXTREMITIES: No pedal edema. No calf tenderness. NEUROLOGICAL: Patient is awake, alert and oriented x3. Cranial nerves 2 through 12 are grossly intact. Psychiatric: Normal mood, affect and normal mental status examination. Skin: No rashes - Labs CBC & Chem 7: 08/28/20 06:22 08/28/20 06:22 Labs: Abnormal Lab Results - Last 24 Hours (Table) 08/27/20 08/28/20 08/28/20 Range/Units 20:11 06:22 06:22 RBC 2.52 L (3.80-5.40) m/uL Hgb 8.4 L (11.4-16.0) gm/dL Hct 25.5 L (34.0-46.0) % MCV 101.1 H (80.0-100.0) fL RDW 15.9 H (11.5-15.5) % PT 24.0 H (9.9-11.9) sec INR 2.37 H (0.90-1.11) BUN (9.0-27.0) mg/dL BUN/Creatinine Ratio (12.00-20.00) Ratio Glucose (70-110) mg/dL POC Glucose (mg/dL) 239 H (75-99) mg/dL ALT (8-44) U/L Alkaline Phosphatase (41-126) U/L Total Protein (6.2-8.2) g/dL Albumin (3.80-4.90) g/dL 08/28/20 08/28/20 08/28/20 Range/Units 06:22 07:03 11:16 RBC (3.80-5.40) m/uL Hgb (11.4-16.0) gm/dL Hct (34.0-46.0) % MCV (80.0-100.0) fL RDW (11.5-15.5) % PT (9.9-11.9) sec INR (0.90-1.11) BUN 44.0 H (9.0-27.0) mg/dL BUN/Creatinine Ratio 55.00 H (12.00-20.00) Ratio Glucose 120 H (70-110) mg/dL POC Glucose (mg/dL) 132 H 213 H (75-99) mg/dL ALT 170 H (8-44) U/L Alkaline Phosphatase 176 H (41-126) U/L Total Protein 5.2 L (6.2-8.2) g/dL Albumin 3.40 L (3.80-4.90) g/dL Assessment and Plan Assessment: 1 Acute hypoxic respiratory failure secondary to CoVID 19 pneumonia. Outside the window for Remdesivir. Did receive 2 units of convalescent plasma 2 Recent history of hemorrhagic stroke with left subdural hematoma status post left frontal craniotomy 3 Acute toxic metabolic encephalopathy 4 History of pulmonary embolism and DVT. On Lovenox. 5 History of underlying coronary artery disease. 6 Benign essential hypertension. 7 Hypothyroidism. 8 Dyslipidemia. 9 Paroxysmal atrial fibrillation, patient is now on Cardizem, and beta blockers. Presently in sinus rhythm. Anticoagulated with warfarin. Plan: The patient was seen and evaluated by Dr. Nava Continue the current treatment plan Anticoagulated with warfarin Titrate down the FiO2 as tolerated We'll continue to follow I, the cosigning physician, performed a history & physical examination of the patient. Lungs sounds with bilateral scattered rhonchi. Maintaining good O2 saturations in the 90s on 10 L high flow nasal cannula. I discussed the assessment and plan of care with my nurse practitioner, Janneth Andrew. I attest to the above note as dictated by her.
[2020-08-28 17:23] LABS: Glucose,Whole Blood 124 mg/dL (75-99)
[2020-08-28] MEDS ORDERED: WARFARIN 2 MG TAB PO ONE (18:00)
--- NOTE | 2020-08-28 18:30 | P.PN ---
Subjective Progress Note Date: 08/28/20 06/28/2021: Patient continues to be tachypneic. Patient still appears sick, short of breath, Denies any headache. Does not offer any complaints otherwise. 06/26/2021: Patient initially seen by Dr. Vipin Nava. Please refer to his note for details. Patient initially presented for altered mental status. Patient has history of left frontal subdural hemorrhage with meningioma status post craniotomy, previous history of pulmonary embolism. Reconsulted for altered mental status. Patient appears encephalopathic, laying in the bed, somewhat short of breath. Patient answers to some questions. Denie s headache. Patient's INR is 2.29. Electrolytes are normal. BUN 49, creatinine 0.76. CBC with WBC 8.6, hemoglobin 9.3 with elevated MCV 101.2. Hemoglobin A1c 5.6 Ammonia <9 B12 342, folate normal TSH is mildly low 0.305. Free T4 normal 0.85. IM to address thyroid dysfunction. Chest x-ray showed continued diffuse bilateral airspace disease. Cardiomegaly also demonstrated. 2-D echo showed left-ventricular size is normal. Moderate concentric LVH. EF is 60-65%. Mild aortic valve sclerosis. Objective - Vital Signs Vital signs: Vital Signs Temp 97.8 F 08/28/20 17:00 Pulse 69 08/28/20 17:00 Resp 17 08/28/20 17:00 BP 146/83 08/28/20 17:00 Pulse Ox 99 08/28/20 17:00 Intake & Output 08/27/20 08/28/20 08/28/20 18:59 06:59 18:59 Intake Total 590 720 Output Total 700 700 Balance -110 20 Weight 100.5 kg 100.5 kg Intake: Oral 590 720 Output: Urine 700 700 Uretheral ([facility]) 700 Other: Voiding Method Indwelling Catheter Indwelling Catheter Indwelling Catheter # Bowel Movements 1 - Exam Patient more alert and awake. Still slightly encephalopathic. Able to tell me her name, and the current year, and that she is in [facility]. Speech and language functions are clear. Face is symmetric. Pupils are round and reacting. Tongue protrudes the midline. On muscle strength testing patient is weak in the right arm as compared to the left. Patient able to wiggle her feet, toes, but not able to lift her legs. Patient has peripheral edema. Cerebellar functions, sensations patient did not cooperate, she was too sick, tachypneic to answer. Patient's patient breathing at 28/m. - Labs CBC & Chem 7: 08/28/20 06:22 08/28/20 06:22 Labs: Abnormal Lab Results - Last 24 Hours (Table) 08/27/20 08/28/20 08/28/20 Range/Units 20:11 06:22 06:22 RBC 2.52 L (3.80-5.40) m/uL Hgb 8.4 L (11.4-16.0) gm/dL Hct 25.5 L (34.0-46.0) % MCV 101.1 H (80.0-100.0) fL RDW 15.9 H (11.5-15.5) % PT 24.0 H (9.9-11.9) sec INR 2.37 H (0.90-1.11) BUN (9.0-27.0) mg/dL BUN/Creatinine Ratio (12.00-20.00) Ratio Glucose (70-110) mg/dL POC Glucose (mg/dL) 239 H (75-99) mg/dL ALT (8-44) U/L Alkaline Phosphatase (41-126) U/L Total Protein (6.2-8.2) g/dL Albumin (3.80-4.90) g/dL 08/28/20 08/28/20 08/28/20 Range/Units 06:22 07:03 11:16 RBC (3.80-5.40) m/uL Hgb (11.4-16.0) gm/dL Hct (34.0-46.0) % MCV (80.0-100.0) fL RDW (11.5-15.5) % PT (9.9-11.9) sec INR (0.90-1.11) BUN 44.0 H (9.0-27.0) mg/dL BUN/Creatinine Ratio 55.00 H (12.00-20.00) Ratio Glucose 120 H (70-110) mg/dL POC Glucose (mg/dL) 132 H 213 H (75-99) mg/dL ALT 170 H (8-44) U/L Alkaline Phosphatase 176 H (41-126) U/L Total Protein 5.2 L (6.2-8.2) g/dL Albumin 3.40 L (3.80-4.90) g/dL 08/28/20 Range/Units 17:22 RBC (3.80-5.40) m/uL Hgb (11.4-16.0) gm/dL Hct (34.0-46.0) % MCV (80.0-100.0) fL RDW (11.5-15.5) % PT (9.9-11.9) sec INR (0.90-1.11) BUN (9.0-27.0) mg/dL BUN/Creatinine Ratio (12.00-20.00) Ratio Glucose (70-110) mg/dL POC Glucose (mg/dL) 124 H (75-99) mg/dL ALT (8-44) U/L Alkaline Phosphatase (41-126) U/L Total Protein (6.2-8.2) g/dL Albumin (3.80-4.90) g/dL Assessment and Plan Assessment: * Recent history of left intracerebral hemorrhage, with left-sided frontal subdural hematoma status post craniotomy at [facility], discharged on 08/13/2020. Patient has mild residual right hemiparesis. * Altered mental status, likely due to toxic metabolic encephalopathy, improved. * Recent history of Covid pneumonia. Patient still tachypneic, appears to have difficulty breathing. * Atrial fibrillation, currently on warfarin. * Anemia * Hypertension * Hypothyroidism * Hyperlipidemia Plan: * Patient's altered mental status is likely due to toxic metabolic encephalopathy. Overall improved, but patient continues to be encephalopathic. * Patient also has history of recent left-sided intracerebral hemorrhage with subdural hematoma requiring craniotomy. Patient's altered mentation could a lso be related to effect of recent craniotomy, CVA, recent Covid and other metabolic dysfunctions as mentioned above. * No evidence of seizures. No indication for EEG. Patient currently on Keppra 500 mg every 12 hours. * Patient's encephalopathy hopefully will improve over time. * B12 342, folate normal. No other workup indicated. * Neurology will sign off. Please reconsult if any concerns.
[2020-08-28] MEDS: MELATONIN 5 MG TABLET PO SCH (20:32)
[2020-08-28] MEDS: QUEtiapine 25 MG TAB PO SCH (20:32)
[2020-08-28] MEDS: FAMOTIDINE 20 MG TAB PO SCH (20:32)
[2020-08-28] MEDS: HYDROcodone/APAP 5-325MG 1 EACH TAB PO PRN (20:33)
[2020-08-28 20:40] LABS: Glucose,Whole Blood 233 mg/dL (75-99)
[2020-08-29] MEDS: LEVOTHYROXINE 75 MCG TAB PO SCH (05:55)
[2020-08-29] MEDS: methylPREDNISolone SOD SUCCI 40 MG/ML 1 ML VIAL IV SCH ×3 (05:55→17:14)
--- NOTE | 2020-08-29 07:08 | CT ---
EXAMINATION TYPE: CT brain wo con DATE OF EXAM: 08/29/2020 HISTORY: Change in MS, post Craniotomy CT DLP: 1108.4 mGycm. Automated Exposure Control for Dose Reduction was Utilized. TECHNIQUE: CT scan of the head is performed without contrast. COMPARISON: CT brain 13 days ago. FINDINGS: There is no acute intracranial hemorrhage or midline shift identified. High left frontopa rietal craniotomy change is redemonstrated. Some adjacent focal encephalomalacia and dystrophic calci fication at this level again seen There is mild to moderate diffuse ventricular and sulcal prominence consistent with diffuse age-related cerebral atrophy. There is moderate low-attenuation in the artemio ventricular white matter consistent with chronic small vessel ischemic change. The globes are intact and the visualized sinuses are clear. IMPRESSION: No new acute intracranial hemorrhage or midline shift. Left-sided postsurgical changes r edemonstrated. There is mild to moderate diffuse age-related cerebral atrophy and chronic small vesse l ischemic change redemonstrated. No significant change from recent CT.
[2020-08-29 07:22] LABS: Glucose,Whole Blood 156 mg/dL (75-99)
[2020-08-29] MEDS: INSULIN DETEMIR (LEVEMIR) 100 UNIT/ML SYR SQ SCH ×2 (08:22→21:32)
[2020-08-29] MEDS: CHOLECALCIFEROL 1,000 UNIT TAB PO SCH (08:23)
[2020-08-29] MEDS: AMIODARONE 200 MG TAB PO SCH ×2 (08:23→21:30)
[2020-08-29] MEDS: VENLAFAXINE HCL ER 150 MG CAP PO SCH (08:23)
[2020-08-29] MEDS: ASCORBIC ACID 500 MG TAB PO SCH (08:23)
[2020-08-29] MEDS: DOCUSATE 100 MG CAP PO SCH (08:23)
[2020-08-29] MEDS: amLODIPine 5 MG TAB PO SCH ×2 (08:23→21:31)
[2020-08-29] MEDS: INSULIN ASPART (NovoLOG) 100 UNIT/ML VIAL SQ SCH ×4 (08:23→21:32)
[2020-08-29] MEDS: levETIRAcetam 500 MG TAB PO SCH ×2 (08:24→21:31)
[2020-08-29] MEDS: FAMOTIDINE 20 MG TAB PO SCH ×2 (08:24→21:30)
[2020-08-29] MEDS: CYANOCOBALAMIN 500 MCG TAB PO SCH (08:24)
[2020-08-29] MEDS: METOPROLOL TARTRATE 50 MG TAB PO SCH ×2 (09:03→21:30)
[2020-08-29] MEDS: THIAMINE 100 MG TAB PO SCH (09:03)
[2020-08-29] MEDS: ZINC SULFATE 220 MG CAP PO SCH (09:03)
[2020-08-29 10:00] LABS: INR 2.65 (0.90-1.11); Prothrombin Time 26.6 sec (9.9-11.9)
--- NOTE | 2020-08-29 10:55 | P.PN ---
Subjective Progress Note Date: 08/29/20 HISTORY OF PRESENT ILLNESS Ms. Sutherland is a 64 years old female patient of Dr. Siu with past medical history of coronary artery disease, hypertension, history of DVT and pul monary embolism in 2002, fibromyalgia, asthma who presented to the hospital with worsening shortness of breath associated with change in mental status for the past 24 hours. Patient was in [facility] for subdural hemorrhage associated with meningioma in the left frontal lobe. Patient underwent left frontal craniotomy and was discharged on 08/13 on seizure precaution medication and pain medication. Patient's daughter is an RN who checked her oxygen at home which was saturating at 38%. Patient was brought to the hospital by EMS as patient was found unresponsive with her oxygen in the 40s and was placed on a BiPAP. Patient is unable to provide any history as she Is confused. Called patient's who stated that patient was doing well post discharge until last night when she became short of breath and confused. Patient did have acute stroke from the subdural hemorrhage causing right arm and right leg weakness associated with a phase ER. Patient was in the hospital for 6 weeks and recovered from both right upper and lower extremity weakness and a phasia. Patient was smoking at home post discharge. She was evaluated by her daughter who is an RN who insisted on calling EMS as she did not appear well.On evaluation in the ER patient was found to have bilateral groundglass opacities concerning for call with pneumonia. Vital suggested temp of 97.9 pulse 81 blood pressure 122/78 respiratory rate of 20. Call with 19 was positive. WBC 5.8 hemoglobin 10.4. ABG was obtained with a pO2 of 55 pCO2 of 44 . Patient's sodium is 146 chloride 117 BUN 48 creatinine 1.01 glucose 110 AST 74 8079 magnesium 2.5 proBNP 1560 LDH 2556 troponin negative 1 CRP 220. INR is jose vated at 2.6. Pulmonary consult was placed. Patient placed on Solu-Medrol 60 every 6, zinc sulfide 220 vitamin C 1000 mg daily. EKG was normal sinus rhythm with no ST or segment depression or elevation. 1/3 patient assessed in ICU currently on BiPAP. Patient is oriented 2. Patient was not able to tolerate being off BiPAP for even a few minutes to take her medications. Patient is currently on 100% FiO2 on BiPAP saturating at 91- 92% vitals otherwise stable temp of 98.8 pulse 75 respiratory rate 27 blood pressure 129/53. Patient has a drop of hemoglobin from 10.4-8 today with MCV 103. INR is 1.8 subtherapeutic, elevated APTT 50 in origin and d-dimer 0.97. PCO2 is 46 pO2 71 bicarb 28 with a pH of 7.37, sodium 146 chloride 1:15, BUN 48 creatinine 0.87 glucose 125. Alkaline phosphatase has increased to 215 from 1:15, AST increased from 7 to 151 ALT increased from 79 to 201. Ultrasound abdomen ordered to evaluate for liver and gallbladder. 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 Patient is unable to take oral medication will switch patient's medication to IV today 08/18: Patient remains in the intensive care unit on BiPAP. She maintains a pulse ox of 91-96% but quickly drops if BiPAP is removed. She's been afebrile, heart rate 73, blood pressure 146/75. Repeat blood work reveals WBC 6.3, hemoglobin 10, platelet count 173. INR is 3.1. Fibrinogen 572, d-dimer 1.09. Sodium 152, potassium 4.4, chloride 117, CO2 31, BUN 48 and creatinine 0.89. TSH 0.305. ProBNP 1290. C-reactive protein 87.9. CK 22, LDH 2721. Blood sugars running in the 120s and 130s. Repeat chest x-ray reveals continued bilateral airspace disease. Patient has been seen by neurology with recommendations to continue Keppra 500 mg twice daily for seizure prophylaxis. Records from [facility] to be obtained. Patient was started on desmopressin 0.05 mg 1 tablet twice a day for central diabetes insipidus. Vitamin B-12 and folate levels ordered. TSH and ammonia level. Thiamine was started. Patient was also seen by nephrology for hypernatremia and started on normal saline at 50 mL per hour for now. 08/19: Patient remains in the intensive care unit oxygen is down to 80% on BiPAP with pulse ox running between 89 and 92. She has been afebrile, heart rate 73, blood pressure 101/59. Pulse ox drops if BiPAP is removed. We will start a soft diet as she is stating she is hungry. Midline was placed yesterday. Repe at blood work reveals WBC 6.5, hemoglobin 9.2, platelet count 161. D-dimer 2.63, fibrinogen 503, INR 4.1. Creatinine 0.81. Blood sugars run between 146 and 225. Repeat chest x-ray reveals slight improvement of diffuse infiltrate can be compatible with atypical pneumonia. Patient received DDAVP yesterday. She is currently on D5W at 60 mL per hour. She remains on Solu-Medrol 60 mg IV every 6 hours. 08/20: Patient remains in intensive care unit. She is on BiPAP and desats quickly if this is removed down to 75. She is confused and has pulled off her BiPAP. She is able to a very little today due to desaturation. Daughter has been updated during the night of the patient's status. She has been afebrile, heart rate 80, respiratory rate 26-44, blood pressure 169/88, pulse ox 92% on 70% FiO2 on BiPAP. Repeat blood work reveals Gaby BC 6.3, hemoglobin 9.6, platelet count 158. Lymphocytes are 0.7. BUN 36 creatinine 0.72. Blood sugars running between 130 348. Ferritin 2476. AST 92, ALT 198, alkaline phosphatase 294. LDH 2668. CK 0.1, C-reactive protein 22.7. Urine culture is showing gram- negative bacilli. Blood culture no growth after 72 hours 2 specimens. Repeat chest x-ray reveals cardiomegaly with bilateral multifocal acute infiltrates consistent with COVID-19. Patient is continued on IV fluids of D5W at 60 mL per hour and change today to half-normal saline. Patient received 1 dose of IV Lasix this morning. Desmopressin was discontinued as central diabetes insipidus was ruled out. 08/21: The patient is more alert today. She is now on high flow AirVo with FiO2 of 85%. Patient was able to tolerate chopped diet as morning. She was started yesterday on TPN. She is complaining of right shoulder pain which is of chronic nature and [place] resumed as well as lidocaine cream started. Patient has been afebrile, heart rate 82, blood pressure 156/75. Respiratory rate 24. Pulse ox 93% on FiO2 of 85%. manager monitoring is a sinus rhythm. Repeat chest x-ray reveals stable bilateral lung infiltrates. Repeat blood work reveals WBC 7.4, hemoglobin 9.5. Creatinine 0.73. Blood sugars between 148 and 165. Liver function tests remain elevated with total bilirubin 1, AST 78, ALT 233, alkaline phosphatase 286. LDH is 2566. CK less than 20. C-reactive protein 10.8. Urine culture finalized with E. coli. Blood cultures showing no growth. 08/22: Patient remains in the intensive care unit. Oxygen is down to 70% with pulse ox of 95%. Heart rate is 140 and patient went into atrial fibrillation currently transitioned to oral amiodarone and Cardizem drip. TPN was started and patient ate 50% of her breakfast this morning. She has been afebrile. Blood pressure 147/83. Repeat blood work reveals WBC 8, hemoglobin 9.4. Blood sugars running between 228 and 300. Electrolytes normal, creatinine 0.72. Phosphorus 3.1, magnesium 2.4. Ferritin 2011, total bilirubin 0.6, AST 75, ALT 288, alkaline phosphatase 282. LDH 2469. CK less than 20. 08/23: Patient remains in the intensive care unit but has progressed very well over the past 24 hours and is scheduled for transfer out to the [facility] floor. Repeat chest x-ray reveals stable diffuse bilateral infiltrates. Dr. English has recommended continued treatment for blood pressure and his blood pressure is stable, clonidine patch can be discontinued. Patient continued on beta josh and amiodarone for another 72 hours and then amiodarone dose can be decreased. The patient can be switched back to oral Coumadin. She has been afebrile, heart rate 69, blood pressure 133/71, pulse ox 95% on high flow nasal cannula 15 L. WBC 9.0, hemoglobin 8.2. Electrolytes normal, BUN 42 and creatinine 0.77. Blood sugars running between 179 and 291. LDH 1980. Total bilirubin 0.5. AST 37, ALT 211, alkaline phosphatase 258. 08/24: Patient continues to have cough. Patient has been afebrile, heart rate 80, blood pressure 138/79, pulse ox 94-97% on 15 L high flow nasal cannula. INR is 1.2. Patient was started on Coumadin last night of 5 mg, pharmacy dosing. Blood sugar 129 244.She is very much looking forward to getting home eventually. She is agreeable to subacute rehab and PT has recommended subacute rehab. We will plan for his manager cancer/social science analyst following up tomorrow. 08/25: Patient's pain status continues to improve. She has been afebrile, heart rate 76, blood pressure 163/74, pulse ox is 98% on 10 L high flow nasal cannula. WBC 8.6, hemoglobin 9.3, platelet count 226. Patient denies any abdominal pain. She is tolerating diet. She is continued on IV Solu-Medrol. INR today 1.7 and pharmacy is dosing Coumadin. Sodium 147, potassium 5.4, chloride 113, CO2 27.5. BUN 55 and creatinine 1. Blood sugars run between 137-188. Liver function tests remain elevated with AST 51, ALT 342, alkaline phosphatase 265. Nephrology has discontinued potassium supplement and considering D5W tomorrow sodium remains elevated. PT and OT to start working with the patient is a need for subacute rehab. 08/26: She has been afebrile, heart rate 75, blood pressure 106/76, pulse ox 90- 96% on 8 L high flow nasal cannula. Blood sugars running between 150 and 218. Repeat INR 2.29 and Lovenox will be discontinued. Patient continues to complain of weakness. She denies having any diarrhea. Patient is awake and alert. No mental status changes. aerospace project manager is in process of making discharge plans with patient's . 08/27: Patient has been afebrile, heart rate 78, blood pressure 133/75, pulse ox 92% on 8 L nasal cannula. Patient states that she is feeling so-so but better since she is bit on the MedSurg floor. The patient will update her to call social work regarding discharge planning. INR is 2.6. W BC 7.2, hemoglobin 8.3, platelet count 282. Blood sugars running between 118 197. Sodium 147, potassium 4.8. BUN 41 creatinine 0.7. ALT 189, alkaline phosphat ase 192, LDH 541, C-reactive protein 0.9. D-dimer 0.55. 08/28: Patient has no new complaints. Respiratory status is slowly improving. Her pulse ox today is at 90% on 10 L nasal cannula, afebrile, heart rate 76, blood pressure 156/77. WBC 9.4, hemoglobin 8.4, platelet count 296. Blood sugars run between 132 and 239. Electrolytes are normal, creatinine 0.8. AST 29, ALT 170, alkaline phosphatase 176. Patient's has been contacted and updated regarding patient's progress. Anticipate discharge once oxygen need is down to 6 L. 08/29: Patient's oxygen was increased to 10 L high flow nasal cannula. It appears that she did not have any respiratory distress that would warrant this. Discussed with the nurse this morning that we will need to get a back to 8 and our goal will be 6 or below so that she can go to the senior care on Tuesday. Patient's was updated via phone call by Dr. Ariza yesterday. Our discharge plan is for [facility] or [facility] on Tuesday. Patient has been afebrile, heart rate 71, blood pressure 168/77. Pulse ox 97% on 8 L high flow nasal cannula. INR is 2.65 and pharmacy is dosing. Blood sugars running between 156 and 233. Norvasc has been increased to twice daily 5 mg yesterday. Hydralazine will be resumed at 50 mg twice daily for blood pressure control. Patient is normally on hydralazine 100 mg 3 times daily. REVIEW OF SYSTEMS Constitutional: No fever, no chills, no night sweats. No weight change. Reports continued weakness, reports fatigue, reports daytime sleepiness. EENT: No headache. No blurred vision or double vision, no loss of vision. No loss of Hearing, no ringing in the ears, no dizziness. No nasal drainage or congestion. No epistaxis. No sore throat. Lungs: Reports continued shortness of breath improving, reports cough improving, no sputum production. No wheezing. Cardiovascular: No chest pain, no lower extremity edema. No palpitations. No paroxysmal nocturnal dyspnea. No orthopnea. No lightheadedness or dizziness. No syncopal episodes. Abdominal: No abdominal pain. No nausea, vomiting. No diarrhea. No constipation. No bloody or tarry stools. Reports increased appetite. Genitourinary: No dysuria, increased frequency, urgency. No urinary retention. Moses catheter in place. Musculoskeletal: No myalgias. No muscle weakness, no gait dysfunction, no frequent falls. No back pain. No neck pain. Integumentary: No wounds, no lesions. No rash or pruritus. No unusual bruising. Neurologic: No aphasia. No facial droop. No change in mentation. No head injury. No headache. No paralysis. No paresthesia. Psychiatric: No depression. No anxiety. Endocrine: Reports abnormal blood sugars. No weight change. PHYSICAL EXAMINATION Gen: This is a 63-year-old female. She is seen today on the [facility] floor. Patient is to be in no acute respiratory distress at rest. HEENT: Head is atraumatic, normocephalic. Pupils equal, round. Sclerae is anicteric. NECK: Supple. No JVD. No lymphadenopathy. No thyromegaly. LUNGS: Scattered rhonchi. No wheezes. Mild intercostal retractions. HEART: Regular rate and rhythm. 3/6 systolic murmur. ABDOMEN: Soft. Bowel sounds are present. No masses. No tenderness. Moses catheter in place. EXTREMITIES: No pedal edema. No calf tenderness. NEUROLOGICAL: Patient is awake, alert and oriented 3. No neuro deficits noted. ASSESSMENT AND PLAN 1. Acute hypoxic respiratory failure secondary to COVID-19 Pneumonia and COPD exacerbation. Consult with pulmonary medicine appreciated. Continue oxygen therapy. 2. COVID-19 pneumonia. Continue vitamin C, vitamin D, zinc, Solu-Medrol 40 mg IV every 6 hours, Coumadin. 3. COPD exacerbation. Continue Solu-Medrol 40 mg IV every 6 hours, pulmonary consult appreciated. 4. Acute hemorrhagic stroke with acute left subdural hemorrhage with benign tumor status post left frontal craniotomy. Patient was discharged on August 13 from [facility]/rehab facility. Continue Keppra and steroids. Consult with neurology appreciated. 5. Acute toxic metabolic encephalopathy secondary to Covid 19, hyponatremia. Neurology consult appreciated. Continue Keppra for prophylaxis seizure activity. Hold Lyrica. [place] resumed for shoulder pain. 6. Central diabetes insipidus ruled out. 7. History of pulmonary embolism and DVT. Continue Coumadin, pharmacy dosing. Monitor INR daily. 8. History of coronary artery disease. Continue Lopressor 9. Hypertension. Continue Lopressor 50 mg twice daily, amlodipine 5 mg twice daily. Resume hydralazine at 50 mg twice daily. hydralazine 10 mg IV push ever y 6 hours as needed 10. Hypothyroidism. Continue levothyroxine 37.5 mg daily. 11. Hyperlipidemia. Hold pravastatin. 12. Recurrent depression. Continue venlafaxine 150 mg oral daily. Seroquel 25 mg at bedtime. 13. GI prophylaxis. Pepcid 20 mg oral every 12 hours. 14. DVT prophylaxis. Coumadin 15. UTI. Patient started on Rocephin. 16. Chronic right shoulder pain. [place] and lidocaine cream. 17. Severe protein calorie malnutrition. TPN has been discontinued. Continue oral diet. 18. Hyperglycemia secondary to steroids. Hemoglobin A1c is 5.6. Levemir 12 units twice daily, continue NovoLog scale before meals and at bedtime. 19. Hypernatremia. Nephrology is following. DISCHARGE PLAN Subacute rehab possibly on Tuesday. Impression and plan of care have been directed as dictated by the signing physician. Karyn Tamayo nurse practitioner acting as scribe for signing physician. Objective - Vital Signs Vital signs: Vital Signs Temp 98.1 F 08/29/20 05:00 Pulse 73 08/29/20 05:00 Resp 20 08/29/20 05:00 BP 168/77 08/29/20 05:00 Pulse Ox 96 08/29/20 05:00 Intake & Output 08/28/20 08/29/20 08/29/20 18:59 06:59 18:59 Intake Total 1920 100 Output Total 820 0 Balance 1100 100 Weight 100.5 kg 101 kg Intake: IV 120 Dextrose 5%-0.45% NaCl 1, 120 000 ml @ 20 mls/hr IV . Q24H TABATHA Rx#:[id number] Intake, IV Titration 600 Amount Dextrose 5% in Water 1, 600 000 ml @ 50 mls/hr IV . Q20H TABATHA Rx#:[id number] Oral 1200 100 Output: Urine 820 0 Other: Voiding Method Indwelling Catheter Indwelling Catheter # Voids 1 0 # Bowel Movements 0 - Labs CBC & Chem 7: 08/28/20 06:22 08/28/20 06:22 Labs: Abnormal Lab Results - Last 24 Hours (Table) 08/28/20 08/28/20 08/28/20 Range/Units 06:22 06:22 11:16 PT 24.0 H (9.9-11.9) sec INR 2.37 H (0.90-1.11) BUN 44.0 H (9.0-27.0) mg/dL BUN/Creatinine Ratio 55.00 H (12.00-20.00) Ratio Glucose 120 H (70-110) mg/dL POC Glucose (mg/dL) 213 H (75-99) mg/dL ALT 170 H (8-44) U/L Alkaline Phosphatase 176 H (41-126) U/L Total Protein 5.2 L (6.2-8.2) g/dL Albumin 3.40 L (3.80-4.90) g/dL 08/28/20 08/28/20 08/29/20 Range/Units 17:22 20:34 07:21 PT (9.9-11.9) sec INR (0.90-1.11) BUN (9.0-27.0) mg/dL BUN/Creatinine Ratio (12.00-20.00) Ratio Glucose (70-110) mg/dL POC Glucose (mg/dL) 124 H 233 H 156 H (75-99) mg/dL ALT (8-44) U/L Alkaline Phosphatase (41-126) U/L Total Protein (6.2-8.2) g/dL Albumin (3.80-4.90) g/dL
[2020-08-29 11:22] LABS: Glucose,Whole Blood 189 mg/dL (75-99)
[2020-08-29] MEDS: hydrALAZINE HCL 50 MG TAB PO SCH ×2 (11:53→21:30)
--- NOTE | 2020-08-29 14:10 | P.PN ---
Subjective Progress Note Date: 08/29/20 Principal diagnosis: Acute hypoxic respiratory failure secondary to CoVID 19 pneumonitis The patient is seen today 08/27/2020 in follow-up on the regular medical floor. She was admitted for acute hypoxic respiratory failure secondary to CoVID 19 pneumonitis. She was outside the window for Remdesivir. She did receive 2 units of convalescent plasma. She remains awake and alert in no acute distress. Confused to place. Calling out for her father. Currently requiring 8 L high flow nasal cannula to maintain O2 saturations in the 90s. Chest x-ray continues to show diffuse bilateral airspace disease. White count 7.2. Hemoglobin 8.3. Lymphocytes 0.5. INR 2.6. D-dimer 0.55. Sodium 147. Potassium 4.8. Creatinine 0.7. LDH 541. Remains on IV Solu-Medrol, Pepcid, vitamin supplements. Anticoagulated with warfarin. Patient is seen today 08/28/2020 follow-up on the regular medical floor. She is currently resting quite comfortably in bed. Awake and alert in no acute distress. States she is breathing easier today today. Remains on 10 L high flow nasal cannula. She's afebrile. White count 9.4. Hemoglobin 8.4. INR 2.37. Sodium 143. Potassium 5.0. Creatinine 0.8. She remains on vitamin supplements, Pepcid, melatonin, IV Solu-Medrol, anticoagulated with warfarin. The patient is seen today 01/27/2021 follow-up on the regular medical floor. She is awake and alert in no acute distress. Resting fairly comfortably in bed. Maintaining O2 saturations in the 90s on 8 L high flow nasal cannula. Currently afebrile. Hemodynamically stable. INR 2.65. Blood glucose 156. She remains on vitamin supplements, Pepcid, melatonin, IV Solu-Medrol, anticoagu lated with warfarin. Computed tomography scan of the brain reveals no new acute intracranial hemorrhage or midline shift. Left-sided postsurgical changes redemonstrated. There is [id number] diffuse age-related cerebral atrophy and chronic small vessel ischemic changes redemonstrated. No changes compared to previous CT 2 weeks ago. Objective - Vital Signs Vital signs: Vital Signs Temp 99.0 F 08/29/20 11:18 Pulse 66 08/29/20 11:18 Resp 16 01/15/21 11:18 BP 129/72 08/29/20 11:18 Pulse Ox 94 L 08/29/20 11:18 Intake & Output 08/28/20 08/29/20 08/29/20 18:59 06:59 18:59 Intake Total 1920 100 100 Output Total 820 0 Balance 1100 100 100 Weight 100.5 kg 101 kg Intake: IV 120 Dextrose 5%-0.45% NaCl 1, 120 000 ml @ 20 mls/hr IV . Q24H TABATHA Rx#:[id number] Intake, IV Titration 600 Amount Dextrose 5% in Water 1, 600 000 ml @ 50 mls/hr IV . Q20H TABATHA Rx#:[id number] Oral 1200 100 100 Output: Urine 820 0 Other: Voiding Method Indwelling Catheter Indwelling Catheter Indwelling Catheter # Voids 1 0 # Bowel Movements 0 - Exam Gen: This is a pleasant 63-year-old female patient on 8 L high flow nasal cannula. O2 saturation is in the 90s. HEENT: Head is atraumatic, normocephalic. Pupils equal, round. Sclerae is anicteric. NECK: Supple. No JVD. No lymphadenopathy. No thyromegaly. LUNGS: Scattered rhonchi. No wheezes. Mild intercostal retractions. HEART: Regular rate and rhythm. 3/6 systolic murmur. ABDOMEN: Soft. Bowel sounds are present. No masses. No tenderness. Moses catheter in place. EXTREMITIES: No pedal edema. No calf tenderness. NEUROLOGICAL: Patient is awake, alert and oriented x3. Cranial nerves 2 through 12 are grossly intact. Psychiatric: Normal mood, affect and normal mental status examination. Skin: No rashes - Labs CBC & Chem 7: 08/28/20 06:22 08/28/20 06:22 Labs: Abnormal Lab Results - Last 24 Hours (Table) 08/28/20 08/28/20 08/29/20 Range/Units 17:22 20:34 06:01 PT 26.6 H (9.9-11.9) sec INR 2.65 H (0.90-1.11) POC Glucose (mg/dL) 124 H 233 H (75-99) mg/dL 08/29/20 08/29/20 Range/Units 07:21 11:20 PT (9.9-11.9) sec INR (0.90-1.11) POC Glucose (mg/dL) 156 H 189 H (75-99) mg/dL Assessment and Plan Assessment: 1 Acute hypoxic respiratory failure secondary to CoVID 19 pneumonia. Outside the window for Remdesivir. Did receive 2 units of convalescent plasma 2 Recent history of hemorrhagic stroke with left subdural hematoma status post left frontal craniotomy. Computed tomography scan of the brain performed today 08/29/2020 revealed no acute intracranial hemorrhage or midline shift. Left- sided postsurgical changes redemonstrated. There is [id number] diffuse age-related cerebral atrophy and chronic small vessel ischemic changes. No significant change from recent computed tomography scan 13 days ago. 3 Acute toxic metabolic encephalopathy 4 History of pulmonary embolism and DVT. On Lovenox. 5 History of underlying coronary artery disease. 6 Benign essential hypertension. 7 Hypothyroidism. 8 Dyslipidemia. 9 Paroxysmal atrial fibrillation, presently in sinus rhythm. Anticoagulated with warfarin. Plan: The patient was seen and evaluated by Dr. Nava Continue the current treatment plan Titrate down the FiO2 as tolerated Discharge planning in place for ECF 09/01/2020 We'll continue to follow I, the cosigning physician, performed a history & physical examination of the patient. Lungs sounds with bilateral scattered rhonchi. Maintaining good O2 saturations in the 90s on 8 L high flow nasal cannula. I discussed the assessment and plan of care with my nurse practitioner, Janneth Andrew. I attest to the above note as dictated by her.
[2020-08-29] MEDS: DEXTROSE 5% IN WATER 1,000 ML IV SCH (17:15)
[2020-08-29 17:34] LABS: Glucose,Whole Blood 195 mg/dL (75-99)
[2020-08-29] MEDS ORDERED: WARFARIN 1.5 MG TAB PO ONE (18:00)
[2020-08-29 20:20] LABS: Glucose,Whole Blood 309 mg/dL (75-99)
[2020-08-29] MEDS: HYDROcodone/APAP 5-325MG 1 EACH TAB PO PRN (21:28)
[2020-08-29] MEDS: MELATONIN 5 MG TABLET PO SCH (21:31)
[2020-08-29] MEDS: QUEtiapine 25 MG TAB PO SCH (21:32)
[2020-08-30] MEDS: methylPREDNISolone SOD SUCCI 40 MG/ML 1 ML VIAL IV SCH ×4 (01:00→18:20)
[2020-08-30] MEDS: LEVOTHYROXINE 75 MCG TAB PO SCH (05:57)
[2020-08-30] MEDS: DEXTROSE 5% IN WATER 1,000 ML IV SCH ×2 (06:03→22:36)
[2020-08-30 07:42] LABS: Glucose,Whole Blood 140 mg/dL (75-99)
[2020-08-30] MEDS: INSULIN DETEMIR (LEVEMIR) 100 UNIT/ML SYR SQ SCH ×2 (09:25→21:57)
[2020-08-30] MEDS: INSULIN ASPART (NovoLOG) 100 UNIT/ML VIAL SQ SCH ×4 (09:25→22:22)
[2020-08-30] MEDS: METOPROLOL TARTRATE 50 MG TAB PO SCH ×2 (09:25→21:56)
[2020-08-30] MEDS: THIAMINE 100 MG TAB PO SCH (09:25)
[2020-08-30] MEDS: FAMOTIDINE 20 MG TAB PO SCH ×2 (09:26→21:56)
[2020-08-30] MEDS: ZINC SULFATE 220 MG CAP PO SCH (09:26)
[2020-08-30] MEDS: amLODIPine 5 MG TAB PO SCH ×2 (09:26→21:57)
[2020-08-30] MEDS: AMIODARONE 200 MG TAB PO SCH ×2 (09:26→21:57)
[2020-08-30] MEDS: DOCUSATE 100 MG CAP PO SCH (09:26)
[2020-08-30] MEDS: CYANOCOBALAMIN 500 MCG TAB PO SCH (09:26)
[2020-08-30] MEDS: ASCORBIC ACID 500 MG TAB PO SCH (09:26)
[2020-08-30] MEDS: hydrALAZINE HCL 50 MG TAB PO SCH ×2 (09:27→21:56)
[2020-08-30] MEDS: VENLAFAXINE HCL ER 150 MG CAP PO SCH (09:27)
[2020-08-30] MEDS: CHOLECALCIFEROL 1,000 UNIT TAB PO SCH (09:27)
[2020-08-30] MEDS: levETIRAcetam 500 MG TAB PO SCH ×2 (09:27→21:56)
--- NOTE | 2020-08-30 10:44 | P.PN ---
Subjective Progress Note Date: 08/30/20 HISTORY OF PRESENT ILLNESS Ms. Sutherland is a 64 years old female patient of Dr. Siu with past medical history of coronary artery disease, hypertension, history of DVT and pulmonary embolism in 2002, fibromyalgia, asthma who presented to the hospital with worsening shortness of breath associated with change in mental status for the past 24 hours. Patient was in [facility] for subdural hemorrhage associated with meningioma in the left frontal lobe. Patient underwent left frontal craniotomy and was discharged on 08/13 on seizure precaution medication and pain medication. Patient's daughter is an RN who checked her oxygen at home which was saturating at 38%. Patient was brought to the hospital by EMS as patient was found unresponsive with her oxygen in the 40s and was placed on a BiPAP. Patient is unable to provide any history as she Is confused. Called patient's who stated that patient was doing well post discharge until last night when she became short of breath and confused. Patient did have acute stroke from the subdural hemorrhage causing right arm and right leg weakness associated with a phase ER. Patient was in the hospital for 6 weeks and recovered from both right upper and lower extremity weakness and a phasia. Patient was smoking at home post discharge. She was evaluated by her daughter who is an RN who insisted on calling EMS as she did not appear well.On evaluation in the ER patient was found to have bilateral groundglass opacities concerning for call with pneumonia. Vital suggested temp of 97.9 pulse 81 blood pressure 122/78 respiratory rate of 20. Call with 19 was positive. WBC 5.8 hemoglobin 10.4. ABG was obtained with a pO2 of 55 pCO2 of 44 . Patient's sodium is 146 chloride 117 BUN 48 creatinine 1.01 glucose 110 AST 74 8079 magnesium 2.5 proBNP 1560 LDH 2556 troponin negative 1 CRP 220. INR is elev ated at 2.6. Pulmonary consult was placed. Patient placed on Solu-Medrol 60 every 6, zinc sulfide 220 vitamin C 1000 mg daily. EKG was normal sinus rhythm with no ST or segment depression or elevation. 1/3 patient assessed in ICU currently on BiPAP. Patient is oriented 2. Patient was not able to tolerate being off BiPAP for even a few minutes to take her medications. Patient is currently on 100% FiO2 on BiPAP saturating at 91- 92% vitals otherwise stable temp of 98.8 pulse 75 respiratory rate 27 blood pressure 129/53. Patient has a drop of hemoglobin from 10.4-8 today with MCV 103. INR is 1.8 subtherapeutic, elevated APTT 50 in origin and d-dimer 0.97. PCO2 is 46 pO2 71 bicarb 28 with a pH of 7.37, sodium 146 chloride 1:15, BUN 48 creatinine 0.87 glucose 125. Alkaline phosphatase has increased to 215 from 1:15, AST increased from 7 to 151 ALT increased from 79 to 201. Ultrasound abdomen ordered to evaluate for liver and gallbladder. 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 Patient is unable to take oral medication will switch patient's medication to IV today 08/18: Patient remains in the intensive care unit on BiPAP. She maintains a pulse ox of 91-96% but quickly drops if BiPAP is removed. She's been afebrile, heart rate 73, blood pressure 146/75. Repeat blood work reveals WBC 6.3, hemoglobin 10, platelet count 173. INR is 3.1. Fibrinogen 572, d-dimer 1.09. Sodium 152, potassium 4.4, chloride 117, CO2 31, BUN 48 and creatinine 0.89. TSH 0.305. ProBNP 1290. C-reactive protein 87.9. CK 22, LDH 2721. Blood sugars running in the 120s and 130s. Repeat chest x-ray reveals continued bilateral airspace disease. Patient has been seen by neurology with recommendations to continue Keppra 500 mg twice daily for seizure prophylaxis. Records from [facility] to be obtained. Patient was started on desmopressin 0.05 mg 1 tablet twice a day for central diabetes insipidus. Vitamin B-12 and folate levels ordered. TSH and ammonia level. Thiamine was started. Patient was also seen by nephrology for hypernatremia and started on normal saline at 50 mL per hour for now. 08/19: Patient remains in the intensive care unit oxygen is down to 80% on BiPAP with pulse ox running between 89 and 92. She has been afebrile, heart rate 73, blood pressure 101/59. Pulse ox drops if BiPAP is removed. We will start a soft diet as she is stating she is hungry. Midline was placed yesterday. Repea t blood work reveals WBC 6.5, hemoglobin 9.2, platelet count 161. D-dimer 2.63, fibrinogen 503, INR 4.1. Creatinine 0.81. Blood sugars run between 146 and 225. Repeat chest x-ray reveals slight improvement of diffuse infiltrate can be compatible with atypical pneumonia. Patient received DDAVP yesterday. She is currently on D5W at 60 mL per hour. She remains on Solu-Medrol 60 mg IV every 6 hours. 08/20: Patient remains in intensive care unit. She is on BiPAP and desats quickly if this is removed down to 75. She is confused and has pulled off her BiPAP. She is able to a very little today due to desaturation. Daughter has been updated during the night of the patient's status. She has been afebrile, heart rate 80, respiratory rate 26-44, blood pressure 169/88, pulse ox 92% on 70% FiO2 on BiPAP. Repeat blood work reveals Gaby BC 6.3, hemoglobin 9.6, platelet count 158. Lymphocytes are 0.7. BUN 36 creatinine 0.72. Blood sugars running between 130 348. Ferritin 2476. AST 92, ALT 198, alkaline phosphatase 294. LDH 2668. CK 0.1, C-reactive protein 22.7. Urine culture is showing gram- negative bacilli. Blood culture no growth after 72 hours 2 specimens. Repeat chest x-ray reveals cardiomegaly with bilateral multifocal acute infiltrates consistent with COVID-19. Patient is continued on IV fluids of D5W at 60 mL per hour and change today to half-normal saline. Patient received 1 dose of IV Lasix this morning. Desmopressin was discontinued as central diabetes insipidus was ruled out. 08/21: The patient is more alert today. She is now on high flow AirVo with FiO2 of 85%. Patient was able to tolerate chopped diet as morning. She was started yesterday on TPN. She is complaining of right shoulder pain which is of chronic nature and [place] resumed as well as lidocaine cream started. Patient has been afebrile, heart rate 82, blood pressure 156/75. Respiratory rate 24. Pulse ox 93% on FiO2 of 85%. nurse monitoring is a sinus rhythm. Repeat chest x-ray r eveals stable bilateral lung infiltrates. Repeat blood work reveals WBC 7.4, hemoglobin 9.5. Creatinine 0.73. Blood sugars between 148 and 165. Liver function tests remain elevated with total bilirubin 1, AST 78, ALT 233, alkaline phosphatase 286. LDH is 2566. CK less than 20. C-reactive protein 10.8. Urine culture finalized with E. coli. Blood cultures showing no growth. 08/22: Patient remains in the intensive care unit. Oxygen is down to 70% with pulse ox of 95%. Heart rate is 140 and patient went into atrial fibrillation currently transitioned to oral amiodarone and Cardizem drip. TPN was started and patient ate 50% of her breakfast this morning. She has been afebrile. Blood pressure 147/83. Repeat blood work reveals WBC 8, hemoglobin 9.4. Blood sugars running between 228 and 300. Electrolytes normal, creatinine 0.72. Phosphorus 3.1, magnesium 2.4. Ferritin 2011, total bilirubin 0.6, AST 75, ALT 288, alkaline phosphatase 282. LDH 2469. CK less than 20. 08/23: Patient remains in the intensive care unit but has progressed very well over the past 24 hours and is scheduled for transfer out to the [facility] floor. Repeat chest x-ray reveals stable diffuse bilateral infiltrates. Dr. English has recommended continued treatment for blood pressure and his blood pressure is stable, clonidine patch can be discontinued. Patient continued on beta josh and amiodarone for another 72 hours and then amiodarone dose can be decreased. The patient can be switched back to oral Coumadin. She has been afebrile, heart rate 69, blood pressure 133/71, pulse ox 95% on high flow nasal cannula 15 L. WBC 9.0, hemoglobin 8.2. Electrolytes normal, BUN 42 and creatinine 0.77. Blood sugars running between 179 and 291. LDH 1980. Total bilirubin 0.5. AST 37, ALT 211, alkaline phosphatase 258. 08/24: Patient continues to have cough. Patient has been afebrile, heart rate 80, blood pressure 138/79, pulse ox 94-97% on 15 L high flow nasal cannula. INR is 1.2. Patient was started on Coumadin last night of 5 mg, pharmacy dosing. Blood sugar 129 244.She is very much looking forward to getting home eventually. She is agreeable to subacute rehab and PT has recommended subacute rehab. We will plan for his assistant accounting manager/social psychologist following up tomorrow. 08/25: Patient's pain status continues to improve. She has been afebrile, heart rate 76, blood pressure 163/74, pulse ox is 98% on 10 L high flow nasal cannula. WBC 8.6, hemoglobin 9.3, platelet count 226. Patient denies any abdominal pain. She is tolerating diet. She is continued on IV Solu-Medrol. INR today 1.7 and pharmacy is dosing Coumadin. Sodium 147, potassium 5.4, chloride 113, CO2 27.5. BUN 55 and creatinine 1. Blood sugars run between 137-188. Liver function tests remain elevated with AST 51, ALT 342, alkaline phosphatase 265. Nephrology has discontinued potassium supplement and considering D5W tomorrow sodium remains elevated. PT and OT to start working with the patient is a need for subacute rehab. 08/26: She has been afebrile, heart rate 75, blood pressure 106/76, pulse ox 90- 96% on 8 L high flow nasal cannula. Blood sugars running between 150 and 218. Repeat INR 2.29 and Lovenox will be discontinued. Patient continues to complain of weakness. She denies having any diarrhea. Patient is awake and alert. No mental status changes. manager business banking is in process of making discharge plans with patient's . 08/27: Patient has been afebrile, heart rate 78, blood pressure 133/75, pulse ox 92% on 8 L nasal cannula. Patient states that she is feeling so-so but better since she is bit on the MedSurg floor. The patient will update her to call social work regarding discharge planning. INR is 2.6. W BC 7.2, hemoglobin 8.3, platelet count 282. Blood sugars running between 118 197. Sodium 147, potassium 4.8. BUN 41 creatinine 0.7. ALT 189, alkaline phosphata se 192, LDH 541, C-reactive protein 0.9. D-dimer 0.55. 08/28: Patient has no new complaints. Respiratory status is slowly improving. Her pulse ox today is at 90% on 10 L nasal cannula, afebrile, heart rate 76, blood pressure 156/77. WBC 9.4, hemoglobin 8.4, platelet count 296. Blood sugars run between 132 and 239. Electrolytes are normal, creatinine 0.8. AST 29, ALT 170, alkaline phosphatase 176. Patient's has been contacted and updated regarding patient's progress. Anticipate discharge once oxygen need is down to 6 L. 08/29: Patient's oxygen was increased to 10 L high flow nasal cannula. It appears that she did not have any respiratory distress that would warrant this. Discussed with the nurse this morning that we will need to get a back to 8 and our goal will be 6 or below so that she can go to the longterm on Tuesday. Patient's was updated via phone call by Dr. Ariza yesterday. Our discharge plan is for [facility] or [facility] on Tuesday. Patient has been afebrile, heart rate 71, blood pressure 168/77. Pulse ox 97% on 8 L high flow nasal cannula. INR is 2.65 and pharmacy is dosing. Blood sugars running between 156 and 233. Norvasc has been increased to twice daily 5 mg yesterday. Hydralazine will be resumed at 50 mg twice daily for blood pressure control. Patient is normally on hydralazine 100 mg 3 times daily. 08/30: Attempted to wean patient off the high flow nasal cannula. However she was intolerant pulse ox dropped to the 60s. She is currently on a 100% Ventimask with [address] cann[address] in place. Due to the hypoxia patient became c onfused and has sitter at the bedside. Her lungs sound still show congestion specifically at the left base with rhonchi and no wheezes. Patient remains afebrile, pulse rate 75, respirations 16 with shortness of breath noted with activity, blood pressure 147/73, pulse oxing 100% on a nonrebreather with 15 L high flow oxygen. REVIEW OF SYSTEMS Constitutional: No fever, no chills, no night sweats. No weight change. Reports continued weakness, reports fatigue, reports daytime sleepiness. EENT: No headache. No blurred vision or double vision, no loss of vision. No loss of Hearing, no ringing in the ears, no dizziness. No nasal drainage or congestion. No epistaxis. No sore throat. Lungs: Reports continued shortness of breath improving, reports cough improving, no sputum production. No wheezing. Cardiovascular: No chest pain, no lower extremity edema. No palpitations. No paroxysmal nocturnal dyspnea. No orthopnea. No lightheadedness or dizziness. No syncopal episodes. Abdominal: No abdominal pain. No nausea, vomiting. No diarrhea. No constipation. No bloody or tarry stools. Reports increased appetite. Genitourinary: No dysuria, increased frequency, urgency. No urinary retention. Moses catheter in place. Musculoskeletal: No myalgias. No muscle weakness, no gait dysfunction, no frequent falls. No back pain. No neck pain. Integumentary: No wounds, no lesions. No rash or pruritus. No unusual bruising. Neurologic: No aphasia. No facial droop. No change in mentation. No head injury. No headache. No paralysis. No paresthesia. Psychiatric: No depression. No anxiety. Endocrine: Reports abnormal blood sugars. No weight change. PHYSICAL EXAMINATION Gen: This is a 63-year-old female. She is seen today on the [facility] floor. Patient is to be in no acute respiratory distress at rest. HEENT: Head is atraumatic, normocephalic. Pupils equal, round. Sclerae is anicteric. NECK: Supple. No JVD. No lymphadenopathy. No thyromegaly. LUNGS: Scattered rhonchi. No wheezes. Mild intercostal retractions. HEART: Regular rate and rhythm. 3/6 systolic murmur. ABDOMEN: Soft. Bowel sounds are present. No masses. No tenderness. Moses catheter in place. EXTREMITIES: No pedal edema. No calf tenderness. NEUROLOGICAL: Patient is awake, alert and oriented 3. No neuro deficits noted. ASSESSMENT AND PLAN 1. Acute hypoxic respiratory failure secondary to COVID-19 Pneumonia and COPD exacerbation. Consult with pulmonary medicine appreciated. Continue oxygen therapy. 2. COVID-19 pneumonia. Continue vitamin C, vitamin D, zinc, Solu-Medrol 40 mg IV every 6 hours, Coumadin. 3. COPD exacerbation. Continue Solu-Medrol 40 mg IV every 6 hours, pulmonary consult appreciated. 4. Acute hemorrhagic stroke with acute left subdural hemorrhage with benign tumor status post left frontal craniotomy. Patient was discharged on August 13 from [facility]/rehab facility. Continue Keppra and steroids. Consult with neurology appreciated. 5. Acute toxic metabolic encephalopathy secondary to Covid 19, hyponatremia. Neurology consult appreciated. Continue Keppra for prophylaxis seizure activity. Hold Lyrica. [place] resumed for shoulder pain. 6. Central diabetes insipidus ruled out. 7. History of pulmonary embolism and DVT. Continue Coumadin, pharmacy dosing. Monitor INR daily. 8. History of coronary artery disease. Continue Lopressor 9. Hypertension. Continue Lopressor 50 mg twice daily, amlodipine 5 mg twice daily. Resume hydralazine at 50 mg twice daily. hydralazine 10 mg IV push every 6 hours as needed 10. Hypothyroidism. Continue levothyroxine 37.5 mg daily. 11. Hyperlipidemia. Hold pravastatin. 12. Recurrent depression. Continue venlafaxine 150 mg oral daily. Seroquel 25 mg at bedtime. 13. GI prophylaxis. Pepcid 20 mg oral every 12 hours. 14. DVT prophylaxis. Coumadin 15. UTI. Patient started on Rocephin. 16. Chronic right shoulder pain. [place] and lidocaine cream. 17. Severe protein calorie malnutrition. TPN has been discontinued. Continue oral diet. 18. Hyperglycemia secondary to steroids. Hemoglobin A1c is 5.6. Levemir 12 units twice daily, continue NovoLog scale before meals and at bedtime. 19. Hypernatremia. Nephrology is following. DISCHARGE PLAN Subacute rehab possibly on Tuesday. Impression and plan of care have been directed as dictated by the signing physician. Pauline Turner nurse practitioner acting as scribe for signing physician. Objective - Vital Signs Vital signs: Vital Signs Temp 97.9 F 08/30/20 04:15 Pulse 75 08/30/20 04:15 Resp 16 08/30/20 07:40 BP 147/73 08/30/20 04:15 Pulse Ox 100 08/30/20 04:15 Intake & Output 08/29/20 08/30/20 08/30/20 18:59 06:59 18:59 Intake Total 1260 Output Total 350 2200 Balance 910 -2200 Weight 100.5 kg Intake: Intake, IV Titration 200 Amount Dextrose 5% in Water 1, 200 000 ml @ 50 mls/hr IV . Q20H TABATHA Rx#:[id number] Oral 1060 Output: Urine 350 2200 Uretheral ([place]) 1100 Other: Voiding Method Indwelling Catheter Indwelling Catheter Indwelling Catheter # Voids 4 - Labs CBC & Chem 7: 08/28/20 06:22 08/28/20 06:22 Labs: Abnormal Lab Results - Last 24 Hours (Table) 08/29/20 08/29/20 08/29/20 Range/Units 11:20 17:33 20:18 POC Glucose (mg/dL) 189 H 195 H 309 H (75-99) mg/dL 08/30/20 Range/Units 07:40 POC Glucose (mg/dL) 140 H (75-99) mg/dL
[2020-08-30 12:12] LABS: Glucose,Whole Blood 155 mg/dL (75-99)
[2020-08-30 12:40] LABS: INR 2.81 (0.90-1.11); Prothrombin Time 28.1 sec (9.9-11.9)
--- NOTE | 2020-08-30 12:58 | P.PN ---
Subjective Progress Note Date: 08/30/20 Principal diagnosis: Acute hypoxic respiratory failure secondary to CoVID 19 pneumonitis The patient is seen today 08/27/2020 in follow-up on the regular medical floor. She was admitted for acute hypoxic respiratory failure secondary to CoVID 19 pneumonitis. She was outside the window for Remdesivir. She did receive 2 units of convalescent plasma. She remains awake and alert in no acute distress. Confused to place. Calling out for her father. Currently requiring 8 L high flow nasal cannula to maintain O2 saturations in the 90s. Chest x-ray continues to show diffuse bilateral airspace disease. White count 7.2. Hemoglobin 8.3. Lymphocytes 0.5. INR 2.6. D-dimer 0.55. Sodium 147. Potassium 4.8. Creatinine 0.7. LDH 541. Remains on IV Solu-Medrol, Pepcid, vitamin supplements. Anticoagulated with warfarin. Patient is seen today 08/28/2020 follow-up on the regular medical floor. She is currently resting quite comfortably in bed. Awake and alert in no acute distress. States she is breathing easier today today. Remains on 10 L high flow nasal cannula. She's afebrile. White count 9.4. Hemoglobin 8.4. INR 2.37. Sodium 143. Potassium 5.0. Creatinine 0.8. She remains on vitamin supplements, Pepcid, melatonin, IV Solu-Medrol, anticoagulated with warfarin. The patient is seen today 01/27/2021 follow-up on the regular medical floor. She is awake and alert in no acute distress. Resting fairly comfortably in bed. Maintaining O2 saturations in the 90s on 8 L high flow nasal cannula. Currently afebrile. Hemodynamically stable. INR 2.65. Blood glucose 156. She remains on vitamin supplements, Pepcid, melatonin, IV Solu-Medrol, anticoagu lated with warfarin. Computed tomography scan of the brain reveals no new acute intracranial hemorrhage or midline shift. Left-sided postsurgical changes redemonstrated. There is [id number] diffuse age-related cerebral atrophy and chronic small vessel ischemic changes redemonstrated. No changes compared to previous CT 2 weeks ago. The patient is seen today 08/30/2020 follow-up on the regular medical floor. He is currently resting in bed. She is now requiring 15 L high flow nasal cannula in addition to a nonrebreather mask. Increased oxygen requirement since yesterday. He is less responsive. INR 2.81. Glucose 155. She remains on vitamin supplements, Pepcid, melatonin, IV Solu-Medrol, anticoagulated with warfarin. Objective - Vital Signs Vital signs: Vital Signs Temp 97.9 F 08/30/20 04:15 Pulse 75 08/30/20 04:15 Resp 16 08/30/20 07:40 BP 147/73 08/30/20 04:15 Pulse Ox 100 08/30/20 04:15 Intake & Output 08/29/20 08/30/20 08/30/20 18:59 06:59 18:59 Intake Total 1260 Output Total 350 2200 Balance 910 -2200 Weight 100.5 kg Intake: Intake, IV Titration 200 Amount Dextrose 5% in Water 1, 200 000 ml @ 50 mls/hr IV . Q20H [facility] Rx#:[id number] Oral 1060 Output: Urine 350 2200 Uretheral ([facility]) 1100 Other: Voiding Method Indwelling Catheter Indwelling Catheter Indwelling Catheter # Voids 4 - Exam Gen: This is a pleasant 63-year-old female patient, alertness waxes and wanes, on 15 L high flow nasal cannula and nonrebreather mask. O2 saturation is in the 90s. HEENT: Head is atraumatic, normocephalic. Pupils equal, round. Sclerae is anicteric. NECK: Supple. No JVD. No lymphadenopathy. No thyromegaly. LUNGS: Scattered rhonchi. No wheezes. Mild intercostal retractions. HEART: Regular rate and rhythm. 3/6 systolic murmur. ABDOMEN: Soft. Bowel sounds are present. No masses. No tenderness. Moses catheter in place. EXTREMITIES: No pedal edema. No calf tenderness. NEUROLOGICAL: Patient is awake, alert and oriented x3. Cranial nerves 2 through 12 are grossly intact. Psychiatric: Arousable, Normal mood, affect and normal mental status examination. Skin: No rashes - Labs CBC & Chem 7: 08/28/20 06:22 08/28/20 06:22 Labs: Abnormal Lab Results - Last 24 Hours (Table) 08/29/20 08/29/20 08/30/20 Range/Units 17:33 20:18 06:14 PT 28.1 H (9.9-11.9) sec INR 2.81 H (0.90-1.11) POC Glucose (mg/dL) 195 H 309 H (75-99) mg/dL 08/30/20 08/30/20 Range/Units 07:40 12:04 PT (9.9-11.9) sec INR (0.90-1.11) POC Glucose (mg/dL) 140 H 155 H (75-99) mg/dL Assessment and Plan Assessment: 1 Acute hypoxic respiratory failure secondary to CoVID 19 pneumonia. Outside the window for Remdesivir. Did receive 2 units of convalescent plasma. Currently required 15 L high flow along with a nonrebreather mask. 2 Recent history of hemorrhagic stroke with left subdural hematoma status post left frontal craniotomy. Computed tomography scan of the brain performed today 08/29/2020 revealed no acute intracranial hemorrhage or midline shift. Left- sided postsurgical changes redemonstrated. There is [id number] diffuse age-related cerebral atrophy and chronic small vessel ischemic changes. No significant change from recent computed tomography scan 13 days ago. 3 Acute toxic metabolic encephalopathy 4 History of pulmonary embolism and DVT. On Lovenox. 5 History of underlying coronary artery disease. 6 Benign essential hypertension. 7 Hypothyroidism. 8 Dyslipidemia. 9 Paroxysmal atrial fibrillation, presently in sinus rhythm. Anticoagulated with warfarin. Plan: The patient was seen and evaluated by Dr. Nava Continue the current treatment plan Titrate down the FiO2 as tolerated Chest x-ray in a.m. Prognosis is guarded Discharge planning in place for ECF 09/01/2020 We'll continue to follow I, the cosigning physician, performed a history & physical examination of the patient. Lungs sounds with bilateral scattered rhonchi. Maintaining good O2 saturations in the 90s on 15 L high flow nasal cannula with a nonrebreather mask. I discussed the assessment and plan of care with my nurse practitioner, Janneth Andrew. I attest to the above note as dictated by her.
[2020-08-30 17:21] LABS: Glucose,Whole Blood 126 mg/dL (75-99)
[2020-08-30] MEDS ORDERED: WARFARIN 1.25 MG TAB PO ONE (18:00)
[2020-08-30] MEDS: QUEtiapine 25 MG TAB PO SCH (21:56)
[2020-08-30] MEDS: MELATONIN 5 MG TABLET PO SCH (21:57)
[2020-08-30 22:03] LABS: Glucose,Whole Blood 154 mg/dL (75-99)
[2020-08-31] MEDS: methylPREDNISolone SOD SUCCI 40 MG/ML 1 ML VIAL IV SCH ×5 (00:13→23:44)
[2020-08-31] MEDS: LEVOTHYROXINE 75 MCG TAB PO SCH (05:38)
[2020-08-31 07:22] LABS: Glucose,Whole Blood 171 mg/dL (75-99)
--- NOTE | 2020-08-31 08:20 | XR ---
EXAMINATION TYPE: XR chest 1V portable DATE OF EXAM: 08/31/2020 COMPARISON: Chest x-ray 08/27/2020 HISTORY: Covid pneumonia TECHNIQUE: Single frontal view of the chest is obtained. FINDINGS: Findings are similar. There is bilateral airspace disease. Cardiac mediastinal silhouette is stable. There is no pneumothorax or sizable effusion. Right-sided PICC line is present, distal tip is overlying the superior vena cava. Lung volumes are low and the patient is rotated. There are over lying leads. IMPRESSION: Correlate for pneumonia, edema, stable cardiomegaly
[2020-08-31] MEDS: INSULIN DETEMIR (LEVEMIR) 100 UNIT/ML SYR SQ SCH ×2 (10:04→21:57)
[2020-08-31] MEDS: INSULIN ASPART (NovoLOG) 100 UNIT/ML VIAL SQ SCH ×4 (10:05→21:57)
[2020-08-31] MEDS: DOCUSATE 100 MG CAP PO SCH (10:06)
[2020-08-31] MEDS: ASCORBIC ACID 500 MG TAB PO SCH (10:06)
[2020-08-31] MEDS: VENLAFAXINE HCL ER 150 MG CAP PO SCH (10:06)
[2020-08-31] MEDS: amLODIPine 5 MG TAB PO SCH ×2 (10:06→21:59)
[2020-08-31] MEDS: CYANOCOBALAMIN 500 MCG TAB PO SCH (10:07)
[2020-08-31] MEDS: ZINC SULFATE 220 MG CAP PO SCH (10:07)
[2020-08-31] MEDS: CHOLECALCIFEROL 1,000 UNIT TAB PO SCH (10:07)
[2020-08-31] MEDS: hydrALAZINE HCL 50 MG TAB PO SCH ×2 (10:07→21:59)
[2020-08-31] MEDS: METOPROLOL TARTRATE 50 MG TAB PO SCH ×2 (10:08→21:59)
[2020-08-31] MEDS: levETIRAcetam 500 MG TAB PO SCH ×2 (10:08→22:00)
[2020-08-31] MEDS: AMIODARONE 200 MG TAB PO SCH ×2 (10:08→21:59)
[2020-08-31] MEDS: FAMOTIDINE 20 MG TAB PO SCH ×2 (10:08→21:59)
[2020-08-31] MEDS: THIAMINE 100 MG TAB PO SCH (10:08)
[2020-08-31] MEDS: SODIUM CHLORIDE 0.9% 1,000 ML IV SCH ×2 (10:09→23:44)
[2020-08-31] MEDS ORDERED: FUROSEMIDE 10 MG/ML 4 ML VIAL IV STA (11:03)
[2020-08-31 11:16] LABS: Glucose,Whole Blood 197 mg/dL (75-99)
--- NOTE | 2020-08-31 11:30 | P.PN ---
Subjective Progress Note Date: 08/31/20 HISTORY OF PRESENT ILLNESS Ms. Sutherland is a 64 years old female patient of Dr. Siu with past medical history of coronary artery disease, hypertension, history of DVT and pulmonary embolism in 2002, fibromyalgia, asthma who presented to the hospital with worsening shortness of breath associated with change in mental status for the past 24 hours. Patient was in [facility] for subdural hemorrhage associated with meningioma in the left frontal lobe. Patient underwent left frontal craniotomy and was discharged on 08/13 on seizure precaution medication and pain medication. Patient's daughter is an RN who checked her oxygen at home which was saturating at 38%. Patient was brought to the hospital by EMS as patient was found unresponsive with her oxygen in the 40s and was placed on a BiPAP. Patient is unable to provide any history as she Is confused. Called patient's who stated that patient was doing well post discharge until last night when she became short of breath and confused. Patient did have acute stroke from the subdural hemorrhage causing right arm and right leg weakness associated with a phase ER. Patient was in the hospital for 6 weeks and recovered from both right upper and lower extremity weakness and a phasia. Patient was smoking at home post discharge. She was evaluated by her daughter who is an RN who insisted on calling EMS as she did not appear well.On evaluation in the ER patient was found to have bilateral groundglass opacities concerning for call with pneumonia. Vital suggested temp of 97.9 pulse 81 blood pressure 122/78 respiratory rate of 20. Call with 19 was positive. WBC 5.8 hemoglobin 10.4. ABG was obtained with a pO2 of 55 pCO2 of 44 . Patient's sodium is 146 chloride 117 BUN 48 creatinine 1.01 glucose 110 AST 74 8079 magnesium 2.5 proBNP 1560 LDH 2556 troponin negative 1 CRP 220. INR is elev ated at 2.6. Pulmonary consult was placed. Patient placed on Solu-Medrol 60 every 6, zinc sulfide 220 vitamin C 1000 mg daily. EKG was normal sinus rhythm with no ST or segment depression or elevation. 1/3 patient assessed in ICU currently on BiPAP. Patient is oriented 2. Patient was not able to tolerate being off BiPAP for even a few minutes to take her medications. Patient is currently on 100% FiO2 on BiPAP saturating at 91- 92% vitals otherwise stable temp of 98.8 pulse 75 respiratory rate 27 blood pressure 129/53. Patient has a drop of hemoglobin from 10.4-8 today with MCV 103. INR is 1.8 subtherapeutic, elevated APTT 50 in origin and d-dimer 0.97. PCO2 is 46 pO2 71 bicarb 28 with a pH of 7.37, sodium 146 chloride 1:15, BUN 48 creatinine 0.87 glucose 125. Alkaline phosphatase has increased to 215 from 1:15, AST increased from 7 to 151 ALT increased from 79 to 201. Ultrasound abdomen ordered to evaluate for liver and gallbladder. 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 Patient is unable to take oral medication will switch patient's medication to IV today 08/18: Patient remains in the intensive care unit on BiPAP. She maintains a pulse ox of 91-96% but quickly drops if BiPAP is removed. She's been afebrile, heart rate 73, blood pressure 146/75. Repeat blood work reveals WBC 6.3, hemoglobin 10, platelet count 173. INR is 3.1. Fibrinogen 572, d-dimer 1.09. Sodium 152, potassium 4.4, chloride 117, CO2 31, BUN 48 and creatinine 0.89. TSH 0.305. ProBNP 1290. C-reactive protein 87.9. CK 22, LDH 2721. Blood sugars running in the 120s and 130s. Repeat chest x-ray reveals continued bilateral airspace disease. Patient has been seen by neurology with recommendations to continue Keppra 500 mg twice daily for seizure prophylaxis. Records from [facility] to be obtained. Patient was started on desmopressin 0.05 mg 1 tablet twice a day for central diabetes insipidus. Vitamin B-12 and folate levels ordered. TSH and ammonia level. Thiamine was started. Patient was also seen by nephrology for hypernatremia and started on normal saline at 50 mL per hour for now. 08/19: Patient remains in the intensive care unit oxygen is down to 80% on BiPAP with pulse ox running between 89 and 92. She has been afebrile, heart rate 73, blood pressure 101/59. Pulse ox drops if BiPAP is removed. We will start a soft diet as she is stating she is hungry. Midline was placed yesterday. Repea t blood work reveals WBC 6.5, hemoglobin 9.2, platelet count 161. D-dimer 2.63, fibrinogen 503, INR 4.1. Creatinine 0.81. Blood sugars run between 146 and 225. Repeat chest x-ray reveals slight improvement of diffuse infiltrate can be compatible with atypical pneumonia. Patient received DDAVP yesterday. She is currently on D5W at 60 mL per hour. She remains on Solu-Medrol 60 mg IV every 6 hours. 08/20: Patient remains in intensive care unit. She is on BiPAP and desats quickly if this is removed down to 75. She is confused and has pulled off her BiPAP. She is able to a very little today due to desaturation. Daughter has been updated during the night of the patient's status. She has been afebrile, heart rate 80, respiratory rate 26-44, blood pressure 169/88, pulse ox 92% on 70% FiO2 on BiPAP. Repeat blood work reveals Gaby BC 6.3, hemoglobin 9.6, platelet count 158. Lymphocytes are 0.7. BUN 36 creatinine 0.72. Blood sugars running between 130 348. Ferritin 2476. AST 92, ALT 198, alkaline phosphatase 294. LDH 2668. CK 0.1, C-reactive protein 22.7. Urine culture is showing gram- negative bacilli. Blood culture no growth after 72 hours 2 specimens. Repeat chest x-ray reveals cardiomegaly with bilateral multifocal acute infiltrates consistent with COVID-19. Patient is continued on IV fluids of D5W at 60 mL per hour and change today to half-normal saline. Patient received 1 dose of IV Lasix this morning. Desmopressin was discontinued as central diabetes insipidus was ruled out. 08/21: The patient is more alert today. She is now on high flow AirVo with FiO2 of 85%. Patient was able to tolerate chopped diet as morning. She was started yesterday on TPN. She is complaining of right shoulder pain which is of chronic nature and Salem resumed as well as lidocaine cream started. Patient has been afebrile, heart rate 82, blood pressure 156/75. Respiratory rate 24. Pulse ox 93% on FiO2 of 85%. cafeteria monitor is a sinus rhythm. Repeat chest x-ray r eveals stable bilateral lung infiltrates. Repeat blood work reveals WBC 7.4, hemoglobin 9.5. Creatinine 0.73. Blood sugars between 148 and 165. Liver function tests remain elevated with total bilirubin 1, AST 78, ALT 233, alkaline phosphatase 286. LDH is 2566. CK less than 20. C-reactive protein 10.8. Urine culture finalized with E. coli. Blood cultures showing no growth. 08/22: Patient remains in the intensive care unit. Oxygen is down to 70% with pulse ox of 95%. Heart rate is 140 and patient went into atrial fibrillation currently transitioned to oral amiodarone and Cardizem drip. TPN was started and patient ate 50% of her breakfast this morning. She has been afebrile. Blood pressure 147/83. Repeat blood work reveals WBC 8, hemoglobin 9.4. Blood sugars running between 228 and 300. Electrolytes normal, creatinine 0.72. Phosphorus 3.1, magnesium 2.4. Ferritin 2011, total bilirubin 0.6, AST 75, ALT 288, alkaline phosphatase 282. LDH 2469. CK less than 20. 08/23: Patient remains in the intensive care unit but has progressed very well over the past 24 hours and is scheduled for transfer out to the [facility] floor. Repeat chest x-ray reveals stable diffuse bilateral infiltrates. Dr. English has recommended continued treatment for blood pressure and his blood pressure is stable, clonidine patch can be discontinued. Patient continued on beta josh and amiodarone for another 72 hours and then amiodarone dose can be decreased. The patient can be switched back to oral Coumadin. She has been afebrile, heart rate 69, blood pressure 133/71, pulse ox 95% on high flow nasal cannula 15 L. WBC 9.0, hemoglobin 8.2. Electrolytes normal, BUN 42 and creatinine 0.77. Blood sugars running between 179 and 291. LDH 1980. Total bilirubin 0.5. AST 37, ALT 211, alkaline phosphatase 258. 08/24: Patient continues to have cough. Patient has been afebrile, heart rate 80, blood pressure 138/79, pulse ox 94-97% on 15 L high flow nasal cannula. INR is 1.2. Patient was started on Coumadin last night of 5 mg, pharmacy dosing. Blood sugar 129 244.She is very much looking forward to getting home eventually. She is agreeable to subacute rehab and PT has recommended subacute rehab. We will plan for his material requirements planning manager/bilingual social worker following up tomorrow. 08/25: Patient's pain status continues to improve. She has been afebrile, heart rate 76, blood pressure 163/74, pulse ox is 98% on 10 L high flow nasal cannula. WBC 8.6, hemoglobin 9.3, platelet count 226. Patient denies any abdominal pain. She is tolerating diet. She is continued on IV Solu-Medrol. INR today 1.7 and pharmacy is dosing Coumadin. Sodium 147, potassium 5.4, chloride 113, CO2 27.5. BUN 55 and creatinine 1. Blood sugars run between 137-188. Liver function tests remain elevated with AST 51, ALT 342, alkaline phosphatase 265. Nephrology has discontinued potassium supplement and considering D5W tomorrow sodium remains elevated. PT and OT to start working with the patient is a need for subacute rehab. 08/26: She has been afebrile, heart rate 75, blood pressure 106/76, pulse ox 90- 96% on 8 L high flow nasal cannula. Blood sugars running between 150 and 218. Repeat INR 2.29 and Lovenox will be discontinued. Patient continues to complain of weakness. She denies having any diarrhea. Patient is awake and alert. No mental status changes. entertainment manager is in process of making discharge plans with patient's . 08/27: Patient has been afebrile, heart rate 78, blood pressure 133/75, pulse ox 92% on 8 L nasal cannula. Patient states that she is feeling so-so but better since she is bit on the MedSurg floor. The patient will update her to call social work regarding discharge planning. INR is 2.6. W BC 7.2, hemoglobin 8.3, platelet count 282. Blood sugars running between 118 197. Sodium 147, potassium 4.8. BUN 41 creatinine 0.7. ALT 189, alkaline phosphata se 192, LDH 541, C-reactive protein 0.9. D-dimer 0.55. 08/28: Patient has no new complaints. Respiratory status is slowly improving. Her pulse ox today is at 90% on 10 L nasal cannula, afebrile, heart rate 76, blood pressure 156/77. WBC 9.4, hemoglobin 8.4, platelet count 296. Blood sugars run between 132 and 239. Electrolytes are normal, creatinine 0.8. AST 29, ALT 170, alkaline phosphatase 176. Patient's has been contacted and updated regarding patient's progress. Anticipate discharge once oxygen need is down to 6 L. 08/29: Patient's oxygen was increased to 10 L high flow nasal cannula. It appears that she did not have any respiratory distress that would warrant this. Discussed with the nurse this morning that we will need to get a back to 8 and our goal will be 6 or below so that she can go to the retirement on Tuesday. Patient's was updated via phone call by Dr. Ariza yesterday. Our discharge plan is for [facility] or [facility] on Tuesday. Patient has been afebrile, heart rate 71, blood pressure 168/77. Pulse ox 97% on 8 L high flow nasal cannula. INR is 2.65 and pharmacy is dosing. Blood sugars running between 156 and 233. Norvasc has been increased to twice daily 5 mg yesterday. Hydralazine will be resumed at 50 mg twice daily for blood pressure control. Patient is normally on hydralazine 100 mg 3 times daily. 08/30: Attempted to wean patient off the high flow nasal cannula. However she was intolerant pulse ox dropped to the 60s. She is currently on a 100% Ventimask with [address] cannula in place. Due to the hypoxia patient became c onfused and has sitter at the bedside. Her lungs sound still show congestion specifically at the left base with rhonchi and no wheezes. Patient remains afebrile, pulse rate 75, respirations 16 with shortness of breath noted with activity, blood pressure 147/73, pulse oxing 100% on a nonrebreather with 15 L high flow oxygen. 08/31: She continues to require 15 L of high flow oxygen via nasal cannula and a nonrebreather. With any activity or movement patient's pulse ox will drop down to the 70s. Respiratory therapy was in this morning to attempt to wean patient off of her oxygen requirements and were unsuccessful. Discussed with patient and her results of her chest x-ray and her poor prognosis. Questions were answered and complications were discussed. Chest x-ray this morning shows findings are similar. There is bilateral airspace disease. Lung volumes are low, correlate for pneumonia, edema, stable cardiomegaly REVIEW OF SYSTEMS Constitutional: No fever, no chills, no night sweats. No weight change. Reports continued weakness, reports fatigue, reports daytime sleepiness. EENT: No headache. No blurred vision or double vision, no loss of vision. No loss of Hearing, no ringing in the ears, no dizziness. No nasal drainage or congestion. No epistaxis. No sore throat. Lungs: Reports continued shortness of breath improving, reports cough improving, no sputum production. No wheezing. Cardiovascular: No chest pain, no lower extremity edema. No palpitations. No paroxysmal nocturnal dyspnea. No orthopnea. No lightheadedness or dizziness. No syncopal episodes. Abdominal: No abdominal pain. No nausea, vomiting. No diarrhea. No constipation. No bloody or tarry stools. Reports increased appetite. Genitourinary: No dysuria, increased frequency, urgency. No urinary retention. Moses catheter in place. Musculoskeletal: No myalgias. No muscle weakness, no gait dysfunction, no frequent falls. No back pain. No neck pain. Integumentary: No wounds, no lesions. No rash or pruritus. No unusual bruising. Neurologic: No aphasia. No facial droop. No change in mentation. No head injury. No headache. No paralysis. No paresthesia. Psychiatric: No depression. No anxiety. Endocrine: Reports abnormal blood sugars. No weight change. PHYSICAL EXAMINATION Gen: This is a 63-year-old female. She is seen today on the [facility] floor. Patient is to be in no acute respiratory distress at rest. HEENT: Head is atraumatic, normocephalic. Pupils equal, round. Sclerae is anicteric. NECK: Supple. No JVD. No lymphadenopathy. No thyromegaly. LUNGS: Scattered rhonchi. No wheezes. Mild intercostal retractions. HEART: Regular rate and rhythm. 3/6 systolic murmur. ABDOMEN: Soft. Bowel sounds are present. No masses. No tenderness. Moses catheter in place. EXTREMITIES: No pedal edema. No calf tenderness. NEUROLOGICAL: Patient is awake, alert and oriented 3. No neuro deficits noted. ASSESSMENT AND PLAN 1. Acute hypoxic respiratory failure secondary to COVID-19 Pneumonia and COPD exacerbation. Consult with pulmonary medicine appreciated. Continue oxygen therapy. 2. COVID-19 pneumonia. Continue vitamin C, vitamin D, zinc, Solu-Medrol 40 mg IV every 6 hours, Coumadin. 3. COPD exacerbation. Continue Solu-Medrol 40 mg IV every 6 hours, pulmonary consult appreciated. 4. Acute hemorrhagic stroke with acute left subdural hemorrhage with benign tumor status post left frontal craniotomy. Patient was discharged on August 13 from [facility]/rehab facility. Continue Keppra and steroids. Consult with neurology appreciated. 5. Acute toxic metabolic encephalopathy secondary to Covid 19, hyponatremia. Neurology consult appreciated. Continue Keppra for prophylaxis seizure activity. Hold Lyrica. Salem resumed for shoulder pain. 6. Central diabetes insipidus ruled out. 7. History of pulmonary embolism and DVT. Continue Coumadin, pharmacy dosing. Monitor INR daily. 8. History of coronary artery disease. Continue Lopressor 9. Hypertension. Continue Lopressor 50 mg twice daily, amlodipine 5 mg twice daily. Resume hydralazine at 50 mg twice daily. hydralazine 10 mg IV push every 6 hours as needed 10. Hypothyroidism. Continue levothyroxine 37.5 mg daily. 11. Hyperlipidemia. Hold pravastatin. 12. Recurrent depression. Continue venlafaxine 150 mg oral daily. Seroquel 25 mg at bedtime. 13. GI prophylaxis. Pepcid 20 mg oral every 12 hours. 14. DVT prophylaxis. Coumadin 15. UTI. Patient started on Rocephin. 16. Chronic right shoulder pain. Salem and lidocaine cream. 17. Severe protein calorie malnutrition. TPN has been discontinued. Continue oral diet. 18. Hyperglycemia secondary to steroids. Hemoglobin A1c is 5.6. Levemir 12 units twice daily, continue NovoLog scale before meals and at bedtime. 19. Hypernatremia. Nephrology is following. Prognosis: Poor DISCHARGE PLAN Subacute rehab. Impression and plan of care have been directed as dictated by the signing physician. Pauline Turner nurse practitioner acting as scribe for signing physician. Objective - Vital Signs Vital signs: Vital Signs Temp 98.7 F 08/31/20 04:40 Pulse 75 08/31/20 04:40 Resp 16 08/31/20 07:10 BP 129/68 08/31/20 04:40 Pulse Ox 100 08/31/20 09:22 Intake & Output 08/30/20 08/31/20 08/31/20 18:59 06:59 18:59 Intake Total 900 1190 Output Total 2200 Balance 900 -1010 Weight 100.5 kg Intake: Intake, IV Titration 600 600 Amount Dextrose 5% in Water 1, 600 600 000 ml @ 50 mls/hr IV . Q20H [facility] Rx#:[id number] Oral 300 590 Output: Urine 2200 Uretheral ([facility]) 1100 Other: Voiding Method Indwelling Catheter Indwelling Catheter Indwelling Catheter # Voids 4 - Labs CBC & Chem 7: 08/28/20 06:22 08/28/20 06:22 Labs: Abnormal Lab Results - Last 24 Hours (Table) 08/30/20 08/30/20 08/30/20 Range/Units 06:14 12:04 17:15 PT 28.1 H (9.9-11.9) sec INR 2.81 H (0.90-1.11) POC Glucose (mg/dL) 155 H 126 H (75-99) mg/dL 08/30/20 08/31/20 08/31/20 Range/Units 22:02 07:20 11:09 PT (9.9-11.9) sec INR (0.90-1.11) POC Glucose (mg/dL) 154 H 171 H 197 H (75-99) mg/dL
[2020-08-31 12:12] LABS: INR 2.65 (0.90-1.11); Prothrombin Time 26.6 sec (9.9-11.9)
[2020-08-31 12:41] LABS: ABG Base Excess 9.1 mmol/L; ABG HCO3 34 mmol/L (21-25); ABG PCO2 52 mmHg (35-45); ABG PH 7.42 (7.35-7.45); ABG PO2 203 mmHg (83-108); ABG TCO2 35 mmol/L (19-24); Allen Test Performed? Yes
--- NOTE | 2020-08-31 14:12 | P.PN ---
Subjective Progress Note Date: 08/31/20 Principal diagnosis: Acute hypoxic respiratory failure secondary to CoVID 19 pneumonitis The patient is seen today 08/27/2020 in follow-up on the regular medical floor. She was admitted for acute hypoxic respiratory failure secondary to CoVID 19 pneumonitis. She was outside the window for Remdesivir. She did receive 2 units of convalescent plasma. She remains awake and alert in no acute distress. Confused to place. Calling out for her father. Currently requiring 8 L high flow nasal cannula to maintain O2 saturations in the 90s. Chest x-ray continues to show diffuse bilateral airspace disease. White count 7.2. Hemoglobin 8.3. Lymphocytes 0.5. INR 2.6. D-dimer 0.55. Sodium 147. Potassium 4.8. Creatinine 0.7. LDH 541. Remains on IV Solu-Medrol, Pepcid, vitamin supplements. Anticoagulated with warfarin. Patient is seen today 08/28/2020 follow-up on the regular medical floor. She is currently resting quite comfortably in bed. Awake and alert in no acute distress. States she is breathing easier today today. Remains on 10 L high flow nasal cannula. She's afebrile. White count 9.4. Hemoglobin 8.4. INR 2.37. Sodium 143. Potassium 5.0. Creatinine 0.8. She remains on vitamin supplements, Pepcid, melatonin, IV Solu-Medrol, anticoagulated with warfarin. The patient is seen today 01/27/2021 follow-up on the regular medical floor. She is awake and alert in no acute distress. Resting fairly comfortably in bed. Maintaining O2 saturations in the 90s on 8 L high flow nasal cannula. Currently afebrile. Hemodynamically stable. INR 2.65. Blood glucose 156. She remains on vitamin supplements, Pepcid, melatonin, IV Solu-Medrol, anticoagu lated with warfarin. Computed tomography scan of the brain reveals no new acute intracranial hemorrhage or midline shift. Left-sided postsurgical changes redemonstrated. There is [id number] diffuse age-related cerebral atrophy and chronic small vessel ischemic changes redemonstrated. No changes compared to previous CT 2 weeks ago. The patient is seen today 08/30/2020 follow-up on the regular medical floor. He is currently resting in bed. She is now requiring 15 L high flow nasal cannula in addition to a nonrebreather mask. Increased oxygen requirement since yesterday. He is less responsive. INR 2.81. Glucose 155. She remains on vitamin supplements, Pepcid, melatonin, IV Solu-Medrol, anticoagulated with warfarin. The patient is seen today 08/31/2020 follow-up on the regular medical floor. She is currently sitting up in bed. Awake and alert. Following simple command s. She is requiring 15 L high flow nasal cannula and a nonrebreather mask to maintain O2 saturations in the 90s. Chest x-ray reveals bilateral airspace disease. Arterial blood gases were drawn on 100% FiO2 and the patient's PT O2 is 203, pCO2 52, pH 7.42. INR 2.65. Glucose 197. She has been slow to progress. Remains on IV Solu-Medrol, anti-coagulated with warfarin, Pepcid, melatonin, vitamin supplements. Objective - Vital Signs Vital signs: Vital Signs Temp 98.2 F 08/31/20 10:47 Pulse 76 08/31/20 10:47 Resp 19 08/31/20 10:47 BP 125/74 08/31/20 10:47 Pulse Ox 99 08/31/20 12:49 Intake & Output 08/30/20 08/31/20 08/31/20 18:59 06:59 18:59 Intake Total 900 1190 Output Total 2200 Balance 900 -1010 Weight 100.5 kg Intake: Intake, IV Titration 600 600 Amount Dextrose 5% in Water 1, 600 600 000 ml @ 50 mls/hr IV . [facility] Rx#:[id number] Oral 300 590 Output: Urine 2200 Uretheral ([facility]) 1100 Other: Voiding Method Indwelling Catheter Indwelling Catheter Indwelling Catheter # Voids 4 - Exam Gen: This is a pleasant 63-year-old female patient, alertness waxes and wanes, on 15 L high flow nasal cannula and nonrebreather mask. O2 saturation is in the 90s. HEENT: Head is atraumatic, normocephalic. Pupils equal, round. Sclerae is anicteric. NECK: Supple. No JVD. No lymphadenopathy. No thyromegaly. LUNGS: Scattered rhonchi. No wheezes. Mild intercostal retractions. HEART: Regular rate and rhythm. 3/6 systolic murmur. ABDOMEN: Soft. Bowel sounds are present. No masses. No tenderness. Moses catheter in place. EXTREMITIES: No pedal edema. No calf tenderness. NEUROLOGICAL: Patient is awake, alert and oriented x3. Cranial nerves 2 through 12 are grossly intact. Psychiatric: Arousable, Normal mood, affect and normal mental status examination. Skin: No rashes - Labs CBC & Chem 7: 08/28/20 06:22 08/28/20 06:22 Labs: Abnormal Lab Results - Last 24 Hours (Table) 08/30/20 08/30/20 08/31/20 Range/Units 17:15 22:02 06:38 PT 26.6 H (9.9-11.9) sec INR 2.65 H (0.90-1.11) ABG pCO2 (35-45) mmHg ABG pO2 (83-108) mmHg ABG HCO3 (21-25) mmol/L ABG Total CO2 (19-24) mmol/L ABG O2 Saturation (94-97) % POC Glucose (mg/dL) 126 H 154 H (75-99) mg/dL 08/31/20 08/31/20 08/31/20 Range/Units 07:20 11:09 12:35 PT (9.9-11.9) sec INR (0.90-1.11) ABG pCO2 52 H (35-45) mmHg ABG pO2 203 H (83-108) mmHg ABG HCO3 34 H (21-25) mmol/L ABG Total CO2 35 H (19-24) mmol/L ABG O2 Saturation 100.0 H (94-97) % POC Glucose (mg/dL) 171 H 197 H (75-99) mg/dL Assessment and Plan Assessment: 1 Acute hypoxic respiratory failure secondary to CoVID 19 pneumonia. Outside the window for Remdesivir. Did receive 2 units of convalescent plasma. Currently required 15 L high flow along with a nonrebreather mask. 2 Recent history of hemorrhagic stroke with left subdural hematoma status post left frontal craniotomy. Computed tomography scan of the brain performed today 08/29/2020 revealed no acute intracranial hemorrhage or midline shift. Left- sided postsurgical changes redemonstrated. There is [id number] diffuse age-related cerebral atrophy and chronic small vessel ischemic changes. No significant change from recent computed tomography scan 13 days ago. 3 Acute toxic metabolic encephalopathy 4 History of pulmonary embolism and DVT. On Lovenox. 5 History of underlying coronary artery disease. 6 Benign essential hypertension. 7 Hypothyroidism. 8 Dyslipidemia. 9 Paroxysmal atrial fibrillation, presently in sinus rhythm. Anticoagulated with warfarin. Plan: The patient was seen and evaluated by Dr. Nava Chest x-ray and ABGs reviewed Titrate down the FiO2 as tolerated Prognosis is guarded We'll continue to follow I, the cosigning physician, performed a history & physical examination of the patient. Lungs sounds with bilateral scattered rhonchi. Maintaining good O2 saturations in the 90s on 15 L high flow nasal cannula with a nonrebreather mask. I discussed the assessment and plan of care with my nurse practitioner, Janneth Andrew. I attest to the above note as dictated by her.
[2020-08-31] MEDS ORDERED: bisacodyL 10 MG SUPP RECTAL STA (15:34)
[2020-08-31] MEDS: MAGNESIUM HYDROXIDE 2,400 MG/10 ML CUP PO PRN (15:49)
[2020-08-31] MEDS ORDERED: WARFARIN 1.25 MG TAB PO ONE (18:00)
[2020-08-31 18:10] LABS: Glucose,Whole Blood 119 mg/dL (75-99)
[2020-08-31 20:28] LABS: Glucose,Whole Blood 185 mg/dL (75-99)
[2020-08-31] MEDS: MELATONIN 5 MG TABLET PO SCH (22:00)
[2020-08-31] MEDS: QUEtiapine 25 MG TAB PO SCH (22:00)
[2020-09-01] MEDS: LEVOTHYROXINE 75 MCG TAB PO SCH (05:55)
[2020-09-01] MEDS: methylPREDNISolone SOD SUCCI 40 MG/ML 1 ML VIAL IV SCH ×4 (05:55→23:36)
[2020-09-01] MEDS: HYDROcodone/APAP 5-325MG 1 EACH TAB PO PRN ×2 (06:06→17:20)
[2020-09-01 07:14] LABS: Glucose,Whole Blood 166 mg/dL (75-99)
--- NOTE | 2020-09-01 07:31 | XR ---
EXAMINATION TYPE: XR chest 1V DATE OF EXAM: 09/01/2020 COMPARISON: 08/31/2020 HISTORY: 64 year-old female shortness of breath TECHNIQUE: Single frontal view of the chest is obtained. FINDINGS: Right PICC tip at the caval atrial junction. Heart is mildly enlarged. Diffuse interstitial and patch y opacities persist without significant change. IMPRESSION: Cardiomegaly with continued diffuse interstitial and patchy airspace opacities without significant ch mihai.
[2020-09-01] MEDS: INSULIN ASPART (NovoLOG) 100 UNIT/ML VIAL SQ SCH ×4 (09:06→21:47)
[2020-09-01] MEDS: INSULIN DETEMIR (LEVEMIR) 100 UNIT/ML SYR SQ SCH ×2 (09:06→21:48)
[2020-09-01] MEDS: DOCUSATE 100 MG CAP PO SCH (09:07)
[2020-09-01] MEDS: ZINC SULFATE 220 MG CAP PO SCH (09:07)
[2020-09-01] MEDS: METOPROLOL TARTRATE 50 MG TAB PO SCH ×2 (09:07→21:47)
[2020-09-01] MEDS: CHOLECALCIFEROL 1,000 UNIT TAB PO SCH (09:07)
[2020-09-01] MEDS: amLODIPine 5 MG TAB PO SCH ×2 (09:07→21:47)
[2020-09-01] MEDS: VENLAFAXINE HCL ER 150 MG CAP PO SCH (09:07)
[2020-09-01] MEDS: THIAMINE 100 MG TAB PO SCH (09:07)
[2020-09-01] MEDS: ASCORBIC ACID 500 MG TAB PO SCH (09:07)
[2020-09-01] MEDS: levETIRAcetam 500 MG TAB PO SCH ×2 (09:07→21:47)
[2020-09-01] MEDS: AMIODARONE 200 MG TAB PO SCH ×2 (09:07→21:47)
[2020-09-01] MEDS: hydrALAZINE HCL 50 MG TAB PO SCH ×2 (09:08→21:47)
[2020-09-01] MEDS: FAMOTIDINE 20 MG TAB PO SCH ×2 (09:08→21:47)
[2020-09-01] MEDS: CYANOCOBALAMIN 500 MCG TAB PO SCH (09:08)
[2020-09-01 09:18] LABS: INR 2.06 (0.90-1.11); Prothrombin Time 21.1 sec (9.9-11.9)
--- NOTE | 2020-09-01 10:05 | P.PN ---
Subjective Progress Note Date: 09/01/20 Ms. Sutherland is a 64 years old female patient of Dr. Siu with past medical history of coronary artery disease, hypertension, history of DVT and pulmonary embolism in 2002, fibromyalgia, asthma who presented to the hospital with worsening shortness of breath associated with change in mental status for the past 24 hours. Patient was in [facility] for subdural hemorrhage associated with meningioma in the left frontal lobe. Patient underwent left frontal craniotomy and was discharged on 08/13 on seizure precaution medication and pain medication. Patient's daughter is an RN who checked her oxygen at home which was saturating at 38%. Patient was brought to the hospital by EMS as patient was found unresponsive with her oxygen in the 40s and was placed on a BiPAP. Patient is unable to provide any history as she Is confused. Called patient's who stated that patient was doing well post discharge until last night when she became short of breath and confused. Patient did have acute stroke from the subdural hemorrhage causing right arm and right leg weakness associated with a phase ER. Patient was in the hospital for 6 weeks and recovered from both right upper and lower extremity weakness and a phasia. Patient was smoking at home post discharge. She was evaluated by her daughter who is an RN who insisted on calling EMS as she did not appear well.On evaluation in the ER patient was found to have bilateral groundglass opacities concerning for call with pneumonia. Vital suggested temp of 97.9 pulse 81 blood pressure 122/78 respiratory rate of 20. Call with 19 was positive. WBC 5.8 hemoglobin 10.4. ABG was obtained with a pO2 of 55 pCO2 of 44 . Patient's so dium is 146 chloride 117 BUN 48 creatinine 1.01 glucose 110 AST 74 8079 magnesium 2.5 proBNP 1560 LDH 2556 troponin negative 1 CRP 220. INR is elevated at 2.6. Pulmonary consult was placed. Patient placed on Solu-Medrol 60 every 6, zinc sulfide 220 vitamin C 1000 mg daily. EKG was normal sinus rhythm with no ST or segment depression or elevation. 1/3 patient assessed in ICU currently on BiPAP. Patient is oriented 2. Patient was not able to tolerate being off BiPAP for even a few minutes to take her medications. Patient is currently on 100% FiO2 on BiPAP saturating at 91- 92% vitals otherwise stable temp of 98.8 pulse 75 respiratory rate 27 blood pressure 129/53. Patient has a drop of hemoglobin from 10.4-8 today with MCV 103. INR is 1.8 subtherapeutic, elevated APTT 50 in origin and d-dimer 0.97. PCO2 is 46 pO2 71 bicarb 28 with a pH of 7.37, sodium 146 chloride 1:15, BUN 48 creatinine 0.87 glucose 125. Alkaline phosphatase has increased to 215 from 1:15, AST increased from 7 to 151 ALT increased from 79 to 201. Ultrasound abdomen ordered to evaluate for liver and gallbladder. 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 Patient is unable to take oral medication will switch patient's medication to IV today 08/18: Patient remains in the intensive care unit on BiPAP. She maintains a pulse ox of 91-96% but quickly drops if BiPAP is removed. She's been afebrile, heart rate 73, blood pressure 146/75. Repeat blood work reveals WBC 6.3, hemoglobin 10, platelet count 173. INR is 3.1. Fibrinogen 572, d-dimer 1.09. Sodium 152, potassium 4.4, chloride 117, CO2 31, BUN 48 and creatinine 0.89. TSH 0.305. ProBNP 1290. C-reactive protein 87.9. CK 22, LDH 2721. Blood sugars running in the 120s and 130s. Repeat chest x-ray reveals continued bilateral airspace disease. Patient has been seen by neurology with recommendations to continue Keppra 500 mg twice daily for seizure prophylaxis. Records from [facility] to be obtained. Patient was started on desmopressin 0.05 mg 1 tablet twice a day for central diabetes insipidus. Vitamin B-12 and folate levels ordered. TSH and ammonia level. Thiamine was started. Patient was also seen by nephrology for hypernatremia and started on normal saline at 50 mL per hour for now. 08/19: Patient remains in the intensive care unit oxygen is down to 80% on BiPAP with pulse ox running between 89 and 92. She has been afebrile, heart rate 73, blood pressure 101/59. Pulse ox drops if BiPAP is removed. We will start a soft diet as she is stating she is hungry. Midline was placed yesterday. Repeat blood work reveals WBC 6.5, hemoglobin 9.2, platelet count 161. D-dimer 2.63, fibrinogen 503, INR 4.1. Creatinine 0.81. Blood sugars run between 146 and 225. Repeat chest x-ray reveals slight improvement of diffuse infiltrate can be compatible with atypical pneumonia. Patient received DDAVP yesterday. She is currently on D5W at 60 mL per hour. She remains on Solu-Medrol 60 mg IV every 6 hours. 08/20: Patient remains in intensive care unit. She is on BiPAP and desats quickly if this is removed down to 75. She is confused and has pulled off her BiPAP. She is able to a very little today due to desaturation. Daughter has been updated during the night of the patient's status. She has been afebrile, heart rate 80, respiratory rate 26-44, blood pressure 169/88, pulse ox 92% on 70% FiO2 on BiPAP. Repeat blood work reveals Gaby BC 6.3, hemoglobin 9.6, platelet count 158. Lymphocytes are 0.7. BUN 36 creatinine 0.72. Blood sugars running between 130 348. Ferritin 2476. AST 92, ALT 198, alkaline phosphatase 294. LDH 2668. CK 0.1, C-reactive protein 22.7. Urine culture is showing gram- negative bacilli. Blood culture no growth after 72 hours 2 specimens. Repeat chest x-ray reveals cardiomegaly with bilateral multifocal acute infiltrates consistent with COVID-19. Patient is continued on IV fluids of D5W at 60 mL per hour and change today to half-normal saline. Patient received 1 dose of IV Lasix this morning. Desmopressin was discontinued as central diabetes insipidus was ruled out. 08/21: The patient is more alert today. She is now on high flow AirVo with FiO2 of 85%. Patient was able to tolerate chopped diet as morning. She was started yesterday on TPN. She is complaining of right shoulder pain which is of chronic nature and [place] resumed as well as lidocaine cream started. Patient has been afebrile, heart rate 82, blood pressure 156/75. Respiratory rate 24. Pulse ox 93% on FiO2 of 85%. color television console monitor is a sinus rhythm. Repeat chest x-ray reveals stable bilateral lung infiltrates. Repeat blood work reveals WBC 7.4, hemoglobin 9.5. Creatinine 0.73. Blood sugars between 148 and 165. Liver function tests remain elevated with total bilirubin 1, AST 78, ALT 233, alkaline phosphatase 286. LDH is 2566. CK less than 20. C-reactive protein 10.8. Urine culture finalized with E. coli. Blood cultures showing no growth. 08/22: Patient remains in the intensive care unit. Oxygen is down to 70% with pulse ox of 95%. Heart rate is 140 and patient went into atrial fibrillation currently transitioned to oral amiodarone and Cardizem drip. TPN was started and patient ate 50% of her breakfast this morning. She has been afebrile. Blood pressure 147/83. Repeat blood work reveals WBC 8, hemoglobin 9.4. Blood sugars running between 228 and 300. Electrolytes normal, creatinine 0.72. P hosphorus 3.1, magnesium 2.4. Ferritin 2011, total bilirubin 0.6, AST 75, ALT 288, alkaline phosphatase 282. LDH 2469. CK less than 20. 08/23: Patient remains in the intensive care unit but has progressed very well over the past 24 hours and is scheduled for transfer out to the [facility] floor. Repeat chest x-ray reveals stable diffuse bilateral infiltrates. Dr. English has recommended continued treatment for blood pressure and his blood pressure is stable, clonidine patch can be discontinued. Patient continued on beta josh and amiodarone for another 72 hours and then amiodarone dose can be decreased. The patient can be switched back to oral Coumadin. She has been afebrile, heart rate 69, blood pressure 133/71, pulse ox 95% on high flow nasal cannula 15 L. WBC 9.0, hemoglobin 8.2. Electrolytes normal, BUN 42 and creatinine 0.77. Blood sugars running between 179 and 291. LDH 1980. Total bilirubin 0.5. AST 37, ALT 211, alkaline phosphatase 258. 08/24: Patient continues to have cough. Patient has been afebrile, heart rate 80, blood pressure 138/79, pulse ox 94-97% on 15 L high flow nasal cannula. INR is 1.2. Patient was started on Coumadin last night of 5 mg, pharmacy dosing. Blood sugar 129 244.She is very much looking forward to getting home eventually. She is agreeable to subacute rehab and PT has recommended subacute rehab. We will plan for his load manager/social and political studies professor following up tomorrow. 08/25: Patient's pain status continues to improve. She has been afebrile, heart rate 76, blood pressure 163/74, pulse ox is 98% on 10 L high flow nasal cannula. WBC 8.6, hemoglobin 9.3, platelet count 226. Patient denies any abdominal pain. She is tolerating diet. She is continued on IV Solu-Medrol. INR today 1.7 and pharmacy is dosing Coumadin. Sodium 147, potassium 5.4, chloride 113, CO2 27.5. BUN 55 and creatinine 1. Blood sugars run between 137-188. Liver function tests remain elevated with AST 51, ALT 342, alkaline phosphatase 265. Nephrology has discontinued potassium supplement and considering D5W tomorrow sodium remains elevated. PT and OT to start working with the patient is a need for subacute rehab. 08/26: She has been afebrile, heart rate 75, blood pressure 106/76, pulse ox 90- 96% on 8 L high flow nasal cannula. Blood sugars running between 150 and 218. Repeat INR 2.29 and Lovenox will be discontinued. Patient continues to complain of weakness. She denies having any diarrhea. Patient is awake and alert. No mental status changes. maintenance department manager is in process of making discharge plans with patient's . 08/27: Patient has been afebrile, heart rate 78, blood pressure 133/75, pulse ox 92% on 8 L nasal cannula. Patient states that she is feeling so-so but better since she is bit on the MedSurg floor. The patient will update her to call social work regarding discharge planning. INR is 2.6. W BC 7.2, hemogl obin 8.3, platelet count 282. Blood sugars running between 118 197. Sodium 147, potassium 4.8. BUN 41 creatinine 0.7. ALT 189, alkaline phosphatase 192, LDH 541, C-reactive protein 0.9. D-dimer 0.55. 08/28: Patient has no new complaints. Respiratory status is slowly improving. Her pulse ox today is at 90% on 10 L nasal cannula, afebrile, heart rate 76, blood pressure 156/77. WBC 9.4, hemoglobin 8.4, platelet count 296. Blood sugars run between 132 and 239. Electrolytes are normal, creatinine 0.8. AST 29, ALT 170, alkaline phosphatase 176. Patient's has been contacted and updated regarding patient's progress. Anticipate discharge once oxygen need is down to 6 L. 08/29: Patient's oxygen was increased to 10 L high flow nasal cannula. It appears that she did not have any respiratory distress that would warrant this. Discussed with the nurse this morning that we will need to get a back to 8 and our goal will be 6 or below so that she can go to the residential on Tuesday. Patient's was updated via phone call by Dr. Ariza yesterday. Our discharge plan is for [facility] or [facility] on Tuesday. Patient has been afebrile, heart rate 71, blood pressure 168/77. Pulse ox 97% on 8 L high flow nasal cannula. INR is 2.65 and pharmacy is dosing. Blood sugars running between 156 and 233. Norvasc has been increased to twice daily 5 mg yesterday. Hydralazine will be resumed at 50 mg twice daily for blood pressure control. Patient is normally on hydralazine 100 mg 3 times daily. 08/30: Attempted to wean patient off the high flow nasal cannula. However she was intolerant pulse ox dropped to the 60s. She is currently on a 100% Ventimask with [address] cannula in place. Due to the hypoxia patient became confused and has sitter at the bedside. Her lungs sound still show congestion specifically at the left base with rhonchi and no wheezes. Patient remains afebrile, pulse rate 75, respirations 16 with shortness of breath noted with activity, blood pressure 147/73, pulse oxing 100% on a nonrebreather with 15 L high flow oxygen. 08/31: She continues to require 15 L of high flow oxygen via nasal cannula and a nonrebreather. With any activity or movement patient's pulse ox will drop down to the 70s. Respiratory therapy was in this morning to attempt to wean patient off of her oxygen requirements and were unsuccessful. Discussed with patient and her results of her chest x-ray and her poor prognosis. Questions were answered and complications were discussed. Chest x-ray this morning shows findings are similar. There is bilateral airspace disease. Lung volumes are low, correlate for pneumonia, edema, stable cardiomegaly 09/01: Patient's breathing status is improved today from yesterday. PO 100% on 15L nc. She states she feels much better today. Patient is afebrile, HR 91, BP 143/76. INR 2.06. CBG 166-185. Repeat chest x-ray reveals cardiomegaly with continued diffuse interstitial and patchy airspace opacities without significant change. Plan to continue current plan with possible discharge to rehab this week. REVIEW OF SYSTEMS Constitutional: No fever, no chills, no night sweats. No weight change. Reports continued weakness, reports fatigue, reports daytime sleepiness. EENT: No headache. No blurred vision or double vision, no loss of vision. No loss of Hearing, no ringing in the ears, no dizziness. No nasal drainage or congestion. No epistaxis. No sore throat. Lungs: Reports continued shortness of breath improving, reports cough improving, no sputum production. No wheezing. Cardiovascular: No chest pain, no lower extremity edema. No palpitations. No paroxysmal nocturnal dyspnea. No orthopnea. No lightheadedness or dizziness. No syncopal episodes. Abdominal: No abdominal pain. No nausea, vomiting. No diarrhea. No constipation. No bloody or tarry stools. Reports increased appetite. Genitourinary: No dysuria, increased frequency, urgency. No urinary retention. Moses catheter in place. Musculoskeletal: No myalgias. No muscle weakness, no gait dysfunction, no fr equent falls. No back pain. No neck pain. Integumentary: No wounds, no lesions. No rash or pruritus. No unusual bruising. Neurologic: No aphasia. No facial droop. No change in mentation. No head injury. No headache. No paralysis. No paresthesia. Psychiatric: No depression. No anxiety. Endocrine: Reports elevated blood sugars. No weight change. PHYSICAL EXAMINATION Gen: This is a 63-year-old female. She is seen today on the [facility] floor. Patient is resting in bed and appears to be in no acute respiratory distress at rest. HEENT: Head is atraumatic, normocephalic. Pupils equal, round. Sclerae is anicteric. NECK: Supple. No JVD. No lymphadenopathy. No thyromegaly. LUNGS: Scattered rhonchi. No wheezes. Mild intercostal retractions. HEART: Regular rate and rhythm. 3/6 systolic murmur. ABDOMEN: Soft. Bowel sounds are present. No masses. No tenderness. Moses catheter in place. EXTREMITIES: No pedal edema. No calf tenderness. NEUROLOGICAL: Patient is awake, alert and oriented 3. No neuro deficits noted. ASSESSMENT AND PLAN 1. Acute hypoxic respiratory failure secondary to COVID-19 Pneumonia and COPD exacerbation. Consult with pulmonary medicine appreciated. Continue oxygen therapy. 2. COVID-19 pneumonia. Continue vitamin C, vitamin D, zinc, Solu-Medrol 40 mg IV every 6 hours, Coumadin. 3. COPD exacerbation. Continue Solu-Medrol 40 mg IV every 6 hours, pulmonary consult appreciated. 4. Acute hemorrhagic stroke with acute left subdural hemorrhage with benign tumor status post left frontal craniotomy. Patient was discharged on August 13 from [facility]/rehab facility. Continue Keppra and steroids. Consult with neurology appreciated. 5. Acute toxic metabolic encephalopathy secondary to Covid 19, hyponatremia. Neurology consult appreciated. Continue Keppra for prophylaxis seizure activity. Hold Lyrica. [place] resumed for shoulder pain. 6. Central diabetes insipidus ruled out. 7. History of pulmonary embolism and DVT. Continue Coumadin, pharmacy dosing. Monitor INR daily. 8. History of coronary artery disease. Continue Lopressor 9. Hypertension. Continue Lopressor 50 mg twice daily, amlodipine 5 mg twice daily. Resume hydralazine at 50 mg twice daily. hydralazine 10 mg IV push every 6 hours as needed 10. Hypothyroidism. Continue levothyroxine 37.5 mg daily. 11. Hyperlipidemia. Hold pravastatin. 12. Recurrent depression. Continue venlafaxine 150 mg oral daily. Seroquel 25 mg at bedtime. 13. GI prophylaxis. Pepcid 20 mg oral every 12 hours. 14. DVT prophylaxis. Coumadin, pharmacy dosing. 15. UTI. Completed course of Rocephin. 16. Chronic right shoulder pain. [place] and lidocaine cream. 17. Severe protein calorie malnutrition. TPN has been discontinued. Continue oral diet. 18. Hyperglycemia secondary to steroids. Hemoglobin A1c is 5.6. Levemir 12 units twice daily, continue NovoLog scale before meals and at bedtime. 19. Hypernatremia. Nephrology is following. DISCHARGE PLAN Subacute rehab this week. Impression and plan of care have been directed as dictated by the signing physician. Karyn Tamayo nurse practitioner acting as scribe for signing physician. Objective - Vital Signs Vital signs: Vital Signs Temp 97.1 F L 09/01/20 05:00 Pulse 91 09/01/20 05:00 Resp 20 09/01/20 05:00 BP 143/76 09/01/20 05:00 Pulse Ox 98 09/01/20 06:39 Intake & Output 08/31/20 09/01/20 09/01/20 18:59 06:59 18:59 Intake Total 800 200 Output Total 1150 Balance 800 -950 Weight 101.5 kg Intake: Intake, IV Titration 500 Amount Sodium Chloride 0.9% 1, 500 000 ml @ 50 mls/hr IV . [facility] Rx#:[id number] Oral 300 200 Output: Urine 1150 Other: Voiding Method Indwelling Catheter Indwelling Catheter # Bowel Movements 1 - Labs CBC & Chem 7: 08/28/20 06:22 08/28/20 06:22 Labs: Abnormal Lab Results - Last 24 Hours (Table) 08/31/20 08/31/20 08/31/20 Range/Units 06:38 11:09 12:35 PT 26.6 H (9.9-11.9) sec INR 2.65 H (0.90-1.11) ABG pCO2 52 H (35-45) mmHg ABG pO2 203 H (83-108) mmHg ABG HCO3 34 H (21-25) mmol/L ABG Total CO2 35 H (19-24) mmol/L ABG O2 Saturation 100.0 H (94-97) % POC Glucose (mg/dL) 197 H (75-99) mg/dL 08/31/20 08/31/20 09/01/20 Range/Units 18:02 20:27 07:12 PT (9.9-11.9) sec INR (0.90-1.11) ABG pCO2 (35-45) mmHg ABG pO2 (83-108) mmHg ABG HCO3 (21-25) mmol/L ABG Total CO2 (19-24) mmol/L ABG O2 Saturation (94-97) % POC Glucose (mg/dL) 119 H 185 H 166 H (75-99) mg/dL
[2020-09-01 11:07] LABS: Glucose,Whole Blood 168 mg/dL (75-99)
--- NOTE | 2020-09-01 14:10 | P.PN ---
Subjective Progress Note Date: 09/01/20 The patient is seen today 08/27/2020 in follow-up on the regular medical floor. She was admitted for acute hypoxic respiratory failure secondary to CoVID 19 pneumonitis. She was outside the window for Remdesivir. She did receive 2 units of convalescent plasma. She remains awake and alert in no acute distress. Confused to place. Calling out for her father. Currently requiring 8 L high flow nasal cannula to maintain O2 saturations in the 90s. Chest x-ray continues to show diffuse bilateral airspace disease. White count 7.2. Hemoglobin 8.3. Lymphocytes 0.5. INR 2.6. D-dimer 0.55. Sodium 147. Potassium 4.8. Creatinine 0.7. LDH 541. Remains on IV Solu-Medrol, Pepcid, vitamin supplement s. Anticoagulated with warfarin. Patient is seen today 08/28/2020 follow-up on the regular medical floor. She is currently resting quite comfortably in bed. Awake and alert in no acute distress. States she is breathing easier today today. Remains on 10 L high flow nasal cannula. She's afebrile. White count 9.4. Hemoglobin 8.4. INR 2.37. Sodium 143. Potassium 5.0. Creatinine 0.8. She remains on vitamin supplements, Pepcid, melatonin, IV Solu-Medrol, anticoagulated with warfarin. The patient is seen today 01/27/2021 follow-up on the regular medical floor. She is awake and alert in no acute distress. Resting fairly comfortably in bed. Maintaining O2 saturations in the 90s on 8 L high flow nasal cannula. Currently afebrile. Hemodynamically stable. INR 2.65. Blood glucose 156. She remains on vitamin supplements, Pepcid, melatonin, IV Solu-Medrol, anticoagulated with warfarin. Computed tomography scan of the brain reveals no new acute intracranial hemorrhage or midline shift. Left-sided postsurgical changes redemonstrated. There is [id number] diffuse age-related cerebral atrophy and chronic small vessel ischemic changes redemonstrated. No changes compared to previous CT 2 weeks ago. The patient is seen today 08/30/2020 follow-up on the regular medical floor. He is currently resting in bed. She is now requiring 15 L high flow nasal cannula in addition to a nonrebreather mask. Increased oxygen requirement since yesterday. He is less responsive. INR 2.81. Glucose 155. She remains on vitamin supplements, Pepcid, melatonin, IV Solu-Medrol, anticoagulated with warfarin. The patient is seen today 08/31/2020 follow-up on the regular medical floor. She is currently sitting up in bed. Awake and alert. Following simple commands. She is requiring 15 L high flow nasal cannula and a nonrebreather mask to maintain O2 saturations in the 90s. Chest x-ray reveals bilateral airspace disease. Arterial blood gases were drawn on 100% FiO2 and the patient's PT O2 is 203, pCO2 52, pH 7.42. INR 2.65. Glucose 197. She has been slow to progress. Remains on IV Solu-Medrol, anti-coagulated with warfarin, Pepcid, melatonin, vitamin supplements. On 09/01/2020, patient is comfortable in bed on 15 L of oxygen by nasal cannula. No significant respiratory distress. She is not using the 100% nonrebreather mask for now. She remains on IV Solu-Medrol 40 mg every 12 hours pages also on long-term articulation with warfarin and his PT/INR is being monitored. She is on Levemir insulin 12 units daily and her blood sugars are being monitored. No altered mentation. No nausea. No vomiting. No diarrhea. No abdominal pain. She remains on Pepcid, melatonin and vitamins.The chest x-ray that was done today showed cardiomegaly and diffuse interstitial and patchy airspace opacities without any significant change compared to the earlier CAT scan from 08/31/2020. Objective - Vital Signs Vital signs: Vital Signs Temp 97.3 F L 09/01/20 11:00 Pulse 70 09/01/20 11:00 Resp 18 09/01/20 11:00 BP 117/66 09/01/20 11:00 Pulse Ox 98 09/01/20 11:00 Intake & Output 08/31/20 09/01/20 09/01/20 18:59 06:59 18:59 Intake Total 800 200 Output Total 1150 Balance 800 -950 Weight 101.5 kg Intake: Intake, IV Titration 500 Amount Sodium Chloride 0.9% 1, 500 000 ml @ 50 mls/hr IV . Q20H [facility] Rx#:[id number] Oral 300 200 Output: Urine 1150 Other: Voiding Method Indwelling Catheter Indwelling Catheter Indwelling Catheter # Bowel Movements 1 - Exam Gen: This is a pleasant 63-year-old female patient, alertness waxes and wanes, on 15 L high flow nasal cannula HEENT: Head is atraumatic, normocephalic. Pupils equal, round. Sclerae is anicteric. NECK: Supple. No JVD. No lymphadenopathy. No thyromegaly. LUNGS: Scattered rhonchi. No wheezes. Mild intercostal retractions. HEART: Regular rate and rhythm. 3/6 systolic murmur. ABDOMEN: Soft. Bowel sounds are present. No masses. No tenderness. Moses catheter in place. EXTREMITIES: No pedal edema. No calf tenderness. NEUROLOGICAL: Patient is awake, alert and oriented x3. Cranial nerves 2 through 12 are grossly intact. Psychiatric: Arousable, Normal mood, affect and normal mental status examination. Skin: No rashes - Labs CBC & Chem 7: 08/28/20 06:22 08/28/20 06:22 Labs: Abnormal Lab Results - Last 24 Hours (Table) 08/31/20 08/31/20 09/01/20 Range/Units 18:02 20:27 05:48 PT 21.1 H (9.9-11.9) sec INR 2.06 H (0.90-1.11) POC Glucose (mg/dL) 119 H 185 H (75-99) mg/dL 09/01/20 09/01/20 Range/Units 07:12 11:06 PT (9.9-11.9) sec INR (0.90-1.11) POC Glucose (mg/dL) 166 H 168 H (75-99) mg/dL Assessment and Plan Plan: 1 Acute hypoxic respiratory failure secondary to CoVID 19 pneumonia. Outside the window for Remdesivir. Did receive 2 units of convalescent plasma. Currently required 15 L high flow along with a nonrebreather mask. 2 Recent history of hemorrhagic stroke with left subdural hematoma status post left frontal craniotomy. Computed tomography scan of the brain performed today 08/29/2020 revealed no acute intracranial hemorrhage or midline shift. Left- sided postsurgical changes redemonstrated. There is [id number] diffuse age-related cerebral atrophy and chronic small vessel ischemic changes. No significant change from recent computed tomography scan 13 days ago. 3 Acute toxic metabolic encephalopathy 4 History of pulmonary embolism and DVT. On Lovenox. 5 History of underlying coronary artery disease. 6 Benign essential hypertension. 7 Hypothyroidism. 8 Dyslipidemia. 9 Paroxysmal atrial fibrillation, presently in sinus rhythm. Anticoagulated with warfarin. Plan: Evaluation, the patient's oxygenation is improving. Without other FiO2 down to 10 L and later on down to 8 L to maintain a saturation above 90%. She is not using a nonrebreather facemask. She is on IV Solu-Medrol. Blood sugars are being monitored. PT/INR therapeutic. Chest x-ray stable diffuse bilateral pulmonary infiltrates, unchanged. We'll continue to follow. She is slow to progress and recover
[2020-09-01 16:58] LABS: Glucose,Whole Blood 195 mg/dL (75-99)
[2020-09-01] MEDS ORDERED: WARFARIN 2 MG TAB PO ONE (18:00)
[2020-09-01 21:40] LABS: Glucose,Whole Blood 186 mg/dL (75-99)
[2020-09-01] MEDS: QUEtiapine 25 MG TAB PO SCH (21:47)
[2020-09-01] MEDS: MELATONIN 5 MG TABLET PO SCH (21:47)
[2020-09-02 05:31] LABS: Anisocytosis Slight; HCT 25.6 % (34.0-46.0); HGB 8.6 gm/dL (11.4-16.0); MCH 34.2 pg (25.0-35.0); MCHC 33.6 g/dL (31.0-37.0); MCV 101.5 fL (80.0-100.0); Macrocytosis Slight; Mean Platelet Volume 7.2; Platelet Count 204 k/uL (150-450); RBC 2.52 m/uL (3.80-5.40); RDW 16.6 % (11.5-15.5); WBC 9.5 k/uL (3.8-10.6)
[2020-09-02] MEDS: LEVOTHYROXINE 75 MCG TAB PO SCH (05:33)
[2020-09-02] MEDS: methylPREDNISolone SOD SUCCI 40 MG/ML 1 ML VIAL IV SCH ×4 (05:34→23:38)
[2020-09-02] MEDS: SODIUM CHLORIDE 0.9% 1,000 ML IV SCH ×2 (05:34→21:06)
[2020-09-02 07:28] LABS: Glucose,Whole Blood 89 mg/dL (75-99)
[2020-09-02] MEDS: INSULIN ASPART (NovoLOG) 100 UNIT/ML VIAL SQ SCH ×4 (07:47→21:05)
[2020-09-02] MEDS: INSULIN DETEMIR (LEVEMIR) 100 UNIT/ML SYR SQ SCH ×2 (08:22→21:05)
[2020-09-02] MEDS: levETIRAcetam 500 MG TAB PO SCH ×2 (08:23→23:38)
[2020-09-02] MEDS: hydrALAZINE HCL 50 MG TAB PO SCH ×2 (08:23→21:06)
[2020-09-02] MEDS: VENLAFAXINE HCL ER 150 MG CAP PO SCH (08:23)
[2020-09-02] MEDS: amLODIPine 5 MG TAB PO SCH ×2 (08:23→21:06)
[2020-09-02] MEDS: CHOLECALCIFEROL 1,000 UNIT TAB PO SCH (08:23)
[2020-09-02] MEDS: ASCORBIC ACID 500 MG TAB PO SCH (08:23)
[2020-09-02] MEDS: CYANOCOBALAMIN 500 MCG TAB PO SCH (08:23)
[2020-09-02] MEDS: FAMOTIDINE 20 MG TAB PO SCH ×2 (08:23→21:06)
[2020-09-02] MEDS: DOCUSATE 100 MG CAP PO SCH (08:23)
[2020-09-02] MEDS: METOPROLOL TARTRATE 50 MG TAB PO SCH ×2 (08:23→21:06)
[2020-09-02] MEDS: THIAMINE 100 MG TAB PO SCH (08:24)
[2020-09-02] MEDS: ZINC SULFATE 220 MG CAP PO SCH (08:24)
[2020-09-02] MEDS: AMIODARONE 200 MG TAB PO SCH ×2 (08:24→21:06)
[2020-09-02 09:17] LABS: INR 1.75 (0.90-1.11); Prothrombin Time 18.1 sec (9.9-11.9)
[2020-09-02 09:54] LABS: African American GFR (CKD) 104.6 (60.0-200.0); Albumin 3.3 g/dL (3.80-4.90); Albumin/Globulin Ratio 2.2 (1.60-3.17); Anion Gap 6.5 mmol/L (4.00-12.00); BUN/Creat Ratio 48.57 Ratio (12.00-20.00); Calcium 8.9 mg/dL (8.7-10.3); Carbon Dioxide 32.5 mmol/L (21.6-31.8); Globulin 1.5 g/dL (1.6-3.3); Non-African American GFR(CKD) 90.3 (60.0-200.0); Potassium 4.8 mmol/L (3.5-5.5); Total Bilirubin 0.4 mg/dL (0.2-1.2); Total Protein 4.8 g/dL (6.2-8.2)
[2020-09-02 11:20] LABS: Glucose,Whole Blood 101 mg/dL (75-99)
--- NOTE | 2020-09-02 11:43 | P.PN ---
Subjective Progress Note Date: 09/02/20 Ms. Sutherland is a 64 years old female patient of Dr. Siu with past medical history of coronary artery disease, hypertension, history of DVT and pulmonary embolism in 2002, fibromyalgia, asthma who presented to the hospital with worsening shortness of breath associated with change in mental status for the past 24 hours. Patient was in [facility] for subdural hemorrhage associated with meningioma in the left frontal lobe. Patient underwent left frontal craniotomy and was discharged on 08/13 on seizure precaution medication and pain medication. Patient's daughter is an RN who checked her oxygen at home which was saturating at 38%. Patient was brought to the hospital by EMS as patient was found unresponsive with her oxygen in the 40s and was placed on a BiPAP. Patient is unable to provide any history as she Is confused. Called patient's who stated that patient was doing well post discharge until last night when she became short of breath and confused. Patient did have acute stroke from the subdural hemorrhage causing right arm and right leg weakness associated with a phase ER. Patient was in the hospital for 6 weeks and recovered from both right upper and lower extremity weakness and a phasia. Patient was smoking at home post discharge. She was evaluated by her daughter who is an RN who insisted on calling EMS as she did not appear well.On evaluation in the ER patient was found to have bilateral groundglass opacities concerning for call with pneumonia. Vital suggested temp of 97.9 pulse 81 blood pressure 122/78 respiratory rate of 20. Call with 19 was positive. WBC 5.8 hemoglobin 10.4. ABG was obtained with a pO2 of 55 pCO2 of 44 . Patient's so dium is 146 chloride 117 BUN 48 creatinine 1.01 glucose 110 AST 74 8079 magnesium 2.5 proBNP 1560 LDH 2556 troponin negative 1 CRP 220. INR is elevated at 2.6. Pulmonary consult was placed. Patient placed on Solu-Medrol 60 every 6, zinc sulfide 220 vitamin C 1000 mg daily. EKG was normal sinus rhythm with no ST or segment depression or elevation. 1/3 patient assessed in ICU currently on BiPAP. Patient is oriented 2. Patient was not able to tolerate being off BiPAP for even a few minutes to take her medications. Patient is currently on 100% FiO2 on BiPAP saturating at 91- 92% vitals otherwise stable temp of 98.8 pulse 75 respiratory rate 27 blood pressure 129/53. Patient has a drop of hemoglobin from 10.4-8 today with MCV 103. INR is 1.8 subtherapeutic, elevated APTT 50 in origin and d-dimer 0.97. PCO2 is 46 pO2 71 bicarb 28 with a pH of 7.37, sodium 146 chloride 1:15, BUN 48 creatinine 0.87 glucose 125. Alkaline phosphatase has increased to 215 from 1:15, AST increased from 7 to 151 ALT increased from 79 to 201. Ultrasound abdomen ordered to evaluate for liver and gallbladder. 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 Patient is unable to take oral medication will switch patient's medication to IV today 08/18: Patient remains in the intensive care unit on BiPAP. She maintains a pulse ox of 91-96% but quickly drops if BiPAP is removed. She's been afebrile, heart rate 73, blood pressure 146/75. Repeat blood work reveals WBC 6.3, hemoglobin 10, platelet count 173. INR is 3.1. Fibrinogen 572, d-dimer 1.09. Sodium 152, potassium 4.4, chloride 117, CO2 31, BUN 48 and creatinine 0.89. TSH 0.305. ProBNP 1290. C-reactive protein 87.9. CK 22, LDH 2721. Blood sugars running in the 120s and 130s. Repeat chest x-ray reveals continued bilateral airspace disease. Patient has been seen by neurology with recommendations to continue Keppra 500 mg twice daily for seizure prophylaxis. Records from [facility] to be obtained. Patient was started on desmopressin 0.05 mg 1 tablet twice a day for central diabetes insipidus. Vitamin B-12 and folate levels ordered. TSH and ammonia level. Thiamine was started. Patient was also seen by nephrology for hypernatremia and started on normal saline at 50 mL per hour for now. 08/19: Patient remains in the intensive care unit oxygen is down to 80% on BiPAP with pulse ox running between 89 and 92. She has been afebrile, heart rate 73, blood pressure 101/59. Pulse ox drops if BiPAP is removed. We will start a soft diet as she is stating she is hungry. Midline was placed yesterday. Repeat blood work reveals WBC 6.5, hemoglobin 9.2, platelet count 161. D-dimer 2.63, fibrinogen 503, INR 4.1. Creatinine 0.81. Blood sugars run between 146 and 225. Repeat chest x-ray reveals slight improvement of diffuse infiltrate can be compatible with atypical pneumonia. Patient received DDAVP yesterday. She is currently on D5W at 60 mL per hour. She remains on Solu-Medrol 60 mg IV every 6 hours. 08/20: Patient remains in intensive care unit. She is on BiPAP and desats quickly if this is removed down to 75. She is confused and has pulled off her BiPAP. She is able to a very little today due to desaturation. Daughter has been updated during the night of the patient's status. She has been afebrile, heart rate 80, respiratory rate 26-44, blood pressure 169/88, pulse ox 92% on 70% FiO2 on BiPAP. Repeat blood work reveals Gaby BC 6.3, hemoglobin 9.6, platelet count 158. Lymphocytes are 0.7. BUN 36 creatinine 0.72. Blood sugars running between 130 348. Ferritin 2476. AST 92, ALT 198, alkaline phosphatase 294. LDH 2668. CK 0.1, C-reactive protein 22.7. Urine culture is showing gram- negative bacilli. Blood culture no growth after 72 hours 2 specimens. Repeat chest x-ray reveals cardiomegaly with bilateral multifocal acute infiltrates consistent with COVID-19. Patient is continued on IV fluids of D5W at 60 mL per hour and change today to half-normal saline. Patient received 1 dose of IV Lasix this morning. Desmopressin was discontinued as central diabetes insipidus was ruled out. 08/21: The patient is more alert today. She is now on high flow AirVo with FiO2 of 85%. Patient was able to tolerate chopped diet as morning. She was started yesterday on TPN. She is complaining of right shoulder pain which is of chronic nature and Lindsay resumed as well as lidocaine cream started. Patient has been afebrile, heart rate 82, blood pressure 156/75. Respiratory rate 24. Pulse ox 93% on FiO2 of 85%. 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 Repeat chest x-ray reveals stable bilateral lung infiltrates. Repeat blood work reveals WBC 7.4, hemoglobin 9.5. Creatinine 0.73. Blood sugars between 148 and 165. Liver function tests remain elevated with total bilirubin 1, AST 78, ALT 233, alkaline phosphatase 286. LDH is 2566. CK less than 20. C-reactive protein 10.8. Urine culture finalized with E. coli. Blood cultures showing no growth. 08/22: Patient remains in the intensive care unit. Oxygen is down to 70% with pulse ox of 95%. Heart rate is 140 and patient went into atrial fibrillation currently transitioned to oral amiodarone and Cardizem drip. TPN was started and patient ate 50% of her breakfast this morning. She has been afebrile. Blood pressure 147/83. Repeat blood work reveals WBC 8, hemoglobin 9.4. Blood sugars running between 228 and 300. Electrolytes normal, creatinine 0.72. P hosphorus 3.1, magnesium 2.4. Ferritin 2011, total bilirubin 0.6, AST 75, ALT 288, alkaline phosphatase 282. LDH 2469. CK less than 20. 08/23: Patient remains in the intensive care unit but has progressed very well over the past 24 hours and is scheduled for transfer out to the [facility] floor. Repeat chest x-ray reveals stable diffuse bilateral infiltrates. Dr. English has recommended continued treatment for blood pressure and his blood pressure is stable, clonidine patch can be discontinued. Patient continued on beta josh and amiodarone for another 72 hours and then amiodarone dose can be decreased. The patient can be switched back to oral Coumadin. She has been afebrile, heart rate 69, blood pressure 133/71, pulse ox 95% on high flow nasal cannula 15 L. WBC 9.0, hemoglobin 8.2. Electrolytes normal, BUN 42 and creatinine 0.77. Blood sugars running between 179 and 291. LDH 1980. Total bilirubin 0.5. AST 37, ALT 211, alkaline phosphatase 258. 08/24: Patient continues to have cough. Patient has been afebrile, heart rate 80, blood pressure 138/79, pulse ox 94-97% on 15 L high flow nasal cannula. INR is 1.2. Patient was started on Coumadin last night of 5 mg, pharmacy dosing. Blood sugar 129 244.She is very much looking forward to getting home eventually. She is agreeable to subacute rehab and PT has recommended subacute rehab. We will plan for his clinical trial manager/social work assistant following up tomorrow. 08/25: Patient's pain status continues to improve. She has been afebrile, heart rate 76, blood pressure 163/74, pulse ox is 98% on 10 L high flow nasal cannula. WBC 8.6, hemoglobin 9.3, platelet count 226. Patient denies any abdominal pain. She is tolerating diet. She is continued on IV Solu-Medrol. INR today 1.7 and pharmacy is dosing Coumadin. Sodium 147, potassium 5.4, chloride 113, CO2 27.5. BUN 55 and creatinine 1. Blood sugars run between 137-188. Liver function tests remain elevated with AST 51, ALT 342, alkaline phosphatase 265. Nephrology has discontinued potassium supplement and considering D5W tomorrow sodium remains elevated. PT and OT to start working with the patient is a need for subacute rehab. 08/26: She has been afebrile, heart rate 75, blood pressure 106/76, pulse ox 90- 96% on 8 L high flow nasal cannula. Blood sugars running between 150 and 218. Repeat INR 2.29 and Lovenox will be discontinued. Patient continues to complain of weakness. She denies having any diarrhea. Patient is awake and alert. No mental status changes. seed sales manager is in process of making discharge plans with patient's . 08/27: Patient has been afebrile, heart rate 78, blood pressure 133/75, pulse ox 92% on 8 L nasal cannula. Patient states that she is feeling so-so but better since she is bit on the MedSurg floor. The patient will update her to call social work regarding discharge planning. INR is 2.6. W BC 7.2, hemogl obin 8.3, platelet count 282. Blood sugars running between 118 197. Sodium 147, potassium 4.8. BUN 41 creatinine 0.7. ALT 189, alkaline phosphatase 192, LDH 541, C-reactive protein 0.9. D-dimer 0.55. 08/28: Patient has no new complaints. Respiratory status is slowly improving. Her pulse ox today is at 90% on 10 L nasal cannula, afebrile, heart rate 76, blood pressure 156/77. WBC 9.4, hemoglobin 8.4, platelet count 296. Blood sugars run between 132 and 239. Electrolytes are normal, creatinine 0.8. AST 29, ALT 170, alkaline phosphatase 176. Patient's has been contacted and updated regarding patient's progress. Anticipate discharge once oxygen need is down to 6 L. 08/29: Patient's oxygen was increased to 10 L high flow nasal cannula. It appears that she did not have any respiratory distress that would warrant this. Discussed with the nurse this morning that we will need to get a back to 8 and our goal will be 6 or below so that she can [facility] to [facility] on [facility]. Patient's was updated via phone call by Dr. Ariza yesterday. Our discharge plan is for [facility] or [facility] on Tuesday. Patient has been afebrile, heart rate 71, blood pressure 168/77. Pulse ox 97% on 8 L high flow nasal cannula. INR is 2.65 and pharmacy is dosing. Blood sugars running between 156 and 233. Norvasc has been increased to twice daily 5 mg yesterday. Hydralazine will be resumed at 50 mg twice daily for blood pressure control. Patient is normally on hydralazine 100 mg 3 times daily. 08/30: Attempted to wean patient off the high flow nasal cannula. However she was intolerant pulse ox dropped to the 60s. She is currently on a 100% Ventimask with [address] cannula in place. Due to the hypoxia patient became confused and has sitter at the bedside. Her lungs sound still show congestion specifically at the left base with rhonchi and no wheezes. Patient remains afebrile, pulse rate 75, respirations 16 with shortness of breath noted with activity, blood pressure 147/73, pulse oxing 100% on a nonrebreather with 15 L high flow oxygen. 08/31: She continues to require 15 L of high flow oxygen via nasal cannula and a nonrebreather. With any activity or movement patient's pulse ox will drop down to the 70s. Respiratory therapy was in this morning to attempt to wean patient off of her oxygen requirements and were unsuccessful. Discussed with patient and her results of her chest x-ray and her poor prognosis. Questions were answered and complications were discussed. Chest x-ray this morning shows findings are similar. There is bilateral airspace disease. Lung volumes are low, correlate for pneumonia, edema, stable cardiomegaly 09/01: Patient's breathing status is improved today from yesterday. PO 100% on 15L nc. She states she feels much better today. Patient is afebrile, HR 91, BP 143/76. INR 2.06. CBG 166-185. Repeat chest x-ray reveals cardiomegaly with continued diffuse interstitial and patchy airspace opacities without significant change. Plan to continue current plan with possible discharge to rehab this week. 09/02: Pulse ox is now 91-93% on 6 L high flow nasal cannula. WBC 9.5, hemoglobin 8.6. CO2 32, creatinine 0.7. Blood sugars run between 94 and 186. INR is 1.75. Pharmacy is dosing Coumadin. Patient has completed treatment for UTI. Discharge plan is for [facility] and anticipate discharge tomorrow. Patient's , Kranthi, has been contacted via phone and updated regarding plan, all questions answered. REVIEW OF SYSTEMS Constitutional: No fever, no chills, no night sweats. No weight change. Reports continued weakness, reports fatigue, deniesdaytime sleepiness. EENT: No headache. No blurred vision or double vision, no loss of vision. No loss of Hearing, no ringing in the ears, no dizziness. No nasal drainage or congestion. No epistaxis. No sore throat. Lungs: Reports continued shortness of breath improving, reports cough improving, no sputum production. No wheezing. Cardiovascular: No chest pain, no lower extremity edema. No palpitations. No paroxysmal nocturnal dyspnea. No orthopnea. No lightheadedness or dizziness. No syncopal episodes. Abdominal: No abdominal pain. No nausea, vomiting. No diarrhea. No constipation. No bloody or tarry stools. Reports increased appetite. Genitourinary: No dysuria, increased frequency, urgency. No urinary retention. Moses catheter in place. Musculoskeletal: No myalgias. No muscle weakness, no gait dysfunction, no frequent falls. No back pain. No neck pain. Integumentary: No wounds, no lesions. No rash or pruritus. No unusual bruising. Neurologic: No aphasia. No facial droop. No change in mentation. No head injury. No headache. No paralysis. No paresthesia. Psychiatric: No depression. No anxiety. Endocrine: Reports elevated blood sugars. No weight change. PHYSICAL EXAMINATION Gen: This is a 63-year-old female. She is seen today on the [facility] floor. Patient is resting in chair and appears to be in no acute respiratory distress at rest. HEENT: Head is atraumatic, normocephalic. Pupils equal, round. Sclerae is anicteric. NECK: Supple. No JVD. No lymphadenopathy. No thyromegaly. LUNGS: Scattered rhonchi. No wheezes. Mild intercostal retractions. HEART: Regular rate and rhythm. 3/6 systolic murmur. ABDOMEN: Soft. Bowel sounds are present. No masses. No tenderness. Moses catheter in place. EXTREMITIES: No pedal edema. No calf tenderness. NEUROLOGICAL: Patient is awake, alert and oriented 3. No neuro deficits noted. ASSESSMENT AND PLAN 1. Acute hypoxic respiratory failure secondary to COVID-19 Pneumonia and COPD exacerbation. Consult with pulmonary medicine appreciated. Continue oxygen therapy. 2. COVID-19 pneumonia. Continue vitamin C, vitamin D, zinc, Solu-Medrol 40 mg IV every 6 hours, Coumadin. 3. COPD exacerbation. Continue Solu-Medrol 40 mg IV every 6 hours, pulmonary consult appreciated. 4. Acute hemorrhagic stroke with acute left subdural hemorrhage with benign tumor status post left frontal craniotomy. Patient was discharged on August 13 from [facility]/rehab facility. Continue Keppra and steroids. Consult with neurology appreciated. 5. Acute toxic metabolic encephalopathy secondary to Covid 19, hyponatremia. Neurology consult appreciated. Continue Keppra for prophylaxis seizure activity. Hold Lyrica. Lindsay resumed for shoulder pain. 6. Central diabetes insipidus ruled out. 7. History of pulmonary embolism and DVT. Continue Coumadin, pharmacy dosing. Monitor INR daily. 8. History of coronary artery disease. Continue Lopressor 9. Hypertension. Continue Lopressor 50 mg twice daily, amlodipine 5 mg twice daily. Resume hydralazine at 50 mg twice daily. hydralazine 10 mg IV push every 6 hours as needed 10. Hypothyroidism. Continue levothyroxine 37.5 mg daily. 11. Hyperlipidemia. Hold pravastatin. 12. Recurrent depression. Continue venlafaxine 150 mg oral daily. Seroquel 25 mg at bedtime. 13. GI prophylaxis. Pepcid 20 mg oral every 12 hours. 14. DVT prophylaxis. Coumadin, pharmacy dosing. 15. UTI. Completed course of Rocephin. 16. Chronic right shoulder pain. Lindsay and lidocaine cream. 17. Severe protein calorie malnutrition. TPN has been discontinued. Continue oral diet. 18. Hyperglycemia secondary to steroids. Hemoglobin A1c is 5.6. Levemir 12 units twice daily, continue NovoLog scale before meals and at bedtime. 19. Hypernatremia. Nephrology is following. DISCHARGE PLAN on Tuesday. Impression and plan of care have been directed as dictated by the signing physician. Karyn Tamayo nurse practitioner acting as scribe for signing physician. Objective - Vital Signs Vital signs: Vital Signs Temp 98.5 F 09/02/20 04:31 Pulse 80 09/02/20 04:31 Resp 18 09/02/20 04:31 BP 109/66 09/02/20 04:31 Pulse Ox 92 L 09/02/20 04:31 Intake & Output 09/01/20 09/02/20 09/02/20 18:59 06:59 18:59 Intake Total 600 840 Output Total 1750 350 Balance -1150 490 Weight 101.5 kg Intake: Intake, IV Titration 600 600 Amount Sodium Chloride 0.9% 1, 600 600 000 ml @ 50 mls/hr IV . Q20H [facility] Rx#:[id number] Oral 240 Output: Urine 1750 350 Other: Voiding Method Indwelling Catheter Indwelling Catheter # Bowel Movements 1 - Labs CBC & Chem 7: 09/02/20 05:08 09/02/20 05:08 Labs: Abnormal Lab Results - Last 24 Hours (Table) 09/01/20 09/01/20 09/01/20 Range/Units 05:48 11:06 16:55 RBC (3.80-5.40) m/uL Hgb (11.4-16.0) gm/dL Hct (34.0-46.0) % MCV (80.0-100.0) fL RDW (11.5-15.5) % PT 21.1 H (9.9-11.9) sec INR 2.06 H (0.90-1.11) POC Glucose (mg/dL) 168 H 195 H (75-99) mg/dL 09/01/20 09/02/20 Range/Units 21:39 05:08 RBC 2.52 L (3.80-5.40) m/uL Hgb 8.6 L (11.4-16.0) gm/dL Hct 25.6 L (34.0-46.0) % MCV 101.5 H (80.0-100.0) fL RDW 16.6 H (11.5-15.5) % PT (9.9-11.9) sec INR (0.90-1.11) POC Glucose (mg/dL) 186 H (75-99) mg/dL
--- NOTE | 2020-09-02 13:08 | P.PN ---
Subjective Progress Note Date: 09/02/20 The patient is seen today 08/27/2020 in follow-up on the regular medical floor. She was admitted for acute hypoxic respiratory failure secondary to CoVID 19 pneumonitis. She was outside the window for Remdesivir. She did receive 2 units of convalescent plasma. She remains awake and alert in no acute distress. Confused to place. Calling out for her father. Currently requiring 8 L high flow nasal cannula to maintain O2 saturations in the 90s. Chest x-ray continues to show diffuse bilateral airspace disease. White count 7.2. Hemoglobin 8.3. Lymphocytes 0.5. INR 2.6. D-dimer 0.55. Sodium 147. Potassium 4.8. Creatinine 0.7. LDH 541. Remains on IV Solu-Medrol, Pepcid, vitamin supplement s. Anticoagulated with warfarin. Patient is seen today 08/28/2020 follow-up on the regular medical floor. She is currently resting quite comfortably in bed. Awake and alert in no acute distress. States she is breathing easier today today. Remains on 10 L high flow nasal cannula. She's afebrile. White count 9.4. Hemoglobin 8.4. INR 2.37. Sodium 143. Potassium 5.0. Creatinine 0.8. She remains on vitamin supplements, Pepcid, melatonin, IV Solu-Medrol, anticoagulated with warfarin. The patient is seen today 01/27/2021 follow-up on the regular medical floor. She is awake and alert in no acute distress. Resting fairly comfortably in bed. Maintaining O2 saturations in the 90s on 8 L high flow nasal cannula. Currently afebrile. Hemodynamically stable. INR 2.65. Blood glucose 156. She remains on vitamin supplements, Pepcid, melatonin, IV Solu-Medrol, anticoagulated with warfarin. Computed tomography scan of the brain reveals no new acute intracranial hemorrhage or midline shift. Left-sided postsurgical changes redemonstrated. There is [id number] diffuse age-related cerebral atrophy and chronic small vessel ischemic changes redemonstrated. No changes compared to previous CT 2 weeks ago. The patient is seen today 08/30/2020 follow-up on the regular medical floor. He is currently resting in bed. She is now requiring 15 L high flow nasal cannula in addition to a nonrebreather mask. Increased oxygen requirement since yesterday. He is less responsive. INR 2.81. Glucose 155. She remains on vitamin supplements, Pepcid, melatonin, IV Solu-Medrol, anticoagulated with warfarin. The patient is seen today 08/31/2020 follow-up on the regular medical floor. She is currently sitting up in bed. Awake and alert. Following simple commands. She is requiring 15 L high flow nasal cannula and a nonrebreather mask to maintain O2 saturations in the 90s. Chest x-ray reveals bilateral airspace disease. Arterial blood gases were drawn on 100% FiO2 and the patient's PT O2 is 203, pCO2 52, pH 7.42. INR 2.65. Glucose 197. She has been slow to progress. Remains on IV Solu-Medrol, anti-coagulated with warfarin, Pepcid, melatonin, vitamin supplements. On 09/01/2020, patient is comfortable in bed on 15 L of oxygen by nasal cannula. No significant respiratory distress. She is not using the 100% nonrebreather mask for now. She remains on IV Solu-Medrol 40 mg every 12 hours pages also on long-term articulation with warfarin and his PT/INR is being monitored. She is on Levemir insulin 12 units daily and her blood sugars are being monitored. No altered mentation. No nausea. No vomiting. No diarrhea. No abdominal pain. She remains on Pepcid, melatonin and vitamins.The chest x-ray that was done today showed cardiomegaly and diffuse interstitial and patchy airspace opacities without any significant change compared to the earlier CAT scan from 08/31/2020. On 09/02/2020, the patient is feeling well. She reports that her breathing is gradually improving and she is currently down to 5 L of oxygen by nasal cannula with a pulse ox ranging between 89 and 91%. Note that the patient was as high as 15 L in the 100% nonrebreather is mask approximately 48 hours ago. She has no chest pain. No shortness of breath. She is laying down comfortably in bed. No cough or sputum production. She was able to tolerate her diet. No nausea. No vomiting. No diarrhea. No altered mentation. No abdominal pain. She is still on Levemir 12 units along with a slight scale insulin coverage. She is on Solu-Medrol 40 mg every 6 hours. She is also on long-term anticoagulation with warfarin. Objective - Vital Signs Vital signs: Vital Signs Temp 98.6 F 09/02/20 11:00 Pulse 78 09/02/20 11:00 Resp 19 09/02/20 11:00 BP 129/69 09/02/20 11:00 Pulse Ox 92 L 09/02/20 11:00 Intake & Output 09/01/20 09/02/20 09/02/20 18:59 06:59 18:59 Intake Total 600 840 Output Total 1750 350 Balance -1150 490 Weight 101.5 kg Intake: Intake, IV Titration 600 600 Amount Sodium Chloride 0.9% 1, 600 600 000 ml @ 50 mls/hr IV . Q20H TABATHA Rx#:[id number] Oral 240 Output: Urine 1750 350 Other: Voiding Method Indwelling Catheter Indwelling Catheter Indwelling Catheter # Bowel Movements 1 - Exam Gen: This is a pleasant 63-year-old female patient, alertness waxes and wanes, on 5 L high flow nasal cannula HEENT: Head is atraumatic, normocephalic. Pupils equal, round. Sclerae is anicteric. NECK: Supple. No JVD. No lymphadenopathy. No thyromegaly. LUNGS: Scattered rhonchi. No wheezes. Mild intercostal retractions. HEART: Regular rate and rhythm. 3/6 systolic murmur. ABDOMEN: Soft. Bowel sounds are present. No masses. No tenderness. Moses catheter in place. EXTREMITIES: No pedal edema. No calf tenderness. NEUROLOGICAL: Patient is awake, alert and oriented x3. Cranial nerves 2 through 12 are grossly intact. Psychiatric: Arousable, Normal mood, affect and normal mental status examination. Skin: No rashes - Labs CBC & Chem 7: 09/02/20 05:08 09/02/20 05:08 Labs: Abnormal Lab Results - Last 24 Hours (Table) 09/01/20 09/01/20 09/02/20 Range/Units 16:55 21:39 05:08 RBC (3.80-5.40) m/uL Hgb (11.4-16.0) gm/dL Hct (34.0-46.0) % MCV (80.0-100.0) fL RDW (11.5-15.5) % PT 18.1 H (9.9-11.9) sec INR 1.75 H (0.90-1.11) Carbon Dioxide (21.6-31.8) mmol/L BUN (9.0-27.0) mg/dL BUN/Creatinine Ratio (12.00-20.00) Ratio POC Glucose (mg/dL) 195 H 186 H (75-99) mg/dL ALT (8-44) U/L Total Protein (6.2-8.2) g/dL Albumin (3.80-4.90) g/dL Globulin (1.6-3.3) g/dL 09/02/20 09/02/20 09/02/20 Range/Units 05:08 05:08 11:12 RBC 2.52 L (3.80-5.40) m/uL Hgb 8.6 L (11.4-16.0) gm/dL Hct 25.6 L (34.0-46.0) % MCV 101.5 H (80.0-100.0) fL RDW 16.6 H (11.5-15.5) % PT (9.9-11.9) sec INR (0.90-1.11) Carbon Dioxide 32.5 H (21.6-31.8) mmol/L BUN 34.0 H (9.0-27.0) mg/dL BUN/Creatinine Ratio 48.57 H (12.00-20.00) Ratio POC Glucose (mg/dL) 101 H (75-99) mg/dL ALT 101 H (8-44) U/L Total Protein 4.8 L (6.2-8.2) g/dL Albumin 3.30 L (3.80-4.90) g/dL Globulin 1.5 L (1.6-3.3) g/dL Assessment and Plan Plan: 1 Acute hypoxic respiratory failure secondary to CoVID 19 pneumonia. Outside the window for Remdesivir. Did receive 2 units of convalescent plasma. Currently required 5 L high flow and the patient's oxygenation has improved significantly and the patient is maintaining a saturation around 90% while being on 5 L about 2 by nasal cannula. Chest x-ray is falling behind and there is still sign bilateral pulmonary infiltrates. 2 Recent history of hemorrhagic stroke with left subdural hematoma status post left frontal craniotomy. Computed tomography scan of the brain performed today 08/29/2020 revealed no acute intracranial hemorrhage or midline shift. Left- sided postsurgical changes redemonstrated. There is [id number] diffuse age-related cerebral atrophy and chronic small vessel ischemic changes. No significant change from recent computed tomography scan 13 days ago. 3 Acute toxic metabolic encephalopathy 4 History of pulmonary embolism and DVT. On Lovenox. 5 History of underlying coronary artery disease. 6 Benign essential hypertension. 7 Hypothyroidism. 8 Dyslipidemia. 9 Paroxysmal atrial fibrillation, presently in sinus rhythm. Anticoagulated with warfarin. Plan: Evaluation, the patient's oxygenation is improving. He is currently on 5 L of oxygen by nasal cannula to maintain a saturation above 90%. She is on IV Solu-Medrol and the dose has been tapered down to 40 mg every 6 hours . Blood sugars are being monitored. PT/INR subtherapeutic. Chest x-ray stable diffuse bilateral pulmonary infiltrates, unchanged. We'll continue to follow. She is slow to progress and recover, however she has demonstrated some improvement in her oxygenation. Involve physical therapy. We'll follow. Monitor PT/INR.
[2020-09-02 13:29] VITALS: BMI 38.4
[2020-09-02 17:30] LABS: Glucose,Whole Blood 103 mg/dL (75-99)
[2020-09-02] MEDS: HYDROcodone/APAP 5-325MG 1 EACH TAB PO PRN (17:42)
[2020-09-02] MEDS: MAGNESIUM HYDROXIDE 2,400 MG/10 ML CUP PO PRN (17:43)
[2020-09-02] MEDS ORDERED: WARFARIN 2.5 MG TAB PO ONE (18:00)
[2020-09-02 20:33] LABS: Glucose,Whole Blood 156 mg/dL (75-99)
[2020-09-02] MEDS: QUEtiapine 25 MG TAB PO SCH (21:06)
[2020-09-02] MEDS: MELATONIN 5 MG TABLET PO SCH (21:06)
[2020-09-03] MEDS: LEVOTHYROXINE 75 MCG TAB PO SCH (05:57)
[2020-09-03] MEDS: methylPREDNISolone SOD SUCCI 40 MG/ML 1 ML VIAL IV SCH ×2 (05:57→12:13)
[2020-09-03 06:50] LABS: Glucose,Whole Blood 110 mg/dL (75-99)
[2020-09-03] MEDS: INSULIN ASPART (NovoLOG) 100 UNIT/ML VIAL SQ SCH ×2 (07:44→12:13)
--- NOTE | 2020-09-03 08:37 | P.DS ---
Providers Date of admission: 08/16/20 11:47 Expected date of discharge: 09/03/20 Attending physician: Alexandra Orta MD Consults: 08/16/20 11:46 Consult Physician Urgent Consulting Provider: Nato Nava Consult Reason/Comments: COVID pneumonia Do you want consulting provider notified?: Yes 08/17/20 10:26 Consult Physician Routine Consulting Provider: James Nava Consult Reason/Comments: change in mental status, r/o central insipidius Do you want consulting provider notified?: Yes 08/17/20 12:15 Consult Physician Stat Consulting Provider: Maximilian Isidro Consult Reason/Comments: R/O Diabetes insipidis Do you want consulting provider notified?: Already Contacted 08/21/20 17:03 Consult Physician Stat Consulting Provider: Adan Eagle Consult Reason/Comments: new onset afib Do you want consulting provider notified?: Yes Primary care physician: Eddy Siu [facility] Course: Ms. Sutherland is a 64 years old female patient of Dr. Siu with past medica l history of coronary artery disease, hypertension, history of DVT and pulmonary embolism in 2002, fibromyalgia, asthma who presented to the hospital with worsening shortness of breath associated with change in mental status for the past 24 hours. Patient was in [facility] for subdural hemorrhage associated with meningioma in the left frontal lobe. Patient underwent left frontal craniotomy and was discharged on 08/13 on seizure precaution medication and pain medication. Patient's daughter is an RN who checked her oxygen at home which was saturating at 38%. Patient was brought to the hospital by EMS as patient was found unresponsive with her oxygen in the 40s and was placed on a BiPAP. Patient is unable to provide any history as she Is confused. Called patient's who stated that patient was doing well post discharge until last night when she became short of breath and confused. Patient did have acute stroke from the subdural hemorrhage causing right arm and right leg weakness associated with a phase ER. Patient was in the hospital for 6 weeks and recovered from both right upper and lower extremity weakness and a phasia. Patient was smoking at home post discharge. She was evaluated by her daughter who is an RN who insisted on calling EMS as she did not appear well.On evaluation in the ER patient was found to have bilateral groundglass opacities concerning for call with pneumonia. Vital suggested temp of 97.9 pulse 81 blood pressure 122/78 respiratory rate of 20. Call with 19 was positive. WBC 5.8 hemoglobin 10.4. ABG was obtained with a pO2 of 55 pCO2 of 44 . Patient's sodium is 146 chloride 117 BUN 48 creatinine 1.01 glucose 110 AST 74 8079 magnesium 2.5 proBNP 1560 LDH 2556 troponin negative 1 CRP 220. INR is elevated at 2.6. Pulmonary consult was placed. Patient placed on Solu-Medrol 60 every 6, zinc sulfide 220 vitamin C 1000 mg daily. EKG was normal sinus rhythm with no ST or segment depression or elevation. 08/17 patient assessed in ICU currently on BiPAP. Patient is oriented 2. Patient was not able to tolerate being off BiPAP for even a few minutes to take her medications. Patient is currently on 100% FiO2 on BiPAP saturating at 91- 92% vitals otherwise stable temp of 98.8 pulse 75 respiratory rate 27 blood pressure 129/53. Patient has a drop of hemoglobin from 10.4-8 today with MCV 103. INR is 1.8 subtherapeutic, elevated APTT 50 in origin and d-dimer 0.97. PCO2 is 46 pO2 71 bicarb 28 with a pH of 7.37, sodium 146 chloride 1:15, BUN 48 creatinine 0.87 glucose 125. Alkaline phosphatase has increased to 215 from 1:15, AST increased from 7 to 151 ALT increased from 79 to 201. Ultrasound abdomen ordered to evaluate for liver and gallbladder. 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 Patient is unable to take oral medication will switch patient's medication to IV today 08/18: Patient remains in the intensive care unit on BiPAP. She maintains a pulse ox of 91-96% but quickly drops if BiPAP is removed. She's been afebrile, heart rate 73, blood pressure 146/75. Repeat blood work reveals WBC 6.3, hemoglobin 10, platelet count 173. INR is 3.1. Fibrinogen 572, d-dimer 1.09. Sodium 152, potassium 4.4, chloride 117, CO2 31, BUN 48 and creatinine 0.89. TSH 0.305. ProBNP 1290. C-reactive protein 87.9. CK 22, LDH 2721. Blood sugars running in the 120s and 130s. Repeat chest x-ray reveals continued bilateral airspace disease. Patient has been seen by neurology with recommendations to continue Keppra 500 mg twice daily for seizure prophylaxis. Records from [facility] to be obtained. Patient was started on desmopressin 0.05 mg 1 tablet twice a day for central diabetes insipidus. Vitamin B-12 and folate levels ordered. TSH and ammonia level. Thiamine was started. Patient was also seen by nephrology for hypernatremia and started on normal saline at 50 mL per hour for now. 08/19: Patient remains in the intensive care unit oxygen is down to 80% on BiPAP with pulse ox running between 89 and 92. She has been afebrile, heart rate 73, blood pressure 101/59. Pulse ox drops if BiPAP is removed. We will start a soft diet as she is stating she is hungry. Midline was placed yesterday. Repeat blood work reveals WBC 6.5, hemoglobin 9.2, platelet count 161. D-dimer 2.63, fibrinogen 503, INR 4.1. Creatinine 0.81. Blood sugars run between 146 and 225. Repeat chest x-ray reveals slight improvement of diffuse infiltrate can be compatible with atypical pneumonia. Patient received DDAVP yesterday. She is currently on D5W at 60 mL per hour. She remains on Solu-Medrol 60 mg IV every 6 hours. 08/20: Patient remains in intensive care unit. She is on BiPAP and desats quickly if this is removed down to 75. She is confused and has pulled off her BiPAP. She is able to a very little today due to desaturation. Daughter has been updated during the night of the patient's status. She has been afebrile, heart rate 80, respiratory rate 26-44, blood pressure 169/88, pulse ox 92% on 70% FiO2 on BiPAP. Repeat blood work reveals Gaby BC 6.3, hemoglobin 9.6, platelet count 158. Lymphocytes are 0.7. BUN 36 creatinine 0.72. Blood sugars running between 130 348. Ferritin 2476. AST 92, ALT 198, alkaline phosphatase 294. LDH 2668. CK 0.1, C-reactive protein 22.7. Urine culture is showing gram- negative bacilli. Blood culture no growth after 72 hours 2 specimens. Repeat chest x-ray reveals cardiomegaly with bilateral multifocal acute infiltrates consistent with COVID-19. Patient is continued on IV fluids of D5W at 60 mL per hour and change today to half-normal saline. Patient received 1 dose of IV Lasix this morning. Desmopressin was discontinued as central diabetes insipidus was ruled out. 08/21: The patient is more alert today. She is now on high flow AirVo with FiO2 of 85%. Patient was able to tolerate chopped diet as morning. She was started yesterday on TPN. She is complaining of right shoulder pain which is of chronic nature and Hundred resumed as well as lidocaine cream started. Patient has been afebrile, heart rate 82, blood pressure 156/75. Respiratory rate 24. Pulse ox 93% on FiO2 of 85%. monitor technician is a sinus rhythm. Repeat chest x-ray reveals stable bilateral lung infiltrates. Repeat blood work reveals WBC 7.4, hemoglobin 9.5. Creatinine 0.73. Blood sugars between 148 and 165. Liver function tests remain elevated with total bilirubin 1, AST 78, ALT 233, alkaline phosphatase 286. LDH is 2566. CK less than 20. C-reactive protein 10.8. Urine culture finalized with E. coli. Blood cultures showing no growth. 08/22: Patient remains in the intensive care unit. Oxygen is down to 70% with pulse ox of 95%. Heart rate is 140 and patient went into atrial fibrillation currently transitioned to oral amiodarone and Cardizem drip. TPN was started and patient ate 50% of her breakfast this morning. She has been afebrile. Blood pressure 147/83. Repeat blood work reveals WBC 8, hemoglobin 9.4. Blood sugars running between 228 and 300. Electrolytes normal, creatinine 0.72. Phosphorus 3.1, magnesium 2.4. Ferritin 2011, total bilirubin 0.6, AST 75, ALT 288, alkaline phosphatase 282. LDH 2469. CK less than 20. 08/23: Patient remains in the intensive care unit but has progressed very well over the past 24 hours and is scheduled for transfer out to the [facility] floor. Repeat chest x-ray reveals stable diffuse bilateral infiltrates. Dr. English has recommended continued treatment for blood pressure and his blood pressure is stable, clonidine patch can be discontinued. Patient continued on beta josh and amiodarone for another 72 hours and then amiodarone dose can be decreased. The patient can be switched back to oral Coumadin. She has been afebrile, heart rate 69, blood pressure 133/71, pulse ox 95% on high flow nasal cannula 15 L. WBC 9.0, hemoglobin 8.2. Electrolytes normal, BUN 42 and creatinine 0.77. Blood sugars running between 179 and 291. LDH 1980. Total bilirubin 0.5. AST 37, ALT 211, alkaline phosphatase 258. 08/24: Patient continues to have cough. Patient has been afebrile, heart rate 80, blood pressure 138/79, pulse ox 94-97% on 15 L high flow nasal cannula. INR is 1.2. Patient was started on Coumadin last night of 5 mg, pharmacy dosing. Blood sugar 129 244.She is very much looking forward to getting home eventually. She is agreeable to subacute rehab and PT has recommended subacute rehab. We will plan for his clubhouse manager/director social following up tomorrow. 08/25: Patient's pain status continues to improve. She has been afebrile, heart rate 76, blood pressure 163/74, pulse ox is 98% on 10 L high flow nasal cannula. WBC 8.6, hemoglobin 9.3, platelet count 226. Patient denies any abdominal pain . She is tolerating diet. She is continued on IV Solu-Medrol. INR today 1.7 and pharmacy is dosing Coumadin. Sodium 147, potassium 5.4, chloride 113, CO2 27.5. BUN 55 and creatinine 1. Blood sugars run between 137-188. Liver function tests remain elevated with AST 51, ALT 342, alkaline phosphatase 265. Nephrology has discontinued potassium supplement and considering D5W tomorrow sodium remains elevated. PT and OT to start working with the patient is a need for subacute rehab. 08/26: She has been afebrile, heart rate 75, blood pressure 106/76, pulse ox 90- 96% on 8 L high flow nasal cannula. Blood sugars running between 150 and 218. Repeat INR 2.29 and Lovenox will be discontinued. Patient continues to complain of weakness. She denies having any diarrhea. Patient is awake and alert. No mental status changes. manager report is in process of making discharge plans with patient's . 08/27: Patient has been afebrile, heart rate 78, blood pressure 133/75, pulse ox 92% on 8 L nasal cannula. Patient states that she is feeling so-so but better since she is bit on the MedSurg floor. The patient will update her to call social work regarding discharge planning. INR is 2.6. W BC 7.2, hemoglobin 8.3, platelet count 282. Blood sugars running between 118 197. Sodium 147, potassium 4.8. BUN 41 creatinine 0.7. ALT 189, alkaline phosphatase 192, LDH 541, C-reactive protein 0.9. D-dimer 0.55. 08/28: Patient has no new complaints. Respiratory status is slowly improving. Her pulse ox today is at 90% on 10 L nasal cannula, afebrile, heart rate 76, blood pressure 156/77. WBC 9.4, hemoglobin 8.4, platelet count 296. Blood sugars run between 132 and 239. Electrolytes are normal, creatinine 0.8. AST 29, ALT 170, alkaline phosphatase 176. Patient's has been contacted and updated regarding patient's progress. Anticipate discharge once oxygen need is down to 6 L. 08/29: Patient's oxygen was increased to 10 L high flow nasal cannula. It appears that she did not have any respiratory distress that would warrant this. Discussed with the nurse this morning that we will need to get a back to 8 and our goal will be 6 or below so that she can go to the correction on Tuesday. Patient's was updated via phone call by Dr. Ariza yesterday. Our discharge plan is for [facility] or [facility] on Tuesday. Patient has been afebrile, heart rate 71, blood pressure 168/77. Pulse ox 97% on 8 L high flow nasal cannula. INR is 2.65 and pharmacy is dosing. Blood sugars running between 156 and 233. Norvasc has been increased to twice daily 5 mg yesterday. Hydralazine will be resumed at 50 mg twice daily for blood pressure control. Patient is normally on hydralazine 100 mg 3 times daily. 08/30: Attempted to wean patient off the high flow nasal cannula. However she was intolerant pulse ox dropped to the 60s. She is currently on a 100% Ventimask with 15 L nasal cannula in place. Due to the hypoxia patient became confused and has sitter at the bedside. Her lungs sound still show congestion specifically at the left base with rhonchi and no wheezes. Patient remains afebrile, pulse rate 75, respirations 16 with shortness of breath noted with activity, blood pressure 147/73, pulse oxing 100% on a nonrebreather with 15 L high flow oxygen. 08/31: She continues to require 15 L of high flow oxygen via nasal cannula and a nonrebreather. With any activity or movement patient's pulse ox will drop down to the 70s. Respiratory therapy was in this morning to attempt to wean patient off of her oxygen requirements and were unsuccessful. Discussed with patient and her results of her chest x-ray and her poor prognosis. Questions were answered and complications were discussed. Chest x-ray this morning shows findings are similar. There is bilateral airspace disease. Lung volumes are low, correlate for pneumonia, edema, stable cardiomegaly 09/01: Patient's breathing status is improved today from yesterday. PO 100% on 15L nc. She states she feels much better today. Patient is afebrile, HR 91, BP 143/76. INR 2.06. CBG 166-185. Repeat chest x-ray reveals cardiomegaly with continued diffuse interstitial and patchy airspace opacities without significant change. Plan to continue current plan with possible discharge to rehab this week. 09/02: Pulse ox is now 91-93% on 6 L high flow nasal cannula. WBC 9.5, hemoglobin 8.6. CO2 32, creatinine 0.7. Blood sugars run between 94 and 186. INR is 1.75. Pharmacy is dosing Coumadin. Patient has completed treatment for UTI. Discharge plan is for [facility] and anticipate discharge tomorrow. Patient's , Kranthi, has been contacted via phone and updated regarding plan, all questions answered. 09/03: Patient complains of abdominal pain and was not able to eat very much breakfast. We've ordered a fleets enema and patient was able to have a bowel movement. She is currently pulse oxing 91% on 5 L and his able to go to the correction today. Patient would like to go today. She has been afebrile, heart rate 86, blood pressure 125/78. INR is 1.73. Patient will be discharged to [facility] today in stable condition. Moses catheter to remain in place and will be removed at [facility]. ASSESSMENT AND PLAN 1. Acute hypoxic respiratory failure secondary to COVID-19 Pneumonia and COPD exacerbation. 2. COVID-19 pneumonia. 3. COPD exacerbation. 4. Acute hemorrhagic stroke with acute left subdural hemorrhage with benign tumor status post left frontal craniotomy. Patient was discharged on August 13 from [facility]/rehab facility. 5. Acute toxic metabolic encephalopathy secondary to Covid 19, hyponatremia. 6. Central diabetes insipidus ruled out. 7. History of pulmonary embolism and DVT. 8. History of coronary artery disease. 9. Hypertension. 10. Hypothyroidism. 11. Hyperlipidemia. 12. Recurrent depression. 13. UTI. 14. Chronic right shoulder pain. 15. Severe protein calorie malnutrition. 16. Hyperglycemia secondary to steroids. Hemoglobin A1c is 5.6. 17. Hypernatremia. DISCHARGE PLAN Deshawn under the care of Dr. Ariza. Impression and plan of care have been directed as dictated by the signing physician. Karyn Tamayo nurse practitioner acting as scribe for signing physician. Patient Condition at Discharge: Good Plan - Discharge Summary Discharge Rx Participant: No New Discharge Prescriptions: New Amiodarone [Cordarone] 200 mg PO BID tab Thiamine [Vitamin B-1] 100 mg PO DAILY tab Cyanocobalamin [Vitamin B-12] 1,000 mcg PO DAILY tab Ascorbic Acid [Vitamin C] 1,000 mg PO DAILY tab hydrALAZINE HCL [Apresoline] 50 mg PO BID tab Warfarin [Coumadin] 2 mg PO DAILY #30 tab Lidocaine 4% Cream [Lmx 4] 1 applic TOPICAL Q4H PRN applic PRN Reason: Pain Metoprolol Tartrate [Lopressor] 50 mg PO BID tab Melatonin 5 mg PO HS tablet Magnesium Hydroxide [Milk of Magnesia Concentrate] 2,400 mg PO DAILY PRN ml PRN Reason: Constipation INSULIN ASPART (NovoLOG) [NovoLOG (formulary)] 0 unit SQ ACHS vial Zinc Sulfate [Orazinc] 220 mg PO DAILY cap QUEtiapine [SEROquel] 25 mg PO HS tab Calcium Carbonate [Tums] 1,000 mg PO QID PRN chew PRN Reason: Heartburn Continue Famotidine [Pepcid] 20 mg PO DAILY Docusate [Colace] 100 mg PO DAILY Cholecalciferol [Vitamin D3 (25 Mcg = 1000 Iu)] 1,000 unit PO QAM Venlafaxine HCl ER [Effexor XR] 150 mg PO DAILY amLODIPine BESYLATE [Norvasc] 5 mg PO BID Albuterol Inhaler [Ventolin Hfa Inhaler] 1 puff INHALATION RT-Q6H PRN PRN Reason: Shortness Of Breath Bisacodyl 10 mg PO DAILY Fluticasone/Vilanterol [Breo Ellipta 100-25 Mcg Inhaler] 1 puff INHALATION RT-DAILY levETIRAcetam [Keppra] 500 mg PO Q12HR Levothyroxine Sodium [Synthroid] 37.5 mcg PO DAILY Changed dexAMETHasone [Dexamethasone] 6 mg PO DAILY 5 Days #0 HYDROcodone/APAP 5-325MG [Hundred 5-325] 1 tab PO Q4HR PRN #18 tab PRN Reason: Pain Discontinued Warfarin [Coumadin] 2.5 mg PO HS Pregabalin [Lyrica] 150 mg PO BID Pravastatin Sodium [Pravachol] 10 mg PO HS Carvedilol [Coreg] 25 mg PO BID hydrALAZINE HCL [Apresoline] 100 mg PO TID Miconazole Nitrate [Desenex] 1 applic TOPICAL BID Discharge Medication List Cholecalciferol [Vitamin D3 (25 Mcg = 1000 Iu)] 1,000 unit PO QAM 12/28/15 [History] Docusate [Colace] 100 mg PO DAILY 12/28/15 [History] Famotidine [Pepcid] 20 mg PO DAILY 12/28/15 [History] Venlafaxine HCl ER [Effexor XR] 150 mg PO DAILY 12/28/15 [History] amLODIPine BESYLATE [Norvasc] 5 mg PO BID 07/27/17 [History] Albuterol Inhaler [Ventolin Hfa Inhaler] 1 puff INHALATION RT-Q6H PRN 08/16/20 [History] Bisacodyl 10 mg PO DAILY 08/16/20 [History] Fluticasone/Vilanterol [Breo Ellipta 100-25 Mcg Inhaler] 1 puff INHALATION RT- DAILY 08/16/20 [History] Levothyroxine Sodium [Synthroid] 37.5 mcg PO DAILY 08/16/20 [History] levETIRAcetam [Keppra] 500 mg PO Q12HR 08/16/20 [History] Amiodarone [Cordarone] 200 mg PO BID tab 08/25/20 [Rx] Ascorbic Acid [Vitamin C] 1,000 mg PO DAILY tab 09/03/20 [Rx] Calcium Carbonate [Tums] 1,000 mg PO QID PRN chew 09/03/20 [Rx] Cyanocobalamin [Vitamin B-12] 1,000 mcg PO DAILY tab 09/03/20 [Rx] HYDROcodone/APAP 5-325MG [Hundred 5-325] 1 tab PO Q4HR PRN #18 tab 09/03/20 [Rx] INSULIN ASPART (NovoLOG) [NovoLOG (formulary)] 0 unit SQ ACHS vial 09/03/20 [Rx] Lidocaine 4% Cream [Lmx 4] 1 applic TOPICAL Q4H PRN applic 09/03/20 [Rx] Magnesium Hydroxide [Milk of Magnesia Concentrate] 2,400 mg PO DAILY PRN ml 09/03/20 [Rx] Melatonin 5 mg PO HS tablet 09/03/20 [Rx] Metoprolol Tartrate [Lopressor] 50 mg PO BID tab 09/03/20 [Rx] QUEtiapine [SEROquel] 25 mg PO HS tab 09/03/20 [Rx] Thiamine [Vitamin B-1] 100 mg PO DAILY tab 09/03/20 [Rx] Warfarin [Coumadin] 2 mg PO DAILY #30 tab 09/03/20 [Rx] Zinc Sulfate [Orazinc] 220 mg PO DAILY cap 09/03/20 [Rx] dexAMETHasone [Dexamethasone] 6 mg PO DAILY 5 Days #0 09/03/20 [Rx] hydrALAZINE HCL [Apresoline] 50 mg PO BID tab 09/03/20 [Rx] Follow up Appointment(s)/Referral(s): Damon English MD [STAFF PHYSICIAN] - 2 Weeks Eddy Siu MD [Primary Care Provider] - 1-2 days
[2020-09-03] MEDS ORDERED: NA PHOS,M-B/NA PHOS,DI-BA 133 ML ENEMA RECTAL STA (08:45)
[2020-09-03] MEDS ORDERED: CHOLECALCIFEROL 25 MCG (1000 IU) TABLET PO SCH (09:00)
[2020-09-03] MEDS: INSULIN DETEMIR (LEVEMIR) 100 UNIT/ML SYR SQ SCH (09:44)
[2020-09-03] MEDS: METOPROLOL TARTRATE 50 MG TAB PO SCH (09:44)
[2020-09-03] MEDS: amLODIPine 5 MG TAB PO SCH (09:44)
[2020-09-03] MEDS: AMIODARONE 200 MG TAB PO SCH (09:45)
[2020-09-03] MEDS: hydrALAZINE HCL 50 MG TAB PO SCH (09:45)
[2020-09-03] MEDS: FAMOTIDINE 20 MG TAB PO SCH (09:45)
[2020-09-03] MEDS: CYANOCOBALAMIN 500 MCG TAB PO SCH (09:45)
[2020-09-03] MEDS: ASCORBIC ACID 500 MG TAB PO SCH (09:45)
[2020-09-03] MEDS: levETIRAcetam 500 MG TAB PO SCH (09:46)
[2020-09-03] MEDS: VENLAFAXINE HCL ER 150 MG CAP PO SCH (09:46)
[2020-09-03] MEDS: THIAMINE 100 MG TAB PO SCH (09:46)
[2020-09-03] MEDS: ZINC SULFATE 220 MG CAP PO SCH (09:46)
[2020-09-03] MEDS: DOCUSATE 100 MG CAP PO SCH (09:46)
[2020-09-03 10:57] LABS: INR 1.73 (0.90-1.11); Prothrombin Time 17.9 sec (9.9-11.9)
[2020-09-03 11:17] LABS: Glucose,Whole Blood 154 mg/dL (75-99)
--- NOTE | 2020-09-03 11:33 | P.PN ---
Subjective Progress Note Date: 09/03/20 Principal diagnosis: COVID 19 pneumonia This is a 64-year-old white female patient that was admitted on 08/16/2020 with a diagnosis of COVID 19 pneumonitis, patient required intensive care admission, requiring high flow oxygen, and BiPAP support. She was out of the window for R emdesivir, she is status post transfusion with 2 units of convalescent plasma, she remains on IV steroids currently down to 40 mg every 6 hours, she is on Coumadin, and she is on Lovenox at 80 mg twice daily. He is awake and alert, she is currently down to 8 L of oxygen, she has not required BiPAP support overnight, pulse ox is 94-96%, doing well, no fever or chills, breathing has much improved since admission, still has exertional dyspnea, overall she is weak, she is currently participating with physical therapy, vital signs have been stable, is not had a chest x-ray since August which showed stable diffuse bilateral infiltrates. Yesterday's INR was 1.7, last d-dimer from 2020 was 1.21. The patient is seen today 08/27/2020 in follow-up on the regular medical floor. She was admitted for acute hypoxic respiratory failure secondary to CoVID 19 pneumonitis. She was outside the window for Remdesivir. She did receive 2 units of convalescent plasma. She remains awake and alert in no acute distress. Confused to place. Calling out for her father. Currently requiring 8 L high flow nasal cannula to maintain O2 saturations in the 90s. Chest x-ray continues to show diffuse bilateral airspace disease. White count 7.2. Hemoglobin 8.3. Lymphocytes 0.5. INR 2.6. D-dimer 0.55. Sodium 147. Potassium 4.8. Creatinine 0.7. LDH 541. Remains on IV Solu-Medrol, Pepcid, vitamin supplements. Anticoagulated with warfarin. Patient is seen today 08/28/2020 follow-up on the regular medical floor. She is currently resting quite comfortably in bed. Awake and alert in no acute distress. States she is breathing easier today today. Remains on 10 L high flow nasal cannula. She's afebrile. White count 9.4. Hemoglobin 8.4. INR 2.37. Sodium 143. Potassium 5.0. Creatinine 0.8. She remains on vitamin supplements, Pepcid, melatonin, IV Solu-Medrol, anticoagulated with warfarin. The patient is seen today 01/27/2021 follow-up on the regular medical floor. Sunita pérez is awake and alert in no acute distress. Resting fairly comfortably in bed. Maintaining O2 saturations in the 90s on 8 L high flow nasal cannula. Currently afebrile. Hemodynamically stable. INR 2.65. Blood glucose 156. She remains on vitamin supplements, Pepcid, melatonin, IV Solu-Medrol, anticoagulated with warfarin. Computed tomography scan of the brain reveals no new acute intracranial hemorrhage or midline shift. Left-sided postsurgical changes redemonstrated. There is [id number] diffuse age-related cerebral atrophy and chronic small vessel ischemic changes redemonstrated. No changes compared to previous CT 2 weeks ago. The patient is seen today 08/30/2020 follow-up on the regular medical floor. He is currently resting in bed. She is now requiring 15 L high flow nasal cannula in addition to a nonrebreather mask. Increased oxygen requirement since yesterday. He is less responsive. INR 2.81. Glucose 155. She remains on vitamin supplements, Pepcid, melatonin, IV Solu-Medrol, anticoagulated with warfarin. The patient is seen today 08/31/2020 follow-up on the regular medical floor. She is currently sitting up in bed. Awake and alert. Following simple commands. She is requiring 15 L high flow nasal cannula and a nonrebreather mask to maintain O2 saturations in the 90s. Chest x-ray reveals bilateral airspace disease. Arterial blood gases were drawn on 100% FiO2 and the patient's PT O2 is 203, pCO2 52, pH 7.42. INR 2.65. Glucose 197. She has been slow to progress. Remains on IV Solu-Medrol, anti-coagulated with warfarin, Pepcid, melatonin, vitamin supplements. On 09/01/2020, patient is comfortable in bed on 15 L of oxygen by nasal cannula. No significant respiratory distress. She is not using the 100% nonrebreather mask for now. She remains on IV Solu-Medrol 40 mg every 12 hours pages also on long-term articulation with warfarin and his PT/INR is being monitored. She is on Levemir insulin 12 units daily and her blood sugars are being monitored. No altered mentation. No nausea. No vomiting. No diarrhea. No abdominal pain. She remains on Pepcid, melatonin and vitamins.The chest x-ray that was done today showed cardiomegaly and diffuse interstitial and patchy airspace opacities without any significant change compared to the earlier CAT scan from 08/31/2020. On 09/02/2020, the patient is feeling well. She reports that her breathing is gradually improving and she is currently down to 5 L of oxygen by nasal cannula with a pulse ox ranging between 89 and 91%. Note that the patient was as high as 15 L in the 100% nonrebreather is mask approximately 48 hours ago. She has no chest pain. No shortness of breath. She is laying down comfortably in bed. No cough or sputum production. She was able to tolerate her diet. No nausea. No vomiting. No diarrhea. No altered mentation. No abdominal pain. She is s till on Levemir 12 units along with a slight scale insulin coverage. She is on Solu-Medrol 40 mg every 6 hours. She is also on long-term anticoagulation with warfarin. On 09/03/2020 patient seen in follow-up on medical floor, she is currently on 6 L of oxygen her pulse ox of 91%, this is a recent increase after the patient was rolled, and her oxygen level dropped down a little bit but she has been on 5 L and her pulse ox had been around 97-98%, -7 stable, no fever or chills, she denies any worsening dyspnea, lung sounds reveal scattered crackles bilaterally, vital signs have essentially been stable, she's had no acute events overnight, she appears to be a bit fluid overloaded, with the mild lower extremity edema, is still receiving IV fluids 0.9, satting at a rate of 50 ML per hour, she's been tolerating oral intake, she has had no nausea or vomiting, she did receive enema this morning because she hasn't had a bowel movement a couple of days, however she is passing gas, abdomen is soft. Today's labs have been reviewed, showing white blood cell, 9.5, hemoglobin is 8.6, today's INR is 1.73, sodium is 142, potassium is 4.8, chloride is 103, CO2 32, BUN is 34 creatinine 0.7, last L DH on 08/27/2020 was down to 541, significantly improved from admission LDH of 2556, and her last CRP was 0.9 on 08/27/2020, down from 220.6 on admission on the generic second 2020, overall clinically improving, although generally weak. Physical therapy has been consulted, and recommendation has been made for ECF placement, and discharged planning is in progress for discharge planning is in progress for discharge to [facility] nursing and rehab today Objective - Vital Signs Vital signs: Vital Signs Temp 98.3 F 09/03/20 09:32 Pulse 86 09/03/20 09:32 Resp 17 09/03/20 09:32 BP 125/78 09/03/20 09:32 Pulse Ox 91 L 09/03/20 09:32 Intake & Output 09/02/20 09/03/20 09/03/20 18:59 06:59 18:59 Intake Total 960 560 Output Total 1900 900 Balance -940 -340 Weight 101.5 kg 104.1 kg Intake: IV 200 Dextrose 5%-0.45% NaCl 1, 200 000 ml @ 20 mls/hr IV . Q24H [facility] Rx#:[id number] Oral 960 360 Output: Urine 1900 900 Uretheral ([place]) 1100 Other: Voiding Method Indwelling Catheter Indwelling Catheter Indwelling Catheter # Voids 1 - Exam GENERAL EXAM: Alert, active, very pleasant, obese 64-year-old white female, currently on 6 L of oxygen pulse ox of 91% comfortable in no apparent distress. HEAD: Normocephalic/atraumatic. EYES: Normal reaction of pupils, equal size. Conjunctiva pink, sclera white. NOSE: Clear with pink turbinates. THROAT: No erythema or exudates. NECK: No masses, no JVD, no thyroid enlargement, no adenopathy. CHEST: No chest wall deformity. Symmetrical expansion. LUNGS: Equal air entry with reddish breath sounds, CVS: Regular rate and rhythm, normal S1 and S2, no gallops, no murmurs, no rubs ABDOMEN: Soft, nontender. No hepatosplenomegaly, normal bowel sounds, no guarding or rigidity. EXTREMITIES: No clubbing, no edema, no cyanosis, 2+ pulses and upper and lower extremities. MUSCULOSKELETAL: Muscle strength and tone normal. SPINE: No scoliosis or deformity SKIN: No rashes CENTRAL NERVOUS SYSTEM: Alert and oriented -3. No focal deficits, tone is normal in all 4 extremities. PSYCHIATRIC: Alert and oriented -3. Appropriate affect. Intact judgment and insight. - Labs CBC & Chem 7: 09/02/20 05:08 09/02/20 05:08 Labs: Abnormal Lab Results - Last 24 Hours (Table) 09/02/20 09/02/20 09/03/20 Range/Units 17:17 20:32 06:47 PT (9.9-11.9) sec INR (0.90-1.11) POC Glucose (mg/dL) 103 H 156 H 110 H (75-99) mg/dL 09/03/20 09/03/20 Range/Units 07:05 11:15 PT 17.9 H (9.9-11.9) sec INR 1.73 H (0.90-1.11) POC Glucose (mg/dL) 154 H (75-99) mg/dL Assessment and Plan Plan: Assessment: #1. Acute hypoxemic respiratory failure second to COVID 19 pneumonia/pneumonitis, patient missed the Remdesivir window but did receive 2 units of convalescent plasma received anticoagulation in the form of Lovenox at therapeutic doses, and IV steroids. Her oxygenation has gradually improved altho ugh patient still requires supplemental oxygen currently at 5 L/m today on 09/03/2020 #2. Recent history of hemorrhagic stroke with left subdural hematoma, status post left frontal craniotomy and evacuation #3. Metabolic encephalopathy, improved #4. History of pulmonary embolism and deep venous thrombosis #5. History of coronary artery disease #6. Benign essential hypertension #7. Hypothyroidism #8. Hyperlipidemia #9. History of problems point atrial fibrillation on Coumadin #10. Hypernatremia, Improved Plan: Hep-Lock IV fluids, wean FiO2 to keep O2 sat at or above 90%, clinically stable, no acute events overnight, no worsening dyspnea, patient is generally weak, she was eval by physical therapy and recommendation is for rehab placement after discharge, discharge is currently in progress for transfer to [facility] and rehab. Stable for discharge from pulmonary perspective I performed a history & physical examination of the patient and discussed their management with my nurse practitioner, Meenu Baker. I reviewed the nurse practitioner's note and agree with the documented findings and plan of care. Lung sounds are positive for bilateral crackles. The findings and the impression was discussed with the patient. I attest to the documentation by the nurse practitioner. Time with Patient: Less than 30
[2020-09-03] MEDS: SODIUM CHLORIDE 0.9% 1,000 ML IV SCH (12:17)
[2020-09-03 15:14] VITALS: BP 144/82; PULSE 88; RESP 16; TEMP 97.9
[2020-09-03] MEDS ORDERED: WARFARIN 3 MG TAB PO ONE (18:00)
== END 2020-09-03 15:41 | DRG 177 ==
LOC: EC 10:04 → 3SCARD 11:47 → 2SICU 14:39 → 6NMEDSUR 08-23 15:09 → 4SSUR 09-02 16:34
PROVIDERS: ADMIT Internal Medicine; ATTEND Internal Medicine
PROC: 5A09557 Assistance with Respiratory Ventilation, Greater than 96 Consecutive Hours, Continuous Positive Airway Pressure (ICD-10-PCS; 2020-08-16)
PROC: XW13325 Transfusion of Convalescent Plasma (Nonautologous) into Peripheral Vein, Percutaneous Approach, New Technology Group 5 (ICD-10-PCS; 2020-08-16)
PROC: 05HF33Z Insertion of Infusion Device into Left Cephalic Vein, Percutaneous Approach (ICD-10-PCS; principal; 2020-08-18 13:30)
PROC: 5A0955A Assistance with Respiratory Ventilation, Greater than 96 Consecutive Hours, High Flow/Velocity Cannula (ICD-10-PCS; 2020-08-20)
PROC: 0DH67UZ Insertion of Feeding Device into Stomach, Via Natural or Artificial Opening (ICD-10-PCS; 2020-08-20)
PROC: 3E0G76Z Introduction of Nutritional Substance into Upper GI, Via Natural or Artificial Opening (ICD-10-PCS; 2020-08-20)
PROC: 3E0436Z Introduction of Nutritional Substance into Central Vein, Percutaneous Approach (ICD-10-PCS; 2020-08-20)
PROC: 02HV33Z Insertion of Infusion Device into Superior Vena Cava, Percutaneous Approach (ICD-10-PCS; 2020-08-21)
DX: U07.1 COVID-19 (principal); J12.82 Pneumonia due to coronavirus disease 2019; T83.518A Infection and inflammatory reaction due to other urinary catheter, initial encounter; N39.0 Urinary tract infection, site not specified; J96.01 Acute respiratory failure with hypoxia; G92 Toxic encephalopathy; E43 Unspecified severe protein-calorie malnutrition; E87.0 Hyperosmolality and hypernatremia; F33.9 Major depressive disorder, recurrent, unspecified; I69.351 Hemiplegia and hemiparesis following cerebral infarction affecting right dominant side; J44.1 Chronic obstructive pulmonary disease with (acute) exacerbation; J44.0 Chronic obstructive pulmonary disease with (acute) lower respiratory infection; G93.89 Other specified disorders of brain; I48.0 Paroxysmal atrial fibrillation; G31.9 Degenerative disease of nervous system, unspecified; G40.909 Epilepsy, unspecified, not intractable, without status epilepticus; I08.2 Rheumatic disorders of both aortic and tricuspid valves; B96.20 Unspecified Escherichia coli [E. coli] as the cause of diseases classified elsewhere; E86.0 Dehydration; I69.320 Aphasia following cerebral infarction; E03.9 Hypothyroidism, unspecified; E78.5 Hyperlipidemia, unspecified; I10 Essential (primary) hypertension; I25.10 Atherosclerotic heart disease of native coronary artery without angina pectoris; K21.9 Gastro-esophageal reflux disease without esophagitis; G89.29 Other chronic pain; M85.80 Other specified disorders of bone density and structure, unspecified site; D53.9 Nutritional anemia, unspecified; M54.5 Low back pain; M79.7 Fibromyalgia; M25.511 Pain in right shoulder; R73.9 Hyperglycemia, unspecified; T38.0X5A Adverse effect of glucocorticoids and synthetic analogues, initial encounter; M19.90 Unspecified osteoarthritis, unspecified site; Z68.37 Body mass index [BMI] 37.0-37.9, adult; F17.210 Nicotine dependence, cigarettes, uncomplicated; Z71.6 Tobacco abuse counseling; Z79.51 Long term (current) use of inhaled steroids; Z79.890 Hormone replacement therapy; Z79.2 Long term (current) use of antibiotics; Z79.01 Long term (current) use of anticoagulants; Z79.899 Other long term (current) drug therapy; Z86.011 Personal history of benign neoplasm of the brain; Z90.49 Acquired absence of other specified parts of digestive tract; Z90.710 Acquired absence of both cervix and uterus; Z96.653 Presence of artificial knee joint, bilateral; Z96.643 Presence of artificial hip joint, bilateral; Z87.42 Personal history of other diseases of the female genital tract; Z87.19 Personal history of other diseases of the digestive system; Z87.39 Personal history of other diseases of the musculoskeletal system and connective tissue; Z86.718 Personal history of other venous thrombosis and embolism; Z98.1 Arthrodesis status; Z95.828 Presence of other vascular implants and grafts; Z87.01 Personal history of pneumonia (recurrent); Z86.711 Personal history of pulmonary embolism; Z87.448 Personal history of other diseases of urinary system; Z98.890 Other specified postprocedural states; Y84.6 Urinary catheterization as the cause of abnormal reaction of the patient, or of later complication, without mention of misadventure at the time of the procedure; Z88.7 Allergy status to serum and vaccine; Z88.8 Allergy status to other drugs, medicaments and biological substances; Z88.1 Allergy status to other antibiotic agents; Z88.5 Allergy status to narcotic agent; Z91.013 Allergy to seafood; Z82.49 Family history of ischemic heart disease and other diseases of the circulatory system; Z80.8 Family history of malignant neoplasm of other organs or systems; Z83.2 Family history of diseases of the blood and blood-forming organs and certain disorders involving the immune mechanism; Z81.8 Family history of other mental and behavioral disorders; Z80.0 Family history of malignant neoplasm of digestive organs
CPT/HCPCS: 36410; 36415; 36573; 36600; 70450; 71045; 76700; 76937; 80048; 80053; 81001; 82140; 82550; 82607; 82728; 82747; 82805; 83036; 83520; 83605; 83615; 83735; 83880; 83930; 83935; 84100; 84145; 84295; 84300; 84439; 84443; 84478; 84484; 85025; 85027; 85379; 85384; 85610; 85730; 86140; 86850; 86900; 86901; 87040; 87077; 87086; 87186; 87635; 93005; 93306; 94660; 94760; 94762; 99285

== ENCOUNTER 2020-09-04 11:40 | Inpatient (IN) | payer MEDICARE, BC ==
[2020-09-04] MEDS ORDERED: SODIUM CHLORIDE 0.9% 500 ML 500 ML IV STA (12:08)
[2020-09-04] MEDS ORDERED: ONDANSETRON 4 MG/2 ML VIAL IVP STA (12:08)
[2020-09-04] MEDS ORDERED: HYDROmorphone 0.5 MG/0.5 ML SYRINGE IVP STA (12:08)
--- NOTE | 2020-09-04 12:44 | ED ---
Abdominal Pain HPI - General Chief Complaint: Abdominal Pain Stated Complaint: Abd Pain Time Seen by Provider: 09/04/20 11:45 Source: EMS, RN notes reviewed Mode of arrival: EMS Limitations: physical limitation - History of Present Illness Initial Comments: Patient is a 64 year old female with past medical history of DVT/PE, hypertension, hyperlipidemia, recent hemorrhagic stroke in June who presents to the emergency department with reported abdominal pain. The patient is a poor historian but the chart is reviewed and demonstrates the patient was just discharged to rehab yesterday. Prior to her discharge she was complaining of some abdominal pain. She was given a laxative and was able to move her bowels. Patient states that she continues to have pain upon transfer to the facility. Report some nausea, vomiting with hematemesis. Also reports to dark tarry stools. Patient is on Coumadin. As reported in the patient's chart that she h as also been suffering from vaginal bleeding however patient reports that this is common for her and she has suffered from this for a long time. Patient denies fevers or chills. Reports that abdominal pain is periumbilical. Patient has a Moses in place. She was hospitalized with Covid pneumonia. Facility reports that her saturations have been anywhere from 82-89%. No other alleviating, precipitating or modifying factors - Related Data Home Medications Medication Instructions Recorded Confirmed Cholecalciferol [Vitamin D3 (25 1,000 unit PO DAILY@1700 12/28/15 09/04/20 Mcg = 1000 Iu)] Docusate [Colace] 100 mg PO DAILY@1700 12/28/15 09/04/20 Famotidine [Pepcid] 20 mg PO DAILY@0600 12/28/15 09/04/20 Venlafaxine HCl ER [Effexor XR] 150 mg PO DAILY@0800 12/28/15 09/04/20 amLODIPine BESYLATE [Norvasc] 5 mg PO BID@0800,1700 07/27/17 09/04/20 Albuterol Inhaler [Ventolin Hfa 1 puff INHALATION RT-Q6H PRN 08/16/20 09/04/20 Inhaler] Bisacodyl 10 mg PO DAILY@0800 08/16/20 09/04/20 Fluticasone/Vilanterol [Breo 1 puff INHALATION RT-DAILY@0808/16/20 09/04/20 Ellipta 100-25 Mcg Inhaler] Levothyroxine Sodium [Synthroid] 37.5 mcg PO DAILY@0608/16/20 09/04/20 levETIRAcetam [Keppra] 500 mg PO BID@0800,209908/16/20 09/04/20 Amiodarone [Cordarone] 200 mg PO BID@0800,169909/04/20 09/04/20 Ascorbic Acid [Vitamin C] 1,000 mg PO DAILY@169909/04/20 09/04/20 Cyanocobalamin [Vitamin B-12] 1,000 mcg PO DAILY@169909/04/20 09/04/20 Glucerna Shake 1 can PO AC-TID 09/04/20 09/04/20 INSULIN ASPART (NovoLOG) [NovoLOG See Protocol SQ ACHS 09/04/20 09/04/20 (formulary)] Melatonin 5 mg PO HS@209909/04/20 09/04/20 Metoprolol Tartrate [Lopressor] 50 mg PO BID@0800,169909/04/20 09/04/20 Na Phos,M-B/Na Phos,Di-Ba [Fleet 133 ml RECTAL DAILY PRN 09/04/20 09/04/20 Adult] QUEtiapine [SEROquel] 25 mg PO HS@209909/04/20 09/04/20 Thiamine [Vitamin B-1] 100 mg PO DAILY@169909/04/20 09/04/20 Warfarin [Coumadin] 2 mg PO DAILY@169909/04/20 09/04/20 Zinc Sulfate [Orazinc] 220 mg PO DAILY@169909/04/20 09/04/20 bisacodyL [Dulcolax] 10 mg RECTAL DAILY PRN 09/04/20 09/04/20 dexAMETHasone [Dexamethasone] 6 mg PO DAILY@0809/04/20 09/04/20 hydrALAZINE HCL [Apresoline] 50 mg PO BID@0800,209909/04/20 09/04/20 Previous Rx's Medication Instructions Recorded Calcium Carbonate [Tums] 1,000 mg PO QID PRN chew 09/03/20 HYDROcodone/APAP 5-325MG [[place] 1 tab PO Q4HR PRN #18 tab 09/03/20 5-325] Lidocaine 4% Cream [Lmx 4] 1 applic TOPICAL Q4H PRN applic 09/03/20 Magnesium Hydroxide [Milk of 2,400 mg PO DAILY PRN ml 09/03/20 Magnesia Concentrate] Allergies Allergy/AdvReac Type Severity Reaction Status Date / Time erythromycin lactobionate Allergy RASH,VOMITI Verified 09/04/20 11:50 [From Erythrocin] NG influenza virus vaccine, Allergy LOW WHITE Verified 09/04/20 11:50 specific COUNT,INFLAMED [influenza virus LIVER vacc,specific] morphine Allergy Nausea & Verified 09/04/20 11:50 Vomiting shellfish derived [Shellfish] Allergy Swelling Verified 09/04/20 11:50 of tongue,rash iodine AdvReac Anaphylaxis Verified 09/04/20 11:50 Review of Systems ROS Statement: Those systems with pertinent positive or pertinent negative responses have been documented in the HPI. ROS Other: All systems not noted in ROS Statement are negative. Past Medical History Past Medical History: Asthma, Coronary Artery Disease (CAD), Deep Vein Thrombosis (DVT), Fibromyalgia, GERD/Reflux, Hyperlipidemia, Hypertension, Osteoarthritis (OA), Pneumonia, Thyroid Disorder Additional Past Medical History / Comment(s): "osteopenia, renal insufficiency, back pain chronic per patient" History of Any Multi-Drug Resistant Organisms: None Reported Past Surgical History: Appendectomy, Cholecystectomy, Hysterectomy, Joint Replacement Additional Past Surgical History / Comment(s): TOTAL RIGHT AND LEFT HIP, TOTAL RIGHT AND LEFT KNEE, BILATERAL FOOT SURGERY, BILATERAL HAND SURGERY-JOINT REPLACEMENT, [place] filter placement, left wrist tendon repair, posterior lateral decompression and fusion of the lumbar spine Past Anesthesia/Blood Transfusion Reactions: No Reported Reaction Past Psychological History: No Psychological Hx Reported Smoking Status: Current every day smoker Past Alcohol Use History: Occasional Past Drug Use History: Marijuana - Past Family History Father Family Medical History: Congestive Heart Failure (CHF) Additional Family Medical History / Comment(s): Father is alive at age 85 currently at the hospice home with history of mesothelioma Mother Family Medical History: Cancer, Deep Vein Thrombosis (DVT) Additional Family Medical History / Comment(s): Mother is alive at age 85 currently at the hospice home with history of dementia and GI cancer. Sister(s) Family Medical History: Cancer Additional Family Medical History / Comment(s): Patient has 3 sisters and 3 brothers. Daughter(s) Additional Family Medical History / Comment(s): Patient is 3 daughters and one has history of arrhythmia. Patient has 2 sons with no major medical problems. General Exam Limitations: physical limitation Course Vital Signs 09/04/20 09/04/20 11:44 14:01 Temperature 98.2 F Pulse Rate 116 H 109 H Respiratory 18 20 Rate Blood Pressure 118/65 128/68 O2 Sat by Pulse 96 99 Oximetry Medical Decision Making - Medical Decision Making Upon arrival patient is placed into room 9. A thorough history and physical exam was performed. Rectal exam was performed which demonstrates a small amount of brown stool. Sample is sent for a called. Patient does have some dried blood on her teeth. Patient has laboratory studies performed and [address] of her abdomen and pelvis. Hemoglobin is 91. INR is 2. Urinalysis is positive for nitrates, 98 white blood cells and few white blood cell clumps. Occult is positive. She was given 500 mL of normal saline followed by 4 mg of Zofran and 0.5 mg Dilaudid for pain control. Review of the patient's CT demonstrates fecal impaction with stercoral colitis. Enema ordered. Because of the hematemesis and rectal bleeding I did recommend admission for which the patient did agree to. Spoke with Dr. Ariza who agreed to admit the patient. She remained in stable conditions awaiting a bed - Lab Data Result diagrams: 09/04/20 12:47 09/04/20 12:50 Lab Results 09/04/20 09/04/20 09/04/20 Range/Units 12:35 12:47 12:50 WBC 8.8 (3.8-10.6) k/uL RBC 2.68 L (3.80-5.40) m/uL Hgb 9.1 L (11.4-16.0) gm/dL Hct 27.1 L (34.0-46.0) % MCV 101.2 H (80.0-100.0) fL MCH 34.0 (25.0-35.0) pg MCHC 33.6 (31.0-37.0) g/dL RDW 17.2 H (11.5-15.5) % Plt Count 160 (150-450) k/uL MPV 7.2 Neutrophils % 91 % Lymphocytes % 3 % Monocytes % 3 % Eosinophils % 2 % Basophils % 0 % Neutrophils # 8.1 H (1.3-7.7) k/uL Lymphocytes # 0.3 L (1.0-4.8) k/uL Monocytes # 0.3 (0-1.0) k/uL Eosinophils # 0.2 (0-0.7) k/uL Basophils # 0.0 (0-0.2) k/uL Anisocytosis Slight Macrocytosis Slight PT (9.0-12.0) sec INR (<1.2) APTT (22.0-30.0) sec Sodium (137-145) mmol/L Potassium (3.5-5.1) mmol/L Chloride (98-107) mmol/L Carbon Dioxide (22-30) mmol/L Anion Gap mmol/L BUN (7-17) mg/dL Creatinine (0.52-1.04) mg/dL Est GFR (CKD-EPI)AfAm (>60 ml/min/1.73 sqM) Est GFR (CKD-EPI)NonAf (>60 ml/min/1.73 sqM) Glucose (74-99) mg/dL Plasma Lactic Acid Dino (0.7-2.0) mmol/L Calcium (8.4-10.2) mg/dL Total Bilirubin (0.2-1.3) mg/dL AST (14-36) U/L ALT (4-34) U/L Alkaline Phosphatase (38-126) U/L Creatine Kinase (30-135) U/L Troponin I (0.000-0.034) ng/mL Total Protein (6.3-8.2) g/dL Albumin (3.5-5.0) g/dL Lipase (23-300) U/L Urine Color Colorless Urine Appearance Cloudy H (Clear) Urine pH 5.5 (5.0-8.0) Ur Specific [place] 1.007 (1.001-1.035) Urine Protein Negative (Negative) Urine Glucose (UA) Negative (Negative) Urine Ketones Negative (Negative) Urine Blood Moderate H (Negative) Urine Nitrite Positive H (Negative) Urine Bilirubin Negative (Negative) Urine Urobilinogen <2.0 (<2.0) mg/dL Ur Leukocyte Esterase Large H (Negative) Urine RBC 77 H (0-5) /hpf Urine WBC 98 H (0-5) /hpf Urine WBC Clumps Few H (None) /hpf Ur Squamous Epith Cells <1 (0-4) /hpf Urine Mucus Rare H (None) /hpf Urine Yeast (Budding) Rare H (None) /hpf Stool Occult Blood Positive H (Negative) 09/04/20 09/04/20 09/04/20 Range/Units 12:50 12:50 12:50 WBC (3.8-10.6) k/uL RBC (3.80-5.40) m/uL Hgb (11.4-16.0) gm/dL Hct (34.0-46.0) % MCV (80.0-100.0) fL MCH (25.0-35.0) pg MCHC (31.0-37.0) g/dL RDW (11.5-15.5) % Plt Count (150-450) k/uL MPV Neutrophils % % Lymphocytes % % Monocytes % % Eosinophils % % Basophils % % Neutrophils # (1.3-7.7) k/uL Lymphocytes # (1.0-4.8) k/uL Monocytes # (0-1.0) k/uL Eosinophils # (0-0.7) k/uL Basophils # (0-0.2) k/uL Anisocytosis Macrocytosis PT (9.0-12.0) sec INR (<1.2) APTT (22.0-30.0) sec Sodium 136 L (137-145) mmol/L Potassium 4.3 (3.5-5.1) mmol/L Chloride 102 (98-107) mmol/L Carbon Dioxide 33 H (22-30) mmol/L Anion Gap 1 mmol/L BUN 23 H (7-17) mg/dL Creatinine 0.71 (0.52-1.04) mg/dL Est GFR (CKD-EPI)AfAm >90 (>60 ml/min/1.73 sqM) Est GFR (CKD-EPI)NonAf 89 (>60 ml/min/1.73 sqM) Glucose 134 H (74-99) mg/dL Plasma Lactic Acid Dino 1.3 (0.7-2.0) mmol/L Calcium 8.5 (8.4-10.2) mg/dL Total Bilirubin 0.8 (0.2-1.3) mg/dL AST 28 (14-36) U/L ALT 93 H (4-34) U/L Alkaline Phosphatase 104 (38-126) U/L Creatine Kinase 41 (30-135) U/L Troponin I <0.012 (0.000-0.034) ng/mL Total Protein 5.6 L (6.3-8.2) g/dL Albumin 3.1 L (3.5-5.0) g/dL Lipase 39 (23-300) U/L Urine Color Urine Appearance (Clear) Urine pH (5.0-8.0) Ur Specific [place] (1.001-1.035) Urine Protein (Negative) Urine Glucose (UA) (Negative) Urine Ketones (Negative) Urine Blood (Negative) Urine Nitrite (Negative) Urine Bilirubin (Negative) Urine Urobilinogen (<2.0) mg/dL Ur Leukocyte Esterase (Negative) Urine RBC (0-5) /hpf Urine WBC (0-5) /hpf Urine WBC Clumps (None) /hpf Ur Squamous Epith Cells (0-4) /hpf Urine Mucus (None) /hpf Urine Yeast (Budding) (None) /hpf Stool Occult Blood (Negative) 09/04/20 Range/Units 12:50 WBC (3.8-10.6) k/uL RBC (3.80-5.40) m/uL Hgb (11.4-16.0) gm/dL Hct (34.0-46.0) % MCV (80.0-100.0) fL MCH (25.0-35.0) pg MCHC (31.0-37.0) g/dL RDW (11.5-15.5) % Plt Count (150-450) k/uL MPV Neutrophils % % Lymphocytes % % Monocytes % % Eosinophils % % Basophils % % Neutrophils # (1.3-7.7) k/uL Lymphocytes # (1.0-4.8) k/uL Monocytes # (0-1.0) k/uL Eosinophils # (0-0.7) k/uL Basophils # (0-0.2) k/uL Anisocytosis Macrocytosis PT 19.8 H (9.0-12.0) sec INR 2.0 H (<1.2) APTT 22.2 (22.0-30.0) sec Sodium (137-145) mmol/L Potassium (3.5-5.1) mmol/L Chloride (98-107) mmol/L Carbon Dioxide (22-30) mmol/L Anion Gap mmol/L BUN (7-17) mg/dL Creatinine (0.52-1.04) mg/dL Est GFR (CKD-EPI)AfAm (>60 ml/min/1.73 sqM) Est GFR (CKD-EPI)NonAf (>60 ml/min/1.73 sqM) Glucose (74-99) mg/dL Plasma Lactic Acid Dino (0.7-2.0) mmol/L Calcium (8.4-10.2) mg/dL Total Bilirubin (0.2-1.3) mg/dL AST (14-36) U/L ALT (4-34) U/L Alkaline Phosphatase (38-126) U/L Creatine Kinase (30-135) U/L Troponin I (0.000-0.034) ng/mL Total Protein (6.3-8.2) g/dL Albumin (3.5-5.0) g/dL Lipase (23-300) U/L Urine Color Urine Appearance (Clear) Urine pH (5.0-8.0) Ur Specific [place] (1.001-1.035) Urine Protein (Negative) Urine Glucose (UA) (Negative) Urine Ketones (Negative) Urine Blood (Negative) Urine Nitrite (Negative) Urine Bilirubin (Negative) Urine Urobilinogen (<2.0) mg/dL Ur Leukocyte Esterase (Negative) Urine RBC (0-5) /hpf Urine WBC (0-5) /hpf Urine WBC Clumps (None) /hpf Ur Squamous Epith Cells (0-4) /hpf Urine Mucus (None) /hpf Urine Yeast (Budding) (None) /hpf Stool Occult Blood (Negative) - EKG Data EKG Comments: EKG demonstrates sinus tachycardia with a ventricular rate of 118. CA interval 140. QRS 74. QTC 442. No acute ST segment elevations or depressions Disposition Clinical Impression: Pneumonia due to COVID-19 virus, Abdominal pain, Constipation, Stercoral ulcer of large intestine, Positive fecal occult blood test Disposition: ADMITTED IP TO THIS HOSP Condition: Stable Is patient prescribed a controlled substance at d/c from ED?: No Referrals: Valentín Ariza MD [Primary Care Provider] - 1-2 days Decision to Admit Reason: Admit from EC Decision Date: 09/04/20 Decision Time: 14:34
[2020-09-04 13:03] LABS: Anisocytosis Slight; Basophils % (A) 0 %; Eosinophils # (A) 0.2 k/uL (0-0.7); Eosinophils % (A) 2 %; HCT 27.1 % (34.0-46.0); HGB 9.1 gm/dL (11.4-16.0); Lymphocytes # (A) 0.3 k/uL (1.0-4.8); Lymphocytes % (A) 3 %; MCHC 33.6 g/dL (31.0-37.0); MCV 101.2 fL (80.0-100.0); Macrocytosis Slight; Mean Platelet Volume 7.2; Monocytes # (A) 0.3 k/uL (0-1.0); Monocytes % (A) 3 %; Neutrophils # (A) 8.1 k/uL (1.3-7.7); Neutrophils % (A) 91 %; Platelet Count 160 k/uL (150-450); RBC 2.68 m/uL (3.80-5.40); RDW 17.2 % (11.5-15.5); WBC 8.8 k/uL (3.8-10.6)
[2020-09-04 13:14] LABS: ALT 93 U/L (4-34); AST 28 U/L (14-36); African American GFR (CKD) >90 (>60 ml/min/1.73 sqM); Albumin 3.1 g/dL (3.5-5.0); Alkaline Phosphatase 104 U/L (38-126); Anion Gap 1 mmol/L; Blood Urea Nitrogen 23 mg/dL (7-17); Calcium 8.5 mg/dL (8.4-10.2); Carbon Dioxide 33 mmol/L (22-30); Chloride 102 mmol/L (98-107); Creatine Kinase 41 U/L (30-135); Glucose 134 mg/dL (74-99); Lipase 39 U/L (23-300); Non-African American GFR(CKD) 89 (>60 ml/min/1.73 sqM); Potassium 4.3 mmol/L (3.5-5.1); Sodium 136 mmol/L (137-145); Total Bilirubin 0.8 mg/dL (0.2-1.3); Total Protein 5.6 g/dL (6.3-8.2)
[2020-09-04 13:18] LABS: Partial Thromboplastin Time 22.2 sec (22.0-30.0); Prothrombin Time 19.8 sec (9.0-12.0)
[2020-09-04] MEDS ORDERED: FAMOTIDINE 20 MG/2 ML VIAL IV STA (13:25)
[2020-09-04] MEDS ORDERED: diphenhydrAMINE 50 MG/ML 1 ML VIAL IVP STA (13:25)
[2020-09-04] MEDS ORDERED: methylPREDNISolone SOD SUCCI 125 MG/2 ML VIAL IV STA (13:25)
[2020-09-04 13:49] LABS: Appearance,Urine Cloudy (Clear); Bilirubin,Urine Negative (Negative); Blood,Urine Moderate (Negative); Budding Yeast,Urine Rare /hpf; Color,Urine Colorless; Glucose,Urine (UA) Negative (Negative); Ketones,Urine Negative (Negative); Leukocyte Esterase,Urine Large (Negative); Mucus,Urine Rare /hpf; Nitrite,Urine Positive (Negative); PH, Urine 5.5 (5.0-8.0); Protein,Urine Negative (Negative); RBC,Urine 77 /hpf (0-5); Specific Gravity,Urine 1.007 (1.001-1.035); Squamous Epithelial Cell,Urine <1 /hpf (0-4); Urobilinogen,Urine <2.0 mg/dL (<2.0); WBC,Urine 98 /hpf (0-5)
--- NOTE | 2020-09-04 14:23 | CT ---
EXAMINATION TYPE: CT abdomen pelvis w con DATE OF EXAM: 09/04/2020 COMPARISON: Chest radiograph 09/01/2020 HISTORY: 64-year-old female Generalized pain TECHNIQUE: Contiguous axial scanning of the abdomen and pelvis following administration of 100 ml Iso selma 300 IV contrast. Delayed images through the kidneys and coronal/sagittal reconstructions perform ed. CT DLP: 1824 mGycm Automated exposure control for dose reduction was used. FINDINGS: Heart upper limits of normal in size without pericardial effusion. Extensive bilateral lower lung pat alisson and confluent groundglass infiltrates persist. No pleural effusion. There is mild breathing motion throughout the abdomen. Tiny subcentimeter hypodensity inferior right liver lobe is too small for accurate CT characterization, probable tiny cyst. Similar tiny focus with in the caudate lobe. Portal venous system is patent. No biliary ductal dilatation. Cholecystectomy clips. Adrenal glands, spleen, pancreas within normal limits. Bilateral renal cysts measuring up to 7.3 cm on the left and 2.1 cm on the right. Many of these lesio ns are too small for accurate CT characterization but also likely represent renal cortical cysts. Del ayed excretion of contrast from both kidneys on the delayed kidney images. No hydronephrosis. An IVC filter is present. No dilated small bowel, free fluid, or free air. No mesenteric or retroperitoneal lymphadenopathy. Mild stool burden. Proximal to mid sigmoid diverticulosis without acute diverticulitis. Moses catheter collapse of the bladder. Trace intraluminal bladder air likely from instrumentation. U terus surgically absent. Suspect visualization of a small left ovary. Right ovary not clearly seen. S tool distending the rectum up to 6.3 cm wide. There is mild circumference or wall thickening and mode rate presacral edema. Bones: Bilateral total hip arthroplasties cause extensive metal artifacts limiting assessment of the pelvis. Post surgical change of L2-L5 posterior and interbody fusion. Fixed grade 1 retrolisthesis at L2-L3. IMPRESSION: 1. STOOL DISTENDING THE RECTUM UP TO 6.3 CM WIDE WITH MILD CIRCUMFERENTIAL WALL THICKENING AND MODERA TE PRESACRAL EDEMA. CORRELATE FOR POSSIBLE FECAL IMPACTION AND COLITIS INCLUDING THE POSSIBILITY OF A N EARLY STERCORAL COLITIS. 2. NO CONTRAST SEEN WITHIN THE RENAL COLLECTING SYSTEMS ON THE DELAYED KIDNEY IMAGES. THIS MAY BE DUE TO EARLY TIMING OF THE SCAN. CORRELATE TO EXCLUDE JEANMARIE. 3. BILATERAL RENAL CYSTS MEASURING UP TO 7.3 CM ON THE LEFT AND 2.1 CM ON THE RIGHT. SIGMOID DIVERTIC ULOSIS WITHOUT ACUTE DIVERTICULITIS. 4. EXTENSIVE CHANGES RELATED TO ONGOING COVID PNEUMONIA IN THE VISUALIZED LOWER LUNGS.
[2020-09-04] MEDS ORDERED: NA PHOS,M-B/NA PHOS,DI-BA 133 ML ENEMA RECTAL STA (14:25)
[2020-09-04] MEDS ORDERED: cefTRIAXone IN SWFI 1,000 MG/10 ML SYRINGE IVP STA (14:29)
[2020-09-04] MEDS ORDERED: NALOXONE 0.4 MG/ML 1 ML VIAL IV PRN (14:55)
[2020-09-04] MEDS: SODIUM CHLORIDE 0.9% 1,000 ML IV SCH (15:06)
[2020-09-04] MEDS ORDERED: MAGNESIUM HYDROXIDE 2,400 MG/10 ML CUP PO PRN (15:18)
[2020-09-04] MEDS ORDERED: bisacodyL 10 MG SUPP RECTAL PRN (15:18)
[2020-09-04] MEDS ORDERED: CALCIUM CARBONATE 500 MG CHEWABLE PO PRN (15:18)
[2020-09-04] MEDS ORDERED: LIDOCAINE 2% GEL 30 ML TUBE TOPICAL PRN (15:18)
[2020-09-04] MEDS ORDERED: ALBUTEROL NEBULIZED 2.5 MG/3 ML INHALATION PRN (15:18)
[2020-09-04] MEDS ORDERED: NA PHOS,M-B/NA PHOS,DI-BA 133 ML ENEMA RECTAL PRN (15:18)
[2020-09-04] MEDS ORDERED: WARFARIN 2 MG TAB PO SCH (17:00)
[2020-09-04] MEDS ORDERED: NON FORMULARY DRUG (Glucerna Shake 1 CAN Liquid) PO SCH (17:30)
[2020-09-04] MEDS: ASCORBIC ACID 500 MG TAB PO SCH (17:52)
[2020-09-04] MEDS: ZINC SULFATE 220 MG CAP PO SCH (17:52)
[2020-09-04] MEDS: amLODIPine 5 MG TAB PO SCH (17:52)
[2020-09-04] MEDS: THIAMINE 100 MG TAB PO SCH (17:52)
[2020-09-04] MEDS: CYANOCOBALAMIN 500 MCG TAB PO SCH (17:52)
[2020-09-04] MEDS: AMIODARONE 200 MG TAB PO SCH (17:52)
[2020-09-04] MEDS: DOCUSATE 100 MG CAP PO SCH (17:53)
[2020-09-04] MEDS: CHOLECALCIFEROL 25 MCG (1000 IU) TABLET PO SCH (17:53)
[2020-09-04] MEDS: METOPROLOL TARTRATE 50 MG TAB PO SCH (17:53)
[2020-09-04] MEDS ORDERED: HYDROcodone/APAP 5-325MG 1 EACH TAB PO PRN (20:33)
--- NOTE | 2020-09-04 20:49 | P.HPIM ---
History of Present Illness H&P Date: 09/04/20 Chief Complaint: GI bleed, severe abdominal pain, severe hypoxia, A. fib, DVT and PE 64-year-old female one of Dr. Siu's patient with past medical history of coronary disease, hypertension, history of DVT and pulmonary embolism 2002, history of fibromyalgia and asthma who was hospitalized at [facility] in until 09/03/2020 significant shortness of breath worsening dyspnea and altered mental status. Patient was diagnosed with Covid 19 pneumonitis was in acute respiratory failure was on very high flow O2 after been on BiPAP for long time and earlier patient was in [facility] for subdural hematoma associated with meningioma in the left frontal lobe which patient underwent left frontal craniotomy and was discharged on 08/13/2020 on seizure precaution medication along with pain management. Patient daughter was RN found to have extremely low oxygen saturation brought her to the emergency department [facility] the time and found to be unresponsive with oxygen level been very low was on BiPAP was not able to provide much history at the time patient has been had help with some her history and family decided not to send her to [place] at the time patient ended up staying in the hospital almost total of 3 weeks recovering from Covid 19 pneumonitis and worsening complication consistent with sepsis bilateral pneumonia along with severe hypoxia and mild fluid overload along with acute kidney injury. Patient was seen multiple subspecialists in the hospital including cardiology, pulmonary, infectious disease, physical therapy the patient therapy. Patient ended up going to [facility] on oxygen flow between 4-6 L nasal cannula with pulse ox running in the mid 90 has done well until early this morning when developed to have significant abdominal pain with distention and worsening dyspnea and shortness of breath become quite but hypoxic with pulse ox running in the 80s with distended abdomen did not respond to medication medical management ended up transferring patient to the emergency department [facility] where was seen and evaluated her Hemoccult was positive hemoglobin still running 9.1 g no change from before. Patient pulse ox corrected shortly after arrival with minimum change in her oxygen. INR was 2.0 at the time with her current Hemoccult her urine was very positive as well patient will be started on Rocephin GI prophylaxis H&H every 8-12 hours we'll consult gastro-enterology for possible need for endoscopy. Review of Systems CONSTITUTIONAL: Well-developed mildly overweight with mild respiratory distress. EYES: No icterus sclerae, no conjunctivitis. EARS, NOSE, MOUTH, THROAT, and FACE: No sore throat, lymphadenopathy, carotid bruits or deformity. RESPIRATORY: Decreased breath some bilateral especially the right base positive fine rhonchi with mild crackles in might expect wheezes. CARDIOVASCULAR: Palpitation with PND and orthopnea no typical angina. GASTROINTESTINAL: Slight abdominal discomfort with distention midepigastric pain and discomfort, black stool with nausea and vomiting one time. GENITOURINARY: Negative for Hematuria or UTI, no kidney stones. INTEGUMENT/BREAST: Negative for any muscular injury with mild osteoarthritis.. HEMATOLOGIC/LYMPHATIC: Negative for bleed or purpura. Mild anemia MUSCULOSKELTAL: Negative for Myalgia or arthralgia. Generalized arthralgia and myalgia. NEURLOGICAL: No LOC, Sz or syncope, blurred vision slight weakness in the left side with a craniotomy and slight mental status change. BEHAVIORAL/PSYCH: Negative, mild depression. ENDOCRINE: Negative. Past Medical History Past Medical History: Asthma, Coronary Artery Disease (CAD), Deep Vein Thrombosis (DVT), Fibromyalgia, GERD/Reflux, Hyperlipidemia, Hypertension, Osteoarthritis (OA), Pneumonia, Thyroid Disorder Additional Past Medical History / Comment(s): "osteopenia, renal insufficiency, back pain chronic per patient" History of Any Multi-Drug Resistant Organisms: None Reported Past Surgical History: Appendectomy, Cholecystectomy, Hysterectomy, Joint Replacement Additional Past Surgical History / Comment(s): TOTAL RIGHT AND LEFT HIP, TOTAL RIGHT AND LEFT KNEE, BILATERAL FOOT SURGERY, BILATERAL HAND SURGERY-JOINT REPLACEMENT, [place] [address] filter placement, left wrist tendon repair, posterior lateral decompression and fusion of the lumbar spine Past Anesthesia/Blood Transfusion Reactions: No Reported Reaction Past Psychological History: No Psychological Hx Reported Smoking Status: Current every day smoker Past Alcohol Use History: Occasional Additional Past Alcohol Use History / Comment(s): Patient is a smoker of half a pack per day since she was 13 years of age. She denies any medical marijuana, m arijuana, street drug or alcohol use. She was at home with her . She does not use aid for ambulation. Past Drug Use History: Marijuana Additional Drug Use History / Comment(s): edibles with THC - Past Family History Father Family Medical History: Congestive Heart Failure (CHF) Additional Family Medical History / Comment(s): Father is alive at age 85 currently at the hospice home with history of mesothelioma Mother Family Medical History: Cancer, Deep Vein Thrombosis (DVT) Additional Family Medical History / Comment(s): Mother is alive at age 85 currently at the hospice home with history of dementia and GI cancer. Sister(s) Family Medical History: Cancer Additional Family Medical History / Comment(s): Patient has 3 sisters and 3 brothers. Daughter(s) Additional Family Medical History / Comment(s): Patient is 3 daughters and one has history of arrhythmia. Patient has 2 sons with no major medical problems. Medications and Allergies Home Medications Medication Instructions Recorded Confirmed Type Cholecalciferol [Vitamin D3 (25 1,000 unit PO DAILY@1700 12/28/15 09/04/20 History Mcg = 1000 Iu)] Docusate [Colace] 100 mg PO DAILY@1700 12/28/15 09/04/20 History Famotidine [Pepcid] 20 mg PO DAILY@0600 12/28/15 09/04/20 History Venlafaxine HCl ER [Effexor XR] 150 mg PO DAILY@0800 12/28/15 09/04/20 History amLODIPine BESYLATE [Norvasc] 5 mg PO BID@0800,1700 07/27/17 09/04/20 History Albuterol Inhaler [Ventolin Hfa 1 puff INHALATION RT-Q6H PRN 08/16/20 09/04/20 History Inhaler] Bisacodyl 10 mg PO DAILY@0800 08/16/20 09/04/20 History Fluticasone/Vilanterol [Breo 1 puff INHALATION RT-DAILY@0800 08/16/20 09/04/20 History Ellipta 100-25 Mcg Inhaler] Levothyroxine Sodium [Synthroid] 37.5 mcg PO DAILY@0600 08/16/20 09/04/20 History levETIRAcetam [Keppra] 500 mg PO BID@0800,2100 08/16/20 09/04/20 History Calcium Carbonate [Tums] 1,000 mg PO QID PRN chew 09/03/20 09/04/20 Rx HYDROcodone/APAP 5-325MG [[place] 1 tab PO Q4HR PRN #18 tab 09/03/20 09/04/20 Rx 5-325] Lidocaine 4% Cream [Lmx 4] 1 applic TOPICAL Q4H PRN applic 09/03/20 09/04/20 Rx Magnesium Hydroxide [Milk of 2,400 mg PO DAILY PRN ml 09/03/20 09/04/20 Rx Magnesia Concentrate] Amiodarone [Cordarone] 200 mg PO BID@0800,1700 09/04/20 09/04/20 History Ascorbic Acid [Vitamin C] 1,000 mg PO DAILY@169909/04/20 09/04/20 History Cyanocobalamin [Vitamin B-12] 1,000 mcg PO DAILY@169909/04/20 09/04/20 History Glucerna Shake 1 can PO AC-TID 09/04/20 09/04/20 History INSULIN ASPART (NovoLOG) [NovoLOG See Protocol SQ ACHS 09/04/20 09/04/20 History (formulary)] Melatonin 5 mg PO HS@209909/04/20 09/04/20 History Metoprolol Tartrate [Lopressor] 50 mg PO BID@0800,169909/04/20 09/04/20 History Na Phos,M-B/Na Phos,Di-Ba [Fleet 133 ml RECTAL DAILY PRN 09/04/20 09/04/20 History Adult] QUEtiapine [SEROquel] 25 mg PO HS@209909/04/20 09/04/20 History Thiamine [Vitamin B-1] 100 mg PO DAILY@169909/04/20 09/04/20 History Warfarin [Coumadin] 2 mg PO DAILY@169909/04/20 09/04/20 History Zinc Sulfate [Orazinc] 220 mg PO DAILY@169909/04/20 09/04/20 History bisacodyL [Dulcolax] 10 mg RECTAL DAILY PRN 09/04/20 09/04/20 History dexAMETHasone [Dexamethasone] 6 mg PO DAILY@0800 09/04/20 09/04/20 History hydrALAZINE HCL [Apresoline] 50 mg PO BID@0800,2100 09/04/20 09/04/20 History Allergies Allergy/AdvReac Type Severity Reaction Status Date / Time erythromycin lactobionate Allergy RASH,VOMITI Verified 09/04/20 11:50 [From Erythrocin] NG influenza virus vaccine, Allergy LOW WHITE Verified 09/04/20 11:50 specific COUNT,INFLAMED [influenza virus LIVER vacc,specific] morphine Allergy Nausea & Verified 09/04/20 11:50 Vomiting shellfish derived [Shellfish] Allergy Swelling Verified 09/04/20 11:50 of tongue,rash iodine AdvReac Anaphylaxis Verified 09/04/20 11:50 Physical Exam Vitals: Vital Signs Temp Pulse Resp BP Pulse Ox 09/04/20 16:46 98.3 F 98 18 130/72 98 09/04/20 14:01 109 H 20 128/68 99 09/04/20 11:44 98.2 F 116 H 18 118/65 96 Intake and Output 09/04/20 09/04/20 09/04/20 06:59 14:59 22:59 Intake Total 50 Output Total 1000 Balance -950 Intake: Amount of Fluid Infused ( 50 ml) Output: Urine 1000 Other: Weight 104.326 kg 104.326 kg General Appearance: Alert, cooperative, mild distress Tuesday overweight. Neck HEENT: Supple, no lymphadenopathy, no thyroid enlargement, no carotid bruits. Lungs: Decreased breath sound bilaterally without rhonchi positive crackles in the bases positive mild inspiratory expiratory wheezes specially in the right side. Chest Wall: Decrease expansion with deep inspiration no tenderness and no de formity was found on exam, no costochondral pain or discomfort. Heart: Irregular rate and rhythm, S1, S2 positive S3 positive tachycardia Back: Symmetric, no curvature, ROM normal, no CVA tenderness. Abdomen: Slightly distended with hyper bowel sounds slight discomfort in the epigastric area on medical abdominal area no rebound or rigidity. Extremities: Extremities normal, atraumatic, no cyanosis or edema. Pulses: 2+ and symmetric. Skin: Skin color, texture, tugor normal, no rashes or lesions. Neurologic: Alert oriented with slight confusion cranial nerves II through XII intact, positive generalized weakness worsening left side than the right side. Results CBC & Chem 7: 09/04/20 12:47 09/04/20 12:50 Labs: Abnormal Lab Results - Last 24 Hours (Table) 09/04/20 09/04/20 09/04/20 Range/Units 12:35 12:47 12:50 RBC 2.68 L (3.80-5.40) m/uL Hgb 9.1 L (11.4-16.0) gm/dL Hct 27.1 L (34.0-46.0) % MCV 101.2 H (80.0-100.0) fL RDW 17.2 H (11.5-15.5) % Neutrophils # 8.1 H (1.3-7.7) k/uL Lymphocytes # 0.3 L (1.0-4.8) k/uL PT (9.0-12.0) sec INR (<1.2) Sodium (137-145) mmol/L Carbon Dioxide (22-30) mmol/L BUN (7-17) mg/dL Glucose (74-99) mg/dL ALT (4-34) U/L Total Protein (6.3-8.2) g/dL Albumin (3.5-5.0) g/dL Urine Appearance Cloudy H (Clear) Urine Blood Moderate H (Negative) Urine Nitrite Positive H (Negative) Ur Leukocyte Esterase Large H (Negative) Urine RBC 77 H (0-5) /hpf Urine WBC 98 H (0-5) /hpf Urine WBC Clumps Few H (None) /hpf Urine Mucus Rare H (None) /hpf Urine Yeast (Budding) Rare H (None) /hpf Stool Occult Blood Positive H (Negative) 09/04/20 09/04/20 Range/Units 12:50 12:50 RBC (3.80-5.40) m/uL Hgb (11.4-16.0) gm/dL Hct (34.0-46.0) % MCV (80.0-100.0) fL RDW (11.5-15.5) % Neutrophils # (1.3-7.7) k/uL Lymphocytes # (1.0-4.8) k/uL PT 19.8 H (9.0-12.0) sec INR 2.0 H (<1.2) Sodium 136 L (137-145) mmol/L Carbon Dioxide 33 H (22-30) mmol/L BUN 23 H (7-17) mg/dL Glucose 134 H (74-99) mg/dL ALT 93 H (4-34) U/L Total Protein 5.6 L (6.3-8.2) g/dL Albumin 3.1 L (3.5-5.0) g/dL Urine Appearance (Clear) Urine Blood (Negative) Urine Nitrite (Negative) Ur Leukocyte Esterase (Negative) Urine RBC (0-5) /hpf Urine WBC (0-5) /hpf Urine WBC Clumps (None) /hpf Urine Mucus (None) /hpf Urine Yeast (Budding) (None) /hpf Stool Occult Blood (Negative) Thrombosis Risk Factor Assmnt - DVT/VTE Prophylaxis DVT/VTE Prophylaxis: Mechanical Prophylaxis ordered - Choose All That Apply Any of the Below Risk Factors Present?: Yes Each Factor Represents 1 point: Obesity (BMI >25) Other Risk Factors: Yes Each Risk Factor Represents 2 Points: Age 61-74 years Each Risk Factor Represents 3 Points: History of DVT/PE Thrombosis Risk Factor Assessment Total Risk Factor Score: 6 Thrombosis Risk Factor Assessment Level: High Risk Assessment and Plan Assessment: 1 severe abdominal pain, with acute gastrointestinal bleed most likely from bleeding ulcer and severe gastritis could be the effect of the steroid and anticoagulation, patient be off warfarin for now no fresh frozen plasma require this point and no need for vitamin K we'll consult gastrology nephrology start patient on pantoprazole IV patient will be going for endoscopy. 2 acute blood loss anemia: With mild drop hemoglobin so far we keep watching H&H for the next 2 days every 8-12 hours if the drop in hemoglobin below 8 transfusion be done. 3 severe hypoxia: With recent history of Covid 19 pneumonitis along with COPD exacerbation, continue O2 titrate oxygen to keep her pulse ox above 90 percentile and if needed BiPAP through the night will be helpful. 4 subacute Covid 19 pneumonitis was still have significant scar tissue patient has completed her treatment with antiviral medication still on tapered dose of steroid at this point along with O2 and supportive care. 5 acute toxic metabolic encephalopathy due to Covid 19 pneumonitis along with severe hyponatremia has recover some. 6 urinary tract infection and sepsis: Patient will be on Rocephin 1 g daily awaiting for blood and urine culture. 7 history of pulmonary embolism and deep venous thrombosis: Patient will be off anticoagulation to the bleed stopped. 8 history of coronary disease: Continue secondary prevention and medication watch for any chest pain or angina. 9 recent history of craniotomy secondary to hemorrhagic stroke with acute left subdural hemorrhage with benign tumor status post left frontal craniotomy. 10 history of hypertension: Remain on hydralazine 50 mg twice a day and metoprolol 50 mg twice a day. 11 A. fib with RVR: Pulse rates under control and patient was on anticoagulation will be held for now still on amiodarone 200 mg twice a day and metoprolol. 12 seizure prophylaxis: Has been on Keppra 5 mg twice a day. 13 severe depression and anxiety and panic attack has been on Effexor XR 150 g daily along with Seroquel 25 mg daily at bedtime. 14 type 2 diabetes: Continue Accu-Chek with sliding scales coverage still on insulin at this point. 15 GI prophylaxis: Patient was started on Pepcid Will add pantoprazole 40 mg twice a day. 16 DVT prophylaxis: Patient will have knee-high VANIA hose and Venodyne boots and eventually back on anticoagulation. CODE STATUS: Full code. Admit patient to the inpatient service for more than 2 night stay.
[2020-09-04 22:02] LABS: Glucose,Whole Blood 162 mg/dL (75-99)
[2020-09-04] MEDS: INSULIN ASPART (NovoLOG) 100 UNIT/ML VIAL SQ SCH (22:07)
[2020-09-04] MEDS: levETIRAcetam 500 MG TAB PO SCH (22:08)
[2020-09-04] MEDS: hydrALAZINE HCL 50 MG TAB PO SCH (22:08)
[2020-09-04] MEDS: PANTOPRAZOLE 40 MG/10 ML VIAL IVP SCH (22:09)
[2020-09-04] MEDS: MELATONIN 5 MG TABLET PO SCH (22:09)
[2020-09-04] MEDS: QUEtiapine 25 MG TAB PO SCH (22:15)
[2020-09-05 01:31] LABS: Anisocytosis Slight; HCT 25.7 % (34.0-46.0); HGB 8.5 gm/dL (11.4-16.0); MCHC 33.2 g/dL (31.0-37.0); MCV 102.3 fL (80.0-100.0); Macrocytosis Moderate; Mean Platelet Volume 7.5; Platelet Count 151 k/uL (150-450); RBC 2.51 m/uL (3.80-5.40); RDW 17.2 % (11.5-15.5); WBC 8.2 k/uL (3.8-10.6)
[2020-09-05] MEDS: LEVOTHYROXINE 75 MCG TAB PO SCH (05:25)
[2020-09-05] MEDS ORDERED: FAMOTIDINE 20 MG TAB PO SCH (06:00)
[2020-09-05 07:11] LABS: Anisocytosis Slight; Basophils % (A) 0 %; Eosinophils # (A) 0.1 k/uL (0-0.7); Eosinophils % (A) 1 %; HCT 25.4 % (34.0-46.0); HGB 8.3 gm/dL (11.4-16.0); Hypochromasia Slight; Lymphocytes # (A) 0.5 k/uL (1.0-4.8); Lymphocytes % (A) 7 %; MCH 34.3 pg (25.0-35.0); MCHC 32.6 g/dL (31.0-37.0); Macrocytosis Moderate; Mean Platelet Volume 7.2; Monocytes # (A) 0.5 k/uL (0-1.0); Monocytes % (A) 6 %; Neutrophils # (A) 6.3 k/uL (1.3-7.7); Neutrophils % (A) 85 %; Platelet Count 145 k/uL (150-450); RBC 2.42 m/uL (3.80-5.40); RDW 17.2 % (11.5-15.5); WBC 7.4 k/uL (3.8-10.6)
[2020-09-05 08:18] LABS: Glucose,Whole Blood 97 mg/dL (75-99)
[2020-09-05] MEDS: SYMBICORT 80-4.5 MCG INHALER INHALATION SCH ×2 (08:30→19:41)
[2020-09-05] MEDS: INSULIN ASPART (NovoLOG) 100 UNIT/ML VIAL SQ SCH ×4 (08:56→20:29)
--- NOTE | 2020-09-05 10:22 | P.PN ---
Subjective Progress Note Date: 09/05/20 HISTORY OF PRESENT ILLNESS 64-year-old female one of Dr. Siu's patient with past medical history of coronary disease, hypertension, history of DVT and pulmonary embolism 2002, history of fibromyalgia and asthma who was hospitalized at [facility] in until 09/03/2020 significant shortness of breath worsening dyspnea and altered mental status. Patient was diagnosed with Covid 19 pneumonitis was in acute respiratory failure was on very high flow O2 after been on BiPAP for long time and earlier patient was in [facility] for subdural hematoma associated with meningioma in the left frontal lobe which patient underwent left frontal craniotomy and was discharged on 08/13/2020 on seizure precaution medication along with pain management. Patient daughter was RN found to have extremely low oxygen saturation brought her to the emergency department [facility] the time and found to be unresponsive with oxygen level been very low was on BiPAP was not able to provide much history at the time patient has been had help with some her history and family decided not to send her to [place] at the time patient ended up staying in the hospital almost total of 3 weeks recovering from Covid 19 pneumonitis and worsening complication consistent with sepsis bilateral pneumonia along with severe hypoxia and mild fluid overload along with acute kidney injury. Patient was seen multiple subspecialists in the hospital including cardiology, pulmonary, infectious disease, physical therapy the patient therapy. Patient ended up going to [facility] on oxygen flow between 4-6 L nasal cannula with pulse ox running in the mid 90 has done well until early this morning when developed to have significant abdominal pain with distention and worsening dyspnea and shortness of breath become quite but hypoxic with pulse ox running in the 80s with distended abdomen did not respond to medication medical management ended up transferring patient to the emergency department [facility] where was seen and evaluated her Hemoccult was positive hemoglobin still running 9.1 g no change from before. Patient pulse ox corrected shortly after arrival with minimum change in her oxygen. INR was 2.0 at the time with her current Hemoccult her urine was very positive as well patient will be started on Rocephin GI prophylaxis H&H every 8-12 hours we'll consult gastro-enterology for possible need for endoscopy. 09/05: Patient is afebrile, heart rate 86, blood pressure 99/66, pulse ox 96% on 5 L high flow nasal cannula. Repeat blood work reveals WBC 7.4, hemoglobin 8.3, platelet count 145. Urine culture is in progress. Patient has been continued on ceftriaxone. Consult in place with GI. Patient states that she is feeling better today. Her breathing is better. Breathing status appears stable. She denies having abdominal pain. She did not have any bowel movements overnight. No abdominal tenderness. REVIEW OF SYSTEMS CONSTITUTIONAL: Well-developed mildly overweight with mild respiratory distress. EYES: No icterus sclerae, no conjunctivitis. EARS, NOSE, MOUTH, THROAT, and FACE: No sore throat, lymphadenopathy, carotid bruits or deformity. RESPIRATORY: Decreased breath some bilateral especially the right base positive fine rhonchi with mild crackles in might expect wheezes. CARDIOVASCULAR: Palpitation with PND and orthopnea no typical angina. GASTROINTESTINAL: No abdominal pain. No nausea, no vomiting, reported black stool at [facility]. GENITOURINARY: Negative for Hematuria or UTI, no kidney stones. INTEGUMENT/BREAST: Negative for any muscular injury with mild osteoarthritis.. HEMATOLOGIC/LYMPHATIC: Negative for bleed or purpura. Mild anemia MUSCULOSKELTAL: Negative for Myalgia or arthralgia. Generalized arthralgia and myalgia. NEURLOGICAL: No LOC, Sz or syncope, blurred vision slight weakness in the left side with a craniotomy and slight mental status change. BEHAVIORAL/PSYCH: Negative, mild depression. ENDOCRINE: Negative. PHYSICAL EXAMINATION General Appearance: Alert, cooperative, no acute distress.. Neck HEENT: Supple, no lymphadenopathy, no thyroid enlargement, no carotid bruits. Lungs: Decreased breath sound bilaterally without rhonchi positive crackles in the bases positive mild inspiratory expiratory wheezes specially in the right side. Chest Wall: Decrease expansion with deep inspiration no tenderness and no deformity was found on exam, no costochondral pain or discomfort. Heart: Irregular rate and rhythm, S1, S2 positive S3 positive tachycardia Back: Symmetric, no curvature, ROM normal, no CVA tenderness. Abdomen: No abdominal distention, no abdominal tenderness. Moses catheter in place. Extremities: Extremities normal, atraumatic, no cyanosis or edema. Pulses: 2+ and symmetric. Skin: Skin color, texture, tugor normal, no rashes or lesions. Neurologic: Alert oriented with slight confusion cranial nerves II through XII intact, positive generalized weakness worsening left side than the right side. ASSESSMENT AND PLAN 1 severe abdominal pain, with acute gastrointestinal bleed most likely from bleeding ulcer and severe gastritis could be the effect of the steroid and anticoagulation, patient be off warfarin for now no fresh frozen plasma require this point and no need for vitamin K, consult gastroenterology, continue Protonix IV push 40 mg twice daily. 2 acute blood loss anemia. Monitor CBC. 3 severe hypoxia: With recent history of Covid 19 pneumonitis along with COPD exacerbation, continue O2 titrate oxygen to keep her pulse ox above 90 percentile and if needed BiPAP through the night will be helpful. 4 subacute Covid 19 pneumonitis was still have significant scar tissue patient has completed her treatment with antiviral medication still on tapered dose of steroid at this point along with O2 and supportive care. 5 acute toxic metabolic encephalopathy due to Covid 19 pneumonitis along with severe hyponatremia has recover some. 6 urinary tract infection and sepsis: Patient will be on Rocephin 1 g daily awaiting for blood and urine culture. 7 history of pulmonary embolism and deep venous thrombosis: Patient will be off anticoagulation to the bleed stopped. 8 history of coronary disease: Continue secondary prevention and medication watch for any chest pain or angina. 9 recent history of craniotomy secondary to hemorrhagic stroke with acute left subdural hemorrhage with benign tumor status post left frontal craniotomy. 10 history of hypertension: Remain on hydralazine 50 mg twice a day and metoprolol 50 mg twice a day. 11 A. fib with RVR, paroxysmal atrial fibrillation: Pulse rates under control and patient was on anticoagulation will be held for now still on amiodarone 200 mg twice a day and metoprolol. 12 seizure prophylaxis: Has been on Keppra 5 mg twice a day. 13 severe depression and anxiety and panic attack has been on Effexor XR 150 g daily along with Seroquel 25 mg daily at bedtime. 14 type 2 diabetes: Continue Accu-Chek with sliding scales coverage still on insulin at this point. 15 GI prophylaxis: Patient was started on Pepcid Will add pantoprazole 40 mg twice a day. 16 DVT prophylaxis: Patient will have knee-high VANIA hose and Venodyne boots and eventually back on anticoagulation. 17 stage II pressure ulcer coccyx, present on admission. Continue local wound care. 18 thrombocytopenia. Continue to monitor closely. CODE STATUS: Full code. DISCHARGE PLAN Return to [facility] Impression and plan of care have been directed as dictated by the signing physician. Karyn Tamayo nurse practitioner acting as scribe for signing physician. Objective - Vital Signs Vital signs: Vital Signs Temp 98.2 F 09/05/20 07:12 Pulse 86 09/05/20 07:12 Resp 16 09/05/20 07:12 BP 99/66 09/05/20 07:12 Pulse Ox 96 09/05/20 07:12 Intake & Output 09/04/20 09/05/20 09/05/20 18:59 06:59 18:59 Intake Total 50 Output Total 1000 375 Balance -950 -375 Weight 104.326 kg 104.326 kg Intake: Amount of Fluid Infused ( 50 ml) Output: Urine 1000 375 Other: Voiding Method Indwelling Catheter Indwelling Catheter - Labs CBC & Chem 7: 09/05/20 06:07 09/04/20 12:50 Labs: Abnormal Lab Results - Last 24 Hours (Table) 09/04/20 09/04/20 09/04/20 Range/Units 12:35 12:47 12:50 RBC 2.68 L (3.80-5.40) m/uL Hgb 9.1 L (11.4-16.0) gm/dL Hct 27.1 L (34.0-46.0) % MCV 101.2 H (80.0-100.0) fL RDW 17.2 H (11.5-15.5) % Plt Count (150-450) k/uL Neutrophils # 8.1 H (1.3-7.7) k/uL Lymphocytes # 0.3 L (1.0-4.8) k/uL PT (9.0-12.0) sec INR (<1.2) Sodium (137-145) mmol/L Carbon Dioxide (22-30) mmol/L BUN (7-17) mg/dL Glucose (74-99) mg/dL POC Glucose (mg/dL) (75-99) mg/dL ALT (4-34) U/L Total Protein (6.3-8.2) g/dL Albumin (3.5-5.0) g/dL Urine Appearance Cloudy H (Clear) Urine Blood Moderate H (Negative) Urine Nitrite Positive H (Negative) Ur Leukocyte Esterase Large H (Negative) Urine RBC 77 H (0-5) /hpf Urine WBC 98 H (0-5) /hpf Urine WBC Clumps Few H (None) /hpf Urine Mucus Rare H (None) /hpf Urine Yeast (Budding) Rare H (None) /hpf Stool Occult Blood Positive H (Negative) 09/04/20 09/04/20 09/04/20 Range/Units 12:50 12:50 22:00 RBC (3.80-5.40) m/uL Hgb (11.4-16.0) gm/dL Hct (34.0-46.0) % MCV (80.0-100.0) fL RDW (11.5-15.5) % Plt Count (150-450) k/uL Neutrophils # (1.3-7.7) k/uL Lymphocytes # (1.0-4.8) k/uL PT 19.8 H (9.0-12.0) sec INR 2.0 H (<1.2) Sodium 136 L (137-145) mmol/L Carbon Dioxide 33 H (22-30) mmol/L BUN 23 H (7-17) mg/dL Glucose 134 H (74-99) mg/dL POC Glucose (mg/dL) 162 H (75-99) mg/dL ALT 93 H (4-34) U/L Total Protein 5.6 L (6.3-8.2) g/dL Albumin 3.1 L (3.5-5.0) g/dL Urine Appearance (Clear) Urine Blood (Negative) Urine Nitrite (Negative) Ur Leukocyte Esterase (Negative) Urine RBC (0-5) /hpf Urine WBC (0-5) /hpf Urine WBC Clumps (None) /hpf Urine Mucus (None) /hpf Urine Yeast (Budding) (None) /hpf Stool Occult Blood (Negative) 09/05/20 09/05/20 Range/Units 01:17 06:07 RBC 2.51 L 2.42 L (3.80-5.40) m/uL Hgb 8.5 L 8.3 L (11.4-16.0) gm/dL Hct 25.7 L 25.4 L (34.0-46.0) % MCV 102.3 H 105.0 H (80.0-100.0) fL RDW 17.2 H 17.2 H (11.5-15.5) % Plt Count 145 L (150-450) k/uL Neutrophils # (1.3-7.7) k/uL Lymphocytes # 0.5 L (1.0-4.8) k/uL PT (9.0-12.0) sec INR (<1.2) Sodium (137-145) mmol/L Carbon Dioxide (22-30) mmol/L BUN (7-17) mg/dL Glucose (74-99) mg/dL POC Glucose (mg/dL) (75-99) mg/dL ALT (4-34) U/L Total Protein (6.3-8.2) g/dL Albumin (3.5-5.0) g/dL Urine Appearance (Clear) Urine Blood (Negative) Urine Nitrite (Negative) Ur Leukocyte Esterase (Negative) Urine RBC (0-5) /hpf Urine WBC (0-5) /hpf Urine WBC Clumps (None) /hpf Urine Mucus (None) /hpf Urine Yeast (Budding) (None) /hpf Stool Occult Blood (Negative) Microbiology - Last 24 Hours (Table) 09/04/20 12:50 Urine Culture - Preliminary Urine,Voided
[2020-09-05] MEDS: hydrALAZINE HCL 50 MG TAB PO SCH ×2 (10:41→20:21)
[2020-09-05] MEDS: dexAMETHasone 2 MG TAB PO SCH (10:41)
[2020-09-05] MEDS: levETIRAcetam 500 MG TAB PO SCH ×2 (10:41→20:37)
[2020-09-05] MEDS: bisacodyL 5 MG TABLET.DR PO SCH (10:42)
[2020-09-05] MEDS: AMIODARONE 200 MG TAB PO SCH ×2 (10:42→17:17)
[2020-09-05] MEDS: METOPROLOL TARTRATE 50 MG TAB PO SCH ×2 (10:42→17:17)
[2020-09-05] MEDS: VENLAFAXINE HCL ER 150 MG CAP PO SCH (10:46)
[2020-09-05] MEDS: PANTOPRAZOLE 40 MG/10 ML VIAL IVP SCH ×2 (10:47→20:22)
[2020-09-05] MEDS: SODIUM CHLORIDE 0.9% 1,000 ML IV SCH (10:47)
[2020-09-05] MEDS: amLODIPine 5 MG TAB PO SCH ×2 (10:56→17:17)
[2020-09-05 11:41] LABS: African American GFR (CKD) 110.1 (60.0-200.0); Albumin 3.5 g/dL (3.80-4.90); Albumin/Globulin Ratio 2.5 (1.60-3.17); BUN/Creat Ratio 36.67 Ratio (12.00-20.00); Calcium 8.4 mg/dL (8.7-10.3); Globulin 1.4 g/dL (1.6-3.3); Total Bilirubin 0.3 mg/dL (0.3-1.2); Total Protein 4.9 g/dL (6.2-8.2)
--- NOTE | 2020-09-05 13:01 | CDI ---
Documentation Clarification Form Date: 09/05/2020 From: Yael Ahn RN, CCDS Admit date: 09/05/2020 Patient Name: Michelle Sutherland (F 64 Yrs) Visit Number: [id number] Discharge Date: Dr. Valentín Airza UTI was documented in the ED clinical impression and the H/P on 09/04/20. It is documented that patient has a Moses in place. Please render your opinion on cause and effect relationship if any. History/Risk Factors: Hypertension, Hemorrhagic stroke, DVT/PE Clinical Indicators: 64-year-old female present to ED on 09/04 with complaints of severe abdominal pain, GI bleed. Recent admit 08/16/20-09/03/20. She was noted to have Moses present in place in ED on 09/04 with urine showing Moderate blood, positive nitrites al large leukocyte esterase, urine wbc 98. 09/04 Vital Signs: 1189/65 116 18 98.2 96 % 5/L NC 09/04WBC: 8.8 09/04 Urine Culture: Pending Treatment Rocepnin 1 GM IVPB Q 24 H Please document the condition that these clinical indicators signify, whether Present on Admission, and cause if known: xx UTI with Sepsis due to Moses catheter, POA Other, please specify Unable to determine (Last Revision: May 2017) MTDD
--- NOTE | 2020-09-05 13:27 | CDI ---
Documentation Clarification Form Date: 09/05/2020 From: Yael Ahn RN, CCDS Admit date: 09/05/2020 Patient Name: Michelle Sutherland (F 64 Yrs) Visit Number: [id number] Discharge Date: Dr. Valentín Ariza The patient presented from [facility] where facility reports that her saturation have been anywhere from 82-89 % Assessment has documented severe hypoxia. Please further specify severe hypoxia and condition you maybe treating. History/Risk Factors: Asthma, Atrial Fibrillation, DVT, PE, COVID-19 Pneumonitis, Respiratory failure , Tobacco use: current everyday user Home oxygen: [facility] ( on 4-5 L NC) Clinical Indicators: 64-year-old female sent to ED on 09/04 when she developed significant abdominal pain with distention and worsening dyspnea and shortness of breath became quite hypoxic with pulse ox running in the 80s. H/P documents mild respiratory distress. 09/04 Vital signs: 118/65 116 18 98.2 96 % 5/L NC 09/04 Lung/Breathing assessment: Decreased breath sounds bilaterally without rhonchi positive crackles in the bases, positive mild inspiratory expiratory wheezes specially on the right side. Chest wall: Decrease expansion with deep inspiration no tenderness and no deformity was found on exam. Treatment: Breathing tx: Ventolin Nebulized 2.5 mg inhalation Q6 hrs prn Symbicort 80-4.5 Mcg Inhaler 2 puff bid Hexadrol 6 mg po daily Continuous Pulse ox (Titrate) O2 5/L High Flow (Titrate) In your professional opinion, can you please clarify if these findings signify one of the following conditions? xx Acute on Chronic hypoxic Respiratory Failure Chronic hypoxic Respiratory Failure Other Diagnosis, please specify Unable to determine (Last Query Form Revision: April 2019) MTDD
[2020-09-05 14:31] LABS: Glucose,Whole Blood 233 mg/dL (75-99)
[2020-09-05] MEDS: HYDROmorphone 1 MG/ML 1 ML SYRINGE IVP PRN ×2 (14:49→20:22)
--- NOTE | 2020-09-05 14:52 | CONS ---
CONSULTATION DATE OF DICTATION: 09/05/2020 REASON FOR CONSULTATION: Lower abdominal pain and rectal bleeding. HISTORY OF PRESENT ILLNESS: The patient is a 64-year-old pleasant white female who was transferred from [place] with acute onset of severe lower abdominal pain followed by rectal bleeding that happened yesterday. The patient had a prolonged hospitalization in August of this year at [facility] with COVID-19 pneumonia and subsequently she was transferred to [facility] for rehab therapy. While in the [facility], she has been requiring 4-6 L of nasal cannula and the patient feels that she has not recovered completely. However, yesterday morning she started having severe lower abdominal pain with some worsening shortness of breath and 2 episodes of bright red blood per rectum. She became concerned, came into the emergency room and subsequently admitted to the hospital for possible GI bleed. She has history of DVT in the past and has been on Coumadin and her initial INR was 2 g/dL. The patient this morning states that the abdominal pain has improved. She did not have any further episodes of rectal bleeding. No melena. She denies any upper abdominal symptoms. She reports no nausea, vomiting. Her Coumadin currently on hold. She was started on Protonix 40 mg twice daily. She recalls having peptic ulcer disease several years ago and her last colonoscopy was about 10 years ago. PAST MEDICAL HISTORY: Significant for coronary artery disease, history of DVT with PE in the past and has been on long-term anticoagulation with Coumadin, history of fibromyalgia, hypertension, hypothyroidism, recent COVID-19 pneumonia and gastroesophageal reflux disease. PAST SURGICAL HISTORY: Appendectomy, cholecystectomy, hysterectomy, total right and left hip replacement, bilateral hand surgeries, Delmar filter placement. SOCIAL HISTORY: No smoking. No alcohol use. FAMILY HISTORY: Mother had DVT and dementia. Sister had some kind of cancer. MEDICATIONS: Medications at home include vitamin D3, docusate, Pepcid, Effexor, Norvasc, Ventolin, Bisacodyl, Breo Ellipta, Synthroid, Keppra, Tums, [place], hydralazine, Coumadin, Dulcolax, dexamethasone, zinc, melatonin, Lopressor, insulin, Glucerna, Cordarone, vitamin C, magnesium oxide. ALLERGIES: ERYTHROMYCIN, FLU VACCINE, SHELLFISH, MORPHINE, IODINE. REVIEW OF SYSTEMS: CARDIOPULMONARY: She denies any chest pain. She does complain of shortness of breath, presently on 4 L of nasal cannula. NEUROLOGY: She had brain surgery in July of 2020. PSYCHIATRIC: Unremarkable. ENT/VISION: Unremarkable. CONSTITUTIONAL: Fatigue, weakness, unable to ambulate. No fever, chills, or night sweats. PHYSICAL EXAMINATION: She appears comfortable. Vital signs are stable. Blood pressure is 139/86, pulse rate 95 per minute and temperature 98.1. HEENT EXAMINATION: Unremarkable. Conjunctivae pink. Sclerae anicteric. Oral cavity, no lesions. CHEST: Clear to auscultation. Decreased breath sounds bilaterally. HEART: Regular rate and rhythm. ABDOMEN: Soft, it was obese. There was tenderness in the right lower quadrant as well as in the left lower quadrant area. Upper abdomen was benign. Bowel sounds are positive. No organomegaly. EXTREMITIES: No pedal edema. NEURO: She is alert and oriented x3. LABS: Labs done at the time of admission to the hospital: WBC is 8.8, hemoglobin 9.1, and platelets are 160. Today hemoglobin is down to 8.3. PT 19.8. INR is 2. BUN is 23, creatinine 0.71. AST, ALT, T-bilirubin and alkaline phosphatase are within normal limits. Lipase is 39. She did have a CT of the abdomen and pelvis done when she came to the emergency room that showed mild circumferential wall thickening in the rectum that appeared dilated measuring 6.3 cm in diameter and possibility of fecal impaction versus colitis was suggested by the radiologist. Extensive changes in the lower lungs consistent with COVID-19 pneumonia. Evidence of sigmoid diverticulosis without any diverticulitis. Bilateral renal cysts also seen. IMPRESSION: 1. This is a patient who presents to the hospital with acute onset of lower abdominal pain followed by rectal bleeding that happened yesterday, had 2 episodes of bright red blood per rectum. She had a CT of the abdomen showed thickening of the rectum and of the left colon and the clinical picture is more consistent with acute colitis possibly ischemic in etiology. Doubt upper GI bleed as the patient does not have any upper GI symptoms or any black tarry stools. She did have a drop in hemoglobin from 9.1-8.3 g/dL. 2. History of deep vein thrombosis and pulmonary embolism on Coumadin for several years. INR is 2.0. 3. Recent COVID-19 pneumonia requiring prolonged hospitalization at [facility] in July and she was transferred to [facility] for rehab. 4. History of diabetes mellitus and hypertension. 5. History of peptic ulcer disease. 6. History of hypothyroidism. 7. History of gastroesophageal reflux disease. RECOMMENDATIONS: 1. Start her on clear liquid diet. 2. Monitor CBC daily. 3. Continue to hold Coumadin. 4. I discussed with the patient regarding upper endoscopy as well as colonoscopy to evaluate her symptoms, but at this time she refuses to have any endoscopic intervention. Hence, I suggested that we continue with conservative approach and if she has any further ongoing bleeding, we will discuss further with the patient. Continue with symptomatic supportive care. Follow CBC daily. Repeat INR in the morning and will follow with you. Thank you for this consultation. ADRI / PAULINE: [id number] /
[2020-09-05 16:58] LABS: Glucose,Whole Blood 178 mg/dL (75-99)
[2020-09-05] MEDS: ASCORBIC ACID 500 MG TAB PO SCH (17:16)
[2020-09-05] MEDS: ZINC SULFATE 220 MG CAP PO SCH (17:16)
[2020-09-05] MEDS: DOCUSATE 100 MG CAP PO SCH (17:17)
[2020-09-05] MEDS: CHOLECALCIFEROL 25 MCG (1000 IU) TABLET PO SCH (17:17)
[2020-09-05] MEDS: CYANOCOBALAMIN 500 MCG TAB PO SCH (17:17)
[2020-09-05] MEDS: THIAMINE 100 MG TAB PO SCH (17:20)
[2020-09-05 20:18] LABS: Glucose,Whole Blood 175 mg/dL (75-99)
[2020-09-05] MEDS: MELATONIN 5 MG TABLET PO SCH (20:22)
[2020-09-05] MEDS: QUEtiapine 25 MG TAB PO SCH (20:37)
[2020-09-06 05:31] LABS: Anisocytosis Slight; Basophils % (A) 0 %; Eosinophils # (A) 0.3 k/uL (0-0.7); Eosinophils % (A) 4 %; HCT 27.7 % (34.0-46.0); HGB 8.5 gm/dL (11.4-16.0); Hypochromasia Moderate; Lymphocytes # (A) 1.2 k/uL (1.0-4.8); Lymphocytes % (A) 15 %; MCH 32.9 pg (25.0-35.0); MCHC 30.6 g/dL (31.0-37.0); Macrocytosis Marked; Mean Platelet Volume 6.9; Monocytes # (A) 0.2 k/uL (0-1.0); Monocytes % (A) 3 %; Neutrophils # (A) 5.7 k/uL (1.3-7.7); Neutrophils % (A) 75 %; Platelet Count 160 k/uL (150-450); RBC 2.58 m/uL (3.80-5.40); RDW 17.8 % (11.5-15.5); WBC 7.6 k/uL (3.8-10.6)
[2020-09-06 05:36] LABS: MCV 107.5 fL (80.0-100.0)
[2020-09-06] MEDS: LEVOTHYROXINE 75 MCG TAB PO SCH (05:53)
[2020-09-06 07:25] LABS: Glucose,Whole Blood 80 mg/dL (75-99)
[2020-09-06] MEDS: SYMBICORT 80-4.5 MCG INHALER INHALATION SCH ×2 (07:48→19:49)
[2020-09-06] MEDS: INSULIN ASPART (NovoLOG) 100 UNIT/ML VIAL SQ SCH ×4 (09:28→21:02)
[2020-09-06] MEDS: PANTOPRAZOLE 40 MG/10 ML VIAL IVP SCH ×2 (09:42→21:03)
[2020-09-06] MEDS: dexAMETHasone 2 MG TAB PO SCH (09:42)
[2020-09-06] MEDS: HYDROmorphone 1 MG/ML 1 ML SYRINGE IVP PRN ×2 (09:42→18:11)
[2020-09-06] MEDS: AMIODARONE 200 MG TAB PO SCH ×2 (09:43→18:06)
[2020-09-06] MEDS: levETIRAcetam 500 MG TAB PO SCH ×2 (09:43→21:02)
[2020-09-06] MEDS: bisacodyL 5 MG TABLET.DR PO SCH (09:43)
[2020-09-06] MEDS: hydrALAZINE HCL 50 MG TAB PO SCH ×2 (09:43→21:02)
[2020-09-06] MEDS: amLODIPine 5 MG TAB PO SCH ×2 (09:43→18:06)
[2020-09-06] MEDS: VENLAFAXINE HCL ER 150 MG CAP PO SCH (09:49)
[2020-09-06] MEDS: METOPROLOL TARTRATE 50 MG TAB PO SCH ×2 (09:49→18:06)
[2020-09-06 10:10] LABS: INR 2.29 (0.90-1.11); Prothrombin Time 23.3 sec (9.9-11.9)
--- NOTE | 2020-09-06 10:42 | P.PN ---
Subjective Progress Note Date: 09/06/20 Principal diagnosis: Abdominal pain, GI bleed, hypoxia, recent Covid 19 pneumonitis, post craniotomy secondary to intercurrent hemorrhage, type 2 diabetes. 64-year-old female one of Dr. Siu's patient with past medical history of coronary disease, hypertension, history of DVT and pulmonary embolism 2002, history of fibromyalgia and asthma who was hospitalized at [facility] in until 09/03/2020 significant shortness of breath worsening dyspnea and altered mental status. Patient was diagnosed with Covid 19 pneumonitis was in acute respiratory failure was on very high flow O2 after been on BiPAP for long time and earlier patient was in [facility] for subdural hematoma associated with meningioma in the left frontal lobe which patient underwent left frontal craniotomy and was discharged on 08/13/2020 on seizure precaution medication along with pain management. Patient daughter was RN found to have extremely low oxygen saturation brought her to the emergency department [facility] the time and found to be unresponsive with oxygen level been very low was on BiPAP was not able to provide much history at the time patient has been had help with some her history and family decided not to send her to [place] at the time patient ended up staying in the hospital almost total of 3 weeks recovering from Covid 19 pneumonitis and worsening complication consistent with sepsis bilateral pneumonia along with severe hypoxia and mild fluid overload along with acute ki dney injury. Patient was seen multiple subspecialists in the hospital including cardiology, pulmonary, infectious disease, physical therapy the patient therapy. Patient ended up going to [facility] on oxygen flow between 4-6 L nasal cannula with pulse ox running in the mid 90 has done well until early this morning when developed to have significant abdominal pain with distention and worsening dyspnea and shortness of breath become quite but hypoxic with pulse ox running in the 80s with distended abdomen did not respond to medication medical management ended up transferring patient to the emergency department [facility] where was seen and evaluated her Hemoccult was positive hemoglobin still running 9.1 g no change from before. Patient pulse ox corrected shortly after arrival with minimum change in her oxygen. INR was 2.0 at the time with her current Hemoccult her urine was very positive as well patient will be started on Rocephin GI prophylaxis H&H every 8-12 hours we'll consult gastro- enterology for possible need for endoscopy. 09/05: Patient is afebrile, heart rate 86, blood pressure 99/66, pulse ox 96% on 5 L high flow nasal cannula. Repeat blood work reveals WBC 7.4, hemoglobin 8.3, platelet count 145. Urine culture is in progress. Patient has been continued on ceftriaxone. Consult in place with GI. Patient states that she is feeling better today. Her breathing is better. Breathing status appears stable. She denies having abdominal pain. She did not have any bowel movements overnight. No abdominal tenderness. 09/06: Patient remain stable no further bleeding hemoglobin today is 8.5, patient was seen Dr. Foster enterology scope is due this time. Her oxygen level has been good on 5 L O2 she still having slight pain well subtle and controlled with Dilaudid, patient had 2 episodes of diarrhea through the night otherwise very stable. Objective - Vital Signs Vital signs: Vital Signs Temp 97.6 F 09/06/20 02:00 Pulse 76 09/06/20 02:00 Resp 18 09/06/20 02:00 BP 145/63 09/06/20 02:00 Pulse Ox 94 L 09/06/20 02:00 Intake & Output 09/05/20 09/05/20 09/06/20 06:59 18:59 06:59 Intake Total 560 Output Total 375 1200 Balance -375 560 -1200 Weight 104.326 kg Intake: Oral 560 Output: Urine 375 1200 Other: Voiding Method Indwelling Catheter Indwelling Catheter Indwelling Catheter - Exam REVIEW OF SYSTEMS CONSTITUTIONAL: Well-developed mildly overweight with mild respiratory distress. EYES: No icterus sclerae, no conjunctivitis. EARS, NOSE, MOUTH, THROAT, and FACE: No sore throat, lymphadenopathy, carotid bruits or deformity. RESPIRATORY: Decreased breath some bilateral especially the right base positive fine rhonchi with mild crackles in might expect wheezes. CARDIOVASCULAR: Palpitation with PND and orthopnea no typical angina. GASTROINTESTINAL: No abdominal pain. No nausea, no vomiting, reported black stool at ECF. GENITOURINARY: Negative for Hematuria or UTI, no kidney stones. INTEGUMENT/BREAST: Negative for any muscular injury with mild osteoarthritis.. HEMATOLOGIC/LYMPHATIC: Negative for bleed or purpura. Mild anemia MUSCULOSKELTAL: Negative for Myalgia or arthralgia. Generalized arthralgia and myalgia. NEURLOGICAL: No LOC, Sz or syncope, blurred vision slight weakness in the left side with a craniotomy and slight mental status change. BEHAVIORAL/PSYCH: Negative, mild depression. ENDOCRINE: Negative. PHYSICAL EXAMINATION General Appearance: Alert, cooperative, no acute distress.. Neck HEENT: Supple, no lymphadenopathy, no thyroid enlargement, no carotid bruits. Lungs: Decreased breath sound bilaterally without rhonchi positive crackles in the bases positive mild inspiratory expiratory wheezes specially in the right side. Chest Wall: Decrease expansion with deep inspiration no tenderness and no deformity was found on exam, no costochondral pain or discomfort. Heart: Irregular rate and rhythm, S1, S2 positive S3 positive tachycardia Back: Symmetric, no curvature, ROM normal, no CVA tenderness. Abdomen: No abdominal distention, no abdominal tenderness. Moses catheter in place. Extremities: Extremities normal, atraumatic, no cyanosis or edema. Pulses: 2+ and symmetric. Skin: Skin color, texture, tugor normal, no rashes or lesions. Neurologic: Alert oriented with slight confusion cranial nerves II through XII intact, positive generalized weakness worsening left side than the right side. - Labs CBC & Chem 7: 09/06/20 05:13 09/05/20 06:07 Labs: Abnormal Lab Results - Last 24 Hours (Table) 09/05/20 09/05/20 09/05/20 Range/Units 06:07 06:07 14:29 RBC 2.42 L (3.80-5.40) m/uL Hgb 8.3 L (11.4-16.0) gm/dL Hct 25.4 L (34.0-46.0) % MCV 105.0 H (80.0-100.0) fL MCHC (31.0-37.0) g/dL RDW 17.2 H (11.5-15.5) % Plt Count 145 L (150-450) k/uL Lymphocytes # 0.5 L (1.0-4.8) k/uL Macrocytosis Chloride 119 H (96-109) mmol/L Anion Gap -1.00 L (4.00-12.00) mmol/L BUN/Creatinine Ratio 36.67 H (12.00-20.00) Ratio POC Glucose (mg/dL) 233 H (75-99) mg/dL Calcium 8.4 L (8.7-10.3) mg/dL ALT 83 H (8-44) U/L Total Protein 4.9 L (6.2-8.2) g/dL Albumin 3.50 L (3.80-4.90) g/dL Globulin 1.4 L (1.6-3.3) g/dL 09/05/20 09/05/20 09/06/20 Range/Units 16:56 20:15 05:13 RBC 2.58 L (3.80-5.40) m/uL Hgb 8.5 L (11.4-16.0) gm/dL Hct 27.7 L (34.0-46.0) % MCV 107.5 H (80.0-100.0) fL MCHC 30.6 L (31.0-37.0) g/dL RDW 17.8 H (11.5-15.5) % Plt Count (150-450) k/uL Lymphocytes # (1.0-4.8) k/uL Macrocytosis Marked A Chloride (96-109) mmol/L Anion Gap (4.00-12.00) mmol/L BUN/Creatinine Ratio (12.00-20.00) Ratio POC Glucose (mg/dL) 178 H 175 H (75-99) mg/dL Calcium (8.7-10.3) mg/dL ALT (8-44) U/L Total Protein (6.2-8.2) g/dL Albumin (3.80-4.90) g/dL Globulin (1.6-3.3) g/dL Microbiology - Last 24 Hours (Table) 09/04/20 12:50 Urine Culture - Preliminary Urine,Voided Group D Enterococcus Assessment and Plan Assessment: 1 severe abdominal pain, with acute gastrointestinal bleed most likely from bleeding ulcer and severe gastritis could be the effect of the steroid and anticoagulation, patient be off warfarin for now no fresh frozen plasma require this point and no need for vitamin K we'll consult gastrology nephrology start patient on pantoprazole IV patient will be going for endoscopy. No need for endoscopy and no further bleed at this point. 2 acute blood loss anemia: With mild drop hemoglobin so far we keep watching H&H for the next 2 days every 8-12 hours if the drop in hemoglobin below 8 transfusion be done. Transfusion is require repeat CBC tomorrow. 3 severe hypoxia: With recent history of Covid 19 pneumonitis along with COPD exacerbation, continue O2 titrate oxygen to keep her pulse ox above 90 percentile and if needed BiPAP through the night will be helpful. 4 subacute Covid 19 pneumonitis was still have significant scar tissue patient has completed her treatment with antiviral medication still on tapered dose of steroid at this point along with O2 and supportive care. 5 acute toxic metabolic encephalopathy due to Covid 19 pneumonitis along with severe hyponatremia has recover some. 6 urinary tract infection and sepsis: Patient will be on Rocephin 1 g daily awaiting for blood and urine culture. 7 history of pulmonary embolism and deep venous thrombosis: Patient is back on warfarin today with try to keep her INR between 2 and 3 still on 2 mg before friend. 8 history of coronary disease: Continue secondary prevention and medication watch for any chest pain or angina. 9 recent history of craniotomy secondary to hemorrhagic stroke with acute left subdural hemorrhage with benign tumor status post left frontal craniotomy. 10 history of hypertension: Remain on hydralazine 50 mg twice a day and metoprolol 50 mg twice a day. 11 A. fib with RVR: Pulse rates under control and patient was on anticoagulation will be held for now still on amiodarone 200 mg twice a day and metoprolol. 12 seizure prophylaxis: Has been on Keppra 5 mg twice a day. 13 severe depression and anxiety and panic attack has been on Effexor XR 150 g daily along with Seroquel 25 mg daily at bedtime. 14 type 2 diabetes: Continue Accu-Chek with sliding scales coverage still on insulin at this point. Discharge planning: Patient be back tomorrow to hopefully on Tuesday.
--- NOTE | 2020-09-06 10:48 | PN ---
PROGRESS NOTE DATE OF SERVICE: 09/06/2020 Patient is a 64-year-old pleasant white female admitted to the hospital with acute onset of lower abdominal pain followed by rectal bleeding that happened [address] scan showed thickening of the rectum with large amount of stool impaction. The symptoms are more consistent with acute ischemic colitis. She is on broad-spectrum antibiotics. She is complaining of severe abdominal pain today. She received Dilaudid last night for abdominal pain, as per the nursing staff. No evidence of obvious bleeding. She had one episode of emesis this morning. No evidence of coffee-ground emesis. PHYSICAL EXAMINATION: She appears somewhat uncomfortable from the pain. VITAL SIGNS: Show a blood pressure of 126/61, pulse rate 95, temperature 97.2. HEENT: Examination unremarkable. Conjunctivae are pink. Sclerae anicteric. Oral cavity no lesions. NECK: No JVD or lymph node enlargement. CHEST: Clear to auscultation. HEART: Regular rate and rhythm. ABDOMEN: Soft, it was nondistended. However, there was tenderness in the left lower quadrant in the suprapubic and the right lower quadrant area. There was no rigidity or rebound noted. EXTREMITIES: No pedal edema. SKIN: No rashes. NEUROLOGIC: Alert and oriented x3. No focal deficits. LABS: WBC 7.6, hemoglobin 8.5, and platelets 160. Rest of the labs are within normal limits. IMPRESSION: 1. Lower abdominal pain with 2 episodes of rectal bleeding that happened 2 days ago. The patient still continues to complain of lower abdominal pain, but no further episodes of bleeding noted. She does have some nausea and vomiting but no coffee- grounds emesis. CT scan showed thickening of the rectum and the left colon consistent with acute colitis possibly ischemic in etiology, but cannot rule out infectious etiology. 2. History of deep venous thrombosis and pulmonary embolism in the past. On Coumadin which is currently on hold. 3. History of recent COVID-19 pneumonia with prolonged hospitalization a month ago. 4. History of coronary artery disease, hypertension and hyperlipidemia. RECOMMENDATIONS: 1. Continue with broad-spectrum antibiotics. 2. Continue with a clear liquid diet. 3. Pain medications as needed. 4. The patient is not interested in any endoscopic intervention at the present time and hence we will continue with symptomatic and supportive care. Follow labs closely and we will follow with you closely. Thank you for this consultation. MMODL / IJN: [id number] /
[2020-09-06 12:23] LABS: Glucose,Whole Blood 105 mg/dL (75-99)
[2020-09-06 17:46] LABS: Glucose,Whole Blood 180 mg/dL (75-99)
[2020-09-06] MEDS ORDERED: WARFARIN 2 MG TAB PO SCH (18:00)
[2020-09-06] MEDS: CYANOCOBALAMIN 500 MCG TAB PO SCH (18:05)
[2020-09-06] MEDS: ASCORBIC ACID 500 MG TAB PO SCH (18:05)
[2020-09-06] MEDS: ZINC SULFATE 220 MG CAP PO SCH (18:06)
[2020-09-06] MEDS: DOCUSATE 100 MG CAP PO SCH (18:06)
[2020-09-06] MEDS: CHOLECALCIFEROL 25 MCG (1000 IU) TABLET PO SCH (18:06)
[2020-09-06] MEDS: THIAMINE 100 MG TAB PO SCH (18:11)
[2020-09-06 19:24] VITALS: RESP 18
[2020-09-06] MEDS: SODIUM CHLORIDE 0.9% 1,000 ML IV SCH (19:27)
[2020-09-06 20:48] LABS: Glucose,Whole Blood 168 mg/dL (75-99)
[2020-09-06] MEDS: MELATONIN 5 MG TABLET PO SCH (21:03)
[2020-09-06] MEDS: QUEtiapine 25 MG TAB PO SCH (21:03)
[2020-09-07] MEDS: HYDROmorphone 1 MG/ML 1 ML SYRINGE IVP PRN ×3 (03:44→17:41)
[2020-09-07] MEDS: SODIUM CHLORIDE 0.9% 1,000 ML IV SCH (04:31)
[2020-09-07 05:45] LABS: Anisocytosis Slight; HCT 24.4 % (34.0-46.0); HGB 7.6 gm/dL (11.4-16.0); Hypochromasia Moderate; MCH 33.7 pg (25.0-35.0); MCHC 31.3 g/dL (31.0-37.0); Macrocytosis Marked; Mean Platelet Volume 7.5; Platelet Count 163 k/uL (150-450); RBC 2.26 m/uL (3.80-5.40); RDW 17.7 % (11.5-15.5)
[2020-09-07 06:08] LABS: MCV 107.9 fL (80.0-100.0)
[2020-09-07] MEDS: LEVOTHYROXINE 75 MCG TAB PO SCH (06:19)
[2020-09-07] MEDS: SYMBICORT 80-4.5 MCG INHALER INHALATION SCH ×2 (07:32→18:57)
[2020-09-07 07:42] LABS: Glucose,Whole Blood 112 mg/dL (75-99)
[2020-09-07 09:02] LABS: African American GFR (CKD) 116.9 (60.0-200.0); Albumin 3.1 g/dL (3.80-4.90); Albumin/Globulin Ratio 2.38 (1.60-3.17); Anion Gap 13.3 mmol/L (4.00-12.00); Calcium 8.2 mg/dL (8.7-10.3); Carbon Dioxide 27.7 mmol/L (21.6-31.8); Globulin 1.3 g/dL (1.6-3.3); Non-African American GFR(CKD) 100.9 (60.0-200.0); Potassium 3.8 mmol/L (3.5-5.5); Total Bilirubin 0.3 mg/dL (0.3-1.2); Total Protein 4.4 g/dL (6.2-8.2)
[2020-09-07] MEDS: INSULIN ASPART (NovoLOG) 100 UNIT/ML VIAL SQ SCH ×4 (09:36→20:42)
[2020-09-07] MEDS: levETIRAcetam 500 MG TAB PO SCH ×2 (09:42→20:42)
[2020-09-07] MEDS: AMIODARONE 200 MG TAB PO SCH ×2 (09:43→17:39)
[2020-09-07] MEDS: hydrALAZINE HCL 50 MG TAB PO SCH ×2 (09:43→20:42)
[2020-09-07] MEDS: amLODIPine 5 MG TAB PO SCH ×2 (09:43→17:39)
[2020-09-07] MEDS: bisacodyL 5 MG TABLET.DR PO SCH (09:43)
[2020-09-07] MEDS: METOPROLOL TARTRATE 50 MG TAB PO SCH ×2 (09:43→17:39)
[2020-09-07] MEDS: dexAMETHasone 2 MG TAB PO SCH (09:43)
[2020-09-07] MEDS: PANTOPRAZOLE 40 MG/10 ML VIAL IVP SCH ×2 (09:44→20:42)
[2020-09-07] MEDS: VENLAFAXINE HCL ER 150 MG CAP PO SCH (09:44)
[2020-09-07 10:09] LABS: INR 2.65 (0.90-1.11); Prothrombin Time 26.6 sec (9.9-11.9)
--- NOTE | 2020-09-07 10:32 | P.PN ---
Subjective Progress Note Date: 09/07/20 Principal diagnosis: Abdominal pain, GI bleed, hypoxia, recent Covid 19 pneumonitis, post craniotomy secondary to intercurrent hemorrhage, type 2 diabetes. 64-year-old female one of Dr. Siu's patient with past medical history of coronary disease, hypertension, history of DVT and pulmonary embolism 2002, history of fibromyalgia and asthma who was hospitalized at [facility] in until 09/03/2020 significant shortness of breath worsening dyspnea and altered mental status. Patient was diagnosed with Covid 19 pneumonitis was in acute respiratory failure was on very high flow O2 after been on BiPAP for long time and earlier patient was in [facility] for subdural hematoma associated with meningioma in the left frontal lobe which patient underwent left frontal craniotomy and was discharged on 08/13/2020 on seizure precaution medication along with pain management. Patient daughter was RN found to have extremely low oxygen saturation brought her to the emergency department [facility] the time and found to be unresponsive with oxygen level been very low was on BiPAP was not able to provide much history at the time patient has been had help with some her history and family decided not to send her to [place] at the time patient ended up staying in the hospital almost total of 3 weeks recovering from Covid 19 pneumonitis and worsening complication consistent with sepsis bilateral pneumonia along with severe hypoxia and mild fluid overload along with acute ki dney injury. Patient was seen multiple subspecialists in the hospital including cardiology, pulmonary, infectious disease, physical therapy the patient therapy. Patient ended up going to [facility] on oxygen flow between 4-6 L nasal cannula with pulse ox running in the mid 90 has done well until early this morning when developed to have significant abdominal pain with distention and worsening dyspnea and shortness of breath become quite but hypoxic with pulse ox running in the 80s with distended abdomen did not respond to medication medical management ended up transferring patient to the emergency department [facility] where was seen and evaluated her Hemoccult was positive hemoglobin still running 9.1 g no change from before. Patient pulse ox corrected shortly after arrival with minimum change in her oxygen. INR was 2.0 at the time with her current Hemoccult her urine was very positive as well patient will be started on Rocephin GI prophylaxis H&H every 8-12 hours we'll consult gastro- enterology for possible need for endoscopy. 09/05: Patient is afebrile, heart rate 86, blood pressure 99/66, pulse ox 96% on 5 L high flow nasal cannula. Repeat blood work reveals WBC 7.4, hemoglobin 8.3, platelet count 145. Urine culture is in progress. Patient has been continued on ceftriaxone. Consult in place with GI. Patient states that she is feeling better today. Her breathing is better. Breathing status appears stable. She denies having abdominal pain. She did not have any bowel movements overnight. No abdominal tenderness. 09/06: Patient remain stable no further bleeding hemoglobin today is 8.5, patient was seen Dr. Foster enterology scope is due this time. Her oxygen level has been good on 5 L O2 she still having slight pain well subtle and controlled with Dilaudid, patient had 2 episodes of diarrhea through the night otherwise very stable. 09/07: Patient still stable no active bleed at this point, her hemoglobin still in the high 7 no need for transfusion patient does not need any endoscopy currently. She is doing better with pain management her oxygen level remained at 92% with 5 L so far. Her Moses catheter will be removed today try to func tion without it and prepare for getting back to [facility] on Tuesday. Objective - Vital Signs Vital signs: Vital Signs Temp 98.0 F 09/07/20 07:25 Pulse 83 09/07/20 07:25 Resp 18 09/07/20 07:25 BP 113/63 09/07/20 07:25 Pulse Ox 96 09/07/20 07:25 Intake & Output 09/06/20 09/07/20 09/07/20 18:59 06:59 18:59 Intake Total 550 Output Total 925 Balance 550 -925 Intake: IV 300 Sodium Chloride 0.9% 1, 300 000 ml @ 50 mls/hr IV . Q20H [facility] Rx#:[id number] Oral 250 Output: Urine 925 Other: Voiding Method Indwelling Catheter Indwelling Catheter # Bowel Movements 1 - Exam REVIEW OF SYSTEMS CONSTITUTIONAL: Well-developed mildly overweight with mild respiratory distress. EYES: No icterus sclerae, no conjunctivitis. EARS, NOSE, MOUTH, THROAT, and FACE: No sore throat, lymphadenopathy, carotid bruits or deformity. RESPIRATORY: Decreased breath some bilateral especially the right base positive fine rhonchi with mild crackles in might expect wheezes. CARDIOVASCULAR: Palpitation with PND and orthopnea no typical angina. GASTROINTESTINAL: No abdominal pain. No nausea, no vomiting, reported black stool at ECF. GENITOURINARY: Negative for Hematuria or UTI, no kidney stones. INTEGUMENT/BREAST: Negative for any muscular injury with mild osteoarthritis.. HEMATOLOGIC/LYMPHATIC: Negative for bleed or purpura. Mild anemia MUSCULOSKELTAL: Negative for Myalgia or arthralgia. Generalized arthralgia and myalgia. NEURLOGICAL: No LOC, Sz or syncope, blurred vision slight weakness in the left side with a craniotomy and slight mental status change. BEHAVIORAL/PSYCH: Negative, mild depression. ENDOCRINE: Negative. PHYSICAL EXAMINATION General Appearance: Alert, cooperative, no acute distress.. Neck HEENT: Supple, no lymphadenopathy, no thyroid enlargement, no carotid bruits. Lungs: Decreased breath sound bilaterally without rhonchi positive crackles in the bases positive mild inspiratory expiratory wheezes specially in the right side. Chest Wall: Decrease expansion with deep inspiration no tenderness and no deformity was found on exam, no costochondral pain or discomfort. Heart: Irregular rate and rhythm, S1, S2 positive S3 positive tachycardia Back: Symmetric, no curvature, ROM normal, no CVA tenderness. Abdomen: No abdominal distention, no abdominal tenderness. Moses catheter in place. Extremities: Extremities normal, atraumatic, no cyanosis or edema. Pulses: 2+ and symmetric. Skin: Skin color, texture, tugor normal, no rashes or lesions. Neurologic: Alert oriented with slight confusion cranial nerves II through XII intact, positive generalized weakness worsening left side than the right side. - Labs CBC & Chem 7: 09/07/20 05:11 09/07/20 05:11 Labs: Abnormal Lab Results - Last 24 Hours (Table) 09/06/20 09/06/20 09/06/20 Range/Units 12:21 17:43 20:36 RBC (3.80-5.40) m/uL Hgb (11.4-16.0) gm/dL Hct (34.0-46.0) % MCV (80.0-100.0) fL RDW (11.5-15.5) % Macrocytosis PT (9.9-11.9) sec INR (0.90-1.11) Anion Gap (4.00-12.00) mmol/L Creatinine (0.6-1.5) mg/dL BUN/Creatinine Ratio (12.00-20.00) Ratio POC Glucose (mg/dL) 105 H 180 H 168 H (75-99) mg/dL Calcium (8.7-10.3) mg/dL ALT (8-44) U/L Total Protein (6.2-8.2) g/dL Albumin (3.80-4.90) g/dL Globulin (1.6-3.3) g/dL 09/07/20 09/07/20 09/07/20 Range/Units 05:11 05:11 05:11 RBC 2.26 L (3.80-5.40) m/uL Hgb 7.6 L (11.4-16.0) gm/dL Hct 24.4 L (34.0-46.0) % MCV 107.9 H (80.0-100.0) fL RDW 17.7 H (11.5-15.5) % Macrocytosis Marked A PT 26.6 H (9.9-11.9) sec INR 2.65 H (0.90-1.11) Anion Gap 13.30 H (4.00-12.00) mmol/L Creatinine 0.5 L (0.6-1.5) mg/dL BUN/Creatinine Ratio 40.00 H (12.00-20.00) Ratio POC Glucose (mg/dL) (75-99) mg/dL Calcium 8.2 L (8.7-10.3) mg/dL ALT 61 H (8-44) U/L Total Protein 4.4 L (6.2-8.2) g/dL Albumin 3.10 L (3.80-4.90) g/dL Globulin 1.3 L (1.6-3.3) g/dL 09/07/20 Range/Units 07:40 RBC (3.80-5.40) m/uL Hgb (11.4-16.0) gm/dL Hct (34.0-46.0) % MCV (80.0-100.0) fL RDW (11.5-15.5) % Macrocytosis PT (9.9-11.9) sec INR (0.90-1.11) Anion Gap (4.00-12.00) mmol/L Creatinine (0.6-1.5) mg/dL BUN/Creatinine Ratio (12.00-20.00) Ratio POC Glucose (mg/dL) 112 H (75-99) mg/dL Calcium (8.7-10.3) mg/dL ALT (8-44) U/L Total Protein (6.2-8.2) g/dL Albumin (3.80-4.90) g/dL Globulin (1.6-3.3) g/dL Microbiology - Last 24 Hours (Table) 09/04/20 12:50 Urine Culture - Final Urine,Voided Enterococcus faecalis Assessment and Plan Assessment: 1 severe abdominal pain, with acute gastrointestinal bleed most likely from bleeding ulcer and severe gastritis could be the effect of the steroid and anticoagulation, patient be off warfarin for now no fresh frozen plasma require this point and no need for vitamin K we'll consult gastrology nephrology start patient on pantoprazole IV patient will be going for endoscopy. No need for endoscopy and no further bleed at this point. No more pain today. 2 acute blood loss anemia: With mild drop hemoglobin so far we keep watching H&H for the next 2 days every 8-12 hours if the drop in hemoglobin below 8 transfusion be done. No transfusion has been require so far in hemoglobin still running in the high 7. 3 severe hypoxia: With recent history of Covid 19 pneumonitis along with COPD exacerbation, continue O2 titrate oxygen to keep her pulse ox above 90 percentile and if needed BiPAP through the night will be helpful. Still required O2 around 5 feet her. 4 subacute Covid 19 pneumonitis was still have significant scar tissue patient has completed her treatment with antiviral medication still on tapered dose of steroid at this point along with O2 and supportive care. Much better so far repeat another chest x-ray today. 5 acute toxic metabolic encephalopathy due to Covid 19 pneumonitis along with severe hyponatremia has recover some. 6 urinary tract infection and sepsis: Patient will be on Rocephin 1 g daily awaiting for blood and urine culture. 7 history of pulmonary embolism and deep venous thrombosis: Patient is back on warfarin today with try to keep her INR between 2 and 3 still on 2 mg before friend. 8 history of coronary disease: Continue secondary prevention and medication watch for any chest pain or angina. 9 recent history of craniotomy secondary to hemorrhagic stroke with acute left subdural hemorrhage with benign tumor status post left frontal craniotomy. 10 history of hypertension: Remain on hydralazine 50 mg twice a day and metoprolol 50 mg twice a day. 11 A. fib with RVR: Pulse rates under control and patient was on anticoagulation will be held for now still on amiodarone 200 mg twice a day and metoprolol. 12 seizure prophylaxis: Has been on Keppra 5 mg twice a day. 13 severe depression and anxiety and panic attack has been on Effexor XR 150 g daily along with Seroquel 25 mg daily at bedtime. 14 type 2 diabetes: Continue Accu-Chek with sliding scales coverage still on insulin at this point. Discharge planning: Patient be back tomorrow to hopefully on Tuesday.
[2020-09-07 11:33] LABS: Glucose,Whole Blood 147 mg/dL (75-99)
--- NOTE | 2020-09-07 11:46 | XR ---
EXAMINATION TYPE: XR chest 1V portable DATE OF EXAM: 09/07/2020 COMPARISON: 09/01/2020 INDICATION: Pneumonia TECHNIQUE: Single frontal view of the chest is obtained. FINDINGS: The heart size is prominent. The pulmonary vasculature is prominent. Patchy infiltrates are present bilaterally. Findings are worsening over the interval. IMPRESSION: 1. Worsening patchy bilateral lung infiltrates. Correlate for atypical pneumonia. Continued follow-up is recommended.
--- NOTE | 2020-09-07 11:50 | PN ---
PROGRESS NOTE DATE OF SERVICE: 09/07/2020 Patient is a 64-year-old pleasant white female admitted to hospital with lower abdominal pain, rectal bleeding, possible acute colitis, on antibiotics. The patient is doing much better. The abdominal pain has resolved. She had three bowel movements yesterday, they were all soft, no bleeding the days. No further episodes of nausea, vomiting. Overall she is feeling much better. PHYSICAL EXAMINATION: She appears comfortable. No apparent distress. Vital signs are stable. Blood pressure is 113/63, pulse 83, temperature 98 HEENT examination unremarkable. Conjunctivae pink. Sclerae anicteric. Oral cavity no lesions. NECK: No JVD or lymph node enlargement. CHEST was clear to auscultation. HEART: Regular rate and rhythm. ABDOMEN: Soft, it was nontender, nondistended. Bowel sounds are positive. No organomegaly. EXTREMITIES: No pedal edema. SKIN: No rashes. NEUROLOGIC: Alert and oriented x3. No focal deficits. LABS: WBC 6, hemoglobin 7.6, platelets are 163. BUN and creatinine are 20 and 0.5 respectively. AST, ALT are 16 and 61 respectively. T bilirubin and alkaline phosphatase are normal. IMPRESSION: 1. Acute lower abdominal pain/rectal bleeding for the last two days duration. The bleeding has resolved. Abdominal pain has completely resolved. CT scan shows some thickening of the rectum and left colon suspicious for acute colitis, possibly infectious versus ischemic in etiology, appears to be resolving. 2. Recent COVID-19 pneumonia with prolonged hospitalization at [facility] a month ago. 3. History of hypertension. 4. History of deep venous thrombosis and pulmonary embolism, on Coumadin which is currently on hold. RECOMMENDATION: 1. Continue with symptomatic and supportive care. 2. Monitor CBC daily. 3. Once again, I had a lengthy discussion with the patient regarding GI workup including an EGD and colonoscopy, but at this time she adamantly refuses to have any endoscopic intervention done. Hence, at this time we will advance her diet as tolerated and continue with current medical regimen. I did have a discussion with her also and I recommended that we can always proceed with EGD and colonoscopy on outpatient basis once her overall condition improves. She is agreeable with this plan. Thank you for this consultation. MMODL / IJN: [id number] /
[2020-09-07 17:07] LABS: Glucose,Whole Blood 200 mg/dL (75-99)
[2020-09-07] MEDS: THIAMINE 100 MG TAB PO SCH (17:39)
[2020-09-07] MEDS: ASCORBIC ACID 500 MG TAB PO SCH (17:39)
[2020-09-07] MEDS: CYANOCOBALAMIN 500 MCG TAB PO SCH ×2 (17:39→17:42)
[2020-09-07] MEDS: ZINC SULFATE 220 MG CAP PO SCH (17:39)
[2020-09-07] MEDS: DOCUSATE 100 MG CAP PO SCH ×2 (17:39→17:42)
[2020-09-07] MEDS: CHOLECALCIFEROL 25 MCG (1000 IU) TABLET PO SCH (17:39)
[2020-09-07] MEDS ORDERED: WARFARIN 1.25 MG TAB PO SCH (18:00)
[2020-09-07 20:37] LABS: Glucose,Whole Blood 168 mg/dL (75-99)
[2020-09-07] MEDS: QUEtiapine 25 MG TAB PO SCH (20:42)
[2020-09-07] MEDS: MELATONIN 5 MG TABLET PO SCH (20:45)
[2020-09-08] MEDS: SODIUM CHLORIDE 0.9% 1,000 ML IV SCH (02:03)
[2020-09-08] MEDS: HYDROmorphone 1 MG/ML 1 ML SYRINGE IVP PRN (02:03)
[2020-09-08 04:59] LABS: Anisocytosis Slight; Basophils % (A) 0 %; Eosinophils # (A) 0.3 k/uL (0-0.7); Eosinophils % (A) 6 %; HCT 24.6 % (34.0-46.0); HGB 7.9 gm/dL (11.4-16.0); Hypochromasia Slight; Lymphocytes # (A) 1.1 k/uL (1.0-4.8); Lymphocytes % (A) 20 %; MCH 33.8 pg (25.0-35.0); MCHC 31.9 g/dL (31.0-37.0); Macrocytosis Marked; Mean Platelet Volume 7.1; Monocytes # (A) 0.2 k/uL (0-1.0); Monocytes % (A) 3 %; Neutrophils # (A) 3.6 k/uL (1.3-7.7); Neutrophils % (A) 68 %; Platelet Count 150 k/uL (150-450); RBC 2.33 m/uL (3.80-5.40); RDW 17.8 % (11.5-15.5); WBC 5.3 k/uL (3.8-10.6)
[2020-09-08 05:08] LABS: MCV 105.9 fL (80.0-100.0)
[2020-09-08 05:11] LABS: INR 3.4 (<1.2); Prothrombin Time 32.8 sec (9.0-12.0)
[2020-09-08] MEDS: LEVOTHYROXINE 75 MCG TAB PO SCH (06:11)
[2020-09-08 07:26] LABS: Glucose,Whole Blood 85 mg/dL (75-99)
[2020-09-08] MEDS: SYMBICORT 80-4.5 MCG INHALER INHALATION SCH (07:36)
[2020-09-08] MEDS: INSULIN ASPART (NovoLOG) 100 UNIT/ML VIAL SQ SCH ×2 (07:38→13:18)
[2020-09-08] MEDS: hydrALAZINE HCL 50 MG TAB PO SCH (08:59)
[2020-09-08] MEDS: dexAMETHasone 2 MG TAB PO SCH (08:59)
[2020-09-08] MEDS: AMIODARONE 200 MG TAB PO SCH ×2 (08:59→17:41)
[2020-09-08] MEDS: bisacodyL 5 MG TABLET.DR PO SCH (09:00)
[2020-09-08] MEDS: METOPROLOL TARTRATE 50 MG TAB PO SCH ×2 (09:00→17:40)
[2020-09-08] MEDS: VENLAFAXINE HCL ER 150 MG CAP PO SCH (09:00)
[2020-09-08] MEDS: PANTOPRAZOLE 40 MG/10 ML VIAL IVP SCH (09:00)
[2020-09-08] MEDS: levETIRAcetam 500 MG TAB PO SCH (09:00)
[2020-09-08] MEDS: amLODIPine 5 MG TAB PO SCH ×2 (09:00→17:41)
[2020-09-08 09:03] LABS: African American GFR (CKD) 116.9 (60.0-200.0); Albumin 3.3 g/dL (3.80-4.90); Albumin/Globulin Ratio 2.36 (1.60-3.17); Calcium 8.3 mg/dL (8.7-10.3); Globulin 1.4 g/dL (1.6-3.3); Non-African American GFR(CKD) 100.9 (60.0-200.0); Potassium 3.7 mmol/L (3.5-5.5); Total Bilirubin 0.3 mg/dL (0.3-1.2); Total Protein 4.7 g/dL (6.2-8.2)
--- NOTE | 2020-09-08 10:27 | P.PN ---
Subjective Progress Note Date: 09/08/20 HISTORY OF PRESENT ILLNESS 64-year-old female one of Dr. Siu's patient with past medical history of coronary disease, hypertension, history of DVT and pulmonary embolism 2002, history of fibromyalgia and asthma who was hospitalized at [facility] in until 09/03/2020 significant shortness of breath worsening dyspnea and altered mental status. Patient was diagnosed with Covid 19 pneumonitis was in acute respiratory failure was on very high flow O2 after been on BiPAP for long time and earlier patient was in [facility] for subdural hematoma associated with meningioma in the left frontal lobe which patient underwent left frontal craniotomy and was discharged on 08/13/2020 on seizure precaution medication along with pain management. Patient daughter was RN found to have extremely low oxygen saturation brought her to the emergency department [facility] the time and found to be unresponsive with oxygen level been very low was on BiPAP was not able to provide much history at the time patient has been had help with some her history and family decided not to send her to [place] at the time patient ended up staying in the hospital almost total of 3 weeks recovering from Covid 19 pneumonitis and worsening complication consistent with sepsis bilateral pneumonia along with severe hypoxia and mild fluid overload along with acute kidney injury. Patient was seen multiple subspecialists in the hospital including cardiology, pulmonary, infectious disease, physical therapy the patient therapy. Patient ended up going to [facility] on oxygen flow between 4-6 L nasal cannula with pulse ox running in the mid 90 has done well until early this morning when developed to have significant abdominal pain with distention and worsening dyspnea and shortness of breath become quite but hypoxic with pulse ox running in the 80s with distended abdomen did not respond to medication medical management ended up transferring patient to the emergency department [facility] where was seen and evaluated her Hemoccult was positive hemoglobin still running 9.1 g no change from before. Patient pulse ox corrected shortly after arrival with minimum change in her oxygen. INR was 2.0 at the time with her current Hemoccult her urine was very positive as well patient will be started on Rocephin GI prophylaxis H&H every 8-12 hours we'll consult gastro-enterology for possible need for endoscopy. 09/05: Patient is afebrile, heart rate 86, blood pressure 99/66, pulse ox 96% on 5 L high flow nasal cannula. Repeat blood work reveals WBC 7.4, hemoglobin 8.3, platelet count 145. Urine culture is in progress. Patient has been continued on ceftriaxone. Consult in place with GI. Patient states that she is feeling better today. Her breathing is better. Breathing status appears stable. She denies having abdominal pain. She did not have any bowel movements overnight. No abdominal tenderness. 09/06: Patient remain stable no further bleeding hemoglobin today is 8.5, patient was seen Dr. Foster enterology scope is due this time. Her oxygen level has been good on 5 L O2 she still having slight pain well subtle and controlled with Dilaudid, patient had 2 episodes of diarrhea through the night otherwise very stable. 09/07: Patient still stable no active bleed at this point, her hemoglobin still in the high 7 no need for transfusion patient does not need any endoscopy currently. She is doing better with pain management her oxygen level remained at 92% with 5 L so far. Her Moses catheter will be removed today try to function without it and prepare for getting back to [facility] on Tuesday. 09/08: Repeat chest x-ray completed yesterday reveals worsening patchy bilateral lung infiltrates. Correlate for atypical pneumonia. She denies significant cough, no sputum production. Pulse ox is 93% on 5 L high flow nasal cannula. She's been afebrile, heart rate 87, blood pressure 143/74. Anticipate discharge back to [facility] today once patient is evaluated by [facility] and cleared. REVIEW OF SYSTEMS CONSTITUTIONAL: Well-developed mildly overweight with no respiratory distress. EYES: No icterus sclerae, no conjunctivitis. EARS, NOSE, MOUTH, THROAT, and FACE: No sore throat, lymphadenopathy, carotid bruits or deformity. RESPIRATORY: Denies shortness of breath. Denies cough. Denies sputum production. CARDIOVASCULAR: Palpitation with PND and orthopnea no typical angina. GASTROINTESTINAL: No abdominal pain. No nausea, no vomiting, reported black stool at [facility]. GENITOURINARY: Negative for Hematuria or UTI, no kidney stones. INTEGUMENT/BREAST: Negative for any muscular injury with mild osteoarthritis.. HEMATOLOGIC/LYMPHATIC: Negative for bleed or purpura. Mild anemia MUSCULOSKELTAL: Negative for Myalgia or arthralgia. Generalized arthralgia and myalgia. NEURLOGICAL: No LOC, Sz or syncope, blurred vision slight weakness in the left side with a craniotomy and slight mental status change. BEHAVIORAL/PSYCH: Negative, mild depression. ENDOCRINE: Negative. PHYSICAL EXAMINATION General Appearance: Alert, cooperative, no acute distress. Patient is found resting in bed. Neck HEENT: Supple, no lymphadenopathy, no thyroid enlargement, no carotid bruits. Lungs: Decreased breath sound bilaterally without rhonchi positive crackles in the bases positive mild inspiratory expiratory wheezes specially in the right side. Chest Wall: Decrease expansion with deep inspiration no tenderness and no deformity was found on exam, no costochondral pain or discomfort. Heart: Irregular rate and rhythm, S1, S2 positive S3 positive tachycardia Back: Symmetric, no curvature, ROM normal, no CVA tenderness. Abdomen: No abdominal distention, no abdominal tenderness. Moses catheter in place. Extremities: Extremities normal, atraumatic, no cyanosis or edema. Pulses: 2+ and symmetric. Skin: Skin color, texture, tugor normal, no rashes or lesions. Neurologic: Alert oriented with slight confusion cranial nerves II through XII intact, positive generalized weakness worsening left side than the right side. ASSESSMENT AND PLAN 1 severe abdominal pain, with acute gastrointestinal bleed most likely from bleeding ulcer and severe gastritis could be the effect of the steroid and anticoagulation, patient be off warfarin for now no fresh frozen plasma require this point and no need for vitamin K, consult gastroenterology, continue Protonix IV push 40 mg twice daily. 2 acute blood loss anemia. Monitor CBC. 3 severe hypoxia: With recent history of Covid 19 pneumonitis along with COPD exacerbation, continue O2 titrate oxygen to keep her pulse ox above 90 percentile and if needed BiPAP through the night will be helpful. 4 subacute Covid 19 pneumonitis was still have significant scar tissue patient has completed her treatment with antiviral medication still on tapered dose of steroid at this point along with O2 and supportive care. 5 acute toxic metabolic encephalopathy due to Covid 19 pneumonitis along with severe hyponatremia, back to baseline. 6 urinary tract infection and sepsis: Patient will be on Rocephin 1 g daily awaiting for blood and urine culture. Patient will be transitioned to Ceftin at discharge. 7 history of pulmonary embolism and deep venous thrombosis: Patient will be off anticoagulation to the bleed stopped. 8 history of coronary disease: Continue secondary prevention and medication watch for any chest pain or angina. 9 recent history of craniotomy secondary to hemorrhagic stroke with acute left subdural hemorrhage with benign tumor status post left frontal craniotomy. 10 history of hypertension: Remain on hydralazine 50 mg twice a day and metoprolol 50 mg twice a day. 11 A. fib with RVR, paroxysmal atrial fibrillation: Pulse rates under control and patient was on anticoagulation will be held for now still on amiodarone 200 mg twice a day and metoprolol. 12 seizure prophylaxis: Has been on Keppra 5 mg twice a day. 13 severe depression and anxiety and panic attack has been on Effexor XR 150 g daily along with Seroquel 25 mg daily at bedtime. 14 type 2 diabetes: Continue Accu-Chek with sliding scales coverage still on insulin at this point. 15 GI prophylaxis: Patient was started on Pepcid Will add pantoprazole 40 mg twice a day. 16 DVT prophylaxis: Patient will have knee-high VANIA hose and Venodyne boots and eventually back on anticoagulation. 17 stage II pressure ulcer coccyx, present on admission. Continue local wound care. 18 thrombocytopenia. Continue to monitor closely. CODE STATUS: Full code. DISCHARGE PLAN Return to [facility] Impression and plan of care have been directed as dictated by the signing physician. Karyn Tamayo nurse practitioner acting as scribe for signing physician. Objective - Vital Signs Vital signs: Vital Signs Temp 98.2 F 09/08/20 07:37 Pulse 85 09/08/20 07:37 Resp 18 09/08/20 07:37 BP 143/74 09/08/20 07:37 Pulse Ox 93 L 09/08/20 07:37 Intake & Output 09/07/20 09/08/20 09/08/20 18:59 06:59 18:59 Other: Voiding Method Indwelling Catheter Diaper Incontinent # Voids 0 - Labs CBC & Chem 7: 09/08/20 04:40 09/08/20 04:40 Labs: Abnormal Lab Results - Last 24 Hours (Table) 09/07/20 09/07/20 09/07/20 Range/Units 05:11 05:11 11:32 RBC (3.80-5.40) m/uL Hgb (11.4-16.0) gm/dL Hct (34.0-46.0) % MCV (80.0-100.0) fL RDW (11.5-15.5) % Macrocytosis PT 26.6 H (9.9-11.9) sec INR 2.65 H (0.90-1.11) Anion Gap 13.30 H (4.00-12.00) mmol/L Creatinine 0.5 L (0.6-1.5) mg/dL BUN/Creatinine Ratio 40.00 H (12.00-20.00) Ratio POC Glucose (mg/dL) 147 H (75-99) mg/dL Calcium 8.2 L (8.7-10.3) mg/dL ALT 61 H (8-44) U/L Total Protein 4.4 L (6.2-8.2) g/dL Albumin 3.10 L (3.80-4.90) g/dL Globulin 1.3 L (1.6-3.3) g/dL 09/07/20 09/07/20 09/08/20 Range/Units 17:05 20:35 04:40 RBC (3.80-5.40) m/uL Hgb (11.4-16.0) gm/dL Hct (34.0-46.0) % MCV (80.0-100.0) fL RDW (11.5-15.5) % Macrocytosis PT 32.8 H (9.9-11.9) sec INR 3.4 H (0.90-1.11) Anion Gap (4.00-12.00) mmol/L Creatinine (0.6-1.5) mg/dL BUN/Creatinine Ratio (12.00-20.00) Ratio POC Glucose (mg/dL) 200 H 168 H (75-99) mg/dL Calcium (8.7-10.3) mg/dL ALT (8-44) U/L Total Protein (6.2-8.2) g/dL Albumin (3.80-4.90) g/dL Globulin (1.6-3.3) g/dL 09/08/20 Range/Units 04:40 RBC 2.33 L (3.80-5.40) m/uL Hgb 7.9 L (11.4-16.0) gm/dL Hct 24.6 L (34.0-46.0) % MCV 105.9 H (80.0-100.0) fL RDW 17.8 H (11.5-15.5) % Macrocytosis Marked A PT (9.9-11.9) sec INR (0.90-1.11) Anion Gap (4.00-12.00) mmol/L Creatinine (0.6-1.5) mg/dL BUN/Creatinine Ratio (12.00-20.00) Ratio POC Glucose (mg/dL) (75-99) mg/dL Calcium (8.7-10.3) mg/dL ALT (8-44) U/L Total Protein (6.2-8.2) g/dL Albumin (3.80-4.90) g/dL Globulin (1.6-3.3) g/dL
--- NOTE | 2020-09-08 10:36 | P.DS ---
Providers Date of admission: 09/05/20 09:50 Expected date of discharge: 09/08/20 Attending physician: Valentín Ariza Consults: 09/04/20 14:56 Consult Physician Urgent Consulting Provider: Kassidy Crawford Consult Reason/Comments: acute gib, coumadin coagulopathy Do you want consulting provider notified?: Yes 09/08/20 05:26 Consult Physician Routine Consulting Provider: Lynette Grider Consult Reason/Comments: COVID 19 pneumonitis with worsening CXR Do you want consulting provider notified?: Yes Primary care physician: [facility] Course: HISTORY OF PRESENT ILLNESS 64-year-old female one of Dr. Siu's patient with past medical history of coronary disease, hypertension, history of DVT and pulmonary embolism 2002, history of fibromyalgia and asthma who was hospitalized at [facility] in until 09/03/2020 significant shortness of breath worsening dyspnea and altered mental status. Patient was diagnosed with Covid 19 pneumonitis was in acute respiratory failure was on very high flow O2 after been on BiPAP for long time and earlier patient was in [facility] for subdural hematoma associated with meningioma in the left frontal lobe which patient underwent left frontal craniotomy and was discharged on 08/13/2020 on seizure precaution medication along with pain management. Patient daughter was RN found to have extremely low oxygen saturation brought her to the emergency department [facility] the time and found to be unresponsive with oxygen level been very low was on BiPAP was not able to provide much history at the time patient has been had help with some her history and family decided not to send her to [place] at the time patient ended up staying in the hospital almost total of 3 weeks recovering from Covid 19 pneu monitis and worsening complication consistent with sepsis bilateral pneumonia along with severe hypoxia and mild fluid overload along with acute kidney injury. Patient was seen multiple subspecialists in the hospital including cardiology, pulmonary, infectious disease, physical therapy the patient therapy. Patient ended up going to [facility] on oxygen flow between 4-6 L nasal cannula with pulse ox running in the mid 90 has done well until early this morning when developed to have significant abdominal pain with distention and worsening dyspnea and shortness of breath become quite but hypoxic with pulse ox running in the 80s with distended abdomen did not respond to medication medical management ended up transferring patient to the emergency department [facility] where was seen and evaluated her Hemoccult was positive hemoglobin still running 9.1 g no change from before. Patient pulse ox corrected shortly after arrival with minimum change in her oxygen. INR was 2.0 at the time with her current Hemoccult her urine was very positive as well patient will be started on Rocephin GI prophylaxis H&H every 8-12 hours we'll consult gastro- enterology for possible need for endoscopy. 09/05: Patient is afebrile, heart rate 86, blood pressure 99/66, pulse ox 96% on 5 L high flow nasal cannula. Repeat blood work reveals WBC 7.4, hemoglobin 8.3, platelet count 145. Urine culture is in progress. Patient has been continued on ceftriaxone. Consult in place with GI. Patient states that she is feeling better today. Her breathing is better. Breathing status appears stable. She denies having abdominal pain. She did not have any bowel movements overnight. No abdominal tenderness. 09/06: Patient remain stable no further bleeding hemoglobin today is 8.5, patient was seen Dr. Foster enterology scope is due this time. Her oxygen level has been good on 5 L O2 she still having slight pain well subtle and controlled with Dilaudid, patient had 2 episodes of diarrhea through the night otherwise very stable. 09/07: Patient still stable no active bleed at this point, her hemoglobin still in the high 7 no need for transfusion patient does not need any endoscopy currently. She is doing better with pain management her oxygen level remained at 92% with 5 L so far. Her Moses catheter will be removed today try to function without it and prepare for getting back to [facility] on Tuesday. 09/08: Repeat chest x-ray completed yesterday reveals worsening patchy bilateral lung infiltrates. Correlate for atypical pneumonia. She denies significant cough, no sputum production. Pulse ox is 93% on 5 L high flow nasal cannula. She's been afebrile, heart rate 87, blood pressure 143/74. Urine cultures positive for Enterococcus faecalis. Anticipate discharge back to [facility] today once patient is evaluated by pulmonary medicine and cleared. Patient has been cleared by pulmonary medicine. DISCHARGE DIAGNOSES 1 severe abdominal pain, with acute gastrointestinal bleed most likely from bleeding ulcer and severe gastritis could be the effect of the steroid and anticoagulation 2 acute blood loss anemia. 3. Chronic hypoxic respiratory failure secondary to recent history of Covid 19 pneumonitis along with COPD exacerbation 4 subacute Covid 19 pneumonitis 5 acute toxic metabolic encephalopathy due to Covid 19 pneumonitis along with severe hyponatremia, back to baseline. 6 urinary tract infection and sepsis. 7 history of pulmonary embolism and deep venous thrombosis 8 history of coronary disease 9 recent history of craniotomy secondary to hemorrhagic stroke with acute left subdural hemorrhage with benign tumor status post left frontal craniotomy. 10 history of hypertension 11 A. fib with RVR, paroxysmal atrial fibrillation 12 seizure prophylaxis 13 severe depression and anxiety and panic attack 14 type 2 diabetes 15 stage II pressure ulcer coccyx, present on admission. 16 thrombocytopenia. DISCHARGE PLAN Return to [facility] Impression and plan of care have been directed as dictated by the signing physician. Karyn Tamayo nurse practitioner acting as scribe for signing physician. Patient Condition at Discharge: Stable Plan - Discharge Summary Discharge Rx Participant: No New Discharge Prescriptions: New Nitrofurantoin Macrocrystal [Macrodantin] 100 mg PO QID #20 cap Continue Docusate [Colace] 100 mg PO DAILY@1700 Cholecalciferol [Vitamin D3 (25 Mcg = 1000 Iu)] 1,000 unit PO DAILY@1700 Venlafaxine HCl ER [Effexor XR] 150 mg PO DAILY@0800 amLODIPine BESYLATE [Norvasc] 5 mg PO BID@0800,1700 Albuterol Inhaler [Ventolin Hfa Inhaler] 1 puff INHALATION RT-Q6H PRN PRN Reason: Shortness Of Breath Bisacodyl 10 mg PO DAILY@0800 Fluticasone/Vilanterol [Breo Ellipta 100-25 Mcg Inhaler] 1 puff INHALATION RT-DAILY@0800 levETIRAcetam [Keppra] 500 mg PO BID@0800,2100 Levothyroxine Sodium [Synthroid] 37.5 mcg PO DAILY@0600 Lidocaine 4% Cream [Lmx 4] 1 applic TOPICAL Q4H PRN applic PRN Reason: Pain Magnesium Hydroxide [Milk of Magnesia Concentrate] 2,400 mg PO DAILY PRN ml PRN Reason: Constipation Calcium Carbonate [Tums] 1,000 mg PO QID PRN chew PRN Reason: Heartburn Amiodarone [Cordarone] 200 mg PO BID@0800,1700 Ascorbic Acid [Vitamin C] 1,000 mg PO DAILY@1700 bisacodyL [Dulcolax] 10 mg RECTAL DAILY PRN PRN Reason: Constipation Cyanocobalamin [Vitamin B-12] 1,000 mcg PO DAILY@1700 Glucerna Shake 1 can PO AC-TID hydrALAZINE HCL [Apresoline] 50 mg PO BID@0800,2100 INSULIN ASPART (NovoLOG) [NovoLOG (formulary)] See Protocol SQ ACHS Melatonin 5 mg PO HS@2100 Metoprolol Tartrate [Lopressor] 50 mg PO BID@0800,1700 Na Phos,M-B/Na Phos,Di-Ba [Fleet Adult] 133 ml RECTAL DAILY PRN PRN Reason: Constipation QUEtiapine [SEROquel] 25 mg PO HS@2100 Thiamine [Vitamin B-1] 100 mg PO DAILY@1700 Zinc Sulfate [Orazinc] 220 mg PO DAILY@1700 HYDROcodone/APAP 5-325MG [[place] 5-325] 1 tab PO Q4HR PRN #18 tab PRN Reason: Pain Changed Warfarin [Coumadin] 1.5 mg PO DAILY@1700 #0 dexAMETHasone [Dexamethasone] 6 mg PO DAILY@0800 3 Days #0 Famotidine [Pepcid] 20 mg PO BID #0 Discharge Medication List Cholecalciferol [Vitamin D3 (25 Mcg = 1000 Iu)] 1,000 unit PO DAILY@17012/28/15 [History] Docusate [Colace] 100 mg PO DAILY@17012/28/15 [History] Venlafaxine HCl ER [Effexor XR] 150 mg PO DAILY@0800 12/28/15 [History] amLODIPine BESYLATE [Norvasc] 5 mg PO BID@0800,1700 07/27/17 [History] Albuterol Inhaler [Ventolin Hfa Inhaler] 1 puff INHALATION RT-Q6H PRN 08/16/20 [History] Bisacodyl 10 mg PO DAILY@0800 08/16/20 [History] Fluticasone/Vilanterol [Breo Ellipta 100-25 Mcg Inhaler] 1 puff INHALATION RT- DAILY@0800 08/16/20 [History] Levothyroxine Sodium [Synthroid] 37.5 mcg PO DAILY@0600 08/16/20 [History] levETIRAcetam [Keppra] 500 mg PO BID@0800,2100 01/02/21 [History] Calcium Carbonate [Tums] 1,000 mg PO QID PRN chew 09/03/20 [Rx] Lidocaine 4% Cream [Lmx 4] 1 applic TOPICAL Q4H PRN applic 09/03/20 [Rx] Magnesium Hydroxide [Milk of Magnesia Concentrate] 2,400 mg PO DAILY PRN ml 09/03/20 [Rx] Amiodarone [Cordarone] 200 mg PO BID@0800,169909/04/20 [History] Ascorbic Acid [Vitamin C] 1,000 mg PO DAILY@169909/04/20 [History] Cyanocobalamin [Vitamin B-12] 1,000 mcg PO DAILY@169909/04/20 [History] Glucerna Shake 1 can PO AC-TID 09/04/20 [History] INSULIN ASPART (NovoLOG) [NovoLOG (formulary)] See Protocol SQ ACHS 09/04/20 [History] Melatonin 5 mg PO HS@209909/04/20 [History] Metoprolol Tartrate [Lopressor] 50 mg PO BID@0800,169909/04/20 [History] Na Phos,M-B/Na Phos,Di-Ba [Fleet Adult] 133 ml RECTAL DAILY PRN 09/04/20 [History] QUEtiapine [SEROquel] 25 mg PO HS@209909/04/20 [History] Thiamine [Vitamin B-1] 100 mg PO DAILY@169909/04/20 [History] Zinc Sulfate [Orazinc] 220 mg PO DAILY@169909/04/20 [History] bisacodyL [Dulcolax] 10 mg RECTAL DAILY PRN 09/04/20 [History] hydrALAZINE HCL [Apresoline] 50 mg PO BID@0800,209909/04/20 [History] Famotidine [Pepcid] 20 mg PO BID #0 09/08/20 [Rx] HYDROcodone/APAP 5-325MG [[place] 5-325] 1 tab PO Q4HR PRN #18 tab 09/08/20 [Rx] Nitrofurantoin Macrocrystal [Macrodantin] 100 mg PO QID #20 cap 09/08/20 [Rx] Warfarin [Coumadin] 1.5 mg PO DAILY@0 #0 09/08/20 [Rx] dexAMETHasone [Dexamethasone] 6 mg PO DAILY@0800 3 Days #0 09/08/20 [Rx] Follow up Appointment(s)/Referral(s): Valentín Ariza MD [Primary Care Provider] - 1 Week (At [facility]) Discharge Disposition: TRANSFER TO SNF/ECF
[2020-09-08 11:48] LABS: Glucose,Whole Blood 149 mg/dL (75-99)
--- NOTE | 2020-09-08 13:09 | P.CNPUL ---
History of Present Illness Consult date: 09/08/20 Requesting physician: Valentín Ariza Reason for consult: dyspnea, hypoxemia, pneumonia, abnormal CXR/CT Chief complaint: Shortness of breath, recent COVID 19 pneumonitis History of present illness: This is a 64-year-old white female patient with multiple medical problems who was recently hospitalized for a period of 20 days from 08/16/2020 through 09/05/2020 with severe hypoxic respiratory failure related to COVID 19 pneumonia. Patient required admission to the intensive care unit during that admission and high flow oxygen, she was treated with Remdesivir, she received 2 units of convalescent plasma, received Lovenox at therapeutic doses, and IV steroids. She was gradually weaned down from high flow oxygen to 5 L/m and discharged to [facility]. Patient has a recent history of subdural hematoma associated with a meningioma in the left frontal lobe status post left frontal craniotomy for which she was hospitalized at [facility] and discharged on 08/13/2020. She remains on seizure medications in the form of Keppra. Patient is on Coumadin for history of DVT and pulmonary embolism in the past. On 09/04/2020 patient was readmitted to the hospital when she was brought back by EMS from the skilled nursing for evaluation of abdominal pain. Patient had been complaining of constipation, she was given a laxative, she reported some nausea and vomiting with possible hematemesis. Reportedly there were also dark tarry stools.. No the possibility of some vaginal bleeding per skilled nursing records. Patient denied any ongoing fevers or chills, or abdominal pain was in the periumbilical area. Her O2 saturations have been anywhere from 82-89% on 5 L of oxygen. While in the hospital her pulse ox has been anywhere from 91-100% on room air. Patient did not have an admission chest x-ray, her chest x-ray today on 09/07/2020 is the first one during this admission, showing worsening patchy bilateral lung infiltrates compared to her most previous chest x-ray on 09/01/2020. While inpatient patient did not have any further episodes of rectal bleeding, no melena, no nausea or vomiting, Coumadin remains on hold, she is on IV Protonix GI service is following. CT of the abdomen showed thickening of the rectum and of the left colon and the clinical picture was more consistent with acute colitis possibly ischemic in etiology. Patient did have a drop in hemoglobin from 9.1 to 8.3 g/dL. During her evaluation patient seems to be generally swollen, she is on 5 L of oxygen and a pulse ox of 93%, chest x-ray showed done prominent pulmonary vasculature, with suspicion of fluid overload in addition to patchy infiltrates bilaterally. No fever or chills, breathing comfortably, no abdominal pain, no cough, no chest discomfort. Remains on IV fluids 0.9 was seen at 50 ML per hour, today's labs have been noted, INR is 3.4, white count is 5.3, hemoglobin is 7.9, electrolites are within normal limits, BUN is 21 creatinine 0.5 Review of Systems All systems: negative Constitutional: Denies chills, Denies fever Eyes: denies blurred vision, denies pain Ears, nose, mouth and throat: Denies headache, Denies sore throat Cardiovascular: Denies chest pain, Denies shortness of breath Respiratory: Reports dyspnea, Reports home oxygen, Denies cough Gastrointestinal: Reports abdominal pain, Reports melena, Reports nausea, Reports vomiting, Denies diarrhea Genitourinary: Denies dysuria, Denies hematuria Musculoskeletal: Denies myalgias Integumentary: Denies pruritus, Denies rash Neurological: Denies numbness, Denies weakness Psychiatric: Denies anxiety, Denies depression Endocrine: Denies fatigue, Denies weight change Past Medical History Past Medical History: Asthma, Coronary Artery Disease (CAD), Deep Vein Thrombosis (DVT), Fibromyalgia, GERD/Reflux, Hyperlipidemia, Hypertension, Osteoarthritis (OA), Pneumonia, Thyroid Disorder Additional Past Medical History / Comment(s): "osteopenia, renal insufficiency, back pain chronic per patient" History of Any Multi-Drug Resistant Organisms: None Reported Past Surgical History: Appendectomy, Cholecystectomy, Hysterectomy, Joint Replacement Additional Past Surgical History / Comment(s): TOTAL RIGHT AND LEFT HIP, TOTAL RIGHT AND LEFT KNEE, BILATERAL FOOT SURGERY, BILATERAL HAND SURGERY-JOINT REPLACEMENT, Marissa filter placement, left wrist tendon repair, posterior lateral decompression and fusion of the lumbar spine Past Anesthesia/Blood Transfusion Reactions: No Reported Reaction Past Psychological History: No Psychological Hx Reported Smoking Status: Current every day smoker Past Alcohol Use History: Occasional Additional Past Alcohol Use History / Comment(s): Patient is a smoker of half a pack per day since she was 13 years of age. She denies any medical marijuana, marijuana, street drug or alcohol use. She was at home with her . She does not use aid for ambulation. Past Drug Use History: Marijuana Additional Drug Use History / Comment(s): edibles with THC - Past Family History Father Family Medical History: Congestive Heart Failure (CHF) Additional Family Medical History / Comment(s): Father is alive at age 85 currently at the hospice home with history of mesothelioma Mother Family Medical History: Cancer, Deep Vein Thrombosis (DVT) Additional Family Medical History / Comment(s): Mother is alive at age 85 currently at the hospice home with history of dementia and GI cancer. Sister(s) Family Medical History: Cancer Additional Family Medical History / Comment(s): Patient has 3 sisters and 3 brothers. Daughter(s) Additional Family Medical History / Comment(s): Patient is 3 daughters and one has history of arrhythmia. Patient has 2 sons with no major medical problems. Medications and Allergies Home Medications Medication Instructions Recorded Confirmed Type Cholecalciferol [Vitamin D3 (25 1,000 unit PO DAILY@1700 12/28/15 09/04/20 H istory Mcg = 1000 Iu)] Docusate [Colace] 100 mg PO DAILY@1700 12/28/15 09/04/20 History Venlafaxine HCl ER [Effexor XR] 150 mg PO DAILY@0800 12/28/15 09/04/20 History amLODIPine BESYLATE [Norvasc] 5 mg PO BID@0800,1700 07/27/17 09/04/20 History Albuterol Inhaler [Ventolin Hfa 1 puff INHALATION RT-Q6H PRN 08/16/20 09/04/20 History Inhaler] Bisacodyl 10 mg PO DAILY@0800 08/16/20 09/04/20 History Fluticasone/Vilanterol [Breo 1 puff INHALATION RT-DAILY@0800 08/16/20 09/04/20 History Ellipta 100-25 Mcg Inhaler] Levothyroxine Sodium [Synthroid] 37.5 mcg PO DAILY@0600 08/16/20 09/04/20 History levETIRAcetam [Keppra] 500 mg PO BID@0800,2100 08/16/20 09/04/20 History Calcium Carbonate [Tums] 1,000 mg PO QID PRN chew 09/03/20 09/04/20 Rx Lidocaine 4% Cream [Lmx 4] 1 applic TOPICAL Q4H PRN applic 09/03/20 09/04/20 Rx Magnesium Hydroxide [Milk of 2,400 mg PO DAILY PRN ml 09/03/20 09/04/20 Rx Magnesia Concentrate] Amiodarone [Cordarone] 200 mg PO BID@0800,169909/04/20 09/04/20 History Ascorbic Acid [Vitamin C] 1,000 mg PO DAILY@169909/04/20 09/04/20 History Cyanocobalamin [Vitamin B-12] 1,000 mcg PO DAILY@169909/04/20 09/04/20 History Glucerna Shake 1 can PO AC-TID 09/04/20 09/04/20 History INSULIN ASPART (NovoLOG) [NovoLOG See Protocol SQ ACHS 09/04/20 09/04/20 History (formulary)] Melatonin 5 mg PO HS@209909/04/20 09/04/20 History Metoprolol Tartrate [Lopressor] 50 mg PO BID@0800,169909/04/20 09/04/20 History Na Phos,M-B/Na Phos,Di-Ba [Fleet 133 ml RECTAL DAILY PRN 09/04/20 09/04/20 History Adult] QUEtiapine [SEROquel] 25 mg PO HS@209909/04/20 09/04/20 History Thiamine [Vitamin B-1] 100 mg PO DAILY@169909/04/20 09/04/20 History Zinc Sulfate [Orazinc] 220 mg PO DAILY@169909/04/20 09/04/20 History bisacodyL [Dulcolax] 10 mg RECTAL DAILY PRN 09/04/20 09/04/20 History hydrALAZINE HCL [Apresoline] 50 mg PO BID@0800,209909/04/20 09/04/20 History Famotidine [Pepcid] 20 mg PO BID #0 09/08/20 09/04/20 Rx HYDROcodone/APAP 5-325MG [Lester 1 tab PO Q4HR PRN #18 tab 09/08/20 Rx 5-325] Nitrofurantoin Macrocrystal 100 mg PO QID #20 cap 09/08/20 Rx [Macrodantin] Warfarin [Coumadin] 1.5 mg PO DAILY@1700 #0 09/08/20 09/04/20 Rx dexAMETHasone [Dexamethasone] 6 mg PO DAILY@0800 3 Days #0 09/08/20 09/04/20 Rx Allergies Allergy/AdvReac Type Severity Reaction Status Date / Time erythromycin lactobionate Allergy RASH,VOMITI Verified 09/04/20 11:50 [From Erythrocin] NG influenza virus vaccine, Allergy LOW WHITE Verified 09/04/20 11:50 specific COUNT,INFLAMED [influenza virus LIVER vacc,specific] morphine Allergy Nausea & Verified 09/04/20 11:50 Vomiting shellfish derived [Shellfish] Allergy Swelling Verified 09/04/20 11:50 of tongue,rash iodine AdvReac Anaphylaxis Verified 09/04/20 11:50 Physical Exam Vitals: Vital Signs Temp Pulse Resp BP Pulse Ox 09/08/20 07:37 98.2 F 85 18 143/74 93 L 09/08/20 02:00 98.6 F 87 18 125/71 92 L 09/07/20 20:45 98.0 F 77 18 111/58 95 09/07/20 13:51 98.1 F 79 18 100/57 91 L Intake and Output 09/07/20 09/08/20 09/08/20 22:59 06:59 14:59 Other: Voiding Method Diaper Diaper Incontinent Incontinent # Voids 0 GENERAL EXAM: Alert, very pleasant, 64-year-old obese white female, currently on 5 L of oxygen with pulse ox of 93%, appears generally swollen comfortable in no apparent distress. HEAD: Normocephalic/atraumatic. EYES: Normal reaction of pupils, equal size. Conjunctiva pink, sclera white. NOSE: Clear with pink turbinates. THROAT: No erythema or exudates. NECK: No masses, no JVD, no thyroid enlargement, no adenopathy. CHEST: No chest wall deformity. Symmetrical expansion. LUNGS: Equal air entry with bilateral crackles CVS: Regular rate and rhythm, normal S1 and S2, no gallops, no murmurs, no rubs ABDOMEN: Soft, nontender. No hepatosplenomegaly, normal bowel sounds, no guarding or rigidity. EXTREMITIES: No clubbing, mild 1+ lower extremity edema, no cyanosis, 2+ pulses and upper and lower extremities. MUSCULOSKELETAL: Muscle strength and tone normal. SPINE: No scoliosis or deformity SKIN: No rashes CENTRAL NERVOUS SYSTEM: Alert and oriented -3. No focal deficits, tone is normal in all 4 extremities. PSYCHIATRIC: Alert and oriented -3. Appropriate affect. Intact judgment and insight. Results - Laboratory Findings CBC and BMP: 09/08/20 04:40 09/08/20 04:40 PT/INR, D-dimer PT 32.8 sec (9.0-12.0) H 09/08/20 04:40 INR 3.4 (<1.2) H 09/08/20 04:40 Abnormal lab findings: Abnormal Labs 09/04/20 09/04/20 09/04/20 12:35 12:47 12:50 RBC 2.68 L Hgb 9.1 L Hct 27.1 L MCV 101.2 H MCHC RDW 17.2 H Plt Count Neutrophils # 8.1 H Lymphocytes # 0.3 L Macrocytosis PT INR Sodium Chloride Carbon Dioxide Anion Gap BUN Creatinine BUN/Creatinine Ratio Glucose POC Glucose (mg/dL) Calcium ALT Total Protein Albumin Globulin Urine Appearance Cloudy H Urine Blood Moderate H Urine Nitrite Positive H Ur Leukocyte Esterase Large H Urine RBC 77 H Urine WBC 98 H Urine WBC Clumps Few H Urine Mucus Rare H Urine Yeast (Budding) Rare H Stool Occult Blood Positive H 09/04/20 09/04/20 09/04/20 12:50 12:50 22:00 RBC Hgb Hct MCV MCHC RDW Plt Count Neutrophils # Lymphocytes # Macrocytosis PT 19.8 H INR 2.0 H Sodium 136 L Chloride Carbon Dioxide 33 H Anion Gap BUN 23 H Creatinine BUN/Creatinine Ratio Glucose 134 H POC Glucose (mg/dL) 162 H Calcium ALT 93 H Total Protein 5.6 L Albumin 3.1 L Globulin Urine Appearance Urine Blood Urine Nitrite Ur Leukocyte Esterase Urine RBC Urine WBC Urine WBC Clumps Urine Mucus Urine Yeast (Budding) Stool Occult Blood 09/05/20 09/05/20 09/05/20 01:17 06:07 06:07 RBC 2.51 L 2.42 L Hgb 8.5 L 8.3 L Hct 25.7 L 25.4 L MCV 102.3 H 105.0 H MCHC RDW 17.2 H 17.2 H Plt Count 145 L Neutrophils # Lymphocytes # 0.5 L Macrocytosis PT INR Sodium Chloride 119 H Carbon Dioxide Anion Gap -1.00 L BUN Creatinine BUN/Creatinine Ratio 36.67 H Glucose POC Glucose (mg/dL) Calcium 8.4 L ALT 83 H Total Protein 4.9 L Albumin 3.50 L Globulin 1.4 L Urine Appearance Urine Blood Urine Nitrite Ur Leukocyte Esterase Urine RBC Urine WBC Urine WBC Clumps Urine Mucus Urine Yeast (Budding) Stool Occult Blood 09/05/20 09/05/20 09/05/20 14:29 16:56 20:15 RBC Hgb Hct MCV MCHC RDW Plt Count Neutrophils # Lymphocytes # Macrocytosis PT INR Sodium Chloride Carbon Dioxide Anion Gap BUN Creatinine BUN/Creatinine Ratio Glucose POC Glucose (mg/dL) 233 H 178 H 175 H Calcium ALT Total Protein Albumin Globulin Urine Appearance Urine Blood Urine Nitrite Ur Leukocyte Esterase Urine RBC Urine WBC Urine WBC Clumps Urine Mucus Urine Yeast (Budding) Stool Occult Blood 09/06/20 09/06/20 09/06/20 05:13 05:13 12:21 RBC 2.58 L Hgb 8.5 L Hct 27.7 L MCV 107.5 H MCHC 30.6 L RDW 17.8 H Plt Count Neutrophils # Lymphocytes # Macrocytosis Marked A PT 23.3 H INR 2.29 H Sodium Chloride Carbon Dioxide Anion Gap BUN Creatinine BUN/Creatinine Ratio Glucose POC Glucose (mg/dL) 105 H Calcium ALT Total Protein Albumin Globulin Urine Appearance Urine Blood Urine Nitrite Ur Leukocyte Esterase Urine RBC Urine WBC Urine WBC Clumps Urine Mucus Urine Yeast (Budding) Stool Occult Blood 09/06/20 09/06/20 09/07/20 17:43 20:36 05:11 RBC Hgb Hct MCV MCHC RDW Plt Count Neutrophils # Lymphocytes # Macrocytosis PT 26.6 H INR 2.65 H Sodium Chloride Carbon Dioxide Anion Gap BUN Creatinine BUN/Creatinine Ratio Glucose POC Glucose (mg/dL) 180 H 168 H Calcium ALT Total Protein Albumin Globulin Urine Appearance Urine Blood Urine Nitrite Ur Leukocyte Esterase Urine RBC Urine WBC Urine WBC Clumps Urine Mucus Urine Yeast (Budding) Stool Occult Blood 09/07/20 09/07/20 09/07/20 05:11 05:11 07:40 RBC 2.26 L Hgb 7.6 L Hct 24.4 L MCV 107.9 H MCHC RDW 17.7 H Plt Count Neutrophils # Lymphocytes # Macrocytosis Marked A PT INR Sodium Chloride Carbon Dioxide Anion Gap 13.30 H BUN Creatinine 0.5 L BUN/Creatinine Ratio 40.00 H Glucose POC Glucose (mg/dL) 112 H Calcium 8.2 L ALT 61 H Total Protein 4.4 L Albumin 3.10 L Globulin 1.3 L Urine Appearance Urine Blood Urine Nitrite Ur Leukocyte Esterase Urine RBC Urine WBC Urine WBC Clumps Urine Mucus Urine Yeast (Budding) Stool Occult Blood 09/07/20 09/07/20 09/07/20 11:32 17:05 20:35 RBC Hgb Hct MCV MCHC RDW Plt Count Neutrophils # Lymphocytes # Macrocytosis PT INR Sodium Chloride Carbon Dioxide Anion Gap BUN Creatinine BUN/Creatinine Ratio Glucose POC Glucose (mg/dL) 147 H 200 H 168 H Calcium ALT Total Protein Albumin Globulin Urine Appearance Urine Blood Urine Nitrite Ur Leukocyte Esterase Urine RBC Urine WBC Urine WBC Clumps Urine Mucus Urine Yeast (Budding) Stool Occult Blood 09/08/20 09/08/20 09/08/20 04:40 04:40 04:40 RBC 2.33 L Hgb 7.9 L Hct 24.6 L MCV 105.9 H MCHC RDW 17.8 H Plt Count Neutrophils # Lymphocytes # Macrocytosis Marked A PT 32.8 H INR 3.4 H Sodium Chloride Carbon Dioxide Anion Gap BUN Creatinine 0.5 L BUN/Creatinine Ratio 42.00 H Glucose POC Glucose (mg/dL) Calcium 8.3 L ALT 58 H Total Protein 4.7 L Albumin 3.30 L Globulin 1.4 L Urine Appearance Urine Blood Urine Nitrite Ur Leukocyte Esterase Urine RBC Urine WBC Urine WBC Clumps Urine Mucus Urine Yeast (Budding) Stool Occult Blood 09/08/20 11:47 RBC Hgb Hct MCV MCHC RDW Plt Count Neutrophils # Lymphocytes # Macrocytosis PT INR Sodium Chloride Carbon Dioxide Anion Gap BUN Creatinine BUN/Creatinine Ratio Glucose POC Glucose (mg/dL) 149 H Calcium ALT Total Protein Albumin Globulin Urine Appearance Urine Blood Urine Nitrite Ur Leukocyte Esterase Urine RBC Urine WBC Urine WBC Clumps Urine Mucus Urine Yeast (Budding) Stool Occult Blood - Diagnostic Findings Chest x-ray: report reviewed, image reviewed Additional studies: CT of the abdomen and pelvis EKG reviewed Assessment and Plan Plan: Assessment: #1. Acute hypoxic respiratory failure, related to recent history of COVID 19 pneumonia, and a component of mild fluid overload #2. Recent prolonged hospitalization for COVID 19 pneumonia from 08/16/2020 through 09/03/2020 for Severe hypoxic respiratory failure, patient required intensive care admission and high flow oxygen, received a Remdesivir, received IV steroids, therapeutic doses of Lovenox, and 2 units of convalescent plasma, improved, she was weaned down to 5 L per nasal cannula and discharge to ECF #3. Acute GI blood loss anemia, patient was admitted with acute lower abdominal pain/rectal bleeding and an episode of hematemesis at the ECF. There has been no recurrence of bleeding while in the hospital #4. Possible infectious versus ischemic etiology of rectal bleeding, GI service is following #5. History of DVT and pulmonary embolism on Coumadin #6. Recent history of craniotomy, related to hemorrhagic stroke, with acute left subdural hemorrhage. Patient remains on seizure prophylaxis in the form of Keppra #7. History of COPD #8. History of hypertension #9. Hypernatremia #10. Anxiety, depression #11. Diabetes mellitus type 2 Plan: Stop the IV fluids, chest x-ray has been reviewed, and there is increased pulmonary vascular congestion on the background of bilateral airspace disease related to recent history of COVID 19 pneumonia. Patient appears generally swollen, fluid overloaded, will add Lasix 20 mg twice daily, continue oral Decadron, from pulmonary perspective she is stable for discharge back to the ECF today. Continue weaning FiO2, maintain aspiration precautions. I performed a history & physical examination of the patient and discussed their management with my nurse practitioner, Meenu Baker. I reviewed the nurse practitioner's note and agree with the documented findings and plan of care. Lung sounds are positive for diffuse bilateral crackles. The findings and the impression was discussed with the patient. I attest to the documentation by the nurse practitioner. Time with Patient: Greater than 30
[2020-09-08 14:30] VITALS: BP 112/63; PULSE 83; TEMP 98.1
--- NOTE | 2020-09-08 14:30 | P.PN ---
Subjective Progress Note Date: 09/08/20 Principal diagnosis: Abdomianl pain and rectal bleeding Seen and examined lying in bed. She reports no current abdominal pain, nausea, or vomiting. She reports she's had no further episodes of rectal bleeding. She had normal bowel movement yesterday and today. She is being started on a regular diet. Hemoglobin improved 7.9 today from 7.6 yesterday. Plan is for discharge home today. Objective - Vital Signs Vital signs: Vital Signs Temp 98.2 F 09/08/20 07:37 Pulse 85 09/08/20 07:37 Resp 18 09/08/20 07:37 BP 143/74 09/08/20 07:37 Pulse Ox 93 L 09/08/20 07:37 Intake & Output 09/07/20 09/08/20 09/08/20 18:59 06:59 18:59 Other: Voiding Method Indwelling Catheter Diaper Diaper Incontinent Incontinent # Voids 0 - Exam General appearance: The patient is alert, oriented, appears in no acute distress. HET: Head is normocephalic and atraumatic. Conjunctiva pink. Sclera anicteric. Neck: Supple without lymphadenopathy. Abdomen: Soft, nontender, nondistended with bowel sounds. No guarding or rigidity. Extremities: Normal skin color and turgor. No pedal edema Neurological: No focal deficits. Alert and oriented 3. - Labs CBC & Chem 7: 09/08/20 04:40 09/08/20 04:40 Labs: Abnormal Lab Results - Last 24 Hours (Table) 09/07/20 09/07/20 09/07/20 Range/Units 05:11 11:32 17:05 RBC (3.80-5.40) m/uL Hgb (11.4-16.0) gm/dL Hct (34.0-46.0) % MCV (80.0-100.0) fL RDW (11.5-15.5) % Macrocytosis PT 26.6 H (9.9-11.9) sec INR 2.65 H (0.90-1.11) Creatinine (0.6-1.5) mg/dL BUN/Creatinine Ratio (12.00-20.00) Ratio POC Glucose (mg/dL) 147 H 200 H (75-99) mg/dL Calcium (8.7-10.3) mg/dL ALT (8-44) U/L Total Protein (6.2-8.2) g/dL Albumin (3.80-4.90) g/dL Globulin (1.6-3.3) g/dL 09/07/20 09/08/20 09/08/20 Range/Units 20:35 04:40 04:40 RBC (3.80-5.40) m/uL Hgb (11.4-16.0) gm/dL Hct (34.0-46.0) % MCV (80.0-100.0) fL RDW (11.5-15.5) % Macrocytosis PT 32.8 H (9.9-11.9) sec INR 3.4 H (0.90-1.11) Creatinine 0.5 L (0.6-1.5) mg/dL BUN/Creatinine Ratio 42.00 H (12.00-20.00) Ratio POC Glucose (mg/dL) 168 H (75-99) mg/dL Calcium 8.3 L (8.7-10.3) mg/dL ALT 58 H (8-44) U/L Total Protein 4.7 L (6.2-8.2) g/dL Albumin 3.30 L (3.80-4.90) g/dL Globulin 1.4 L (1.6-3.3) g/dL 09/08/20 Range/Units 04:40 RBC 2.33 L (3.80-5.40) m/uL Hgb 7.9 L (11.4-16.0) gm/dL Hct 24.6 L (34.0-46.0) % MCV 105.9 H (80.0-100.0) fL RDW 17.8 H (11.5-15.5) % Macrocytosis Marked A PT (9.9-11.9) sec INR (0.90-1.11) Creatinine (0.6-1.5) mg/dL BUN/Creatinine Ratio (12.00-20.00) Ratio POC Glucose (mg/dL) (75-99) mg/dL Calcium (8.7-10.3) mg/dL ALT (8-44) U/L Total Protein (6.2-8.2) g/dL Albumin (3.80-4.90) g/dL Globulin (1.6-3.3) g/dL Assessment and Plan (1) Rectal bleeding Narrative/Plan: This is a lady who presented to the hospital with acute lower abdominal pain with rectal bleeding for 2 days duration. Bleeding has resolved. Abdominal pain has completely resolved as well. Computed tomography scan showed some thickening of the rectum and left colon suspicious for acute colitis, possibly infectious versus ischemic in etiology which appears to be resolving. History of deep vein thrombosis and pulmonary embolism on Coumadin which has been currently on hold. Current Visit: Yes Status: Acute Code(s): K62.5 - HEMORRHAGE OF ANUS AND RECTUM SNOMED Code(s): 53195490 (2) Abdominal pain Current Visit: Yes Status: Acute Code(s): R10.9 - UNSPECIFIED ABDOMINAL PAIN SNOMED Code(s): 43020569 Plan: 1. Continue symptomatic and supportive care 2. Monitor CBC daily 3. Dr. Crawford had a lengthy discussion with patient regarding a gastroenterology workup including an EGD and colonoscopy, but the patient adamantly refused and continues to refuse any endoscopic intervention today as well. 4. Advance diet as tolerated 5. Patient may be discharged home from a gastroenterology standpoint with follow-up if any bleeding reoccurs and can always consider outpatient EGD and colonoscopy. Dr. Penn I agree with the dictator's note, documented as a scribe by Chelle Calvin.
[2020-09-08] MEDS ORDERED: FUROSEMIDE 20 MG TAB PO SCH (16:00)
[2020-09-08] MEDS: CHOLECALCIFEROL 25 MCG (1000 IU) TABLET PO SCH (17:40)
[2020-09-08] MEDS: ZINC SULFATE 220 MG CAP PO SCH (17:41)
[2020-09-08] MEDS: THIAMINE 100 MG TAB PO SCH (17:41)
[2020-09-08] MEDS: ASCORBIC ACID 500 MG TAB PO SCH (17:41)
[2020-09-08] MEDS ORDERED: WARFARIN 0.5 MG TAB PO ONE (18:00)
== END 2020-09-08 17:53 | DRG 698 ==
LOC: EC 11:40 → 6NMEDSUR 14:55 → OBSVTOIN 09-05 09:50
PROVIDERS: ADMIT Internal Medicine Geriatric Medicine; ATTEND Internal Medicine Geriatric Medicine
DX: T83.511A Infection and inflammatory reaction due to indwelling urethral catheter, initial encounter (principal); A41.9 Sepsis, unspecified organism; G92 Toxic encephalopathy; U07.1 COVID-19; J96.21 Acute and chronic respiratory failure with hypoxia; J12.82 Pneumonia due to coronavirus disease 2019; K29.71 Gastritis, unspecified, with bleeding; J44.0 Chronic obstructive pulmonary disease with (acute) lower respiratory infection; D62 Acute posthemorrhagic anemia; E87.0 Hyperosmolality and hypernatremia; D68.32 Hemorrhagic disorder due to extrinsic circulating anticoagulants; N39.0 Urinary tract infection, site not specified; Z96.642 Presence of left artificial hip joint; T45.515A Adverse effect of anticoagulants, initial encounter; M19.90 Unspecified osteoarthritis, unspecified site; F17.200 Nicotine dependence, unspecified, uncomplicated; I25.10 Atherosclerotic heart disease of native coronary artery without angina pectoris; I48.0 Paroxysmal atrial fibrillation; I10 Essential (primary) hypertension; E11.9 Type 2 diabetes mellitus without complications; E03.9 Hypothyroidism, unspecified; D69.6 Thrombocytopenia, unspecified; E78.5 Hyperlipidemia, unspecified; K21.9 Gastro-esophageal reflux disease without esophagitis; F41.0 Panic disorder [episodic paroxysmal anxiety]; F32.9 Major depressive disorder, single episode, unspecified; D32.9 Benign neoplasm of meninges, unspecified; L89.152 Pressure ulcer of sacral region, stage 2; M79.7 Fibromyalgia; K56.41 Fecal impaction; B95.2 Enterococcus as the cause of diseases classified elsewhere; Z90.710 Acquired absence of both cervix and uterus; Z87.11 Personal history of peptic ulcer disease; Z87.01 Personal history of pneumonia (recurrent); Z86.73 Personal history of transient ischemic attack (TIA), and cerebral infarction without residual deficits; Z86.718 Personal history of other venous thrombosis and embolism; Z86.711 Personal history of pulmonary embolism; Z86.011 Personal history of benign neoplasm of the brain; Z82.49 Family history of ischemic heart disease and other diseases of the circulatory system; Z80.0 Family history of malignant neoplasm of digestive organs; Z79.899 Other long term (current) drug therapy; Z79.890 Hormone replacement therapy; Z79.01 Long term (current) use of anticoagulants; Z88.7 Allergy status to serum and vaccine; Z88.8 Allergy status to other drugs, medicaments and biological substances; Z88.1 Allergy status to other antibiotic agents; Z91.013 Allergy to seafood; Z88.5 Allergy status to narcotic agent; Z90.49 Acquired absence of other specified parts of digestive tract
CPT/HCPCS: 36415; 71045; 74177; 80053; 81001; 82272; 82550; 83605; 83690; 84484; 85025; 85027; 85610; 85730; 87077; 87086; 87186; 93005; 94760; 96374; 96375; 99285